=== PATIENT | male | born 1980 | race Two or more races ===

== ENCOUNTER 2023-07-19 11:10 | Emergency (ER) | payer OTHER ==
[~2023-07-19] VITALS: Ht 157.5 cm; Wt 55.0 kg
[2023-07-19] MEDS ORDERED: ONDANSETRON HCL 4 MG/2 ML VIAL IV ONE (11:45)
[2023-07-19] MEDS ORDERED: SODIUM CHLORIDE 0.9% 2,000 ML IV ONE ×2 (11:45→14:00)
[2023-07-19 11:57] LABS: Basophils # (auto) 0.1 10 ^3/uL (0-0.2); Basophils % (auto) 1.2 % (0.0-2.0); Eosinophils # (auto) 0.1 10 ^3/uL (0-0.8); Eosinophils % (auto) 1.1 % (0.0-7.0); Hematocrit 38.6 % (41.0-53.0); Hemoglobin 12.7 g/dL (13.5-17.5); Lymphocytes # (auto) 1.8 10 ^3/uL (0.4-5.4); Lymphocytes % (auto) 18.8 % (10.0-50.0); Mean Corpuscular Hemoglobin 28.8 pg (28.0-32.0); Mean Corpuscular Hgb Conc. 32.9 g/dL (32.0-36.0); Mean Corpuscular Volume 87.4 fL (80.0-100.0); Monocytes # (auto) 0.4 10 ^3/uL (0-1.3); Monocytes % (auto) 4.1 % (0.0-12.0); Neutrophils # (auto) 7.3 10 ^3/uL (1.6-8.6); Neutrophils % (auto) 74.8 % (37.0-80.0); Nucleated Red Blood Cells % 0.1 %; Red Blood Cells 4.42 10^6/uL (4.5-5.90); Red Cell Distribution Width 14.4 % (11.8-14.3); White Blood Cell 9.8 10^3/uL (4.4-10.8)
[2023-07-19 13:36] LABS: Alanine Aminotransferase 13 U/L (7-40); Albumin 2.9 g/dL (3.2-4.8); Alkaline Phosphatase 221 U/L (46-116); Anion Gap 5.7 (5-15); Aspartate Aminotransferase 14 U/L (13-40); BUN/Creatinine Ratio 39.2 (10.0-20.0); Blood Urea Nitrogen 38 mg/dL (9-23); Calcium 8.4 mg/dL (8.5-10.1); Carbon Dioxide 27.3 mmol/L (20-30); Chloride 101 mmol/L (98-107); Glucose 378 mg/dL (74-106); Magnesium 1.7 mg/dL (1.6-2.6); Potassium 4.8 mmol/L (3.5-5.1); Sodium 134 mmol/L (136-145)
[2023-07-19 13:37] LABS: Bilirubin, Total 0.2 mg/dL (0.2-1.0); Total Protein 5.2 g/dL (5.7-8.2)
[2023-07-19 20:45] VITALS: BP 136/82; PULSE 87; RESP 16; TEMP 98.4; O2SAT 99
== END 2023-07-20 03:44 | disposition home or self-care (01) ==
LOC: ER 11:10
DX: E11.65 Type 2 diabetes mellitus with hyperglycemia (principal); R79.89 Other specified abnormal findings of blood chemistry; Z86.73 Personal history of transient ischemic attack (TIA), and cerebral infarction without residual deficits
CPT/HCPCS: 36415; 80053; 82010; 82962; 83735; 85025; 96361; 96374; 99283; J2405; J7030

== ENCOUNTER 2024-06-08 08:34 | Inpatient (IN) | payer OTHER ==
[~2024-06-08] VITALS: Ht 157.5 cm; Wt 41.9 kg
[2024-06-08] MEDS: SODIUM CHLORIDE 0.9% 1,000 ML IV ONE ×4 (09:00→10:45)
[2024-06-08] MEDS: AZITHROMYCIN 500MG/ 250ML 250 ML IV ONE (09:00)
[2024-06-08 09:10] LABS: Base Excess -22.9 mmol/L (-2.0-2.0)
[2024-06-08] MEDS: cefTRIAXone 1GM/50ML D5W 50 ML IV ONE (09:13)
[2024-06-08] MEDS: SODIUM BICARB 8.4% 50Meq/50ml SYR Vial IV ONE ×2 (09:15→16:08)
[2024-06-08 10:13] LABS: Basophils # (auto) 0.1 10 ^3/uL (0-0.2); Basophils % (auto) 0.5 % (0.0-2.0); Eosinophils # (auto) 0 10 ^3/uL (0-0.8); Hematocrit 28.8 % (41.0-53.0); Hemoglobin 9.1 g/dL (13.5-17.5); Lymphocytes # (auto) 1.8 10 ^3/uL (0.4-5.4); Lymphocytes % (auto) 8.1 % (10.0-50.0); Mean Corpuscular Hgb Conc. 31.6 g/dL (32.0-36.0); Mean Corpuscular Volume 88.5 fL (80.0-100.0); Monocytes # (auto) 1.1 10 ^3/uL (0-1.3); Monocytes % (auto) 5.2 % (0.0-12.0); Neutrophils % (auto) 86.2 % (37.0-80.0); Nucleated Red Blood Cells % 0.1 %; Red Blood Cells 3.25 10^6/uL (4.5-5.90); Red Cell Distribution Width 17.6 % (11.8-14.3)
[2024-06-08 10:16] LABS: Alanine Aminotransferase 28 U/L (7-40); Albumin 3.4 g/dL (3.2-4.8); Alkaline Phosphatase 273 U/L (46-116); Anion Gap 14.00001 (5-15); Aspartate Aminotransferase 17 U/L (13-40); Bilirubin, Total < 0.2 mg/dL (0.2-1.0); Calcium 8.7 mg/dL (8.7-10.4); Chloride 114 mmol/L (98-107); Glucose 188 mg/dL (74-106); Sodium 138 mmol/L (136-145); Total Protein 7.5 g/dL (5.7-8.2)
[2024-06-08 10:23] LABS: BUN/Creatinine Ratio 46.8 (10.0-20.0)
[2024-06-08 10:24] VITALS: PULSE 114; RESP 22; O2SAT 97
[2024-06-08 10:26] LABS: Potassium 6.1 mmol/L (3.5-5.1)
[2024-06-08 10:29] LABS: Blood Urea Nitrogen 264 mg/dL (9-23); Carbon Dioxide < 10 mmol/L (20-30)
[2024-06-08] MEDS: SODIUM ZIRCONIUM CYCL 10 GM PAK PO ONE (10:45)
[2024-06-08] MEDS: FUROSEMIDE 20 MG/2 ML VIAL IV ONE (10:45)
[2024-06-08] MEDS: ALBUTEROL SULF 2.5 MG/0.5ML(0.5%) NEB SOLN NEB ONE (10:56)
[2024-06-08] MEDS: SODIUM BICARB 8.4% 50Meq/50ml SYR INJ IV ONE (11:05)
[2024-06-08] MEDS: DEXTROSE (50%) 50ML SYRG IV ONE (11:05)
[2024-06-08] MEDS: CALCIUM GLUC 1,000mg/50ml-NS 50 ML IV ONE (11:06)
[2024-06-08] MEDS: InsuLIN REG 1unit/0.01ml Soln (100units/ml) IV ONE (11:08)
[2024-06-08] MEDS ORDERED: ONDANSETRON HCL 4 MG/2 ML VIAL IV PRN (13:45)
[2024-06-08] MEDS ORDERED: DOCUSATE SOD 100 MG CAP PO PRN (13:45)
[2024-06-08] MEDS ORDERED: ACETAMINOPHEN 325 MG TAB PO PRN (13:45)
[2024-06-08] MEDS ORDERED: HYDROcodone-ACET 5/325MG TAB PO PRN (13:45)
[2024-06-08] MEDS ORDERED: MORPHINE SULFATE INJ 2 MG/ml SYRG IV PRN (13:45)
[2024-06-08] MEDS ORDERED: NITROGLYCERIN 0.4 MG SL TAB SL PRN (13:45)
[2024-06-08] MEDS: SODIUM BICARB 50mEq/50ml Vial 150 ML in D5W 5% 1,000 ML IV SCH (15:00)
[2024-06-08 15:04] LABS: Urine Bacteria None Seen /hpf (None Seen)
[2024-06-08 15:25] LABS: Urine Blood 2+ /uL (Negative); Urine Budding Yeast FEW /hpf (None Seen); Urine Clarity Ex.Turbid (Clear); Urine Color Brown (Yellow); Urine Protein, UAD 2+ (Negative); Urine Specific Gravity 1.011 (1.001-1.035); Urine Urobilinogen Normal (Negative); Urine WBC 5800 /hpf (0 - 3); Urine WBC Clumps PRESENT /hpf (None Seen)
[2024-06-08] MEDS: InsuLIN REG 1unit/0.01ml Soln (100units/ml) SC SCH (17:23)
[2024-06-08] MEDS: ACCU-CHEK COMFORT CURVE STRIP VI SCH (17:23)
[2024-06-08 19:30] VITALS: PULSE 133; RESP 22; O2SAT 97
[2024-06-08] MEDS: InsuLIN REG 1unit/0.01ml Soln (100units/ml) ONE (21:43)
[2024-06-08 22:13] LABS: Chloride 115 mmol/L (98-107); Glucose 231 mg/dL (74-106)
[2024-06-08 22:14] LABS: Sodium 149 mmol/L (136-145)
[2024-06-08 22:22] LABS: BUN/Creatinine Ratio 48.5 (10.0-20.0); Calcium 7.9 mg/dL (8.7-10.4); Potassium 3.8 mmol/L (3.5-5.1)
[2024-06-08 22:35] LABS: Blood Urea Nitrogen 238 mg/dL (9-23)
[2024-06-08 22:38] LABS: Anion Gap 17 (5-15); Carbon Dioxide 17 mmol/L (20-30)
[2024-06-08] MEDS: HEPARIN SODIUM (PORCINE) 5000 UNITS/ML 1ML VIAL SC SCH (22:38)
[2024-06-09] VITALS (35 sets, daily range): BP systolic 113–155; BP diastolic 64–107; PULSE 99–117; RESP 10–25; TEMP 97.5–98.2; O2SAT 95–100
[2024-06-09 05:13] LABS: Basophils # (auto) 0.1 10 ^3/uL (0-0.2); Basophils % (auto) 0.4 % (0.0-2.0); Eosinophils # (auto) 0 10 ^3/uL (0-0.8); Hematocrit 23.6 % (41.0-53.0); Hemoglobin 7.9 g/dL (13.5-17.5); Lymphocytes # (auto) 2.1 10 ^3/uL (0.4-5.4); Lymphocytes % (auto) 11.1 % (10.0-50.0); Mean Corpuscular Hemoglobin 27.6 pg (28.0-32.0); Mean Corpuscular Hgb Conc. 33.3 g/dL (32.0-36.0); Monocytes # (auto) 1.4 10 ^3/uL (0-1.3); Monocytes % (auto) 7.5 % (0.0-12.0); Neutrophils # (auto) 15.3 10 ^3/uL (1.6-8.6); Red Blood Cells 2.85 10^6/uL (4.5-5.90); Red Cell Distribution Width 17.1 % (11.8-14.3); White Blood Cell 18.8 10^3/uL (4.4-10.8)
[2024-06-09 05:27] LABS: Alanine Aminotransferase 23 U/L (7-40); Albumin 2.8 g/dL (3.2-4.8); Alkaline Phosphatase 206 U/L (46-116); Anion Gap 14 (5-15); Aspartate Aminotransferase 20 U/L (13-40); Bilirubin, Total 0.2 mg/dL (0.2-1.0); Calcium 7.9 mg/dL (8.7-10.4); Carbon Dioxide 24 mmol/L (20-30); Chloride 112 mmol/L (98-107); Glucose 169 mg/dL (74-106); Potassium 3.7 mmol/L (3.5-5.1); Sodium 150 mmol/L (136-145)
[2024-06-09 05:28] LABS: Total Protein 6.3 g/dL (5.7-8.2)
[2024-06-09 05:35] LABS: BUN/Creatinine Ratio 46.3 (10.0-20.0)
[2024-06-09 05:54] LABS: Blood Urea Nitrogen 209 mg/dL (9-23)
[2024-06-09] MEDS: SOD CHL 0.45% 1,000 ML IV SCH (06:41)
[2024-06-09] MEDS: BUMETANIDE 2.5mg/10ml (0.25 mg/ml) INJ IV ONE (06:46)
[2024-06-09] MEDS: PANTOPRAZOLE 40 MG/10 ML VIAL INJ IV SCH (09:20)
[2024-06-09] MEDS: AZITHROMYCIN 500MG/ 250ML 250 ML IV SCH (09:20)
[2024-06-09] MEDS: cefTRIAXone 1GM/50ML D5W 50 ML IV SCH (10:00)
[2024-06-09] MEDS: SODIUM CHLORIDE 0.9% 1,000 ML IV ONE (12:13)
[2024-06-09 13:34] LABS: Chloride 114 mmol/L (98-107); Potassium 3.6 mmol/L (3.5-5.1); Sodium 151 mmol/L (136-145)
[2024-06-09 13:35] LABS: Anion Gap 12 (5-15); Carbon Dioxide 25 mmol/L (20-30)
[2024-06-09 13:36] LABS: Calcium 7.4 mg/dL (8.7-10.4)
[2024-06-09 13:49] LABS: BUN/Creatinine Ratio 45.9 (10.0-20.0)
[2024-06-09 13:52] LABS: Blood Urea Nitrogen 179 mg/dL (9-23); Glucose 61 mg/dL (74-106)
[2024-06-10] VITALS (27 sets, daily range): BP systolic 99–186; BP diastolic 63–106; PULSE 85–124; RESP 11–22; TEMP 94.3–99.2; O2SAT 95–100
[2024-06-10] MEDS: hydrALAZINE HCL 20 MG/ML VL IV PRN (05:06)
[2024-06-10] MEDS ORDERED: hydrALAZINE HCL 20 MG/ML VL IV PRN (05:15)
[2024-06-10] MEDS ORDERED: hydrALAZINE HCL 20 MG/ML VL IV ONE (06:00)
[2024-06-10 08:40] LABS: Basophils # (auto) 0 10 ^3/uL (0-0.2); Basophils % (auto) 0.2 % (0.0-2.0); Eosinophils # (auto) 0 10 ^3/uL (0-0.8); Hematocrit 25.3 % (41.0-53.0); Hemoglobin 8.4 g/dL (13.5-17.5); Lymphocytes # (auto) 2.2 10 ^3/uL (0.4-5.4); Lymphocytes % (auto) 15.6 % (10.0-50.0); Mean Corpuscular Hemoglobin 28.2 pg (28.0-32.0); Mean Corpuscular Hgb Conc. 33.2 g/dL (32.0-36.0); Mean Corpuscular Volume 84.9 fL (80.0-100.0); Monocytes # (auto) 0.8 10 ^3/uL (0-1.3); Monocytes % (auto) 5.5 % (0.0-12.0); Neutrophils # (auto) 11.2 10 ^3/uL (1.6-8.6); Neutrophils % (auto) 78.7 % (37.0-80.0); Red Blood Cells 2.98 10^6/uL (4.5-5.90); Red Cell Distribution Width 16.8 % (11.8-14.3); White Blood Cell 14.2 10^3/uL (4.4-10.8)
[2024-06-10 09:01] LABS: Chloride 112 mmol/L (98-107); Potassium 3.5 mmol/L (3.5-5.1); Sodium 151 mmol/L (136-145)
[2024-06-10 09:02] LABS: Anion Gap 19 (5-15); Carbon Dioxide 20 mmol/L (20-30)
[2024-06-10 09:04] LABS: Calcium 7.2 mg/dL (8.7-10.4)
[2024-06-10 09:07] LABS: Glucose 149 mg/dL (74-106)
[2024-06-10 09:16] LABS: BUN/Creatinine Ratio 50.8 (10.0-20.0)
[2024-06-10 09:17] LABS: Blood Urea Nitrogen 162 mg/dL (9-23)
[2024-06-10] MEDS: POTASSIUM CHL 20 Meq TABLET PO ONE (14:42)
[2024-06-10] MEDS: DEXTROSE (50%) 50ML SYRG IV PRN (17:46)
[2024-06-11] VITALS (15 sets, daily range): BP systolic 130–153; BP diastolic 86–105; PULSE 72–109; RESP 12–32; TEMP 98.3–98.8; O2SAT 94–100
[2024-06-11 10:16] LABS: Chloride 115 mmol/L (98-107); Potassium 3.4 mmol/L (3.5-5.1); Sodium 149 mmol/L (136-145)
[2024-06-11 10:17] LABS: Anion Gap 12 (5-15); Carbon Dioxide 22 mmol/L (20-30)
[2024-06-11 10:18] LABS: Calcium 6.8 mg/dL (8.7-10.4)
[2024-06-11 10:22] LABS: Glucose 218 mg/dL (74-106)
[2024-06-11 10:23] LABS: BUN/Creatinine Ratio 49.6 (10.0-20.0)
[2024-06-11 10:25] LABS: Blood Urea Nitrogen 125 mg/dL (9-23)
[2024-06-11 10:58] LABS: Basophils # (auto) 0 10 ^3/uL (0-0.2); Eosinophils # (auto) 0 10 ^3/uL (0-0.8); Lymphocytes # (auto) 2.3 10 ^3/uL (0.4-5.4); Monocytes # (auto) 0.7 10 ^3/uL (0-1.3); Nucleated Red Blood Cells % 0.1 %; White Blood Cell 14.3 10^3/uL (4.4-10.8)
[2024-06-11 11:00] LABS: Basophils % (auto) 0.2 % (0.0-2.0); Hematocrit 23.2 % (41.0-53.0); Hemoglobin 7.5 g/dL (13.5-17.5); Lymphocytes % (auto) 16.3 % (10.0-50.0); Mean Corpuscular Hemoglobin 28.1 pg (28.0-32.0); Mean Corpuscular Hgb Conc. 32.5 g/dL (32.0-36.0); Mean Corpuscular Volume 86.6 fL (80.0-100.0); Monocytes % (auto) 4.9 % (0.0-12.0); Neutrophils # (auto) 11.2 10 ^3/uL (1.6-8.6); Neutrophils % (auto) 78.6 % (37.0-80.0); Red Blood Cells 2.68 10^6/uL (4.5-5.90)
[2024-06-11] MEDS ORDERED: POTASSIUM CHL 20 Meq TABLET PO ONE (14:45)
[2024-06-11] MEDS: SOD CHL 0.45% 1,000 ML IV SCH (15:12)
[2024-06-11] MEDS: POTASSIUM EFFERVESENT TAB 25 MEQ PO ONE ×2 (17:16→17:45)
[2024-06-12] VITALS (8 sets, daily range): BP systolic 98–157; BP diastolic 70–102; PULSE 10–103; RESP 12–19; TEMP 97.6–98.5; O2SAT 93–100
[2024-06-12 04:53] LABS: Basophils # (auto) 0 10 ^3/uL (0-0.2); Basophils % (auto) 0.2 % (0.0-2.0); Eosinophils # (auto) 0 10 ^3/uL (0-0.8); Eosinophils % (auto) 0.1 % (0.0-7.0); Hematocrit 25.7 % (41.0-53.0); Hemoglobin 8.3 g/dL (13.5-17.5); Lymphocytes # (auto) 3.4 10 ^3/uL (0.4-5.4); Lymphocytes % (auto) 27.8 % (10.0-50.0); Mean Corpuscular Hgb Conc. 32.2 g/dL (32.0-36.0); Mean Corpuscular Volume 86.9 fL (80.0-100.0); Monocytes # (auto) 0.9 10 ^3/uL (0-1.3); Monocytes % (auto) 7.1 % (0.0-12.0); Neutrophils % (auto) 64.8 % (37.0-80.0); Nucleated Red Blood Cells % 0.1 %; Red Blood Cells 2.96 10^6/uL (4.5-5.90); Red Cell Distribution Width 16.5 % (11.8-14.3); White Blood Cell 12.3 10^3/uL (4.4-10.8)
[2024-06-12 05:05] LABS: Anion Gap 10 (5-15); Carbon Dioxide 25 mmol/L (20-30); Chloride 110 mmol/L (98-107); Sodium 145 mmol/L (136-145)
[2024-06-12 05:11] LABS: BUN/Creatinine Ratio 42.3 (10.0-20.0); Glucose 131 mg/dL (74-106)
[2024-06-12 05:54] LABS: Blood Urea Nitrogen 85 mg/dL (9-23)
[2024-06-12] MEDS: SOD CHL 0.45% 1,000 ML IV SCH (17:27)
[2024-06-12] MEDS: NYSTATIN TOPICAL POWDER 15GM TOP SCH (22:00)
[2024-06-13] VITALS (9 sets, daily range): BP systolic 107–127; BP diastolic 73–86; PULSE 86–100; RESP 16–20; TEMP 98.1–98.8; O2SAT 90–100
[2024-06-13 05:52] LABS: Basophils # (auto) 0 10 ^3/uL (0-0.2); Basophils % (auto) 0.3 % (0.0-2.0); Eosinophils # (auto) 0.1 10 ^3/uL (0-0.8); Lymphocytes # (auto) 3.7 10 ^3/uL (0.4-5.4); Monocytes # (auto) 0.8 10 ^3/uL (0-1.3); Monocytes % (auto) 6.3 % (0.0-12.0)
[2024-06-13 05:54] LABS: Eosinophils % (auto) 1.1 % (0.0-7.0); Hematocrit 23.1 % (41.0-53.0); Hemoglobin 7.6 g/dL (13.5-17.5); Lymphocytes % (auto) 29.4 % (10.0-50.0); Mean Corpuscular Hemoglobin 28.4 pg (28.0-32.0); Mean Corpuscular Hgb Conc. 32.7 g/dL (32.0-36.0); Mean Corpuscular Volume 86.8 fL (80.0-100.0); Neutrophils # (auto) 7.9 10 ^3/uL (1.6-8.6); Neutrophils % (auto) 62.9 % (37.0-80.0); Nucleated Red Blood Cells % 0.1 %; Red Blood Cells 2.66 10^6/uL (4.5-5.90); Red Cell Distribution Width 16.2 % (11.8-14.3); White Blood Cell 12.5 10^3/uL (4.4-10.8)
[2024-06-13 06:16] LABS: Alanine Aminotransferase 22 U/L (7-40); Alkaline Phosphatase 231 U/L (46-116); Anion Gap 7 (5-15); BUN/Creatinine Ratio 39.1 (10.0-20.0); Calcium 6.7 mg/dL (8.7-10.4); Carbon Dioxide 24 mmol/L (20-30); Chloride 109 mmol/L (98-107); Glucose 107 mg/dL (74-106); Potassium 3.8 mmol/L (3.5-5.1); Sodium 140 mmol/L (136-145)
[2024-06-13 06:17] LABS: Albumin 2.5 g/dL (3.2-4.8); Aspartate Aminotransferase 18 U/L (13-40)
[2024-06-13 06:18] LABS: Bilirubin, Total 0.2 mg/dL (0.2-1.0); Blood Urea Nitrogen 66 mg/dL (9-23); Total Protein 5.6 g/dL (5.7-8.2)
[2024-06-13] MEDS: SOD CHL 0.45% 1,000 ML IV SCH (15:44)
[2024-06-14] VITALS (9 sets, daily range): BP systolic 124–186; BP diastolic 78–96; PULSE 87–109; RESP 17–20; TEMP 36.9; O2SAT 97–100
[2024-06-14 07:05] LABS: Basophils % (auto) 0.4 % (0.0-2.0); Eosinophils # (auto) 0.1 10 ^3/uL (0-0.8); Hemoglobin 7.7 g/dL (13.5-17.5)
[2024-06-14 07:09] LABS: Basophils # (auto) 0 10 ^3/uL (0-0.2); Eosinophils % (auto) 0.9 % (0.0-7.0); Hematocrit 23.9 % (41.0-53.0); Lymphocytes # (auto) 4.4 10 ^3/uL (0.4-5.4); Lymphocytes % (auto) 30.6 % (10.0-50.0); Mean Corpuscular Hemoglobin 28.3 pg (28.0-32.0); Mean Corpuscular Hgb Conc. 32.2 g/dL (32.0-36.0); Monocytes # (auto) 0.7 10 ^3/uL (0-1.3); Monocytes % (auto) 4.9 % (0.0-12.0); Neutrophils % (auto) 63.2 % (37.0-80.0); Nucleated Red Blood Cells % 0.1 %; Red Blood Cells 2.71 10^6/uL (4.5-5.90); Red Cell Distribution Width 15.9 % (11.8-14.3); White Blood Cell 14.2 10^3/uL (4.4-10.8)
[2024-06-14 07:38] LABS: Calcium 6.8 mg/dL (8.7-10.4); Chloride 108 mmol/L (98-107); Potassium 4.2 mmol/L (3.5-5.1); Sodium 136 mmol/L (136-145)
[2024-06-14 07:39] LABS: Anion Gap 11 (5-15); Carbon Dioxide 17 mmol/L (20-30)
[2024-06-14 07:44] LABS: BUN/Creatinine Ratio 26.8 (10.0-20.0); Glucose 115 mg/dL (74-106)
[2024-06-14 07:47] LABS: Blood Urea Nitrogen 41 mg/dL (9-23)
[2024-06-14] MEDS ORDERED: CIPR-173 PO (12:49)
[2024-06-15 01:00] VITALS: BP 125/74; PULSE 97; RESP 16; TEMP 99.1; O2SAT 98
[2024-06-15 05:00] VITALS: BP 140/86; PULSE 98; RESP 17; TEMP 98; O2SAT 98
[2024-06-15 08:46] VITALS: BP 132/79; PULSE 96; RESP 17; TEMP 98.2; O2SAT 97
[2024-06-15 22:00] VITALS: BP 129/54; PULSE 62; RESP 17; TEMP 97.5; O2SAT 95
== END 2024-06-15 08:37 | disposition hospice, home (50) | DRG 720 ==
LOC: ER 08:34 → EDBD 08:34 → DOU 13:43 → DOU IN ICU 06-09 02:00 → TELE-WESTW 06-11 18:30
PROVIDERS: ADMIT Nurse Practitioner; ATTEND Nurse Practitioner
DX: A41.9 Sepsis, unspecified organism (principal); R65.21 Severe sepsis with septic shock; G93.41 Metabolic encephalopathy; E87.20 Acidosis, unspecified; E46 Unspecified protein-calorie malnutrition; E11.22 Type 2 diabetes mellitus with diabetic chronic kidney disease; D64.9 Anemia, unspecified; N17.9 Acute kidney failure, unspecified; E86.0 Dehydration; N13.6 Pyonephrosis; E11.65 Type 2 diabetes mellitus with hyperglycemia; E87.5 Hyperkalemia; R62.7 Adult failure to thrive; N18.32 Chronic kidney disease, stage 3b; Z86.73 Personal history of transient ischemic attack (TIA), and cerebral infarction without residual deficits; Z74.01 Bed confinement status; Z51.5 Encounter for palliative care; Z99.2 Dependence on renal dialysis; Z83.3 Family history of diabetes mellitus; Z82.3 Family history of stroke; Z68.1 Body mass index [BMI] 19.9 or less, adult; Z79.4 Long term (current) use of insulin; N30.00 Acute cystitis without hematuria; R79.89 Other specified abnormal findings of blood chemistry
CPT/HCPCS: 36415; 36600; 71045; 76775; 80048; 80053; 81001; 82805; 82962; 83605; 84132; 85025; 87040; 87081; 87086; 87088; 87186; 93005; 93306; 94640; 96366; 96367; 96368; 96372; 96375; G0378; J1815; J2470; J7042

== ENCOUNTER 2024-06-22 05:34 | Inpatient (IN) | payer OTHER ==
[~2024-06-22] VITALS: Ht 149.9 cm; Wt 45.0 kg
[2024-06-22] VITALS (8 sets, daily range): BP systolic 117–161; BP diastolic 76–97; PULSE 65–89; RESP 13–17; TEMP 97.4–98.5; O2SAT 95–100
[~2024-06-22 05:34] MED LIST: CIPR-173 PO
[2024-06-22 07:05] LABS: Chloride 107 mmol/L (98-107); Potassium 4.1 mmol/L (3.5-5.1); Sodium 136 mmol/L (136-145)
[2024-06-22 07:06] LABS: Anion Gap 11 (5-15); Carbon Dioxide 18 mmol/L (20-30)
[2024-06-22 07:07] LABS: Basophils # (auto) 0 10 ^3/uL (0-0.2); Calcium 7.7 mg/dL (8.7-10.4); Eosinophils # (auto) 0 10 ^3/uL (0-0.8); Monocytes # (auto) 0.8 10 ^3/uL (0-1.3); Nucleated Red Blood Cells % 0.1 %
[2024-06-22 07:11] LABS: BUN/Creatinine Ratio 20.7 (10.0-20.0); Basophils % (auto) 0.5 % (0.0-2.0); Blood Urea Nitrogen 60 mg/dL (9-23); Eosinophils % (auto) 0.1 % (0.0-7.0); Glucose 167 mg/dL (74-106); Hematocrit 21.1 % (41.0-53.0); Lymphocytes % (auto) 15.7 % (10.0-50.0); Mean Corpuscular Hemoglobin 28.1 pg (28.0-32.0); Mean Corpuscular Hgb Conc. 32.8 g/dL (32.0-36.0); Mean Corpuscular Volume 85.8 fL (80.0-100.0); Monocytes % (auto) 13.4 % (0.0-12.0); Neutrophils # (auto) 4.3 10 ^3/uL (1.6-8.6); Neutrophils % (auto) 70.3 % (37.0-80.0); Red Blood Cells 2.46 10^6/uL (4.5-5.90); Red Cell Distribution Width 16.2 % (11.8-14.3); White Blood Cell 6.1 10^3/uL (4.4-10.8)
[2024-06-22 07:18] LABS: Hemoglobin 6.9 g/dL (13.5-17.5)
[2024-06-22] MEDS ORDERED: DOCUSATE SOD 100 MG CAP PO PRN (11:00)
[2024-06-22] MEDS ORDERED: ACETAMINOPHEN 325 MG TAB PO PRN (11:00)
[2024-06-22] MEDS ORDERED: NITROGLYCERIN 0.4 MG SL TAB SL PRN (11:00)
[2024-06-22] MEDS ORDERED: MORPHINE SULFATE INJ 2 MG/ml SYRG IV PRN ×2 (11:00)
[2024-06-22] MEDS ORDERED: ONDANSETRON HCL 4 MG/2 ML VIAL IV PRN (11:00)
[2024-06-22] MEDS ORDERED: HYDROcodone-ACET 5/325MG TAB PO PRN (11:00)
[2024-06-22 11:58] LABS: % Iron Saturation 13.1 % (20-55)
[2024-06-22 12:52] LABS: Folate (Folic Acid) 4.56 ng/mL (>5.38)
[2024-06-22 13:04] LABS: Urine Bacteria None Seen /hpf (None Seen)
[2024-06-22 13:24] LABS: Urine Blood 2+ /uL (Negative); Urine Clarity Ex.Turbid (Clear); Urine Color Brown (Yellow); Urine Protein, UAD 2+ (Negative); Urine Urobilinogen Normal (Negative); Urine WBC 5043 /hpf (0 - 3); Urine WBC Clumps PRESENT /hpf (None Seen); Urine pH 6.5 (5.0-9.0)
[2024-06-22] MEDS ORDERED: DEXTROSE (50%) 50ML SYRG IV PRN (17:15)
[2024-06-22] MEDS: SODIUM CHLORIDE 0.9% 1,000 ML IV SCH (20:03)
[2024-06-22 21:16] LABS: Hematocrit 29.2 % (41.0-53.0); Hemoglobin 9.6 g/dL (13.5-17.5)
[2024-06-22] MEDS: ASCORBIC ACID 500 MG TAB PO SCH (21:53)
[2024-06-22] MEDS: InsuLIN REG 1unit/0.01ml Soln (100units/ml) SC SCH (21:54)
[2024-06-22] MEDS: ACCU-CHEK COMFORT CURVE STRIP VI SCH (21:54)
[2024-06-23] VITALS (10 sets, daily range): BP systolic 113–165; BP diastolic 56–111; PULSE 70–117; RESP 14–18; TEMP 98–98.3; O2SAT 98–100
[2024-06-23 05:06] LABS: Basophils # (auto) 0 10 ^3/uL (0-0.2); Basophils % (auto) 0.5 % (0.0-2.0); Eosinophils # (auto) 0 10 ^3/uL (0-0.8); Eosinophils % (auto) 0.4 % (0.0-7.0); Hematocrit 30.7 % (41.0-53.0); Hemoglobin 10.2 g/dL (13.5-17.5); Lymphocytes # (auto) 1.8 10 ^3/uL (0.4-5.4); Lymphocytes % (auto) 24.8 % (10.0-50.0); Mean Corpuscular Hemoglobin 28.9 pg (28.0-32.0); Mean Corpuscular Hgb Conc. 33.2 g/dL (32.0-36.0); Monocytes # (auto) 0.8 10 ^3/uL (0-1.3); Monocytes % (auto) 11.3 % (0.0-12.0); Neutrophils # (auto) 4.5 10 ^3/uL (1.6-8.6); Red Blood Cells 3.54 10^6/uL (4.5-5.90); Red Cell Distribution Width 15.4 % (11.8-14.3); White Blood Cell 7.2 10^3/uL (4.4-10.8)
[2024-06-23 05:20] LABS: Alanine Aminotransferase 60 U/L (7-40); Albumin 2.9 g/dL (3.2-4.8); Alkaline Phosphatase 452 U/L (46-116); Anion Gap 10 (5-15); Aspartate Aminotransferase 57 U/L (13-40); BUN/Creatinine Ratio 21.3 (10.0-20.0); Calcium 7.7 mg/dL (8.7-10.4); Carbon Dioxide 17 mmol/L (20-30); Chloride 113 mmol/L (98-107); Glucose 101 mg/dL (74-106); Sodium 140 mmol/L (136-145)
[2024-06-23 05:21] LABS: Bilirubin, Total 0.2 mg/dL (0.2-1.0)
[2024-06-23 05:28] LABS: Blood Urea Nitrogen 47 mg/dL (9-23)
[2024-06-23 08:57] LABS: Magnesium 1.2 mg/dL (1.6-2.6)
[2024-06-23 08:58] LABS: Phosphorus 5.6 mg/dL (2.4-5.1)
[2024-06-23] MEDS: PANTOPRAZOLE 40 MG TAB PO ONE (09:25)
[2024-06-23] MEDS: ZINC SULFATE 220mg CAP or TAB PO SCH (09:56)
[2024-06-23] MEDS: MULTIPLE VITAMIN TAB PO SCH (09:56)
[2024-06-23 11:21] LABS: Amphetamine Screen, Urine Neg (NEGATIVE)
[2024-06-23 11:24] LABS: Barbiturate Scree,Urine Neg (NEGATIVE); Benzodiazephine Screen, Urine Neg (NEGATIVE); Cannabinoid Screen, Urine Neg (NEGATIVE); Cocaine Screen, Urine Neg (NEGATIVE); Creatinine, Urine 14.44 mg/dL (30.0-125.0); Opiate Scree,Urine Neg (NEGATIVE); Phencyclidine Screen, Urine Neg (NEGATIVE)
[2024-06-23 11:27] LABS: Protein, Urine 317.7 mg/dL (0.0-11.9)
[2024-06-23] MEDS: hydrALAZINE HCL 20 MG/ML VL IV PRN (12:37)
[2024-06-23] MEDS: ERGOCALCIFEROL 50,000 UNIT(1.25MG) CAP PO SCH (14:09)
[2024-06-23] MEDS: MAGNESIUM SULFATE 1GM/100ML 100 ML IV SCH (14:09)
[2024-06-23] MEDS: CHOLECALCIFEROL (VITD3) 1,000UNIT=25mCg TAB PO SCH (16:05)
[2024-06-24] VITALS (7 sets, daily range): BP systolic 121–156; BP diastolic 57–101; PULSE 79–89; RESP 17–21; TEMP 97.9–98.9; O2SAT 96–99
[2024-06-24] MEDS: PANTOPRAZOLE 40 MG TAB PO SCH (05:28)
[2024-06-24 07:07] LABS: Anion Gap 12 (5-15); Carbon Dioxide 16 mmol/L (20-30); Chloride 110 mmol/L (98-107); Potassium 3.7 mmol/L (3.5-5.1); Sodium 138 mmol/L (136-145)
[2024-06-24 07:09] LABS: Calcium 7.8 mg/dL (8.7-10.4)
[2024-06-24 07:13] LABS: Glucose 117 mg/dL (74-106)
[2024-06-24 07:14] LABS: BUN/Creatinine Ratio 19.3 (10.0-20.0); Blood Urea Nitrogen 39 mg/dL (9-23)
[2024-06-24] MEDS ORDERED: CIPR-173 PO (11:13)
[2024-06-24] MEDS ORDERED: FUROSEMIDE 40 MG/4 ML VIAL ONE (13:10)
[2024-06-24] MEDS: CIPROFLOXACIN 400MG/200ML 200 ML IV ONE (15:06)
[2024-06-24] MEDS: FUROSEMIDE 40 MG/4 ML VIAL IV ONE (15:07)
== END 2024-06-24 17:59 | disposition hospice, home (50) | DRG 52 ==
LOC: ER 05:34 → EDBD 05:34 → TELE 10:49 → TELE-WESTW 20:59
PROVIDERS: ADMIT Nurse Practitioner; ATTEND Nurse Practitioner
PROC: 30233N1 Transfusion of Nonautologous Red Blood Cells into Peripheral Vein, Percutaneous Approach (ICD-10-PCS; principal; 2024-06-22)
DX: G93.41 Metabolic encephalopathy (principal); N17.0 Acute kidney failure with tubular necrosis; R64 Cachexia; E43 Unspecified severe protein-calorie malnutrition; E11.649 Type 2 diabetes mellitus with hypoglycemia without coma; E88.09 Other disorders of plasma-protein metabolism, not elsewhere classified; N13.6 Pyonephrosis; R62.7 Adult failure to thrive; D64.9 Anemia, unspecified; E11.22 Type 2 diabetes mellitus with diabetic chronic kidney disease; E11.65 Type 2 diabetes mellitus with hyperglycemia; E83.42 Hypomagnesemia; N18.9 Chronic kidney disease, unspecified; Z68.20 Body mass index [BMI] 20.0-20.9, adult; Z51.5 Encounter for palliative care; Z86.73 Personal history of transient ischemic attack (TIA), and cerebral infarction without residual deficits; Z83.3 Family history of diabetes mellitus; Z82.3 Family history of stroke; Z74.01 Bed confinement status; Z79.4 Long term (current) use of insulin
CPT/HCPCS: 36415; 74176; 78707; 80048; 80053; 80307; 81001; 82043; 82270; 82306; 82570; 82607; 82728; 82746; 82962; 83036; 83540; 83550; 83735; 83930; 83935; 84100; 84133; 84156; 84300; 84443; 85014; 85018; 85025; 86850; 86900; 86901; 86920; 87086; 87088; 96360; G0378; J1815

== ENCOUNTER 2024-12-29 05:09 | Inpatient (IN) | payer OTHER ==
[~2024-12-29] VITALS: Ht 160 cm; Wt 55.6 kg
[~2024-12-29 05:09] MED LIST changes: +AMLO1TAB23 PO; +GLIP-110 PO; +LISI40TA16 PO; +METF-370 PO; +TAMS0.4C39 PO
[2024-12-29] MEDS: DEXTROSE 50% SYRINGE 50 ML IV ONE ×2 (05:35→09:43)
[2024-12-29] MEDS: DEXTROSE (50%) 50ML SYRG IV ONE ×3 (05:50→09:30)
[2024-12-29 06:02] LABS: Basophils # (auto) 0.1 10 ^3/uL (0-0.2); Eosinophils # (auto) 0 10 ^3/uL (0-0.8); Hemoglobin 9.1 g/dL (13.5-17.5)
[2024-12-29 06:05] LABS: Basophils % (auto) 0.3 % (0.0-2.0); Hematocrit 28.7 % (41.0-53.0); Lymphocytes # (auto) 1.1 10 ^3/uL (0.4-5.4); Lymphocytes % (auto) 6.8 % (10.0-50.0); Mean Corpuscular Hemoglobin 29.6 pg (28.0-32.0); Mean Corpuscular Hgb Conc. 31.6 g/dL (32.0-36.0); Mean Corpuscular Volume 93.7 fL (80.0-100.0); Neutrophils # (auto) 14.3 10 ^3/uL (1.6-8.6); Neutrophils % (auto) 86.9 % (37.0-80.0); Platelet Count (auto) 282 10^3/uL (140-450); Red Blood Cells 3.07 10^6/uL (4.5-5.90); Red Cell Distribution Width 18.6 % (11.8-14.3); White Blood Cell 16.5 10^3/uL (4.4-10.8)
[2024-12-29 06:10] LABS: INR 0.97 (0.9-1.15); Partial Thromboplastin Time 29.6 SEC (24.5-34.5); Prothrombin Time 10.3 sec (9.3-11.8)
--- NOTE | 2024-12-29 06:44 | ECG ---
[facility] Test Date: 2024-12-29 Test Time: 05:12:21 Pat Name: SARAH BETH VARGAS Department: ED Room: [address] [place] [address] Gender: M [employer] Representative [employer]: YISEL : 1980 Requested By: VANESSA LEE Order Number: [id number] Reading MD: Balwinder Gama Measurements Intervals [place] Rate: 109 P: 19 WA: 155 QRS: 13 QRSD: 87 T: 30 QT: 337 QTc: 454 Interpretive Statements Sinus tachycardia Baseline wander in lead(s) V1 Electronically Signed On 12-29-2024 17:52:10 PST by Balwinder Gama Please click the below link to view image of tracing.
[2024-12-29 06:55] LABS: Alanine Aminotransferase 32 U/L (7-40); Anion Gap 10 (5-15); Aspartate Aminotransferase 32 U/L (13-40); BUN/Creatinine Ratio 29.4 (10.0-20.0); Magnesium 1.7 mg/dL (1.6-2.6); Sodium 137 mmol/L (136-145); Total Protein 6.2 g/dL (5.7-8.2)
[2024-12-29 06:56] LABS: Albumin 3.1 g/dL (3.2-4.8); Alkaline Phosphatase 400 U/L (46-116); Bilirubin, Total < 0.2 mg/dL (0.2-1.0); Blood Urea Nitrogen 63 mg/dL (9-23); Calcium 8.6 mg/dL (8.7-10.4); Carbon Dioxide 16 mmol/L (20-31); Chloride 111 mmol/L (98-107); Glucose 179 mg/dL (74-106); Potassium 5.5 mmol/L (3.5-5.1)
--- NOTE | 2024-12-29 06:56 | ED.PDOC ---
History of Present Illness HPI Comments 44-year-old male brought by paramedics from home because of altered level of consciousness. He has been behaving different for the past few hours as per family. Blood sugar on arrival was 40 for which he was given dextrose prior to coming to the ER. He was placed on oxygen because shortness a breath. Patient unable to answering any questions. History of cerebral palsy. He is bed ridden. Blood sugar again dipped in the ER for which she was given D50. Family not at bedside. Chief Complaint: Hypoglycemia Time Seen by MD: 06:22 Primary Care Provider: EBONIE Reviewed Notes: Nurses Notes, Medications, Allergies Allergies: Coded Allergies: NO KNOWN ALLERGIES (Unverified , 07/19/23) Home Meds Active Scripts Ciprofloxacin Hcl (Cipro) 500 Mg Tab, 1 TAB PO BID for 7 Days, #14 TAB Prov:RAÚL STEEL Angie WELSH 06/24/24 Information Source: Emergency Med Personnel Mode of Arrival: EMS Severity: Moderate Timing: Hours Duration: Since onset Past Medical History PAST MEDICAL HISTORY: Cancer, CVA, DM Surgical History: Denies all surgeries Family History Family History: Reviewed,noncontributory to illness Social History Smoker: Non-Smoker Alcohol: Denies ETOH Use Drugs: Denies Drug Use Lives In: Home Respiratory: reports: shortness of breath Unable to Obtain due to: Altered Mental Status Physical Exam General Appearance: Moderate Distress HEENT: Normal ENT Inspection, Pharynx Normal, TMs Normal Neck: Full Range of Motion, Non-Tender, Normal, Normal Inspection Respiratory: Respiratory Distress, Other (Coarse breath sounds) Cardiovascular: No Edema, No JVD, No Murmur, No Gallop, Normal Peripheral Pulses, Regular Rate/Rhythm Breast Exam: Deferred Gastrointestinal: No Organomegaly, Non Tender, No Pulsatile Mass, Normal Bowel Sounds, Soft Genitalia: Deferred Pelvic: Deferred Rectal: Deferred Extremities: Other (Cerebral palsy) Musculoskeletal : Apperance: Normal Neurologic: Alert (Name) Cerebellar Function: NOT DONE Reflexes: NOT DONE Skin: Dry, Normal Color, Warm Peripheral Pulses: 3+ Radial (R), 3+ Radial (L) Lymphatic: No Adenopathy Was a procedure done? Was a procedure done?: No Differential Dx Considerations may include: Pneumonia Electrolyte imbalance X-Ray, Labs, Meds, VS Vital Signs Date Time Temp Pulse Resp B/P (MAP) Pulse Ox O2 Delivery O2 Flow Rate FiO2 12/29/24 08:04 97.7 118 28 155/98 (117) 92 97.7 12/29/24 08:02 118 28 92 Nasal Cannula* 3 32 12/29/24 08:00 130 12/29/24 06:30 97.9 107 31 155/98 (117) 94 97.9 12/29/24 06:30 Nasal Cannula* 3 32 12/29/24 05:18 97.6 114 24 159/90 (113) 95 12/29/24 05:12 109 Lab Test 12/29/24 08:39 12/29/24 07:23 12/29/24 07:02 12/29/24 06:57 Range/Units Lactic Acid Level 1.4 0.4-2.0 mmol/L POC Glucose 130 H 44 *L 70-106 mg/dl Urine Color Colorless Yellow Urine Clarity Turbid H Clear Urine pH 6.0 5.0-9.0 Urine Specific [place] 1.014 1.001-1.035 Urine Protein 3+ H Negative Urine Ketones Negative Negative Urine Blood 1+ H Negative /uL Urine Nitrite Negative Negative Urine Bilirubin Negative Negative Urine Urobilinogen Normal Negative mg/dL Urine Leukocyte Esterase 3+ Negative /uL Urine RBC 3 0 - 3 /hpf Urine WBC Clumps Present None Seen /hpf Urine Microscopic WBC 447 H 0-3 /HPF Urine Squamous Epithelial Cells Few <5 /hpf Urine Bacteria None seen None Seen /hpf Urine Hyaline Casts Few 0 - 2 /lpf Urine Yeast (Budding) Occasional None Seen /hpf Urine Glucose 2+ H Normal mg/dL Test 12/29/24 05:44 Range/Units White Blood Count 16.5 H 4.4-10.8 10^3/uL Red Blood Count 3.07 L 4.5-5.90 10^6/uL Hemoglobin 9.1 L 13.5-17.5 g/dL Hematocrit 28.7 L 41.0-53.0 % Mean Corpuscular Volume 93.7 80.0-100.0 fL Mean Corpuscular Hemoglobin 29.6 28.0-32.0 pg Mean Corpuscular Hemoglobin Concent 31.6 L 32.0-36.0 g/dL Red Cell Distribution Width 18.6 H 11.8-14.3 % Platelet Count 282 140-450 10^3/uL Mean Platelet Volume 11.3 H 6.9-10.8 fL Neutrophils (%) (Auto) 86.9 H 37.0-80.0 % Lymphocytes (%) (Auto) 6.8 L 10.0-50.0 % Monocytes (%) (Auto) 6.0 0.0-12.0 % Eosinophils (%) (Auto) 0.0 0.0-7.0 % Basophils (%) (Auto) 0.3 0.0-2.0 % Neutrophils # (Auto) 14.3 H 1.6-8.6 10 ^3/uL Lymphocytes # (Auto) 1.1 0.4-5.4 10 ^3/uL Monocytes # (Auto) 1.0 0-1.3 10 ^3/uL Eosinophils # (Auto) 0 0-0.8 10 ^3/uL Basophils # (Auto) 0.1 0-0.2 10 ^3/uL Nucleated Red Blood Cells 0.0 % Prothrombin Time 10.3 9.3-11.8 sec Prothrombin Time INR 0.97 0.9-1.15 Activated Partial Thromboplast Time 29.6 24.5-34.5 SEC Sodium Level 137 136-145 mmol/L Potassium Level 5.5 H 3.5-5.1 mmol/L Chloride Level 111 H 98-107 mmol/L Carbon Dioxide Level 16 L 20-31 mmol/L Anion Gap 10 5-15 Blood Urea Nitrogen 63 H 9-23 mg/dL Creatinine 2.14 H 0.700-1.30 mg/dL Glomerular Filtration Rate Calc 38 >90 mL/min BUN/Creatinine Ratio 29.4 H 10.0-20.0 Serum Glucose 179 H 74-106 mg/dL Lactic Acid Level 2.1 *H 0.4-2.0 mmol/L Calcium Level 8.6 L 8.7-10.4 mg/dL Magnesium Level 1.7 1.6-2.6 mg/dL Total Bilirubin < 0.2 L 0.2-1.0 mg/dL Aspartate Amino Transferase (AST) 32 13-40 U/L Alanine Aminotransferase (ALT) 32 7-40 U/L Alkaline Phosphatase 400 H 46-116 U/L Troponin I High Sensitivity 16 </=54 ng/L B-Type Natriuretic Peptide 319.46 0-100 pg/mL Total Protein 6.2 5.7-8.2 g/dL Albumin 3.1 L 3.2-4.8 g/dL Thyroid Stimulating Hormone (TSH) Pending Current Medications Medications (Trade) Dose Ordered Sig/Wai Route Start Time Stop Time Status Last Admin Dextrose 50 ml ONCE ONCE IV 12/29/24 05:45 12/29/24 05:46 DC 12/29/24 05:50 Dextrose 1,000 ml @ 75 mls/hr [id number] ONCE IV 12/29/24 07:30 12/29/24 20:49 12/29/24 07:47 Dextrose 50 ml ONCE ONCE IV 12/29/24 07:30 12/29/24 07:31 DC 12/29/24 07:10 Acetaminophen (Tylenol Tablet) 650 mg Q6HP PRN PO 12/29/24 09:15 12/29/24 14:50 Sodium Chloride 1,000 ml @ 250 mls/hr Q4H ONCE IV 12/29/24 09:15 12/29/24 13:14 DC 12/29/24 11:40 [place] [address] Ph: [phone] DIAGNOSTIC IMAGING Diagnostic Imaging Report : [id number] Signed PATIENT: SARAH BETH VARGAS ACCT: [id number] UNIT: [id number] : 1980 LOC: ER ROOM / BED: / AGE / SEX: 44 / M ADM STATUS: REG ER SERVICE [id number] ORDERING PHYSICIAN: VANESSA LEE MD PROCEDURE(s): CXRP - CHEST PORTABLE REASON: SOB ORDER NUMBER(s): [id number], ACCESSION NUMBER(s): [id number] CHEST RADIOGRAPH Indication: SOB Technique: Single frontal view of the chest was obtained Comparison: XY CHEST PORTABLE on DOS: 06/08/24 FINDINGS: Lines and Tubes: None Lungs: Hazy left lung opacities. Pleura: No effusion. No pneumothorax. Cardiomediastinal contours: Cardiomegaly. Bones: No acute osseous abnormality. IMPRESSION: 1. Hazy left lung opacities which may represent pneumonia in the appropriate clinical setting. ATED BY: AMERICA HALEY MD DICTATED DATE/TIME: 12/29/24726 SIGNED BY: AMERICA HALEY MD SIGNED DATE/TIME: 12/29/24726 CC: Time of 1ST Reevaluation: 06:55 Reevaluation 1ST: Unchanged Patient Education/Counseling: Diagnosis, Treatment, Prognosis Family Education/Counseling: No Family Present Departure 1 Departure Time of Disposition: 06:56 Impression: Primary Impression: Metabolic encephalopathy Additional Impressions: Pneumonitis Hypoglycemia Disposition: ADMITTED INPATIENT Admit to: Med Surg Condition: Guarded Critical Care Note Critical Care Time?: Yes (90 min-critical care time only) Stability Stability form required: No Heart Score Heart Score: Heart Score Response (Comments) Value History N/A 0 EKG N/A 0 Age N/A 0 Risk Factors N/A 0 Troponin N/A 0 Total 0 I personally scribed for AMBER SAGASTUME MD ([email or web address]) on 12/29/24 at 07:48. Electronically submitted by Lupe Hemphill ([email or web address]). AMBER SAGASTUME MD Dec 29, 2024 06:56
[2024-12-29 06:59] LABS: Urine Bacteria None Seen /hpf (None Seen)
[2024-12-29 07:14] LABS: Lactic Acid w/Reflex 2.1 mmol/L (0.4-2.0)
--- NOTE | 2024-12-29 07:29 | DVH ---
CHEST RADIOGRAPH Indication: SOB Technique: Single frontal view of the chest was obtained Comparison: XY CHEST PORTABLE on DOS: 06/08/24 FINDINGS: Lines and Tubes: None Lungs: Hazy left lung opacities. Pleura: No effusion. No pneumothorax. Cardiomediastinal contours: Cardiomegaly. Bones: No acute osseous abnormality. IMPRESSION: 1. Hazy left lung opacities which may represent pneumonia in the appropriate clinical setting.
[2024-12-29 07:37] LABS: Urine Blood 1+ /uL (Negative); Urine Budding Yeast OCCASIONAL /hpf (None Seen); Urine Clarity Turbid (Clear); Urine Color Colorless (Yellow); Urine Hyaline Cast FEW /lpf (0 - 2); Urine Protein, UAD 3+ (Negative); Urine Specific Gravity 1.014 (1.001-1.035); Urine Squamous Epithelial Cell FEW /hpf (<5); Urine Urobilinogen Normal (Negative); Urine WBC 447 /HPF (0-3); Urine WBC Clumps PRESENT /hpf (None Seen)
[2024-12-29] MEDS: DEXTROSE 10% 1,000 ML IV ONE (07:47)
[2024-12-29 08:02] VITALS: PULSE 118; RESP 28; O2SAT 92
[2024-12-29] MEDS ORDERED: ONDANSETRON HCL 4 MG/2 ML VIAL IV PRN (09:15)
[2024-12-29] MEDS ORDERED: MORPHINE SULFATE INJ 2 MG/ml SYRG IV PRN (09:15)
[2024-12-29] MEDS ORDERED: DOCUSATE SOD 100 MG CAP PO PRN (09:15)
[2024-12-29] MEDS ORDERED: HYDROcodone-ACET 5/325MG TAB PO PRN (09:15)
[2024-12-29] MEDS ORDERED: NITROGLYCERIN 0.4 MG SL TAB SL PRN (09:15)
--- NOTE | 2024-12-29 09:23 | DVHHP2 ---
Admitting Diagnosis: ALOC History of Present Illness 44 yo male patient with hx of cerebral palsy and bed ridden BIBA with c/o ALOC. Family reported that patient had been behaving differently for a few hours. Mahsa ent was found to have a BS of 40. While in the emergency department the patient was evaluated by the provider, As per provider: Labs, vital signs, and imagining monitored. Patient will be admitted for further evaluation and treatment. I discussed admission with the patient/family and is in agreement to treatment plan. Patient Family History: FH: diabetes mellitus FHx: stroke Allergies: Coded Allergies: NO KNOWN ALLERGIES (Unverified , 07/19/23) Home Meds Active Scripts Ciprofloxacin Hcl (Cipro) 500 Mg Tab, 1 TAB PO BID for 7 Days, #14 TAB Prov:RAÚL STEEL HAIR TINTER 06/24/24 Current Medications Current Medications Medications (Trade) Dose Ordered Sig/Wai Route PRN Reason Start Time Stop Time Status Last Admin Acetaminophen/ Hydrocodone Bitart ([place] 5/325MG Tab) 1 tab Q4HP PRN PO MODERATE PAIN (4-6 PAIN SCALE) 12/29/24 09:15 Ondansetron HCl (Zofran) 4 mg Q4HP PRN IV NAUSEA / VOMITING 12/29/24 09:15 Docusate Sodium (Colace Capsule) 100 mg BIDPRN PRN PO FOR CONSTIPATION 12/29/24 09:15 Zinc Sulfate 220 mg DAILY PO 12/29/24 10:00 12/29/24 12:00 Ascorbic Acid (Vitamin C Tablet) 500 mg BID PO 12/29/24 10:00 12/29/24 21:43 Multivitamins (Mvi Tab) 1 tab DAILY PO 12/29/24 10:00 12/29/24 12:00 Acetaminophen (Tylenol Tablet) 650 mg Q6HP PRN PO PAIN SCALE 1-3 OR TEMP>100.4 12/29/24 09:15 12/29/24 14:50 Nitroglycerin (Ntrostat Sublingual) 0.4 mg Q5MINP PRN SL FOR CHEST PAIN 12/29/24 09:15 Morphine Sulfate 2 mg Q30M PRN IV FOR CHEST PAIN 12/29/24 09:15 Piperacillin Sod/ Tazobactam Sod 100 ml @ 25 mls/hr Q8H IV 12/29/24 18:00 12/29/24 17:42 Doxycycline Monohydrate (Vibramycin Tablet) 100 mg BID PO 12/29/24 10:00 12/29/24 21:43 Dextrose 1,000 ml @ 100 mls/hr Q10H IV 12/29/24 09:15 12/29/24 20:43 Amlodipine Besylate (Norvasc Tablet) 10 mg DAILY PO 12/29/24 10:00 12/29/24 12:00 Tamsulosin HCl (Flomax) 0.4 mg QPM PO 12/29/24 18:00 12/29/24 17:42 Metoprolol Tartrate (Lopressor) 5 mg Q4HPRN PRN IV Sustained HR > 110bpm 12/29/24 15:30 Review of Systems Constitutional: denies chills, denies fever, denies malaise Eyes: denies eye pain, denies vision change ENT: denies ear pain, denies headache, denies nasal congestion, denies painful swallowing, denies voice change Cardiovascular: denies chest pain, denies edema, denies orthopnea, denies palpitations, denies paroxysmal nocturnal dyspnea Respiratory: denies cough, denies shortness of breath Gastrointestinal: denies constipation, denies diarrhea, denies nausea, denies vomiting Genitourinary: denies dysuria, denies frequent urination, denies urethral discharge Musculoskeletal: denies back pain, denies joint pain, denies muscle pain Skin: denies bruising, denies itching, denies rash Neurological: denies focal weakness, denies headache, denies sensory changes Psychiatric: denies anxiety, denies depression Endocrine: denies polydipsia, denies polyuria Hematologic/Lymphatic: denies easy bleeding, denies easy bruising, denies enlarged lymph nodes Allergic/Immunologic: denies allergy, denies hives Vital Signs Vital Signs Date Time Temp Pulse Resp B/P (MAP) Pulse Ox O2 Delivery O2 Flow Rate FiO2 12/29/24 19:30 98.2 99 23 129/84 (99) 93 98.2 12/29/24 19:30 Nasal Cannula* 4 36 Physical Exam General Appearance: alert, no distress HEENT: EOMI, PERRLA, normal external inspect of ears, no icterus, no nasal drainage Neck: no carotid bruit, no jugular venous distention (JVD), no lymphadenopathy Chest: normal thorax Respiratory: clear to auscultation, normal air movement Cardiovascular: regular rate and rhythm, no diastolic murmur, no jugular venous distention (JVD), no rub, no systolic murmur Abdominal: soft, no hepatomegaly, no mass, no splenomegaly, no tenderness Genitourinary: grossly normal external Musculoskeletal: no joint tenderness, no swelling Extremities: normal pulses, no calf tenderness, no clubbing, no cyanosis, no edema Skin: no bruising, no jaundice, no rash Neurological: alert, No focal deficit Results Labs Test 12/29/24 20:10 12/29/24 15:56 12/29/24 12:49 12/29/24 06:57 Range/Units POC Glucose 145 H 70-106 mg/dl D-Dimer, Quantitative 1.00 H 0.0-0.49 mg/L FEU Lactic Acid Level 2.7 *H 0.4-2.0 mmol/L Urine Color Colorless Yellow Urine Clarity Turbid H Clear Urine pH 6.0 5.0-9.0 Urine Specific [place] 1.014 1.001-1.035 Urine Protein 3+ H Negative Urine Ketones Negative Negative Urine Blood 1+ H Negative /uL Urine Nitrite Negative Negative Urine Bilirubin Negative Negative Urine Urobilinogen Normal Negative mg/dL Urine Leukocyte Esterase 3+ Negative /uL Urine RBC 3 0 - 3 /hpf Urine WBC Clumps Present None Seen /hpf Urine Microscopic WBC 447 H 0-3 /HPF Urine Squamous Epithelial Cells Few <5 /hpf Urine Bacteria None seen None Seen /hpf Urine Hyaline Casts Few 0 - 2 /lpf Urine Yeast (Budding) Occasional None Seen /hpf Urine Glucose 2+ H Normal mg/dL Test 12/29/24 05:44 Range/Units White Blood Count 16.5 H 4.4-10.8 10^3/uL Red Blood Count 3.07 L 4.5-5.90 10^6/uL Hemoglobin 9.1 L 13.5-17.5 g/dL Hematocrit 28.7 L 41.0-53.0 % Mean Corpuscular Volume 93.7 80.0-100.0 fL Mean Corpuscular Hemoglobin 29.6 28.0-32.0 pg Mean Corpuscular Hemoglobin Concent 31.6 L 32.0-36.0 g/dL Red Cell Distribution Width 18.6 H 11.8-14.3 % Platelet Count 282 140-450 10^3/uL Mean Platelet Volume 11.3 H 6.9-10.8 fL Neutrophils (%) (Auto) 86.9 H 37.0-80.0 % Lymphocytes (%) (Auto) 6.8 L 10.0-50.0 % Monocytes (%) (Auto) 6.0 0.0-12.0 % Eosinophils (%) (Auto) 0.0 0.0-7.0 % Basophils (%) (Auto) 0.3 0.0-2.0 % Neutrophils # (Auto) 14.3 H 1.6-8.6 10 ^3/uL Lymphocytes # (Auto) 1.1 0.4-5.4 10 ^3/uL Monocytes # (Auto) 1.0 0-1.3 10 ^3/uL Eosinophils # (Auto) 0 0-0.8 10 ^3/uL Basophils # (Auto) 0.1 0-0.2 10 ^3/uL Nucleated Red Blood Cells 0.0 % Prothrombin Time 10.3 9.3-11.8 sec Prothrombin Time INR 0.97 0.9-1.15 Activated Partial Thromboplast Time 29.6 24.5-34.5 SEC Sodium Level 137 136-145 mmol/L Potassium Level 5.5 H 3.5-5.1 mmol/L Chloride Level 111 H 98-107 mmol/L Carbon Dioxide Level 16 L 20-31 mmol/L Anion Gap 10 5-15 Blood Urea Nitrogen 63 H 9-23 mg/dL Creatinine 2.14 H 0.700-1.30 mg/dL Glomerular Filtration Rate Calc 38 >90 mL/min BUN/Creatinine Ratio 29.4 H 10.0-20.0 Serum Glucose 179 H 74-106 mg/dL Calcium Level 8.6 L 8.7-10.4 mg/dL Magnesium Level 1.7 1.6-2.6 mg/dL Total Bilirubin < 0.2 L 0.2-1.0 mg/dL Aspartate Amino Transferase (AST) 32 13-40 U/L Alanine Aminotransferase (ALT) 32 7-40 U/L Alkaline Phosphatase 400 H 46-116 U/L Troponin I High Sensitivity 16 </=54 ng/L B-Type Natriuretic Peptide 319.46 0-100 pg/mL Total Protein 6.2 5.7-8.2 g/dL Albumin 3.1 L 3.2-4.8 g/dL Thyroid Stimulating Hormone (TSH) 4.37 0.55-4.78 uIU/mL Plan 1. Sepsis Monitor, IV fluids, IV abx, cardiology consult 2. Hypoglycemia Monitor, hypoglycemia treatment 3. DM II Monitor, wound care consult 4. Pneumonia Monitor, IV abx 5. Bed bound Monitor 6. Acute cystitis w/o hematuria Monitor, IV abx 7. Hx of CVA with residual deficits Monitor 8. CKD3b Monitor, nephrology consult Plan discussed with: Patient, Other RAÚL STEEL NP Dec 29, 2024 09:23
[2024-12-29 11:26] LABS: Lactic Acid w/Reflex 2.1 mmol/L (0.4-2.0)
[2024-12-29] MEDS: SODIUM CHLORIDE 0.9% 1,000 ML IV ONE ×2 (11:40→14:04)
[2024-12-29] MEDS: PIPERACILLIN-TAZOB 3.375GM 100 ML IV ONE (11:40)
[2024-12-29] MEDS: ASCORBIC ACID 500 MG TAB PO SCH (12:00)
[2024-12-29] MEDS: ZINC SULFATE 220mg CAP or TAB PO SCH (12:00)
[2024-12-29] MEDS: DOXYCYCLINE 100 MG TAB/CAP PO SCH (12:00)
[2024-12-29] MEDS: MULTIPLE VITAMIN TAB PO SCH (12:00)
[2024-12-29] MEDS: amLODIPine BESYLATE 5 MG TAB PO SCH (12:00)
[2024-12-29] MEDS: ACETAMINOPHEN 325 MG TAB PO PRN (14:50)
--- NOTE | 2024-12-29 15:14 | DVHINCON2 ---
Date of service: Dec 29, 2024 Referring Physician Sil Vergara NP Reason for Consultation Tachycardia / Diastolic Heart Failure History of Present Illness This is a 44-year old male known outside to our practice who initially presented for altered mental status found to be hypoglycemic with initial serum glucose level of 44 which later improved status post Dextrose administration. It is of note, patient is on Glipizide outpatient which could have attributed to the underlying hypoglycemia. Patient was also found tachycardic and febrile with highest documented temperature of 101.4 in the setting of sepsis from underlying pneumonia with superimposing urinary tract infection as initial WBC count was found elevated at 16.5 with peak lactic acid level of 2.7. Initial creatinine level found elevated at 2.15 with an initial potassium level of 5.5. Initial magnesium level found to be 1.7. TSH level was found normal at 4.37. D-Dimer did reveal elevation at 1.00. Patient does have underlying history of diastolic heart failure which patient underwent Echocardiogram (12/20/2024 [facility]) revealing TDS, EF 65%, stage I diastolic dysfunction, RV size and function is normal. mild LA dilation. Both AV and MV are opening adequately, mild TR with RVSP 26 mmhg. At present, BNP level was found elevated at 319 however chest imaging reveals no evidence for vascular congestion. 12-lead electrocardiogram upon arrival revealed sinus tachycardia at 109 bpm with no acute ischemic changes. Initial HS troponin level was found unremarkable at 16. As the patient presented with tac hycardia and previously known history of diastolic heart failure, Cardiology services have now been involved for cardiac aspects of care. 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 Left Atrium: Left atrium is mildly dilated. No , No MS. Trace MR. Mild TR with RVSP 32 mmHg Echocardiogram: (06/09/2024 [facility]) revealed Left ventricle: Left ventricle is normal-sized with normal systolic function. LVEF was around 55%. There was no gross wall motion abnormality. Right ventricle was normal-sized with normal systolic function. Both atria were normal-sized. Aortic valve: Aortic valve is trileaflet. There was no aortic stenosis/insufficiency. There was no mitral regurgitation. There was trivial tricuspid regurgitation. Pulmonary valve was not well visualized. Right ventricular systolic pressure was around 30 mm Hg. There was no pericardial effusion Past Surgical History Reviewed Family History: FH: diabetes mellitus FHx: stroke Allergies: Coded Allergies: NO KNOWN ALLERGIES (Unverified , 07/19/23) Home Meds Reported Medications Tamsulosin Hcl (Tamsulosin Hcl) 0.4 Mg Cap, 1 CAP PO DAILY for 30 Days, #30 12/31/24 Lisinopril (Lisinopril) 40 Mg Tab, 1 TAB PO DAILY for 30 Days, #30 12/31/24 Amlodipine Besylate (Amlodipine Besylate) 10 Mg Tab, 1 TAB PO DAILY for 30 Days, #30 12/31/24 Metformin Hydrochloride (Metformin Hcl) 500 Mg Tab, 1 TAB PO DAILY for 30 Days, #30 TAKE 1 TABLET BY MOUTH ONCE DAILY WITH BREAKFAST. 12/31/24 Glipizide (Glipizide Er) 5 Mg Tab, 1 TAB PO DAILY for 30 Days, #30 TAKE 1 TABLET BY MOUTH ONCE DAILY WITH BREAKFAST. 12/31/24 Current Medications Current Medications Medications (Trade) Dose Ordered Sig/Wai Route PRN Reason Start Time Stop Time Status Last Admin Acetaminophen/ Hydrocodone Bitart ([place] 5/325MG Tab) 1 tab Q4HP PRN PO MODERATE PAIN (4-6 PAIN SCALE) 12/29/24 09:15 Ondansetron HCl (Zofran) 4 mg Q4HP PRN IV NAUSEA / VOMITING 12/29/24 09:15 Docusate Sodium (Colace Capsule) 100 mg BIDPRN PRN PO FOR CONSTIPATION 12/29/24 09:15 Zinc Sulfate 220 mg DAILY PO 12/29/24 10:00 12/29/24 12:00 Ascorbic Acid (Vitamin C Tablet) 500 mg BID PO 12/29/24 10:00 12/29/24 12:00 Multivitamins (Mvi Tab) 1 tab DAILY PO 12/29/24 10:00 12/29/24 12:00 Acetaminophen (Tylenol Tablet) 650 mg Q6HP PRN PO PAIN SCALE 1-3 OR TEMP>100.4 12/29/24 09:15 12/29/24 14:50 Nitroglycerin (Ntrostat Sublingual) 0.4 mg Q5MINP PRN SL FOR CHEST PAIN 12/29/24 09:15 Morphine Sulfate 2 mg Q30M PRN IV FOR CHEST PAIN 12/29/24 09:15 Piperacillin Sod/ Tazobactam Sod 100 ml @ 25 mls/hr Q8H IV 12/29/24 18:00 Doxycycline Monohydrate (Vibramycin Tablet) 100 mg BID PO 12/29/24 10:00 12/29/24 12:00 Dextrose 1,000 ml @ 100 mls/hr Q10H IV 12/29/24 09:15 Amlodipine Besylate (Norvasc Tablet) 10 mg DAILY PO 12/29/24 10:00 12/29/24 12:00 Tamsulosin HCl (Flomax) 0.4 mg QPM PO 12/29/24 18:00 Review of Systems A 14-point review of systems is negative unless otherwise noted above Vital Signs Vital Signs Date Time Temp Pulse Resp B/P (MAP) Pulse Ox O2 Delivery O2 Flow Rate FiO2 12/29/24 14:50 101.4 12/29/24 14:00 120 36 168/102 (124) 96 12/29/24 08:02 Nasal Cannula* 3 32 Physical Exam Heart: S1 and S2 present Lungs: Scattered rhonchi Abdomen: Benign. Extremities: Distal pulses palpable, 2+. No peripheral edema Labs/Diagnostic Data Labs Test 12/29/24 12:55 12/29/24 12:49 12/29/24 06:57 12/29/24 05:44 Range/Units POC Glucose 99 70-106 mg/dl Lactic Acid Level 2.7 *H 0.4-2.0 mmol/L Urine Color Colorless Yellow Urine Clarity Turbid H Clear Urine pH 6.0 5.0-9.0 Urine Specific [place] 1.014 1.001-1.035 Urine Protein 3+ H Negative Urine Ketones Negative Negative Urine Blood 1+ H Negative /uL Urine Nitrite Negative Negative Urine Bilirubin Negative Negative Urine Urobilinogen Normal Negative mg/dL Urine Leukocyte Esterase 3+ Negative /uL Urine RBC 3 0 - 3 /hpf Urine WBC Clumps Present None Seen /hpf Urine Microscopic WBC 447 H 0-3 /HPF Urine Squamous Epithelial Cells Few <5 /hpf Urine Bacteria None seen None Seen /hpf Urine Hyaline Casts Few 0 - 2 /lpf Urine Yeast (Budding) Occasional None Seen /hpf Urine Glucose 2+ H Normal mg/dL White Blood Count 16.5 H 4.4-10.8 10^3/uL Red Blood Count 3.07 L 4.5-5.90 10^6/uL Hemoglobin 9.1 L 13.5-17.5 g/dL Hematocrit 28.7 L 41.0-53.0 % Mean Corpuscular Volume 93.7 80.0-100.0 fL Mean Corpuscular Hemoglobin 29.6 28.0-32.0 pg Mean Corpuscular Hemoglobin Concent 31.6 L 32.0-36.0 g/dL Red Cell Distribution Width 18.6 H 11.8-14.3 % Platelet Count 282 140-450 10^3/uL Mean Platelet Volume 11.3 H 6.9-10.8 fL Neutrophils (%) (Auto) 86.9 H 37.0-80.0 % Lymphocytes (%) (Auto) 6.8 L 10.0-50.0 % Monocytes (%) (Auto) 6.0 0.0-12.0 % Eosinophils (%) (Auto) 0.0 0.0-7.0 % Basophils (%) (Auto) 0.3 0.0-2.0 % Neutrophils # (Auto) 14.3 H 1.6-8.6 10 ^3/uL Lymphocytes # (Auto) 1.1 0.4-5.4 10 ^3/uL Monocytes # (Auto) 1.0 0-1.3 10 ^3/uL Eosinophils # (Auto) 0 0-0.8 10 ^3/uL Basophils # (Auto) 0.1 0-0.2 10 ^3/uL Nucleated Red Blood Cells 0.0 % Prothrombin Time 10.3 9.3-11.8 sec Prothrombin Time INR 0.97 0.9-1.15 Activated Partial Thromboplast Time 29.6 24.5-34.5 SEC Sodium Level 137 136-145 mmol/L Potassium Level 5.5 H 3.5-5.1 mmol/L Chloride Level 111 H 98-107 mmol/L Carbon Dioxide Level 16 L 20-31 mmol/L Anion Gap 10 5-15 Blood Urea Nitrogen 63 H 9-23 mg/dL Creatinine 2.14 H 0.700-1.30 mg/dL Glomerular Filtration Rate Calc 38 >90 mL/min BUN/Creatinine Ratio 29.4 H 10.0-20.0 Serum Glucose 179 H 74-106 mg/dL Calcium Level 8.6 L 8.7-10.4 mg/dL Magnesium Level 1.7 1.6-2.6 mg/dL Total Bilirubin < 0.2 L 0.2-1.0 mg/dL Aspartate Amino Transferase (AST) 32 13-40 U/L Alanine Aminotransferase (ALT) 32 7-40 U/L Alkaline Phosphatase 400 H 46-116 U/L Troponin I High Sensitivity 16 </=54 ng/L B-Type Natriuretic Peptide 319.46 0-100 pg/mL Total Protein 6.2 5.7-8.2 g/dL Albumin 3.1 L 3.2-4.8 g/dL Plan/Recommendation ASSESSMENT: This is a 44-year old male known outside to our practice who initially presented for altered mental status found to be hypoglycemic with initial serum glucose level of 44 which later improved status post Dextrose administration. It is of note, patient is on Glipizide outpatient which could have attributed to the underlying hypoglycemia. Patient was also found tachycardic and febrile with highest documented temperature of 101.4 in the setting of sepsis from underlying pneumonia with superimposing urinary tract infection as initial WBC count was found elevated at 16.5 with peak lactic acid level of 2.7. Initial creatinine level found elevated at 2.15 with an initial potassium level of 5.5. Initial magnesium level found to be 1.7. TSH level was found normal at 4.37. D-Dimer did reveal elevation at 1.00. Patient does have underlying history of diastolic heart failure which patient underwent Echocardiogram (12/20/2024 [facility]) revealing TDS, EF 65%, stage I diastolic dysfunction, RV size and function is normal. mild LA dilation. Both AV and MV are opening adequately, mild TR with RVSP 26 mmhg. At present, BNP level was found elevated at 319 however chest imaging reveals no evidence for vascular congestion. 12-lead electrocardiogram upon arrival revealed sinus tachycardia at 109 bpm with no acute ischemic changes. Initial HS troponin level was found unremarkable at 16. As the patient presented with tachycardia and previously known history of diastolic heart failure, Cardiology services have now been involved for cardiac aspects of care. 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 Left Atrium: Left atrium is mildly dilated. No , No MS. Trace MR. Mild TR with RVSP 32 mmHg Echocardiogram: (06/09/2024 [facility]) revealed Left ventricle: Left ventricle is normal-sized with normal systolic function. LVEF was around 55%. There was no gross wall motion abnormality. Right ventricle was normal-sized with normal systolic function. Both atria were normal-sized. Aortic valve: Aortic valve is trileaflet. There was no aortic stenosis/insufficiency. There was no mitral r egurgitation. There was trivial tricuspid regurgitation. Pulmonary valve was not well visualized. Right ventricular systolic pressure was around 30 mm Hg. There was no pericardial effusion Echocardiogram: (12/20/2024 [facility]) revealed TDS, EF 65%, stage I diastolic dysfunction, RV size and function is normal. mild LA dilation. Both AV and MV are opening adequately, mild TR with RVSP 26 mmhg. Symptomatic hypoglycemia Sepsis, in the setting of pneumonia/complicated UTI Sinus tachycardia, likely secondary to the above Abnormal D-Dimer, rule out PE/DVT Chronic diastolic heart failure Baseline poor functional status Old history of previous CVA Residual left hemiparesis Chronic kidney disease Diabetes mellitus II Hyperlipidemia Hypertension Hyperkalemia CARDIAC SUGGESTIONS FOR MANAGEMENT: Request for VQ scan Request for BLE Venous Duplex Request for 2D Echocardiogram Fluid volume management per Nephrology secondary to renal status Proceed with close observation for overt signs of fluid overload Proceed with strict intakes, outputs, and daily weights Proceed with close rate and rhythm surveillance Sustain Magnesium level greater than 2.0 Sustain Potassium level greater than 4.0 Follow up renal function and electrolytes Supplemental oxygen as warranted PRN Lopressor (IV) for rate control On IV antibiotic therapy Management of diabetes mellitus/hypoglycemia as per primary team Management of sepsis (pneumonia/UTI) as per primary team Management of chronic kidney disease as per Nephrology Management of co-morbidities per primary team Proceed with close hemodynamic surveillance Proceed with optimized blood pressure control Transfuse to sustain HGB level above 7.0 Management in telemetry Follow up business information consultant recommendations Will proceed to follow from a cardiac perspective Further recommendations per clinical progression All available diagnostic labs, EKG's, and images were personally reviewed Patient's status, findings, and plan of care was reviewed and discussed with supervising physician Dr. Zee, who is in agreement with current plan of care. Plan of care discussed with and agreed upon by patient / primary RN Prognosis: Guarded Thank you for allowing me to participate in the care of this patient. Further recommendations based on patients clinical course and progression, primary attending, and other consultants. Will continue to follow with primary attending. If you have any questions or concerns, please do not hesitate to contact me. A total of 75 minutes was spent reviewing the patient record, examining the patient, making a diagnostic and therapeutic plan, discussing this plan with medical personnel, following up on diagnostic studies and following the patient for clinical stability excluding any and all procedures. At least 50% of this time was spent in direct, [id number] contact. Plan discussed with: Patient (Patient and Primary RN ) MAYCOL GRIFFITH Dec 29, 2024 15:14
--- NOTE | 2024-12-29 16:15 | DVHINCON2 ---
Date of service: Dec 29, [address] Fausitn Reason for Consultation LISANDRO History of Present Illness 44 Y/O M with history of CKD III, DM, HTN, HLD, CVA with residual left sided weakness, bed bound, diastolic CHF, obstructive uropathy presented with altered mental status. patient was found to be hypoglycemic with glucose in low 40s. Other labs significant for Cr: 2.14 mg/dl, baseline cr 1.6 mg/dl on May/2024. K: 5.5 mmol/l, bicarb: 16, lactate 2.7. WBC: 16.5, Hb: 9.1 g/dl. Patient febrile with T max 101.4 , tachycardic with HR in 100s. SBP in 150-160s mmHg. CXR shows hazy lung opacities. Patient was started on broad spectrum IV antibiotics and IVF. Nephrology consulted for LISANDRO. 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 06/24/24 Current Medications Current Medications Medications (Trade) Dose Ordered Sig/Wai Route PRN Reason Start Time Stop Time Status Last Admin Acetaminophen/ Hydrocodone Bitart ([place] 5/325MG Tab) 1 tab Q4HP PRN PO MODERATE PAIN (4-6 PAIN SCALE) 12/29/24 09:15 Ondansetron HCl (Zofran) 4 mg Q4HP PRN IV NAUSEA / VOMITING 12/29/24 09:15 Docusate Sodium (Colace Capsule) 100 mg BIDPRN PRN PO FOR CONSTIPATION 12/29/24 09:15 Zinc Sulfate 220 mg DAILY PO 12/29/24 10:00 12/29/24 12:00 Ascorbic Acid (Vitamin C Tablet) 500 mg BID PO 12/29/24 10:00 12/29/24 12:00 Multivitamins (Mvi Tab) 1 tab DAILY PO 12/29/24 10:00 12/29/24 12:00 Acetaminophen (Tylenol Tablet) 650 mg Q6HP PRN PO PAIN SCALE 1-3 OR TEMP>100.4 12/29/24 09:15 12/29/24 14:50 Nitroglycerin (Ntrostat Sublingual) 0.4 mg Q5MINP PRN SL FOR CHEST PAIN 12/29/24 09:15 Morphine Sulfate 2 mg Q30M PRN IV FOR CHEST PAIN 12/29/24 09:15 Piperacillin Sod/ Tazobactam Sod 100 ml @ 25 mls/hr Q8H IV 12/29/24 18:00 Doxycycline Monohydrate (Vibramycin Tablet) 100 mg BID PO 12/29/24 10:00 12/29/24 12:00 Dextrose 1,000 ml @ 100 mls/hr Q10H IV 12/29/24 09:15 Amlodipine Besylate (Norvasc Tablet) 10 mg DAILY PO 12/29/24 10:00 12/29/24 12:00 Tamsulosin HCl (Flomax) 0.4 mg QPM PO 12/29/24 18:00 Metoprolol Tartrate (Lopressor) 5 mg Q4HPRN PRN IV Sustained HR > 110bpm 12/29/24 15:30 Family History: FH: diabetes mellitus FHx: stroke H&P Exam Vital Signs/I&O Vital Sign Date Time Temp Pulse Resp B/P (MAP) Pulse Ox O2 Delivery O2 Flow Rate FiO2 12/29/24 16:36 99.1 99.1 12/29/24 16:00 99 28 136/76 (96) 93 12/29/24 08:02 Nasal Cannula* 3 32 Physical Exam Gen: NAD HEENT: NC,AT Lungs: rales Cardiac: Tachycardia, no murmur Abd: soft, no tenderness Ext: no edema Labs/Diagnostic Data Labs/Diagnostic Data Laboratory Tests Test 12/29/24 15:56 12/29/24 15:12 12/29/24 12:55 12/29/24 12:49 Range/Units D-Dimer, Quantitative 1.00 H 0.0-0.49 mg/L FEU POC Glucose 100 99 70-106 mg/dl Lactic Acid Level 2.7 *H 0.4-2.0 mmol/L Test 12/29/24 11:43 12/29/24 10:35 12/29/24 10:20 12/29/24 09:21 Range/Units POC Glucose 65 L 75 43 *L 70-106 mg/dl Lactic Acid Level 2.1 *H 0.4-2.0 mmol/L Test 12/29/24 09:20 12/29/24 08:39 2/4/25 07:23 12/29/24 07:02 Range/Units POC Glucose 40 *L 130 H 44 *L 70-106 mg/dl Lactic Acid Level 1.4 0.4-2.0 mmol/L Test 12/29/24 06:57 12/29/24 05:44 Range/Units Urine Color Colorless Yellow Urine Clarity Turbid H Clear Urine pH 6.0 5.0-9.0 Urine Specific [place] 1.014 1.001-1.035 Urine Protein 3+ H Negative Urine Ketones Negative Negative Urine Blood 1+ H Negative /uL Urine Nitrite Negative Negative Urine Bilirubin Negative Negative Urine Urobilinogen Normal Negative mg/dL Urine Leukocyte Esterase 3+ Negative /uL Urine RBC 3 0 - 3 /hpf Urine WBC Clumps Present None Seen /hpf Urine Microscopic WBC 447 H 0-3 /HPF Urine Squamous Epithelial Cells Few <5 /hpf Urine Bacteria None seen None Seen /hpf Urine Hyaline Casts Few 0 - 2 /lpf Urine Yeast (Budding) Occasional None Seen /hpf Urine Glucose 2+ H Normal mg/dL White Blood Count 16.5 H 4.4-10.8 10^3/uL Red Blood Count 3.07 L 4.5-5.90 10^6/uL Hemoglobin 9.1 L 13.5-17.5 g/dL Hematocrit 28.7 L 41.0-53.0 % Mean Corpuscular Volume 93.7 80.0-100.0 fL Mean Corpuscular Hemoglobin 29.6 28.0-32.0 pg Mean Corpuscular Hemoglobin Concent 31.6 L 32.0-36.0 g/dL Red Cell Distribution Width 18.6 H 11.8-14.3 % Platelet Count 282 140-450 10^3/uL Mean Platelet Volume 11.3 H 6.9-10.8 fL Neutrophils (%) (Auto) 86.9 H 37.0-80.0 % Lymphocytes (%) (Auto) 6.8 L 10.0-50.0 % Monocytes (%) (Auto) 6.0 0.0-12.0 % Eosinophils (%) (Auto) 0.0 0.0-7.0 % Basophils (%) (Auto) 0.3 0.0-2.0 % Neutrophils # (Auto) 14.3 H 1.6-8.6 10 ^3/uL Lymphocytes # (Auto) 1.1 0.4-5.4 10 ^3/uL Monocytes # (Auto) 1.0 0-1.3 10 ^3/uL Eosinophils # (Auto) 0 0-0.8 10 ^3/uL Basophils # (Auto) 0.1 0-0.2 10 ^3/uL Nucleated Red Blood Cells 0.0 % Prothrombin Time 10.3 9.3-11.8 sec Prothrombin Time INR 0.97 0.9-1.15 Activated Partial Thromboplast Time 29.6 24.5-34.5 SEC Sodium Level 137 136-145 mmol/L Potassium Level 5.5 H 3.5-5.1 mmol/L Chloride Level 111 H 98-107 mmol/L Carbon Dioxide Level 16 L 20-31 mmol/L Anion Gap 10 5-15 Blood Urea Nitrogen 63 H 9-23 mg/dL Creatinine 2.14 H 0.700-1.30 mg/dL Glomerular Filtration Rate Calc 38 >90 mL/min BUN/Creatinine Ratio 29.4 H 10.0-20.0 Serum Glucose 179 H 74-106 mg/dL Lactic Acid Level 2.1 *H 0.4-2.0 mmol/L Calcium Level 8.6 L 8.7-10.4 mg/dL Magnesium Level 1.7 1.6-2.6 mg/dL Total Bilirubin < 0.2 L 0.2-1.0 mg/dL Aspartate Amino Transferase (AST) 32 13-40 U/L Alanine Aminotransferase (ALT) 32 7-40 U/L Alkaline Phosphatase 400 H 46-116 U/L Troponin I High Sensitivity 16 </=54 ng/L B-Type Natriuretic Peptide 319.46 0-100 pg/mL Total Protein 6.2 5.7-8.2 g/dL Albumin 3.1 L 3.2-4.8 g/dL Assessment Assessment: LISANDRO, pre-renal + sepsis CKD III. (Baseline Cr 1.6 mg/dl on May/2024) Sepsis secondary to pneumonia Hypoglycemia lactic acidosis Hyperkalemia DM HTN HLD h/o CVA with residual left sided weakness bed bound Chronic diastolic CHF Plan: Continue IVF Good UO Continue IV antibiotics Lokelma 10 g PO x1 daily BMP, and Mg continue Amlodipine 10 mg PO daily strict I&Os Plan discussed with: Patient EBER ABBOTT MD Dec 29, 2024 16:14
[2024-12-29] MEDS: SODIUM ZIRCONIUM CYCL 10 GM PAK PO ONE (16:53)
[2024-12-29] MEDS: PIPERACILLIN-TAZOB 3.375GM 100 ML IV SCH (17:42)
[2024-12-29] MEDS: TAMSULOSIN HYDROCHLORIDE 0.4 MG CAP PO SCH (17:42)
[2024-12-29] MEDS: D5W 5% 1,000 ML IV SCH (18:14)
[2024-12-29 19:30] VITALS: PULSE 99; RESP 23; O2SAT 93
[2024-12-29 21:03] VITALS: BP 129/79; PULSE 99; RESP 23; TEMP 98.5; O2SAT 93
[2024-12-29 21:08] VITALS: PULSE 102
[2024-12-29 23:08] VITALS: BP 129/79; PULSE 99; RESP 23; TEMP 98.5; O2SAT 96
[2024-12-30] VITALS (15 sets, daily range): BP systolic 131–169; BP diastolic 73–96; PULSE 75–118; RESP 15–28; TEMP 97.8–100.3; O2SAT 91–100
[2024-12-30 05:34] LABS: Basophils # (auto) 0.1 10 ^3/uL (0-0.2); Basophils % (auto) 0.5 % (0.0-2.0); Eosinophils # (auto) 0 10 ^3/uL (0-0.8); Hemoglobin 8.5 g/dL (13.5-17.5); Lymphocytes # (auto) 1.5 10 ^3/uL (0.4-5.4); Lymphocytes % (auto) 7.3 % (10.0-50.0); Mean Corpuscular Hemoglobin 29.9 pg (28.0-32.0); Mean Corpuscular Hgb Conc. 32.6 g/dL (32.0-36.0); Mean Corpuscular Volume 91.6 fL (80.0-100.0); Neutrophils % (auto) 87.2 % (37.0-80.0); Platelet Count (auto) 210 10^3/uL (140-450); Red Blood Cells 2.84 10^6/uL (4.5-5.90); Red Cell Distribution Width 18.1 % (11.8-14.3); White Blood Cell 20.7 10^3/uL (4.4-10.8)
[2024-12-30 05:46] LABS: Alanine Aminotransferase 31 U/L (7-40); Anion Gap 9 (5-15); Aspartate Aminotransferase 40 U/L (13-40); BUN/Creatinine Ratio 28.2 (10.0-20.0); Chloride 107 mmol/L (98-107); Potassium 4.5 mmol/L (3.5-5.1)
[2024-12-30 05:50] LABS: Albumin 2.9 g/dL (3.2-4.8); Alkaline Phosphatase 322 U/L (46-116); Bilirubin, Total 0.2 mg/dL (0.2-1.0); Blood Urea Nitrogen 60 mg/dL (9-23); Carbon Dioxide 16 mmol/L (20-31); Glucose 122 mg/dL (74-106); Sodium 132 mmol/L (136-145); Total Protein 5.5 g/dL (5.7-8.2)
[2024-12-30] MEDS: METOPROLOL TARTRATE 1MG/1ML-5ML VIAL IV PRN (08:57)
[2024-12-30] MEDS ORDERED: DEXTROSE (50%) 50ML SYRG IV PRN (09:45)
[2024-12-30] MEDS: ACCU-CHEK COMFORT CURVE STRIP VI SCH ×3 (10:00→16:00)
--- NOTE | 2024-12-30 11:47 | DVH ---
BILATERAL LOWER EXTREMITY VENOUS DOPPLER CLINICAL HISTORY: rule out dvt Technique: Duplex Doppler evaluation of the deep venous systems of both lower extremities from the co mmon femoral veins to the popliteal veins including color Doppler and spectral/pulsed waveform analys is was performed. COMPARISON: None FINDINGS: The right and left common femoral, superficial femoral, popliteal, posterior tibial veins and trifur cations appear patent with normal augmentation, phasicity, compressibility and color-flow. There is s oft tissue edema in the bilateral lower extremities. IMPRESSION: 1. There is no sonographic evidence for DVT in the lower extremities. HS:Y
[2024-12-30] MEDS: InsuLIN REG 1unit/0.01ml Soln (100units/ml) SC SCH (12:24)
[2024-12-30] MEDS: LISINOPRIL 20 MG TAB PO SCH (13:24)
[2024-12-30] MEDS: ALBUTEROL SULF 2.5 MG/0.5ML(0.5%) NEB SOLN NEB SCH (13:25)
[2024-12-30] MEDS: IPRATROPIUM BROM 0.5 MG/2.5ML INH SOL NEB SCH (13:25)
[2024-12-30] MEDS: FUROSEMIDE 20 MG TAB PO SCH (13:25)
--- NOTE | 2024-12-30 16:19 | DVHPN2 ---
Progress Note - Dictate Date Seen: Dec 30, 2024 Medical Necessity Reason Pt with a Central, PICC or Fol: No Subjective tachypnea however he is denying any worsening SOB vital signs Vital Sign Date Time Temp Pulse Resp B/P (MAP) Pulse Ox O2 Delivery O2 Flow Rate FiO2 12/30/24 13:34 104 26 96 12/30/24 13:25 Nasal Cannula 4.0 12/30/24 13:25 151/88 12/30/24 13:25 36 12/30/24 13:00 98.0 98.0 Total Intake and Output 12/29/24 12/29/24 12/30/24 15:00 23:00 07:00 Intake Total 875 ml 1525 ml 1000 ml Output Total 600 ml 500 ml Balance 875 ml 925 ml 500 ml medications Current Medications Medications Dose Ordered Sig/Wai Route Start Time Stop Time Status Last Admin Dose Admin Acetaminophen/ Hydrocodone Bitart 1 tab Q4HP PRN PO 12/29/24 09:15 Ondansetron HCl 4 mg Q4HP PRN IV 12/29/24 09:15 Docusate Sodium 100 mg BIDPRN PRN PO 12/29/24 09:15 Zinc Sulfate 220 mg DAILY PO 12/29/24 10:00 12/30/24 10:33 220 MG Ascorbic Acid 500 mg BID PO 12/29/24 10:00 12/30/24 10:30 500 MG Multivitamins 1 tab DAILY PO 12/29/24 10:00 12/30/24 10:32 1 TAB Acetaminophen 650 mg Q6HP PRN PO 12/29/24 09:15 12/30/24 08:58 650 MG Nitroglycerin 0.4 mg Q5MINP PRN SL 12/29/24 09:15 Morphine Sulfate 2 mg Q30M PRN IV 12/29/24 09:15 Piperacillin Sod/ Tazobactam Sod 100 ml @ 25 mls/hr Q8H IV 12/29/24 18:00 12/30/24 10:33 25 MLS/HR Doxycycline Monohydrate 100 mg BID PO 12/29/24 10:00 12/30/24 10:30 100 MG Amlodipine Besylate 10 mg DAILY PO 12/29/24 10:00 12/30/24 10:32 10 MG Tamsulosin HCl 0.4 mg QPM PO 12/29/24 18:00 12/29/24 17:42 0.4 MG Metoprolol Tartrate 5 mg Q4HPRN PRN IV 12/29/24 15:30 12/30/24 08:57 5 MG Insulin Human Regular IQ4HR SC 12/30/24 12:00 12/30/24 12:24 2 UNITS Dextrose 50 ml UD PRN IV 12/30/24 09:45 Albuterol 2.5 mg Q4HR NEB 12/30/24 14:00 12/30/24 13:25 2.5 MG Ipratropium [place] 0.5 mg Q4HR NEB 12/30/24 14:00 12/30/24 13:25 0.5 MG Lisinopril 20 mg DAILY PO 12/30/24 12:45 12/30/24 13:24 20 MG Furosemide 40 mg DAILY PO 12/30/24 12:45 12/30/24 13:25 40 MG Diagnostic Test (Pha) 1 strip IQ4HR 12/30/24 16:00 objective Gen: NAD HEENT: NC,AT Lungs: rales Cardiac: Tachycardia, no murmur Abd: soft, no tenderness Ext: no edema + [facility] laboratory and microbiology Laboratory Tests 12/30/24 04:50 Test 12/30/24 04:50 Range/Units Serum Glucose 122 H 74-106 mg/dL Assessment/Plan Assessment: non-oliguric LISANDRO, pre-renal + sepsis CKD III. (Baseline Cr 1.6 mg/dl on May/2024) Acute hypoxic respiratory failure on supplemental oxygen Sepsis secondary to pneumonia Acute on Chronic diastolic CHF Hypoglycemia lactic acidosis Hyperkalemia DM HTN HLD h/o CVA with residual left sided weakness bed bound Plan: IVF was discontinued Lasix 60 mg IV x1 Obtain CXR Obtain ABG Continue IV antibiotics Pulmonary consult daily BMP, and Mg continue Amlodipine 10 mg PO daily strict I&Os Plan discussed with: Patient EBER ABBOTT MD Dec 30, 2024 16:19
[2024-12-30] MEDS: FUROSEMIDE 100 MG/10ML VIAL IV ONE (16:30)
--- NOTE | 2024-12-30 16:40 | DVH ---
EXAM: XR Chest, 1 View CLINICAL INDICATION: tachypnea. evaluate for pulmonary congestion TECHNIQUE: Frontal view of the chest. COMPARISON: XY CHEST PORTABLE on DOS: 12/29/24, XY CHEST PORTABLE on DOS: 06/08/24 FINDINGS: LUNGS AND PLEURAL SPACES: Pulmonary congestion and edema. Pneumonia cannot be excluded. No pneumot horax. HEART: Unremarkable. No cardiomegaly. MEDIASTINUM: Unremarkable. Normal mediastinal contour. BONES/JOINTS: Unremarkable. No acute fracture. OTHER FINDINGS: . . . .. IMPRESSION: Pulmonary congestion and edema. Pneumonia cannot be excluded.
--- NOTE | 2024-12-30 19:32 | DVHPN2 ---
Progress Note - Dictate Date Seen: Dec 30, 2024 Medical Necessity Reason Pt with a Central, PICC or Fol: No vital signs Vital Sign Date Time Temp Pulse Resp B/P (MAP) Pulse Ox O2 Delivery O2 Flow Rate FiO2 12/30/24 18:34 92 26 98 12/30/24 17:08 98.0 154/76 (102) 98.0 12/30/24 13:25 Nasal Cannula 4.0 12/30/24 13:25 36 Total Intake and Output 12/29/24 12/29/24 12/30/24 15:00 23:00 07:00 Intake Total 875 ml 1525 ml 1000 ml Output Total 600 ml 500 ml Balance 875 ml 925 ml 500 ml medications Current Medications Medications Dose Ordered Sig/Wai Route Start Time Stop Time Status Last Admin Dose Admin Acetaminophen/ Hydrocodone Bitart 1 tab Q4HP PRN PO 12/29/24 09:15 Ondansetron HCl 4 mg Q4HP PRN IV 12/29/24 09:15 Docusate Sodium 100 mg BIDPRN PRN PO 12/29/24 09:15 Zinc Sulfate 220 mg DAILY PO 12/29/24 10:00 12/30/24 10:33 220 MG Ascorbic Acid 500 mg BID PO 12/29/24 10:00 12/30/24 10:30 500 MG Multivitamins 1 tab DAILY PO 12/29/24 10:00 12/30/24 10:32 1 TAB Acetaminophen 650 mg Q6HP PRN PO 12/29/24 09:15 12/30/24 08:58 650 MG Nitroglycerin 0.4 mg Q5MINP PRN SL 12/29/24 09:15 Morphine Sulfate 2 mg Q30M PRN IV 12/29/24 09:15 Piperacillin Sod/ Tazobactam Sod 100 ml @ 25 mls/hr Q8H IV 12/29/24 18:00 12/30/24 10:33 25 MLS/HR Doxycycline Monohydrate 100 mg BID PO 12/29/24 10:00 12/30/24 10:30 100 MG Amlodipine Besylate 10 mg DAILY PO 12/29/24 10:00 12/30/24 10:32 10 MG Tamsulosin HCl 0.4 mg QPM PO 12/29/24 18:00 12/30/24 17:04 0.4 MG Metoprolol Tartrate 5 mg Q4HPRN PRN IV 12/29/24 15:30 12/30/24 08:57 5 MG Insulin Human Regular IQ4HR SC 12/30/24 12:00 12/30/24 17:04 2 UNITS Dextrose 50 ml UD PRN IV 12/30/24 09:45 Albuterol 2.5 mg Q4HR NEB 12/30/24 14:00 12/30/24 18:32 2.5 MG Ipratropium [place] 0.5 mg Q4HR NEB 12/30/24 14:00 12/30/24 18:32 0.5 MG Lisinopril 20 mg DAILY PO 12/30/24 12:45 12/30/24 13:24 20 MG Furosemide 40 mg DAILY PO 12/30/24 12:45 12/30/24 13:25 40 MG Diagnostic Test (Pha) 1 strip IQ4HR 12/30/24 16:00 12/30/24 16:00 1 STRIP objective General Appearance: alert, no distress HEENT: EOMI, PERRLA, normal external inspect of ears, no icterus, no nasal drainage Neck: no carotid bruit, no jugular venous distention (JVD), no lymphadenopathy Chest: normal thorax Respiratory: clear to auscultation, normal air movement Cardiovascular: regular rate and rhythm, no diastolic murmur, no jugular venous distention (JVD), no rub, no systolic murmur Abdominal: soft, no hepatomegaly, no mass, no splenomegaly, no tenderness Genitourinary: grossly normal external Musculoskeletal: no joint tenderness, no swelling Extremities: normal pulses, no calf tenderness, no clubbing, no cyanosis, no edema Skin: no bruising, no jaundice, no rash Neurological: alert, No focal deficit laboratory and microbiology Laboratory Tests 12/30/24 04:50 Test 12/30/24 04:50 Range/Units Serum Glucose 122 H 74-106 mg/dL Problem List 1. Sepsis Monitor, IV fluids, IV abx, cardiology consult 2. Hypoglycemia Monitor, hypoglycemia treatment 3. DM II Monitor, wound care consult 4. Pneumonia Monitor, IV abx 5. Bed bound Monitor 6. Acute cystitis w/o hematuria Monitor, IV abx 7. Hx of CVA with residual deficits Monitor 8. CKD3b Monitor, nephrology consult Assessment/Plan Subjective: Patient is awake and alert. Objective: Patient appears to be having some respiratory distress. Med-neb treatments have been ordered, as well as diuretics. I discussed the plan of care with nephrology. Pulmonary has been consulted. Hypoglycemia has resolved. Plan: Continue current treatment. Continue antibiotics for sepsis and pneumonia. Continue med-neb treatments and pulmonary consult. Plan discussed with: Patient, Other RAÚL STEEL NP Dec 30, 2024 19:32
--- NOTE | 2024-12-30 22:23 | DVHINCON2 ---
Date of service: Dec 30, 2024 Referring Physician Sil Vergara NP Reason for Consultation Acute hypoxic respiratory failure and pneumonia History of Present Illness A 44-year-old man with past medical history of CKD stage III, diabetes mellitus, hypertension, hyperlipidemia, CVA with residual left sided weakness, diastolic CHF, and obstructive uropathy, bedbound status, who was brought to ED on 12/29/24 with c/o ALOC. Family reported patient had been behaving differently for a few hours. Patient was found to be hypoglycemic with glucose in low 40s. Initial labs significant for Cr: 2.14 mg/dl, baseline cr 1.6 mg/dl on May/2024. K: 5.5 mmol/l, bicarb: 16, lactate 2.7. WBC: 16.5, Hb: 9.1 g/dl. Patient was febrile with T max 101.4 , tachycardic with HR in 100s. SBP in 150-160s mmHg. CXR demonstrated hazy lung opacities. Patient was started on broad spectrum IV antibiotics and IVF, admitted for further care. Pulmonary consultation is requested for evaluation and management of acute hypoxic respiratory failure and pneumonia. Review of Systems: 14-point review of systems negative unless otherwise noted above. Past Medical History: CKD stage III, diabetes mellitus, hypertension, hyperlipidemia, CVA with residual left sided weakness, diastolic CHF, and obstructive uropathy, bedbound status, Echocardiogram: (05/05/2024 [facility]) revealed LV EF is 60-65%, stage I diastolic dysfunction, RV size and function is normal. Left Atrium: Left atrium is mildly dilated. No , No MS. Trace MR. Mild TR with RVSP 32 mmHg Echocardiogram: (06/09/2024 [facility]) revealed Left ventricle: Left ventricle is normal-sized with normal systolic function. LVEF was around 55%. There was no gross wall motion abnormality. Right ventricle was normal-sized with normal systolic function. Both atria were normal-sized. Aortic valve: Aortic valve is trileaflet. There was no aortic stenosis/insufficiency. There was no mitral regurgitation. There was trivial tricuspid regurgitation. Pulmonary valve was not well visualized. Right ventricular systolic pressure was around 30 mm Hg. There was no pericardial effusion Past Surgical History: Denies Medications: Reviewed. Allergies: No known drug allergies. Family History: Diabetes mellitus and stroke. Social History: Nonsmoker. No alcohol or illicit drug use. Family History: FH: diabetes mellitus FHx: stroke Allergies: Coded Allergies: NO KNOWN ALLERGIES (Unverified , 07/19/23) Home Meds Reported Medications Tamsulosin Hcl (Tamsulosin Hcl) 0.4 Mg Cap, 1 CAP PO DAILY for 30 Days, #30 12/31/24 Lisinopril (Lisinopril) 40 Mg Tab, 1 TAB PO DAILY for 30 Days, #30 12/31/24 Amlodipine Besylate (Amlodipine Besylate) 10 Mg Tab, 1 TAB PO DAILY for 30 Days, #30 12/31/24 Metformin Hydrochloride (Metformin Hcl) 500 Mg Tab, 1 TAB PO DAILY for 30 Days, #30 TAKE 1 TABLET BY MOUTH ONCE DAILY WITH BREAKFAST. 12/31/24 Glipizide (Glipizide Er) 5 Mg Tab, 1 TAB PO DAILY for 30 Days, #30 TAKE 1 TABLET BY MOUTH ONCE DAILY WITH BREAKFAST. 12/31/24 Current Medications Current Medications Medications (Trade) Dose Ordered Sig/Wai Route PRN Reason Start Time Stop Time Status Last Admin Diagnostic Test (Pha) (Accu-Chek Comfort Curve T) 1 strip Q4HR 12/30/24 10:00 12/30/24 10:44 DC 12/30/24 10:00 Insulin Human Regular (InsuLIN R) IQ4HR SC 12/30/24 12:00 12/30/24 17:04 Dextrose 50 ml UD PRN IV Blood Sugar LESS THAN 60 12/30/24 09:45 Diagnostic Test (Pha) (Accu-Chek Comfort Curve T) 1 strip Q4HR 12/30/24 12:00 12/30/24 14:51 DC 12/30/24 12:10 Albuterol (Ventolin Medneb) 2.5 mg Q4HR NEB 12/30/24 14:00 12/30/24 18:32 Ipratropium [place] (Atrovent Medneb) 0.5 mg Q4HR NEB 12/30/24 14:00 12/30/24 18:32 Lisinopril (Zestril Tablet) 20 mg DAILY PO 12/30/24 12:45 12/30/24 13:24 Furosemide (Lasix Tablet) 40 mg DAILY PO 12/30/24 12:45 12/30/24 13:25 Diagnostic Test (Pha) (Accu-Chek Comfort Curve T) 1 strip IQ4HR 12/30/24 16:00 12/30/24 20:30 Vital Signs Vital Signs Date Time Temp Pulse Resp B/P (MAP) Pulse Ox O2 Delivery O2 Flow Rate FiO2 12/30/24 21:00 98.0 105 20 137/73 (94) 99 98.0 12/30/24 13:25 Nasal Cannula 4.0 12/30/24 13:25 36 Physical Exam Gen.: Patient lying in bed in no apparent distress. On supplemental oxygen. Head: Normocephalic, atraumatic. Eyes: EOMI/PERRLA. Ears: Normal hearing. Normal anatomy. Neck/trachea: Trachea midline, supple. Nose: Normal external anatomy. Mouth: Moist mucous membranes. Chest: Decreased air entry bilaterally. No wheezing or rhonchi. Cardiovascular: Positive S1, positive S2. Regular rate and rhythm. Abdomen: Positive bowel sounds in all 4 quadrants. Soft, non-tender, non- distended. : Deferred. Rectal: Deferred. Skin: Warm, dry. Intact. Extremities: 2+ radial pulses bilaterally. No lower extremity edema. Neuro: Awake, alert, oriented x3. No gross motor or sensory deficits. Cranial nerves II through XII intact. Gait not assessed. Labs/Diagnostic Data Labs Test 12/30/24 20:29 12/30/24 04:50 12/29/24 15:56 12/29/24 12:49 Range/Units POC Glucose 68 L 70-106 mg/dl White Blood Count 20.7 #H 4.4-10.8 10^3/uL Red Blood Count 2.84 L 4.5-5.90 10^6/uL Hemoglobin 8.5 L 13.5-17.5 g/dL Hematocrit 26.0 L 41.0-53.0 % Mean Corpuscular Volume 91.6 80.0-100.0 fL Mean Corpuscular Hemoglobin 29.9 28.0-32.0 pg Mean Corpuscular Hemoglobin Concent 32.6 32.0-36.0 g/dL Red Cell Distribution Width 18.1 H 11.8-14.3 % Platelet Count 210 140-450 10^3/uL Mean Platelet Volume 11.6 H 6.9-10.8 fL Neutrophils (%) (Auto) 87.2 H 37.0-80.0 % Lymphocytes (%) (Auto) 7.3 L 10.0-50.0 % Monocytes (%) (Auto) 5.0 0.0-12.0 % Eosinophils (%) (Auto) 0.0 0.0-7.0 % Basophils (%) (Auto) 0.5 0.0-2.0 % Neutrophils # (Auto) 18.0 H 1.6-8.6 10 ^3/uL Lymphocytes # (Auto) 1.5 0.4-5.4 10 ^3/uL Monocytes # (Auto) 1.0 0-1.3 10 ^3/uL Eosinophils # (Auto) 0 0-0.8 10 ^3/uL Basophils # (Auto) 0.1 0-0.2 10 ^3/uL Nucleated Red Blood Cells 0.0 % Sodium Level 132 #L 136-145 mmol/L Potassium Level 4.5 3.5-5.1 mmol/L Chloride Level 107 98-107 mmol/L Carbon Dioxide Level 16 L 20-31 mmol/L Anion Gap 9 5-15 Blood Urea Nitrogen 60 H 9-23 mg/dL Creatinine 2.13 H 0.700-1.30 mg/dL Glomerular Filtration Rate Calc 38 >90 mL/min BUN/Creatinine Ratio 28.2 H 10.0-20.0 Serum Glucose 122 H 74-106 mg/dL Calcium Level 8.0 L 8.7-10.4 mg/dL Total Bilirubin 0.2 0.2-1.0 mg/dL Aspartate Amino Transferase (AST) 40 13-40 U/L Alanine Aminotransferase (ALT) 31 7-40 U/L Alkaline Phosphatase 322 H 46-116 U/L Total Protein 5.5 L 5.7-8.2 g/dL Albumin 2.9 L 3.2-4.8 g/dL D-Dimer, Quantitative 1.00 H 0.0-0.49 mg/L FEU Lactic Acid Level 2.7 *H 0.4-2.0 mmol/L Test 12/29/24 06:57 12/29/24 05:44 Range/Units Urine Color Colorless Yellow Urine Clarity Turbid H Clear Urine pH 6.0 5.0-9.0 Urine Specific [place] 1.014 1.001-1.035 Urine Protein 3+ H Negative Urine Ketones Negative Negative Urine Blood 1+ H Negative /uL Urine Nitrite Negative Negative Urine Bilirubin Negative Negative Urine Urobilinogen Normal Negative mg/dL Urine Leukocyte Esterase 3+ Negative /uL Urine RBC 3 0 - 3 /hpf Urine WBC Clumps Present None Seen /hpf Urine Microscopic WBC 447 H 0-3 /HPF Urine Squamous Epithelial Cells Few <5 /hpf Urine Bacteria None seen None Seen /hpf Urine Hyaline Casts Few 0 - 2 /lpf Urine Yeast (Budding) Occasional None Seen /hpf Urine Glucose 2+ H Normal mg/dL Prothrombin Time 10.3 9.3-11.8 sec Prothrombin Time INR 0.97 0.9-1.15 Activated Partial Thromboplast Time 29.6 24.5-34.5 SEC Magnesium Level 1.7 1.6-2.6 mg/dL Troponin I High Sensitivity 16 </=54 ng/L B-Type Natriuretic Peptide 319.46 0-100 pg/mL Thyroid Stimulating Hormone (TSH) 4.37 0.55-4.78 uIU/mL Microbiology Date/Time Source Procedure Growth Status 12/29/24 21:31 Nose MRSA Screen - Final Complete 12/29/24 09:50 Blood Blood Culture - Preliminary NO GROWTH AFTER 24 HOURS OF INCUBATION. Resulted 12/29/24 06:57 Voided Urine Urine Culture - Preliminary Resulted Assessment Impression: Acute hypoxic respiratory failure Dependence on supplemental oxygen Sepsis DM type II w/ hypoglycemia Urinary tract infection CVA with left-sided deficits Pneumonia, likely gram negative Cachexia, BMI 13.9 Plan: Supplemental oxygen 4 LPM NC Titrate to keep O2 sats above 92%. Taper O2 as tolerated. CXR reviewed: Pulmonary congestion and edema, pneumonia. No pneumothorax. Head of bed elevation Aspiration precautions. NTS Robinul 0.2 mg IVP x1 given Continue bronchodilators. Continue antibiotics Follow up cultures Accu-Cheks for glycemic monitoring Diurese to euvolemia w/ Lasix Monitor renal function. Monitor electrolytes. Supplement as necessary. Monitor ins and outs. DVT prophylaxis. Prognosis: Poor given patient's multiple co-morbidities. Rest of plan per hospitalist and other consultants. Thank you, ANITHA Vergara, for allowing me to participate in this patient's care. Further recommendations will depend on the patient's clinical course. Please do not hesitate to contact me if you have any questions or concerns. This medical document was created using an electronic medical record system with Dragon computerized dictation system. Although these documentations are being carefully reviewed, there may still be some phonetic and typographical changes. The errors are purely typographical, due to imperfection on the software ERUCES, and do not reflect any compromise in the patient's medical care. Plan discussed with: Patient, Other (CARMEN Gamez/ANITHA Vergara/) EDGARDO CULLEN MD Dec 30, 2024 22:23
[2024-12-31] VITALS (21 sets, daily range): BP systolic 100–141; BP diastolic 58–85; PULSE 75–107; RESP 18–26; TEMP 97.1–98.3; O2SAT 96–100
--- NOTE | 2024-12-31 06:33 | DVHPN2 ---
Progress Note - Dictate Date Seen: Dec 31, 2024 Medical Necessity Reason Pt with a Central, PICC or Fol: No Subjective Seen and examined at the bedside within telemetry. Maintaining sinus rhythm upon telemetry review. Hemodynamics remain stable. Chart reviewed. vital signs Vital Sign Date Time Temp Pulse Resp B/P (MAP) Pulse Ox O2 Delivery O2 Flow Rate FiO2 12/31/24 01:56 92 26 97 12/31/24 01:23 97.8 141/72 (95) 97.8 12/30/24 20:00 Nasal Cannula* 4 36 Total Intake and Output 12/30/24 12/30/24 12/31/24 15:00 23:00 07:00 Intake Total 755 ml 200 ml Output Total 800 ml 1300 ml Balance -45 ml -1100 ml medications Current Medications Medications Dose Ordered Sig/Wai Route Start Time Stop Time Status Last Admin Dose Admin Acetaminophen/ Hydrocodone Bitart 1 tab Q4HP PRN PO 12/29/24 09:15 Ondansetron HCl 4 mg Q4HP PRN IV 12/29/24 09:15 Docusate Sodium 100 mg BIDPRN PRN PO 12/29/24 09:15 Zinc Sulfate 220 mg DAILY PO 12/29/24 10:00 12/30/24 10:33 220 MG Ascorbic Acid 500 mg BID PO 12/29/24 10:00 12/30/24 21:46 500 MG Multivitamins 1 tab DAILY PO 12/29/24 10:00 12/30/24 10:32 1 TAB Acetaminophen 650 mg Q6HP PRN PO 12/29/24 09:15 12/30/24 08:58 650 MG Nitroglycerin 0.4 mg Q5MINP PRN SL 12/29/24 09:15 Morphine Sulfate 2 mg Q30M PRN IV 12/29/24 09:15 Doxycycline Monohydrate 100 mg BID PO 12/29/24 10:00 12/30/24 21:46 100 MG Amlodipine Besylate 10 mg DAILY PO 12/29/24 10:00 12/30/24 10:32 10 MG Tamsulosin HCl 0.4 mg QPM PO 12/29/24 18:00 12/30/24 17:04 0.4 MG Metoprolol Tartrate 5 mg Q4HPRN PRN IV 12/29/24 15:30 12/30/24 08:57 5 MG Insulin Human Regular IQ4HR SC 12/30/24 12:00 12/30/24 17:04 2 UNITS Dextrose 50 ml UD PRN IV 12/30/24 09:45 Albuterol 2.5 mg Q4HR NEB 12/30/24 14:00 12/31/24 01:52 2.5 MG Ipratropium [place] 0.5 mg Q4HR NEB 12/30/24 14:00 12/31/24 01:52 0.5 MG Lisinopril 20 mg DAILY PO 12/30/24 12:45 12/30/24 13:24 20 MG Furosemide 40 mg DAILY PO 12/30/24 12:45 12/30/24 13:25 40 MG Diagnostic Test (Pha) 1 strip IQ4HR 12/30/24 16:00 12/31/24 04:20 1 STRIP Piperacillin Sod/ Tazobactam Sod 100 ml @ 25 mls/hr Q8H IV 12/31/24 12:00 laboratory and microbiology Laboratory Tests 12/30/24 04:50 Test 12/30/24 04:50 Range/Units Serum Glucose 122 H 74-106 mg/dL Assessment/Plan ASSESSMENT: This is a 44-year old male known outside to our practice who initially presented for altered mental status found to be hypoglycemic with initial serum glucose level of 44 which later improved status post Dextrose administration. It is of note, patient is on Glipizide outpatient which could have attributed to the underlying hypoglycemia. Patient was also found tachycardic and febrile with highest documented temperature of 101.4 in the setting of sepsis from underlying pneumonia with superimposing urinary tract infection as initial WBC count was found elevated at 16.5 with peak lactic acid level of 2.7. Initial creatinine level found elevated at 2.15 with an initial potassium level of 5.5. Initial magnesium level found to be 1.7. TSH level was found normal at 4.37. D-Dimer did reveal elevation at 1.00. Patient does have underlying history of diastolic heart failure which patient underwent Echocardiogram (12/20/2024 [facility]) revealing TDS, EF 65%, stage I diastolic dysfunction, RV size and function is normal. mild LA dilation. Both AV and MV are opening adequately, mild TR with RVSP 26 mmhg. At present, BNP level was found elevated at 319 however chest imaging reveals no evidence for vascular congestion. 12-lead electrocardiogram upon arrival revealed sinus tachycardia at 109 bpm with no acute ischemic changes. Initial HS troponin level was found unremarkable at 16. As the patient presented with tachycardia and previously known history of diastolic heart failure, Cardiology services have now been involved for cardiac aspects of care. Past medical history includes previous cerebral vascular accident with residual left sided hemiparesis, baseline poor functional status and bed bound, chronic kidney disease, obstructive uropathy status post cystoscopy with urethral dilation and dorsal slit (04/2024) in the setting of phimosis, chronic diastolic heart failure, urinary tract infections, diabetes mellitus II, hyperlipidemia, hypertension, hydronephrosis, and anemia Echocardiogram: (05/05/2024 [facility]) revealed LV EF is 60-65%, stage I diastolic dysfunction, RV size and function is normal. Left Atrium: Left atrium is mildly dilated. No , No MS. Trace MR. Mild TR with RVSP 32 mmHg Echocardiogram: (06/09/2024 [facility] BEDS AT [facility]) revealed Left ventricle: Left ventricle is normal-sized with normal systolic function. LVEF was around 55%. There was no gross wall motion abnormality. Right ventricle was normal-sized with normal systolic function. Both atria were normal-sized. Aortic valve: Aortic valve is trileaflet. There was no aortic stenosis/insufficiency. There was no mitral regurgitation. There was trivial tricuspid regurgitation. Pulmonary valve was not well visualized. Right ventricular systolic pressure was around 30 mm Hg. There was no pericardial effusion Echocardiogram: (12/20/2024 [facility]) revealed TDS, EF 65%, stage I diastolic dysfunction, RV size and function is normal. mild LA dilation. Both AV and MV are opening adequately, mild TR with RVSP 26 mmhg. BLE Venous Duplex revealed IMPRESSION: 1. There is no sonographic evidence for DVT in the lower extremities. VQ Scan revealed IMPRESSION: 1. Normal perfusion. No evidence of pulmonary embolism. 2. Abnormal ventilation is likely due to multifocal airspace disease seen on recent radiographs. Symptomatic hypoglycemia, resolved Sepsis, in the setting of pneumonia/complicated UTI Sinus tachycardia, likely secondary to the above Abnormal D-Dimer, PE/DVT ruled out Chronic diastolic heart failure Baseline poor functional status Old history of previous CVA Residual left hemiparesis Chronic kidney disease Diabetes mellitus II Hyperlipidemia Hypertension Hyperkalemia CARDIAC SUGGESTIONS FOR MANAGEMENT: Awaiting ordered 2D Echocardiogram Fluid volume management per Nephrology secondary to renal status Proceed with close observation for overt signs of fluid overload Proceed with strict intakes, outputs, and daily weights Proceed with close rate and rhythm surveillance Sustain Magnesium level greater than 2.0 Sustain Potassium level greater than 4.0 Follow up renal function and electrolytes Supplemental oxygen as warranted PRN Lopressor (IV) for rate control On IV antibiotic therapy Management of diabetes mellitus/hypoglycemia as per primary team Management of sepsis (pneumonia/UTI) as per primary team Management of chronic kidney disease as per Nephrology Management of co-morbidities per primary team Proceed with close hemodynamic surveillance Proceed with optimized blood pressure control Transfuse to sustain HGB level above 7.0 Management in telemetry Follow up cyber security consultant recommendations Will proceed to follow from a cardiac perspective Further recommendations per clinical progression All available diagnostic labs, EKG's, and images were personally reviewed Patient's status, findings, and plan of care was reviewed and discussed with supervising physician Dr. Zee, who is in agreement with current plan of care. Plan of care discussed with and agreed upon by patient / primary RN Prognosis: Guarded Thank you for allowing me to participate in the care of this patient. Further recommendations based on patients clinical course and progression, primary attending, and other consultants. Will continue to follow with primary attending. If you have any questions or concerns, please do not hesitate to contact me. A total of 75 minutes was spent reviewing the patient record, examining the patient, making a diagnostic and therapeutic plan, discussing this plan with medical personnel, following up on diagnostic studies and following the patient for clinical stability excluding any and all procedures. At least 50% of this time was spent in direct, [id number] Plan discussed with: Patient (Patient and Primary RN ) MAYCOL GRIFFITH AUDIO VISUAL ARTS DIRECTOR Dec 31, 2024 06:33
--- NOTE | 2024-12-31 06:33 | DVHPN2 ---
Progress Note - Dictate Date Seen: Dec 30, 2024 Medical Necessity Reason Pt with a Central, PICC or Fol: No Subjective Patient seen and examined at the bedside. Tachycardia now improved. Chart reviewed. vital signs Vital Sign Date Time Temp Pulse Resp B/P (MAP) Pulse Ox O2 Delivery O2 Flow Rate FiO2 12/31/24 01:56 92 26 97 12/31/24 01:23 97.8 141/72 (95) 97.8 12/30/24 20:00 Nasal Cannula* 4 36 Total Intake and Output 12/30/24 12/30/24 12/31/24 15:00 23:00 07:00 Intake Total 755 ml 200 ml Output Total 800 ml 1300 ml Balance -45 ml -1100 ml medications Current Medications Medications Dose Ordered Sig/Wai Route Start Time Stop Time Status Last Admin Dose Admin Acetaminophen/ Hydrocodone Bitart 1 tab Q4HP PRN PO 12/29/24 09:15 Ondansetron HCl 4 mg Q4HP PRN IV 12/29/24 09:15 Docusate Sodium 100 mg BIDPRN PRN PO 12/29/24 09:15 Zinc Sulfate 220 mg DAILY PO 12/29/24 10:00 12/30/24 10:33 220 MG Ascorbic Acid 500 mg BID PO 12/29/24 10:00 12/30/24 21:46 500 MG Multivitamins 1 tab DAILY PO 12/29/24 10:00 12/30/24 10:32 1 TAB Acetaminophen 650 mg Q6HP PRN PO 12/29/24 09:15 12/30/24 08:58 650 MG Nitroglycerin 0.4 mg Q5MINP PRN SL 12/29/24 09:15 Morphine Sulfate 2 mg Q30M PRN IV 12/29/24 09:15 Doxycycline Monohydrate 100 mg BID PO 12/29/24 10:00 12/30/24 21:46 100 MG Amlodipine Besylate 10 mg DAILY PO 12/29/24 10:00 12/30/24 10:32 10 MG Tamsulosin HCl 0.4 mg QPM PO 12/29/24 18:00 12/30/24 17:04 0.4 MG Metoprolol Tartrate 5 mg Q4HPRN PRN IV 12/29/24 15:30 12/30/24 08:57 5 MG Insulin Human Regular IQ4HR SC 12/30/24 12:00 12/30/24 17:04 2 UNITS Dextrose 50 ml UD PRN IV 12/30/24 09:45 Albuterol 2.5 mg Q4HR NEB 12/30/24 14:00 12/31/24 01:52 2.5 MG Ipratropium [place] 0.5 mg Q4HR NEB 12/30/24 14:00 12/31/24 01:52 0.5 MG Lisinopril 20 mg DAILY PO 12/30/24 12:45 12/30/24 13:24 20 MG Furosemide 40 mg DAILY PO 12/30/24 12:45 12/30/24 13:25 40 MG Diagnostic Test (Pha) 1 strip IQ4HR 12/30/24 16:00 12/31/24 04:20 1 STRIP Piperacillin Sod/ Tazobactam Sod 100 ml @ 25 mls/hr Q8H IV 12/31/24 12:00 laboratory and microbiology Laboratory Tests 12/30/24 04:50 Test 12/30/24 04:50 Range/Units Serum Glucose 122 H 74-106 mg/dL Assessment/Plan ASSESSMENT: This is a 44-year old male known outside to our practice who initially presented for altered mental status found to be hypoglycemic with initial serum glucose level of 44 which later improved status post Dextrose administration. It is of note, patient is on Glipizide outpatient which could have attributed to the underlying hypoglycemia. Patient was also found tachycardic and febrile with highest documented temperature of 101.4 in the setting of sepsis from underlying pneumonia with superimposing urinary tract infection as initial WBC count was found elevated at 16.5 with peak lactic acid level of 2.7. Initial creatinine level found elevated at 2.15 with an initial potassium level of 5.5. Initial magnesium level found to be 1.7. TSH level was found normal at 4.37. D-Dimer did reveal elevation at 1.00. Patient does have underlying history of diastolic heart failure which patient underwent Echocardiogram (12/20/2024 [facility]) revealing TDS, EF 65%, stage I diastolic dysfunction, RV size and function is normal. mild LA dilation. Both AV and MV are opening adequately, mild TR with RVSP 26 mmhg. At present, BNP level was found elevated at 319 however chest imaging reveals no evidence for vascular congestion. 12-lead electrocardiogram upon arrival revealed sinus tachycardia at 109 bpm with no acute ischemic changes. Initial HS troponin level was found unremarkable at 16. As the patient presented with tachycardia and previously known history of diastolic heart failure, Cardiology services have now been involved for cardiac aspects of care. 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 Left Atrium: Left atrium is mildly dilated. No , No MS. Trace MR. Mild TR with RVSP 32 mmHg Echocardiogram: (06/09/2024 [facility]) revealed Left ventricle: Left ventricle is normal-sized with normal systolic function. LVEF was around 55%. There was no gross wall motion abnormality. Right ventricle was normal-sized with normal systolic function. Both atria were normal-sized. Aortic valve: Aortic valve is trileaflet. There was no aortic stenosis/insufficiency. There was no mitral regurgitation. There was trivial tricuspid regurgitation. Pulmonary valve was not well visualized. Right ventricular systolic pressure was around 30 mm Hg. There was no pericardial effusion Echocardiogram: (12/20/2024 [facility]) revealed TDS, EF 65%, stage I diastolic dysfunction, RV size and function is normal. mild LA dilation. Both AV and MV are opening adequately, mild TR with RVSP 26 mmhg. Symptomatic hypoglycemia Sepsis, in the setting of pneumonia/complicated UTI Sinus tachycardia, likely secondary to the above Abnormal D-Dimer, rule out PE/DVT Chronic diastolic heart failure Baseline poor functional status Old history of previous CVA Residual left hemiparesis Chronic kidney disease Diabetes mellitus II Hyperlipidemia Hypertension Hyperkalemia CARDIAC SUGGESTIONS FOR MANAGEMENT: Request for VQ scan Request for BLE Venous Duplex Request for 2D Echocardiogram Fluid volume management per Nephrology secondary to renal status Proceed with close observation for overt signs of fluid overload Proceed with strict intakes, outputs, and daily weights Proceed with close rate and rhythm surveillance Sustain Magnesium level greater than 2.0 Sustain Potassium level greater than 4.0 Follow up renal function and electrolytes Supplemental oxygen as warranted PRN Lopressor (IV) for rate control On IV antibiotic therapy Management of diabetes mellitus/hypoglycemia as per primary team Management of sepsis (pneumonia/UTI) as per primary team Management of chronic kidney disease as per Nephrology Management of co-morbidities per primary team Proceed with close hemodynamic surveillance Proceed with optimized blood pressure control Transfuse to sustain HGB level above 7.0 Management in telemetry Follow up philatelic consultant recommendations Will proceed to follow from a cardiac perspective Further recommendations per clinical progression All available diagnostic labs, EKG's, and images were personally reviewed Patient's status, findings, and plan of care was reviewed and discussed with supervising physician Dr. Zee, who is in agreement with current plan of care. Plan of care discussed with and agreed upon by patient / primary RN Prognosis: Guarded Thank you for allowing me to participate in the care of this patient. Further recommendations based on patients clinical course and progression, primary attending, and other consultants. Will continue to follow with primary attending. If you have any questions or concerns, please do not hesitate to contact me. A total of 75 minutes was spent reviewing the patient record, examining the patient, making a diagnostic and therapeutic plan, discussing this plan with medical personnel, following up on diagnostic studies and following the patient for clinical stability excluding any and all procedures. At least 50% of this time was spent in direct, [id number] Plan discussed with: Patient (Patient and Primary RN ) MAYCOL GRIFFITH Dec 31, 2024 06:33
--- NOTE | 2024-12-31 10:40 | CONS ---
Pharmacy Clinical Information: CQM HF. At this moment, there is no record of a lipid panel done at this [facility]. It might be beneficial to have a lipid panel before making guideline based recommendations for lipid lowering therapy. ANTIONE HERNANDEZ PHARMACIST Dec 31, 2024 10:40
--- NOTE | 2024-12-31 11:04 | DVHPN2 ---
Progress Note - Dictate Date Seen: Dec 31, 2024 Medical Necessity Reason Pt with a Central, PICC or Fol: No vital signs Vital Sign Date Time Temp Pulse Resp B/P (MAP) Pulse Ox O2 Delivery O2 Flow Rate FiO2 12/31/24 10:46 84 18 100 12/31/24 10:40 Nasal Cannula 4.0 12/31/24 10:40 36 12/31/24 10:22 109/72 12/31/24 09:00 98.3 98.3 Total Intake and Output 12/30/24 12/30/24 12/31/24 15:00 23:00 07:00 Intake Total 755 ml 200 ml Output Total 800 ml 1300 ml Balance -45 ml -1100 ml medications Current Medications Medications Dose Ordered Sig/Wai Route Start Time Stop Time Status Last Admin Dose Admin Acetaminophen/ Hydrocodone Bitart 1 tab Q4HP PRN PO 12/29/24 09:15 Ondansetron HCl 4 mg Q4HP PRN IV 12/29/24 09:15 Docusate Sodium 100 mg BIDPRN PRN PO 12/29/24 09:15 Zinc Sulfate 220 mg DAILY PO 12/29/24 10:00 12/31/24 10:14 220 MG Ascorbic Acid 500 mg BID PO 12/29/24 10:00 12/31/24 10:15 500 MG Multivitamins 1 tab DAILY PO 12/29/24 10:00 12/31/24 10:15 1 TAB Acetaminophen 650 mg Q6HP PRN PO 12/29/24 09:15 12/30/24 08:58 650 MG Nitroglycerin 0.4 mg Q5MINP PRN SL 12/29/24 09:15 Morphine Sulfate 2 mg Q30M PRN IV 12/29/24 09:15 Doxycycline Monohydrate 100 mg BID PO 12/29/24 10:00 12/31/24 10:15 100 MG Amlodipine Besylate 10 mg DAILY PO 12/29/24 10:00 12/31/24 10:21 10 MG Tamsulosin HCl 0.4 mg QPM PO 12/29/24 18:00 12/30/24 17:04 0.4 MG Metoprolol Tartrate 5 mg Q4HPRN PRN IV 12/29/24 15:30 12/30/24 08:57 5 MG Insulin Human Regular IQ4HR SC 12/30/24 12:00 12/30/24 17:04 2 UNITS Dextrose 50 ml UD PRN IV 12/30/24 09:45 Albuterol 2.5 mg Q4HR NEB 12/30/24 14:00 12/31/24 10:40 2.5 MG Ipratropium [place] 0.5 mg Q4HR NEB 12/30/24 14:00 12/31/24 10:40 0.5 MG Lisinopril 20 mg DAILY PO 12/30/24 12:45 12/31/24 10:20 20 MG Furosemide 40 mg DAILY PO 12/30/24 12:45 12/31/24 10:22 40 MG Diagnostic Test (Pha) 1 strip IQ4HR 12/30/24 16:00 12/31/24 08:00 1 STRIP Piperacillin Sod/ Tazobactam Sod 100 ml @ 25 mls/hr Q8H IV 12/31/24 12:00 objective General Appearance: alert, no distress HEENT: EOMI, PERRLA, normal external inspect of ears, no icterus, no nasal drainage Neck: no carotid bruit, no jugular venous distention (JVD), no lymphadenopathy Chest: normal thorax Respiratory: clear to auscultation, normal air movement Cardiovascular: regular rate and rhythm, no diastolic murmur, no jugular venous distention (JVD), no rub, no systolic murmur Abdominal: soft, no hepatomegaly, no mass, no splenomegaly, no tenderness Genitourinary: grossly normal external Musculoskeletal: no joint tenderness, no swelling Extremities: normal pulses, no calf tenderness, no clubbing, no cyanosis, no edema Skin: no bruising, no jaundice, no rash Neurological: alert, No focal deficit laboratory and microbiology Laboratory Tests 12/30/24 04:50 Test 12/30/24 04:50 Range/Units Serum Glucose 122 H 74-106 mg/dL Problem List 1. Sepsis Monitor, IV fluids, IV abx, cardiology consult 2. Hypoglycemia Monitor, hypoglycemia treatment 3. DM II Monitor, wound care consult 4. Pneumonia Monitor, IV abx 5. Bed bound Monitor 6. Acute cystitis w/o hematuria Monitor, IV abx 7. Hx of CVA with residual deficits Monitor 8. CKD3b Monitor, nephrology consult 9. Acute hypoxic respiratory failure Monitor, med-neb treatments, pulmonary consult, IV antibiotics Assessment/Plan Subjective: Patient is not awake or alert. Objective: Patient is having some tachypnea. Patient has rhonchi throughout all lung perez. Plan: Pulmonary consult and IV antibiotics and med neb treatments. Plan discussed with: Patient, Other RAÚL STEEL NP Dec 31, 2024 11:03
[2024-12-31] MEDS: PIPERACILLIN-TAZOB 3.375GM 100 ML IV SCH ×2 (11:14→22:25)
--- NOTE | 2024-12-31 14:46 | DVH ---
CLINICAL INFORMATION: 44 years old, Male; PULMONARY EMBOLISM. TECHNIQUE: 5.5 mCi of aerosolized Tc99m DTPA was used for the ventilation portion of the exam. Poste rior ventilation imaging was obtained. 4.1 mCi of technetium 99m MAA was used for the perfusion porti on of the exam. Imaging was obtained in multiple planes of projection. COMPARISON: Radiograph dated 12/31/2024. FINDINGS: Perfusion imaging shows no mismatched segmental or subsegmental segmental defects. Ventilation images demonstrate decreased activity in the left lung compared to the right, may be due to the airspace disease seen on recent radiographs. IMPRESSION: 1. Normal perfusion. No evidence of pulmonary embolism. 2. Abnormal ventilation is likely due to multifocal airspace disease seen on recent radiographs.
[2024-12-31 15:04] LABS: Basophils # (auto) 0 10 ^3/uL (0-0.2); Eosinophils # (auto) 0 10 ^3/uL (0-0.8); Hemoglobin 7.7 g/dL (13.5-17.5); Lymphocytes # (auto) 2.1 10 ^3/uL (0.4-5.4); Mean Corpuscular Hgb Conc. 32.3 g/dL (32.0-36.0); Monocytes # (auto) 0.7 10 ^3/uL (0-1.3)
[2024-12-31 15:06] LABS: Chloride 107 mmol/L (98-107)
[2024-12-31 15:07] LABS: Anion Gap 10 (5-15); Basophils % (auto) 0.2 % (0.0-2.0); Lymphocytes % (auto) 15.7 % (10.0-50.0); Mean Corpuscular Hemoglobin 29.7 pg (28.0-32.0); Mean Corpuscular Volume 92.2 fL (80.0-100.0); Neutrophils # (auto) 10.8 10 ^3/uL (1.6-8.6); Neutrophils % (auto) 79.1 % (37.0-80.0); Platelet Count (auto) 161 10^3/uL (140-450); Red Cell Distribution Width 17.9 % (11.8-14.3); White Blood Cell 13.7 10^3/uL (4.4-10.8)
[2024-12-31 15:13] LABS: BUN/Creatinine Ratio 21.3 (10.0-20.0); Blood Urea Nitrogen 50 mg/dL (9-23); Calcium 8.2 mg/dL (8.7-10.4); Carbon Dioxide 14 mmol/L (20-31); Glucose 161 mg/dL (74-106); Sodium 131 mmol/L (136-145)
[2024-12-31 15:27] LABS: Triglycerides 107 mg/dL (< 150)
[2024-12-31 15:28] LABS: LDL Cholesterol 116 mg/dL (< 100)
[2024-12-31 15:46] LABS: Cholesterol 221 mg/dL (< 200); HDL Cholesterol 67 mg/dL (40-59)
[2024-12-31] MEDS ORDERED: VANCOMYCIN PER PHARMACY 0 MG IV SCH (16:45)
[2024-12-31] MEDS: VANCOMYCIN 750MG KIT 100 ML IV ONE (18:02)
--- NOTE | 2024-12-31 19:08 | DVHPN2 ---
Progress Note - Dictate Date Seen: Dec 31, 2024 Medical Necessity Reason Pt with a Central, PICC or Fol: No Subjective tachypnea has resolved spoke with patients family at bedside vital signs Vital Sign Date Time Temp Pulse Resp B/P (MAP) Pulse Ox O2 Delivery O2 Flow Rate FiO2 12/31/24 18:29 88 18 100 12/31/24 18:23 Nasal Cannula* 2 28 12/31/24 17:00 97.1 107/62 (77) 97.1 Total Intake and Output 12/30/24 12/30/24 12/31/24 15:00 23:00 07:00 Intake Total 755 ml 200 ml Output Total 800 ml 1300 ml Balance -45 ml -1100 ml medications Current Medications Medications Dose Ordered Sig/Wai Route Start Time Stop Time Status Last Admin Dose Admin Acetaminophen/ Hydrocodone Bitart 1 tab Q4HP PRN PO 12/29/24 09:15 Ondansetron HCl 4 mg Q4HP PRN IV 12/29/24 09:15 Docusate Sodium 100 mg BIDPRN PRN PO 12/29/24 09:15 Zinc Sulfate 220 mg DAILY PO 12/29/24 10:00 12/31/24 10:14 220 MG Ascorbic Acid 500 mg BID PO 12/29/24 10:00 12/31/24 10:15 500 MG Multivitamins 1 tab DAILY PO 12/29/24 10:00 12/31/24 10:15 1 TAB Acetaminophen 650 mg Q6HP PRN PO 12/29/24 09:15 12/30/24 08:58 650 MG Nitroglycerin 0.4 mg Q5MINP PRN SL 12/29/24 09:15 Morphine Sulfate 2 mg Q30M PRN IV 12/29/24 09:15 Amlodipine Besylate 10 mg DAILY PO 12/29/24 10:00 12/31/24 10:21 10 MG Tamsulosin HCl 0.4 mg QPM PO 12/29/24 18:00 12/31/24 17:24 0.4 MG Metoprolol Tartrate 5 mg Q4HPRN PRN IV 12/29/24 15:30 12/30/24 08:57 5 MG Insulin Human Regular IQ4HR SC 12/30/24 12:00 12/31/24 16:00 2 UNITS Dextrose 50 ml UD PRN IV 12/30/24 09:45 Albuterol 2.5 mg Q4HR NEB 12/30/24 14:00 12/31/24 18:23 2.5 MG Ipratropium [place] 0.5 mg Q4HR NEB 12/30/24 14:00 12/31/24 18:23 0.5 MG Lisinopril 20 mg DAILY PO 12/30/24 12:45 12/31/24 10:20 20 MG Furosemide 40 mg DAILY PO 12/30/24 12:45 12/31/24 10:22 40 MG Diagnostic Test (Pha) 1 strip IQ4HR 12/30/24 16:00 12/31/24 16:00 1 STRIP Piperacillin Sod/ Tazobactam Sod 100 ml @ 25 mls/hr Q8HR IV 12/31/24 22:00 UNV Azithromycin 250 ml @ 125 mls/hr DAILY IV 01/01/25 10:00 Piperacillin Sod/ Tazobactam Sod 100 ml @ 25 mls/hr Q8HR IV 12/31/24 22:00 UNV Vancomycin HCl 0 ml @ 0 mls/hr UD IV 01/01/25 10:00 UNV objective Gen: NAD HEENT: NC,AT Lungs: rales Cardiac: Tachycardia, no murmur Abd: soft, no tenderness Ext: no edema + Lindsay laboratory and microbiology Laboratory Tests 12/31/24 14:33 Test 12/31/24 14:33 Range/Units Serum Glucose 161 H 74-106 mg/dL Assessment/Plan Assessment: non-oliguric LISANDRO, pre-renal + sepsis CKD III. (Baseline Cr 1.6 mg/dl on May/2024) Acute hypoxic respiratory failure on supplemental oxygen Sepsis secondary to pneumonia Acute on Chronic diastolic CHF Hypoglycemia lactic acidosis Hyperkalemia, resolved DM HTN HLD h/o CVA with residual left sided weakness bed bound Plan: Increase Lasix to 40 mg IV BID Continue IV antibiotics Pulmonary consult daily BMP, and Mg continue Amlodipine 10 mg PO daily strict I&Os Plan discussed with: Patient EBER ABBOTT MD Dec 31, 2024 19:08
[2024-12-31] MEDS: FUROSEMIDE 20 MG TAB PO SCH (19:15)
--- NOTE | 2024-12-31 19:36 | DVHINCON2 ---
AL ROTH RESIDENT 12/31/24 1936: Date of service: Dec 31, 2024 Referring Physician Jai WELSH Reason for Consultation Jai WELSH History of Present Illness Patient is a 44-year-old male with past medical history of cerebral palsy/bedridden, diabetes mellitus, history of CVA with residual deficits, CKD stage 3, obstructive uropathy, diastolic CHF, hypertension, hyperlipidemia, hydronephrosis, anemia who brought to the hospital via EMS for altered mental status. As per family patient was being differently that is why EMS was called. During ED evaluation, patient found to have severe hypoglycemia with blood sugar level at 40 and shortness of breath where he was started on oxygen around 3-5 L via nasal cannula. Patient continue given IV fluid given WBC count high with chest x-ray showed left lung opacity. Patient never required vasopressors, his temperature also improved from 100.3-98.3. His tachycardia also improved, blood pressure ranging 100 20-130 systolic blood pressure. All the information obtained from medical record given patient is poor historian and not able to provide enough history given he only saying he does not know with all the question I asked. No any other new complaints. Medical history:cerebral palsy/bedridden, diabetes mellitus, history of CVA with residual deficits, CKD stage 3, obstructive uropathy, diastolic CHF, hypertension, hyperlipidemia, hydronephrosis, anemia Past surgical: Urethral dilation and dorsal sleep on 05/14/2024. Patient lives with family. No allergies Recent hospitalization at [facility] with urinary tract infection given antibiotics. Family History: FH: diabetes mellitus FHx: stroke Allergies: Coded Allergies: NO KNOWN ALLERGIES (Unverified , 07/19/23) Home Meds Reported Medications Tamsulosin Hcl (Tamsulosin Hcl) 0.4 Mg Cap, 1 CAP PO DAILY for 30 Days, #30 12/31/24 Lisinopril (Lisinopril) 40 Mg Tab, 1 TAB PO DAILY for 30 Days, #30 12/31/24 Amlodipine Besylate (Amlodipine Besylate) 10 Mg Tab, 1 TAB PO DAILY for 30 Days, #30 12/31/24 Metformin Hydrochloride (Metformin Hcl) 500 Mg Tab, 1 TAB PO DAILY for 30 Days, #30 TAKE 1 TABLET BY MOUTH ONCE DAILY WITH BREAKFAST. 12/31/24 Glipizide (Glipizide Er) 5 Mg Tab, 1 TAB PO DAILY for 30 Days, #30 TAKE 1 TABLET BY MOUTH ONCE DAILY WITH BREAKFAST. 12/31/24 Current Medications Current Medications Medications (Trade) Dose Ordered Sig/Wai Route PRN Reason Start Time Stop Time Status Last Admin Piperacillin Sod/ Tazobactam Sod 100 ml @ 25 mls/hr Q8H IV 12/31/24 12:00 12/31/24 17:56 DC 12/31/24 11:14 Meropenem 50 ml @ 17 mls/hr BID IV 12/31/24 22:00 12/31/24 15:44 DC Piperacillin Sod/ Tazobactam Sod 100 ml @ 25 mls/hr Q8HR IV 12/31/24 22:00 UNV Fluconazole 100 ml @ 100 mls/hr DAILY IV 01/01/25 10:00 12/31/24 17:56 DC Vancomycin HCl 0 ml @ 0 mls/hr UD IV 12/31/24 16:45 12/31/24 17:56 DC Azithromycin 250 ml @ 125 mls/hr DAILY IV 01/01/25 10:00 Piperacillin Sod/ Tazobactam Sod 100 ml @ 25 mls/hr Q8HR IV 12/31/24 22:00 UNV Vancomycin HCl 0 ml @ 0 mls/hr UD IV 01/01/25 10:00 UNV Furosemide (Lasix Tablet) 40 mg BID PO 12/31/24 19:15 UNV Review of Systems Patient is poor historian, patient denying any other complaints. Vital Signs Vital Signs Date Time Temp Pulse Resp B/P (MAP) Pulse Ox O2 Delivery O2 Flow Rate FiO2 12/31/24 18:29 88 18 100 12/31/24 18:23 Nasal Cannula* 2 28 12/31/24 17:00 97.1 107/62 (77) 97.1 Physical Exam General Appearance: Cooperative. Well developed. Well nourished. NAD Head Exam: Normal inspection Neck Exam: Normal inspection. Non-tender. Normal alignment Pulmonary/Respiratory: Chest non-tender. Bilateral lung base crackles. Cardiovascular/Chest: Regular rate and rhythm. No murmurs. No JVD. Peripheral Pulses: 2+ Radial (R). 2+ Radial (L). 2+ Pedal (R). 2+ Pedal (L) Abdominal Exam: Normal bowel sounds. Soft. Nontender. No hepatospenomegaly. No masses Ankle Exam: Negative ankle edema Lower extremities: Negative lower extremity edema Neuro/Mental Status: A&O x4. Coherent Thoughts/Psych: Normal thought pattern. Appropriate mood and affect. Good judgement and insight Appearance: In no acute distress Skin Exam: Normal inspection. Normal color. Warm. Dry Labs/Diagnostic Data Labs Test 12/31/24 14:33 12/31/24 04:16 12/30/24 04:50 12/29/24 15:56 Range/Units White Blood Count 13.7 #H 4.4-10.8 10^3/uL Red Blood Count 2.60 L 4.5-5.90 10^6/uL Hemoglobin 7.7 L 13.5-17.5 g/dL Hematocrit 24.0 L 41.0-53.0 % Mean Corpuscular Volume 92.2 80.0-100.0 fL Mean Corpuscular Hemoglobin 29.7 28.0-32.0 pg Mean Corpuscular Hemoglobin Concent 32.3 32.0-36.0 g/dL Red Cell Distribution Width 17.9 H 11.8-14.3 % Platelet Count 161 140-450 10^3/uL Mean Platelet Volume 11.6 H 6.9-10.8 fL Neutrophils (%) (Auto) 79.1 37.0-80.0 % Lymphocytes (%) (Auto) 15.7 10.0-50.0 % Monocytes (%) (Auto) 5.0 0.0-12.0 % Eosinophils (%) (Auto) 0.0 0.0-7.0 % Basophils (%) (Auto) 0.2 0.0-2.0 % Neutrophils # (Auto) 10.8 H 1.6-8.6 10 ^3/uL Lymphocytes # (Auto) 2.1 0.4-5.4 10 ^3/uL Monocytes # (Auto) 0.7 0-1.3 10 ^3/uL Eosinophils # (Auto) 0 0-0.8 10 ^3/uL Basophils # (Auto) 0 0-0.2 10 ^3/uL Nucleated Red Blood Cells 0.0 % Sodium Level 131 L 136-145 mmol/L Potassium Level 4.0 3.5-5.1 mmol/L Chloride Level 107 98-107 mmol/L Carbon Dioxide Level 14 L 20-31 mmol/L Anion Gap 10 5-15 Blood Urea Nitrogen 50 #H 9-23 mg/dL Creatinine 2.35 H 0.700-1.30 mg/dL Glomerular Filtration Rate Calc 34 >90 mL/min BUN/Creatinine Ratio 21.3 H 10.0-20.0 Serum Glucose 161 H 74-106 mg/dL Calcium Level 8.2 L 8.7-10.4 mg/dL B-Type Natriuretic Peptide 115.58 0-100 pg/mL Triglycerides Level 107 < 150 mg/dL Cholesterol Level 221 H < 200 mg/dL LDL Cholesterol 116 H < 100 mg/dL HDL Cholesterol 67 H 40-59 mg/dL POC Glucose 84 70-106 mg/dl Total Bilirubin 0.2 0.2-1.0 mg/dL Aspartate Amino Transferase (AST) 40 13-40 U/L Alanine Aminotransferase (ALT) 31 7-40 U/L Alkaline Phosphatase 322 H 46-116 U/L Total Protein 5.5 L 5.7-8.2 g/dL Albumin 2.9 L 3.2-4.8 g/dL D-Dimer, Quantitative 1.00 H 0.0-0.49 mg/L FEU Test 12/29/24 12:49 12/29/24 06:57 12/29/24 05:44 Range/Units Lactic Acid Level 2.7 *H 0.4-2.0 mmol/L Urine Color Colorless Yellow Urine Clarity Turbid H Clear Urine pH 6.0 5.0-9.0 Urine Specific Harmon 1.014 1.001-1.035 Urine Protein 3+ H Negative Urine Ketones Negative Negative Urine Blood 1+ H Negative /uL Urine Nitrite Negative Negative Urine Bilirubin Negative Negative Urine Urobilinogen Normal Negative mg/dL Urine Leukocyte Esterase 3+ Negative /uL Urine RBC 3 0 - 3 /hpf Urine WBC Clumps Present None Seen /hpf Urine Microscopic WBC 447 H 0-3 /HPF Urine Squamous Epithelial Cells Few <5 /hpf Urine Bacteria None seen None Seen /hpf Urine Hyaline Casts Few 0 - 2 /lpf Urine Yeast (Budding) Occasional None Seen /hpf Urine Glucose 2+ H Normal mg/dL Prothrombin Time 10.3 9.3-11.8 sec Prothrombin Time INR 0.97 0.9-1.15 Activated Partial Thromboplast Time 29.6 24.5-34.5 SEC Magnesium Level 1.7 1.6-2.6 mg/dL Troponin I High Sensitivity 16 </=54 ng/L Thyroid Stimulating Hormone (TSH) 4.37 0.55-4.78 uIU/mL Microbiology Date/Time Source Procedure Growth Status 12/29/24 21:31 Nose MRSA Screen - Final Complete 12/29/24 09:50 Blood Blood Culture - Preliminary NO GROWTH AFTER 48 HOURS OF INCUBATION. Resulted 12/29/24 06:57 Voided Urine Urine Culture - Preliminary Yeast, not Diana albicans Resulted Assessment Sepsis in setting of pneumonia likely g negative Acute complicated UTI Hypoglycemia Ruled out PE Chronic diastolic heart failure History of CVA with residual left-sided weakness CKD stage 3 Diabetes mellitus type 2 Hypertension Hyperlipidemia Bed-bound Plan/recommendation Dr frankel -continue IV antibiotic with Zosyn and azithromycin given likely pneumonia is related community-acquired, given MRSA negatives we will discontinue vancomycin. Discontinue fluconazole as well. -MRSA negative -blood culture(12/29/24): Negative, no growth after 48 hours of incubation -urine culture from 12/29/2024: Yeast, not Diana albicans, likely contamination. No need for antifungal. -pending respiratory culture, influenza and COVID swab. -reviewed chest x-ray which showed left-sided lung obesity. -procalcitonin -on oxygen via nasal cannula, currently at 3-5 L. -continue IV fluid, continue to monitor urine output. -rest of the management as per hospitalist. Plan discussed with: Patient, Other (RN) MOISE FRANKEL MD 01/03/25 1548: Family History: FH: diabetes mellitus FHx: stroke Allergies: Coded Allergies: NO KNOWN ALLERGIES (Unverified , 07/19/23) Home Meds Reported Medications Tamsulosin Hcl (Tamsulosin Hcl) 0.4 Mg Cap, 1 CAP PO DAILY for 30 Days, #30 12/31/24 Lisinopril (Lisinopril) 40 Mg Tab, 1 TAB PO DAILY for 30 Days, #30 12/31/24 Amlodipine Besylate (Amlodipine Besylate) 10 Mg Tab, 1 TAB PO DAILY for 30 Days, #30 12/31/24 Metformin Hydrochloride (Metformin Hcl) 500 Mg Tab, 1 TAB PO DAILY for 30 Days, #30 TAKE 1 TABLET BY MOUTH ONCE DAILY WITH BREAKFAST. 12/31/24 Glipizide (Glipizide Er) 5 Mg Tab, 1 TAB PO DAILY for 30 Days, #30 TAKE 1 TABLET BY MOUTH ONCE DAILY WITH BREAKFAST. 12/31/24 Assessment Attending Addendum: Case discussed with Dr. Roth. at the time of visit. Seen by Dr Roth and reviewed assessment and plan . patient is a 44 year old male with a past medical history of cerebral palsy and related mental delay with bedridden diabetes and has a history of stroke with residual deficit CKD and stage 3 obstructive uropathy , diastolic CHF , hypertension , hyperlipidemia, hydronephrosis, anemia and was brought into the hospital with altered mental status and was recently admitted to [facility] a week ago with hyperglycemia and concerned as well of LISANDRO . Patient was treated for a UTI at that hospitalization and now presents with SOB and hypoglycemia with blood sugar in the 40s and patient is requiring 3-5 liters of nasal canula . Chest xray shows left lung opacities with concern for pneumonia and temp has ranged from 100.3- 98.3 and is tachycardic . overall tachycardia , fever and BP has been improving during this hospital course. Surgical history include ureteral dilation , review of systems . patient indorses SOB and cough , no sputum production , no diarrhea and no chest pains . Temperature of 97.1 currently with pulse 88 and BP 107/62 and setting 100% on 2 liters nasal canula. patient is altert and oriented and able to answer short questions , crackles in bases bilaterally . whitecount 13.7 that has come down from 20.7 on admission and platelet has come down to 148 from 210. Urine cultures shows deyanira , patient came in with a smith catheter , blood cultures is no growth to date , MRSA nares is negative . chest xray shows left lung hezy opacities which may represent pneumonia and doppler ultrasound showed no signs of DVT in lower extremities . plan would be to cover empirically for hospital aquired pneumonia due to recent [facility] visit , would forgo vancomycin due to negative MRSA nares , would continue Zosyn and start azithromycin for hospital aquired pneumonia coverage given the multifocal nature of the opacities , no need for fluconazole instead would recommend exchange of smith catheter if patient still requires smith . check procal serotinum level , check sputum culture that may need inducing . follow up on influenza, covid and RSV swab testing . Assessment and Plan reviewed with Dr. Roth and agree with finding written above. 12 point review of systems was conducted AL ROTH Dec 31, 2024 19:36 MOISE FRANKEL MD Jan 03, 2025 15:48
[2024-12-31] MEDS ORDERED: PIPERACILLIN-TAZOB 3.375GM 100 ML IV SCH (22:00)
[2024-12-31] MEDS ORDERED: MEROPENEM 1GM IVPB 50 ML IV SCH (22:00)
--- NOTE | 2024-12-31 22:55 | DVHPN2 ---
Progress Note - Dictate Date Seen: Dec 31, 2024 Medical Necessity Reason Pt with a Central, PICC or Fol: Yes The following are medically ne: Smith Catheter Reason for smith catheter: Strict I&O Subjective Patient seen and examined at bedside. Remains on supplemental oxygen Overnight events reviewed. vital signs Vital Sign Date Time Temp Pulse Resp B/P (MAP) Pulse Ox O2 Delivery O2 Flow Rate FiO2 12/31/24 22:24 115/66 12/31/24 22:09 75 18 100 12/31/24 22:03 Nasal Cannula 2.0 12/31/24 22:03 28 12/31/24 21:00 98.3 98.3 Total Intake and Output 12/30/24 12/30/24 12/31/24 15:00 23:00 07:00 Intake Total 755 ml 200 ml Output Total 800 ml 1300 ml Balance -45 ml -1100 ml medications Current Medications Medications Dose Ordered Sig/Wai Route Start Time Stop Time Status Last Admin Dose Admin Acetaminophen/ Hydrocodone Bitart 1 tab Q4HP PRN PO 12/29/24 09:15 Ondansetron HCl 4 mg Q4HP PRN IV 12/29/24 09:15 Docusate Sodium 100 mg BIDPRN PRN PO 12/29/24 09:15 Zinc Sulfate 220 mg DAILY PO 12/29/24 10:00 12/31/24 10:14 220 MG Ascorbic Acid 500 mg BID PO 12/29/24 10:00 12/31/24 22:23 500 MG Multivitamins 1 tab DAILY PO 12/29/24 10:00 12/31/24 10:15 1 TAB Acetaminophen 650 mg Q6HP PRN PO 12/29/24 09:15 12/30/24 08:58 650 MG Nitroglycerin 0.4 mg Q5MINP PRN SL 12/29/24 09:15 Morphine Sulfate 2 mg Q30M PRN IV 12/29/24 09:15 Amlodipine Besylate 10 mg DAILY PO 12/29/24 10:00 12/31/24 10:21 10 MG Tamsulosin HCl 0.4 mg QPM PO 12/29/24 18:00 12/31/24 17:24 0.4 MG Metoprolol Tartrate 5 mg Q4HPRN PRN IV 12/29/24 15:30 12/30/24 08:57 5 MG Insulin Human Regular IQ4HR SC 12/30/24 12:00 12/31/24 19:49 3 UNITS Dextrose 50 ml UD PRN IV 12/30/24 09:45 Albuterol 2.5 mg Q4HR NEB 12/30/24 14:00 12/31/24 22:02 2.5 MG Ipratropium [place] 0.5 mg Q4HR NEB 12/30/24 14:00 12/31/24 22:03 0.5 MG Lisinopril 20 mg DAILY PO 12/30/24 12:45 12/31/24 10:20 20 MG Diagnostic Test (Pha) 1 strip IQ4HR 12/30/24 16:00 12/31/24 19:47 1 STRIP Piperacillin Sod/ Tazobactam Sod 100 ml @ 25 mls/hr Q8HR IV 12/31/24 22:00 UNV Azithromycin 250 ml @ 125 mls/hr DAILY IV 01/01/25 10:00 Piperacillin Sod/ Tazobactam Sod 100 ml @ 25 mls/hr Q8HR IV 12/31/24 22:00 12/31/24 22:25 25 MLS/HR Furosemide 40 mg BID PO 12/31/24 19:15 12/31/24 22:24 40 MG objective Gen.: Patient lying in bed in no apparent distress. On supplemental oxygen. Head: Normocephalic, atraumatic. Eyes: EOMI/PERRLA. Ears: Normal hearing. Normal anatomy. Neck/trachea: Trachea midline, supple. Nose: Normal external anatomy. Mouth: Moist mucous membranes. Chest: Decreased air entry bilaterally. No wheezing or rhonchi. Cardiovascular: Positive S1, positive S2. Regular rate and rhythm. Abdomen: Positive bowel sounds in all 4 quadrants. Soft, non-tender, non- distended. : Deferred. Rectal: Deferred. Skin: Warm, dry. Intact. Extremities: 2+ radial pulses bilaterally. No lower extremity edema. Neuro: Awake, alert, oriented x3. No gross motor or sensory deficits. Cranial nerves II through XII intact. Gait not assessed. laboratory and microbiology Laboratory Tests 12/31/24 14:33 Test 12/31/24 14:33 Range/Units Serum Glucose 161 H 74-106 mg/dL Assessment/Plan Impression: Acute hypoxic respiratory failure Dependence on supplemental oxygen Sepsis DM type II w/ hypoglycemia Urinary tract infection CVA with left-sided deficits Pneumonia, likely gram negative Cachexia, BMI 13.9 Events: Remains on supplemental oxygen, 2 LPM NC Taper O2 as tolerated Improved O2 requirements V/Q scan reveals low probability for pulmonary embolism. Continue antibiotics ID recommendations appreciated Blood cultures show no growth x48 hours Urine cultures grew yeast. WBC trending down. Accu-Cheks, ISS. Diurese to euvolemia w/ Lasix Monitor renal function. Monitor electrolytes. Supplement as necessary. Monitor ins and outs. Nephrology recommendations appreciated Labs and imaging reviewed. Rest of plan as noted below. Plan: Supplemental oxygen Titrate to keep O2 sats above 92%. CXR reviewed: Pulmonary congestion and edema, pneumonia. No pneumothorax. Head of bed elevation Aspiration precautions. NTS Continue bronchodilators. Continue antibiotics Follow up cultures Accu-Cheks for glycemic monitoring Diurese to euvolemia w/ Lasix Monitor renal function. Monitor electrolytes. Supplement as necessary. Monitor ins and outs. DVT prophylaxis. Prognosis: Guarded given patient's multiple co-morbidities. Rest of plan per hospitalist and other consultants. Thank you, ANITHA Vergara, for allowing me to participate in this patient's care. Further recommendations will depend on the patient's clinical course. Please do not hesitate to contact me if you have any questions or concerns. This medical document was created using an electronic medical record system with [employer] dictation system. Although these documentations are being carefully reviewed, there may still be some phonetic and typographical changes. The errors are purely typographical, due to imperfection on the software program, and do not reflect any compromise in the patient's medical care. Plan discussed with: Patient, Other (CARMEN Guevara) EDGARDO CULLEN MD Dec 31, 2024 22:55
[2024-12-31 23:45] LABS: COVID19 ANTIGEN SOFIA FIA NEGATIVE (NEGATIVE); Rapid Influenza A Negative (Negative); Rapid Influenza B Negative (Negative)
[2025-01-01] VITALS (21 sets, daily range): BP systolic 100–140; BP diastolic 66–87; PULSE 81–106; RESP 18–22; TEMP 97.7–98.8; O2SAT 93–100
--- NOTE | 2025-01-01 06:07 | DVHPN2 ---
Progress Note - Dictate Date Seen: Jan 01, 2025 Medical Necessity Reason Pt with a Central, PICC or Fol: Yes The following are medically ne: Smith Catheter Reason for smith catheter: Strict I&O Subjective Seen and examined at the bedside within telemetry. Maintaining sinus rhythm upon telemetry review. Hemodynamics remain stable. Chart reviewed. vital signs Vital Sign Date Time Temp Pulse Resp B/P (MAP) Pulse Ox O2 Delivery O2 Flow Rate FiO2 01/01/25 05:00 97.7 83 19 100/78 (85) 94 97.7 01/01/25 02:36 Nasal Cannula 2.0 01/01/25 02:36 28 Total Intake and Output 12/31/24 12/31/24 01/01/25 15:00 23:00 07:00 Intake Total 630 ml 386 ml Output Total 850 ml 350 ml Balance -220 ml 36 ml medications Current Medications Medications Dose Ordered Sig/Wai Route Start Time Stop Time Status Last Admin Dose Admin Acetaminophen/ Hydrocodone Bitart 1 tab Q4HP PRN PO 12/29/24 09:15 Ondansetron HCl 4 mg Q4HP PRN IV 12/29/24 09:15 Docusate Sodium 100 mg BIDPRN PRN PO 12/29/24 09:15 Zinc Sulfate 220 mg DAILY PO 12/29/24 10:00 12/31/24 10:14 220 MG Ascorbic Acid 500 mg BID PO 12/29/24 10:00 12/31/24 22:23 500 MG Multivitamins 1 tab DAILY PO 12/29/24 10:00 12/31/24 10:15 1 TAB Acetaminophen 650 mg Q6HP PRN PO 12/29/24 09:15 12/30/24 08:58 650 MG Nitroglycerin 0.4 mg Q5MINP PRN SL 12/29/24 09:15 Morphine Sulfate 2 mg Q30M PRN IV 12/29/24 09:15 Amlodipine Besylate 10 mg DAILY PO 12/29/24 10:00 12/31/24 10:21 10 MG Tamsulosin HCl 0.4 mg QPM PO 12/29/24 18:00 12/31/24 17:24 0.4 MG Metoprolol Tartrate 5 mg Q4HPRN PRN IV 12/29/24 15:30 12/30/24 08:57 5 MG Insulin Human Regular IQ4HR SC 12/30/24 12:00 01/01/25 00:11 2 UNITS Dextrose 50 ml UD PRN IV 12/30/24 09:45 Albuterol 2.5 mg Q4HR NEB 12/30/24 14:00 01/01/25 02:36 2.5 MG Ipratropium [place] 0.5 mg Q4HR NEB 12/30/24 14:00 01/01/25 02:36 0.5 MG Lisinopril 20 mg DAILY PO 12/30/24 12:45 12/31/24 10:20 20 MG Diagnostic Test (Pha) 1 strip IQ4HR 12/30/24 16:00 01/01/25 03:50 1 STRIP Piperacillin Sod/ Tazobactam Sod 100 ml @ 25 mls/hr Q8HR IV 12/31/24 22:00 UNV Azithromycin 250 ml @ 125 mls/hr DAILY IV 01/01/25 10:00 Piperacillin Sod/ Tazobactam Sod 100 ml @ 25 mls/hr Q8HR IV 12/31/24 22:00 12/31/24 22:25 25 MLS/HR Furosemide 40 mg BID PO 12/31/24 19:15 12/31/24 22:24 40 MG objective Patient seen and examined at the bedside within telemetry. Chart reviewed laboratory and microbiology Laboratory Tests 12/31/24 14:33 Test 12/31/24 14:33 Range/Units Serum Glucose 161 H 74-106 mg/dL Assessment/Plan ASSESSMENT: This is a 44-year old male known outside to our practice who initially presented for altered mental status found to be hypoglycemic with initial serum glucose level of 44 which later improved status post Dextrose administration. It is of note, patient is on Glipizide outpatient which could have attributed to the underlying hypoglycemia. Patient was also found tachycardic and febrile with highest documented temperature of 101.4 in the setting of sepsis from underlying pneumonia with superimposing urinary tract infection as initial WBC count was found elevated at 16.5 with peak lactic acid level of 2.7. Initial creatinine level found elevated at 2.15 with an initial potassium level of 5.5. Initial magnesium level found to be 1.7. TSH level was found normal at 4.37. D-Dimer did reveal elevation at 1.00. Patient does have underlying history of diastolic heart failure which patient underwent Echocardiogram (12/20/2024 [facility]) revealing TDS, EF 65%, stage I diastolic dysfunction, RV size and function is normal. mild LA dilation. Both AV and MV are opening adequately, mild TR with RVSP 26 mmhg. At present, BNP level was found elevated at 319 however chest imaging reveals no evidence for vascular congestion. 12-lead electrocardiogram upon arrival revealed sinus tachycardia at 109 bpm with no acute ischemic changes. Initial HS troponin level was found unremarkable at 16. As the patient presented with tachycardia and previously known history of diastolic heart failure, Cardiology services have now been involved for cardiac aspects of care. 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 Left Atrium: Left atrium is mildly dilated. No , No MS. Trace MR. Mild TR with RVSP 32 mmHg Echocardiogram: (06/09/2024 [facility]) revealed Left ventricle: Left ventricle is normal-sized with normal systolic function. LVEF was around 55%. There was no gross wall motion abnormality. Right ventricle was normal-sized with normal systolic function. Both atria were normal-sized. Aortic valve: Aortic valve is trileaflet. There was no aortic stenosis/insufficiency. There was no mitral regurgitation. There was trivial tricuspid regurgitation. Pulmonary valve was not well visualized. Right ventricular systolic pressure was around 30 mm Hg. There was no pericardial effusion Echocardiogram: (12/20/2024 [facility]) revealed TDS, EF 65%, stage I diastolic dysfunction, RV size and function is normal. mild LA dilation. Both AV and MV are opening adequately, mild TR with RVSP 26 mmhg. BLE Venous Duplex revealed IMPRESSION: 1. There is no sonographic evidence for DVT in the lower extremities. VQ Scan revealed IMPRESSION: 1. Normal perfusion. No evidence of pulmonary embolism. 2. Abnormal ventilation is likely due to multifocal airspace disease seen on recent radiographs. Symptomatic hypoglycemia, resolved Sepsis, in the setting of pneumonia/complicated UTI Sinus tachycardia, likely secondary to the above Abnormal D-Dimer, PE/DVT ruled out Chronic diastolic heart failure Baseline poor functional status Old history of previous CVA Residual left hemiparesis Chronic kidney disease Diabetes mellitus II Hyperlipidemia Hypertension Hyperkalemia CARDIAC SUGGESTIONS FOR MANAGEMENT: Awaiting ordered 2D Echocardiogram Fluid volume management per Nephrology secondary to renal status Proceed with close observation for overt signs of fluid overload Proceed with strict intakes, outputs, and daily weights Proceed with close rate and rhythm surveillance Sustain Magnesium level greater than 2.0 Sustain Potassium level greater than 4.0 Follow up renal function and electrolytes Supplemental oxygen as warranted PRN Lopressor (IV) for rate control On IV antibiotic therapy Management of diabetes mellitus/hypoglycemia as per primary team Management of sepsis (pneumonia/UTI) as per primary team Management of chronic kidney disease as per Nephrology Management of co-morbidities per primary team Proceed with close hemodynamic surveillance Proceed with optimized blood pressure control Transfuse to sustain HGB level above 7.0 Management in telemetry Follow up moving consultant recommendations Will proceed to follow from a cardiac perspective Further recommendations per clinical progression All available diagnostic labs, EKG's, and images were personally reviewed Patient's status, findings, and plan of care was reviewed and discussed with supervising physician Dr. Zee, who is in agreement with current plan of care. Plan of care discussed with and agreed upon by patient / primary RN Prognosis: Guarded Thank you for allowing me to participate in the care of this patient. Further recommendations based on patients clinical course and progression, primary attending, and other consultants. Will continue to follow with primary attending. If you have any questions or concerns, please do not hesitate to contact me. A total of 75 minutes was spent reviewing the patient record, examining the patient, making a diagnostic and therapeutic plan, discussing this plan with medical personnel, following up on diagnostic studies and following the patient for clinical stability excluding any and all procedures. At least 50% of this time was spent in direct, [id number] Plan discussed with: Patient (Patient and Primary RN ) NACHOMAYCOLABILIO SANCHEZ Jan 01, 2025 06:07
--- NOTE | 2025-01-01 06:48 | DVHPN2 ---
Progress Note - Dictate Date Seen: Jan 01, 2025 Medical Necessity Reason Pt with a Central, PICC or Fol: Yes The following are medically ne: Smith Catheter Reason for smith catheter: Strict I&O Subjective tachypnea has resolved spoke with patients family at bedside vital signs Vital Sign Date Time Temp Pulse Resp B/P (MAP) Pulse Ox O2 Delivery O2 Flow Rate FiO2 01/01/25 06:14 91 20 99 01/01/25 06:08 Nasal Cannula 2.0 01/01/25 06:08 28 01/01/25 05:00 97.7 100/78 (85) 97.7 Total Intake and Output 12/31/24 12/31/24 01/01/25 15:00 23:00 07:00 Intake Total 630 ml 386 ml Output Total 850 ml 350 ml Balance -220 ml 36 ml medications Current Medications Medications Dose Ordered Sig/Wai Route Start Time Stop Time Status Last Admin Dose Admin Acetaminophen/ Hydrocodone Bitart 1 tab Q4HP PRN PO 12/29/24 09:15 Ondansetron HCl 4 mg Q4HP PRN IV 12/29/24 09:15 Docusate Sodium 100 mg BIDPRN PRN PO 12/29/24 09:15 Zinc Sulfate 220 mg DAILY PO 12/29/24 10:00 12/31/24 10:14 220 MG Ascorbic Acid 500 mg BID PO 12/29/24 10:00 12/31/24 22:23 500 MG Multivitamins 1 tab DAILY PO 12/29/24 10:00 12/31/24 10:15 1 TAB Acetaminophen 650 mg Q6HP PRN PO 12/29/24 09:15 12/30/24 08:58 650 MG Nitroglycerin 0.4 mg Q5MINP PRN SL 12/29/24 09:15 Morphine Sulfate 2 mg Q30M PRN IV 12/29/24 09:15 Amlodipine Besylate 10 mg DAILY PO 12/29/24 10:00 12/31/24 10:21 10 MG Tamsulosin HCl 0.4 mg QPM PO 12/29/24 18:00 12/31/24 17:24 0.4 MG Metoprolol Tartrate 5 mg Q4HPRN PRN IV 12/29/24 15:30 12/30/24 08:57 5 MG Insulin Human Regular IQ4HR SC 12/30/24 12:00 2/7/25 00:11 2 UNITS Dextrose 50 ml UD PRN IV 12/30/24 09:45 Albuterol 2.5 mg Q4HR NEB 12/30/24 14:00 01/01/25 06:08 2.5 MG Ipratropium [place] 0.5 mg Q4HR NEB 12/30/24 14:00 01/01/25 06:08 0.5 MG Lisinopril 20 mg DAILY PO 12/30/24 12:45 12/31/24 10:20 20 MG Diagnostic Test (Pha) 1 strip IQ4HR 12/30/24 16:00 01/01/25 03:50 1 STRIP Piperacillin Sod/ Tazobactam Sod 100 ml @ 25 mls/hr Q8HR IV 12/31/24 22:00 UNV Azithromycin 250 ml @ 125 mls/hr DAILY IV 01/01/25 10:00 Piperacillin Sod/ Tazobactam Sod 100 ml @ 25 mls/hr Q8HR IV 12/31/24 22:00 12/31/24 22:25 25 MLS/HR Furosemide 40 mg BID PO 12/31/24 19:15 12/31/24 22:24 40 MG Atorvastatin Calcium 20 mg HS PO 01/01/25 22:00 objective Gen: NAD HEENT: NC,AT Lungs: rales Cardiac: Tachycardia, no murmur Abd: soft, no tenderness Ext: no edema + Smith laboratory and microbiology Laboratory Tests 12/31/24 14:33 Test 12/31/24 14:33 Range/Units Serum Glucose 161 H 74-106 mg/dL Assessment/Plan Assessment: LISANDRO: cardiorenal syndrome + Sepsis CKD III. (Baseline Cr 1.6 mg/dl on May/2024) Acute hypoxic respiratory failure on supplemental oxygen Sepsis secondary to pneumonia Acute on Chronic diastolic CHF Hypoglycemia lactic acidosis Hyperkalemia, resolved DM HTN HLD h/o CVA with residual left sided weakness bed bound Plan: Continue Lasix 40 mg IV BID Labs from today are pending Continue IV antibiotics Pulmonary consult daily BMP, and Mg continue Amlodipine 10 mg PO daily strict I&Os Plan discussed with: Patient EBER ABBOTT MD Jan 01, 2025 06:47
[2025-01-01 08:39] LABS: Anion Gap 11 (5-15); Chloride 107 mmol/L (98-107); Potassium 4.4 mmol/L (3.5-5.1)
[2025-01-01 08:42] LABS: Basophils # (auto) 0.1 10 ^3/uL (0-0.2); Eosinophils # (auto) 0 10 ^3/uL (0-0.8); Hematocrit 25.2 % (41.0-53.0); Monocytes # (auto) 0.9 10 ^3/uL (0-1.3); Platelet Count (auto) 170 10^3/uL (140-450)
[2025-01-01 08:43] LABS: Calcium 8.2 mg/dL (8.7-10.4); Carbon Dioxide 15 mmol/L (20-31); Sodium 133 mmol/L (136-145)
[2025-01-01 08:44] LABS: Glucose 163 mg/dL (74-106)
[2025-01-01 08:45] LABS: BUN/Creatinine Ratio 23.6 (10.0-20.0)
[2025-01-01 08:48] LABS: Basophils % (auto) 0.6 % (0.0-2.0); Eosinophils % (auto) 0.3 % (0.0-7.0); Hemoglobin 8.1 g/dL (13.5-17.5); Lymphocytes # (auto) 1.8 10 ^3/uL (0.4-5.4); Lymphocytes % (auto) 12.3 % (10.0-50.0); Mean Corpuscular Hemoglobin 29.6 pg (28.0-32.0); Mean Corpuscular Hgb Conc. 32.2 g/dL (32.0-36.0); Mean Corpuscular Volume 92.1 fL (80.0-100.0); Monocytes % (auto) 5.9 % (0.0-12.0); Neutrophils # (auto) 11.9 10 ^3/uL (1.6-8.6); Neutrophils % (auto) 80.9 % (37.0-80.0); Nucleated Red Blood Cells % 0.1 %; Red Blood Cells 2.73 10^6/uL (4.5-5.90); Red Cell Distribution Width 17.4 % (11.8-14.3); White Blood Cell 14.7 10^3/uL (4.4-10.8)
[2025-01-01 08:56] LABS: Blood Urea Nitrogen 59 mg/dL (9-23)
--- NOTE | 2025-01-01 09:17 | DVHPN2 ---
Progress Note - Dictate Date Seen: Jan 01, 2025 Medical Necessity Reason Pt with a Central, PICC or Fol: Yes The following are medically ne: Smith Catheter Reason for smith catheter: Strict I&O vital signs Vital Sign Date Time Temp Pulse Resp B/P (MAP) Pulse Ox O2 Delivery O2 Flow Rate FiO2 01/01/25 09:00 98.1 93 20 130/82 (98) 95 98.1 01/01/25 06:08 Nasal Cannula 2.0 01/01/25 06:08 28 Total Intake and Output 12/31/24 12/31/24 01/01/25 15:00 23:00 07:00 Intake Total 630 ml 486 ml Output Total 850 ml 350 ml Balance -220 ml 136 ml medications Current Medications Medications Dose Ordered Sig/Wai Route Start Time Stop Time Status Last Admin Dose Admin Acetaminophen/ Hydrocodone Bitart 1 tab Q4HP PRN PO 12/29/24 09:15 Ondansetron HCl 4 mg Q4HP PRN IV 12/29/24 09:15 Docusate Sodium 100 mg BIDPRN PRN PO 12/29/24 09:15 Zinc Sulfate 220 mg DAILY PO 12/29/24 10:00 12/31/24 10:14 220 MG Ascorbic Acid 500 mg BID PO 12/29/24 10:00 12/31/24 22:23 500 MG Multivitamins 1 tab DAILY PO 12/29/24 10:00 12/31/24 10:15 1 TAB Acetaminophen 650 mg Q6HP PRN PO 12/29/24 09:15 12/30/24 08:58 650 MG Nitroglycerin 0.4 mg Q5MINP PRN SL 12/29/24 09:15 Morphine Sulfate 2 mg Q30M PRN IV 12/29/24 09:15 Amlodipine Besylate 10 mg DAILY PO 12/29/24 10:00 12/31/24 10:21 10 MG Tamsulosin HCl 0.4 mg QPM PO 12/29/24 18:00 12/31/24 17:24 0.4 MG Metoprolol Tartrate 5 mg Q4HPRN PRN IV 12/29/24 15:30 12/30/24 08:57 5 MG Insulin Human Regular IQ4HR SC 12/30/24 12:00 01/01/25 08:10 3 UNITS Dextrose 50 ml UD PRN IV 12/30/24 09:45 Albuterol 2.5 mg Q4HR NEB 12/30/24 14:00 01/01/25 09:14 2.5 MG Ipratropium [place] 0.5 mg Q4HR NEB 12/30/24 14:00 01/01/25 09:14 0.5 MG Lisinopril 20 mg DAILY PO 12/30/24 12:45 12/31/24 10:20 20 MG Diagnostic Test (Pha) 1 strip IQ4HR 12/30/24 16:00 01/01/25 08:10 1 STRIP Piperacillin Sod/ Tazobactam Sod 100 ml @ 25 mls/hr Q8HR IV 12/31/24 22:00 UNV Azithromycin 250 ml @ 125 mls/hr DAILY IV 01/01/25 10:00 Piperacillin Sod/ Tazobactam Sod 100 ml @ 25 mls/hr Q8HR IV 12/31/24 22:00 01/01/25 06:51 25 MLS/HR Furosemide 40 mg BID PO 12/31/24 19:15 12/31/24 22:24 40 MG Atorvastatin Calcium 20 mg HS PO 01/01/25 22:00 objective General Appearance: alert, no distress HEENT: EOMI, PERRLA, normal external inspect of ears, no icterus, no nasal drainage Neck: no carotid bruit, no jugular venous distention (JVD), no lymphadenopathy Chest: normal thorax Respiratory: clear to auscultation, normal air movement Cardiovascular: regular rate and rhythm, no diastolic murmur, no jugular venous distention (JVD), no rub, no systolic murmur Abdominal: soft, no hepatomegaly, no mass, no splenomegaly, no tenderness Genitourinary: grossly normal external Musculoskeletal: no joint tenderness, no swelling Extremities: normal pulses, no calf tenderness, no clubbing, no cyanosis, no edema Skin: no bruising, no jaundice, no rash Neurological: alert, No focal deficit laboratory and microbiology Laboratory Tests 01/01/25 07:31 Test 01/01/25 07:31 Range/Units Serum Glucose 163 H 74-106 mg/dL Problem List 1. Sepsis Monitor, IV fluids, IV abx, cardiology consult 2. Hypoglycemia Monitor, hypoglycemia treatment 3. DM II Monitor, wound care consult 4. Pneumonia Monitor, IV abx 5. Bed bound Monitor 6. Acute cystitis w/o hematuria Monitor, IV abx 7. Hx of CVA with residual deficits Monitor 8. CKD3b Monitor, nephrology consult 9. Acute hypoxic respiratory failure Monitor, med-neb treatments, pulmonary consult, IV antibiotics Assessment/Plan Subjective Patient is much more awake and alert today. Objective Patient was admitted for ALOC and sepsis. Patient is very cachectic. Patient has severe protein calorie malnutrition. Urine culture is growing some yeast. Patient was seen by infectious disease. Patient is currently on Rocephin, Zosyn, and azithromycin for possible aspiration pneumonia. Patient did have an additional incidence of hypoglycemia. Patient is now tolerating a p.o. diet. Plan Continue current treatment. Bacteremia to be ruled out. Continue IV antibiotics. Monitor daily labs. Plan discussed with: Patient, Other RAÚL STEEL NP Jan 01, 2025 09:17
[2025-01-01] MEDS ORDERED: FLUCONAZOLE 200MG/100ML 100 ML IV SCH (10:00)
[2025-01-01] MEDS ORDERED: VANCOMYCIN PER PHARMACY 0 MG IV SCH (10:00)
[2025-01-01] MEDS: AZITHROMYCIN 500MG/ 250ML 250 ML IV SCH (11:56)
--- NOTE | 2025-01-01 19:47 | DVHSR ---
APPROVED REPORT EXAM: Two-dimensional and M-mode echocardiogram with Doppler and color Doppler. Blood Pressure: 168/102 mmHg INDICATION Heart Failure RISK FACTORS Height: 5'8, Weight: 100 DIMENSIONS LVDd3.9 (3.8-5.7cm)LA (2D)4.1 (1.9-4.0cm)Aortic Root3.0 (2.0-3.7cm) LVDs2.6 (2.5-4.0cm)LA (MM) (1.9-4.0cm)Aortic Cusp Exc1.3 (1.5-2.0cm) EF (%) 60.0 (55-70%)Rt. Atrium2.2 (1.9-4.0cm)Asc. Aorta cm IVSd0.7 (0.7-1.1cm)RV (D)2.3 (1.8-2.4cm) PWd0.9 (0.7-1.1cm) Mitral Valve MitralMitral Stenosis E wave1.31m/sMV Mean GR.mmHg A wave1.17m/sMV Peak GR.71mmHg E/A ratio1.12D MVAcm2 DECEL [id number] 1/2 [place] Aortic Valve Aortic ValveAortic Stenosis V11.10m/Riky Mean GR.6mmHg V21.52m/Riky Peak GR.9mmHg LVOT Diameter1.9 (1.8-2.4cm)Doppler AVA2.05cm2 Pulmonic Valve V21.03m/s Tricuspid Valve TR Velocity2.53m/s [id number] Other Information Quality : Technically LimitedRhythm : Technically limited study due to body habitus.patient position. pt breathing heavy Conclusion Left ventricle: Left ventricle was normal-sized with normal systolic function. LVEF was 64%. There was no gross wall motion abnormality. Right ventricle was normal-sized with normal systolic function. Both atria were normal-sized. Aortic valve was trileaflet. There was no aortic insufficiency/stenosis. There was trivial mitral/t ricuspid regurgitation. There was no pulmonary valve insufficiency. Right ventricular systolic pressure was assessed at 34 mm Hg. There was no pericardial effusion.
[2025-01-01] MEDS: ATORVASTATIN 20 MG TAB PO SCH (21:11)
--- NOTE | 2025-01-01 21:50 | DVHPN2 ---
AL ROTH RESIDENT 01/01/252149: Consult Progress Note Date Seen: Jan 01, 2025 Subjective Patient reports: No new complaints Other Systems: No new complaints, patient denied any fever, shortness of breath, cough or sputum production. Continue vent 2-3 L oxygen via nasal cannula. Physical Exam General Appearance: Cooperative. Well developed. Well nourished. NAD Head Exam: Normal inspection Neck Exam: Normal inspection. Non-tender. Normal alignment Pulmonary/Respiratory: Chest non-tender. Bilateral lung base crackles. Cardiovascular/Chest: Regular rate and rhythm. No murmurs. No JVD. Peripheral Pulses: 2+ Radial (R). 2+ Radial (L). 2+ Pedal (R). 2+ Pedal (L) Abdominal Exam: Normal bowel sounds. Soft. Nontender. No hepatospenomegaly. No masses Ankle Exam: Negative ankle edema Lower extremities: Negative lower extremity edema Neuro/Mental Status: A&O x4. Coherent Thoughts/Psych: Normal thought pattern. Appropriate mood and affect. Good judgement and insight Appearance: In no acute distress Skin Exam: Normal inspection. Normal color. Warm. Dry Objective vital signs Vital Sign Date Time Temp Pulse Resp B/P (MAP) Pulse Ox O2 Delivery O2 Flow Rate FiO2 01/01/25 21:12 140/87 01/01/25 21:00 98.2 106 18 100 98.2 01/01/25 19:42 Nasal Cannula* 3 32 Total Intake and Output 12/31/24 12/31/24 01/01/25 15:00 23:00 07:00 Intake Total 630 ml 486 ml Output Total 850 ml 350 ml Balance -220 ml 136 ml medications Current Medications Medications Dose Ordered Sig/Wai Route Start Time Stop Time Status Last Admin Dose Admin Acetaminophen/ Hydrocodone Bitart 1 tab Q4HP PRN PO 12/29/24 09:15 Ondansetron HCl 4 mg Q4HP PRN IV 12/29/24 09:15 Docusate Sodium 100 mg BIDPRN PRN PO 12/29/24 09:15 Zinc Sulfate 220 mg DAILY PO 12/29/24 10:00 01/01/25 09:52 220 MG Ascorbic Acid 500 mg BID PO 12/29/24 10:00 01/01/25 21:11 500 MG Multivitamins 1 tab DAILY PO 12/29/24 10:00 01/01/25 09:53 1 TAB Acetaminophen 650 mg Q6HP PRN PO 12/29/24 09:15 12/30/24 08:58 650 MG Nitroglycerin 0.4 mg Q5MINP PRN SL 12/29/24 09:15 Morphine Sulfate 2 mg Q30M PRN IV 12/29/24 09:15 Amlodipine Besylate 10 mg DAILY PO 12/29/24 10:00 01/01/25 09:53 10 MG Tamsulosin HCl 0.4 mg QPM PO 12/29/24 18:00 01/01/25 17:09 0.4 MG Metoprolol Tartrate 5 mg Q4HPRN PRN IV 12/29/24 15:30 12/30/24 08:57 5 MG Insulin Human Regular IQ4HR SC 12/30/24 12:00 01/01/25 20:55 3 UNITS Dextrose 50 ml UD PRN IV 12/30/24 09:45 Albuterol 2.5 mg Q4HR NEB 12/30/24 14:00 01/01/25 19:42 2.5 MG Ipratropium [place] 0.5 mg Q4HR NEB 12/30/24 14:00 01/01/25 19:42 0.5 MG Lisinopril 20 mg DAILY PO 12/30/24 12:45 01/01/25 09:53 20 MG Diagnostic Test (Pha) 1 strip IQ4HR 12/30/24 16:00 01/01/25 20:55 1 STRIP Piperacillin Sod/ Tazobactam Sod 100 ml @ 25 mls/hr Q8HR IV 12/31/24 22:00 UNV Azithromycin 250 ml @ 125 mls/hr DAILY IV 01/01/25 10:00 01/01/25 11:56 125 MLS/HR Piperacillin Sod/ Tazobactam Sod 100 ml @ 25 mls/hr Q8HR IV 12/31/24 22:00 01/01/25 21:13 25 MLS/HR Furosemide 40 mg BID PO 12/31/24 19:15 01/01/25 21:12 40 MG Atorvastatin Calcium 20 mg HS PO 01/01/25 22:00 01/01/25 21:11 20 MG laboratory and microbiology Laboratory Tests 01/01/25 07:31 Test 01/01/25 07:31 Range/Units Serum Glucose 163 H 74-106 mg/dL Problem List/Assessment/Plan Problem List/Assessment/Plan Sepsis in setting of pneumonia likely g negative Acute complicated UTI Hypoglycemia Ruled out PE Chronic diastolic heart failure History of CVA with residual left-sided weakness CKD stage 3 Diabetes mellitus type 2 Hypertension Hyperlipidemia Bed-bound Plan/recommendation Dr Michael -continue IV antibiotic with Zosyn and azithromycin given likely pneumonia is related community-acquired, given MRSA negatives we will discontinue vancomycin. Discontinue fluconazole as well. -MRSA negative -blood culture(12/29/24): Negative, no growth after 48 hours of incubation -urine culture from 12/29/2024: Yeast, not Diana albicans, likely contamination. No need for antifungal. -pending respiratory culture, influenza and COVID swab. -reviewed chest x-ray which showed left-sided lung obesity. -procalcitonin -on oxygen via nasal cannula, currently at 3-5 L. -continue IV fluid, continue to monitor urine output. -rest of the management as per hospitalist. Plan discussed with: Patient, Other (RN) MOISE MICHAEL MD 01/03/25 1550: Consult Progress Note Problem List/Assessment/Plan Problem List/Assessment/Plan _ Attending Addendum: Case discussed with Dr. Roth. at the time of visit. Seen by Dr Roth and reviewed assessment and plan . patient is a 44 year old male with a past medical history of cerebral palsy and related mental delay with bedridden diabetes and has a history of stroke with residual deficit CKD and stage 3 obstructive uropathy , diastolic CHF , hypertension , hyperlipidemia, hydronephrosis, anemia and was brought into the hospital with altered mental status and was recently admitted to [facility] a week ago with hyperglycemia and concerned as well of LISANDRO . Patient was treated for a UTI at that hospitalization and now presents with SOB and hypoglycemia with blood sugar in the 40s and patient is requiring 3-5 liters of nasal canula . Chest xray shows left lung opacities with concern for pneumonia and temp has ranged from 100.3- 98.3 and is tachycardic . overall tachycardia , fever and BP has been improving during this hospital course. Surgical history include ureteral dilation , review of systems . patient indorses SOB and cough , no sputum production , no diarrhea and no chest pains . Temperature of 97.1 currently with pulse 88 and BP 107/62 and setting 100% on 2 liters nasal canula. patient is altert and oriented and able to answer short questions , crackles in bases bilaterally . whitecount 13.7 that has come down from 20.7 on admission and platelet has come down to 148 from 210. Urine cultures shows deyanira , patient came in with a smith catheter , blood cultures is no growth to date , MRSA nares is negative . chest xray shows left lung hezy opacities which may represent pneumonia and doppler ultrasound showed no signs of DVT in lower extremities . plan would be to cover empirically for hospital aquired pneumonia due to recent [facility] [place] visit , would forgo vancomycin due to negative MRSA nares , would continue Zosyn and start azithromycin for hospital aquired pneumonia coverage given the multifocal nature of the opacities , no need for fluconazole instead would recommend exchange of smith catheter if patient still requires smith . check procal serotinum level , check sputum culture that may need inducing . follow up on influenza, covid and RSV swab testing . 01/01: patient was unable to produce any sputum sample , unclear if patient is just unable to understand the request . still SOB however is setting 100% on 3 liters nasal canula . crackles in lungs bilaterally , mild edema in the legs. whitecount continues to come down . plan will be to continue Zosyn and azithromycin , acquire and induced sputum culture Assessment and Plan reviewed with Dr. Roth and agree with finding written above. 12 point review of systems was conducted AL ROTH RESIDENT Jan 01, 2025 21:50 MOISE MICHAEL MD Jan 03, 2025 15:50
--- NOTE | 2025-01-01 23:31 | DVHPN2 ---
Progress Note - Dictate Date Seen: Jan 01, 2025 Medical Necessity Reason Pt with a Central, PICC or Fol: Yes The following are medically ne: Smith Catheter Reason for smith catheter: Strict I&O Subjective Patient seen and examined at bedside. Remains on supplemental oxygen Overnight events reviewed. vital signs Vital Sign Date Time Temp Pulse Resp B/P (MAP) Pulse Ox O2 Delivery O2 Flow Rate FiO2 01/01/25 22:49 98 22 100 01/01/25 22:43 Nasal Cannula* 3 32 01/01/25 21:12 140/87 01/01/25 21:00 98.2 98.2 Total Intake and Output 12/31/24 12/31/24 01/01/25 15:00 23:00 07:00 Intake Total 630 ml 486 ml Output Total 850 ml 350 ml Balance -220 ml 136 ml medications Current Medications Medications Dose Ordered Sig/Wai Route Start Time Stop Time Status Last Admin Dose Admin Acetaminophen/ Hydrocodone Bitart 1 tab Q4HP PRN PO 12/29/24 09:15 Ondansetron HCl 4 mg Q4HP PRN IV 12/29/24 09:15 Docusate Sodium 100 mg BIDPRN PRN PO 12/29/24 09:15 Zinc Sulfate 220 mg DAILY PO 12/29/24 10:00 01/01/25 09:52 220 MG Ascorbic Acid 500 mg BID PO 12/29/24 10:00 01/01/25 21:11 500 MG Multivitamins 1 tab DAILY PO 12/29/24 10:00 01/01/25 09:53 1 TAB Acetaminophen 650 mg Q6HP PRN PO 12/29/24 09:15 12/30/24 08:58 650 MG Nitroglycerin 0.4 mg Q5MINP PRN SL 12/29/24 09:15 Morphine Sulfate 2 mg Q30M PRN IV 12/29/24 09:15 Amlodipine Besylate 10 mg DAILY PO 12/29/24 10:00 01/01/25 09:53 10 MG Tamsulosin HCl 0.4 mg QPM PO 12/29/24 18:00 01/01/25 17:09 0.4 MG Metoprolol Tartrate 5 mg Q4HPRN PRN IV 12/29/24 15:30 12/30/24 08:57 5 MG Insulin Human Regular IQ4HR SC 12/30/24 12:00 2/7/25 20:55 3 UNITS Dextrose 50 ml UD PRN IV 12/30/24 09:45 Albuterol 2.5 mg Q4HR NEB 12/30/24 14:00 01/01/25 22:43 2.5 MG Ipratropium Only 0.5 mg Q4HR NEB 12/30/24 14:00 01/01/25 22:43 0.5 MG Lisinopril 20 mg DAILY PO 12/30/24 12:45 01/01/25 09:53 20 MG Diagnostic Test (Pha) 1 strip IQ4HR 12/30/24 16:00 01/01/25 20:55 1 STRIP Piperacillin Sod/ Tazobactam Sod 100 ml @ 25 mls/hr Q8HR IV 12/31/24 22:00 UNV Azithromycin 250 ml @ 125 mls/hr DAILY IV 01/01/25 10:00 01/01/25 11:56 125 MLS/HR Piperacillin Sod/ Tazobactam Sod 100 ml @ 25 mls/hr Q8HR IV 12/31/24 22:00 01/01/25 21:13 25 MLS/HR Furosemide 40 mg BID PO 12/31/24 19:15 01/01/25 21:12 40 MG Atorvastatin Calcium 20 mg HS PO 01/01/25 22:00 01/01/25 21:11 20 MG objective Gen.: Patient lying in bed in no apparent distress. On supplemental oxygen. Head: Normocephalic, atraumatic. Eyes: EOMI/PERRLA. Ears: Normal hearing. Normal anatomy. Neck/trachea: Trachea midline, supple. Nose: Normal external anatomy. Mouth: Moist mucous membranes. Chest: Decreased air entry bilaterally. No wheezing or rhonchi. Cardiovascular: Positive S1, positive S2. Regular rate and rhythm. Abdomen: Positive bowel sounds in all 4 quadrants. Soft, non-tender, non- distended. : Deferred. Rectal: Deferred. Skin: Warm, dry. Intact. Extremities: 2+ radial pulses bilaterally. No lower extremity edema. Neuro: Awake, alert, oriented x3. No gross motor or sensory deficits. Cranial nerves II through XII intact. Gait not assessed. laboratory and microbiology Laboratory Tests 01/01/25 07:31 Test 01/01/25 07:31 Range/Units Serum Glucose 163 H 74-106 mg/dL Assessment/Plan Impression: Acute hypoxic respiratory failure Dependence on supplemental oxygen Sepsis DM type II w/ hypoglycemia Urinary tract infection CVA with left-sided deficits Pneumonia, likely gram negative Cachexia, BMI 13.9 Events: Remains on supplemental oxygen, 3 LPM NC Taper O2 as tolerated Head of bed elevation Aspiration precautions Continue bronchodilators Continue antibiotics Blood cultures show no growth for 72 hours ID recommendations appreciated Urine cultures grew yeast. Monitor WBC, 13.7 -->14.7 K Accu-Cheks, ISS. Diurese to euvolemia w/ Lasix BID Monitor renal function. Monitor electrolytes. Supplement as necessary. Monitor ins and outs. Nephrology recommendations appreciated Labs and imaging reviewed. Rest of plan as noted below. Plan: Supplemental oxygen Titrate to keep O2 sats above 92%. Head of bed elevation Aspiration precautions. NTS Continue bronchodilators. Continue antibiotics Follow up cultures Accu-Cheks for glycemic monitoring Diurese to euvolemia w/ Lasix Monitor renal function. Monitor electrolytes. Supplement as necessary. Monitor ins and outs. DVT prophylaxis. Prognosis: Guarded given patient's multiple co-morbidities. Rest of plan per hospitalist and other consultants. Thank you, ANITHA Vergara, for allowing me to participate in this patient's care. Further recommendations will depend on the patient's clinical course. Please do not hesitate to contact me if you have any questions or concerns. This medical document was created using an electronic medical record system with [employer] dictation system. Although these documentations are being carefully reviewed, there may still be some phonetic and typographical changes. The errors are purely typographical, due to imperfection on the software program, and do not reflect any compromise in the patient's medical care. Plan discussed with: Patient, Other (CARMEN Webb) EDGARDO CULLEN MD Jan 01, 2025 23:31
[2025-01-02] VITALS (26 sets, daily range): BP systolic 114–135; BP diastolic 66–80; PULSE 76–105; RESP 16–24; TEMP 97.6–99; O2SAT 95–100
[2025-01-02 03:53] LABS: Basophils # (auto) 0.1 10 ^3/uL (0-0.2); Eosinophils # (auto) 0 10 ^3/uL (0-0.8); Nucleated Red Blood Cells % 0.1 %; Red Blood Cells 2.25 10^6/uL (4.5-5.90)
[2025-01-02 03:55] LABS: Basophils % (auto) 0.7 % (0.0-2.0); Eosinophils % (auto) 0.1 % (0.0-7.0); Hematocrit 20.7 % (41.0-53.0); Lymphocytes % (auto) 21.8 % (10.0-50.0); Mean Corpuscular Hemoglobin 30.3 pg (28.0-32.0); Mean Corpuscular Hgb Conc. 32.9 g/dL (32.0-36.0); Mean Corpuscular Volume 92.1 fL (80.0-100.0); Monocytes # (auto) 1.1 10 ^3/uL (0-1.3); Monocytes % (auto) 8.2 % (0.0-12.0); Neutrophils # (auto) 9.4 10 ^3/uL (1.6-8.6); Neutrophils % (auto) 69.2 % (37.0-80.0); Platelet Count (auto) 148 10^3/uL (140-450); Red Cell Distribution Width 17.5 % (11.8-14.3); White Blood Cell 13.5 10^3/uL (4.4-10.8)
[2025-01-02 04:01] LABS: Hemoglobin 6.8 g/dL (13.5-17.5)
[2025-01-02 04:06] LABS: Anion Gap 12 (5-15); Potassium 4.1 mmol/L (3.5-5.1)
[2025-01-02 04:12] LABS: BUN/Creatinine Ratio 24.2 (10.0-20.0); Glucose 103 mg/dL (74-106)
[2025-01-02 04:27] LABS: Blood Urea Nitrogen 59 mg/dL (9-23); Calcium 7.9 mg/dL (8.7-10.4); Carbon Dioxide 15 mmol/L (20-31); Chloride 109 mmol/L (98-107); Sodium 136 mmol/L (136-145)
--- NOTE | 2025-01-02 12:33 | DVHPN2 ---
Progress Note - Dictate Date Seen: Jan 02, 2025 Medical Necessity Reason Pt with a Central, PICC or Fol: Yes The following are medically ne: Smith Catheter Reason for smith catheter: Strict I&O vital signs Vital Sign Date Time Temp Pulse Resp B/P (MAP) Pulse Ox O2 Delivery O2 Flow Rate FiO2 01/02/25 12:20 94 20 132/66 96 2.0 28 01/02/25 10:23 Nasal Cannula* 01/02/25 05:00 97.8 97.8 Total Intake and Output 01/01/25 01/01/25 01/02/25 15:00 23:00 07:00 Intake Total 250 ml 1185 ml 230 ml Output Total 1000 ml 100 ml Balance 250 ml 185 ml 130 ml medications Current Medications Medications Dose Ordered Sig/Wai Route Start Time Stop Time Status Last Admin Dose Admin Acetaminophen/ Hydrocodone Bitart 1 tab Q4HP PRN PO 12/29/24 09:15 Ondansetron HCl 4 mg Q4HP PRN IV 12/29/24 09:15 Docusate Sodium 100 mg BIDPRN PRN PO 12/29/24 09:15 Zinc Sulfate 220 mg DAILY PO 12/29/24 10:00 01/02/25 10:26 220 MG Ascorbic Acid 500 mg BID PO 12/29/24 10:00 01/02/25 10:26 500 MG Multivitamins 1 tab DAILY PO 12/29/24 10:00 01/02/25 10:26 1 TAB Acetaminophen 650 mg Q6HP PRN PO 12/29/24 09:15 12/30/24 08:58 650 MG Nitroglycerin 0.4 mg Q5MINP PRN SL 12/29/24 09:15 Morphine Sulfate 2 mg Q30M PRN IV 12/29/24 09:15 Amlodipine Besylate 10 mg DAILY PO 12/29/24 10:00 01/02/25 10:26 10 MG Tamsulosin HCl 0.4 mg QPM PO 12/29/24 18:00 01/01/25 17:09 0.4 MG Metoprolol Tartrate 5 mg Q4HPRN PRN IV 12/29/24 15:30 12/30/24 08:57 5 MG Insulin Human Regular IQ4HR SC 12/30/24 12:00 01/02/25 12:09 6 UNITS Dextrose 50 ml UD PRN IV 12/30/24 09:45 Albuterol 2.5 mg Q4HR NEB 12/30/24 14:00 01/02/25 10:18 2.5 MG Ipratropium [place] 0.5 mg Q4HR NEB 12/30/24 14:00 01/02/25 10:18 0.5 MG Lisinopril 20 mg DAILY PO 12/30/24 12:45 01/02/25 10:27 20 MG Diagnostic Test (Pha) 1 strip IQ4HR 12/30/24 16:00 01/02/25 12:08 1 STRIP Piperacillin Sod/ Tazobactam Sod 100 ml @ 25 mls/hr Q8HR IV 12/31/24 22:00 UNV Azithromycin 250 ml @ 125 mls/hr DAILY IV 01/01/25 10:00 01/02/25 10:24 125 MLS/HR Piperacillin Sod/ Tazobactam Sod 100 ml @ 25 mls/hr Q8HR IV 12/31/24 22:00 01/02/25 06:25 25 MLS/HR Furosemide 40 mg BID PO 12/31/24 19:15 01/02/25 10:26 40 MG Atorvastatin Calcium 20 mg HS PO 01/01/25 22:00 01/01/25 21:11 20 MG laboratory and microbiology Laboratory Tests 01/02/25 03:11 Test 01/02/25 03:11 Range/Units Serum Glucose 103 74-106 mg/dL Assessment/Plan Subjective Seen and examined at the bedside within telemetry. Maintaining sinus rhythm upon telemetry review. Hemodynamics remain stable. Chart reviewed. ASSESSMENT: This is a 44-year old male known outside to our practice who initially presented for altered mental status found to be hypoglycemic with initial serum glucose level of 44 which later improved status post Dextrose administration. It is of note, patient is on Glipizide outpatient which could have attributed to the underlying hypoglycemia. Patient was also found tachycardic and febrile with highest documented temperature of 101.4 in the setting of sepsis from underlying pneumonia with superimposing urinary tract infection as initial WBC count was found elevated at 16.5 with peak lactic acid level of 2.7. Initial creatinine level found elevated at 2.15 with an initial potassium level of 5.5. Initial magnesium level found to be 1.7. TSH level was found normal at 4.37. D-Dimer did reveal elevation at 1.00. Patient does have underlying history of diastolic heart failure which patient underwent Echocardiogram (12/20/2024 [facility]) revealing TDS, EF 65%, stage I diastolic dysfunction, RV size and function is normal. mild LA dilation. Both AV and MV are opening adequately, mild TR with RVSP 26 mmhg. At present, BNP level was found elevated at 319 however chest imaging reveals no evidence for vascular congestion. 12-lead electrocardiogram upon arrival revealed sinus tachycardia at 109 bpm with no acute ischemic changes. Initial HS troponin level was found unremarkable at 16. As the patient presented with tachycardia and previously known history of diastolic heart failure, Cardiology services were involved for cardiac aspects of care. Past medical history includes previous cerebral vascular accident with residual left sided hemiparesis, baseline poor functional status and bed bound, chronic kidney disease, obstructive uropathy status post cystoscopy with urethral dilation and dorsal slit (04/2024) in the setting of phimosis, chronic diastolic heart failure, urinary tract infections, diabetes mellitus II, hyperlipidemia, hypertension, hydronephrosis, and anemia Echocardiogram: (05/05/2024 [facility]) revealed LV EF is 60-65%, stage I diastolic dysfunction, RV size and function is normal. Left Atrium: Left atrium is mildly dilated. No , No MS. Trace MR. Mild TR with RVSP 32 mmHg Echocardiogram: (06/09/2024 [facility]) revealed Left ventricle: Left ventricle is normal-sized with normal systolic function. LVEF was around 55%. There was no gross wall motion abnormality. Right ventricle was normal-sized with normal systolic function. Both atria were normal-sized. Aortic valve: Aortic valve is trileaflet. There was no aortic stenosis/insufficiency. There was no mitral regurgitation. There was trivial tricuspid regurgitation. Pulmonary valve was not well visualized. Right ventricular systolic pressure was around 30 mm Hg. There was no pericardial effusion Echocardiogram: (12/20/2024 [facility]) revealed TDS, EF 65%, stage I diastolic dysfunction, RV size and function is normal. mild LA dilation. Both AV and MV are opening adequately, mild TR with RVSP 26 mmhg. BLE Venous Duplex revealed IMPRESSION: 1. There is no sonographic evidence for DVT in the lower extremities. VQ Scan revealed IMPRESSION: 1. Normal perfusion. No evidence of pulmonary embolism. 2. Abnormal ventilation is likely due to multifocal airspace disease seen on recent radiographs. Echocardiogram reported: Left ventricle: Left ventricle was normal-sized with normal systolic function. LVEF was 64%. There was no gross wall motion abnormality. Right ventricle was normal-sized with normal systolic function. Both atria were normal-sized. Aortic valve was trileaflet. There was no aortic insufficiency/stenosis. There was trivial mitral/tricuspid regurgitation. There was no pulmonary valve insufficiency. Right ventricular systolic pressure was assessed at 34 mm Hg. There was no pericardial effusion. Symptomatic hypoglycemia, resolved Sepsis, in the setting of pneumonia/complicated UTI Sinus tachycardia, likely secondary to the above Abnormal D-Dimer, PE/DVT ruled out Chronic diastolic heart failure Baseline poor functional status Old history of previous CVA Residual left hemiparesis Chronic kidney disease Diabetes mellitus II Hyperlipidemia Hypertension Hyperkalemia Anemia, significant CARDIAC SUGGESTIONS FOR MANAGEMENT: Fluid volume management per Nephrology secondary to renal status Proceed with close observation for overt signs of fluid overload Proceed with strict intakes, outputs, and daily weights Proceed with close rate and rhythm surveillance Sustain Magnesium level greater than 2.0 Sustain Potassium level greater than 4.0 Follow up renal function and electrolytes Supplemental oxygen as warranted PRN Lopressor (IV) for rate control On IV antibiotic therapy Management of diabetes mellitus/hypoglycemia as per primary team Management of sepsis (pneumonia/UTI) as per primary team Management of chronic kidney disease as per Nephrology Management of co-morbidities per primary team Proceed with close hemodynamic surveillance Proceed with optimized blood pressure control Transfuse to sustain HGB level above 7.0 Management in telemetry Follow up surgical consultant recommendations Will proceed to follow from a cardiac perspective Further recommendations per clinical progression All available diagnostic labs, EKG's, and images were personally reviewed Plan of care discussed with and agreed upon by patient / primary RN Prognosis: Guarded Thank you for allowing me to participate in the care of this patient. Further recommendations based on patients clinical course and progression, primary attending, and other consultants. Will continue to follow with primary attending. If you have any questions or concerns, please do not hesitate to contact me. A total of 55 minutes was spent reviewing the patient record, examining the patient, making a diagnostic and therapeutic plan, discussing this plan with medical personnel, following up on diagnostic studies and following the patient for clinical stability excluding any and all procedures. At least 50% of this time was spent in direct, [id number] Plan discussed with: Other (nurse) FAN HAMEED MD Jan 02, 2025 12:33
--- NOTE | 2025-01-02 14:12 | DVHPN2 ---
Progress Note - Dictate Date Seen: Jan 02, 2025 Medical Necessity Reason Pt with a Central, PICC or Fol: Yes The following are medically ne: Smith Catheter Reason for smith catheter: Strict I&O Subjective tachypnea has resolved spoke with patients family at bedside vital signs Vital Sign Date Time Temp Pulse Resp B/P (MAP) Pulse Ox O2 Delivery O2 Flow Rate FiO2 01/02/25 12:20 94 20 132/66 96 2.0 28 01/02/25 10:23 Nasal Cannula* 01/02/25 05:00 97.8 97.8 Total Intake and Output 01/01/25 01/01/25 01/02/25 15:00 23:00 07:00 Intake Total 250 ml 1185 ml 230 ml Output Total 1000 ml 100 ml Balance 250 ml 185 ml 130 ml medications Current Medications Medications Dose Ordered Sig/Wai Route Start Time Stop Time Status Last Admin Dose Admin Acetaminophen/ Hydrocodone Bitart 1 tab Q4HP PRN PO 12/29/24 09:15 Ondansetron HCl 4 mg Q4HP PRN IV 12/29/24 09:15 Docusate Sodium 100 mg BIDPRN PRN PO 12/29/24 09:15 Zinc Sulfate 220 mg DAILY PO 12/29/24 10:00 01/02/25 10:26 220 MG Ascorbic Acid 500 mg BID PO 12/29/24 10:00 01/02/25 10:26 500 MG Multivitamins 1 tab DAILY PO 12/29/24 10:00 01/02/25 10:26 1 TAB Acetaminophen 650 mg Q6HP PRN PO 12/29/24 09:15 12/30/24 08:58 650 MG Nitroglycerin 0.4 mg Q5MINP PRN SL 12/29/24 09:15 Morphine Sulfate 2 mg Q30M PRN IV 12/29/24 09:15 Amlodipine Besylate 10 mg DAILY PO 12/29/24 10:00 01/02/25 10:26 10 MG Tamsulosin HCl 0.4 mg QPM PO 12/29/24 18:00 01/01/25 17:09 0.4 MG Metoprolol Tartrate 5 mg Q4HPRN PRN IV 12/29/24 15:30 12/30/24 08:57 5 MG Insulin Human Regular IQ4HR SC 12/30/24 12:00 01/02/25 12:09 6 UNITS Dextrose 50 ml UD PRN IV 12/30/24 09:45 Albuterol 2.5 mg Q4HR NEB 12/30/24 14:00 01/02/25 10:18 2.5 MG Ipratropium [place] 0.5 mg Q4HR NEB 12/30/24 14:00 01/02/25 10:18 0.5 MG Diagnostic Test (Pha) 1 strip IQ4HR 12/30/24 16:00 01/02/25 12:08 1 STRIP Piperacillin Sod/ Tazobactam Sod 100 ml @ 25 mls/hr Q8HR IV 12/31/24 22:00 UNV Azithromycin 250 ml @ 125 mls/hr DAILY IV 01/01/25 10:00 01/02/25 10:24 125 MLS/HR Piperacillin Sod/ Tazobactam Sod 100 ml @ 25 mls/hr Q8HR IV 12/31/24 22:00 01/02/25 06:25 25 MLS/HR Furosemide 40 mg BID PO 12/31/24 19:15 01/02/25 10:26 40 MG Atorvastatin Calcium 20 mg HS PO 01/01/25 22:00 01/01/25 21:11 20 MG objective Gen: NAD HEENT: NC,AT Lungs: rales Cardiac: Tachycardia, no murmur Abd: soft, no tenderness Ext: no edema + Smith laboratory and microbiology Laboratory Tests 01/02/25 03:11 Test 01/02/25 03:11 Range/Units Serum Glucose 103 74-106 mg/dL Assessment/Plan Assessment: LISANDRO: cardiorenal syndrome + Sepsis CKD III. (Baseline Cr: 1.6 mg/dl on May/2024) Acute hypoxic respiratory failure on supplemental oxygen Sepsis secondary to pneumonia Acute on Chronic diastolic CHF Acute anemia Hypoglycemia , resolved lactic acidosis Hyperkalemia, resolved DM HTN HLD h/o CVA with residual left sided weakness bed bound Plan: Continue Lasix 40 mg IV BID creatinine is stable DC Lisinopril Start Sodium bicarb 650 mg PO TID transfuse 1 U PRBC monitor H&H and transfuse if Hb < 7 g/dl Continue IV antibiotics Pulmonary consult daily BMP, and Mg continue Amlodipine 10 mg PO daily strict I&Os Plan discussed with: Patient, Other EBER ABBOTT MD Jan 02, 2025 14:12
--- NOTE | 2025-01-02 15:59 | DVHPN2 ---
Progress Note - Dictate Date Seen: Jan 02, 2025 Medical Necessity Reason Pt with a Central, PICC or Fol: Yes The following are medically ne: Smith Catheter Reason for smith catheter: Strict I&O vital signs Vital Sign Date Time Temp Pulse Resp B/P (MAP) Pulse Ox O2 Delivery O2 Flow Rate FiO2 01/02/25 14:38 95 20 100 01/02/25 14:26 98.0 124/80 98.0 01/02/25 12:20 2.0 28 01/02/25 10:23 Nasal Cannula* Total Intake and Output 01/01/25 01/01/25 01/02/25 15:00 23:00 07:00 Intake Total 250 ml 1185 ml 230 ml Output Total 1000 ml 100 ml Balance 250 ml 185 ml 130 ml medications Current Medications Medications Dose Ordered Sig/Wai Route Start Time Stop Time Status Last Admin Dose Admin Acetaminophen/ Hydrocodone Bitart 1 tab Q4HP PRN PO 12/29/24 09:15 Ondansetron HCl 4 mg Q4HP PRN IV 12/29/24 09:15 Docusate Sodium 100 mg BIDPRN PRN PO 12/29/24 09:15 Zinc Sulfate 220 mg DAILY PO 12/29/24 10:00 01/02/25 10:26 220 MG Ascorbic Acid 500 mg BID PO 12/29/24 10:00 01/02/25 10:26 500 MG Multivitamins 1 tab DAILY PO 12/29/24 10:00 01/02/25 10:26 1 TAB Acetaminophen 650 mg Q6HP PRN PO 12/29/24 09:15 12/30/24 08:58 650 MG Nitroglycerin 0.4 mg Q5MINP PRN SL 12/29/24 09:15 Morphine Sulfate 2 mg Q30M PRN IV 12/29/24 09:15 Amlodipine Besylate 10 mg DAILY PO 12/29/24 10:00 01/02/25 10:26 10 MG Tamsulosin HCl 0.4 mg QPM PO 12/29/24 18:00 01/01/25 17:09 0.4 MG Metoprolol Tartrate 5 mg Q4HPRN PRN IV 12/29/24 15:30 12/30/24 08:57 5 MG Insulin Human Regular IQ4HR SC 12/30/24 12:00 01/02/25 12:09 6 UNITS Dextrose 50 ml UD PRN IV 12/30/24 09:45 Albuterol 2.5 mg Q4HR NEB 12/30/24 14:00 01/02/25 14:28 2.5 MG Ipratropium [place] 0.5 mg Q4HR NEB 12/30/24 14:00 01/02/25 14:28 0.5 MG Diagnostic Test (Pha) 1 strip IQ4HR 12/30/24 16:00 01/02/25 12:08 1 STRIP Piperacillin Sod/ Tazobactam Sod 100 ml @ 25 mls/hr Q8HR IV 12/31/24 22:00 UNV Azithromycin 250 ml @ 125 mls/hr DAILY IV 01/01/25 10:00 01/02/25 10:24 125 MLS/HR Piperacillin Sod/ Tazobactam Sod 100 ml @ 25 mls/hr Q8HR IV 12/31/24 22:00 01/02/25 14:33 25 MLS/HR Furosemide 40 mg BID PO 12/31/24 19:15 01/02/25 10:26 40 MG Atorvastatin Calcium 20 mg HS PO 01/01/25 22:00 01/01/25 21:11 20 MG Sodium Bicarbonate 650 mg TID PO 01/02/25 22:00 objective General Appearance: alert, no distress HEENT: EOMI, PERRLA, normal external inspect of ears, no icterus, no nasal drainage Neck: no carotid bruit, no jugular venous distention (JVD), no lymphadenopathy Chest: normal thorax Respiratory: clear to auscultation, normal air movement Cardiovascular: regular rate and rhythm, no diastolic murmur, no jugular venous distention (JVD), no rub, no systolic murmur Abdominal: soft, no hepatomegaly, no mass, no splenomegaly, no tenderness Genitourinary: grossly normal external Musculoskeletal: no joint tenderness, no swelling Extremities: normal pulses, no calf tenderness, no clubbing, no cyanosis, no edema Skin: no bruising, no jaundice, no rash Neurological: alert, No focal deficit laboratory and microbiology Laboratory Tests 01/02/25 03:11 Test 01/02/25 03:11 Range/Units Serum Glucose 103 74-106 mg/dL Problem List 1. Sepsis Monitor, IV fluids, IV abx, cardiology consult 2. Hypoglycemia Monitor, hypoglycemia treatment 3. DM II Monitor, wound care consult 4. Pneumonia Monitor, IV abx 5. Bed bound Monitor 6. Acute cystitis w/o hematuria Monitor, IV abx 7. Hx of CVA with residual deficits Monitor 8. CKD3b Monitor, nephrology consult 9. Acute hypoxic respiratory failure Monitor, med-neb treatments, pulmonary consult, IV antibiotics Assessment/Plan Subjective Patient is much more awake and alert. Objective Patient's hemoglobin is 6.8. Patient received one unit of packed red blood cells. Patient's creatinine is stable. White blood cell count is down-trending. Patient is on sodium bicarbonate. Hypoglycemia has resolved. Patient is increasing his oral intake. VQ scan was negative for PE. Ultrasound venous Doppler is negative for DVT. Patient has CKD stage 3B. Plan Continue antibiotics for sepsis. Repeat labs ordered. Transfuse if hemoglobin is less than 7. No active signs or symptoms of bleeding. Plan discussed with: Patient, Other CC Plasma Assessment Blood Product Administration S: [id number] RAÚL STEEL NP Jan 02, 2025 15:59
[2025-01-02 19:07] LABS: Hematocrit 28.7 % (41.0-53.0); Hemoglobin 9.4 g/dL (13.5-17.5)
--- NOTE | 2025-01-02 22:19 | DVHPN2 ---
Progress Note - Dictate Date Seen: Jan 02, 2025 Medical Necessity Reason Pt with a Central, PICC or Fol: Yes The following are medically ne: Smith Catheter Reason for smith catheter: Strict I&O Subjective Patient seen and examined at bedside. Remains on supplemental oxygen Overnight events reviewed. vital signs Vital Sign Date Time Temp Pulse Resp B/P (MAP) Pulse Ox O2 Delivery O2 Flow Rate FiO2 01/02/25 19:21 100 22 100 01/02/25 19:15 Nasal Cannula 3.0 01/02/25 19:15 32 01/02/25 16:44 98.7 124/77 (93) 98.7 Total Intake and Output 01/01/25 01/01/25 01/02/25 15:00 23:00 07:00 Intake Total 250 ml 1185 ml 230 ml Output Total 1000 ml 100 ml Balance 250 ml 185 ml 130 ml medications Current Medications Medications Dose Ordered Sig/Wai Route Start Time Stop Time Status Last Admin Dose Admin Acetaminophen/ Hydrocodone Bitart 1 tab Q4HP PRN PO 12/29/24 09:15 Ondansetron HCl 4 mg Q4HP PRN IV 12/29/24 09:15 Docusate Sodium 100 mg BIDPRN PRN PO 12/29/24 09:15 Zinc Sulfate 220 mg DAILY PO 12/29/24 10:00 01/02/25 10:26 220 MG Ascorbic Acid 500 mg BID PO 12/29/24 10:00 01/02/25 10:26 500 MG Multivitamins 1 tab DAILY PO 12/29/24 10:00 01/02/25 10:26 1 TAB Acetaminophen 650 mg Q6HP PRN PO 12/29/24 09:15 12/30/24 08:58 650 MG Nitroglycerin 0.4 mg Q5MINP PRN SL 12/29/24 09:15 Morphine Sulfate 2 mg Q30M PRN IV 12/29/24 09:15 Amlodipine Besylate 10 mg DAILY PO 12/29/24 10:00 01/02/25 10:26 10 MG Tamsulosin HCl 0.4 mg QPM PO 12/29/24 18:00 01/02/25 18:09 0.4 MG Metoprolol Tartrate 5 mg Q4HPRN PRN IV 12/29/24 15:30 12/30/24 08:57 5 MG Insulin Human Regular IQ4HR SC 12/30/24 12:00 01/02/25 20:24 2 UNITS Dextrose 50 ml UD PRN IV 12/30/24 09:45 Albuterol 2.5 mg Q4HR NEB 12/30/24 14:00 01/02/25 19:15 2.5 MG Ipratropium [place] 0.5 mg Q4HR NEB 12/30/24 14:00 01/02/25 19:15 0.5 MG Diagnostic Test (Pha) 1 strip IQ4HR 12/30/24 16:00 01/02/25 20:24 1 STRIP Piperacillin Sod/ Tazobactam Sod 100 ml @ 25 mls/hr Q8HR IV 12/31/24 22:00 UNV Azithromycin 250 ml @ 125 mls/hr DAILY IV 01/01/25 10:00 01/02/25 10:24 125 MLS/HR Piperacillin Sod/ Tazobactam Sod 100 ml @ 25 mls/hr Q8HR IV 12/31/24 22:00 01/02/25 14:33 25 MLS/HR Furosemide 40 mg BID PO 12/31/24 19:15 01/02/25 10:26 40 MG Atorvastatin Calcium 20 mg HS PO 01/01/25 22:00 01/01/25 21:11 20 MG Sodium Bicarbonate 650 mg TID PO 01/02/25 22:00 objective Gen.: Patient lying in bed in no apparent distress. On supplemental oxygen. Head: Normocephalic, atraumatic. Eyes: EOMI/PERRLA. Ears: Normal hearing. Normal anatomy. Neck/trachea: Trachea midline, supple. Nose: Normal external anatomy. Mouth: Moist mucous membranes. Chest: Decreased air entry bilaterally. No wheezing or rhonchi. Cardiovascular: Positive S1, positive S2. Regular rate and rhythm. Abdomen: Positive bowel sounds in all 4 quadrants. Soft, non-tender, non- distended. : Deferred. Rectal: Deferred. Skin: Warm, dry. Intact. Extremities: 2+ radial pulses bilaterally. No lower extremity edema. Neuro: Awake, alert, oriented x3. No gross motor or sensory deficits. Cranial nerves II through XII intact. Gait not assessed. laboratory and microbiology Laboratory Tests 01/02/25 18:47 01/02/25 03:11 Test 01/02/25 03:11 Range/Units Serum Glucose 103 74-106 mg/dL Assessment/Plan Impression: Acute hypoxic respiratory failure Dependence on supplemental oxygen Sepsis DM type II w/ hypoglycemia Urinary tract infection CVA with left-sided deficits Pneumonia, likely gram negative Cachexia, BMI 13.9 Events: Remains on supplemental oxygen, 2 LPM NC Taper O2 as tolerated Improved O2 requirements Head of bed elevation Aspiration precautions Continue bronchodilators Mucomyst/CPT Pain control Avoid oversedation S/p 1 unit PRBC transfusion Monitor hemoglobin Continue antibiotics Monitor WBC Accu-Cheks, ISS PRN. Diurese to euvolemia w/ Lasix BID Monitor renal function. Monitor electrolytes. Supplement as necessary. Monitor ins and outs. Nephrology recommendations appreciated Labs and imaging reviewed. Rest of plan as noted below. Plan: Supplemental oxygen Titrate to keep O2 sats above 92%. Head of bed elevation Aspiration precautions. NTS Continue bronchodilators. Continue antibiotics Follow up cultures Accu-Cheks for glycemic monitoring Diurese to euvolemia w/ Lasix Monitor renal function. Monitor electrolytes. Supplement as necessary. Monitor ins and outs. DVT prophylaxis. Prognosis: Guarded given patient's multiple co-morbidities. Rest of plan per hospitalist and other consultants. Thank you, ANITHA Vergara, for allowing me to participate in this patient's care. Further recommendations will depend on the patient's clinical course. Please do not hesitate to contact me if you have any questions or concerns. This medical document was created using an electronic medical record system with RPO dictation system. Although these documentations are being carefully reviewed, there may still be some phonetic and typographical changes. The errors are purely typographical, due to imperfection on the software program, and do not reflect any compromise in the patient's medical care. Plan discussed with: Patient, Other (CARMEN Carmona) CC Plasma Assessment Blood Product Administration S: [id number] EDGARDO CULLEN MD Jan 02, 2025 22:19
[2025-01-02] MEDS: SODIUM BICARBONATE 650 MG TAB PO SCH (22:28)
[2025-01-03] VITALS (15 sets, daily range): BP systolic 134–138; BP diastolic 78–79; PULSE 88–102; RESP 18–22; TEMP 97.6–98.7; O2SAT 94–100
[2025-01-03 05:45] LABS: Basophils # (auto) 0.1 10 ^3/uL (0-0.2); Eosinophils # (auto) 0.1 10 ^3/uL (0-0.8); Eosinophils % (auto) 1.1 % (0.0-7.0); Hematocrit 24.2 % (41.0-53.0); Hemoglobin 8.2 g/dL (13.5-17.5); Lymphocytes # (auto) 2.3 10 ^3/uL (0.4-5.4); Lymphocytes % (auto) 20.6 % (10.0-50.0); Mean Corpuscular Hemoglobin 30.1 pg (28.0-32.0); Mean Corpuscular Hgb Conc. 33.7 g/dL (32.0-36.0); Mean Corpuscular Volume 89.4 fL (80.0-100.0); Monocytes # (auto) 1.3 10 ^3/uL (0-1.3); Monocytes % (auto) 11.7 % (0.0-12.0); Neutrophils # (auto) 7.3 10 ^3/uL (1.6-8.6); Neutrophils % (auto) 65.6 % (37.0-80.0); Nucleated Red Blood Cells % 0.1 %; Platelet Count (auto) 154 10^3/uL (140-450); Red Blood Cells 2.71 10^6/uL (4.5-5.90); Red Cell Distribution Width 17.8 % (11.8-14.3); White Blood Cell 11.2 10^3/uL (4.4-10.8)
[2025-01-03 05:49] LABS: Potassium 3.9 mmol/L (3.5-5.1)
[2025-01-03 05:50] LABS: Anion Gap 13 (5-15)
[2025-01-03 05:55] LABS: BUN/Creatinine Ratio 25.3 (10.0-20.0)
[2025-01-03 05:59] LABS: Blood Urea Nitrogen 60 mg/dL (9-23); Glucose 113 mg/dL (74-106)
[2025-01-03 06:04] LABS: Calcium 7.7 mg/dL (8.7-10.4); Carbon Dioxide 15 mmol/L (20-31); Chloride 108 mmol/L (98-107); Sodium 136 mmol/L (136-145)
--- NOTE | 2025-01-03 07:32 | DVHPN2 ---
Progress Note - Dictate Date Seen: Jan 03, 2025 Medical Necessity Reason Pt with a Central, PICC or Fol: Yes The following are medically ne: Smith Catheter Reason for smith catheter: Strict I&O vital signs Vital Sign Date Time Temp Pulse Resp B/P (MAP) Pulse Ox O2 Delivery O2 Flow Rate FiO2 01/03/25 05:00 97.6 94 18 134/78 (96) 94 97.6 01/03/25 02:49 Nasal Cannula* 3 32 Total Intake and Output 01/02/25 01/02/25 01/03/25 15:00 23:00 07:00 Intake Total 250 ml 1170 ml 220 ml Output Total 900 ml 550 ml Balance 250 ml 270 ml -330 ml medications Current Medications Medications Dose Ordered Sig/Wai Route Start Time Stop Time Status Last Admin Dose Admin Acetaminophen/ Hydrocodone Bitart 1 tab Q4HP PRN PO 12/29/24 09:15 Ondansetron HCl 4 mg Q4HP PRN IV 12/29/24 09:15 Docusate Sodium 100 mg BIDPRN PRN PO 12/29/24 09:15 Zinc Sulfate 220 mg DAILY PO 12/29/24 10:00 01/02/25 10:26 220 MG Ascorbic Acid 500 mg BID PO 12/29/24 10:00 01/02/25 22:28 500 MG Multivitamins 1 tab DAILY PO 12/29/24 10:00 01/02/25 10:26 1 TAB Acetaminophen 650 mg Q6HP PRN PO 12/29/24 09:15 12/30/24 08:58 650 MG Nitroglycerin 0.4 mg Q5MINP PRN SL 12/29/24 09:15 Morphine Sulfate 2 mg Q30M PRN IV 12/29/24 09:15 Amlodipine Besylate 10 mg DAILY PO 12/29/24 10:00 01/02/25 10:26 10 MG Tamsulosin HCl 0.4 mg QPM PO 12/29/24 18:00 01/02/25 18:09 0.4 MG Metoprolol Tartrate 5 mg Q4HPRN PRN IV 12/29/24 15:30 12/30/24 08:57 5 MG Insulin Human Regular IQ4HR SC 12/30/24 12:00 01/02/25 20:24 2 UNITS Dextrose 50 ml UD PRN IV 12/30/24 09:45 Albuterol 2.5 mg Q4HR NEB 12/30/24 14:00 01/03/25 02:49 2.5 MG Ipratropium [place] 0.5 mg Q4HR NEB 12/30/24 14:00 01/03/25 02:49 0.5 MG Diagnostic Test (Pha) 1 strip IQ4HR 12/30/24 16:00 01/03/25 04:08 1 STRIP Piperacillin Sod/ Tazobactam Sod 100 ml @ 25 mls/hr Q8HR IV 12/31/24 22:00 UNV Azithromycin 250 ml @ 125 mls/hr DAILY IV 01/01/25 10:00 01/02/25 10:24 125 MLS/HR Piperacillin Sod/ Tazobactam Sod 100 ml @ 25 mls/hr Q8HR IV 12/31/24 22:00 01/03/25 05:15 25 MLS/HR Furosemide 40 mg BID PO 12/31/24 19:15 01/02/25 22:28 40 MG Atorvastatin Calcium 20 mg HS PO 01/01/25 22:00 01/02/25 22:28 20 MG Sodium Bicarbonate 650 mg TID PO 01/02/25 22:00 01/03/25 05:14 650 MG laboratory and microbiology Laboratory Tests 01/03/25 05:02 Test 01/03/25 05:02 Range/Units Serum Glucose 113 H 74-106 mg/dL Assessment/Plan Subjective Seen and examined at the bedside within telemetry. Maintaining sinus rhythm upon telemetry review. Hemodynamics remain stable. Chart reviewed.. s/p PRBC transfusion. Being followed by Nephrology ASSESSMENT: This is a 44-year old male known outside to our practice who initially presented for altered mental status found to be hypoglycemic with initial serum glucose level of 44 which later improved status post Dextrose administration. It is of note, patient is on Glipizide outpatient which could have attributed to the underlying hypoglycemia. Patient was also found tachycardic and febrile with highest documented temperature of 101.4 in the setting of sepsis from underlying pneumonia with superimposing urinary tract infection as initial WBC count was found elevated at 16.5 with peak lactic acid level of 2.7. Initial creatinine level found elevated at 2.15 with an initial potassium level of 5.5. Initial magnesium level found to be 1.7. TSH level was found normal at 4.37. D-Dimer did reveal elevation at 1.00. Patient does have underlying history of diastolic heart failure which patient underwent Echocardiogram (12/20/2024 [facility]) revealing TDS, EF 65%, stage I diastolic dysfunction, RV size and function is normal. mild LA dilation. Both AV and MV are opening adequately, mild TR with RVSP 26 mmhg. At present, BNP level was found elevated at 319 however chest imaging reveals no evidence for vascular congestion. 12-lead electrocardiogram upon arrival revealed sinus tachycardia at 109 bpm with no acute ischemic changes. Initial HS troponin level was found unremarkable at 16. As the patient presented with tachycardia and previously known history of diastolic heart failure, Cardiology services were involved for cardiac aspects of care. Past medical history includes previous cerebral vascular accident with residual left sided hemiparesis, baseline poor functional status and bed bound, chronic kidney disease, obstructive uropathy status post cystoscopy with urethral dilation and dorsal slit (04/2024) in the setting of phimosis, chronic diastolic heart failure, urinary tract infections, diabetes mellitus II, hyperlipidemia, hypertension, hydronephrosis, and anemia Echocardiogram: (05/05/2024 [facility]) revealed LV EF is 60-65%, stage I diastolic dysfunction, RV size and function is normal. Left Atrium: Left atrium is mildly dilated. No , No MS. Trace MR. Mild TR with RVSP 32 mmHg Echocardiogram: (06/09/2024 [facility]) revealed Left ventricle: Left ventricle is normal-sized with normal systolic function. LVEF was around 55%. There was no gross wall motion abnormality. Right ventricle was normal-sized with normal systolic function. Both atria were normal-sized. Aortic valve: Aortic valve is trileaflet. There was no aortic stenosis/insufficiency. There was no mitral regurgitation. There was trivial tricuspid regurgitation. Pulmonary valve was not well visualized. Right ventricular systolic pressure was around 30 mm Hg. There was no pericardial effusion Echocardiogram: (12/20/2024 [facility]) revealed TDS, EF 65%, stage I diastolic dysfunction, RV size and function is normal. mild LA dilation. Both AV and MV are opening adequately, mild TR with RVSP 26 mmhg. BLE Venous Duplex revealed IMPRESSION: 1. There is no sonographic evidence for DVT in the lower extremities. VQ Scan revealed IMPRESSION: 1. Normal perfusion. No evidence of pulmonary embolism. 2. Abnormal ventilation is likely due to multifocal airspace disease seen on recent radiographs. Echocardiogram reported: Left ventricle: Left ventricle was normal-sized with normal systolic function. LVEF was 64%. There was no gross wall motion abnormality. Right ventricle was normal-sized with normal systolic function. Both atria were normal-sized. Aortic valve was trileaflet. There was no aortic insufficiency/stenosis. There was trivial mitral/tricuspid regurgitation. There was no pulmonary valve insufficiency. Right ventricular systolic pressure was assessed at 34 mm Hg. There was no pericardial effusion. Symptomatic hypoglycemia, resolved Sepsis, in the setting of pneumonia/complicated UTI Sinus tachycardia, likely secondary to the above Abnormal D-Dimer, PE/DVT ruled out Chronic diastolic heart failure Baseline poor functional status Old history of previous CVA Residual left hemiparesis Chronic kidney disease Diabetes mellitus II Hyperlipidemia Hypertension Hyperkalemia Anemia, significant CARDIAC SUGGESTIONS FOR MANAGEMENT: Fluid volume management per Nephrology secondary to renal status Proceed with close observation for overt signs of fluid overload Proceed with strict intakes, outputs, and daily weights Proceed with close rate and rhythm surveillance Sustain Magnesium level greater than 2.0 Sustain Potassium level greater than 4.0 Follow up renal function and electrolytes Supplemental oxygen as warranted PRN Lopressor (IV) for rate control On IV antibiotic therapy Management of diabetes mellitus/hypoglycemia as per primary team Management of sepsis (pneumonia/UTI) as per primary team Management of chronic kidney disease as per Nephrology Management of co-morbidities per primary team Proceed with close hemodynamic surveillance Proceed with optimized blood pressure control Transfuse to sustain HGB level above 7.0 Management in telemetry Follow up solutions sales consultant recommendations Will proceed to follow from a cardiac perspective Further recommendations per clinical progression All available diagnostic labs, EKG's, and images were personally reviewed Plan of care discussed with and agreed upon by patient / primary RN Prognosis: Guarded Thank you for allowing me to participate in the care of this patient. Further recommendations based on patients clinical course and progression, primary attending, and other consultants. Will continue to follow with primary attending. If you have any questions or concerns, please do not hesitate to contact me. A total of 55 minutes was spent reviewing the patient record, examining the patient, making a diagnostic and therapeutic plan, discussing this plan with medical personnel, following up on diagnostic studies and following the patient for clinical stability excluding any and all procedures. At least 50% of this time was spent in direct, [id number] Plan discussed with: Other (nurse) CC Plasma Assessment Blood Product Administration S: [id number] FAN HAMEED MD Jan 03, 2025 07:32
--- NOTE | 2025-01-03 15:24 | DVHPN2 ---
Progress Note - Dictate Date Seen: Jan 03, 2025 Medical Necessity Reason Pt with a Central, PICC or Fol: Yes The following are medically ne: Smith Catheter Reason for smith catheter: Strict I&O Subjective no new symptoms vital signs Vital Sign Date Time Temp Pulse Resp B/P (MAP) Pulse Ox O2 Delivery O2 Flow Rate FiO2 01/03/25 13:26 92 18 100 01/03/25 13:17 Room Air 0.0 01/03/25 13:17 21 01/03/25 09:50 136/73 01/03/25 09:00 97.9 97.9 Total Intake and Output 01/02/25 01/02/25 01/03/25 15:00 23:00 07:00 Intake Total 250 ml 1170 ml 220 ml Output Total 900 ml 550 ml Balance 250 ml 270 ml -330 ml medications Current Medications Medications Dose Ordered Sig/Wai Route Start Time Stop Time Status Last Admin Dose Admin Acetaminophen/ Hydrocodone Bitart 1 tab Q4HP PRN PO 12/29/24 09:15 Ondansetron HCl 4 mg Q4HP PRN IV 12/29/24 09:15 Docusate Sodium 100 mg BIDPRN PRN PO 12/29/24 09:15 Zinc Sulfate 220 mg DAILY PO 12/29/24 10:00 01/03/25 09:38 220 MG Ascorbic Acid 500 mg BID PO 12/29/24 10:00 01/03/25 09:39 500 MG Multivitamins 1 tab DAILY PO 12/29/24 10:00 01/03/25 09:38 1 TAB Acetaminophen 650 mg Q6HP PRN PO 12/29/24 09:15 12/30/24 08:58 650 MG Nitroglycerin 0.4 mg Q5MINP PRN SL 12/29/24 09:15 Morphine Sulfate 2 mg Q30M PRN IV 12/29/24 09:15 Amlodipine Besylate 10 mg DAILY PO 12/29/24 10:00 01/03/25 09:50 10 MG Tamsulosin HCl 0.4 mg QPM PO 12/29/24 18:00 01/02/25 18:09 0.4 MG Metoprolol Tartrate 5 mg Q4HPRN PRN IV 12/29/24 15:30 12/30/24 08:57 5 MG Insulin Human Regular IQ4HR SC 12/30/24 12:00 01/03/25 12:03 4 UNITS Dextrose 50 ml UD PRN IV 12/30/24 09:45 Albuterol 2.5 mg Q4HR NEB 12/30/24 14:00 01/03/25 13:17 2.5 MG Ipratropium [place] 0.5 mg Q4HR NEB 12/30/24 14:00 01/03/25 13:17 0.5 MG Diagnostic Test (Pha) 1 strip IQ4HR 12/30/24 16:00 01/03/25 11:55 1 STRIP Piperacillin Sod/ Tazobactam Sod 100 ml @ 25 mls/hr Q8HR IV 12/31/24 22:00 UNV Azithromycin 250 ml @ 125 mls/hr DAILY IV 01/01/25 10:00 01/03/25 09:37 125 MLS/HR Piperacillin Sod/ Tazobactam Sod 100 ml @ 25 mls/hr Q8HR IV 12/31/24 22:00 01/03/25 13:47 25 MLS/HR Furosemide 40 mg BID PO 12/31/24 19:15 01/03/25 09:50 40 MG Atorvastatin Calcium 20 mg HS PO 01/01/25 22:00 01/02/25 22:28 20 MG Sodium Bicarbonate 650 mg TID PO 01/02/25 22:00 01/03/25 13:47 650 MG objective Gen: NAD HEENT: NC,AT Lungs: rales Cardiac: Tachycardia, no murmur Abd: soft, no tenderness Ext: no edema + Smith laboratory and microbiology Laboratory Tests 01/03/25 05:02 Test 01/03/25 05:02 Range/Units Serum Glucose 113 H 74-106 mg/dL Assessment/Plan Assessment: LISANDRO: cardiorenal syndrome + Sepsis CKD III. (Baseline Cr: 1.6 mg/dl on May/2024) Acute hypoxic respiratory failure: Improved Sepsis secondary to pneumonia Acute on Chronic diastolic CHF Acute anemia Hypoglycemia , resolved lactic acidosis Hyperkalemia, resolved DM HTN HLD h/o CVA with residual left sided weakness bed bound Plan: Continue Lasix 40 mg IV BID creatinine improved DC Lisinopril Continue Sodium bicarb 650 mg PO TID monitor H&H and transfuse if Hb < 7 g/dl Continue IV antibiotics Pulmonary consult daily BMP, and Mg continue Amlodipine 10 mg PO daily strict I&Os Plan discussed with: Patient CC Plasma Assessment Blood Product Administration S: [id number] EBER ABBOTT MD Jan 03, 2025 15:24
[2025-01-03] MEDS: FUROSEMIDE 40 MG TAB PO SCH (18:46)
--- NOTE | 2025-01-03 19:52 | DVHPN2 ---
Progress Note - Dictate Date Seen: Jan 03, 2025 Medical Necessity Reason Pt with a Central, PICC or Fol: Yes The following are medically ne: Smith Catheter Reason for smith catheter: Strict I&O vital signs Vital Sign Date Time Temp Pulse Resp B/P (MAP) Pulse Ox O2 Delivery O2 Flow Rate FiO2 01/03/25 18:46 120/80 01/03/25 13:26 92 18 100 01/03/25 13:17 Room Air 0.0 01/03/25 13:17 21 01/03/25 09:00 97.9 97.9 Total Intake and Output 01/02/25 01/02/25 01/03/25 15:00 23:00 07:00 Intake Total 250 ml 1170 ml 220 ml Output Total 900 ml 550 ml Balance 250 ml 270 ml -330 ml medications Current Medications Medications Dose Ordered Sig/Wai Route Start Time Stop Time Status Last Admin Dose Admin Acetaminophen/ Hydrocodone Bitart 1 tab Q4HP PRN PO 12/29/24 09:15 Ondansetron HCl 4 mg Q4HP PRN IV 12/29/24 09:15 Docusate Sodium 100 mg BIDPRN PRN PO 12/29/24 09:15 Zinc Sulfate 220 mg DAILY PO 12/29/24 10:00 01/03/25 09:38 220 MG Ascorbic Acid 500 mg BID PO 12/29/24 10:00 01/03/25 09:39 500 MG Multivitamins 1 tab DAILY PO 12/29/24 10:00 01/03/25 09:38 1 TAB Acetaminophen 650 mg Q6HP PRN PO 12/29/24 09:15 12/30/24 08:58 650 MG Nitroglycerin 0.4 mg Q5MINP PRN SL 12/29/24 09:15 Morphine Sulfate 2 mg Q30M PRN IV 12/29/24 09:15 Amlodipine Besylate 10 mg DAILY PO 12/29/24 10:00 01/03/25 09:50 10 MG Tamsulosin HCl 0.4 mg QPM PO 12/29/24 18:00 01/03/25 17:26 0.4 MG Metoprolol Tartrate 5 mg Q4HPRN PRN IV 12/29/24 15:30 12/30/24 08:57 5 MG Insulin Human Regular IQ4HR SC 12/30/24 12:00 01/03/25 12:03 4 UNITS Dextrose 50 ml UD PRN IV 12/30/24 09:45 Albuterol 2.5 mg Q4HR NEB 12/30/24 14:00 01/03/25 19:26 2.5 MG Ipratropium [place] 0.5 mg Q4HR NEB 12/30/24 14:00 01/03/25 19:26 0.5 MG Diagnostic Test (Pha) 1 strip IQ4HR 12/30/24 16:00 01/03/25 16:23 1 STRIP Piperacillin Sod/ Tazobactam Sod 100 ml @ 25 mls/hr Q8HR IV 12/31/24 22:00 UNV Azithromycin 250 ml @ 125 mls/hr DAILY IV 01/01/25 10:00 01/03/25 09:37 125 MLS/HR Piperacillin Sod/ Tazobactam Sod 100 ml @ 25 mls/hr Q8HR IV 12/31/24 22:00 01/03/25 13:47 25 MLS/HR Atorvastatin Calcium 20 mg HS PO 01/01/25 22:00 01/02/25 22:28 20 MG Sodium Bicarbonate 650 mg TID PO 01/02/25 22:00 01/03/25 13:47 650 MG Furosemide 40 mg BIDD PO 01/03/25 18:00 01/03/25 18:46 40 MG objective General Appearance: alert, no distress HEENT: EOMI, PERRLA, normal external inspect of ears, no icterus, no nasal drainage Neck: no carotid bruit, no jugular venous distention (JVD), no lymphadenopathy Chest: normal thorax Respiratory: clear to auscultation, normal air movement Cardiovascular: regular rate and rhythm, no diastolic murmur, no jugular venous distention (JVD), no rub, no systolic murmur Abdominal: soft, no hepatomegaly, no mass, no splenomegaly, no tenderness Genitourinary: grossly normal external Musculoskeletal: no joint tenderness, no swelling Extremities: normal pulses, no calf tenderness, no clubbing, no cyanosis, no edema Skin: no bruising, no jaundice, no rash Neurological: alert, No focal deficit laboratory and microbiology Laboratory Tests 01/03/25 05:02 Test 01/03/25 05:02 Range/Units Serum Glucose 113 H 74-106 mg/dL Problem List 1. Sepsis Monitor, IV fluids, IV abx, cardiology consult 2. Hypoglycemia Monitor, hypoglycemia treatment 3. DM II Monitor, wound care consult 4. Pneumonia Monitor, IV abx 5. Bed bound Monitor 6. Acute cystitis w/o hematuria Monitor, IV abx 7. Hx of CVA with residual deficits Monitor 8. CKD3b Monitor, nephrology consult 9. Acute hypoxic respiratory failure Monitor, med-neb treatments, pulmonary consult, IV antibiotics Assessment/Plan Subjective Patient is awake and alert. Objective No change to patient status. WBC downtrending. Hemoglobin is stable. No active signs or symptoms of bleeding. Plan Continue antibiotics with Zosyn and azithromycin. Monitor daily labs. Monitor renal function. Plan discussed with: Patient, Other CC Plasma Assessment Blood Product Administration S: [id number] RAÚL STEEL NP Jan 03, 2025 19:52
--- NOTE | 2025-01-03 23:28 | DVHPN2 ---
Progress Note - Dictate Date Seen: Jan 03, 2025 Medical Necessity Reason Pt with a Central, PICC or Fol: Yes The following are medically ne: Smith Catheter Reason for smith catheter: Strict I&O Subjective Patient seen and examined at bedside. Remains on supplemental oxygen Overnight events reviewed. vital signs Vital Sign Date Time Temp Pulse Resp B/P (MAP) Pulse Ox O2 Delivery O2 Flow Rate FiO2 01/03/25 22:10 92 20 94 01/03/25 22:00 98.7 138/79 (98) 98.7 01/03/25 20:00 Nasal Cannula* 2 28 Total Intake and Output 01/02/25 01/02/25 01/03/25 15:00 23:00 07:00 Intake Total 250 ml 1170 ml 220 ml Output Total 900 ml 550 ml Balance 250 ml 270 ml -330 ml medications Current Medications Medications Dose Ordered Sig/Wai Route Start Time Stop Time Status Last Admin Dose Admin Acetaminophen/ Hydrocodone Bitart 1 tab Q4HP PRN PO 12/29/24 09:15 Ondansetron HCl 4 mg Q4HP PRN IV 12/29/24 09:15 Docusate Sodium 100 mg BIDPRN PRN PO 12/29/24 09:15 Zinc Sulfate 220 mg DAILY PO 12/29/24 10:00 01/03/25 09:38 220 MG Ascorbic Acid 500 mg BID PO 12/29/24 10:00 01/03/25 21:15 500 MG Multivitamins 1 tab DAILY PO 12/29/24 10:00 01/03/25 09:38 1 TAB Acetaminophen 650 mg Q6HP PRN PO 12/29/24 09:15 12/30/24 08:58 650 MG Nitroglycerin 0.4 mg Q5MINP PRN SL 12/29/24 09:15 Morphine Sulfate 2 mg Q30M PRN IV 12/29/24 09:15 Amlodipine Besylate 10 mg DAILY PO 12/29/24 10:00 01/03/25 09:50 10 MG Tamsulosin HCl 0.4 mg QPM PO 12/29/24 18:00 01/03/25 17:26 0.4 MG Metoprolol Tartrate 5 mg Q4HPRN PRN IV 12/29/24 15:30 12/30/24 08:57 5 MG Insulin Human Regular IQ4HR SC 12/30/24 12:00 2/9/25 20:53 3 UNITS Dextrose 50 ml UD PRN IV 12/30/24 09:45 Albuterol 2.5 mg Q4HR NEB 12/30/24 14:00 01/03/25 22:12 2.5 MG Ipratropium [place] 0.5 mg Q4HR NEB 12/30/24 14:00 01/03/25 22:12 0.5 MG Diagnostic Test (Pha) 1 strip IQ4HR 12/30/24 16:00 01/03/25 20:51 1 STRIP Piperacillin Sod/ Tazobactam Sod 100 ml @ 25 mls/hr Q8HR IV 12/31/24 22:00 UNV Azithromycin 250 ml @ 125 mls/hr DAILY IV 01/01/25 10:00 01/03/25 09:37 125 MLS/HR Piperacillin Sod/ Tazobactam Sod 100 ml @ 25 mls/hr Q8HR IV 12/31/24 22:00 01/03/25 21:14 25 MLS/HR Atorvastatin Calcium 20 mg HS PO 01/01/25 22:00 01/03/25 21:15 20 MG Sodium Bicarbonate 650 mg TID PO 01/02/25 22:00 01/03/25 21:15 650 MG Furosemide 40 mg BIDD PO 01/03/25 18:00 01/03/25 18:46 40 MG objective Gen.: Patient lying in bed in no apparent distress. On supplemental oxygen. Head: Normocephalic, atraumatic. Eyes: EOMI/PERRLA. Ears: Normal hearing. Normal anatomy. Neck/trachea: Trachea midline, supple. Nose: Normal external anatomy. Mouth: Moist mucous membranes. Chest: Decreased air entry bilaterally. No wheezing or rhonchi. Cardiovascular: Positive S1, positive S2. Regular rate and rhythm. Abdomen: Positive bowel sounds in all 4 quadrants. Soft, non-tender, non- distended. : Deferred. Rectal: Deferred. Skin: Warm, dry. Intact. Extremities: 2+ radial pulses bilaterally. No lower extremity edema. Neuro: Awake, alert, oriented x3. No gross motor or sensory deficits. Cranial nerves II through XII intact. Gait not assessed. laboratory and microbiology Laboratory Tests 01/03/25 05:02 Test 01/03/25 05:02 Range/Units Serum Glucose 113 H 74-106 mg/dL Assessment/Plan Impression: Acute hypoxic respiratory failure Dependence on supplemental oxygen Sepsis DM type II w/ hypoglycemia Urinary tract infection CVA with left-sided deficits Pneumonia, likely gram negative Cachexia, BMI 13.9 Events: Remains on supplemental oxygen, 2 LPM NC Taper O2 as tolerated Improved O2 requirements Head of bed elevation Aspiration precautions Continue bronchodilators Continue antibiotics Vitamin supplementation S/p 1 unit PRBC transfusion yesterday Monitor hemoglobin Monitor WBC Accu-Cheks, ISS PRN. Diurese to euvolemia w/ Lasix BID Monitor renal function. Monitor electrolytes. Supplement as necessary. Monitor ins and outs. Nephrology recommendations appreciated Labs and imaging reviewed. Rest of plan as noted below. Plan: Supplemental oxygen Titrate to keep O2 sats above 92%. Head of bed elevation Aspiration precautions. NTS Continue bronchodilators. Continue antibiotics Follow up cultures Accu-Cheks for glycemic monitoring Diurese to euvolemia w/ Lasix Monitor renal function. Monitor electrolytes. Supplement as necessary. Monitor ins and outs. DVT prophylaxis. Prognosis: Guarded given patient's multiple co-morbidities. Rest of plan per hospitalist and other consultants. Thank you, ANITHA Vergara, for allowing me to participate in this patient's care. Further recommendations will depend on the patient's clinical course. Please do not hesitate to contact me if you have any questions or concerns. This medical document was created using an electronic medical record system with [employer] dictation system. Although these documentations are being carefully reviewed, there may still be some phonetic and typographical changes. The errors are purely typographical, due to imperfection on the software program, and do not reflect any compromise in the patient's medical care. Plan discussed with: Patient, Other (CARMEN Stiles) CC Plasma Assessment Blood Product Administration S: [id number] EDGARDO CULLEN MD Jan 03, 2025 23:28
--- NOTE | 2025-01-03 23:47 | DVHPN2 ---
Consult Progress Note Date Seen: Jan 03, 2025 Subjective Patient reports: Other (a little tachycardic , is on 94% of 2 liters nasal canula , sometimes not requiring it . ) Objective vital signs Vital Sign Date Time Temp Pulse Resp B/P (MAP) Pulse Ox O2 Delivery O2 Flow Rate FiO2 01/03/25 22:10 92 20 94 01/03/25 22:00 98.7 138/79 (98) 98.7 01/03/25 20:00 Nasal Cannula* 2 28 Total Intake and Output 01/02/25 01/02/25 01/03/25 15:00 23:00 07:00 Intake Total 250 ml 1170 ml 220 ml Output Total 900 ml 550 ml Balance 250 ml 270 ml -330 ml medications Current Medications Medications Dose Ordered Sig/Wai Route Start Time Stop Time Status Last Admin Dose Admin Acetaminophen/ Hydrocodone Bitart 1 tab Q4HP PRN PO 12/29/24 09:15 Ondansetron HCl 4 mg Q4HP PRN IV 12/29/24 09:15 Docusate Sodium 100 mg BIDPRN PRN PO 12/29/24 09:15 Zinc Sulfate 220 mg DAILY PO 12/29/24 10:00 01/03/25 09:38 220 MG Ascorbic Acid 500 mg BID PO 12/29/24 10:00 01/03/25 21:15 500 MG Multivitamins 1 tab DAILY PO 12/29/24 10:00 01/03/25 09:38 1 TAB Acetaminophen 650 mg Q6HP PRN PO 12/29/24 09:15 12/30/24 08:58 650 MG Nitroglycerin 0.4 mg Q5MINP PRN SL 12/29/24 09:15 Morphine Sulfate 2 mg Q30M PRN IV 12/29/24 09:15 Amlodipine Besylate 10 mg DAILY PO 12/29/24 10:00 01/03/25 09:50 10 MG Tamsulosin HCl 0.4 mg QPM PO 12/29/24 18:00 01/03/25 17:26 0.4 MG Metoprolol Tartrate 5 mg Q4HPRN PRN IV 12/29/24 15:30 12/30/24 08:57 5 MG Insulin Human Regular IQ4HR SC 12/30/24 12:00 01/03/25 20:53 3 UNITS Dextrose 50 ml UD PRN IV 12/30/24 09:45 Albuterol 2.5 mg Q4HR NEB 12/30/24 14:00 01/03/25 22:12 2.5 MG Ipratropium [place] 0.5 mg Q4HR NEB 12/30/24 14:00 01/03/25 22:12 0.5 MG Diagnostic Test (Pha) 1 strip IQ4HR 12/30/24 16:00 01/03/25 20:51 1 STRIP Piperacillin Sod/ Tazobactam Sod 100 ml @ 25 mls/hr Q8HR IV 12/31/24 22:00 UNV Azithromycin 250 ml @ 125 mls/hr DAILY IV 01/01/25 10:00 01/03/25 09:37 125 MLS/HR Piperacillin Sod/ Tazobactam Sod 100 ml @ 25 mls/hr Q8HR IV 12/31/24 22:00 01/03/25 21:14 25 MLS/HR Atorvastatin Calcium 20 mg HS PO 01/01/25 22:00 01/03/25 21:15 20 MG Sodium Bicarbonate 650 mg TID PO 01/02/25 22:00 01/03/25 21:15 650 MG Furosemide 40 mg BIDD PO 01/03/25 18:00 01/03/25 18:46 40 MG Physical Exam General Appearance: Cooperative. Well developed. Well nourished. NAD Head Exam: Normal inspection Neck Exam: Normal inspection. Non-tender. Normal alignment Pulmonary/Respiratory: Chest non-tender. Bilateral lung base crackles. Cardiovascular/Chest: Regular rate and rhythm. No murmurs. No JVD. Peripheral Pulses: 2+ Radial (R). 2+ Radial (L). 2+ Pedal (R). 2+ Pedal (L) Abdominal Exam: Normal bowel sounds. Soft. Nontender. No hepatospenomegaly. No masses Ankle Exam: Negative ankle edema Lower extremities: Negative lower extremity edema Neuro/Mental Status: A&O x4. Coherent Thoughts/Psych: Normal thought pattern. Appropriate mood and affect. Good judgement and insight Appearance: In no acute distress Skin Exam: Normal inspection. Normal color. Warm. Dry laboratory and microbiology Laboratory Tests 01/03/25 05:02 Test 01/03/25 05:02 Range/Units Serum Glucose 113 H 74-106 mg/dL Problem List/Assessment/Plan Problems(with codes): (1) Acute prerenal azotemia (2) Urethral stricture (3) Hypoglycemia (4) Pneumonitis (5) Metabolic encephalopathy (6) Hyperglycemia Problem List/Assessment/Plan Problem List/Assessment/Plan Sepsis in setting of pneumonia likely g negative Acute complicated UTI Hypoglycemia Ruled out PE Chronic diastolic heart failure History of CVA with residual left-sided weakness CKD stage 3 Diabetes mellitus type 2 Hypertension Hyperlipidemia Bed-bound Assessment: patient is a 44 year old male with a past medical history of cerebral palsy and related mental delay with bedridden diabetes and has a history of stroke with residual deficit CKD and stage 3 obstructive uropathy , diastolic CHF , hypertension , hyperlipidemia, hydronephrosis, anemia and was brought into the hospital with altered mental status and was recently admitted to [facility] a week ago with hyperglycemia and concerned as well of LISANDRO . Patient was treated for a UTI at that hospitalization and now presents with SOB and hypoglycemia with blood sugar in the 40s and patient is requiring 3-5 liters of nasal canula . Chest xray shows left lung opacities with concern for pneumonia and temp has ranged from 100.3- 98.3 and is tachycardic . overall tachycardia , fever and BP has been improving during this hospital course. Surgical history include ureteral dilation , review of systems . patient indorses SOB and cough , no sputum production , no diarrhea and no chest pains . Temperature of 97.1 currently with pulse 88 and BP 107/62 and setting 100% on 2 liters nasal canula. patient is altert and oriented and able to answer short questions , crackles in bases bilaterally . whitecount 13.7 that has come down from 20.7 on admission and platelet has come down to 148 from 210. Urine cultures shows deyanira , patient came in with a smith catheter , blood cultures is no growth to date , MRSA nares is negative . chest xray shows left lung hezy opacities which may represent pneumonia and doppler ultrasound showed no signs of DVT in lower extremities . plan would be to cover empirically for hospital aquired pneumonia due to recent [facility] visit , would forgo vancomycin due to negative MRSA nares , would continue Zosyn and start azithromycin for hospital aquired pneumonia coverage given the multifocal nature of the opacities , no need for fluconazole instead would recommend exchange of smith catheter if patient still requires smith . check procal serotinum level , check sputum culture that may need inducing . follow up on influenza, covid and RSV swab testing . 01/01: patient was unable to produce any sputum sample , unclear if patient is just unable to understand the request . still SOB however is setting 100% on 3 liters nasal canula . crackles in lungs bilaterally , mild edema in the legs. whitecount continues to come down . plan will be to continue Zosyn and azithromycin , acquire and induced sputum culture 01/02: sputum culture, growing normal respiratory syeda 01/03: hemaglobin 8.2 , whitecount 11.2 , having good urine output through catheter , responding to antibiotic therapy Plan: - continue ceftriaxone -MRSA negative -blood culture(12/29/24): Negative, no growth after 48 hours of incubation -urine culture from 12/29/2024: Yeast, not Diana albicans, likely contamination. No need for antifungal. -pending respiratory culture, influenza and COVID swab. -reviewed chest x-ray which showed left-sided lung obesity. -procalcitonin -on oxygen via nasal cannula, currently at 3-5 L. -continue IV fluid, continue to monitor urine output. -rest of the management as per hospitalist. Plan discussed with: Other CC Plasma Assessment Blood Product Administration S: [id number] MOISE FRANKEL MD Jan 03, 2025 23:47
--- NOTE | 2025-01-03 23:47 | DVHPN2 ---
Consult Progress Note Date Seen: Jan 02, 2025 Subjective Patient reports: Other (mentating better , less SOB and breathing on 2 liters nasal canula , with a cough ) Objective vital signs Vital Sign Date Time Temp Pulse Resp B/P (MAP) Pulse Ox O2 Delivery O2 Flow Rate FiO2 01/03/25 22:10 92 20 94 01/03/25 22:00 98.7 138/79 (98) 98.7 01/03/25 20:00 Nasal Cannula* 2 28 Total Intake and Output 01/02/25 01/02/25 01/03/25 15:00 23:00 07:00 Intake Total 250 ml 1170 ml 220 ml Output Total 900 ml 550 ml Balance 250 ml 270 ml -330 ml medications Current Medications Medications Dose Ordered Sig/Wai Route Start Time Stop Time Status Last Admin Dose Admin Acetaminophen/ Hydrocodone Bitart 1 tab Q4HP PRN PO 12/29/24 09:15 Ondansetron HCl 4 mg Q4HP PRN IV 12/29/24 09:15 Docusate Sodium 100 mg BIDPRN PRN PO 12/29/24 09:15 Zinc Sulfate 220 mg DAILY PO 12/29/24 10:00 01/03/25 09:38 220 MG Ascorbic Acid 500 mg BID PO 12/29/24 10:00 01/03/25 21:15 500 MG Multivitamins 1 tab DAILY PO 12/29/24 10:00 01/03/25 09:38 1 TAB Acetaminophen 650 mg Q6HP PRN PO 12/29/24 09:15 12/30/24 08:58 650 MG Nitroglycerin 0.4 mg Q5MINP PRN SL 12/29/24 09:15 Morphine Sulfate 2 mg Q30M PRN IV 12/29/24 09:15 Amlodipine Besylate 10 mg DAILY PO 12/29/24 10:00 01/03/25 09:50 10 MG Tamsulosin HCl 0.4 mg QPM PO 12/29/24 18:00 01/03/25 17:26 0.4 MG Metoprolol Tartrate 5 mg Q4HPRN PRN IV 12/29/24 15:30 12/30/24 08:57 5 MG Insulin Human Regular IQ4HR SC 12/30/24 12:00 01/03/25 20:53 3 UNITS Dextrose 50 ml UD PRN IV 12/30/24 09:45 Albuterol 2.5 mg Q4HR NEB 12/30/24 14:00 01/03/25 22:12 2.5 MG Ipratropium [place] 0.5 mg Q4HR NEB 12/30/24 14:00 01/03/25 22:12 0.5 MG Diagnostic Test (Pha) 1 strip IQ4HR 12/30/24 16:00 01/03/25 20:51 1 STRIP Piperacillin Sod/ Tazobactam Sod 100 ml @ 25 mls/hr Q8HR IV 12/31/24 22:00 UNV Azithromycin 250 ml @ 125 mls/hr DAILY IV 01/01/25 10:00 01/03/25 09:37 125 MLS/HR Piperacillin Sod/ Tazobactam Sod 100 ml @ 25 mls/hr Q8HR IV 12/31/24 22:00 01/03/25 21:14 25 MLS/HR Atorvastatin Calcium 20 mg HS PO 01/01/25 22:00 01/03/25 21:15 20 MG Sodium Bicarbonate 650 mg TID PO 01/02/25 22:00 01/03/25 21:15 650 MG Furosemide 40 mg BIDD PO 01/03/25 18:00 01/03/25 18:46 40 MG Physical Exam General Appearance: Cooperative. Well developed. Well nourished. NAD Head Exam: Normal inspection Neck Exam: Normal inspection. Non-tender. Normal alignment Pulmonary/Respiratory: Chest non-tender. Bilateral lung base crackles. Cardiovascular/Chest: Regular rate and rhythm. No murmurs. No JVD. Peripheral Pulses: 2+ Radial (R). 2+ Radial (L). 2+ Pedal (R). 2+ Pedal (L) Abdominal Exam: Normal bowel sounds. Soft. Nontender. No hepatospenomegaly. No masses Ankle Exam: Negative ankle edema Lower extremities: Negative lower extremity edema Neuro/Mental Status: A&O x4. Coherent Thoughts/Psych: Normal thought pattern. Appropriate mood and affect. Good judgement and insight Appearance: In no acute distress Skin Exam: Normal inspection. Normal color. Warm. Dry laboratory and microbiology Laboratory Tests 01/03/25 05:02 Test 01/03/25 05:02 Range/Units Serum Glucose 113 H 74-106 mg/dL Problem List/Assessment/Plan Problems(with codes): (1) Hypoglycemia (2) Hyperglycemia (3) Symptomatic anemia (4) Weakness (5) UTI (urinary tract infection) Problem List/Assessment/Plan Problem List/Assessment/Plan Sepsis in setting of pneumonia likely g negative Acute complicated UTI Hypoglycemia Ruled out PE Chronic diastolic heart failure History of CVA with residual left-sided weakness CKD stage 3 Diabetes mellitus type 2 Hypertension Hyperlipidemia Bed-bound Assessment: patient is a 44 year old male with a past medical history of cerebral palsy and related mental delay with bedridden diabetes and has a history of stroke with residual deficit CKD and stage 3 obstructive uropathy , diastolic CHF , hypertension , hyperlipidemia, hydronephrosis, anemia and was brought into the hospital with altered mental status and was recently admitted to [facility] a week ago with hyperglycemia and concerned as well of LISANDRO . Patient was treated for a UTI at that hospitalization and now presents with SOB and hypoglycemia with blood sugar in the 40s and patient is requiring 3-5 liters of nasal canula . Chest xray shows left lung opacities with concern for pneumonia and temp has ranged from 100.3- 98.3 and is tachycardic . overall tachycardia , fever and BP has been improving during this hospital course. Surgical history include ureteral dilation , review of systems . patient indorses SOB and cough , no sputum production , no diarrhea and no chest pains . Temperature of 97.1 currently with pulse 88 and BP 107/62 and setting 100% on 2 liters nasal canula. patient is altert and oriented and able to answer short questions , crackles in bases bilaterally . whitecount 13.7 that has come down from 20.7 on admission and platelet has come down to 148 from 210. Urine cultures shows deyanira , patient came in with a smith catheter , blood cultures is no growth to date , MRSA nares is negative . chest xray shows left lung hezy opacities which may represent pneumonia and doppler ultrasound showed no signs of DVT in lower extremities . plan would be to cover empirically for hospital aquired pneumonia due to recent [facility] visit , would forgo vancomycin due to negative MRSA nares , would continue Zosyn and start azithromycin for hospital aquired pneumonia coverage given the multifocal nature of the opacities , no need for fluconazole instead would recommend exchange of smith catheter if patient still requires smith . check procal serotinum level , check sputum culture that may need inducing . follow up on influenza, covid and RSV swab testing . 01/01: patient was unable to produce any sputum sample , unclear if patient is just unable to understand the request . still SOB however is setting 100% on 3 liters nasal canula . crackles in lungs bilaterally , mild edema in the legs. whitecount continues to come down . plan will be to continue Zosyn and azithromycin , acquire and induced sputum culture 01/02: sputum culture, growing normal respiratory syeda Plan: - continue ceftriaxone -MRSA negative -blood culture(12/29/24): Negative, no growth after 48 hours of incubation -urine culture from 12/29/2024: Yeast, not Diana albicans, likely contamination. No need for antifungal. -pending respiratory culture, influenza and COVID swab. -reviewed chest x-ray which showed left-sided lung obesity. -procalcitonin -on oxygen via nasal cannula, currently at 3-5 L. -continue IV fluid, continue to monitor urine output. -rest of the management as per hospitalist. Plan discussed with: Other CC Plasma Assessment Blood Product Administration S: [id number] MOISE FRANKEL MD Jan 03, 2025 23:47
[2025-01-04] VITALS (20 sets, daily range): BP systolic 110–140; BP diastolic 70–83; PULSE 82–96; RESP 16–20; TEMP 97.2–98.2; O2SAT 92–100
--- NOTE | 2025-01-04 08:11 | DVHPN2 ---
Progress Note - Dictate Date Seen: Jan 04, 2025 Medical Necessity Reason Pt with a Central, PICC or Fol: Yes The following are medically ne: Smith Catheter Reason for smith catheter: Strict I&O vital signs Vital Sign Date Time Temp Pulse Resp B/P (MAP) Pulse Ox O2 Delivery O2 Flow Rate FiO2 01/04/25 06:49 89 18 100 01/04/25 06:41 Room Air 0.0 01/04/25 06:41 21 01/04/25 05:45 126/79 01/04/25 05:00 97.2 97.2 Total Intake and Output 01/03/25 01/03/25 01/04/25 15:00 23:00 07:00 Intake Total 350 ml 500 ml 580 ml Output Total 600 ml 1400 ml Balance 350 ml -100 ml -820 ml medications Current Medications Medications Dose Ordered Sig/Wai Route Start Time Stop Time Status Last Admin Dose Admin Acetaminophen/ Hydrocodone Bitart 1 tab Q4HP PRN PO 12/29/24 09:15 Ondansetron HCl 4 mg Q4HP PRN IV 12/29/24 09:15 Docusate Sodium 100 mg BIDPRN PRN PO 12/29/24 09:15 Zinc Sulfate 220 mg DAILY PO 12/29/24 10:00 01/03/25 09:38 220 MG Ascorbic Acid 500 mg BID PO 12/29/24 10:00 01/03/25 21:15 500 MG Multivitamins 1 tab DAILY PO 12/29/24 10:00 01/03/25 09:38 1 TAB Acetaminophen 650 mg Q6HP PRN PO 12/29/24 09:15 12/30/24 08:58 650 MG Nitroglycerin 0.4 mg Q5MINP PRN SL 12/29/24 09:15 Morphine Sulfate 2 mg Q30M PRN IV 12/29/24 09:15 Amlodipine Besylate 10 mg DAILY PO 12/29/24 10:00 01/03/25 09:50 10 MG Tamsulosin HCl 0.4 mg QPM PO 12/29/24 18:00 01/03/25 17:26 0.4 MG Metoprolol Tartrate 5 mg Q4HPRN PRN IV 12/29/24 15:30 12/30/24 08:57 5 MG Insulin Human Regular IQ4HR SC 12/30/24 12:00 01/03/25 23:58 4 UNITS Dextrose 50 ml UD PRN IV 12/30/24 09:45 Albuterol 2.5 mg Q4HR NEB 12/30/24 14:00 01/04/25 06:41 2.5 MG Ipratropium [place] 0.5 mg Q4HR NEB 12/30/24 14:00 01/04/25 06:41 0.5 MG Diagnostic Test (Pha) 1 strip IQ4HR 12/30/24 16:00 01/04/25 04:10 1 STRIP Piperacillin Sod/ Tazobactam Sod 100 ml @ 25 mls/hr Q8HR IV 12/31/24 22:00 UNV Azithromycin 250 ml @ 125 mls/hr DAILY IV 01/01/25 10:00 01/03/25 09:37 125 MLS/HR Piperacillin Sod/ Tazobactam Sod 100 ml @ 25 mls/hr Q8HR IV 12/31/24 22:00 01/04/25 05:44 25 MLS/HR Atorvastatin Calcium 20 mg HS PO 01/01/25 22:00 01/03/25 21:15 20 MG Sodium Bicarbonate 650 mg TID PO 01/02/25 22:00 01/04/25 05:43 650 MG Furosemide 40 mg BIDD PO 01/03/25 18:00 01/04/25 05:45 40 MG laboratory and microbiology Test 01/04/25 06:27 Range/Units Serum Glucose Pending Assessment/Plan Subjective Seen and examined at the bedside within telemetry. Maintaining sinus rhythm upon telemetry review. Hemodynamics remain stable. Chart reviewed.. s/p PRBC transfusion. Being followed by Nephrology ASSESSMENT: This is a 44-year old male known outside to our practice who initially presented for altered mental status found to be hypoglycemic with initial serum glucose level of 44 which later improved status post Dextrose administration. It is of note, patient is on Glipizide outpatient which could have attributed to the underlying hypoglycemia. Patient was also found tachycardic and febrile with highest documented temperature of 101.4 in the setting of sepsis from underlying pneumonia with superimposing urinary tract infection as initial WBC count was found elevated at 16.5 with peak lactic acid level of 2.7. Initial creatinine level found elevated at 2.15 with an initial potassium level of 5.5. Initial magnesium level found to be 1.7. TSH level was found normal at 4.37. D-Dimer did reveal elevation at 1.00. Patient does have underlying history of diastolic heart failure which patient underwent Echocardiogram (12/20/2024 [facility]) revealing TDS, EF 65%, stage I diastolic dysfunction, RV size and function is normal. mild LA dilation. Both AV and MV are opening adequately, mild TR with RVSP 26 mmhg. At present, BNP level was found elevated at 319 however chest imaging reveals no evidence for vascular congestion. 12-lead electrocardiogram upon arrival revealed sinus tachycardia at 109 bpm with no acute ischemic changes. Initial HS troponin level was found unremarkable at 16. As the patient presented with tachycardia and previously known history of diastolic heart failure, Cardiology services were involved for cardiac aspects of care. Past medical history includes previous cerebral vascular accident with residual left sided hemiparesis, baseline poor functional status and bed bound, chronic kidney disease, obstructive uropathy status post cystoscopy with urethral dilation and dorsal slit (04/2024) in the setting of phimosis, chronic diastolic heart failure, urinary tract infections, diabetes mellitus II, hyperlipidemia, hypertension, hydronephrosis, and anemia Echocardiogram: (05/05/2024 [facility]) revealed LV EF is 60-65%, stage I diastolic d ysfunction, RV size and function is normal. Left Atrium: Left atrium is mildly dilated. No , No MS. Trace MR. Mild TR with RVSP 32 mmHg Echocardiogram: (06/09/2024 [facility]) revealed Left ventricle: Left ventricle is normal-sized with normal systolic function. LVEF was around 55%. There was no gross wall motion abnormality. Right ventricle was normal-sized with normal sy stolic function. Both atria were normal-sized. Aortic valve: Aortic valve is trileaflet. There was no aortic stenosis/insufficiency. There was no mitral regurgitation. There was trivial tricuspid regurgitation. Pulmonary valve was not well visualized. Right ventricular systolic pressure was around 30 mm Hg. There was no pericardial effusion Echocardiogram: (12/20/2024 [facility]) revealed TDS, EF 65%, stage I diastolic dysfunction, RV size and function is normal. mild LA dilation. Both AV and MV are opening adequately, mild TR with RVSP 26 mmhg. BLE Venous Duplex revealed IMPRESSION: 1. There is no sonographic evidence for DVT in the lower extremities. VQ Scan revealed IMPRESSION: 1. Normal perfusion. No evidence of pulmonary embolism. 2. Abnormal ventilation is likely due to multifocal airspace disease seen on recent radiographs. Echocardiogram reported: Left ventricle: Left ventricle was normal-sized with normal systolic function. LVEF was 64%. There was no gross wall motion abnormality. Right ventricle was normal-sized with normal systolic function. Both atria were normal-sized. Aortic valve was trileaflet. There was no aortic insufficiency/stenosis. There was trivial mitral/tricuspid regurgitation. There was no pulmonary valve insufficiency. Right ventricular systolic pressure was assessed at 34 mm Hg. There was no pericardial effusion. Symptomatic hypoglycemia, resolved Sepsis, in the setting of pneumonia/complicated UTI Sinus tachycardia, likely secondary to the above Abnormal D-Dimer, PE/DVT ruled out Chronic diastolic heart failure Baseline poor functional status Old history of previous CVA Residual left hemiparesis Chronic kidney disease Diabetes mellitus II Hyperlipidemia Hypertension Hyperkalemia Anemia, significant CARDIAC SUGGESTIONS FOR MANAGEMENT: Fluid volume management per Nephrology secondary to renal status Proceed with close observation for overt signs of fluid overload Proceed with strict intakes, outputs, and daily weights Proceed with close rate and rhythm surveillance Sustain Magnesium level greater than 2.0 Sustain Potassium level greater than 4.0 Follow up renal function and electrolytes Supplemental oxygen as warranted PRN Lopressor (IV) for rate control On IV antibiotic therapy Management of diabetes mellitus/hypoglycemia as per primary team Management of sepsis (pneumonia/UTI) as per primary team Management of chronic kidney disease as per Nephrology Management of co-morbidities per primary team Proceed with close hemodynamic surveillance Proceed with optimized blood pressure control Transfuse to sustain HGB level above 7.0 Management in telemetry Follow up storage consultant recommendations Will proceed to follow from a cardiac perspective Further recommendations per clinical progression All available diagnostic labs, EKG's, and images were personally reviewed Plan of care discussed with and agreed upon by patient / primary RN Prognosis: Guarded Thank you for allowing me to participate in the care of this patient. Further recommendations based on patients clinical course and progression, primary attending, and other consultants. Will continue to follow with primary attending. If you have any questions or concerns, please do not hesitate to contact me. A total of 55 minutes was spent reviewing the patient record, examining the patient, making a diagnostic and therapeutic plan, discussing this plan with me dical personnel, following up on diagnostic studies and following the patient for clinical stability excluding any and all procedures. At least 50% of this time was spent in direct, [id number] Plan discussed with: Other (nurse) CC Plasma Assessment Blood Product Administration S: [id number] FAN HAMEED MD Jan 04, 2025 08:11
[2025-01-04 08:14] LABS: Basophils # (auto) 0.1 10 ^3/uL (0-0.2); Basophils % (auto) 0.7 % (0.0-2.0); Eosinophils # (auto) 0.2 10 ^3/uL (0-0.8); Eosinophils % (auto) 1.9 % (0.0-7.0); Hematocrit 25.6 % (41.0-53.0); Hemoglobin 8.6 g/dL (13.5-17.5); Lymphocytes # (auto) 1.9 10 ^3/uL (0.4-5.4); Mean Corpuscular Hemoglobin 30.2 pg (28.0-32.0); Mean Corpuscular Hgb Conc. 33.8 g/dL (32.0-36.0); Mean Corpuscular Volume 89.3 fL (80.0-100.0); Monocytes # (auto) 1.3 10 ^3/uL (0-1.3); Monocytes % (auto) 13.5 % (0.0-12.0); Neutrophils # (auto) 6.1 10 ^3/uL (1.6-8.6); Neutrophils % (auto) 63.9 % (37.0-80.0); Nucleated Red Blood Cells % 0.1 %; Platelet Count (auto) 171 10^3/uL (140-450); Red Blood Cells 2.86 10^6/uL (4.5-5.90); Red Cell Distribution Width 17.5 % (11.8-14.3); White Blood Cell 9.6 10^3/uL (4.4-10.8)
[2025-01-04 08:15] LABS: Potassium 4.3 mmol/L (3.5-5.1)
[2025-01-04 08:16] LABS: Anion Gap 11 (5-15)
[2025-01-04 08:21] LABS: BUN/Creatinine Ratio 21.5 (10.0-20.0); Blood Urea Nitrogen 54 mg/dL (9-23); Calcium 8.1 mg/dL (8.7-10.4); Carbon Dioxide 17 mmol/L (20-31); Chloride 108 mmol/L (98-107); Glucose 82 mg/dL (74-106); Sodium 136 mmol/L (136-145)
--- NOTE | 2025-01-04 12:18 | DVHPN2 ---
Progress Note - Dictate Date Seen: Jan 04, 2025 Medical Necessity Reason Pt with a Central, PICC or Fol: Yes The following are medically ne: Smith Catheter Reason for smith catheter: Strict I&O vital signs Vital Sign Date Time Temp Pulse Resp B/P (MAP) Pulse Ox O2 Delivery O2 Flow Rate FiO2 01/04/25 10:01 140/83 01/04/25 10:00 95 Room Air 0.0 01/04/25 10:00 21 01/04/25 09:36 92 18 01/04/25 08:54 97.4 97.4 Total Intake and Output 01/03/25 01/03/25 01/04/25 15:00 23:00 07:00 Intake Total 350 ml 500 ml 580 ml Output Total 600 ml 1400 ml Balance 350 ml -100 ml -820 ml medications Current Medications Medications Dose Ordered Sig/Wai Route Start Time Stop Time Status Last Admin Dose Admin Acetaminophen/ Hydrocodone Bitart 1 tab Q4HP PRN PO 12/29/24 09:15 Ondansetron HCl 4 mg Q4HP PRN IV 12/29/24 09:15 Docusate Sodium 100 mg BIDPRN PRN PO 12/29/24 09:15 Zinc Sulfate 220 mg DAILY PO 12/29/24 10:00 01/04/25 10:01 220 MG Ascorbic Acid 500 mg BID PO 12/29/24 10:00 01/04/25 10:01 500 MG Multivitamins 1 tab DAILY PO 12/29/24 10:00 01/04/25 10:01 1 TAB Acetaminophen 650 mg Q6HP PRN PO 12/29/24 09:15 12/30/24 08:58 650 MG Nitroglycerin 0.4 mg Q5MINP PRN SL 12/29/24 09:15 Morphine Sulfate 2 mg Q30M PRN IV 12/29/24 09:15 Amlodipine Besylate 10 mg DAILY PO 12/29/24 10:00 01/04/25 10:01 10 MG Tamsulosin HCl 0.4 mg QPM PO 12/29/24 18:00 01/03/25 17:26 0.4 MG Metoprolol Tartrate 5 mg Q4HPRN PRN IV 12/29/24 15:30 12/30/24 08:57 5 MG Insulin Human Regular IQ4HR SC 12/30/24 12:00 01/03/25 23:58 4 UNITS Dextrose 50 ml UD PRN IV 12/30/24 09:45 Albuterol 2.5 mg Q4HR NEB 12/30/24 14:00 01/04/25 09:28 2.5 MG Ipratropium [place] 0.5 mg Q4HR NEB 12/30/24 14:00 01/04/25 09:29 0.5 MG Diagnostic Test (Pha) 1 strip IQ4HR 12/30/24 16:00 01/04/25 11:26 1 STRIP Piperacillin Sod/ Tazobactam Sod 100 ml @ 25 mls/hr Q8HR IV 12/31/24 22:00 UNV Azithromycin 250 ml @ 125 mls/hr DAILY IV 01/01/25 10:00 01/04/25 10:09 125 MLS/HR Piperacillin Sod/ Tazobactam Sod 100 ml @ 25 mls/hr Q8HR IV 12/31/24 22:00 01/04/25 05:44 25 MLS/HR Atorvastatin Calcium 20 mg HS PO 01/01/25 22:00 01/03/25 21:15 20 MG Sodium Bicarbonate 650 mg TID PO 01/02/25 22:00 01/04/25 05:43 650 MG Furosemide 40 mg BIDD PO 01/03/25 18:00 01/04/25 05:45 40 MG objective General Appearance: alert, no distress HEENT: EOMI, PERRLA, normal external inspect of ears, no icterus, no nasal drainage Neck: no carotid bruit, no jugular venous distention (JVD), no lymphadenopathy Chest: normal thorax Respiratory: clear to auscultation, normal air movement Cardiovascular: regular rate and rhythm, no diastolic murmur, no jugular venous distention (JVD), no rub, no systolic murmur Abdominal: soft, no hepatomegaly, no mass, no splenomegaly, no tenderness Genitourinary: grossly normal external Musculoskeletal: no joint tenderness, no swelling Extremities: normal pulses, no calf tenderness, no clubbing, no cyanosis, no edema Skin: no bruising, no jaundice, no rash Neurological: alert, No focal deficit laboratory and microbiology Laboratory Tests 01/04/25 06:27 Test 01/04/25 06:27 Range/Units Serum Glucose 82 74-106 mg/dL Problem List 1. Sepsis Monitor, IV fluids, IV abx, cardiology consult 2. Hypoglycemia Monitor, hypoglycemia treatment 3. DM II Monitor, wound care consult 4. Pneumonia Monitor, IV abx 5. Bed bound Monitor 6. Acute cystitis w/o hematuria Monitor, IV abx 7. Hx of CVA with residual deficits Monitor 8. CKD3b Monitor, nephrology consult 9. Acute hypoxic respiratory failure Monitor, med-neb treatments, pulmonary consult, IV antibiotics Assessment/Plan Subjective: Patient is awake and alert. Objective: Patient was admitted for sepsis related to pneumonia and UTI. Patient has acute on chronic diastolic heart failure and Cardiorenal syndrome. Creatinine is 2.51. Patient was seen by nephrology. Leukocytosis has resolved hemoglobin is 8.6 and stable. Plan: Continue diuretics. Continue antibiotics with zosyn and azithromycin. Patient is currently in 95% room air. He continues to have rhonchi throughout all lung perez. Lisinopril has been discontinued. Monitor renal function. Plan discussed with: Patient, Other CC Plasma Assessment Blood Product Administration S: [id number] RAÚL STEEL NP Jan 04, 2025 12:18
--- NOTE | 2025-01-04 13:25 | DVHPN2 ---
Progress Note - Dictate Date Seen: Jan 04, 2025 Medical Necessity Reason Pt with a Central, PICC or Fol: Yes The following are medically ne: Smith Catheter Reason for smith catheter: Strict I&O Subjective Chest congestion. vital signs Vital Sign Date Time Temp Pulse Resp B/P (MAP) Pulse Ox O2 Delivery O2 Flow Rate FiO2 01/04/25 10:01 140/83 01/04/25 10:00 95 Room Air 0.0 01/04/25 10:00 21 01/04/25 09:36 92 18 01/04/25 08:54 97.4 97.4 Total Intake and Output 01/03/25 01/03/25 01/04/25 15:00 23:00 07:00 Intake Total 350 ml 500 ml 580 ml Output Total 600 ml 1400 ml Balance 350 ml -100 ml -820 ml medications Current Medications Medications Dose Ordered Sig/Wai Route Start Time Stop Time Status Last Admin Dose Admin Acetaminophen/ Hydrocodone Bitart 1 tab Q4HP PRN PO 12/29/24 09:15 Ondansetron HCl 4 mg Q4HP PRN IV 12/29/24 09:15 Docusate Sodium 100 mg BIDPRN PRN PO 12/29/24 09:15 Zinc Sulfate 220 mg DAILY PO 12/29/24 10:00 01/04/25 10:01 220 MG Ascorbic Acid 500 mg BID PO 12/29/24 10:00 01/04/25 10:01 500 MG Multivitamins 1 tab DAILY PO 12/29/24 10:00 01/04/25 10:01 1 TAB Acetaminophen 650 mg Q6HP PRN PO 12/29/24 09:15 12/30/24 08:58 650 MG Nitroglycerin 0.4 mg Q5MINP PRN SL 12/29/24 09:15 Morphine Sulfate 2 mg Q30M PRN IV 12/29/24 09:15 Amlodipine Besylate 10 mg DAILY PO 12/29/24 10:00 01/04/25 10:01 10 MG Tamsulosin HCl 0.4 mg QPM PO 12/29/24 18:00 01/03/25 17:26 0.4 MG Metoprolol Tartrate 5 mg Q4HPRN PRN IV 12/29/24 15:30 12/30/24 08:57 5 MG Insulin Human Regular IQ4HR SC 12/30/24 12:00 01/03/25 23:58 4 UNITS Dextrose 50 ml UD PRN IV 12/30/24 09:45 Albuterol 2.5 mg Q4HR NEB 12/30/24 14:00 01/04/25 09:28 2.5 MG Ipratropium [place] 0.5 mg Q4HR NEB 12/30/24 14:00 01/04/25 09:29 0.5 MG Diagnostic Test (Pha) 1 strip IQ4HR 12/30/24 16:00 01/04/25 11:26 1 STRIP Piperacillin Sod/ Tazobactam Sod 100 ml @ 25 mls/hr Q8HR IV 12/31/24 22:00 UNV Azithromycin 250 ml @ 125 mls/hr DAILY IV 01/01/25 10:00 01/04/25 10:09 125 MLS/HR Piperacillin Sod/ Tazobactam Sod 100 ml @ 25 mls/hr Q8HR IV 12/31/24 22:00 01/04/25 05:44 25 MLS/HR Atorvastatin Calcium 20 mg HS PO 01/01/25 22:00 01/03/25 21:15 20 MG Sodium Bicarbonate 650 mg TID PO 01/02/25 22:00 01/04/25 05:43 650 MG Furosemide 40 mg BIDD PO 01/03/25 18:00 01/04/25 05:45 40 MG objective Gen: NAD HEENT: NC,AT Lungs: rales Cardiac: Tachycardia, no murmur Abd: soft, no tenderness Ext: no edema + Smith laboratory and microbiology Laboratory Tests 01/04/25 06:27 Test 01/04/25 06:27 Range/Units Serum Glucose 82 74-106 mg/dL Assessment/Plan LISANDRO: cardiorenal syndrome + Sepsis CKD III. (Baseline Cr: 1.6 mg/dl on May/2024) Acute hypoxic respiratory failure: Improved Sepsis secondary to pneumonia Acute on Chronic diastolic CHF Acute anemia Hypoglycemia , resolved lactic acidosis Hyperkalemia, resolved DM HTN HLD h/o CVA with residual left sided weakness bed bound Plan: Continue Lasix 40 mg IV BID DC Lisinopril Continue Sodium bicarb 650 mg PO TID monitor H&H and transfuse if Hb < 7 g/dl Continue IV antibiotics Pulmonary consult daily BMP, and Mg continue Amlodipine 10 mg PO daily strict I&Os Plan discussed with: Patient CC Plasma Assessment Blood Product Administration S: [id number] GISELE ABREU MD Jan 04, 2025 13:25
--- NOTE | 2025-01-04 13:57 | DVH ---
CHEST RADIOGRAPH Indication: re-eval pna Technique: Single frontal view of the chest was obtained COMPARISON: None FINDINGS: Lines and Tubes: None Lungs: Multifocal airspace disease. Pleura: No effusion. No pneumothorax. Cardiomediastinal contours: Unremarkable Bones: Unremarkable IMPRESSION: Slightly increased multifocal airspace disease.
--- NOTE | 2025-01-04 17:48 | DVH ---
RENAL ULTRASOUND CLINICAL HISTORY: LISANDRO do Renal US with PVR TECHNIQUE: Multiple ultrasound images of the kidneys and bladder were obtained. COMPARISON: 06/08/2024 FINDINGS: The right kidney measures 11.0 cm in length. The left kidney measures 11.4 cm. The kidneys demonstrat e appropriate echotexture without evidence of a discrete renal lesion, nephrolithiasis or hydronephro sis. There is a Lindsay catheter in the bladder which is decompressed limiting evaluation. IMPRESSION: 1. Unremarkable sonographic appearance of the kidneys. HS:Y
[2025-01-05] VITALS (22 sets, daily range): BP systolic 111–136; BP diastolic 74–79; PULSE 71–101; RESP 16–22; TEMP 97.4–98.3; O2SAT 95–100
--- NOTE | 2025-01-05 00:15 | DVHPN2 ---
Consult Progress Note Date Seen: Jan 04, 2025 Subjective Patient reports: Other (doing well on room air , not in any distress and cough appears resolved ) Objective vital signs Vital Sign Date Time Temp Pulse Resp B/P (MAP) Pulse Ox O2 Delivery O2 Flow Rate FiO2 01/04/25 21:48 89 16 96 01/04/25 21:42 Room Air* 0 21 01/04/25 17:23 110/70 01/04/25 17:00 98.2 98.2 Total Intake and Output 01/04/25 01/04/25 01/05/25 15:00 23:00 07:00 Intake Total 350 ml 500 ml Output Total 600 ml Balance 350 ml -100 ml medications Current Medications Medications Dose Ordered Sig/Wai Route Start Time Stop Time Status Last Admin Dose Admin Acetaminophen/ Hydrocodone Bitart 1 tab Q4HP PRN PO 12/29/24 09:15 Ondansetron HCl 4 mg Q4HP PRN IV 12/29/24 09:15 Docusate Sodium 100 mg BIDPRN PRN PO 12/29/24 09:15 Zinc Sulfate 220 mg DAILY PO 12/29/24 10:00 01/04/25 10:01 220 MG Ascorbic Acid 500 mg BID PO 12/29/24 10:00 01/04/25 21:31 500 MG Multivitamins 1 tab DAILY PO 12/29/24 10:00 01/04/25 10:01 1 TAB Acetaminophen 650 mg Q6HP PRN PO 12/29/24 09:15 12/30/24 08:58 650 MG Nitroglycerin 0.4 mg Q5MINP PRN SL 12/29/24 09:15 Morphine Sulfate 2 mg Q30M PRN IV 12/29/24 09:15 Amlodipine Besylate 10 mg DAILY PO 12/29/24 10:00 01/04/25 10:01 10 MG Tamsulosin HCl 0.4 mg QPM PO 12/29/24 18:00 01/04/25 17:23 0.4 MG Metoprolol Tartrate 5 mg Q4HPRN PRN IV 12/29/24 15:30 12/30/24 08:57 5 MG Insulin Human Regular IQ4HR SC 12/30/24 12:00 01/04/25 20:22 3 UNITS Dextrose 50 ml UD PRN IV 12/30/24 09:45 Albuterol 2.5 mg Q4HR NEB 12/30/24 14:00 01/04/25 21:42 2.5 MG Ipratropium [place] 0.5 mg Q4HR NEB 12/30/24 14:00 01/04/25 21:42 0.5 MG Diagnostic Test (Pha) 1 strip IQ4HR 12/30/24 16:00 01/04/25 20:15 1 STRIP Piperacillin Sod/ Tazobactam Sod 100 ml @ 25 mls/hr Q8HR IV 12/31/24 22:00 UNV Piperacillin Sod/ Tazobactam Sod 100 ml @ 25 mls/hr Q8HR IV 12/31/24 22:00 01/04/25 21:44 25 MLS/HR Atorvastatin Calcium 20 mg HS PO 01/01/25 22:00 01/04/25 21:31 20 MG Sodium Bicarbonate 650 mg TID PO 01/02/25 22:00 01/04/25 21:46 650 MG Furosemide 40 mg BIDD PO 01/03/25 18:00 01/04/25 17:23 40 MG Physical Exam General Appearance: Cooperative. Well developed. Well nourished. NAD Head Exam: Normal inspection Neck Exam: Normal inspection. Non-tender. Normal alignment Pulmonary/Respiratory: Chest non-tender. Bilateral lung base crackles. Cardiovascular/Chest: Regular rate and rhythm. No murmurs. No JVD. Peripheral Pulses: 2+ Radial (R). 2+ Radial (L). 2+ Pedal (R). 2+ Pedal (L) Abdominal Exam: Normal bowel sounds. Soft. Nontender. No hepatospenomegaly. No masses Ankle Exam: Negative ankle edema Lower extremities: Negative lower extremity edema Neuro/Mental Status: A&O x4. Coherent Thoughts/Psych: Normal thought pattern. Appropriate mood and affect. Good judgement and insight Appearance: In no acute distress Skin Exam: Normal inspection. Normal color. Warm. Dry laboratory and microbiology Laboratory Tests 01/04/25 06:27 Test 01/04/25 06:27 Range/Units Serum Glucose 82 74-106 mg/dL Problem List/Assessment/Plan Problems(with codes): (1) UTI (urinary tract infection) (2) Weakness (3) Hyperglycemia (4) Metabolic encephalopathy (5) Pneumonitis Problem List/Assessment/Plan Problem List/Assessment/Plan Sepsis in setting of pneumonia likely g negative Acute complicated UTI Hypoglycemia Ruled out PE Chronic diastolic heart failure History of CVA with residual left-sided weakness CKD stage 3 Diabetes mellitus type 2 Hypertension Hyperlipidemia Bed-bound Assessment: patient is a 44 year old male with a past medical history of cerebral palsy and related mental delay with bedridden diabetes and has a history of stroke with residual deficit CKD and stage 3 obstructive uropathy , diastolic CHF , hypertension , hyperlipidemia, hydronephrosis, anemia and was brought into the hospital with altered mental status and was recently admitted to [facility] a week ago with hyperglycemia and concerned as well of LISANDRO . Patient was treated for a UTI at that hospitalization and now presents with SOB and hypoglycemia with blood sugar in the 40s and patient is requiring 3-5 liters of nasal canula . Chest xray shows left lung opacities with concern for pneumonia and temp has ranged from 100.3- 98.3 and is tachycardic . overall tachycardia , fever and BP has been improving during this hospital course. Surgical history include ureteral dilation , review of systems . patient indorses SOB and cough , no sputum production , no diarrhea and no chest pains . Temperature of 97.1 currently with pulse 88 and BP 107/62 and setting 100% on 2 liters nasal canula. patient is altert and oriented and able to answer short questions , crackles in bases bilaterally . whitecount 13.7 that has come down from 20.7 on admission and platelet has come down to 148 from 210. Urine cultures shows deyanira , patient came in with a smith catheter , blood cultures is no growth to date , MRSA nares is negative . chest xray shows left lung hezy opacities which may represent pneumonia and doppler ultrasound showed no signs of DVT in lower extremities . plan would be to cover empirically for hospital aquired pneumonia due to recent [facility] visit , would forgo vancomycin due to negative MRSA nares , would continue Zosyn and start azithromycin for hospital aquired pneumonia coverage given the multifocal nature of the opacities , no need for fluconazole instead would recommend exchange of smith catheter if patient still requires smith . check procal serotinum level , check sputum culture that may need inducing . follow up on influenza, covid and RSV swab testing . 01/01: patient was unable to produce any sputum sample , unclear if patient is just unable to understand the request . still SOB however is setting 100% on 3 liters nasal canula . crackles in lungs bilaterally , mild edema in the legs. whitecount continues to come down . plan will be to continue Zosyn and azithromycin , acquire and induced sputum culture 01/02: sputum culture, growing normal respiratory syeda 01/03: hemaglobin 8.2 , whitecount 11.2 , having good urine output through catheter , responding to antibiotic therapy 01/04: patient appears to responding to antibiotics Plan: - Stop azithromycin after 4 day course - plan to transition to oral augmentine - continue ceftriaxone MRSA negative -blood culture(12/29/24): Negative, no growth after 48 hours of incubation -urine culture from 12/29/2024: Yeast, not Diana albicans, likely contamination. No need for antifungal. -pending respiratory culture, influenza and COVID swab. -reviewed chest x-ray which showed left-sided lung obesity. -procalcitonin -on oxygen via nasal cannula, currently at 3-5 L. -continue IV fluid, continue to monitor urine output. -rest of the management as per hospitalist. Plan discussed with: Other CC Plasma Assessment Blood Product Administration S: [id number] MOISE FRANKEL MD Jan 05, 2025 00:15
--- NOTE | 2025-01-05 06:45 | DVHPN2 ---
Progress Note - Dictate Date Seen: Jan 05, 2025 Medical Necessity Reason Pt with a Central, PICC or Fol: Yes The following are medically ne: Smith Catheter Reason for smith catheter: Strict I&O vital signs Vital Sign Date Time Temp Pulse Resp B/P (MAP) Pulse Ox O2 Delivery O2 Flow Rate FiO2 01/05/25 05:37 124/76 01/05/25 04:35 97.8 79 16 98 97.8 01/05/25 02:26 Room Air* 0 21 Total Intake and Output 01/04/25 01/04/25 01/05/25 15:00 23:00 07:00 Intake Total 350 ml 500 ml 300 ml Output Total 600 ml 850 ml Balance 350 ml -100 ml -550 ml medications Current Medications Medications Dose Ordered Sig/Wai Route Start Time Stop Time Status Last Admin Dose Admin Acetaminophen/ Hydrocodone Bitart 1 tab Q4HP PRN PO 12/29/24 09:15 Ondansetron HCl 4 mg Q4HP PRN IV 12/29/24 09:15 Docusate Sodium 100 mg BIDPRN PRN PO 12/29/24 09:15 Zinc Sulfate 220 mg DAILY PO 12/29/24 10:00 01/04/25 10:01 220 MG Ascorbic Acid 500 mg BID PO 12/29/24 10:00 01/04/25 21:31 500 MG Multivitamins 1 tab DAILY PO 12/29/24 10:00 01/04/25 10:01 1 TAB Acetaminophen 650 mg Q6HP PRN PO 12/29/24 09:15 12/30/24 08:58 650 MG Nitroglycerin 0.4 mg Q5MINP PRN SL 12/29/24 09:15 Morphine Sulfate 2 mg Q30M PRN IV 12/29/24 09:15 Amlodipine Besylate 10 mg DAILY PO 12/29/24 10:00 01/04/25 10:01 10 MG Tamsulosin HCl 0.4 mg QPM PO 12/29/24 18:00 01/04/25 17:23 0.4 MG Metoprolol Tartrate 5 mg Q4HPRN PRN IV 12/29/24 15:30 12/30/24 08:57 5 MG Insulin Human Regular IQ4HR SC 12/30/24 12:00 01/04/25 20:22 3 UNITS Dextrose 50 ml UD PRN IV 12/30/24 09:45 Albuterol 2.5 mg Q4HR NEB 12/30/24 14:00 01/05/25 02:26 2.5 MG Ipratropium [place] 0.5 mg Q4HR NEB 12/30/24 14:00 01/05/25 02:26 0.5 MG Diagnostic Test (Pha) 1 strip IQ4HR 12/30/24 16:00 01/05/25 04:26 1 STRIP Piperacillin Sod/ Tazobactam Sod 100 ml @ 25 mls/hr Q8HR IV 12/31/24 22:00 UNV Piperacillin Sod/ Tazobactam Sod 100 ml @ 25 mls/hr Q8HR IV 12/31/24 22:00 01/05/25 06:07 25 MLS/HR Atorvastatin Calcium 20 mg HS PO 01/01/25 22:00 01/04/25 21:31 20 MG Sodium Bicarbonate 650 mg TID PO 01/02/25 22:00 01/05/25 05:37 650 MG Furosemide 40 mg BIDD PO 01/03/25 18:00 01/05/25 05:37 40 MG laboratory and microbiology Test 01/05/25 05:49 Range/Units Serum Glucose Pending Assessment/Plan Subjective Seen and examined at the bedside within telemetry. Maintaining sinus rhythm upon telemetry review. Hemodynamics remain stable. Chart reviewed. Being followed by Nephrology/ID/Pulmonary ASSESSMENT: This is a 44-year old male known outside to our practice who initially presented for altered mental status found to be hypoglycemic with initial serum glucose level of 44 which later improved status post Dextrose administration. It is of note, patient is on Glipizide outpatient which could have attributed to the underlying hypoglycemia. Patient was also found tachycardic and febrile with highest documented temperature of 101.4 in the setting of sepsis from underlying pneumonia with superimposing urinary tract infection as initial WBC count was found elevated at 16.5 with peak lactic acid level of 2.7. Initial creatinine level found elevated at 2.15 with an initial potassium level of 5.5. Initial magnesium level found to be 1.7. TSH level was found normal at 4.37. D-Dimer did reveal elevation at 1.00. Patient does have underlying history of diastolic heart failure which patient underwent Echocardiogram (12/20/2024 [facility]) revealing TDS, EF 65%, stage I diastolic dysfunction, RV size and function is normal. mild LA dilation. Both AV and MV are opening adequately, mild TR with RVSP 26 mmhg. At present, BNP level was found elevated at 319 however chest imaging reveals no evidence for vascular congestion. 12-lead electrocardiogram upon arrival revealed sinus tachycardia at 109 bpm with no acute ischemic changes. Initial HS troponin level was found unremarkable at 16. As the patient presented with tachycardia and previously known history of diastolic heart failure, Cardiology services were involved for cardiac aspects of care. Past medical history includes previous cerebral vascular accident with residual left sided hemiparesis, baseline poor functional status and bed bound, chronic kidney disease, obstructive uropathy status post cystoscopy with urethral dilation and dorsal slit (04/2024) in the setting of phimosis, chronic diastolic heart failure, urinary tract infections, diabetes mellitus II, hyperlipidemia, hypertension, hydronephrosis, and anemia Echocardiogram: (05/05/2024 [facility]) revealed LV EF is 60-65%, stage I diastolic dysfunction, RV size and function is normal. Left Atrium: Left atrium is mildly dilated. No , No MS. Trace MR. Mild TR with RVSP 32 mmHg Echocardiogram: (06/09/2024 [facility]) revealed Left ventricle: Left ventricle is normal-sized with normal systolic function. LVEF was around 55%. There was no gross wall motion abnormality. Right ventricle was normal-sized with normal systolic function. Both atria were normal-sized. Aortic valve: Aortic valve is trileaflet. There was no aortic stenosis/insufficiency. There was no mitral regurgitation. There was trivial tricuspid regurgitation. Pulmonary valve was not well visualized. Right ventricular systolic pressure was around 30 mm Hg. There was no pericardial effusion Echocardiogram: (12/20/2024 [facility]) revealed TDS, EF 65%, stage I diastolic dysfunction, RV size and function is normal. mild LA dilation. Both AV and MV are opening adequately, mild TR with RVSP 26 mmhg. BLE Venous Duplex revealed IMPRESSION: 1. There is no sonographic evidence for DVT in the lower extremities. VQ Scan revealed IMPRESSION: 1. Normal perfusion. No evidence of pulmonary embolism. 2. Abnormal ventilation is likely due to multifocal airspace disease seen on recent radiographs. Echocardiogram reported: Left ventricle: Left ventricle was normal-sized with normal systolic function. LVEF was 64%. There was no gross wall motion abnormality. Right ventricle was normal-sized with normal systolic function. Both atria were normal-sized. Aortic valve was trileaflet. There was no aortic insufficiency/stenosis. There was trivial mitral/tricuspid regurgitation. There was no pulmonary valve insufficiency. Right ventricular systolic pressure was assessed at 34 mm Hg. There was no pericardial effusion. Symptomatic hypoglycemia, resolved Sepsis, in the setting of pneumonia/complicated UTI Sinus tachycardia, likely secondary to the above Abnormal D-Dimer, PE/DVT ruled out Chronic diastolic heart failure Baseline poor functional status Old history of previous CVA Residual left hemiparesis Chronic kidney disease Diabetes mellitus II Hyperlipidemia Hypertension Hyperkalemia Anemia, significant CARDIAC SUGGESTIONS FOR MANAGEMENT: Fluid volume management per Nephrology secondary to renal status Proceed with close observation for overt signs of fluid overload Proceed with strict intakes, outputs, and daily weights Proceed with close rate and rhythm surveillance Sustain Magnesium level greater than 2.0 Sustain Potassium level greater than 4.0 Follow up renal function and electrolytes Supplemental oxygen as warranted PRN Lopressor (IV) for rate control On IV antibiotic therapy Management of diabetes mellitus/hypoglycemia as per primary team Management of sepsis (pneumonia/UTI) as per primary team Management of chronic kidney disease as per Nephrology Management of co-morbidities per primary team Proceed with close hemodynamic surveillance Proceed with optimized blood pressure control Transfuse to sustain HGB level above 7.0 Management in telemetry Follow up senior sustainability consultant recommendations Will proceed to follow from a cardiac perspective Further recommendations per clinical progression All available diagnostic labs, EKG's, and images were personally reviewed Plan of care discussed with and agreed upon by patient / primary RN Prognosis: Guarded Thank you for allowing me to participate in the care of this patient. Further recommendations based on patients clinical course and progression, primary attending, and other consultants. Will continue to follow with primary atten ding. If you have any questions or concerns, please do not hesitate to contact me. A total of 55 minutes was spent reviewing the patient record, examining the patient, making a diagnostic and therapeutic plan, discussing this plan with medical personnel, following up on diagnostic studies and following the patient for clinical stability excluding any and all procedures. At least 50% of this time was spent in direct, [id number] Plan discussed with: Other (nurse) CC Plasma Assessment Blood Product Administration S: [id number] FAN HAMEED MD Jan 05, 2025 06:45
[2025-01-05 07:11] LABS: Basophils # (auto) 0.1 10 ^3/uL (0-0.2); Eosinophils # (auto) 0.4 10 ^3/uL (0-0.8); Eosinophils % (auto) 3.9 % (0.0-7.0); Hematocrit 26.5 % (41.0-53.0); Hemoglobin 8.6 g/dL (13.5-17.5); Lymphocytes # (auto) 1.8 10 ^3/uL (0.4-5.4); Lymphocytes % (auto) 19.1 % (10.0-50.0); Mean Corpuscular Hgb Conc. 32.4 g/dL (32.0-36.0); Mean Corpuscular Volume 89.4 fL (80.0-100.0); Monocytes # (auto) 1.2 10 ^3/uL (0-1.3); Monocytes % (auto) 13.2 % (0.0-12.0); Neutrophils # (auto) 5.8 10 ^3/uL (1.6-8.6); Neutrophils % (auto) 62.8 % (37.0-80.0); Platelet Count (auto) 202 10^3/uL (140-450); Red Blood Cells 2.97 10^6/uL (4.5-5.90); Red Cell Distribution Width 17.5 % (11.8-14.3); White Blood Cell 9.3 10^3/uL (4.4-10.8)
[2025-01-05 07:12] LABS: Anion Gap 12 (5-15); Potassium 3.9 mmol/L (3.5-5.1); Sodium 138 mmol/L (136-145)
[2025-01-05 07:18] LABS: Glucose 96 mg/dL (74-106)
[2025-01-05 07:33] LABS: Calcium 8.4 mg/dL (8.7-10.4); Carbon Dioxide 18 mmol/L (20-31); Chloride 108 mmol/L (98-107)
[2025-01-05 07:34] LABS: BUN/Creatinine Ratio 24.1 (10.0-20.0); Blood Urea Nitrogen 56 mg/dL (9-23)
[2025-01-05] MEDS ORDERED: DEXTROSE (50%) 50ML SYRG IV PRN (09:45)
--- NOTE | 2025-01-05 09:48 | DVHPN2 ---
Progress Note - Dictate Date Seen: Jan 05, 2025 Medical Necessity Reason Pt with a Central, PICC or Fol: Yes The following are medically ne: Simth Catheter Reason for smith catheter: Strict I&O vital signs Vital Sign Date Time Temp Pulse Resp B/P (MAP) Pulse Ox O2 Delivery O2 Flow Rate FiO2 01/05/25 09:40 130/79 01/05/25 09:00 97.6 90 20 96 97.6 01/05/25 08:00 Room Air* 0 21 Total Intake and Output 01/04/25 01/04/25 01/05/25 14:59 22:59 06:59 Intake Total 350 ml 500 ml 300 ml Output Total 600 ml 850 ml Balance 350 ml -100 ml -550 ml medications Current Medications Medications Dose Ordered Sig/Wai Route Start Time Stop Time Status Last Admin Dose Admin Acetaminophen/ Hydrocodone Bitart 1 tab Q4HP PRN PO 12/29/24 09:15 Ondansetron HCl 4 mg Q4HP PRN IV 12/29/24 09:15 Docusate Sodium 100 mg BIDPRN PRN PO 12/29/24 09:15 Zinc Sulfate 220 mg DAILY PO 12/29/24 10:00 01/05/25 09:38 220 MG Ascorbic Acid 500 mg BID PO 12/29/24 10:00 01/05/25 09:38 500 MG Multivitamins 1 tab DAILY PO 12/29/24 10:00 01/05/25 09:38 1 TAB Acetaminophen 650 mg Q6HP PRN PO 12/29/24 09:15 12/30/24 08:58 650 MG Nitroglycerin 0.4 mg Q5MINP PRN SL 12/29/24 09:15 Morphine Sulfate 2 mg Q30M PRN IV 12/29/24 09:15 Amlodipine Besylate 10 mg DAILY PO 12/29/24 10:00 01/05/25 09:40 10 MG Tamsulosin HCl 0.4 mg QPM PO 12/29/24 18:00 01/04/25 17:23 0.4 MG Metoprolol Tartrate 5 mg Q4HPRN PRN IV 12/29/24 15:30 12/30/24 08:57 5 MG Dextrose 50 ml UD PRN IV 12/30/24 09:45 Albuterol 2.5 mg Q4HR NEB 12/30/24 14:00 01/05/25 06:56 2.5 MG Ipratropium [place] 0.5 mg Q4HR NEB 12/30/24 14:00 01/05/25 06:56 0.5 MG Diagnostic Test (Pha) 1 strip IQ4HR 12/30/24 16:00 01/05/25 08:00 1 STRIP Piperacillin Sod/ Tazobactam Sod 100 ml @ 25 mls/hr Q8HR IV 12/31/24 22:00 UNV Piperacillin Sod/ Tazobactam Sod 100 ml @ 25 mls/hr Q8HR IV 12/31/24 22:00 01/05/25 06:07 25 MLS/HR Atorvastatin Calcium 20 mg HS PO 01/01/25 22:00 01/04/25 21:31 20 MG Sodium Bicarbonate 650 mg TID PO 01/02/25 22:00 01/05/25 05:37 650 MG Furosemide 40 mg BIDD PO 01/03/25 18:00 01/05/25 05:37 40 MG Diagnostic Test (Pha) 1 strip ACHS 01/05/25 11:30 UNV Insulin Human Regular ACHS SC 01/05/25 11:30 UNV Dextrose 50 ml UD PRN IV 01/05/25 09:45 UNV objective General Appearance: alert, no distress HEENT: EOMI, PERRLA, normal external inspect of ears, no icterus, no nasal drainage Neck: no carotid bruit, no jugular venous distention (JVD), no lymphadenopathy Chest: normal thorax Respiratory: clear to auscultation, normal air movement Cardiovascular: regular rate and rhythm, no diastolic murmur, no jugular venous distention (JVD), no rub, no systolic murmur Abdominal: soft, no hepatomegaly, no mass, no splenomegaly, no tenderness Genitourinary: grossly normal external Musculoskeletal: no joint tenderness, no swelling Extremities: normal pulses, no calf tenderness, no clubbing, no cyanosis, no edema Skin: no bruising, no jaundice, no rash Neurological: alert, No focal deficit laboratory and microbiology Laboratory Tests 01/05/25 05:49 Test 01/05/25 05:49 Range/Units Serum Glucose 96 74-106 mg/dL Problem List 1. Sepsis Monitor, IV fluids, IV abx, cardiology consult 2. Hypoglycemia Monitor, hypoglycemia treatment 3. DM II Monitor, wound care consult 4. Pneumonia Monitor, IV abx 5. Bed bound Monitor 6. Acute cystitis w/o hematuria Monitor, IV abx 7. Hx of CVA with residual deficits Monitor 8. CKD3b Monitor, nephrology consult 9. Acute hypoxic respiratory failure Monitor, med-neb treatments, pulmonary consult, IV antibiotics Assessment/Plan Subjective Patient is awake and alert. Objective Patient had incidence of hypoglycemia. Insulin sliding scale was adjusted to AC and HS. Creatinine is 2.3 and stable. Patient is on antibiotics with zosyn for UTI. Plan Continue current treatment. Chest XR looks slightly worsened. Monitor daily labs. Continue to wean off O2 if tolerated. Plan discussed with: Patient, Other CC Plasma Assessment Blood Product Administration S: [id number] RAÚL STEEL NP Jan 05, 2025 09:48
--- NOTE | 2025-01-05 11:15 | DVHPN2 ---
Progress Note - Dictate Date Seen: Jan 04, 2025 Medical Necessity Reason Pt with a Central, PICC or Fol: Yes The following are medically ne: Smith Catheter Reason for smith catheter: Strict I&O Subjective Patient seen and examined at bedside. Remains on supplemental oxygen Overnight events reviewed. vital signs Vital Sign Date Time Temp Pulse Resp B/P (MAP) Pulse Ox O2 Delivery O2 Flow Rate FiO2 01/05/25 11:05 88 16 130/79 100 01/05/25 10:00 Room Air 0.0 01/05/25 10:00 21 01/05/25 09:00 97.6 97.6 Total Intake and Output 01/04/25 01/04/25 01/05/25 15:00 23:00 07:00 Intake Total 350 ml 500 ml 300 ml Output Total 600 ml 850 ml Balance 350 ml -100 ml -550 ml medications Current Medications Medications Dose Ordered Sig/Wai Route Start Time Stop Time Status Last Admin Dose Admin Acetaminophen/ Hydrocodone Bitart 1 tab Q4HP PRN PO 12/29/24 09:15 Ondansetron HCl 4 mg Q4HP PRN IV 12/29/24 09:15 Docusate Sodium 100 mg BIDPRN PRN PO 12/29/24 09:15 Zinc Sulfate 220 mg DAILY PO 12/29/24 10:00 01/05/25 09:38 220 MG Ascorbic Acid 500 mg BID PO 12/29/24 10:00 01/05/25 09:38 500 MG Multivitamins 1 tab DAILY PO 12/29/24 10:00 01/05/25 09:38 1 TAB Acetaminophen 650 mg Q6HP PRN PO 12/29/24 09:15 12/30/24 08:58 650 MG Nitroglycerin 0.4 mg Q5MINP PRN SL 12/29/24 09:15 Morphine Sulfate 2 mg Q30M PRN IV 12/29/24 09:15 Amlodipine Besylate 10 mg DAILY PO 12/29/24 10:00 01/05/25 09:40 10 MG Tamsulosin HCl 0.4 mg QPM PO 12/29/24 18:00 01/04/25 17:23 0.4 MG Metoprolol Tartrate 5 mg Q4HPRN PRN IV 12/29/24 15:30 12/30/24 08:57 5 MG Dextrose 50 ml UD PRN IV 12/30/24 09:45 Albuterol 2.5 mg Q4HR NEB 12/30/24 14:00 01/05/25 10:20 2.5 MG Ipratropium [place] 0.5 mg Q4HR NEB 12/30/24 14:00 01/05/25 10:20 0.5 MG Diagnostic Test (Pha) 1 strip IQ4HR 12/30/24 16:00 01/05/25 08:00 1 STRIP Piperacillin Sod/ Tazobactam Sod 100 ml @ 25 mls/hr Q8HR IV 12/31/24 22:00 UNV Piperacillin Sod/ Tazobactam Sod 100 ml @ 25 mls/hr Q8HR IV 12/31/24 22:00 01/05/25 06:07 25 MLS/HR Atorvastatin Calcium 20 mg HS PO 01/01/25 22:00 01/04/25 21:31 20 MG Sodium Bicarbonate 650 mg TID PO 01/02/25 22:00 01/05/25 05:37 650 MG Furosemide 40 mg BIDD PO 01/03/25 18:00 01/05/25 05:37 40 MG Diagnostic Test (Pha) 1 strip ACHS 01/05/25 11:30 UNV Insulin Human Regular ACHS SC 01/05/25 11:30 UNV Dextrose 50 ml UD PRN IV 01/05/25 09:45 UNV objective Gen.: Patient lying in bed in no apparent distress. On supplemental oxygen. Head: Normocephalic, atraumatic. Eyes: EOMI/PERRLA. Ears: Normal hearing. Normal anatomy. Neck/trachea: Trachea midline, supple. Nose: Normal external anatomy. Mouth: Moist mucous membranes. Chest: Decreased air entry bilaterally. No wheezing or rhonchi. Cardiovascular: Positive S1, positive S2. Regular rate and rhythm. Abdomen: Positive bowel sounds in all 4 quadrants. Soft, non-tender, non- distended. : Deferred. Rectal: Deferred. Skin: Warm, dry. Intact. Extremities: 2+ radial pulses bilaterally. No lower extremity edema. Neuro: Awake, alert, oriented x3. No gross motor or sensory deficits. Cranial nerves II through XII intact. Gait not assessed. laboratory and microbiology Laboratory Tests 01/05/25 05:49 Test 2/11/25 05:49 Range/Units Serum Glucose 96 74-106 mg/dL Assessment/Plan Impression: Acute hypoxic respiratory failure Dependence on supplemental oxygen Sepsis DM type II w/ hypoglycemia Urinary tract infection CVA with left-sided deficits Pneumonia, likely gram negative Cachexia, BMI 13.9 Events: On room air Continue with Head of bed elevation and Aspiration precautions Continue bronchodilators Complete antibiotic course. ID recommendations appreciated. Vitamin supplementation Monitor hemoglobin, stable 8.6 g/dL Monitor WBC WBC wnl. Cardiology recommendations appreciated. Maintain euvolemia Monitor renal function. Monitor electrolytes. Supplement as necessary. Monitor ins and outs. Nephrology recommendations appreciated Dispo per hospitalist Labs and imaging reviewed. Rest of plan as noted below. Plan: Supplemental oxygen PRN Keep O2 sats above 92%. Head of bed elevation Aspiration precautions. NTS Continue bronchodilators. Continue antibiotics Accu-Cheks for glycemic monitoring DVT prophylaxis. Prognosis: Guarded given patient's multiple co-morbidities. Rest of plan per hospitalist and other consultants. Thank you, ANITHA Vergara, for allowing me to participate in this patient's care. Further recommendations will depend on the patient's clinical course. Please do not hesitate to contact me if you have any questions or concerns. This medical document was created using an electronic medical record system with [employer] dictation system. Although these documentations are being carefully reviewed, there may still be some phonetic and typographical changes. The errors are purely typographical, due to imperfection on the software program, and do not reflect any compromise in the patient's medical care. Plan discussed with: Other (RN, REHABILITATION MANAGER) CC Plasma Assessment Blood Product Administration S: [id number] EDGARDO CULLEN MD Jan 05, 2025 11:15
[2025-01-05] MEDS: ACCU-CHEK COMFORT CURVE STRIP VI SCH (11:30)
[2025-01-05] MEDS: InsuLIN REG 1unit/0.01ml Soln (100units/ml) SC SCH (13:35)
--- NOTE | 2025-01-05 15:48 | DVHPN2 ---
Progress Note - Dictate Date Seen: Jan 05, 2025 Medical Necessity Reason Pt with a Central, PICC or Fol: Yes The following are medically ne: Smith Catheter Reason for smith catheter: Strict I&O Subjective Chest congestion. vital signs Vital Sign Date Time Temp Pulse Resp B/P (MAP) Pulse Ox O2 Delivery O2 Flow Rate FiO2 01/05/25 14:53 71 16 100 01/05/25 13:00 98.0 126/78 (94) 98.0 01/05/25 10:00 Room Air 0.0 01/05/25 10:00 21 Total Intake and Output 01/04/25 01/04/25 01/05/25 15:00 23:00 07:00 Intake Total 350 ml 500 ml 300 ml Output Total 600 ml 850 ml Balance 350 ml -100 ml -550 ml medications Current Medications Medications Dose Ordered Sig/Wai Route Start Time Stop Time Status Last Admin Dose Admin Acetaminophen/ Hydrocodone Bitart 1 tab Q4HP PRN PO 12/29/24 09:15 Ondansetron HCl 4 mg Q4HP PRN IV 12/29/24 09:15 Docusate Sodium 100 mg BIDPRN PRN PO 12/29/24 09:15 Zinc Sulfate 220 mg DAILY PO 12/29/24 10:00 01/05/25 09:38 220 MG Ascorbic Acid 500 mg BID PO 12/29/24 10:00 01/05/25 09:38 500 MG Multivitamins 1 tab DAILY PO 12/29/24 10:00 01/05/25 09:38 1 TAB Acetaminophen 650 mg Q6HP PRN PO 12/29/24 09:15 12/30/24 08:58 650 MG Nitroglycerin 0.4 mg Q5MINP PRN SL 12/29/24 09:15 Morphine Sulfate 2 mg Q30M PRN IV 12/29/24 09:15 Amlodipine Besylate 10 mg DAILY PO 12/29/24 10:00 01/05/25 09:40 10 MG Tamsulosin HCl 0.4 mg QPM PO 12/29/24 18:00 01/04/25 17:23 0.4 MG Metoprolol Tartrate 5 mg Q4HPRN PRN IV 12/29/24 15:30 12/30/24 08:57 5 MG Albuterol 2.5 mg Q4HR NEB 12/30/24 14:00 01/05/25 14:43 2.5 MG Ipratropium [place] 0.5 mg Q4HR NEB 12/30/24 14:00 01/05/25 14:43 0.5 MG Piperacillin Sod/ Tazobactam Sod 100 ml @ 25 mls/hr Q8HR IV 12/31/24 22:00 UNV Piperacillin Sod/ Tazobactam Sod 100 ml @ 25 mls/hr Q8HR IV 12/31/24 22:00 01/05/25 13:15 25 MLS/HR Atorvastatin Calcium 20 mg HS PO 01/01/25 22:00 01/04/25 21:31 20 MG Sodium Bicarbonate 650 mg TID PO 01/02/25 22:00 01/05/25 13:15 650 MG Furosemide 40 mg BIDD PO 01/03/25 18:00 01/05/25 05:37 40 MG Diagnostic Test (Pha) 1 strip ACHS 01/05/25 11:30 01/05/25 11:30 1 STRIP Insulin Human Regular ACHS SC 01/05/25 11:30 01/05/25 13:35 3 UNITS Dextrose 50 ml UD PRN IV 01/05/25 09:45 objective Gen: NAD HEENT: NC,AT Lungs: Bilateral rales Cardiac: Tachycardia, no murmur Abd: soft, no tenderness Ext: no edema + Smith laboratory and microbiology Laboratory Tests 01/05/25 05:49 Test 01/05/25 05:49 Range/Units Serum Glucose 96 74-106 mg/dL Assessment/Plan Assessment: LISANDRO: cardiorenal syndrome + Sepsis CKD III. (Baseline Cr: 1.6 mg/dl on May/2024) Acute hypoxic respiratory failure: Improved Sepsis secondary to pneumonia Acute on Chronic diastolic CHF Acute anemia Hypoglycemia , resolved lactic acidosis Hyperkalemia, resolved DM HTN HLD h/o CVA with residual left sided weakness bed bound Plan: Continue Lasix 40 mg IV BID DC Lisinopril Continue Sodium bicarb 650 mg PO TID monitor H&H and transfuse if Hb < 7 g/dl Continue IV antibiotics Pulmonary consult daily BMP, and Mg continue Amlodipine 10 mg PO daily strict I&Os Plan discussed with: Patient CC Plasma Assessment Blood Product Administration S: [id number] GISELE ABREU MD Jan 05, 2025 15:48
--- NOTE | 2025-01-05 21:09 | DVHPN2 ---
Progress Note - Dictate Date Seen: Jan 05, 2025 Medical Necessity Reason Pt with a Central, PICC or Fol: Yes The following are medically ne: Smith Catheter Reason for smith catheter: Strict I&O Subjective Patient seen and examined at bedside. Currently on room air. Overnight events reviewed. vital signs Vital Sign Date Time Temp Pulse Resp B/P (MAP) Pulse Ox O2 Delivery O2 Flow Rate FiO2 01/05/25 21:00 98.3 99 20 136/75 (95) 99 98.3 01/05/25 19:10 Room Air* 0 21 Total Intake and Output 01/04/25 01/04/25 01/05/25 15:00 23:00 07:00 Intake Total 350 ml 500 ml 300 ml Output Total 600 ml 850 ml Balance 350 ml -100 ml -550 ml medications Current Medications Medications Dose Ordered Sig/Wai Route Start Time Stop Time Status Last Admin Dose Admin Acetaminophen/ Hydrocodone Bitart 1 tab Q4HP PRN PO 12/29/24 09:15 Ondansetron HCl 4 mg Q4HP PRN IV 12/29/24 09:15 Docusate Sodium 100 mg BIDPRN PRN PO 12/29/24 09:15 Zinc Sulfate 220 mg DAILY PO 12/29/24 10:00 01/05/25 09:38 220 MG Ascorbic Acid 500 mg BID PO 12/29/24 10:00 01/05/25 09:38 500 MG Multivitamins 1 tab DAILY PO 12/29/24 10:00 01/05/25 09:38 1 TAB Acetaminophen 650 mg Q6HP PRN PO 12/29/24 09:15 12/30/24 08:58 650 MG Nitroglycerin 0.4 mg Q5MINP PRN SL 12/29/24 09:15 Morphine Sulfate 2 mg Q30M PRN IV 12/29/24 09:15 Amlodipine Besylate 10 mg DAILY PO 12/29/24 10:00 01/05/25 09:40 10 MG Tamsulosin HCl 0.4 mg QPM PO 12/29/24 18:00 01/05/25 17:58 0.4 MG Metoprolol Tartrate 5 mg Q4HPRN PRN IV 12/29/24 15:30 12/30/24 08:57 5 MG Albuterol 2.5 mg Q4HR NEB 12/30/24 14:00 01/05/25 19:13 2.5 MG Ipratropium [place] 0.5 mg Q4HR NEB 12/30/24 14:00 01/05/25 19:13 0.5 MG Piperacillin Sod/ Tazobactam Sod 100 ml @ 25 mls/hr Q8HR IV 12/31/24 22:00 UNV Piperacillin Sod/ Tazobactam Sod 100 ml @ 25 mls/hr Q8HR IV 12/31/24 22:00 01/05/25 13:15 25 MLS/HR Atorvastatin Calcium 20 mg HS PO 01/01/25 22:00 01/04/25 21:31 20 MG Sodium Bicarbonate 650 mg TID PO 01/02/25 22:00 01/05/25 13:15 650 MG Furosemide 40 mg BIDD PO 01/03/25 18:00 01/05/25 17:58 40 MG Diagnostic Test (Pha) 1 strip ACHS 01/05/25 11:30 01/05/25 16:26 1 STRIP Insulin Human Regular ACHS SC 01/05/25 11:30 01/05/25 16:26 2 UNITS Dextrose 50 ml UD PRN IV 01/05/25 09:45 objective Gen.: Patient lying in bed in no apparent distress. On room air. Head: Normocephalic, atraumatic. Eyes: EOMI/PERRLA. Ears: Normal hearing. Normal anatomy. Neck/trachea: Trachea midline, supple. Nose: Normal external anatomy. Mouth: Moist mucous membranes. Chest: Decreased air entry bilaterally. No wheezing or rhonchi. Cardiovascular: Positive S1, positive S2. Regular rate and rhythm. Abdomen: Positive bowel sounds in all 4 quadrants. Soft, non-tender, non- distended. : Deferred. Rectal: Deferred. Skin: Warm, dry. Intact. Extremities: 2+ radial pulses bilaterally. No lower extremity edema. Neuro: Awake, alert, oriented x3. No gross motor or sensory deficits. Cranial nerves II through XII intact. Gait not assessed. laboratory and microbiology Laboratory Tests 01/05/25 05:49 Test 01/05/25 05:49 Range/Units Serum Glucose 96 74-106 mg/dL Assessment/Plan Impression: Acute hypoxic respiratory failure Sepsis DM type II w/ hypoglycemia Urinary tract infection CVA with left-sided deficits Pneumonia, likely gram negative Cachexia, BMI 13.9 Events: On room air Supplemental oxygen PRN Continue with head of bed elevation and aspiration precautions Continue bronchodilators Complete antibiotic course. ID recommendations appreciated. Vitamin supplementation Cardiology recommendations appreciated Monitor hemoglobin, stable 8.6 g/dL Monitor WBC WBC wnl. Cardiology recommendations appreciated. Maintain euvolemia Monitor renal function. Monitor electrolytes. Supplement as necessary. Monitor ins and outs. Nephrology recommendations appreciated NTS PRN. Dispo per hospitalist Labs and imaging reviewed. Rest of plan as noted below. Plan: Supplemental oxygen PRN Keep O2 sats above 92%. Head of bed elevation Aspiration precautions. NTS Continue bronchodilators. Continue antibiotics Accu-Cheks for glycemic monitoring DVT prophylaxis. Prognosis: Guarded given patient's multiple co-morbidities. Rest of plan per hospitalist and other consultants. Thank you, ANITHA Vergara, for allowing me to participate in this patient's care. Further recommendations will depend on the patient's clinical course. Please do not hesitate to contact me if you have any questions or concerns. This medical document was created using an electronic medical record system with [employer] dictation system. Although these documentations are being carefully reviewed, there may still be some phonetic and typographical changes. The errors are purely typographical, due to imperfection on the software program, and do not reflect any compromise in the patient's medical care. Plan discussed with: Patient, Other (CARMEN Stiles) CC Plasma Assessment Blood Product Administration S: [id number] EDGARDO CULLEN MD Jan 05, 2025 21:09
[2025-01-06] VITALS (21 sets, daily range): BP systolic 129–156; BP diastolic 71–94; PULSE 71–102; RESP 12–21; TEMP 98–98.9; O2SAT 90–100
--- NOTE | 2025-01-06 05:42 | DVH ---
EXAM: XR Chest, 1 View CLINICAL INDICATION: CHF/PNA TECHNIQUE: Frontal view of the chest. COMPARISON: None FINDINGS: LUNGS AND PLEURAL SPACES: Pulmonary congestion and edema. Superimposed pneumonia can not be exclud ed. No pneumothorax. HEART: Unremarkable. No cardiomegaly. MEDIASTINUM: Unremarkable. Normal mediastinal contour. BONES/JOINTS: Unremarkable. No acute fracture. OTHER FINDINGS: . None. . .. IMPRESSION: Pulmonary congestion and edema. Superimposed pneumonia can not be excluded.
--- NOTE | 2025-01-06 06:38 | DVHPN2 ---
Progress Note - Dictate Date Seen: Jan 06, 2025 Medical Necessity Reason Pt with a Central, PICC or Fol: Yes The following are medically ne: Smith Catheter Reason for smith catheter: Strict I&O vital signs Vital Sign Date Time Temp Pulse Resp B/P (MAP) Pulse Ox O2 Delivery O2 Flow Rate FiO2 01/06/25 06:25 99 Room Air* 0 21 01/06/25 06:25 83 16 01/06/25 06:10 129/71 01/06/25 05:00 98.3 98.3 Total Intake and Output 01/05/25 01/05/25 01/06/25 15:00 23:00 07:00 Intake Total 270 ml 270 ml 200 ml Output Total 1050 ml 650 ml Balance 270 ml -780 ml -450 ml medications Current Medications Medications Dose Ordered Sig/Wai Route Start Time Stop Time Status Last Admin Dose Admin Acetaminophen/ Hydrocodone Bitart 1 tab Q4HP PRN PO 12/29/24 09:15 Ondansetron HCl 4 mg Q4HP PRN IV 12/29/24 09:15 Docusate Sodium 100 mg BIDPRN PRN PO 12/29/24 09:15 Zinc Sulfate 220 mg DAILY PO 12/29/24 10:00 01/05/25 09:38 220 MG Ascorbic Acid 500 mg BID PO 12/29/24 10:00 01/05/25 22:07 500 MG Multivitamins 1 tab DAILY PO 12/29/24 10:00 01/05/25 09:38 1 TAB Acetaminophen 650 mg Q6HP PRN PO 12/29/24 09:15 12/30/24 08:58 650 MG Amlodipine Besylate 10 mg DAILY PO 12/29/24 10:00 01/05/25 09:40 10 MG Tamsulosin HCl 0.4 mg QPM PO 12/29/24 18:00 01/05/25 17:58 0.4 MG Metoprolol Tartrate 5 mg Q4HPRN PRN IV 12/29/24 15:30 12/30/24 08:57 5 MG Albuterol 2.5 mg Q4HR NEB 12/30/24 14:00 01/06/25 06:25 2.5 MG Ipratropium [place] 0.5 mg Q4HR NEB 12/30/24 14:00 01/06/25 06:25 0.5 MG Piperacillin Sod/ Tazobactam Sod 100 ml @ 25 mls/hr Q8HR IV 12/31/24 22:00 UNV Piperacillin Sod/ Tazobactam Sod 100 ml @ 25 mls/hr Q8HR IV 12/31/24 22:00 01/06/25 06:08 25 MLS/HR Atorvastatin Calcium 20 mg HS PO 01/01/25 22:00 01/05/25 22:07 20 MG Sodium Bicarbonate 650 mg TID PO 01/02/25 22:00 01/06/25 06:09 650 MG Furosemide 40 mg BIDD PO 01/03/25 18:00 01/06/25 06:10 40 MG Diagnostic Test (Pha) 1 strip ACHS 01/05/25 11:30 01/06/25 06:11 1 STRIP Insulin Human Regular ACHS SC 01/05/25 11:30 01/06/25 06:22 3 UNITS Dextrose 50 ml UD PRN IV 01/05/25 09:45 laboratory and microbiology Laboratory Tests 01/05/25 05:49 Test 01/05/25 05:49 Range/Units Serum Glucose 96 74-106 mg/dL Assessment/Plan Subjective Seen and examined at the bedside within telemetry. Maintaining sinus rhythm upon telemetry review. Hemodynamics remain stable. Chart reviewed. Being followed by Nephrology/ID/Pulmonary ASSESSMENT: This is a 44-year old male known outside to our practice who initially presented for altered mental status found to be hypoglycemic with initial serum glucose level of 44 which later improved status post Dextrose administration. It is of note, patient is on Glipizide outpatient which could have attributed to the underlying hypoglycemia. Patient was also found tachycardic and febrile with highest documented temperature of 101.4 in the setting of sepsis from underlying pneumonia with superimposing urinary tract infection as initial WBC count was found elevated at 16.5 with peak lactic acid level of 2.7. Initial creatinine level found elevated at 2.15 with an initial potassium level of 5.5. Initial magnesium level found to be 1.7. TSH level was found normal at 4.37. D-Dimer did reveal elevation at 1.00. Patient does have underlying history of diastolic heart failure which patient underwent Echocardiogram (12/20/2024 [facility]) revealing TDS, EF 65%, stage I diastolic dysfunction, RV size and function is normal. mild LA dilation. Both AV and MV are opening adequately, mild TR with RVSP 26 mmhg. At present, BNP level was found elevated at 319 however chest imaging reveals no evidence for vascular congestion. 12-lead electrocardiogram upon arrival revealed sinus tachycardia at 109 bpm with no acute ischemic changes. Initial HS troponin level was found unremarkable at 16. As the patient presented with tachycardia and previously known history of diastolic heart failure, Cardiology services were involved for cardiac aspects of care. Past medical history includes previous cerebral vascular accident with residual left sided hemiparesis, baseline poor functional status and bed bound, chronic kidney disease, obstructive uropathy status post cystoscopy with urethral dilation and dorsal slit (04/2024) in the setting of phimosis, chronic diastolic heart failure, urinary tract infections, diabetes mellitus II, hyperlipidemia, hypertension, hydronephrosis, and anemia Echocardiogram: (05/05/2024 [facility]) revealed LV EF is 60-65%, stage I diastolic dysfunction, RV size and function is normal. Left Atrium: Left atrium is mildly dilated. No , No MS. Trace MR. Mild TR with RVSP 32 mmHg Echocardiogram: (06/09/2024 [facility] revealed Left ventricle: Left ventricle is normal-sized with normal systolic function. LVEF was around 55%. There was no gross wall motion abnormality. Right ventricle was normal-sized with normal systolic function. Both atria were normal-sized. Aortic valve: Aortic valve is trileaflet. There was no aortic stenosis/insufficiency. There was no mitral regurgitation. There was trivial tricuspid regurgitation. Pulmonary valve was not well visualized. Right ventricular systolic pressure was around 30 mm Hg. There was no pericardial effusion Echocardiogram: (12/20/2024 [facility]) revealed TDS, EF 65%, stage I diastolic dysfunction, RV size and function is normal. mild LA dilation. Both AV and MV are opening adequately, mild TR with RVSP 26 mmhg. BLE Venous Duplex revealed IMPRESSION: 1. There is no sonographic evidence for DVT in the lower extremities. VQ Scan revealed IMPRESSION: 1. Normal perfusion. No evidence of pulmonary embolism. 2. Abnormal ventilation is likely due to multifocal airspace disease seen on recent radiographs. Echocardiogram reported: Left ventricle: Left ventricle was normal-sized with normal systolic function. LVEF was 64%. There was no gross wall motion abnormality. Right ventricle was normal-sized with normal systolic function. Both atria were normal-sized. Aortic valve was trileaflet. There was no aortic insufficiency/stenosis. There was trivial mitral/tricuspid regurgitation. There was no pulmonary valve insufficiency. Right ventricular systolic pressure was assessed at 34 mm Hg. There was no pericardial effusion. Symptomatic hypoglycemia, resolved Sepsis, in the setting of pneumonia/complicated UTI Sinus tachycardia, likely secondary to the above Abnormal D-Dimer, PE/DVT ruled out Chronic diastolic heart failure Baseline poor functional status Old history of previous CVA Residual left hemiparesis Chronic kidney disease Diabetes mellitus II Hyperlipidemia Hypertension Hyperkalemia Anemia, significant CARDIAC SUGGESTIONS FOR MANAGEMENT: Fluid volume management per Nephrology secondary to renal status Proceed with close observation for overt signs of fluid overload Proceed with strict intakes, outputs, and daily weights Proceed with close rate and rhythm surveillance Sustain Magnesium level greater than 2.0 Sustain Potassium level greater than 4.0 Follow up renal function and electrolytes Supplemental oxygen as warranted PRN Lopressor (IV) for rate control On IV antibiotic therapy Management of diabetes mellitus/hypoglycemia as per primary team Management of sepsis (pneumonia/UTI) as per primary team Management of chronic kidney disease as per Nephrology Management of co-morbidities per primary team Proceed with close hemodynamic surveillance Proceed with optimized blood pressure control Transfuse to sustain HGB level above 7.0 Management in telemetry Follow up business transformation consultant recommendations Will proceed to follow from a cardiac perspective Further recommendations per clinical progression All available diagnostic labs, EKG's, and images were personally reviewed Plan of care discussed with and agreed upon by patient / primary RN Prognosis: Guarded Thank you for allowing me to participate in the care of this patient. Further recommendations based on patients clinical course and progression, primary attending, and other consultants. Will continue to follow with primary attending. If you have any questions or concerns, please do not hesitate to contact me. A total of 55 minutes was spent reviewing the patient record, examining the patient, making a diagnostic and therapeutic plan, discussing this plan with medical personnel, following up on diagnostic studies and following the patient for clinical stability excluding any and all procedures. At least 50% of this time was spent in direct, [id number] Plan discussed with: Other (nurse) CC Plasma Assessment Blood Product Administration S: [id number] FAN HAMEED MD Jan 06, 2025 06:37
--- NOTE | 2025-01-06 12:50 | DVHPN2 ---
Progress Note - Dictate Date Seen: Jan 06, 2025 Medical Necessity Reason Pt with a Central, PICC or Fol: Yes The following are medically ne: Smith Catheter Reason for smith catheter: Strict I&O vital signs Vital Sign Date Time Temp Pulse Resp B/P (MAP) Pulse Ox O2 Delivery O2 Flow Rate FiO2 01/06/25 10:37 71 16 100 01/06/25 09:56 133/80 01/06/25 08:47 98.9 98.9 01/06/25 06:25 Room Air* 0 21 Total Intake and Output 01/05/25 01/05/25 01/06/25 15:00 23:00 07:00 Intake Total 270 ml 270 ml 200 ml Output Total 1050 ml 650 ml Balance 270 ml -780 ml -450 ml medications Current Medications Medications Dose Ordered Sig/Wai Route Start Time Stop Time Status Last Admin Dose Admin Acetaminophen/ Hydrocodone Bitart 1 tab Q4HP PRN PO 12/29/24 09:15 Ondansetron HCl 4 mg Q4HP PRN IV 12/29/24 09:15 Docusate Sodium 100 mg BIDPRN PRN PO 12/29/24 09:15 Zinc Sulfate 220 mg DAILY PO 12/29/24 10:00 01/06/25 09:55 220 MG Ascorbic Acid 500 mg BID PO 12/29/24 10:00 01/06/25 09:57 500 MG Multivitamins 1 tab DAILY PO 12/29/24 10:00 01/06/25 09:57 1 TAB Acetaminophen 650 mg Q6HP PRN PO 12/29/24 09:15 12/30/24 08:58 650 MG Amlodipine Besylate 10 mg DAILY PO 12/29/24 10:00 01/06/25 09:56 10 MG Tamsulosin HCl 0.4 mg QPM PO 12/29/24 18:00 01/05/25 17:58 0.4 MG Metoprolol Tartrate 5 mg Q4HPRN PRN IV 12/29/24 15:30 12/30/24 08:57 5 MG Albuterol 2.5 mg Q4HR NEB 12/30/24 14:00 01/06/25 10:27 2.5 MG Ipratropium [place] 0.5 mg Q4HR NEB 12/30/24 14:00 01/06/25 10:27 0.5 MG Piperacillin Sod/ Tazobactam Sod 100 ml @ 25 mls/hr Q8HR IV 12/31/24 22:00 UNV Piperacillin Sod/ Tazobactam Sod 100 ml @ 25 mls/hr Q8HR IV 12/31/24 22:00 01/06/25 06:08 25 MLS/HR Atorvastatin Calcium 20 mg HS PO 01/01/25 22:00 01/05/25 22:07 20 MG Sodium Bicarbonate 650 mg TID PO 01/02/25 22:00 01/06/25 06:09 650 MG Furosemide 40 mg BIDD PO 01/03/25 18:00 01/06/25 06:10 40 MG Diagnostic Test (Pha) 1 strip ACHS 01/05/25 11:30 01/06/25 11:45 1 STRIP Insulin Human Regular ACHS SC 01/05/25 11:30 01/06/25 11:53 3 UNITS Dextrose 50 ml UD PRN IV 01/05/25 09:45 objective General Appearance: alert, no distress HEENT: EOMI, PERRLA, normal external inspect of ears, no icterus, no nasal drainage Neck: no carotid bruit, no jugular venous distention (JVD), no lymphadenopathy Chest: normal thorax Respiratory: clear to auscultation, normal air movement Cardiovascular: regular rate and rhythm, no diastolic murmur, no jugular venous distention (JVD), no rub, no systolic murmur Abdominal: soft, no hepatomegaly, no mass, no splenomegaly, no tenderness Genitourinary: grossly normal external Musculoskeletal: no joint tenderness, no swelling Extremities: normal pulses, no calf tenderness, no clubbing, no cyanosis, no edema Skin: no bruising, no jaundice, no rash Neurological: alert, No focal deficit laboratory and microbiology Laboratory Tests 01/05/25 05:49 Test 01/05/25 05:49 Range/Units Serum Glucose 96 74-106 mg/dL Problem List 1. Sepsis Monitor, IV fluids, IV abx, cardiology consult 2. Hypoglycemia Monitor, hypoglycemia treatment 3. DM II Monitor, wound care consult 4. Pneumonia Monitor, IV abx 5. Bed bound Monitor 6. Acute cystitis w/o hematuria Monitor, IV abx 7. Hx of CVA with residual deficits Monitor 8. CKD3b Monitor, nephrology consult 9. Acute hypoxic respiratory failure Monitor, med-neb treatments, pulmonary consult, IV antibiotics Assessment/Plan Subjective Patient is awake and alert. Objective Patient is almost near his baseline. Patient is doing well. However, he continues to have rhonchi throughout his lungs. Patient is still requiring breathing treatments with Mucinex and chest physiotherapy. I did update patient's mother at bedside. Plan Continue in current treatment. ID recommendations appreciated. Continue breathing treatments and continue Mucinex and chest physiotherapy for pneumonia. Plan discussed with: Patient, Other CC Plasma Assessment Blood Product Administration S: [id number] RAÚL STEEL NP Jan 06, 2025 12:50
--- NOTE | 2025-01-06 16:22 | DVHPN2 ---
Progress Note - Dictate Date Seen: Jan 06, 2025 Medical Necessity Reason Pt with a Central, PICC or Fol: Yes The following are medically ne: Smith Catheter Reason for smith catheter: Strict I&O Subjective Feeling better less chest congestion. vital signs Vital Sign Date Time Temp Pulse Resp B/P (MAP) Pulse Ox O2 Delivery O2 Flow Rate FiO2 01/06/25 14:22 86 16 99 01/06/25 12:54 98.1 140/81 (100) 98.1 01/06/25 10:03 Room Air* 0 21 Total Intake and Output 01/05/25 01/05/25 01/06/25 15:00 23:00 07:00 Intake Total 270 ml 270 ml 200 ml Output Total 1050 ml 650 ml Balance 270 ml -780 ml -450 ml medications Current Medications Medications Dose Ordered Sig/Wai Route Start Time Stop Time Status Last Admin Dose Admin Acetaminophen/ Hydrocodone Bitart 1 tab Q4HP PRN PO 12/29/24 09:15 Ondansetron HCl 4 mg Q4HP PRN IV 12/29/24 09:15 Docusate Sodium 100 mg BIDPRN PRN PO 12/29/24 09:15 Zinc Sulfate 220 mg DAILY PO 12/29/24 10:00 01/06/25 09:55 220 MG Ascorbic Acid 500 mg BID PO 12/29/24 10:00 01/06/25 09:57 500 MG Multivitamins 1 tab DAILY PO 12/29/24 10:00 01/06/25 09:57 1 TAB Acetaminophen 650 mg Q6HP PRN PO 12/29/24 09:15 12/30/24 08:58 650 MG Amlodipine Besylate 10 mg DAILY PO 12/29/24 10:00 01/06/25 09:56 10 MG Tamsulosin HCl 0.4 mg QPM PO 12/29/24 18:00 01/05/25 17:58 0.4 MG Metoprolol Tartrate 5 mg Q4HPRN PRN IV 12/29/24 15:30 12/30/24 08:57 5 MG Albuterol 2.5 mg Q4HR NEB 12/30/24 14:00 01/06/25 14:13 2.5 MG Ipratropium [place] 0.5 mg Q4HR NEB 12/30/24 14:00 01/06/25 14:13 0.5 MG Piperacillin Sod/ Tazobactam Sod 100 ml @ 25 mls/hr Q8HR IV 12/31/24 22:00 UNV Piperacillin Sod/ Tazobactam Sod 100 ml @ 25 mls/hr Q8HR IV 12/31/24 22:00 01/06/25 13:29 25 MLS/HR Atorvastatin Calcium 20 mg HS PO 01/01/25 22:00 01/05/25 22:07 20 MG Sodium Bicarbonate 650 mg TID PO 01/02/25 22:00 01/06/25 13:28 650 MG Furosemide 40 mg BIDD PO 01/03/25 18:00 01/06/25 06:10 40 MG Diagnostic Test (Pha) 1 strip ACHS 01/05/25 11:30 01/06/25 11:45 1 STRIP Insulin Human Regular ACHS SC 01/05/25 11:30 01/06/25 11:53 3 UNITS Dextrose 50 ml UD PRN IV 01/05/25 09:45 objective Gen: NAD HEENT: NC,AT Lungs: Bilateral rales Cardiac: Tachycardia, no murmur Abd: soft, no tenderness Ext: no edema + Smith laboratory and microbiology Laboratory Tests 01/05/25 05:49 Test 01/05/25 05:49 Range/Units Serum Glucose 96 74-106 mg/dL Assessment/Plan Assessment: LISANDRO: cardiorenal syndrome + Sepsis CKD III. (Baseline Cr: 1.6 mg/dl on May/2024) Acute hypoxic respiratory failure: Improved Sepsis secondary to pneumonia Acute on Chronic diastolic CHF Acute anemia Hypoglycemia , resolved lactic acidosis Hyperkalemia, resolved DM HTN HLD h/o CVA with residual left sided weakness bed bound Plan: Continue maintenance Lasix p.o. Smith is present Continue Sodium bicarb 650 mg PO TID Bronchodilator therapy p.r.n. monitor H&H and transfuse if Hb < 7 g/dl Continue IV antibiotics Pulmonary consult daily BMP, and Mg continue Amlodipine 10 mg PO daily strict I&Os No indication for renal replacement therapy Plan discussed with: Patient CC Plasma Assessment Blood Product Administration S: [id number] GISELE ABREU MD Jan 06, 2025 16:22
--- NOTE | 2025-01-06 18:36 | DVHPN2 ---
Progress Note - Dictate Date Seen: Jan 06, 2025 Medical Necessity Reason Pt with a Central, PICC or Fol: Yes The following are medically ne: Smith Catheter Reason for smith catheter: Strict I&O Subjective Patient seen and examined at bedside. Breathing on room air. Overnight events reviewed. vital signs Vital Sign Date Time Temp Pulse Resp B/P (MAP) Pulse Ox O2 Delivery O2 Flow Rate FiO2 01/06/25 17:08 98.1 92 21 156/94 (114) 94 98.1 01/06/25 10:03 Room Air* 0 21 Total Intake and Output 01/05/25 01/05/25 01/06/25 15:00 23:00 07:00 Intake Total 270 ml 270 ml 200 ml Output Total 1050 ml 650 ml Balance 270 ml -780 ml -450 ml medications Current Medications Medications Dose Ordered Sig/Wai Route Start Time Stop Time Status Last Admin Dose Admin Acetaminophen/ Hydrocodone Bitart 1 tab Q4HP PRN PO 12/29/24 09:15 Ondansetron HCl 4 mg Q4HP PRN IV 12/29/24 09:15 Docusate Sodium 100 mg BIDPRN PRN PO 12/29/24 09:15 Zinc Sulfate 220 mg DAILY PO 12/29/24 10:00 01/06/25 09:55 220 MG Ascorbic Acid 500 mg BID PO 12/29/24 10:00 01/06/25 09:57 500 MG Multivitamins 1 tab DAILY PO 12/29/24 10:00 01/06/25 09:57 1 TAB Acetaminophen 650 mg Q6HP PRN PO 12/29/24 09:15 12/30/24 08:58 650 MG Amlodipine Besylate 10 mg DAILY PO 12/29/24 10:00 01/06/25 09:56 10 MG Tamsulosin HCl 0.4 mg QPM PO 12/29/24 18:00 01/05/25 17:58 0.4 MG Metoprolol Tartrate 5 mg Q4HPRN PRN IV 12/29/24 15:30 12/30/24 08:57 5 MG Albuterol 2.5 mg Q4HR NEB 12/30/24 14:00 01/06/25 14:13 2.5 MG Ipratropium [place] 0.5 mg Q4HR NEB 12/30/24 14:00 01/06/25 14:13 0.5 MG Piperacillin Sod/ Tazobactam Sod 100 ml @ 25 mls/hr Q8HR IV 12/31/24 22:00 UNV Piperacillin Sod/ Tazobactam Sod 100 ml @ 25 mls/hr Q8HR IV 12/31/24 22:00 01/06/25 13:29 25 MLS/HR Atorvastatin Calcium 20 mg HS PO 01/01/25 22:00 01/05/25 22:07 20 MG Sodium Bicarbonate 650 mg TID PO 01/02/25 22:00 01/06/25 13:28 650 MG Furosemide 40 mg BIDD PO 01/03/25 18:00 01/06/25 06:10 40 MG Diagnostic Test (Pha) 1 strip ACHS 01/05/25 11:30 01/06/25 11:45 1 STRIP Insulin Human Regular ACHS SC 01/05/25 11:30 01/06/25 11:53 3 UNITS Dextrose 50 ml UD PRN IV 01/05/25 09:45 Methylprednisolone Sodium Succinate 40 mg Q8HR IV 01/06/25 22:00 Budesonide 0.5 mg BID NEB 01/06/25 22:00 objective Gen.: Patient lying in bed in no apparent distress. On room air. Head: Normocephalic, atraumatic. Eyes: EOMI/PERRLA. Ears: Normal hearing. Normal anatomy. Neck/trachea: Trachea midline, supple. Nose: Normal external anatomy. Mouth: Moist mucous membranes. Chest: Decreased air entry bilaterally. Wheezing noted. No rhonchi. Cardiovascular: Positive S1, positive S2. Regular rate and rhythm. Abdomen: Positive bowel sounds in all 4 quadrants. Soft, non-tender, non- distended. : Deferred. Rectal: Deferred. Skin: Warm, dry. Intact. Extremities: 2+ radial pulses bilaterally. No lower extremity edema. Neuro: Awake, alert, oriented x3. No gross motor or sensory deficits. Cranial nerves II through XII intact. Gait not assessed. laboratory and microbiology Laboratory Tests 01/05/25 05:49 Test 01/05/25 05:49 Range/Units Serum Glucose 96 74-106 mg/dL Assessment/Plan Impression: Acute hypoxic respiratory failure Sepsis DM type II w/ hypoglycemia Urinary tract infection CVA with left-sided deficits Pneumonia, likely gram negative Cachexia, BMI 13.9 Events: On room air Supplemental oxygen PRN Wheezing noted - start steroids Pulmicort Continue with head of bed elevation and aspiration precautions Continue bronchodilators Chest physiotherapy. Complete antibiotic course. ID recommendations appreciated. Vitamin supplementation Cardiology recommendations appreciated Monitor hemoglobin Monitor WBC WBC wnl. Cardiology recommendations appreciated. Maintain euvolemia Monitor renal function. Monitor electrolytes. Supplement as necessary. Monitor ins and outs. Nephrology recommendations appreciated NTS PRN. Dispo per hospitalist Labs and imaging reviewed. Rest of plan as noted below. Plan: Supplemental oxygen PRN Keep O2 sats above 92%. Head of bed elevation Aspiration precautions. NTS Continue bronchodilators. Steroids Complete antibiotic course Accu-Cheks for glycemic monitoring DVT prophylaxis. Prognosis: Guarded given patient's multiple co-morbidities. Rest of plan per hospitalist and other consultants. Thank you, ANITHA Vergara, for allowing me to participate in this patient's care. Further recommendations will depend on the patient's clinical course. Please do not hesitate to contact me if you have any questions or concerns. This medical document was created using an electronic medical record system with [employer] dictation system. Although these documentations are being carefully reviewed, there may still be some phonetic and typographical changes. The errors are purely typographical, due to imperfection on the software program, and do not reflect any compromise in the patient's medical care. Plan discussed with: Patient, Other (CARMEN Chang) CC Plasma Assessment Blood Product Administration S: [id number] EDGARDO CULLEN MD Jan 06, 2025 18:36
[2025-01-06] MEDS: methylPREDNISolone SOD SUCC 40 MG/ML VL IV SCH (21:59)
[2025-01-06] MEDS: BUDESONIDE (INHALATION) 0.5 MG/2 ML NEB NEB SCH (22:04)
--- NOTE | 2025-01-06 22:51 | DVHPN2 ---
Consult Progress Note Date Seen: Jan 05, 2025 Subjective Patient reports: Other (no cough , lungs sound clear ) Objective vital signs Vital Sign Date Time Temp Pulse Resp B/P (MAP) Pulse Ox O2 Delivery O2 Flow Rate FiO2 01/06/25 22:12 93 12 100 01/06/25 22:04 Room Air 0.0 01/06/25 22:04 21 01/06/25 21:00 98.0 129/77 (94) 98.0 Total Intake and Output 01/05/25 01/05/25 01/06/25 15:00 23:00 07:00 Intake Total 270 ml 270 ml 200 ml Output Total 1050 ml 650 ml Balance 270 ml -780 ml -450 ml medications Current Medications Medications Dose Ordered Sig/Wai Route Start Time Stop Time Status Last Admin Dose Admin Acetaminophen/ Hydrocodone Bitart 1 tab Q4HP PRN PO 12/29/24 09:15 Ondansetron HCl 4 mg Q4HP PRN IV 12/29/24 09:15 Docusate Sodium 100 mg BIDPRN PRN PO 12/29/24 09:15 Zinc Sulfate 220 mg DAILY PO 12/29/24 10:00 01/06/25 09:55 220 MG Ascorbic Acid 500 mg BID PO 12/29/24 10:00 01/06/25 22:00 500 MG Multivitamins 1 tab DAILY PO 12/29/24 10:00 01/06/25 09:57 1 TAB Acetaminophen 650 mg Q6HP PRN PO 12/29/24 09:15 12/30/24 08:58 650 MG Amlodipine Besylate 10 mg DAILY PO 12/29/24 10:00 01/06/25 09:56 10 MG Tamsulosin HCl 0.4 mg QPM PO 12/29/24 18:00 01/06/25 18:42 0.4 MG Metoprolol Tartrate 5 mg Q4HPRN PRN IV 12/29/24 15:30 12/30/24 08:57 5 MG Albuterol 2.5 mg Q4HR NEB 12/30/24 14:00 01/06/25 22:03 2.5 MG Ipratropium [place] 0.5 mg Q4HR NEB 12/30/24 14:00 01/06/25 22:03 0.5 MG Piperacillin Sod/ Tazobactam Sod 100 ml @ 25 mls/hr Q8HR IV 12/31/24 22:00 UNV Piperacillin Sod/ Tazobactam Sod 100 ml @ 25 mls/hr Q8HR IV 12/31/24 22:00 01/06/25 21:59 25 MLS/HR Atorvastatin Calcium 20 mg HS PO 01/01/25 22:00 01/06/25 22:00 20 MG Sodium Bicarbonate 650 mg TID PO 01/02/25 22:00 01/06/25 22:00 650 MG Furosemide 40 mg BIDD PO 01/03/25 18:00 01/06/25 18:44 40 MG Diagnostic Test (Pha) 1 strip ACHS 01/05/25 11:30 01/06/25 22:01 1 STRIP Insulin Human Regular ACHS SC 01/05/25 11:30 01/06/25 22:13 6 UNITS Dextrose 50 ml UD PRN IV 01/05/25 09:45 Methylprednisolone Sodium Succinate 40 mg Q8HR IV 01/06/25 22:00 01/06/25 21:59 40 MG Budesonide 0.5 mg BID NEB 01/06/25 22:00 01/06/25 22:04 0.5 MG Physical Exam General Appearance: Cooperative. Well developed. Well nourished. NAD Head Exam: Normal inspection Neck Exam: Normal inspection. Non-tender. Normal alignment Pulmonary/Respiratory: Chest non-tender. Bilateral lung base crackles. Cardiovascular/Chest: Regular rate and rhythm. No murmurs. No JVD. Peripheral Pulses: 2+ Radial (R). 2+ Radial (L). 2+ Pedal (R). 2+ Pedal (L) Abdominal Exam: Normal bowel sounds. Soft. Nontender. No hepatospenomegaly. No masses Ankle Exam: Negative ankle edema Lower extremities: Negative lower extremity edema Neuro/Mental Status: A&O x4. Coherent Thoughts/Psych: Normal thought pattern. Appropriate mood and affect. Good judgement and insight Appearance: In no acute distress Skin Exam: Normal inspection. Normal color. Warm. Dry laboratory and microbiology Laboratory Tests 01/05/25 05:49 Test 01/05/25 05:49 Range/Units Serum Glucose 96 74-106 mg/dL Problem List/Assessment/Plan Problems(with codes): (1) Acute prerenal azotemia (2) Urethral stricture (3) Symptomatic anemia (4) UTI (urinary tract infection) (5) Weakness (6) Hyperglycemia (7) Metabolic encephalopathy (8) Pneumonitis (9) Hypoglycemia (10) Hyperkalemia (11) Sepsis Problem List/Assessment/Plan Problem List/Assessment/Plan Sepsis in setting of pneumonia likely g negative Acute complicated UTI Hypoglycemia Ruled out PE Chronic diastolic heart failure History of CVA with residual left-sided weakness CKD stage 3 Diabetes mellitus type 2 Hypertension Hyperlipidemia Bed-bound Assessment: patient is a 44 year old male with a past medical history of cerebral palsy and related mental delay with bedridden diabetes and has a history of stroke with residual deficit CKD and stage 3 obstructive uropathy , diastolic CHF , hypertension , hyperlipidemia, hydronephrosis, anemia and was brought into the hospital with altered mental status and was recently admitted to [facility] a week ago with hyperglycemia and concerned as well of LISANDRO . Patient was treated for a UTI at that hospitalization and now presents with SOB and hypoglycemia with blood sugar in the 40s and patient is requiring 3-5 liters of nasal canula . Chest xray shows left lung opacities with concern for pneumonia and temp has ranged from 100.3- 98.3 and is tachycardic . overall tachycardia , fever and BP has been improving during this hospital course. Surgical history include ureteral dilation , review of systems . patient indorses SOB and cough , no sputum production , no diarrhea and no chest pains . Temperature of 97.1 currently with pulse 88 and BP 107/62 and setting 100% on 2 liters nasal canula. patient is altert and oriented and able to answer short questions , crackles in bases bilaterally . whitecount 13.7 that has come down from 20.7 on admission and platelet has come down to 148 from 210. Urine cultures shows deyanira , patient came in with a smith catheter , blood cultures is no growth to date , MRSA nares is negative . chest xray shows left lung hezy opacities which may represent pneumonia and doppler ultrasound showed no signs of DVT in lower extremities . plan would be to cover empirically for hospital aquired pneumonia due to recent [facility] visit , would forgo vancomycin due to negative MRSA nares , would continue Zosyn and start azithromycin for hospital aquired pneumonia coverage given the multifocal nature of the opacities , no need for fluconazole instead would recommend exchange of smith catheter if patient still requires smith . check procal serotinum level , check sputum culture that may need inducing . follow up on influenza, covid and RSV swab testing . 01/01: patient was unable to produce any sputum sample , unclear if patient is just unable to understand the request . still SOB however is setting 100% on 3 liters nasal canula . crackles in lungs bilaterally , mild edema in the legs. whitecount continues to come down . plan will be to continue Zosyn and azithromycin , acquire and induced sputum culture 01/02: sputum culture, growing normal respiratory syeda 01/03: hemoglobin 8.2 , whitecount 11.2 , having good urine output through catheter , responding to antibiotic therapy 01/05: respiratory cultures show normal respiratory syeda Plan: - continue ceftriaxone while inpatient and no need for antibiotics upon discharge -MRSA negative -blood culture(12/29/24): Negative, no growth after 48 hours of incubation -urine culture from 12/29/2024: Yeast, not Diana albicans, likely contamination. No need for antifungal. -pending respiratory culture, influenza and COVID swab. -reviewed chest x-ray which showed left-sided lung obesity. -procalcitonin -on oxygen via nasal cannula, currently at 3-5 L. -continue IV fluid, continue to monitor urine output. -rest of the management as per hospitalist. Plan discussed with: Other CC Plasma Assessment Blood Product Administration S: [id number] MOISE FRANKEL MD Jan 06, 2025 22:51
--- NOTE | 2025-01-06 22:53 | DVHPN2 ---
Consult Progress Note Date Seen: Jan 06, 2025 Subjective Patient reports: Other (eating and tolerating meal without getting short of breath ) Objective vital signs Vital Sign Date Time Temp Pulse Resp B/P (MAP) Pulse Ox O2 Delivery O2 Flow Rate FiO2 01/06/25 22:12 93 12 100 01/06/25 22:04 Room Air 0.0 01/06/25 22:04 21 01/06/25 21:00 98.0 129/77 (94) 98.0 Total Intake and Output 01/05/25 01/05/25 01/06/25 15:00 23:00 07:00 Intake Total 270 ml 270 ml 200 ml Output Total 1050 ml 650 ml Balance 270 ml -780 ml -450 ml medications Current Medications Medications Dose Ordered Sig/Wai Route Start Time Stop Time Status Last Admin Dose Admin Acetaminophen/ Hydrocodone Bitart 1 tab Q4HP PRN PO 12/29/24 09:15 Ondansetron HCl 4 mg Q4HP PRN IV 12/29/24 09:15 Docusate Sodium 100 mg BIDPRN PRN PO 12/29/24 09:15 Zinc Sulfate 220 mg DAILY PO 12/29/24 10:00 01/06/25 09:55 220 MG Ascorbic Acid 500 mg BID PO 12/29/24 10:00 01/06/25 22:00 500 MG Multivitamins 1 tab DAILY PO 12/29/24 10:00 01/06/25 09:57 1 TAB Acetaminophen 650 mg Q6HP PRN PO 12/29/24 09:15 12/30/24 08:58 650 MG Amlodipine Besylate 10 mg DAILY PO 12/29/24 10:00 01/06/25 09:56 10 MG Tamsulosin HCl 0.4 mg QPM PO 12/29/24 18:00 01/06/25 18:42 0.4 MG Metoprolol Tartrate 5 mg Q4HPRN PRN IV 12/29/24 15:30 12/30/24 08:57 5 MG Albuterol 2.5 mg Q4HR NEB 12/30/24 14:00 01/06/25 22:03 2.5 MG Ipratropium [place] 0.5 mg Q4HR NEB 12/30/24 14:00 01/06/25 22:03 0.5 MG Piperacillin Sod/ Tazobactam Sod 100 ml @ 25 mls/hr Q8HR IV 12/31/24 22:00 UNV Piperacillin Sod/ Tazobactam Sod 100 ml @ 25 mls/hr Q8HR IV 12/31/24 22:00 01/06/25 21:59 25 MLS/HR Atorvastatin Calcium 20 mg HS PO 01/01/25 22:00 01/06/25 22:00 20 MG Sodium Bicarbonate 650 mg TID PO 01/02/25 22:00 01/06/25 22:00 650 MG Furosemide 40 mg BIDD PO 01/03/25 18:00 01/06/25 18:44 40 MG Diagnostic Test (Pha) 1 strip ACHS 01/05/25 11:30 01/06/25 22:01 1 STRIP Insulin Human Regular ACHS SC 01/05/25 11:30 01/06/25 22:13 6 UNITS Dextrose 50 ml UD PRN IV 01/05/25 09:45 Methylprednisolone Sodium Succinate 40 mg Q8HR IV 01/06/25 22:00 01/06/25 21:59 40 MG Budesonide 0.5 mg BID NEB 01/06/25 22:00 01/06/25 22:04 0.5 MG Physical Exam General Appearance: Cooperative. Well developed. Well nourished. NAD Head Exam: Normal inspection Neck Exam: Normal inspection. Non-tender. Normal alignment Pulmonary/Respiratory: Chest non-tender. Bilateral lung base crackles. Cardiovascular/Chest: Regular rate and rhythm. No murmurs. No JVD. Peripheral Pulses: 2+ Radial (R). 2+ Radial (L). 2+ Pedal (R). 2+ Pedal (L) Abdominal Exam: Normal bowel sounds. Soft. Nontender. No hepatospenomegaly. No masses Ankle Exam: Negative ankle edema Lower extremities: Negative lower extremity edema Neuro/Mental Status: A&O x4. Coherent Thoughts/Psych: Normal thought pattern. Appropriate mood and affect. Good judgement and insight Appearance: In no acute distress Skin Exam: Normal inspection. Normal color. Warm. Dry laboratory and microbiology Laboratory Tests 01/05/25 05:49 Test 01/05/25 05:49 Range/Units Serum Glucose 96 74-106 mg/dL Problem List/Assessment/Plan Problems(with codes): (1) Pneumonitis (2) Metabolic encephalopathy (3) Hyperglycemia (4) Weakness (5) UTI (urinary tract infection) (6) Symptomatic anemia (7) Urethral stricture (8) Acute prerenal azotemia Problem List/Assessment/Plan Problem List/Assessment/Plan Sepsis in setting of pneumonia likely g negative Acute complicated UTI Hypoglycemia Ruled out PE Chronic diastolic heart failure History of CVA with residual left-sided weakness CKD stage 3 Diabetes mellitus type 2 Hypertension Hyperlipidemia Bed-bound Assessment: patient is a 44 year old male with a past medical history of cerebral palsy and related mental delay with bedridden diabetes and has a history of stroke with residual deficit CKD and stage 3 obstructive uropathy , diastolic CHF , hypertension , hyperlipidemia, hydronephrosis, anemia and was brought into the hospital with altered mental status and was recently admitted to [facility] a week ago with hyperglycemia and concerned as well of LISANDRO . Patient was treated for a UTI at that hospitalization and now presents with SOB and hypoglycemia with blood sugar in the 40s and patient is requiring 3-5 liters of nasal canula . Chest xray shows left lung opacities with concern for pneumonia and temp has ranged from 100.3- 98.3 and is tachycardic . overall tachycardia , fever and BP has been improving during this hospital course. Surgical history include ureteral dilation , review of systems . patient indorses SOB and cough , no sputum production , no diarrhea and no chest pains . Temperature of 97.1 currently with pulse 88 and BP 107/62 and setting 100% on 2 liters nasal canula. patient is altert and oriented and able to answer short questions , crackles in bases bilaterally . whitecount 13.7 that has come down from 20.7 on admission and platelet has come down to 148 from 210. Urine cultures shows deyanira , patient came in with a smith catheter , blood cultures is no growth to date , MRSA nares is negative . chest xray shows left lung hezy opacities which may represent pneumonia and doppler ultrasound showed no signs of DVT in lower extremities . plan would be to cover empirically for hospital aquired pneumonia due to recent [facility] visit , would forgo vancomycin due to negative MRSA nares , would continue Zosyn and start azithromycin for hospital aquired pneumonia coverage given the multifocal nature of the opacities , no need for fluconazole instead would recommend exchange of smith catheter if patient still requires smith . check procal serotinum level , check sputum culture that may need inducing . follow up on influenza, covid and RSV swab testing . 01/01: patient was unable to produce any sputum sample , unclear if patient is just unable to understand the request . still SOB however is setting 100% on 3 liters nasal canula . crackles in lungs bilaterally , mild edema in the legs. whitecount continues to come down . plan will be to continue Zosyn and azithromycin , acquire and induced sputum culture 01/02: sputum culture, growing normal respiratory syeda 01/03: hemoglobin 8.2 , whitecount 11.2 , having good urine output through catheter , responding to antibiotic therapy 01/05: respiratory cultures show normal respiratory syeda 01/06: appears to be recovering well from his pneumonia Plan: - continue ceftriaxone while inpatient and no need for antibiotics upon discharge -MRSA negative -blood culture(12/29/24): Negative, no growth after 48 hours of incubation -urine culture from 12/29/2024: Yeast, not Diana albicans, likely contamination. No need for antifungal. -pending respiratory culture, influenza and COVID swab. -reviewed chest x-ray which showed left-sided lung obesity. -procalcitonin -on oxygen via nasal cannula, currently at 3-5 L. -continue IV fluid, continue to monitor urine output. -rest of the management as per hospitalist. Plan discussed with: Other CC Plasma Assessment Blood Product Administration S: [id number] MOISE FRANKEL MD Jan 06, 2025 22:53
[2025-01-07] VITALS (21 sets, daily range): BP systolic 125–141; BP diastolic 80–96; PULSE 77–101; RESP 12–20; TEMP 96.5–98.2; O2SAT 94–100
[2025-01-07 07:02] LABS: Basophils # (auto) 0 10 ^3/uL (0-0.2); Basophils % (auto) 0.2 % (0.0-2.0); Eosinophils # (auto) 0 10 ^3/uL (0-0.8); Hematocrit 26.7 % (41.0-53.0); Hemoglobin 8.8 g/dL (13.5-17.5); Lymphocytes # (auto) 0.4 10 ^3/uL (0.4-5.4); Lymphocytes % (auto) 5.4 % (10.0-50.0); Mean Corpuscular Hemoglobin 29.2 pg (28.0-32.0); Mean Corpuscular Hgb Conc. 33.1 g/dL (32.0-36.0); Mean Corpuscular Volume 88.4 fL (80.0-100.0); Monocytes # (auto) 0.1 10 ^3/uL (0-1.3); Monocytes % (auto) 0.7 % (0.0-12.0); Neutrophils # (auto) 6.8 10 ^3/uL (1.6-8.6); Neutrophils % (auto) 93.7 % (37.0-80.0); Nucleated Red Blood Cells % 0.1 %; Platelet Count (auto) 283 10^3/uL (140-450); Red Blood Cells 3.03 10^6/uL (4.5-5.90); Red Cell Distribution Width 17.8 % (11.8-14.3); White Blood Cell 7.2 10^3/uL (4.4-10.8)
[2025-01-07 07:22] LABS: Alanine Aminotransferase 31 U/L (7-40); Albumin 3.2 g/dL (3.2-4.8); Anion Gap 11 (5-15); Aspartate Aminotransferase 21 U/L (13-40); BUN/Creatinine Ratio 23.6 (10.0-20.0); Magnesium 1.7 mg/dL (1.6-2.6); Potassium 4.1 mmol/L (3.5-5.1); Sodium 139 mmol/L (136-145)
[2025-01-07 07:23] LABS: Phosphorus 4.5 mg/dL (2.4-5.1)
[2025-01-07 07:24] LABS: Total Protein 6.2 g/dL (5.7-8.2)
[2025-01-07 07:25] LABS: Alkaline Phosphatase 454 U/L (46-116); Blood Urea Nitrogen 57 mg/dL (9-23); Carbon Dioxide 19 mmol/L (20-31); Chloride 109 mmol/L (98-107); Glucose 307 mg/dL (74-106)
[2025-01-07 07:26] LABS: Bilirubin, Total 0.2 mg/dL (0.2-1.0); Calcium 8.5 mg/dL (8.7-10.4)
--- NOTE | 2025-01-07 08:04 | DVHPN2 ---
Progress Note - Dictate Date Seen: Jan 07, 2025 Medical Necessity Reason Pt with a Central, PICC or Fol: Yes The following are medically ne: Smith Catheter Reason for smith catheter: Strict I&O vital signs Vital Sign Date Time Temp Pulse Resp B/P (MAP) Pulse Ox O2 Delivery O2 Flow Rate FiO2 01/07/25 07:19 95 18 100 01/07/25 07:09 Room Air* 0 21 01/07/25 05:50 133/91 01/07/25 05:00 98.2 98.2 Total Intake and Output 01/06/25 01/06/25 01/07/25 15:00 23:00 07:00 Intake Total 100 ml 560 ml 800 ml Output Total 650 ml 1000 ml Balance 100 ml -90 ml -200 ml medications Current Medications Medications Dose Ordered Sig/Wai Route Start Time Stop Time Status Last Admin Dose Admin Acetaminophen/ Hydrocodone Bitart 1 tab Q4HP PRN PO 12/29/24 09:15 Ondansetron HCl 4 mg Q4HP PRN IV 12/29/24 09:15 Docusate Sodium 100 mg BIDPRN PRN PO 12/29/24 09:15 Zinc Sulfate 220 mg DAILY PO 12/29/24 10:00 01/06/25 09:55 220 MG Ascorbic Acid 500 mg BID PO 12/29/24 10:00 01/06/25 22:00 500 MG Multivitamins 1 tab DAILY PO 12/29/24 10:00 01/06/25 09:57 1 TAB Acetaminophen 650 mg Q6HP PRN PO 12/29/24 09:15 12/30/24 08:58 650 MG Amlodipine Besylate 10 mg DAILY PO 12/29/24 10:00 01/06/25 09:56 10 MG Tamsulosin HCl 0.4 mg QPM PO 12/29/24 18:00 01/06/25 18:42 0.4 MG Metoprolol Tartrate 5 mg Q4HPRN PRN IV 12/29/24 15:30 12/30/24 08:57 5 MG Albuterol 2.5 mg Q4HR NEB 12/30/24 14:00 01/07/25 07:09 2.5 MG Ipratropium [place] 0.5 mg Q4HR NEB 12/30/24 14:00 01/07/25 07:09 0.5 MG Piperacillin Sod/ Tazobactam Sod 100 ml @ 25 mls/hr Q8HR IV 12/31/24 22:00 UNV Piperacillin Sod/ Tazobactam Sod 100 ml @ 25 mls/hr Q8HR IV 12/31/24 22:00 01/07/25 05:46 25 MLS/HR Atorvastatin Calcium 20 mg HS PO 01/01/25 22:00 01/06/25 22:00 20 MG Sodium Bicarbonate 650 mg TID PO 01/02/25 22:00 01/06/25 22:00 650 MG Furosemide 40 mg BIDD PO 01/03/25 18:00 01/07/25 05:50 40 MG Diagnostic Test (Pha) 1 strip ACHS 01/05/25 11:30 01/07/25 05:51 1 STRIP Insulin Human Regular ACHS SC 01/05/25 11:30 01/07/25 05:59 6 UNITS Dextrose 50 ml UD PRN IV 01/05/25 09:45 Methylprednisolone Sodium Succinate 40 mg Q8HR IV 01/06/25 22:00 01/07/25 05:46 40 MG Budesonide 0.5 mg BID NEB 01/06/25 22:00 01/07/25 07:08 0.5 MG laboratory and microbiology Laboratory Tests 01/07/25 05:53 Test 01/07/25 05:53 Range/Units Serum Glucose 307 #H 74-106 mg/dL Assessment/Plan Subjective Seen and examined at the bedside within telemetry. Maintaining sinus rhythm upon telemetry review. Hemodynamics remain stable. Chart reviewed. Being followed by Nephrology/ID/Pulmonary ASSESSMENT: This is a 44-year old male known outside to our practice who initially presented for altered mental status found to be hypoglycemic with initial serum glucose level of 44 which later improved status post Dextrose administration. It is of note, patient is on Glipizide outpatient which could have attributed to the underlying hypoglycemia. Patient was also found tachycardic and febrile with highest documented temperature of 101.4 in the setting of sepsis from underlying pneumonia with superimposing urinary tract infection as initial WBC count was found elevated at 16.5 with peak lactic acid level of 2.7. Initial creatinine level found elevated at 2.15 with an initial potassium level of 5.5. Initial magnesium level found to be 1.7. TSH level was found normal at 4.37. D-Dimer did reveal elevation at 1.00. Patient does have underlying history of diastolic heart failure which patient underwent Echocardiogram (12/20/2024 [facility]) revealing TDS, EF 65%, stage I diastolic dysfunction, RV size and function is normal. mild LA dilation. Both AV and MV are opening adequately, mild TR with RVSP 26 mmhg. At present, BNP level was found elevated at 319 however chest imaging reveals no evidence for vascular congestion. 12-lead electrocardiogram upon arrival revealed sinus tachycardia at 109 bpm with no acute ischemic changes. Initial HS troponin level was found unremarkable at 16. As the patient presented with tachycardia and previously known history of diastolic heart failure, Cardiology services were involved for cardiac aspects of care. Past medical history includes previous cerebral vascular accident with residual left sided hemiparesis, baseline poor functional status and bed bound, chronic kidney disease, obstructive uropathy status post cystoscopy with urethral dilation and dorsal slit (04/2024) in the setting of phimosis, chronic diastolic heart failure, urinary tract infections, diabetes mellitus II, hyperlipidemia, hypertension, hydronephrosis, and anemia Echocardiogram: (05/05/2024 [facility]) revealed LV EF is 60-65%, stage I diastolic dysfunction, RV size and function is normal. Left Atrium: Left atrium is mildly dilated. No , No MS. Trace MR. Mild TR with RVSP 32 mmHg Echocardiogram: (06/09/2024 [facility]) revealed Left ventricle: Left ventricle is normal-sized with normal systolic function. LVEF was around 55%. There was no gross wall motion abnormality. Right ventricle was normal-sized with normal systolic function. Both atria were normal-sized. Aortic valve: Aortic valve is trileaflet. There was no aortic stenosis/insufficiency. There was no mitral regurgitation. There was trivial tricuspid regurgitation. Pulmonary valve was not well visualized. Right ventricular systolic pressure was around 30 mm Hg. There was no pericardial effusion Echocardiogram: (12/20/2024 [facility]) revealed TDS, EF 65%, stage I diastolic dysfunction, RV size and function is normal. mild LA dilation. Both AV and MV are opening adequately, mild TR with RVSP 26 mmhg. BLE Venous Duplex revealed IMPRESSION: 1. There is no sonographic evidence for DVT in the lower extremities. VQ Scan revealed IMPRESSION: 1. Normal perfusion. No evidence of pulmonary embolism. 2. Abnormal ventilation is likely due to multifocal airspace disease seen on recent radiographs. Echocardiogram reported: Left ventricle: Left ventricle was normal-sized with normal systolic function. LVEF was 64%. There was no gross wall motion abnormality. Right ventricle was normal-sized with normal systolic function. Both atria were normal-sized. Aortic valve was trileaflet. There was no aortic insufficiency/stenosis. There was trivial mitral/tricuspid regurgitation. There was no pulmonary valve insufficiency. Right ventricular systolic pressure was assessed at 34 mm Hg. There was no pericardial effusion. Symptomatic hypoglycemia, resolved Sepsis, in the setting of pneumonia/complicated UTI Sinus tachycardia, likely secondary to the above Abnormal D-Dimer, PE/DVT ruled out Chronic diastolic heart failure Baseline poor functional status Old history of previous CVA Residual left hemiparesis Chronic kidney disease Diabetes mellitus II Hyperlipidemia Hypertension Hyperkalemia Anemia, significant CARDIAC SUGGESTIONS FOR MANAGEMENT: Fluid volume management per Nephrology secondary to renal status Proceed with close observation for overt signs of fluid overload Proceed with strict intakes, outputs, and daily weights Proceed with close rate and rhythm surveillance Sustain Magnesium level greater than 2.0 Sustain Potassium level greater than 4.0 Follow up renal function and electrolytes Supplemental oxygen as warranted PRN Lopressor (IV) for rate control On IV antibiotic therapy Management of diabetes mellitus/hypoglycemia as per primary team Management of sepsis (pneumonia/UTI) as per primary team Management of chronic kidney disease as per Nephrology Management of co-morbidities per primary team Proceed with close hemodynamic surveillance Proceed with optimized blood pressure control Transfuse to sustain HGB level above 7.0 Management in telemetry Follow up disaster recovery consultant recommendations Will proceed to follow from a cardiac perspective Further recommendations per clinical progression All available diagnostic labs, EKG's, and images were personally reviewed Plan of care discussed with and agreed upon by patient / primary RN Prognosis: Guarded Thank you for allowing me to participate in the care of this patient. Further recommendations based on patients clinical course and progression, primary attending, and other consultants. Will continue to follow with primary attending. If you have any questions or concerns, please do not hesitate to contact me. A total of 55 minutes was spent reviewing the patient record, examining the patient, making a diagnostic and therapeutic plan, discussing this plan with medical personnel, following up on diagnostic studies and following the patient for clinical stability excluding any and all procedures. At least 50% of this time was spent in direct, [id number] Plan discussed with: Other (nurse) CC Plasma Assessment Blood Product Administration S: [id number] FAN HAMEED MD Jan 07, 2025 08:04
--- NOTE | 2025-01-07 12:24 | DVHPN2 ---
Progress Note - Dictate Date Seen: Jan 07, 2025 Medical Necessity Reason Pt with a Central, PICC or Fol: Yes The following are medically ne: Smith Catheter Reason for smith catheter: Strict I&O vital signs Vital Sign Date Time Temp Pulse Resp B/P (MAP) Pulse Ox O2 Delivery O2 Flow Rate FiO2 01/07/25 10:05 97 18 100 01/07/25 10:00 Room Air* 0 21 01/07/25 09:42 134/74 01/07/25 08:33 96.5 96.5 Total Intake and Output 01/06/25 01/06/25 01/07/25 15:00 23:00 07:00 Intake Total 100 ml 560 ml 800 ml Output Total 650 ml 1000 ml Balance 100 ml -90 ml -200 ml medications Current Medications Medications Dose Ordered Sig/Wai Route Start Time Stop Time Status Last Admin Dose Admin Ondansetron HCl 4 mg Q4HP PRN IV 12/29/24 09:15 Docusate Sodium 100 mg BIDPRN PRN PO 12/29/24 09:15 Zinc Sulfate 220 mg DAILY PO 12/29/24 10:00 01/07/25 09:42 220 MG Ascorbic Acid 500 mg BID PO 12/29/24 10:00 01/07/25 09:42 500 MG Multivitamins 1 tab DAILY PO 12/29/24 10:00 01/07/25 09:42 1 TAB Acetaminophen 650 mg Q6HP PRN PO 12/29/24 09:15 12/30/24 08:58 650 MG Amlodipine Besylate 10 mg DAILY PO 12/29/24 10:00 01/07/25 09:42 10 MG Tamsulosin HCl 0.4 mg QPM PO 12/29/24 18:00 01/06/25 18:42 0.4 MG Metoprolol Tartrate 5 mg Q4HPRN PRN IV 12/29/24 15:30 12/30/24 08:57 5 MG Albuterol 2.5 mg Q4HR NEB 12/30/24 14:00 01/07/25 09:59 2.5 MG Ipratropium [place] 0.5 mg Q4HR NEB 12/30/24 14:00 01/07/25 09:59 0.5 MG Piperacillin Sod/ Tazobactam Sod 100 ml @ 25 mls/hr Q8HR IV 12/31/24 22:00 UNV Piperacillin Sod/ Tazobactam Sod 100 ml @ 25 mls/hr Q8HR IV 12/31/24 22:00 01/07/25 05:46 25 MLS/HR Atorvastatin Calcium 20 mg HS PO 01/01/25 22:00 01/06/25 22:00 20 MG Sodium Bicarbonate 650 mg TID PO 01/02/25 22:00 01/06/25 22:00 650 MG Furosemide 40 mg BIDD PO 01/03/25 18:00 01/07/25 05:50 40 MG Diagnostic Test (Pha) 1 strip ACHS 01/05/25 11:30 01/07/25 12:13 1 STRIP Insulin Human Regular ACHS SC 01/05/25 11:30 01/07/25 12:13 10 UNITS Dextrose 50 ml UD PRN IV 01/05/25 09:45 Methylprednisolone Sodium Succinate 40 mg Q8HR IV 01/06/25 22:00 01/07/25 05:46 40 MG Budesonide 0.5 mg BID NEB 01/06/25 22:00 01/07/25 07:08 0.5 MG objective General Appearance: alert, no distress HEENT: EOMI, PERRLA, normal external inspect of ears, no icterus, no nasal drainage Neck: no carotid bruit, no jugular venous distention (JVD), no lymphadenopathy Chest: normal thorax Respiratory: clear to auscultation, normal air movement Cardiovascular: regular rate and rhythm, no diastolic murmur, no jugular venous distention (JVD), no rub, no systolic murmur Abdominal: soft, no hepatomegaly, no mass, no splenomegaly, no tenderness Genitourinary: grossly normal external Musculoskeletal: no joint tenderness, no swelling Extremities: normal pulses, no calf tenderness, no clubbing, no cyanosis, no edema Skin: no bruising, no jaundice, no rash Neurological: alert, No focal deficit laboratory and microbiology Laboratory Tests 01/07/25 05:53 Test 01/07/25 05:53 Range/Units Serum Glucose 307 #H 74-106 mg/dL Problem List 1. Sepsis Monitor, IV fluids, IV abx, cardiology consult 2. Hypoglycemia Monitor, hypoglycemia treatment 3. DM II Monitor, wound care consult 4. Pneumonia Monitor, IV abx 5. Bed bound Monitor 6. Acute cystitis w/o hematuria Monitor, IV abx 7. Hx of CVA with residual deficits Monitor 8. CKD3b Monitor, nephrology consult 9. Acute hypoxic respiratory failure Monitor, med-neb treatments, pulmonary consult, IV antibiotics Assessment/Plan Subjective Patient is awake and alert. Objective Patient is having some productive cough today. I did update patient's mother yesterday. Patient was admitted for sepsis related to complicated UTI with resolved metabolic encephalopathy and pneumonia. Patient has underlying CKD stage III. Patient's creatinine level has been stable. Plan Continue antibiotics with Zosyn. ID recommendations appreciated. Repeat chest x- ray ordered for today. Plan discussed with: Patient, Other CC Plasma Assessment Blood Product Administration S: [id number] RAÚL STEEL NP Jan 07, 2025 12:24
--- NOTE | 2025-01-07 12:34 | DVHPN2 ---
Progress Note - Dictate Date Seen: Jan 07, 2025 Medical Necessity Reason Pt with a Central, PICC or Fol: Yes The following are medically ne: Smith Catheter Reason for smith catheter: Strict I&O Subjective Improving chest congestion and shortness of breath and cough vital signs Vital Sign Date Time Temp Pulse Resp B/P (MAP) Pulse Ox O2 Delivery O2 Flow Rate FiO2 01/07/25 10:05 97 18 100 01/07/25 10:00 Room Air* 0 21 01/07/25 09:42 134/74 01/07/25 08:33 96.5 96.5 Total Intake and Output 01/06/25 01/06/25 01/07/25 15:00 23:00 07:00 Intake Total 100 ml 560 ml 800 ml Output Total 650 ml 1000 ml Balance 100 ml -90 ml -200 ml medications Current Medications Medications Dose Ordered Sig/Wai Route Start Time Stop Time Status Last Admin Dose Admin Ondansetron HCl 4 mg Q4HP PRN IV 12/29/24 09:15 Docusate Sodium 100 mg BIDPRN PRN PO 12/29/24 09:15 Zinc Sulfate 220 mg DAILY PO 12/29/24 10:00 01/07/25 09:42 220 MG Ascorbic Acid 500 mg BID PO 12/29/24 10:00 01/07/25 09:42 500 MG Multivitamins 1 tab DAILY PO 12/29/24 10:00 01/07/25 09:42 1 TAB Acetaminophen 650 mg Q6HP PRN PO 12/29/24 09:15 12/30/24 08:58 650 MG Amlodipine Besylate 10 mg DAILY PO 12/29/24 10:00 01/07/25 09:42 10 MG Tamsulosin HCl 0.4 mg QPM PO 12/29/24 18:00 01/06/25 18:42 0.4 MG Metoprolol Tartrate 5 mg Q4HPRN PRN IV 12/29/24 15:30 12/30/24 08:57 5 MG Albuterol 2.5 mg Q4HR NEB 12/30/24 14:00 01/07/25 09:59 2.5 MG Ipratropium [place] 0.5 mg Q4HR NEB 12/30/24 14:00 01/07/25 09:59 0.5 MG Piperacillin Sod/ Tazobactam Sod 100 ml @ 25 mls/hr Q8HR IV 12/31/24 22:00 UNV Piperacillin Sod/ Tazobactam Sod 100 ml @ 25 mls/hr Q8HR IV 12/31/24 22:00 01/07/25 05:46 25 MLS/HR Atorvastatin Calcium 20 mg HS PO 01/01/25 22:00 01/06/25 22:00 20 MG Sodium Bicarbonate 650 mg TID PO 01/02/25 22:00 01/06/25 22:00 650 MG Furosemide 40 mg BIDD PO 01/03/25 18:00 01/07/25 05:50 40 MG Diagnostic Test (Pha) 1 strip ACHS 01/05/25 11:30 01/07/25 12:13 1 STRIP Insulin Human Regular ACHS SC 01/05/25 11:30 01/07/25 12:13 10 UNITS Dextrose 50 ml UD PRN IV 01/05/25 09:45 Methylprednisolone Sodium Succinate 40 mg Q8HR IV 01/06/25 22:00 01/07/25 05:46 40 MG Budesonide 0.5 mg BID NEB 01/06/25 22:00 01/07/25 07:08 0.5 MG objective Gen: NAD HEENT: NC,AT Lungs: Bilateral rales Cardiac: Tachycardia, no murmur Abd: soft, no tenderness Ext: no edema + Smith laboratory and microbiology Laboratory Tests 01/07/25 05:53 Test 01/07/25 05:53 Range/Units Serum Glucose 307 #H 74-106 mg/dL Assessment/Plan Assessment: Acute kidney injury CKD III. (Baseline Cr: 1.6 mg/dl on May/2024) Acute hypoxic respiratory failure: Improving Sepsis secondary to pneumonia Acute on Chronic diastolic CHF Acute anemia DM HTN HLD h/o CVA with residual left sided weakness bed bound Plan: Continue maintenance Lasix p.o. Smith is present Continue Sodium bicarb 650 mg PO TID Bronchodilator therapy p.r.n. monitor H&H and transfuse if Hb < 7 g/dl Continue IV antibiotics Pulmonary consult daily BMP, and Mg Continue Flomax strict I&Os No indication for renal replacement therapy Stable from Nephrology perspective Plan discussed with: Patient CC Plasma Assessment Blood Product Administration S: [id number] GISELE ABREU MD Jan 07, 2025 12:34
--- NOTE | 2025-01-07 17:02 | DVH ---
EXAM: XY CHEST PORTABLE HISTORY: Increased SOB COMPARISON: XY CHEST XRAY 1 VIEW on DOS: 01/06/25, XY CHEST XRAY 1 VIEW on DOS: 01/04/25, XY CHEST PORT ABLE on DOS: 12/30/24, XY CHEST PORTABLE on DOS: 12/29/24, XY CHEST PORTABLE on DOS: 06/08/24 TECHNIQUE: Portable upright AP view of the chest was performed. FINDINGS: There are diffuse bilateral alveolar and interstitial infiltrates, slightly greater centrally, with m ild worsening compared with the chest x-ray performed 1 day earlier. No pneumothorax. The heart is e nlarged. The loop of colon is interposed between the right hemidiaphragm and liver. IMPRESSION: Cardiomegaly and diffuse bilateral interstitial and alveolar infiltrates, with mild worsening compare d with chest x-ray performed 1 day earlier. This appearance may be due to CHF and/or pneumonia.
--- NOTE | 2025-01-07 23:50 | DVHPN2 ---
Progress Note - Dictate Date Seen: Jan 07, 2025 Medical Necessity Reason Pt with a Central, PICC or Fol: Yes The following are medically ne: Smith Catheter Reason for smith catheter: Strict I&O Subjective Patient seen and examined at bedside. Breathing on room air. Overnight events reviewed. vital signs Vital Sign Date Time Temp Pulse Resp B/P (MAP) Pulse Ox O2 Delivery O2 Flow Rate FiO2 01/07/25 22:42 95 18 100 01/07/25 22:34 Room Air* 0 21 01/07/25 21:00 97.9 141/80 (100) 97.9 Total Intake and Output 01/06/25 01/06/25 01/07/25 15:00 23:00 07:00 Intake Total 100 ml 560 ml 800 ml Output Total 650 ml 1000 ml Balance 100 ml -90 ml -200 ml medications Current Medications Medications Dose Ordered Sig/Wai Route Start Time Stop Time Status Last Admin Dose Admin Ondansetron HCl 4 mg Q4HP PRN IV 12/29/24 09:15 Docusate Sodium 100 mg BIDPRN PRN PO 12/29/24 09:15 Zinc Sulfate 220 mg DAILY PO 12/29/24 10:00 01/07/25 09:42 220 MG Ascorbic Acid 500 mg BID PO 12/29/24 10:00 01/07/25 22:56 500 MG Multivitamins 1 tab DAILY PO 12/29/24 10:00 01/07/25 09:42 1 TAB Acetaminophen 650 mg Q6HP PRN PO 12/29/24 09:15 12/30/24 08:58 650 MG Amlodipine Besylate 10 mg DAILY PO 12/29/24 10:00 01/07/25 09:42 10 MG Tamsulosin HCl 0.4 mg QPM PO 12/29/24 18:00 01/07/25 17:23 0.4 MG Metoprolol Tartrate 5 mg Q4HPRN PRN IV 12/29/24 15:30 12/30/24 08:57 5 MG Albuterol 2.5 mg Q4HR NEB 12/30/24 14:00 01/07/25 22:34 2.5 MG Ipratropium [place] 0.5 mg Q4HR NEB 12/30/24 14:00 01/07/25 22:34 0.5 MG Piperacillin Sod/ Tazobactam Sod 100 ml @ 25 mls/hr Q8HR IV 12/31/24 22:00 UNV Atorvastatin Calcium 20 mg HS PO 01/01/25 22:00 01/07/25 22:56 20 MG Sodium Bicarbonate 650 mg TID PO 01/02/25 22:00 01/07/25 22:59 650 MG Furosemide 40 mg BIDD PO 01/03/25 18:00 01/07/25 17:23 40 MG Diagnostic Test (Pha) 1 strip ACHS 01/05/25 11:30 01/07/25 22:27 1 STRIP Insulin Human Regular ACHS SC 01/05/25 11:30 01/07/25 22:06 8 UNITS Dextrose 50 ml UD PRN IV 01/05/25 09:45 Methylprednisolone Sodium Succinate 40 mg Q8HR IV 01/06/25 22:00 01/07/25 22:56 40 MG Budesonide 0.5 mg BID NEB 01/06/25 22:00 01/07/25 18:25 0.5 MG Ceftriaxone Sodium 50 ml @ 100 mls/hr DAILY@09 IV 01/08/25 09:00 objective Gen.: Patient lying in bed in no apparent distress. On room air. Head: Normocephalic, atraumatic. Eyes: EOMI/PERRLA. Ears: Normal hearing. Normal anatomy. Neck/trachea: Trachea midline, supple. Nose: Normal external anatomy. Mouth: Moist mucous membranes. Chest: Decreased air entry bilaterally. Wheezing noted. No rhonchi. Cardiovascular: Positive S1, positive S2. Regular rate and rhythm. Abdomen: Positive bowel sounds in all 4 quadrants. Soft, non-tender, non- distended. : Deferred. Rectal: Deferred. Skin: Warm, dry. Intact. Extremities: 2+ radial pulses bilaterally. No lower extremity edema. Neuro: Awake, alert, oriented x3. No gross motor or sensory deficits. Cranial nerves II through XII intact. Gait not assessed. laboratory and microbiology Laboratory Tests 01/07/25 05:53 Test 01/07/25 05:53 Range/Units Serum Glucose 307 #H 74-106 mg/dL Assessment/Plan Impression: Acute hypoxic respiratory failure Sepsis DM type II w/ hypoglycemia Urinary tract infection CVA with left-sided deficits Pneumonia, likely gram negative Cachexia, BMI 13.9 Events: On room air Supplemental oxygen PRN Continue with head of bed elevation and aspiration precautions Continue bronchodilators/Pulmicort Continue steroids Chest physiotherapy. Incentive spirometry Complete antibiotic course. Continue antifungal ID recommendations appreciated. Vitamin supplementation Cardiology recommendations appreciated Monitor hemoglobin Monitor WBC WBC wnl. Diurese to euvolemia - Lasix 40 mg PO BID. Monitor renal function. Monitor electrolytes. Supplement as necessary. Monitor ins and outs. Nephrology recommendations appreciated NTS PRN. Dispo per hospitalist Labs and imaging reviewed. Rest of plan as noted below. Plan: Supplemental oxygen PRN Keep O2 sats above 92%. Head of bed elevation Aspiration precautions. NTS Continue bronchodilators. Steroids Complete antibiotic course Accu-Cheks for glycemic monitoring DVT prophylaxis. Prognosis: Guarded given patient's multiple co-morbidities. Rest of plan per hospitalist and other consultants. Thank you, ANITHA Vergara, for allowing me to participate in this patient's care. Further recommendations will depend on the patient's clinical course. Please do not hesitate to contact me if you have any questions or concerns. This medical document was created using an electronic medical record system with [employer] dictation system. Although these documentations are being carefully reviewed, there may still be some phonetic and typographical changes. The errors are purely typographical, due to imperfection on the software program, and do not reflect any compromise in the patient's medical care. Plan discussed with: Patient, Other (CARMEN Santana) CC Plasma Assessment Blood Product Administration S: [id number] EDGARDO CULLEN MD Jan 07, 2025 23:50
[2025-01-08] VITALS (22 sets, daily range): BP systolic 128–164; BP diastolic 77–88; PULSE 88–106; RESP 12–20; TEMP 97.7–99.1; O2SAT 93–100
--- NOTE | 2025-01-08 07:18 | DVHPN2 ---
Progress Note - Dictate Date Seen: Jan 08, 2025 Medical Necessity Reason Pt with a Central, PICC or Fol: Yes The following are medically ne: Smith Catheter Reason for smith catheter: Strict I&O vital signs Vital Sign Date Time Temp Pulse Resp B/P (MAP) Pulse Ox O2 Delivery O2 Flow Rate FiO2 01/08/25 07:01 100 16 100 01/08/25 06:53 Room Air* 0 21 01/08/25 05:44 128/83 01/08/25 05:00 97.8 97.8 Total Intake and Output 01/07/25 01/07/25 01/08/25 15:00 23:00 07:00 Intake Total 100 ml 100 ml 100 ml Output Total 625 ml 450 ml Balance 100 ml -525 ml -350 ml medications Current Medications Medications Dose Ordered Sig/Wai Route Start Time Stop Time Status Last Admin Dose Admin Ondansetron HCl 4 mg Q4HP PRN IV 12/29/24 09:15 Docusate Sodium 100 mg BIDPRN PRN PO 12/29/24 09:15 Zinc Sulfate 220 mg DAILY PO 12/29/24 10:00 01/07/25 09:42 220 MG Ascorbic Acid 500 mg BID PO 12/29/24 10:00 01/07/25 22:56 500 MG Multivitamins 1 tab DAILY PO 12/29/24 10:00 01/07/25 09:42 1 TAB Acetaminophen 650 mg Q6HP PRN PO 12/29/24 09:15 12/30/24 08:58 650 MG Amlodipine Besylate 10 mg DAILY PO 12/29/24 10:00 01/07/25 09:42 10 MG Tamsulosin HCl 0.4 mg QPM PO 12/29/24 18:00 01/07/25 17:23 0.4 MG Metoprolol Tartrate 5 mg Q4HPRN PRN IV 12/29/24 15:30 12/30/24 08:57 5 MG Albuterol 2.5 mg Q4HR NEB 12/30/24 14:00 01/08/25 06:53 2.5 MG Ipratropium [place] 0.5 mg Q4HR NEB 12/30/24 14:00 01/08/25 06:53 0.5 MG Piperacillin Sod/ Tazobactam Sod 100 ml @ 25 mls/hr Q8HR IV 12/31/24 22:00 UNV Atorvastatin Calcium 20 mg HS PO 01/01/25 22:00 01/07/25 22:56 20 MG Sodium Bicarbonate 650 mg TID PO 01/02/25 22:00 01/08/25 05:44 650 MG Furosemide 40 mg BIDD PO 01/03/25 18:00 01/08/25 05:44 40 MG Diagnostic Test (Pha) 1 strip ACHS 01/05/25 11:30 01/08/25 06:01 1 STRIP Insulin Human Regular ACHS SC 01/05/25 11:30 01/08/25 06:01 8 UNITS Dextrose 50 ml UD PRN IV 01/05/25 09:45 Methylprednisolone Sodium Succinate 40 mg Q8HR IV 01/06/25 22:00 01/08/25 05:43 40 MG Budesonide 0.5 mg BID NEB 01/06/25 22:00 01/08/25 06:53 0.5 MG Ceftriaxone Sodium 50 ml @ 100 mls/hr DAILY@09 IV 01/08/25 09:00 laboratory and microbiology Laboratory Tests 01/07/25 05:53 Test 01/07/25 05:53 Range/Units Serum Glucose 307 #H 74-106 mg/dL Assessment/Plan Subjective Seen and examined at the bedside within telemetry. Maintaining sinus rhythm upon telemetry review. Hemodynamics remain stable. Chart reviewed. Being followed by Nephrology/ID/Pulmonary ASSESSMENT: This is a 44-year old male known outside to our practice who initially presented for altered mental status found to be hypoglycemic with initial serum glucose level of 44 which later improved status post Dextrose administration. It is of note, patient is on Glipizide outpatient which could have attributed to the underlying hypoglycemia. Patient was also found tachycardic and febrile with highest documented temperature of 101.4 in the setting of sepsis from underlying pneumonia with superimposing urinary tract infection as initial WBC count was found elevated at 16.5 with peak lactic acid level of 2.7. Initial creatinine level found elevated at 2.15 with an initial potassium level of 5.5. Initial magnesium level found to be 1.7. TSH level was found normal at 4.37. D-Dimer did reveal elevation at 1.00. Patient does have underlying history of diastolic heart failure which patient underwent Echocardiogram (12/20/2024 [facility]) revealing TDS, EF 65%, stage I diastolic dysfunction, RV size and function is normal. mild LA dilation. Both AV and MV are opening adequately, mild TR with RVSP 26 mmhg. At present, BNP level was found elevated at 319 however chest imaging reveals no evidence for vascular congestion. 12-lead electrocardiogram upon arrival revealed sinus tachycardia at 109 bpm with no acute ischemic changes. Initial HS troponin level was found unremarkable at 16. As the patient presented with tachycardia and previously known history of diastolic heart failure, Cardiology services were involved for cardiac aspects of care. 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 Left Atrium: Left atrium is mildly dilated. No , No MS. Trace MR. Mild TR with RVSP 32 mmHg Echocardiogram: (06/09/2024 [facility]) revealed Left ventricle: Left ventricle is normal-sized with normal systolic function. LVEF was around 55%. There was no gross wall motion abnormality. Right ventricle was normal-sized with normal systolic function. Both atria were normal-sized. Aortic valve: Aortic valve is trileaflet. There was no aortic stenosis/insufficiency. There was no mitral regurgitation. There was trivial tricuspid regurgitation. Pulmonary valve was not well visualized. Right ventricular systolic pressure was around 30 mm Hg. There was no pericardial effusion Echocardiogram: (12/20/2024 [facility]) revealed TDS, EF 65%, stage I diastolic dysfunction, RV size and function is normal. mild LA dilation. Both AV and MV are opening adequately, mild TR with RVSP 26 mmhg. BLE Venous Duplex revealed IMPRESSION: 1. There is no sonographic evidence for DVT in the lower extremities. VQ Scan revealed IMPRESSION: 1. Normal perfusion. No evidence of pulmonary embolism. 2. Abnormal ventilation is likely due to multifocal airspace disease seen on recent radiographs. Echocardiogram reported: Left ventricle: Left ventricle was normal-sized with normal systolic function. LVEF was 64%. There was no gross wall motion abnormality. Right ventricle was normal-sized with normal systolic function. Both atria were normal-sized. Aortic valve was trileaflet. There was no aortic insufficiency/stenosis. There was trivial mitral/tricuspid regurgitation. There was no pulmonary valve insufficiency. Right ventricular systolic pressure was assessed at 34 mm Hg. There was no pericardial effusion. Symptomatic hypoglycemia, resolved Sepsis, in the setting of pneumonia/complicated UTI Sinus tachycardia, likely secondary to the above Abnormal D-Dimer, PE/DVT ruled out Chronic diastolic heart failure Baseline poor functional status Old history of previous CVA Residual left hemiparesis Chronic kidney disease Diabetes mellitus II Hyperlipidemia Hypertension Hyperkalemia Anemia, significant CARDIAC SUGGESTIONS FOR MANAGEMENT: Fluid volume management per Nephrology secondary to renal status Proceed with close observation for overt signs of fluid overload Proceed with strict intakes, outputs, and daily weights Proceed with close rate and rhythm surveillance Sustain Magnesium level greater than 2.0 Sustain Potassium level greater than 4.0 Follow up renal function and electrolytes Supplemental oxygen as warranted PRN Lopressor (IV) for rate control On IV antibiotic therapy Management of diabetes mellitus/hypoglycemia as per primary team Management of sepsis (pneumonia/UTI) as per primary team Management of chronic kidney disease as per Nephrology Management of co-morbidities per primary team Proceed with close hemodynamic surveillance Proceed with optimized blood pressure control Transfuse to sustain HGB level above 7.0 Management in telemetry Follow up aerodynamic consultant recommendations Will proceed to follow from a cardiac perspective Further recommendations per clinical progression All available diagnostic labs, EKG's, and images were personally reviewed Plan of care discussed with and agreed upon by patient / primary RN Prognosis: Guarded Thank you for allowing me to participate in the care of this patient. Further recommendations based on patients clinical course and progression, primary attending, and other consultants. Will continue to follow with primary attending. If you have any questions or concerns, please do not hesitate to contact me. A total of 55 minutes was spent reviewing the patient record, examining the patient, making a diagnostic and therapeutic plan, discussing this plan with medical personnel, following up on diagnostic studies and following the patient for clinical stability excluding any and all procedures. At least 50% of this time was spent in direct, [id number] Plan discussed with: Other (nurse) CC Plasma Assessment Blood Product Administration S: [id number] FAN HAMEED MD Jan 08, 2025 07:18
[2025-01-08] MEDS: cefTRIAXone 1GM/50ML D5W 50 ML IV SCH (09:23)
--- NOTE | 2025-01-08 13:43 | DVHPN2 ---
Progress Note - Dictate Date Seen: Jan 08, 2025 Medical Necessity Reason Pt with a Central, PICC or Fol: Yes The following are medically ne: Smith Catheter Reason for smith catheter: Strict I&O Subjective Improving chest congestion and shortness of breath and cough vital signs Vital Sign Date Time Temp Pulse Resp B/P (MAP) Pulse Ox O2 Delivery O2 Flow Rate FiO2 01/08/25 13:29 103 16 100 01/08/25 13:23 Room Air* 0 21 01/08/25 12:35 97.7 135/87 (103) 97.7 Total Intake and Output 01/07/25 01/07/25 01/08/25 15:00 23:00 07:00 Intake Total 100 ml 100 ml 100 ml Output Total 625 ml 450 ml Balance 100 ml -525 ml -350 ml medications Current Medications Medications Dose Ordered Sig/Wai Route Start Time Stop Time Status Last Admin Dose Admin Ondansetron HCl 4 mg Q4HP PRN IV 12/29/24 09:15 Docusate Sodium 100 mg BIDPRN PRN PO 12/29/24 09:15 Zinc Sulfate 220 mg DAILY PO 12/29/24 10:00 01/08/25 09:21 220 MG Ascorbic Acid 500 mg BID PO 12/29/24 10:00 01/08/25 09:21 500 MG Multivitamins 1 tab DAILY PO 12/29/24 10:00 01/08/25 09:21 1 TAB Acetaminophen 650 mg Q6HP PRN PO 12/29/24 09:15 12/30/24 08:58 650 MG Amlodipine Besylate 10 mg DAILY PO 12/29/24 10:00 01/08/25 09:23 10 MG Tamsulosin HCl 0.4 mg QPM PO 12/29/24 18:00 01/07/25 17:23 0.4 MG Metoprolol Tartrate 5 mg Q4HPRN PRN IV 12/29/24 15:30 12/30/24 08:57 5 MG Albuterol 2.5 mg Q4HR NEB 12/30/24 14:00 01/08/25 13:23 2.5 MG Ipratropium [place] 0.5 mg Q4HR NEB 12/30/24 14:00 01/08/25 13:23 0.5 MG Piperacillin Sod/ Tazobactam Sod 100 ml @ 25 mls/hr Q8HR IV 12/31/24 22:00 UNV Atorvastatin Calcium 20 mg HS PO 01/01/25 22:00 01/07/25 22:56 20 MG Sodium Bicarbonate 650 mg TID PO 01/02/25 22:00 01/08/25 05:44 650 MG Furosemide 40 mg BIDD PO 01/03/25 18:00 01/08/25 05:44 40 MG Diagnostic Test (Pha) 1 strip ACHS 01/05/25 11:30 01/08/25 11:30 1 STRIP Insulin Human Regular ACHS SC 01/05/25 11:30 01/08/25 12:10 10 UNITS Dextrose 50 ml UD PRN IV 01/05/25 09:45 Budesonide 0.5 mg BID NEB 01/06/25 22:00 01/08/25 06:53 0.5 MG Ceftriaxone Sodium 50 ml @ 100 mls/hr DAILY@09 IV 01/08/25 09:00 01/08/25 09:23 100 MLS/HR Insulin Glargine 5 units QAM SC 01/09/25 07:00 UNV objective Gen: NAD HEENT: NC,AT Lungs: Bilateral rales Cardiac: Tachycardia, no murmur Abd: soft, no tenderness Ext: no edema + Smith laboratory and microbiology Laboratory Tests 01/07/25 05:53 Test 01/07/25 05:53 Range/Units Serum Glucose 307 #H 74-106 mg/dL Assessment/Plan Assessment: Acute kidney injury CKD III. (Baseline Cr: 1.6 mg/dl on May/2024) Acute hypoxic respiratory failure: Improving Sepsis secondary to pneumonia Acute on Chronic diastolic CHF Acute anemia DM HTN HLD h/o CVA with residual left sided weakness bed bound Plan: Lasix IV 40 mg daily, then continue with Lasix 40 mg twice a day Continue Sodium bicarb 650 mg PO TID Bronchodilator therapy p.r.n. monitor H&H and transfuse if Hb < 7 g/dl Continue IV antibiotics Pulmonary consult daily BMP, and Mg Continue Flomax strict I&Os No indication for renal replacement therapy Stable from Nephrology perspective Plan discussed with: Patient CC Plasma Assessment Blood Product Administration S: [id number] GISELE ABREU MD Jan 08, 2025 13:43
--- NOTE | 2025-01-08 15:16 | DVH ---
CLINICAL INFORMATION: 44 years old, Male; pneumonia. TECHNIQUE: Single AP portable chest radiograph was obtained. COMPARISON: XY CHEST PORTABLE on DOS: 01/07/25, XY CHEST XRAY 1 VIEW on DOS: 01/06/25, XY CHEST XRAY 1 VIEW on DOS: 01/04/25 FINDINGS: Improved bilateral interstitial and patchy airspace opacities bilaterally, may be infectious or infla mmatory in nature or due to pulmonary edema in the appropriate clinical setting. No pneumothorax. No other significant interval change. IMPRESSION: Improved bilateral interstitial and airspace opacities as described above.
[2025-01-08] MEDS: FUROSEMIDE 40 MG/4 ML VIAL IV ONE (15:18)
[2025-01-08] MEDS: InsuLIN REG 1unit/0.01ml Soln (100units/ml) IV ONE (18:22)
--- NOTE | 2025-01-08 20:12 | DVHPN2 ---
Progress Note Date Seen: Jan 08, 2025 Medical Necessity Reason Pt with a Central, PICC or Fol: Yes The following are medically ne: Smith Catheter Reason for smith catheter: Strict I&O Subjective Patient reports: No new complaints Review of Systems: CVS:Normal, RESPIRATORY:Normal, NEURO:Normal Objective vital signs Vital Sign Date Time Temp Pulse Resp B/P (MAP) Pulse Ox O2 Delivery O2 Flow Rate FiO2 01/08/25 18:04 92 18 99 01/08/25 17:54 Room Air 0.0 01/08/25 17:54 21 01/08/25 17:00 97.7 164/88 (113) 97.7 Total Intake and Output 01/07/25 01/07/25 01/08/25 15:00 23:00 07:00 Intake Total 100 ml 100 ml 100 ml Output Total 625 ml 450 ml Balance 100 ml -525 ml -350 ml medications Current Medications Medications Dose Ordered Sig/Wai Route Start Time Stop Time Status Last Admin Dose Admin Ondansetron HCl 4 mg Q4HP PRN IV 12/29/24 09:15 Docusate Sodium 100 mg BIDPRN PRN PO 12/29/24 09:15 Zinc Sulfate 220 mg DAILY PO 12/29/24 10:00 01/08/25 09:21 220 MG Ascorbic Acid 500 mg BID PO 12/29/24 10:00 01/08/25 09:21 500 MG Multivitamins 1 tab DAILY PO 12/29/24 10:00 01/08/25 09:21 1 TAB Acetaminophen 650 mg Q6HP PRN PO 12/29/24 09:15 12/30/24 08:58 650 MG Amlodipine Besylate 10 mg DAILY PO 12/29/24 10:00 01/08/25 09:23 10 MG Tamsulosin HCl 0.4 mg QPM PO 12/29/24 18:00 01/08/25 17:30 0.4 MG Metoprolol Tartrate 5 mg Q4HPRN PRN IV 12/29/24 15:30 12/30/24 08:57 5 MG Albuterol 2.5 mg Q4HR NEB 12/30/24 14:00 01/08/25 17:54 2.5 MG Ipratropium [place] 0.5 mg Q4HR NEB 12/30/24 14:00 01/08/25 17:54 0.5 MG Piperacillin Sod/ Tazobactam Sod 100 ml @ 25 mls/hr Q8HR IV 12/31/24 22:00 UNV Atorvastatin Calcium 20 mg HS PO 01/01/25 22:00 01/07/25 22:56 20 MG Sodium Bicarbonate 650 mg TID PO 01/02/25 22:00 01/08/25 15:17 650 MG Diagnostic Test (Pha) 1 strip ACHS 01/05/25 11:30 01/08/25 17:03 1 STRIP Insulin Human Regular ACHS SC 01/05/25 11:30 01/08/25 17:03 10 UNITS Dextrose 50 ml UD PRN IV 01/05/25 09:45 Budesonide 0.5 mg BID NEB 01/06/25 22:00 01/08/25 17:54 0.5 MG Ceftriaxone Sodium 50 ml @ 100 mls/hr DAILY@09 IV 01/08/25 09:00 01/08/25 09:23 100 MLS/HR Furosemide 40 mg BIDD PO 01/09/25 08:00 Meropenem 50 ml @ 17 mls/hr Q12HR IV 01/08/25 22:00 UNV Insulin Glargine 10 units QAM SC 01/08/25 20:15 UNV Examination: GENERAL:Normal, LUNGS:Normal, CVS:Normal, ABDOMEN:Normal, SKIN:Normal, NEURO:Normal laboratory and microbiology Laboratory Tests 01/07/25 05:53 Test 01/07/25 05:53 Range/Units Serum Glucose 307 #H 74-106 mg/dL Microbiology Date/Time Source Procedure Growth Status 01/01/25 10:49 Sputum Gram Stain - Final Complete 01/01/25 10:49 Sputum Respiratory Culture - Final Complete 12/29/24 21:31 Nose MRSA Screen - Final Complete 12/29/24 09:50 Blood Blood Culture - Final NO GROWTH AFTER 5 DAYS OF INCUBATION. Complete 12/29/24 06:57 Voided Urine Urine Culture - Final Yeast, not Diana albicans Complete Labs and/or images reviewed: Labs reviewed by me, Image(s) reviewed by me Problem List/Assessment/Plan Problem List/Assessment/Plan 1. Sepsis Monitor, IV fluids, IV abx, cardiology consult 2. Hypoglycemia Monitor, hypoglycemia treatment 3. DM II Monitor, wound care consult 4. Pneumonia likely Gram-negative or Gram-positive Monitor, IV abx 5. Bed bound Monitor 6. Acute cystitis w/o hematuria Monitor, IV abx 7. Hx of CVA with residual deficits Monitor 8. CKD3b Monitor, nephrology consult 9. Acute hypoxic respiratory failure related to pneumonia Monitor, med-neb treatments, pulmonary consult, IV antibiotics Assessment/Plan Subjective Patient is awake and alert. Objective . Patient was admitted for sepsis related to complicated UTI with resolved metabolic encephalopathy and pneumonia. Patient has underlying CKD stage III. Patient's creatinine level has been stable. Patient's blood sugar has been in the 400s. Patient was given 5 units of Lantus and 7 units IV of regular insulin. We will continue to monitor blood sugars. Plan Continue antibiotics with Zosyn. ID recommendations appreciated. Chest x-ray shows improved aeration, discharge planning. Plan discussed with: Patient My Orders My Orders Orders - ASIYA JACQUES Procedure Category Date Status Time Chest Xray 1 View XY 01/08/25 Resulted 11:26 Insulin Lantus PHA 01/08/25 Logged (Glargine) (Lantus) 20:15 Date of Service: Jan 08, 2025 Billing Provider: MARIBEL WHALEN MD Common Visit Codes: [id number] INP/OBS CARE (MOD) CC Plasma Assessment Blood Product Administration S: [id number] ASIYA JACQUES Jan 08, 2025 20:12
[2025-01-08] MEDS ORDERED: MEROPENEM 500MG IVPB 50 ML IV SCH (22:00)
--- NOTE | 2025-01-08 23:53 | DVHPN2 ---
Progress Note - Dictate Date Seen: Jan 08, 2025 Medical Necessity Reason Pt with a Central, PICC or Fol: Yes The following are medically ne: Smith Catheter Reason for smith catheter: Strict I&O Subjective Patient seen and examined at bedside. Breathing on room air. Overnight events reviewed. vital signs Vital Sign Date Time Temp Pulse Resp B/P (MAP) Pulse Ox O2 Delivery O2 Flow Rate FiO2 01/08/25 22:01 95 Room Air 0.0 01/08/25 22:01 21 01/08/25 22:01 102 20 01/08/25 21:00 99.1 151/77 (101) 99.1 Total Intake and Output 01/07/25 01/07/25 01/08/25 15:00 23:00 07:00 Intake Total 100 ml 100 ml 100 ml Output Total 625 ml 450 ml Balance 100 ml -525 ml -350 ml medications Current Medications Medications Dose Ordered Sig/Wai Route Start Time Stop Time Status Last Admin Dose Admin Ondansetron HCl 4 mg Q4HP PRN IV 12/29/24 09:15 Docusate Sodium 100 mg BIDPRN PRN PO 12/29/24 09:15 Zinc Sulfate 220 mg DAILY PO 12/29/24 10:00 01/08/25 09:21 220 MG Ascorbic Acid 500 mg BID PO 12/29/24 10:00 01/08/25 21:29 500 MG Multivitamins 1 tab DAILY PO 12/29/24 10:00 01/08/25 09:21 1 TAB Acetaminophen 650 mg Q6HP PRN PO 12/29/24 09:15 12/30/24 08:58 650 MG Amlodipine Besylate 10 mg DAILY PO 12/29/24 10:00 01/08/25 09:23 10 MG Tamsulosin HCl 0.4 mg QPM PO 12/29/24 18:00 01/08/25 17:30 0.4 MG Metoprolol Tartrate 5 mg Q4HPRN PRN IV 12/29/24 15:30 12/30/24 08:57 5 MG Albuterol 2.5 mg Q4HR NEB 12/30/24 14:00 01/08/25 22:01 2.5 MG Ipratropium [place] 0.5 mg Q4HR NEB 12/30/24 14:00 01/08/25 22:01 0.5 MG Piperacillin Sod/ Tazobactam Sod 100 ml @ 25 mls/hr Q8HR IV 12/31/24 22:00 UNV Atorvastatin Calcium 20 mg HS PO 01/01/25 22:00 01/08/25 21:29 20 MG Sodium Bicarbonate 650 mg TID PO 01/02/25 22:00 01/08/25 21:29 650 MG Diagnostic Test (Pha) 1 strip ACHS 01/05/25 11:30 01/08/25 21:33 1 STRIP Insulin Human Regular ACHS SC 01/05/25 11:30 01/08/25 21:37 8 UNITS Dextrose 50 ml UD PRN IV 01/05/25 09:45 Budesonide 0.5 mg BID NEB 01/06/25 22:00 01/08/25 17:54 0.5 MG Ceftriaxone Sodium 50 ml @ 100 mls/hr DAILY@09 IV 01/08/25 09:00 01/08/25 09:23 100 MLS/HR Furosemide 40 mg BIDD PO 01/09/25 08:00 Meropenem 50 ml @ 17 mls/hr Q12HR IV 01/08/25 22:00 UNV Insulin Glargine 10 units QAM SC 01/09/25 07:00 objective Gen.: Patient lying in bed in no apparent distress. On room air. Head: Normocephalic, atraumatic. Eyes: EOMI/PERRLA. Ears: Normal hearing. Normal anatomy. Neck/trachea: Trachea midline, supple. Nose: Normal external anatomy. Mouth: Moist mucous membranes. Chest: Decreased air entry bilaterally. Wheezing noted. No rhonchi. Cardiovascular: Positive S1, positive S2. Regular rate and rhythm. Abdomen: Positive bowel sounds in all 4 quadrants. Soft, non-tender, non- distended. : Deferred. Rectal: Deferred. Skin: Warm, dry. Intact. Extremities: 2+ radial pulses bilaterally. No lower extremity edema. Neuro: Awake, alert, oriented x3. No gross motor or sensory deficits. Cranial nerves II through XII intact. Gait not assessed. laboratory and microbiology Laboratory Tests 01/07/25 05:53 Test 01/07/25 05:53 Range/Units Serum Glucose 307 #H 74-106 mg/dL Assessment/Plan Impression: Acute hypoxic respiratory failure Sepsis DM type II w/ hypoglycemia Urinary tract infection CVA with left-sided deficits Pneumonia, likely gram negative Cachexia, BMI 13.9 Events: Remains on room air Supplemental oxygen PRN Continue with head of bed elevation and aspiration precautions Continue bronchodilators/Pulmicort Mucomyst/chest physiotherapy. Incentive spirometry Stop Solu-Medrol due to hyperglycemia Accu-Cheks, ISS. Complete antibiotic course. ID recommendations appreciated. Vitamin supplementation Cardiology recommendations appreciated Monitor hemoglobin Diurese to euvolemia w/ Lasix. Monitor renal function. Monitor electrolytes. Supplement as necessary. Monitor ins and outs. Nephrology recommendations appreciated NTS PRN. Dispo per hospitalist Labs and imaging reviewed. Rest of plan as noted below. Plan: Supplemental oxygen PRN Keep O2 sats above 92%. Head of bed elevation Aspiration precautions. NTS Continue bronchodilators. Steroids Complete antibiotic course Accu-Cheks for glycemic monitoring DVT prophylaxis. Prognosis: Guarded given patient's multiple co-morbidities. Rest of plan per hospitalist and other consultants. Thank you, ANITHA Vergara, for allowing me to participate in this patient's care. Further recommendations will depend on the patient's clinical course. Please do not hesitate to contact me if you have any questions or concerns. This medical document was created using an electronic medical record system with [employer] dictation system. Although these documentations are being carefully reviewed, there may still be some phonetic and typographical changes. The errors are purely typographical, due to imperfection on the software program, and do not reflect any compromise in the patient's medical care. Plan discussed with: Patient, Other (CARMEN Farah) CC Plasma Assessment Blood Product Administration S: [id number] EDGARDO CULLEN MD Jan 08, 2025 23:53
[2025-01-09] VITALS (21 sets, daily range): BP systolic 135–168; BP diastolic 85–98; PULSE 90–105; RESP 16–21; TEMP 97–98.9; O2SAT 94–100
[2025-01-09] MEDS: INSULIN LANTUS (GLARGINE) 1 /0.01ml (100units/ml) SC SCH (06:14)
[2025-01-09] MEDS ORDERED: INSULIN LANTUS (GLARGINE) 1 /0.01ml (100units/ml) SC SCH (07:00)
[2025-01-09] MEDS: FUROSEMIDE 40 MG TAB PO SCH (09:27)
--- NOTE | 2025-01-09 11:38 | DVH ---
CHEST RADIOGRAPH Indication: pna Technique: Portable upright AP view of the chest was performed. Comparison: XY CHEST XRAY 1 VIEW on DOS: 01/08/25, XY CHEST PORTABLE on DOS: 01/07/25, XY CHEST XRAY 1 VIEW on DOS: 01/06/25, XY CHEST XRAY 1 VIEW on DOS: 01/04/25, XY CHEST PORTABLE on DOS: 12/30/24, XY CHES T PORTABLE on DOS: 01/07/25 FINDINGS: There are diffuse bilateral alveolar and interstitial infiltrates, slightly greater centrally, with m ild worsening compared with the chest x-ray performed 1 day earlier. No pneumothorax. The heart is e nlarged. The loop of colon is interposed between the right hemidiaphragm and liver. IMPRESSION: Cardiomegaly and diffuse bilateral interstitial and alveolar infiltrates, with mild worsening compare d with chest x-ray performed 1 day earlier. This appearance may be due to CHF and/or pneumonia.
--- NOTE | 2025-01-09 11:49 | DVHPN2 ---
Progress Note - Dictate Date Seen: Jan 09, 2025 Medical Necessity Reason Pt with a Central, PICC or Fol: Yes The following are medically ne: Smith Catheter Reason for smith catheter: Strict I&O vital signs Vital Sign Date Time Temp Pulse Resp B/P (MAP) Pulse Ox O2 Delivery O2 Flow Rate FiO2 01/09/25 10:09 98 Room Air 01/09/25 10:09 0 21 01/09/25 10:02 96 18 01/09/25 09:27 168/90 01/09/25 09:00 97.9 97.9 Total Intake and Output 01/08/25 01/08/25 01/09/25 15:00 23:00 07:00 Intake Total 1030 ml 230 ml Output Total 550 ml 1050 ml Balance 480 ml -820 ml medications Current Medications Medications Dose Ordered Sig/Wai Route Start Time Stop Time Status Last Admin Dose Admin Ondansetron HCl 4 mg Q4HP PRN IV 12/29/24 09:15 Docusate Sodium 100 mg BIDPRN PRN PO 12/29/24 09:15 Zinc Sulfate 220 mg DAILY PO 12/29/24 10:00 01/09/25 09:27 220 MG Ascorbic Acid 500 mg BID PO 12/29/24 10:00 01/09/25 09:26 500 MG Multivitamins 1 tab DAILY PO 12/29/24 10:00 01/09/25 09:25 1 TAB Acetaminophen 650 mg Q6HP PRN PO 12/29/24 09:15 12/30/24 08:58 650 MG Amlodipine Besylate 10 mg DAILY PO 12/29/24 10:00 01/09/25 09:27 10 MG Tamsulosin HCl 0.4 mg QPM PO 12/29/24 18:00 01/08/25 17:30 0.4 MG Metoprolol Tartrate 5 mg Q4HPRN PRN IV 12/29/24 15:30 12/30/24 08:57 5 MG Albuterol 2.5 mg Q4HR NEB 12/30/24 14:00 01/09/25 09:54 2.5 MG Ipratropium [place] 0.5 mg Q4HR NEB 12/30/24 14:00 01/09/25 09:54 0.5 MG Piperacillin Sod/ Tazobactam Sod 100 ml @ 25 mls/hr Q8HR IV 12/31/24 22:00 UNV Atorvastatin Calcium 20 mg HS PO 01/01/25 22:00 01/08/25 21:29 20 MG Sodium Bicarbonate 650 mg TID PO 01/02/25 22:00 01/09/25 06:04 650 MG Diagnostic Test (Pha) 1 strip ACHS 01/05/25 11:30 01/09/25 11:34 1 STRIP Insulin Human Regular ACHS SC 01/05/25 11:30 01/09/25 11:39 3 UNITS Dextrose 50 ml UD PRN IV 01/05/25 09:45 Budesonide 0.5 mg BID NEB 01/06/25 22:00 01/09/25 07:29 0.5 MG Ceftriaxone Sodium 50 ml @ 100 mls/hr DAILY@09 IV 01/08/25 09:00 01/09/25 09:24 100 MLS/HR Furosemide 40 mg BIDD PO 01/09/25 08:00 01/09/25 09:27 40 MG Meropenem 50 ml @ 17 mls/hr Q12HR IV 01/08/25 22:00 UNV Insulin Glargine 10 units QAM SC 01/09/25 07:00 01/09/25 06:14 10 UNITS laboratory and microbiology Laboratory Tests 01/07/25 05:53 Test 01/07/25 05:53 Range/Units Serum Glucose 307 #H 74-106 mg/dL Assessment/Plan Subjective Seen and examined at the bedside within telemetry. Maintaining sinus rhythm upon telemetry review. Hemodynamics remain stable. Chart reviewed. Being followed by Nephrology/ID/Pulmonary ASSESSMENT: This is a 44-year old male known outside to our practice who initially presented for altered mental status found to be hypoglycemic with initial serum glucose level of 44 which later improved status post Dextrose administration. It is of note, patient is on Glipizide outpatient which could have attributed to the underlying hypoglycemia. Patient was also found tachycardic and febrile with highest documented temperature of 101.4 in the setting of sepsis from underlying pneumonia with superimposing urinary tract infection as initial WBC count was found elevated at 16.5 with peak lactic acid level of 2.7. Initial creatinine level found elevated at 2.15 with an initial potassium level of 5.5. Initial magnesium level found to be 1.7. TSH level was found normal at 4.37. D-Dimer did reveal elevation at 1.00. Patient does have underlying history of diastolic heart failure which patient underwent Echocardiogram (12/20/2024 [facility]) revealing TDS, EF 65%, stage I diastolic dysfunction, RV size and function is normal. mild LA dilation. Both AV and MV are opening adequately, mild TR with RVSP 26 mmhg. At present, BNP level was found elevated at 319 however chest imaging reveals no evidence for vascular congestion. 12-lead electrocardiogram upon arrival revealed sinus tachycardia at 109 bpm with no acute ischemic changes. Initial HS troponin level was found unremarkable at 16. As the patient presented with tachycardia and previously known history of diastolic heart failure, Cardiology services were involved for cardiac aspects of care. 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 Left Atrium: Left atrium is mildly dilated. No , No MS. Trace MR. Mild TR with RVSP 32 mmHg Echocardiogram: (06/09/2024 [facility]) revealed Left ventricle: Left ventricle is normal-sized with normal systolic function. LVEF was around 55%. There was no gross wall motion abnormality. Right ventricle was normal-sized with normal systolic function. Both atria were normal-sized. Aortic valve: Aortic valve is trileaflet. There was no aortic stenosis/insufficiency. There was no mitral regurgitation. There was trivial tricuspid regurgitation. Pulmonary valve was not well visualized. Right ventricular systolic pressure was around 30 mm Hg. There was no pericardial effusion Echocardiogram: (12/20/2024 [facility]) revealed TDS, EF 65%, stage I diastolic dysfunction, RV size and function is normal. mild LA dilation. Both AV and MV are opening adequately, mild TR with RVSP 26 mmhg. BLE Venous Duplex revealed IMPRESSION: 1. There is no sonographic evidence for DVT in the lower extremities. VQ Scan revealed IMPRESSION: 1. Normal perfusion. No evidence of pulmonary embolism. 2. Abnormal ventilation is likely due to multifocal airspace disease seen on recent radiographs. Echocardiogram reported: Left ventricle: Left ventricle was normal-sized with normal systolic function. LVEF was 64%. There was no gross wall motion abnormality. Right ventricle was normal-sized with normal systolic function. Both atria were normal-sized. Aortic valve was trileaflet. There was no aortic insufficiency/stenosis. There was trivial mitral/tricuspid regurgitation. There was no pulmonary valve insufficiency. Right ventricular systolic pressure was assessed at 34 mm Hg. There was no pericardial effusion. Symptomatic hypoglycemia, resolved Sepsis, in the setting of pneumonia/complicated UTI Sinus tachycardia, likely secondary to the above Abnormal D-Dimer, PE/DVT ruled out Chronic diastolic heart failure Baseline poor functional status Old history of previous CVA Residual left hemiparesis Chronic kidney disease Diabetes mellitus II Hyperlipidemia Hypertension Hyperkalemia Anemia, significant CARDIAC SUGGESTIONS FOR MANAGEMENT: Fluid volume management per Nephrology secondary to renal status Proceed with close observation for overt signs of fluid overload Proceed with strict intakes, outputs, and daily weights Proceed with close rate and rhythm surveillance Sustain Magnesium level greater than 2.0 Sustain Potassium level greater than 4.0 Follow up renal function and electrolytes Supplemental oxygen as warranted PRN Lopressor (IV) for rate control On IV antibiotic therapy Management of diabetes mellitus/hypoglycemia as per primary team Management of sepsis (pneumonia/UTI) as per primary team Management of chronic kidney disease as per Nephrology Management of co-morbidities per primary team Proceed with close hemodynamic surveillance Proceed with optimized blood pressure control Transfuse to sustain HGB level above 7.0 Management in telemetry Follow up [employer] consultant recommendations Will proceed to follow from a cardiac perspective Further recommendations per clinical progression All available diagnostic labs, EKG's, and images were personally reviewed Plan of care discussed with and agreed upon by patient / primary RN Prognosis: Guarded Thank you for allowing me to participate in the care of this patient. Further recommendations based on patients clinical course and progression, primary attending, and other consultants. Will continue to follow with primary attending. If you have any questions or concerns, please do not hesitate to contact me. A total of 55 minutes was spent reviewing the patient record, examining the patient, making a diagnostic and therapeutic plan, discussing this plan with medical personnel, following up on diagnostic studies and following the patient for clinical stability excluding any and all procedures. At least 50% of this time was spent in direct, [id number] Plan discussed with: Other (nurse) CC Plasma Assessment Blood Product Administration S: [id number] FAN HAMEED MD Jan 09, 2025 11:49
--- NOTE | 2025-01-09 12:35 | DVHPN2 ---
Consult Progress Note Date Seen: Jan 07, 2025 Subjective Patient reports: Other (has a productive cough with crackles in the lungs bilaterally ) Objective vital signs Vital Sign Date Time Temp Pulse Resp B/P (MAP) Pulse Ox O2 Delivery O2 Flow Rate FiO2 01/09/25 10:09 98 Room Air 01/09/25 10:09 0 21 01/09/25 10:02 96 18 01/09/25 09:27 168/90 01/09/25 09:00 97.9 97.9 Total Intake and Output 01/08/25 01/08/25 01/09/25 15:00 23:00 07:00 Intake Total 1030 ml 230 ml Output Total 550 ml 1050 ml Balance 480 ml -820 ml medications Current Medications Medications Dose Ordered Sig/Wai Route Start Time Stop Time Status Last Admin Dose Admin Ondansetron HCl 4 mg Q4HP PRN IV 12/29/24 09:15 Docusate Sodium 100 mg BIDPRN PRN PO 12/29/24 09:15 Zinc Sulfate 220 mg DAILY PO 12/29/24 10:00 01/09/25 09:27 220 MG Ascorbic Acid 500 mg BID PO 12/29/24 10:00 01/09/25 09:26 500 MG Multivitamins 1 tab DAILY PO 12/29/24 10:00 01/09/25 09:25 1 TAB Acetaminophen 650 mg Q6HP PRN PO 12/29/24 09:15 12/30/24 08:58 650 MG Amlodipine Besylate 10 mg DAILY PO 12/29/24 10:00 01/09/25 09:27 10 MG Tamsulosin HCl 0.4 mg QPM PO 12/29/24 18:00 01/08/25 17:30 0.4 MG Metoprolol Tartrate 5 mg Q4HPRN PRN IV 12/29/24 15:30 12/30/24 08:57 5 MG Albuterol 2.5 mg Q4HR NEB 12/30/24 14:00 01/09/25 09:54 2.5 MG Ipratropium [place] 0.5 mg Q4HR NEB 12/30/24 14:00 01/09/25 09:54 0.5 MG Piperacillin Sod/ Tazobactam Sod 100 ml @ 25 mls/hr Q8HR IV 12/31/24 22:00 UNV Atorvastatin Calcium 20 mg HS PO 01/01/25 22:00 01/08/25 21:29 20 MG Sodium Bicarbonate 650 mg TID PO 01/02/25 22:00 01/09/25 06:04 650 MG Diagnostic Test (Pha) 1 strip ACHS 01/05/25 11:30 01/09/25 11:34 1 STRIP Insulin Human Regular ACHS SC 01/05/25 11:30 01/09/25 11:39 3 UNITS Dextrose 50 ml UD PRN IV 01/05/25 09:45 Budesonide 0.5 mg BID NEB 01/06/25 22:00 01/09/25 07:29 0.5 MG Ceftriaxone Sodium 50 ml @ 100 mls/hr DAILY@09 IV 01/08/25 09:00 01/09/25 09:24 100 MLS/HR Meropenem 50 ml @ 17 mls/hr Q12HR IV 01/08/25 22:00 UNV Insulin Glargine 10 units QAM SC 01/09/25 07:00 01/09/25 06:14 10 UNITS Furosemide 40 mg BIDD IV 01/09/25 18:00 01/10/25 08:00 Physical Exam General Appearance: Cooperative. Well developed. Well nourished. NAD Head Exam: Normal inspection Neck Exam: Normal inspection. Non-tender. Normal alignment Pulmonary/Respiratory: Chest non-tender. Bilateral lung base crackles. Cardiovascular/Chest: Regular rate and rhythm. No murmurs. No JVD. Peripheral Pulses: 2+ Radial (R). 2+ Radial (L). 2+ Pedal (R). 2+ Pedal (L) Abdominal Exam: Normal bowel sounds. Soft. Nontender. No hepatospenomegaly. No masses Ankle Exam: Negative ankle edema Lower extremities: Negative lower extremity edema Neuro/Mental Status: A&O x4. Coherent Thoughts/Psych: Normal thought pattern. Appropriate mood and affect. Good judgement and insight Appearance: In no acute distress Skin Exam: Normal inspection. Normal color. Warm. Dry laboratory and microbiology Laboratory Tests 01/07/25 05:53 Test 01/07/25 05:53 Range/Units Serum Glucose 307 #H 74-106 mg/dL Problem List/Assessment/Plan Problems(with codes): (1) Sepsis (2) Hyperkalemia (3) Acute prerenal azotemia (4) Urethral stricture (5) Symptomatic anemia (6) UTI (urinary tract infection) (7) Weakness Problem List/Assessment/Plan Problem List/Assessment/Plan Sepsis in setting of pneumonia likely g negative Acute complicated UTI Hypoglycemia Ruled out PE Chronic diastolic heart failure History of CVA with residual left-sided weakness CKD stage 3 Diabetes mellitus type 2 Hypertension Hyperlipidemia Bed-bound Assessment: patient is a 44 year old male with a past medical history of cerebral palsy and related mental delay with bedridden diabetes and has a history of stroke with residual deficit CKD and stage 3 obstructive uropathy , diastolic CHF , hypertension , hyperlipidemia, hydronephrosis, anemia and was brought into the hospital with altered mental status and was recently admitted to [facility] a week ago with hyperglycemia and concerned as well of LISADNRO . Patient was treated for a UTI at that hospitalization and now presents with SOB and hypoglycemia with blood sugar in the 40s and patient is requiring 3-5 liters of nasal canula . Chest xray shows left lung opacities with concern for pneumonia and temp has ranged from 100.3- 98.3 and is tachycardic . overall tachycardia , fever and BP has been improving during this hospital course. Surgical history include ureteral dilation , review of systems . patient indorses SOB and cough , no sputum production , no diarrhea and no chest pains . Temperature of 97.1 currently with pulse 88 and BP 107/62 and setting 100% on 2 liters nasal canula. patient is altert and oriented and able to answer short questions , crackles in bases bilaterally . whitecount 13.7 that has come down from 20.7 on admission and platelet has come down to 148 from 210. Urine cultures shows deyanira , patient came in with a smith catheter , blood cultures is no growth to date , MRSA nares is negative . chest xray shows left lung hezy opacities which may represent pneumonia and doppler ultrasound showed no signs of DVT in lower extremities . plan would be to cover empirically for hospital aquired pneumonia due to recent [facility] visit , would forgo vancomycin due to negative MRSA nares , would continue Zosyn and start azithromycin for hospital aquired pneumonia coverage given the multifocal nature of the opacities , no need for fluconazole instead would recommend exchange of smith catheter if patient still requires smith . check procal serotinum level , check sputum culture that may need inducing . follow up on influenza, covid and RSV swab testing . 01/01: patient was unable to produce any sputum sample , unclear if patient is just unable to understand the request . still SOB however is setting 100% on 3 liters nasal canula . crackles in lungs bilaterally , mild edema in the legs. whitecount continues to come down . plan will be to continue Zosyn and azithromycin , acquire and induced sputum culture 01/02: sputum culture, growing normal respiratory syeda 01/03: hemoglobin 8.2 , whitecount 11.2 , having good urine output through catheter , responding to antibiotic therapy 01/05: respiratory cultures show normal respiratory syeda 01/06: appears to be recovering well from his pneumonia 01/07: suspect crackles in lungs and cough is more consistent with pulmonary antony a, chest xray shows cardiomegaly and diffuse bilateral interstitial infiltrated with mild listening compared to chest xray a day earlier . suspect CHF related Plan: - defer to primary team in regards to plan for diaeresis - stop Zosyn - continue ceftriaxone while inpatient and no need for antibiotics upon discharge -MRSA negative -blood culture(12/29/24): Negative, no growth after 48 hours of incubation -urine culture from 12/29/2024: Yeast, not Diana albicans, likely contamination. No need for antifungal. -pending respiratory culture, influenza and COVID swab. -reviewed chest x-ray which showed left-sided lung obesity. -procalcitonin -on oxygen via nasal cannula, currently at 3-5 L. -continue IV fluid, continue to monitor urine output. -rest of the management as per hospitalist. Plan discussed with: Other CC Plasma Assessment Blood Product Administration S: [id number] MOISE FRANKEL MD Jan 09, 2025 12:35
--- NOTE | 2025-01-09 12:40 | DVHPN2 ---
Consult Progress Note Date Seen: Jan 08, 2025 Subjective Patient reports: Other (breathing well on room air , tachycardia is improving and heart rate is under 100 ) Objective vital signs Vital Sign Date Time Temp Pulse Resp B/P (MAP) Pulse Ox O2 Delivery O2 Flow Rate FiO2 01/09/25 10:09 98 Room Air 01/09/25 10:09 0 21 01/09/25 10:02 96 18 01/09/25 09:27 168/90 01/09/25 09:00 97.9 97.9 Total Intake and Output 01/08/25 01/08/25 01/09/25 15:00 23:00 07:00 Intake Total 1030 ml 230 ml Output Total 550 ml 1050 ml Balance 480 ml -820 ml medications Current Medications Medications Dose Ordered Sig/Wai Route Start Time Stop Time Status Last Admin Dose Admin Ondansetron HCl 4 mg Q4HP PRN IV 12/29/24 09:15 Docusate Sodium 100 mg BIDPRN PRN PO 12/29/24 09:15 Zinc Sulfate 220 mg DAILY PO 12/29/24 10:00 01/09/25 09:27 220 MG Ascorbic Acid 500 mg BID PO 12/29/24 10:00 01/09/25 09:26 500 MG Multivitamins 1 tab DAILY PO 12/29/24 10:00 01/09/25 09:25 1 TAB Acetaminophen 650 mg Q6HP PRN PO 12/29/24 09:15 12/30/24 08:58 650 MG Amlodipine Besylate 10 mg DAILY PO 12/29/24 10:00 01/09/25 09:27 10 MG Tamsulosin HCl 0.4 mg QPM PO 12/29/24 18:00 01/08/25 17:30 0.4 MG Metoprolol Tartrate 5 mg Q4HPRN PRN IV 12/29/24 15:30 12/30/24 08:57 5 MG Albuterol 2.5 mg Q4HR NEB 12/30/24 14:00 01/09/25 09:54 2.5 MG Ipratropium [place] 0.5 mg Q4HR NEB 12/30/24 14:00 01/09/25 09:54 0.5 MG Piperacillin Sod/ Tazobactam Sod 100 ml @ 25 mls/hr Q8HR IV 12/31/24 22:00 UNV Atorvastatin Calcium 20 mg HS PO 01/01/25 22:00 01/08/25 21:29 20 MG Sodium Bicarbonate 650 mg TID PO 01/02/25 22:00 01/09/25 06:04 650 MG Diagnostic Test (Pha) 1 strip ACHS 01/05/25 11:30 01/09/25 11:34 1 STRIP Insulin Human Regular ACHS SC 01/05/25 11:30 01/09/25 11:39 3 UNITS Dextrose 50 ml UD PRN IV 01/05/25 09:45 Budesonide 0.5 mg BID NEB 01/06/25 22:00 01/09/25 07:29 0.5 MG Ceftriaxone Sodium 50 ml @ 100 mls/hr DAILY@09 IV 01/08/25 09:00 01/09/25 09:24 100 MLS/HR Meropenem 50 ml @ 17 mls/hr Q12HR IV 01/08/25 22:00 UNV Insulin Glargine 10 units QAM SC 01/09/25 07:00 01/09/25 06:14 10 UNITS Furosemide 40 mg BIDD IV 01/09/25 18:00 01/10/25 08:00 Physical Exam General Appearance: Cooperative. Well developed. Well nourished. NAD Head Exam: Normal inspection Neck Exam: Normal inspection. Non-tender. Normal alignment Pulmonary/Respiratory: Chest non-tender. Bilateral lung base crackles. Cardiovascular/Chest: Regular rate and rhythm. No murmurs. No JVD. Peripheral Pulses: 2+ Radial (R). 2+ Radial (L). 2+ Pedal (R). 2+ Pedal (L) Abdominal Exam: Normal bowel sounds. Soft. Nontender. No hepatospenomegaly. No masses Ankle Exam: Negative ankle edema Lower extremities: Negative lower extremity edema Neuro/Mental Status: A&O x4. Coherent Thoughts/Psych: Normal thought pattern. Appropriate mood and affect. Good judgement and insight Appearance: In no acute distress Skin Exam: Normal inspection. Normal color. Warm. Dry laboratory and microbiology Laboratory Tests 01/07/25 05:53 Test 01/07/25 05:53 Range/Units Serum Glucose 307 #H 74-106 mg/dL Problem List/Assessment/Plan Problems(with codes): (1) Sepsis (2) Hyperkalemia (3) Acute prerenal azotemia (4) Urethral stricture (5) Symptomatic anemia (6) UTI (urinary tract infection) (7) Weakness Problem List/Assessment/Plan Problem List/Assessment/Plan Sepsis in setting of pneumonia likely g negative Acute complicated UTI Hypoglycemia Ruled out PE Chronic diastolic heart failure History of CVA with residual left-sided weakness CKD stage 3 Diabetes mellitus type 2 Hypertension Hyperlipidemia Bed-bound Assessment: patient is a 44 year old male with a past medical history of cerebral palsy and related mental delay with bedridden diabetes and has a history of stroke with residual deficit CKD and stage 3 obstructive uropathy , diastolic CHF , hypertension , hyperlipidemia, hydronephrosis, anemia and was brought into the hospital with altered mental status and was recently admitted to [facility] a week ago with hyperglycemia and concerned as well of LISANDRO . Patient was treated for a UTI at that hospitalization and now presents with SOB and hypoglycemia with blood sugar in the 40s and patient is requiring 3-5 liters of nasal canula . Chest xray shows left lung opacities with concern for pneumonia and temp has ranged from 100.3- 98.3 and is tachycardic . overall tachycardia , fever and BP has been improving during this hospital course. Surgical history include ureteral dilation , review of systems . patient indorses SOB and cough , no sputum production , no diarrhea and no chest pains . Temperature of 97.1 currently with pulse 88 and BP 107/62 and setting 100% on 2 liters nasal canula. patient is altert and oriented and able to answer short questions , crackles in bases bilaterally . whitecount 13.7 that has come down from 20.7 on admission and platelet has come down to 148 from 210. Urine cultures shows deyanira , patient came in with a smith catheter , blood cultures is no growth to date , MRSA nares is negative . chest xray shows left lung hezy opacities which may represent pneumonia and doppler ultrasound showed no signs of DVT in lower extremities . plan would be to cover empirically for hospital aquired pneumonia due to recent [facility] visit , would forgo vancomycin due to negative MRSA nares , would continue Zosyn and start azithromycin for hospital aquired pneumonia coverage given the multifocal nature of the opacities , no need for fluconazole instead would recommend exchange of smith catheter if patient still requires smith . check procal serotinum level , check sputum culture that may need inducing . follow up on influenza, covid and RSV swab testing . 01/01: patient was unable to produce any sputum sample , unclear if patient is just unable to understand the request . still SOB however is setting 100% on 3 liters nasal canula . crackles in lungs bilaterally , mild edema in the legs. whitecount continues to come down . plan will be to continue Zosyn and azithromycin , acquire and induced sputum culture 01/02: sputum culture, growing normal respiratory syeda 01/03: hemoglobin 8.2 , whitecount 11.2 , having good urine output through catheter , responding to antibiotic therapy 01/05: respiratory cultures show normal respiratory syeda 01/06: appears to be recovering well from his pneumonia 01/07: suspect crackles in lungs and cough is more consistent with pulmonary edema, chest xray shows cardiomegaly and diffuse bilateral interstitial infiltrated with mild listening compared to chest xray a day earlier . suspect CHF related Plan: - defer to primary team in regards to plan for diaeresis - stop Zosyn - continue ceftriaxone while inpatient and no need for antibiotics upon discharge -MRSA negative -blood culture(12/29/24): Negative, no growth after 48 hours of incubation -urine culture from 12/29/2024: Yeast, not Diana albicans, likely contamination. No need for antifungal. -pending respiratory culture, influenza and COVID swab. -reviewed chest x-ray which showed left-sided lung obesity. -procalcitonin -on oxygen via nasal cannula, currently at 3-5 L. -continue IV fluid, continue to monitor urine output. -rest of the management as per hospitalist. Plan discussed with: Other CC Plasma Assessment Blood Product Administration S: [id number] MOISE FRANKEL MD Jan 09, 2025 12:40
--- NOTE | 2025-01-09 13:09 | DVHPN2 ---
Progress Note - Dictate Date Seen: Jan 09, 2025 Medical Necessity Reason Pt with a Central, PICC or Fol: Yes The following are medically ne: Smith Catheter Reason for smith catheter: Strict I&O Subjective Patient continues to have intermittent cough shortness of breath vital signs Vital Sign Date Time Temp Pulse Resp B/P (MAP) Pulse Ox O2 Delivery O2 Flow Rate FiO2 01/09/25 10:09 98 Room Air 01/09/25 10:09 0 21 01/09/25 10:02 96 18 01/09/25 09:27 168/90 01/09/25 09:00 97.9 97.9 Total Intake and Output 01/08/25 01/08/25 01/09/25 15:00 23:00 07:00 Intake Total 1030 ml 230 ml Output Total 550 ml 1050 ml Balance 480 ml -820 ml medications Current Medications Medications Dose Ordered Sig/Wai Route Start Time Stop Time Status Last Admin Dose Admin Ondansetron HCl 4 mg Q4HP PRN IV 12/29/24 09:15 Docusate Sodium 100 mg BIDPRN PRN PO 12/29/24 09:15 Zinc Sulfate 220 mg DAILY PO 12/29/24 10:00 01/09/25 09:27 220 MG Ascorbic Acid 500 mg BID PO 12/29/24 10:00 01/09/25 09:26 500 MG Multivitamins 1 tab DAILY PO 12/29/24 10:00 01/09/25 09:25 1 TAB Acetaminophen 650 mg Q6HP PRN PO 12/29/24 09:15 12/30/24 08:58 650 MG Amlodipine Besylate 10 mg DAILY PO 12/29/24 10:00 01/09/25 09:27 10 MG Tamsulosin HCl 0.4 mg QPM PO 12/29/24 18:00 01/08/25 17:30 0.4 MG Metoprolol Tartrate 5 mg Q4HPRN PRN IV 12/29/24 15:30 12/30/24 08:57 5 MG Albuterol 2.5 mg Q4HR NEB 12/30/24 14:00 01/09/25 09:54 2.5 MG Ipratropium [place] 0.5 mg Q4HR NEB 12/30/24 14:00 01/09/25 09:54 0.5 MG Piperacillin Sod/ Tazobactam Sod 100 ml @ 25 mls/hr Q8HR IV 12/31/24 22:00 UNV Atorvastatin Calcium 20 mg HS PO 01/01/25 22:00 01/08/25 21:29 20 MG Sodium Bicarbonate 650 mg TID PO 01/02/25 22:00 01/09/25 06:04 650 MG Diagnostic Test (Pha) 1 strip ACHS 01/05/25 11:30 01/09/25 11:34 1 STRIP Insulin Human Regular ACHS SC 01/05/25 11:30 01/09/25 11:39 3 UNITS Dextrose 50 ml UD PRN IV 01/05/25 09:45 Budesonide 0.5 mg BID NEB 01/06/25 22:00 01/09/25 07:29 0.5 MG Ceftriaxone Sodium 50 ml @ 100 mls/hr DAILY@09 IV 01/08/25 09:00 01/09/25 09:24 100 MLS/HR Meropenem 50 ml @ 17 mls/hr Q12HR IV 01/08/25 22:00 UNV Insulin Glargine 10 units QAM SC 01/09/25 07:00 01/09/25 06:14 10 UNITS Furosemide 40 mg BIDD IV 01/09/25 18:00 01/10/25 08:00 objective Gen: NAD HEENT: NC,AT Lungs: Bilateral rales Cardiac: Tachycardia, no murmur Abd: soft, no tenderness Ext: no edema + Smith laboratory and microbiology Laboratory Tests 01/07/25 05:53 Test 01/07/25 05:53 Range/Units Serum Glucose 307 #H 74-106 mg/dL Assessment/Plan Assessment: Acute kidney injury CKD III. (Baseline Cr: 1.6 mg/dl on May/2024) Pulmonary edema Acute hypoxic respiratory failure: Improving Sepsis secondary to pneumonia Acute on Chronic diastolic CHF Acute anemia DM HTN HLD h/o CVA with residual left sided weakness bed bound Plan: Lasix IV twice a day, labs are pending today Chest x-ray findings reviewed Continue Sodium bicarb 650 mg PO TID Bronchodilator therapy p.r.n. monitor H&H and transfuse if Hb < 7 g/dl Continue IV antibiotics Pulmonary consult daily BMP, and Mg Continue Flomax strict I&Os No indication for renal replacement therapy Stable from Nephrology perspective Plan discussed with: Patient CC Plasma Assessment Blood Product Administration S: [id number] GISELE ABREU MD Jan 09, 2025 13:09
[2025-01-09 13:57] LABS: Basophils # (auto) 0.2 10 ^3/uL (0-0.2); Basophils % (auto) 0.9 % (0.0-2.0); Eosinophils # (auto) 0 10 ^3/uL (0-0.8); Hematocrit 27.8 % (41.0-53.0); Hemoglobin 8.9 g/dL (13.5-17.5); Lymphocytes # (auto) 1.9 10 ^3/uL (0.4-5.4); Lymphocytes % (auto) 10.5 % (10.0-50.0); Mean Corpuscular Hemoglobin 28.7 pg (28.0-32.0); Mean Corpuscular Hgb Conc. 31.9 g/dL (32.0-36.0); Mean Corpuscular Volume 89.9 fL (80.0-100.0); Monocytes # (auto) 0.9 10 ^3/uL (0-1.3); Monocytes % (auto) 5.1 % (0.0-12.0); Neutrophils # (auto) 15.2 10 ^3/uL (1.6-8.6); Neutrophils % (auto) 83.5 % (37.0-80.0); Platelet Count (auto) 332 10^3/uL (140-450); Red Blood Cells 3.09 10^6/uL (4.5-5.90); Red Cell Distribution Width 17.9 % (11.8-14.3); White Blood Cell 18.2 10^3/uL (4.4-10.8)
[2025-01-09 14:18] LABS: Alanine Aminotransferase 33 U/L (7-40); Albumin 3.3 g/dL (3.2-4.8); Anion Gap 13 (5-15); Aspartate Aminotransferase 28 U/L (13-40); BUN/Creatinine Ratio 29.5 (10.0-20.0); Chloride 105 mmol/L (98-107); Potassium 3.5 mmol/L (3.5-5.1)
[2025-01-09 14:19] LABS: Alkaline Phosphatase 405 U/L (46-116); Bilirubin, Total < 0.2 mg/dL (0.2-1.0); Blood Urea Nitrogen 72 mg/dL (9-23); Calcium 8.7 mg/dL (8.7-10.4); Carbon Dioxide 18 mmol/L (20-31); Glucose 151 mg/dL (74-106); Sodium 136 mmol/L (136-145); Total Protein 6.1 g/dL (5.7-8.2)
--- NOTE | 2025-01-09 14:30 | DVHPN2 ---
Progress Note - Dictate Date Seen: Jan 09, 2025 Medical Necessity Reason Pt with a Central, PICC or Fol: Yes The following are medically ne: Smith Catheter Reason for smith catheter: Strict I&O vital signs Vital Sign Date Time Temp Pulse Resp B/P (MAP) Pulse Ox O2 Delivery O2 Flow Rate FiO2 01/09/25 10:09 98 Room Air 01/09/25 10:09 0 21 01/09/25 10:02 96 18 01/09/25 09:27 168/90 01/09/25 09:00 97.9 97.9 Total Intake and Output 01/08/25 01/08/25 01/09/25 15:00 23:00 07:00 Intake Total 1030 ml 230 ml Output Total 550 ml 1050 ml Balance 480 ml -820 ml medications Current Medications Medications Dose Ordered Sig/Wai Route Start Time Stop Time Status Last Admin Dose Admin Ondansetron HCl 4 mg Q4HP PRN IV 12/29/24 09:15 Docusate Sodium 100 mg BIDPRN PRN PO 12/29/24 09:15 Zinc Sulfate 220 mg DAILY PO 12/29/24 10:00 01/09/25 09:27 220 MG Ascorbic Acid 500 mg BID PO 12/29/24 10:00 01/09/25 09:26 500 MG Multivitamins 1 tab DAILY PO 12/29/24 10:00 01/09/25 09:25 1 TAB Acetaminophen 650 mg Q6HP PRN PO 12/29/24 09:15 12/30/24 08:58 650 MG Amlodipine Besylate 10 mg DAILY PO 12/29/24 10:00 01/09/25 09:27 10 MG Tamsulosin HCl 0.4 mg QPM PO 12/29/24 18:00 01/08/25 17:30 0.4 MG Metoprolol Tartrate 5 mg Q4HPRN PRN IV 12/29/24 15:30 12/30/24 08:57 5 MG Albuterol 2.5 mg Q4HR NEB 12/30/24 14:00 01/09/25 09:54 2.5 MG Ipratropium [place] 0.5 mg Q4HR NEB 12/30/24 14:00 01/09/25 09:54 0.5 MG Piperacillin Sod/ Tazobactam Sod 100 ml @ 25 mls/hr Q8HR IV 12/31/24 22:00 UNV Atorvastatin Calcium 20 mg HS PO 01/01/25 22:00 01/08/25 21:29 20 MG Sodium Bicarbonate 650 mg TID PO 01/02/25 22:00 01/09/25 06:04 650 MG Diagnostic Test (Pha) 1 strip ACHS 01/05/25 11:30 01/09/25 11:34 1 STRIP Insulin Human Regular ACHS SC 01/05/25 11:30 01/09/25 11:39 3 UNITS Dextrose 50 ml UD PRN IV 01/05/25 09:45 Budesonide 0.5 mg BID NEB 01/06/25 22:00 01/09/25 07:29 0.5 MG Ceftriaxone Sodium 50 ml @ 100 mls/hr DAILY@09 IV 01/08/25 09:00 01/09/25 09:24 100 MLS/HR Meropenem 50 ml @ 17 mls/hr Q12HR IV 01/08/25 22:00 UNV Insulin Glargine 10 units QAM SC 01/09/25 07:00 01/09/25 06:14 10 UNITS Furosemide 40 mg BIDD IV 01/09/25 18:00 01/10/25 08:00 laboratory and microbiology Laboratory Tests 01/09/25 13:28 Test 01/09/25 13:28 Range/Units Serum Glucose 151 #H 74-106 mg/dL Assessment/Plan Acute hypoxic respiratory failure Sepsis DM type II w/ hypoglycemia Urinary tract infection CVA with left-sided deficits Pneumonia, likely gram negative Cachexia, BMI 13.9 Events: none Rest of plan as noted below. Plan: Supplemental oxygen PRN Keep O2 sats above 92%. Head of bed elevation Aspiration precautions. NTS Continue bronchodilators. Steroids Complete antibiotic course Accu-Cheks for glycemic monitoring DVT prophylaxis. Plan discussed with: Patient CC Plasma Assessment Blood Product Administration S: [id number] SYD JACOBS MD Jan 09, 2025 14:30
--- NOTE | 2025-01-09 17:12 | DVHPN2 ---
Progress Note Date Seen: Jan 09, 2025 Medical Necessity Reason Pt with a Central, PICC or Fol: Yes The following are medically ne: Smith Catheter Reason for smith catheter: Strict I&O Subjective Review of Systems: CVS:Normal, RESPIRATORY:Normal, GI:Normal Objective vital signs Vital Sign Date Time Temp Pulse Resp B/P (MAP) Pulse Ox O2 Delivery O2 Flow Rate FiO2 01/09/25 15:21 96 18 100 01/09/25 13:00 97.0 146/88 (107) 97.0 01/09/25 10:09 Room Air 01/09/25 10:09 0 21 Total Intake and Output 01/08/25 01/08/25 01/09/25 15:00 23:00 07:00 Intake Total 1030 ml 230 ml Output Total 550 ml 1050 ml Balance 480 ml -820 ml medications Current Medications Medications Dose Ordered Sig/Wai Route Start Time Stop Time Status Last Admin Dose Admin Ondansetron HCl 4 mg Q4HP PRN IV 12/29/24 09:15 Docusate Sodium 100 mg BIDPRN PRN PO 12/29/24 09:15 Zinc Sulfate 220 mg DAILY PO 12/29/24 10:00 01/09/25 09:27 220 MG Ascorbic Acid 500 mg BID PO 12/29/24 10:00 01/09/25 09:26 500 MG Multivitamins 1 tab DAILY PO 12/29/24 10:00 01/09/25 09:25 1 TAB Acetaminophen 650 mg Q6HP PRN PO 12/29/24 09:15 12/30/24 08:58 650 MG Amlodipine Besylate 10 mg DAILY PO 12/29/24 10:00 01/09/25 09:27 10 MG Tamsulosin HCl 0.4 mg QPM PO 12/29/24 18:00 01/08/25 17:30 0.4 MG Metoprolol Tartrate 5 mg Q4HPRN PRN IV 12/29/24 15:30 12/30/24 08:57 5 MG Albuterol 2.5 mg Q4HR NEB 12/30/24 14:00 01/09/25 15:15 2.5 MG Ipratropium [place] 0.5 mg Q4HR NEB 12/30/24 14:00 01/09/25 15:15 0.5 MG Piperacillin Sod/ Tazobactam Sod 100 ml @ 25 mls/hr Q8HR IV 12/31/24 22:00 UNV Atorvastatin Calcium 20 mg HS PO 01/01/25 22:00 01/08/25 21:29 20 MG Sodium Bicarbonate 650 mg TID PO 01/02/25 22:00 01/09/25 14:39 650 MG Diagnostic Test (Pha) 1 strip ACHS 01/05/25 11:30 01/09/25 11:34 1 STRIP Insulin Human Regular ACHS SC 01/05/25 11:30 01/09/25 11:39 3 UNITS Dextrose 50 ml UD PRN IV 01/05/25 09:45 Budesonide 0.5 mg BID NEB 01/06/25 22:00 01/09/25 07:29 0.5 MG Meropenem 50 ml @ 17 mls/hr Q12HR IV 01/08/25 22:00 UNV Insulin Glargine 10 units QAM SC 01/09/25 07:00 01/09/25 06:14 10 UNITS Furosemide 40 mg BIDD IV 01/09/25 18:00 01/10/25 08:00 Cefepime HCl 50 ml @ 12.5 mls/hr Q12HR IV 01/09/25 22:00 UNV Examination: GENERAL:Normal, LUNGS:Abnormal (Diminished), CVS:Normal, ABDOMEN:Normal, SKIN:Normal, NEURO:Normal laboratory and microbiology Laboratory Tests 01/09/25 13:28 Test 01/09/25 13:28 Range/Units Serum Glucose 151 #H 74-106 mg/dL Microbiology Date/Time Source Procedure Growth Status 01/01/25 10:49 Sputum Gram Stain - Final Complete 01/01/25 10:49 Sputum Respiratory Culture - Final Complete 12/29/24 21:31 Nose MRSA Screen - Final Complete 12/29/24 09:50 Blood Blood Culture - Final NO GROWTH AFTER 5 DAYS OF INCUBATION. Complete 12/29/24 06:57 Voided Urine Urine Culture - Final Yeast, not Diana albicans Complete Labs and/or images reviewed: Labs reviewed by me, Image(s) reviewed by me Problem List/Assessment/Plan Problem List/Assessment/Plan 1. Sepsis Monitor, IV fluids, IV abx, cardiology consult 2. Hypoglycemia Monitor, hypoglycemia treatment 3. DM II Monitor, wound care consult 4. Pneumonia likely Gram-negative or Gram-positive Monitor, IV abx 5. Bed bound Monitor 6. Acute cystitis w/o hematuria Monitor, IV abx 7. Hx of CVA with residual deficits Monitor 8. CKD3b Monitor, nephrology consult 9. Acute hypoxic respiratory failure related to pneumonia Monitor, med-neb treatments, pulmonary consult, IV antibiotics Assessment/Plan Subjective Patient is awake and alert. Objective . Patient was admitted for sepsis related to complicated UTI with resolved metabolic encephalopathy and pneumonia. Patient has underlying CKD stage III. Patient's creatinine level has been stable. Blood sugar today has improved is down to 300s. We will continue to hold IV steroids. Patient has leukocytosis with WBCs of 18.2 likely secondary to IV steroids. Chest x-ray shows cardiomegaly and diffuse bilateral interstitial and alveolar infiltrates with mild worsening. IV antibiotics were escalated to cefepime q.12. We will repeat labs and x-ray tomorrow Plan ID recommendations appreciated. Repeat chest x-ray in a.m., repeat labs escalate antibiotics to cefepime q.12 discharge planning. Plan discussed with: Patient My Orders My Orders Orders - ASIYA JACQUES Procedure Category Date Status Time Insulin Lantus PHA 01/09/25 In Process (Glargine) (Lantus) 07:00 Chest Xray 1 View XY 01/09/25 Resulted 10:44 Cefepime 1gm/ 50ml PHA 01/09/25 Logged (Maxipime 1gm/50ml) 22:00 Complete Blood Count LAB 01/10/25 Verified 05:00 Basic Metabolic Panel LAB 01/10/25 Verified 05:00 Magnesium LAB 01/10/25 Verified 05:00 Date of Service: Jan 09, 2025 Billing Provider: MARIBEL WHALEN MD Common Visit Codes: [id number] INP/OBS CARE (MOD) CC Plasma Assessment Blood Product Administration S: [id number] ASIYA JACQUES Jan 09, 2025 17:12
[2025-01-09] MEDS: FUROSEMIDE 40 MG/4 ML VIAL IV SCH (17:22)
[2025-01-09] MEDS: CEFEPIME 1GM/ 50ML 50 ML IV SCH (22:18)
[2025-01-10] VITALS (20 sets, daily range): BP systolic 116–140; BP diastolic 77–84; PULSE 87–95; RESP 16–22; TEMP 97.1–98.4; O2SAT 96–100
--- NOTE | 2025-01-10 07:55 | DVHPN2 ---
Progress Note - Dictate Date Seen: Jan 10, 2025 Medical Necessity Reason Pt with a Central, PICC or Fol: Yes The following are medically ne: Smith Catheter Reason for smith catheter: Strict I&O vital signs Vital Sign Date Time Temp Pulse Resp B/P (MAP) Pulse Ox O2 Delivery O2 Flow Rate FiO2 01/10/25 06:28 93 16 100 01/10/25 06:22 Room Air* 0 21 01/10/25 05:57 133/81 01/10/25 05:00 98.4 98.4 Total Intake and Output 01/09/25 01/09/25 01/10/25 15:00 23:00 07:00 Intake Total 50 ml 480 ml 500 ml Output Total 425 ml 600 ml Balance 50 ml 55 ml -100 ml medications Current Medications Medications Dose Ordered Sig/Wai Route Start Time Stop Time Status Last Admin Dose Admin Ondansetron HCl 4 mg Q4HP PRN IV 12/29/24 09:15 Docusate Sodium 100 mg BIDPRN PRN PO 12/29/24 09:15 Zinc Sulfate 220 mg DAILY PO 12/29/24 10:00 01/09/25 09:27 220 MG Ascorbic Acid 500 mg BID PO 12/29/24 10:00 01/09/25 22:20 500 MG Multivitamins 1 tab DAILY PO 12/29/24 10:00 01/09/25 09:25 1 TAB Acetaminophen 650 mg Q6HP PRN PO 12/29/24 09:15 12/30/24 08:58 650 MG Amlodipine Besylate 10 mg DAILY PO 12/29/24 10:00 01/09/25 09:27 10 MG Tamsulosin HCl 0.4 mg QPM PO 12/29/24 18:00 01/09/25 17:22 0.4 MG Metoprolol Tartrate 5 mg Q4HPRN PRN IV 12/29/24 15:30 12/30/24 08:57 5 MG Albuterol 2.5 mg Q4HR NEB 12/30/24 14:00 01/10/25 06:22 2.5 MG Ipratropium [place] 0.5 mg Q4HR NEB 12/30/24 14:00 01/10/25 06:22 0.5 MG Piperacillin Sod/ Tazobactam Sod 100 ml @ 25 mls/hr Q8HR IV 12/31/24 22:00 UNV Atorvastatin Calcium 20 mg HS PO 01/01/25 22:00 01/09/25 22:20 20 MG Sodium Bicarbonate 650 mg TID PO 01/02/25 22:00 01/10/25 05:32 650 MG Diagnostic Test (Pha) 1 strip ACHS 01/05/25 11:30 01/10/25 06:05 1 STRIP Insulin Human Regular ACHS SC 01/05/25 11:30 01/10/25 06:06 4 UNITS Dextrose 50 ml UD PRN IV 01/05/25 09:45 Budesonide 0.5 mg BID NEB 01/06/25 22:00 01/09/25 17:44 0.5 MG Meropenem 50 ml @ 17 mls/hr Q12HR IV 01/08/25 22:00 UNV Insulin Glargine 10 units QAM SC 01/09/25 07:00 01/10/25 06:13 10 UNITS Furosemide 40 mg BIDD IV 01/09/25 18:00 01/10/25 08:00 01/10/25 05:57 40 MG Cefepime HCl 50 ml @ 12.5 mls/hr Q12HR IV 01/09/25 22:00 01/09/25 22:18 12.5 MLS/HR laboratory and microbiology Laboratory Tests 01/09/25 13:28 Test 01/09/25 13:28 Range/Units Serum Glucose 151 #H 74-106 mg/dL Assessment/Plan Subjective Seen and examined at the bedside within telemetry. Maintaining sinus rhythm upon telemetry review. Hemodynamics remain stable. Chart reviewed. Being followed by Nephrology/ID/Pulmonary ASSESSMENT: This is a 44-year old male known outside to our practice who initially presented for altered mental status found to be hypoglycemic with initial serum glucose level of 44 which later improved status post Dextrose administration. It is of note, patient is on Glipizide outpatient which could have attributed to the underlying hypoglycemia. Patient was also found tachycardic and febrile with highest documented temperature of 101.4 in the setting of sepsis from underlying pneumonia with superimposing urinary tract infection as initial WBC count was found elevated at 16.5 with peak lactic acid level of 2.7. Initial creatinine level found elevated at 2.15 with an initial potassium level of 5.5. Initial magnesium level found to be 1.7. TSH level was found normal at 4.37. D-Dimer did reveal elevation at 1.00. Patient does have underlying history of diastolic heart failure which patient underwent Echocardiogram (12/20/2024 [facility]) revealing TDS, EF 65%, stage I diastolic dysfunction, RV size and function is normal. mild LA dilation. Both AV and MV are opening adequately, mild TR with RVSP 26 mmhg. At present, BNP level was found elevated at 319 however chest imaging reveals no evidence for vascular congestion. 12-lead electrocardiogram upon arrival revealed sinus tachycardia at 109 bpm with no acute ischemic changes. Initial HS troponin level was found unremarkable at 16. As the patient presented with tachycardia and previously known history of diastolic heart failure, Cardiology services were involved for cardiac aspects of care. 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 Left Atrium: Left atrium is mildly dilated. No , No MS. Trace MR. Mild TR with RVSP 32 mmHg Echocardiogram: (06/09/2024 [facility]) revealed Left ventricle: Left ventricle is normal-sized with normal systolic function. LVEF was around 55%. There was no gross wall motion abnormality. Right ventricle was normal-sized with normal systolic function. Both atria were normal-sized. Aortic valve: Aortic valve is trileaflet. There was no aortic stenosis/insufficiency. There was no mitral regurgitation. There was trivial tricuspid regurgitation. Pulmonary valve was not well visualized. Right ventricular systolic pressure was around 30 mm Hg. There was no pericardial effusion Echocardiogram: (12/20/2024 [facility]) revealed TDS, EF 65%, stage I diastolic dysfunction, RV size and function is normal. mild LA dilation. Both AV and MV are opening adequately, mild TR with RVSP 26 mmhg. BLE Venous Duplex revealed IMPRESSION: 1. There is no sonographic evidence for DVT in the lower extremities. VQ Scan revealed IMPRESSION: 1. Normal perfusion. No evidence of pulmonary embolism. 2. Abnormal ventilation is likely due to multifocal airspace disease seen on recent radiographs. Echocardiogram reported: Left ventricle: Left ventricle was normal-sized with normal systolic function. LVEF was 64%. There was no gross wall motion abnormality. Right ventricle was normal-sized with normal systolic function. Both atria were normal-sized. Aortic valve was trileaflet. There was no aortic insufficiency/stenosis. There was trivial mitral/tricuspid regurgitation. There was no pulmonary valve insufficiency. Right ventricular systolic pressure was assessed at 34 mm Hg. There was no pericardial effusion. Symptomatic hypoglycemia, resolved Sepsis, in the setting of pneumonia/complicated UTI Sinus tachycardia, likely secondary to the above Abnormal D-Dimer, PE/DVT ruled out Chronic diastolic heart failure Baseline poor functional status Old history of previous CVA Residual left hemiparesis Chronic kidney disease Diabetes mellitus II Hyperlipidemia Hypertension Hyperkalemia Anemia, significant CARDIAC SUGGESTIONS FOR MANAGEMENT: Fluid volume management per Nephrology secondary to renal status Proceed with close observation for overt signs of fluid overload Proceed with strict intakes, outputs, and daily weights Proceed with close rate and rhythm surveillance Sustain Magnesium level greater than 2.0 Sustain Potassium level greater than 4.0 Follow up renal function and electrolytes Supplemental oxygen as warranted PRN Lopressor (IV) for rate control On IV antibiotic therapy Management of diabetes mellitus/hypoglycemia as per primary team Management of sepsis (pneumonia/UTI) as per primary team Management of chronic kidney disease as per Nephrology Management of co-morbidities per primary team Proceed with close hemodynamic surveillance Proceed with optimized blood pressure control Transfuse to sustain HGB level above 7.0 Management in telemetry Follow up retail client solutions consultant recommendations Will proceed to follow from a cardiac perspective Further recommendations per clinical progression All available diagnostic labs, EKG's, and images were personally reviewed Plan of care discussed with and agreed upon by patient / primary RN Prognosis: Guarded Thank you for allowing me to participate in the care of this patient. Further recommendations based on patients clinical course and progression, primary attending, and other consultants. Will continue to follow with primary attending. If you have any questions or concerns, please do not hesitate to contact me. A total of 55 minutes was spent reviewing the patient record, examining the patient, making a diagnostic and therapeutic plan, discussing this plan with medical personnel, following up on diagnostic studies and following the patient for clinical stability excluding any and all procedures. At least 50% of this time was spent in direct, [id number] Dietary Evaluation Review Comments: 1. Continue current diet regime Expected Outcomes/Goals: 1. Pt will continue >75% PO intake within 3-5 days Plan discussed with: Other (nurse) CC Plasma Assessment Blood Product Administration S: [id number] FAN HAMEED MD Jan 10, 2025 07:54
[2025-01-10 08:43] LABS: Basophils # (auto) 0.1 10 ^3/uL (0-0.2); Basophils % (auto) 0.3 % (0.0-2.0); Eosinophils # (auto) 0 10 ^3/uL (0-0.8); Hematocrit 28.2 % (41.0-53.0); Hemoglobin 9.1 g/dL (13.5-17.5); Lymphocytes # (auto) 2.6 10 ^3/uL (0.4-5.4); Lymphocytes % (auto) 15.1 % (10.0-50.0); Mean Corpuscular Hemoglobin 28.9 pg (28.0-32.0); Mean Corpuscular Hgb Conc. 32.2 g/dL (32.0-36.0); Mean Corpuscular Volume 89.6 fL (80.0-100.0); Monocytes # (auto) 1.4 10 ^3/uL (0-1.3); Monocytes % (auto) 8.5 % (0.0-12.0); Neutrophils % (auto) 76.1 % (37.0-80.0); Platelet Count (auto) 313 10^3/uL (140-450); Red Blood Cells 3.15 10^6/uL (4.5-5.90); Red Cell Distribution Width 17.6 % (11.8-14.3); White Blood Cell 17.1 10^3/uL (4.4-10.8)
[2025-01-10 08:54] LABS: Chloride 105 mmol/L (98-107); Potassium 3.8 mmol/L (3.5-5.1); Sodium 137 mmol/L (136-145)
[2025-01-10 08:55] LABS: Anion Gap 12 (5-15)
[2025-01-10 09:01] LABS: BUN/Creatinine Ratio 34.8 (10.0-20.0)
[2025-01-10 09:34] LABS: Calcium 8.4 mg/dL (8.7-10.4); Carbon Dioxide 20 mmol/L (20-31); Glucose 157 mg/dL (74-106); Magnesium 1.5 mg/dL (1.6-2.6)
[2025-01-10 09:36] LABS: Blood Urea Nitrogen 92 mg/dL (9-23)
--- NOTE | 2025-01-10 12:07 | DVH ---
CHEST RADIOGRAPH Indication: pma Technique: Single frontal view of the chest was obtained COMPARISON: XY CHEST XRAY 1 VIEW on DOS: 01/09/25, FINDINGS: Lines and Tubes: None Lungs: Slightly improving multifocal interstitial and alveolar opacities, most notably on the left. Pleura: No effusion. No pneumothorax. Cardiomediastinal contours: Enlarged Bones: Unremarkable IMPRESSION: 1. Slightly improving multifocal interstitial and alveolar opacities when compared to 01/09/2025.
--- NOTE | 2025-01-10 12:38 | DVHPN2 ---
Progress Note - Dictate Date Seen: Jan 10, 2025 Medical Necessity Reason Pt with a Central, PICC or Fol: Yes The following are medically ne: Smith Catheter Reason for smith catheter: Strict I&O vital signs Vital Sign Date Time Temp Pulse Resp B/P (MAP) Pulse Ox O2 Delivery O2 Flow Rate FiO2 01/10/25 10:01 90 16 100 01/10/25 09:53 Room Air 0.0 01/10/25 09:53 21 01/10/25 09:03 120/84 01/10/25 09:00 97.8 97.8 Total Intake and Output 01/09/25 01/09/25 01/10/25 15:00 23:00 07:00 Intake Total 50 ml 480 ml 500 ml Output Total 425 ml 600 ml Balance 50 ml 55 ml -100 ml medications Current Medications Medications Dose Ordered Sig/Wai Route Start Time Stop Time Status Last Admin Dose Admin Ondansetron HCl 4 mg Q4HP PRN IV 12/29/24 09:15 Docusate Sodium 100 mg BIDPRN PRN PO 12/29/24 09:15 Zinc Sulfate 220 mg DAILY PO 12/29/24 10:00 01/10/25 09:02 220 MG Ascorbic Acid 500 mg BID PO 12/29/24 10:00 01/10/25 09:02 500 MG Multivitamins 1 tab DAILY PO 12/29/24 10:00 01/10/25 09:02 1 TAB Acetaminophen 650 mg Q6HP PRN PO 12/29/24 09:15 12/30/24 08:58 650 MG Amlodipine Besylate 10 mg DAILY PO 12/29/24 10:00 01/10/25 09:03 10 MG Tamsulosin HCl 0.4 mg QPM PO 12/29/24 18:00 01/09/25 17:22 0.4 MG Metoprolol Tartrate 5 mg Q4HPRN PRN IV 12/29/24 15:30 12/30/24 08:57 5 MG Albuterol 2.5 mg Q4HR NEB 12/30/24 14:00 01/10/25 09:53 2.5 MG Ipratropium [place] 0.5 mg Q4HR NEB 12/30/24 14:00 01/10/25 09:53 0.5 MG Piperacillin Sod/ Tazobactam Sod 100 ml @ 25 mls/hr Q8HR IV 12/31/24 22:00 UNV Atorvastatin Calcium 20 mg HS PO 01/01/25 22:00 01/09/25 22:20 20 MG Sodium Bicarbonate 650 mg TID PO 01/02/25 22:00 01/10/25 05:32 650 MG Diagnostic Test (Pha) 1 strip ACHS 01/05/25 11:30 01/10/25 06:05 1 STRIP Insulin Human Regular ACHS SC 01/05/25 11:30 01/10/25 06:06 4 UNITS Dextrose 50 ml UD PRN IV 01/05/25 09:45 Budesonide 0.5 mg BID NEB 01/06/25 22:00 01/10/25 09:53 0.5 MG Meropenem 50 ml @ 17 mls/hr Q12HR IV 01/08/25 22:00 UNV Insulin Glargine 10 units QAM SC 01/09/25 07:00 01/10/25 06:13 10 UNITS Cefepime HCl 50 ml @ 12.5 mls/hr Q12HR IV 01/09/25 22:00 01/10/25 09:03 12.5 MLS/HR Magnesium Sulfate/ Dextrose 100 ml @ 100 mls/hr Q1HR IV 01/10/25 12:00 01/10/25 13:59 laboratory and microbiology Laboratory Tests 01/10/25 08:06 Test 01/10/25 08:06 Range/Units Serum Glucose 157 H 74-106 mg/dL Assessment/Plan Acute hypoxic respiratory failure Sepsis DM type II w/ hypoglycemia Urinary tract infection CVA with left-sided deficits Pneumonia, likely gram negative Cachexia, BMI 13.9 Events: none Rest of plan as noted below. Plan: Supplemental oxygen PRN Keep O2 sats above 92%. Head of bed elevation Aspiration precautions. NTS Continue bronchodilators. Steroids Complete antibiotic course Accu-Cheks for glycemic monitoring DVT prophylaxis. Dietary Evaluation Review Comments: 1. Continue current diet regime Expected Outcomes/Goals: 1. Pt will continue >75% PO intake within 3-5 days Plan discussed with: Patient CC Plasma Assessment Blood Product Administration S: [id number] SYD JACOBS MD Jan 10, 2025 12:38
[2025-01-10] MEDS: MAGNESIUM SULFATE 1GM/100ML 100 ML IV SCH (14:26)
--- NOTE | 2025-01-10 15:30 | DVHPN2 ---
Progress Note Date Seen: Jan 10, 2025 Medical Necessity Reason Pt with a Central, PICC or Fol: Yes The following are medically ne: Smith Catheter Reason for smith catheter: Strict I&O Subjective Patient reports: No new complaints Review of Systems: CVS:Normal, RESPIRATORY:Normal, GI:Normal Objective vital signs Vital Sign Date Time Temp Pulse Resp B/P (MAP) Pulse Ox O2 Delivery O2 Flow Rate FiO2 01/10/25 14:24 91 16 100 01/10/25 14:18 Room Air 0.0 01/10/25 14:18 21 01/10/25 13:00 98.1 140/84 (102) 98.1 Total Intake and Output 01/09/25 01/09/25 01/10/25 15:00 23:00 07:00 Intake Total 50 ml 480 ml 500 ml Output Total 425 ml 600 ml Balance 50 ml 55 ml -100 ml medications Current Medications Medications Dose Ordered Sig/Wai Route Start Time Stop Time Status Last Admin Dose Admin Ondansetron HCl 4 mg Q4HP PRN IV 12/29/24 09:15 Docusate Sodium 100 mg BIDPRN PRN PO 12/29/24 09:15 Zinc Sulfate 220 mg DAILY PO 12/29/24 10:00 01/10/25 09:02 220 MG Ascorbic Acid 500 mg BID PO 12/29/24 10:00 01/10/25 09:02 500 MG Multivitamins 1 tab DAILY PO 12/29/24 10:00 01/10/25 09:02 1 TAB Acetaminophen 650 mg Q6HP PRN PO 12/29/24 09:15 12/30/24 08:58 650 MG Amlodipine Besylate 10 mg DAILY PO 12/29/24 10:00 01/10/25 09:03 10 MG Tamsulosin HCl 0.4 mg QPM PO 12/29/24 18:00 01/09/25 17:22 0.4 MG Metoprolol Tartrate 5 mg Q4HPRN PRN IV 12/29/24 15:30 12/30/24 08:57 5 MG Albuterol 2.5 mg Q4HR NEB 12/30/24 14:00 01/10/25 14:18 2.5 MG Ipratropium [place] 0.5 mg Q4HR NEB 12/30/24 14:00 01/10/25 14:18 0.5 MG Piperacillin Sod/ Tazobactam Sod 100 ml @ 25 mls/hr Q8HR IV 12/31/24 22:00 UNV Atorvastatin Calcium 20 mg HS PO 01/01/25 22:00 01/09/25 22:20 20 MG Sodium Bicarbonate 650 mg TID PO 01/02/25 22:00 01/10/25 14:25 650 MG Diagnostic Test (Pha) 1 strip ACHS 01/05/25 11:30 01/10/25 12:37 1 STRIP Insulin Human Regular ACHS SC 01/05/25 11:30 01/10/25 12:39 2 UNITS Dextrose 50 ml UD PRN IV 01/05/25 09:45 Budesonide 0.5 mg BID NEB 01/06/25 22:00 01/10/25 09:53 0.5 MG Meropenem 50 ml @ 17 mls/hr Q12HR IV 01/08/25 22:00 UNV Insulin Glargine 10 units QAM SC 01/09/25 07:00 01/10/25 06:13 10 UNITS Cefepime HCl 50 ml @ 12.5 mls/hr Q12HR IV 01/09/25 22:00 01/10/25 09:03 12.5 MLS/HR Examination: GENERAL:Normal, LUNGS:Normal, CVS:Normal, ABDOMEN:Normal, SKIN:Normal, NEURO:Normal laboratory and microbiology Laboratory Tests 01/10/25 08:06 Test 01/10/25 08:06 Range/Units Serum Glucose 157 H 74-106 mg/dL Microbiology Date/Time Source Procedure Growth Status 01/01/25 10:49 Sputum Gram Stain - Final Complete 01/01/25 10:49 Sputum Respiratory Culture - Final Complete 12/29/24 21:31 Nose MRSA Screen - Final Complete 12/29/24 09:50 Blood Blood Culture - Final NO GROWTH AFTER 5 DAYS OF INCUBATION. Complete 12/29/24 06:57 Voided Urine Urine Culture - Final Yeast, not Diana albicans Complete Labs and/or images reviewed: Image(s) reviewed by me Problem List/Assessment/Plan Problem List/Assessment/Plan 1. Sepsis Monitor, IV fluids, IV abx, cardiology consult 2. Hypoglycemia Monitor, hypoglycemia treatment 3. DM II Monitor, wound care consult 4. Pneumonia likely Gram-negative or Gram-positive Monitor, IV abx 5. Bed bound Monitor 6. Acute cystitis w/o hematuria Monitor, IV abx 7. Hx of CVA with residual deficits Monitor 8. CKD3b Monitor, nephrology consult 9. Acute hypoxic respiratory failure related to pneumonia Monitor, med-neb treatments, pulmonary consult, IV antibiotics Assessment/Plan Subjective Patient is awake and alert. Objective . Patient was admitted for sepsis related to complicated UTI with resolved metabolic encephalopathy and pneumonia. Patient has underlying CKD stage III. Patient's creatinine level has been stable. Blood sugar today has improved is down to 300s. We will continue to hold IV steroids. Patient has leukocytosis with WBCs of 17.1 likely secondary to IV steroids. Chest x-ray shows cardiomegaly and diffuse bilateral interstitial and alveolar infiltrates with mild worsening. IV antibiotics were escalated to cefepime q.12. Chest x-ray did show improvement in pneumonia today. Case was discussed with next of kin, we will plan for possible discharge tomorrow Plan ID recommendations appreciated. Repeat chest x-ray in a.m., repeat labs escalate antibiotics to cefepime q.12 discharge planning Plan discussed with: Patient My Orders My Orders Orders - ASIYA JACQUES Procedure Category Date Status Time Cefepime 1gm/ 50ml PHA 01/09/25 In Process (Maxipime 1gm/50ml) 22:00 Chest Portable XY 01/10/25 Resulted 10:33 * Materials Intern CONS 01/10/25 Transmitted Consult Insulin Lantus PHA 01/10/25 Transmitted (Glargine) (Lantus) 22:00 Dietary Evaluation Review Comments: 1. Continue current diet regime Expected Outcomes/Goals: 1. Pt will continue >75% PO intake within 3-5 days Date of Service: Jan 10, 2025 Billing Provider: MARIBEL WHALEN MD Common Visit Codes: [id number] INP/OBS CARE (MOD) CC Plasma Assessment Blood Product Administration S: [id number] ASIYA JACQUES Jan 10, 2025 15:30
--- NOTE | 2025-01-10 15:56 | DVHPN2 ---
Progress Note - Dictate Date Seen: Jan 10, 2025 Medical Necessity Reason Pt with a Central, PICC or Fol: Yes The following are medically ne: Smith Catheter Reason for smith catheter: Strict I&O Subjective Patient endorses feeling better from the breathing perspective. vital signs Vital Sign Date Time Temp Pulse Resp B/P (MAP) Pulse Ox O2 Delivery O2 Flow Rate FiO2 01/10/25 14:24 91 16 100 01/10/25 14:18 Room Air 0.0 01/10/25 14:18 21 01/10/25 13:00 98.1 140/84 (102) 98.1 Total Intake and Output 01/09/25 01/09/25 01/10/25 15:00 23:00 07:00 Intake Total 50 ml 480 ml 500 ml Output Total 425 ml 600 ml Balance 50 ml 55 ml -100 ml medications Current Medications Medications Dose Ordered Sig/Wai Route Start Time Stop Time Status Last Admin Dose Admin Ondansetron HCl 4 mg Q4HP PRN IV 12/29/24 09:15 Docusate Sodium 100 mg BIDPRN PRN PO 12/29/24 09:15 Zinc Sulfate 220 mg DAILY PO 12/29/24 10:00 01/10/25 09:02 220 MG Ascorbic Acid 500 mg BID PO 12/29/24 10:00 01/10/25 09:02 500 MG Multivitamins 1 tab DAILY PO 12/29/24 10:00 01/10/25 09:02 1 TAB Acetaminophen 650 mg Q6HP PRN PO 12/29/24 09:15 12/30/24 08:58 650 MG Amlodipine Besylate 10 mg DAILY PO 12/29/24 10:00 01/10/25 09:03 10 MG Tamsulosin HCl 0.4 mg QPM PO 12/29/24 18:00 01/09/25 17:22 0.4 MG Metoprolol Tartrate 5 mg Q4HPRN PRN IV 12/29/24 15:30 12/30/24 08:57 5 MG Albuterol 2.5 mg Q4HR NEB 12/30/24 14:00 01/10/25 14:18 2.5 MG Ipratropium [place] 0.5 mg Q4HR NEB 12/30/24 14:00 01/10/25 14:18 0.5 MG Piperacillin Sod/ Tazobactam Sod 100 ml @ 25 mls/hr Q8HR IV 12/31/24 22:00 UNV Atorvastatin Calcium 20 mg HS PO 01/01/25 22:00 01/09/25 22:20 20 MG Sodium Bicarbonate 650 mg TID PO 01/02/25 22:00 01/10/25 14:25 650 MG Diagnostic Test (Pha) 1 strip ACHS 01/05/25 11:30 01/10/25 12:37 1 STRIP Insulin Human Regular ACHS SC 01/05/25 11:30 01/10/25 12:39 2 UNITS Dextrose 50 ml UD PRN IV 01/05/25 09:45 Budesonide 0.5 mg BID NEB 01/06/25 22:00 01/10/25 09:53 0.5 MG Meropenem 50 ml @ 17 mls/hr Q12HR IV 01/08/25 22:00 UNV Cefepime HCl 50 ml @ 12.5 mls/hr Q12HR IV 01/09/25 22:00 01/10/25 09:03 12.5 MLS/HR Insulin Glargine 10 units BID SC 01/10/25 22:00 UNV Furosemide 40 mg DAILY PO 01/11/25 10:00 UNV objective Gen: NAD HEENT: NC,AT Lungs: Bilateral rales Cardiac: Tachycardia, no murmur Abd: soft, no tenderness Ext: no edema + Smith laboratory and microbiology Laboratory Tests 01/10/25 08:06 Test 01/10/25 08:06 Range/Units Serum Glucose 157 H 74-106 mg/dL Assessment/Plan Assessment: Acute kidney injury CKD III. (Baseline Cr: 1.6 mg/dl on May/2024) Pulmonary edema Acute hypoxic respiratory failure: Improving Sepsis secondary to pneumonia Acute on Chronic diastolic CHF Acute anemia DM HTN HLD h/o CVA with residual left sided weakness bed bound Plan: Lasix IV, switched to p.o. for maintenance Chest x-ray findings reviewed Continue Sodium bicarb 650 mg PO TID Bronchodilator therapy p.r.n. monitor H&H and transfuse if Hb < 7 g/dl Continue IV antibiotics Pulmonary consult daily BMP, and Mg Continue Flomax strict I&Os No indication for renal replacement therapy Stable from Nephrology perspective Dietary Evaluation Review Comments: 1. Continue current diet regime Expected Outcomes/Goals: 1. Pt will continue >75% PO intake within 3-5 days Plan discussed with: Patient CC Plasma Assessment Blood Product Administration S: [id number] GISELE ABREU MD Jan 10, 2025 15:56
--- NOTE | 2025-01-10 20:07 | DVHPN2 ---
Consult Progress Note Date Seen: Jan 10, 2025 Subjective Patient reports: Other (gets confused , a bit lethargic , wheezing diffusely but improving ) Objective vital signs Vital Sign Date Time Temp Pulse Resp B/P (MAP) Pulse Ox O2 Delivery O2 Flow Rate FiO2 01/10/25 17:00 97.1 90 18 124/81 (95) 98 97.1 01/10/25 14:18 Room Air 0.0 01/10/25 14:18 21 Total Intake and Output 01/09/25 01/09/25 01/10/25 15:00 23:00 07:00 Intake Total 50 ml 480 ml 500 ml Output Total 425 ml 600 ml Balance 50 ml 55 ml -100 ml medications Current Medications Medications Dose Ordered Sig/Wai Route Start Time Stop Time Status Last Admin Dose Admin Ondansetron HCl 4 mg Q4HP PRN IV 12/29/24 09:15 Docusate Sodium 100 mg BIDPRN PRN PO 12/29/24 09:15 Zinc Sulfate 220 mg DAILY PO 12/29/24 10:00 01/10/25 09:02 220 MG Ascorbic Acid 500 mg BID PO 12/29/24 10:00 01/10/25 09:02 500 MG Multivitamins 1 tab DAILY PO 12/29/24 10:00 01/10/25 09:02 1 TAB Acetaminophen 650 mg Q6HP PRN PO 12/29/24 09:15 12/30/24 08:58 650 MG Amlodipine Besylate 10 mg DAILY PO 12/29/24 10:00 01/10/25 09:03 10 MG Tamsulosin HCl 0.4 mg QPM PO 12/29/24 18:00 01/10/25 17:14 0.4 MG Metoprolol Tartrate 5 mg Q4HPRN PRN IV 12/29/24 15:30 12/30/24 08:57 5 MG Albuterol 2.5 mg Q4HR NEB 12/30/24 14:00 01/10/25 18:57 2.5 MG Ipratropium [place] 0.5 mg Q4HR NEB 12/30/24 14:00 01/10/25 18:57 0.5 MG Piperacillin Sod/ Tazobactam Sod 100 ml @ 25 mls/hr Q8HR IV 12/31/24 22:00 UNV Atorvastatin Calcium 20 mg HS PO 01/01/25 22:00 01/09/25 22:20 20 MG Sodium Bicarbonate 650 mg TID PO 01/02/25 22:00 01/10/25 14:25 650 MG Diagnostic Test (Pha) 1 strip ACHS 01/05/25 11:30 01/10/25 17:08 1 STRIP Insulin Human Regular ACHS SC 01/05/25 11:30 01/10/25 17:14 3 UNITS Dextrose 50 ml UD PRN IV 01/05/25 09:45 Budesonide 0.5 mg BID NEB 01/06/25 22:00 01/10/25 18:57 0.5 MG Meropenem 50 ml @ 17 mls/hr Q12HR IV 01/08/25 22:00 UNV Insulin Glargine 10 units BID SC 01/10/25 22:00 Furosemide 40 mg DAILY PO 01/11/25 10:00 Cefepime HCl 50 ml @ 12.5 mls/hr Q24H IV 01/10/25 22:00 Physical Exam General Appearance: Cooperative. Well developed. Well nourished. NAD Head Exam: Normal inspection Neck Exam: Normal inspection. Non-tender. Normal alignment Pulmonary/Respiratory: Chest non-tender. Bilateral lung base crackles. Cardiovascular/Chest: Regular rate and rhythm. No murmurs. No JVD. Peripheral Pulses: 2+ Radial (R). 2+ Radial (L). 2+ Pedal (R). 2+ Pedal (L) Abdominal Exam: Normal bowel sounds. Soft. Nontender. No hepatospenomegaly. No masses Ankle Exam: Negative ankle edema Lower extremities: Negative lower extremity edema Neuro/Mental Status: A&O x4. Coherent Thoughts/Psych: Normal thought pattern. Appropriate mood and affect. Good judgement and insight Appearance: In no acute distress Skin Exam: Normal inspection. Normal color. Warm. Dry laboratory and microbiology Laboratory Tests 01/10/25 08:06 Test 01/10/25 08:06 Range/Units Serum Glucose 157 H 74-106 mg/dL Problem List/Assessment/Plan Problems(with codes): (1) Sepsis (2) Hyperkalemia (3) Acute prerenal azotemia (4) Urethral stricture (5) Symptomatic anemia (6) UTI (urinary tract infection) (7) Weakness (8) Hyperglycemia (9) Metabolic encephalopathy Problem List/Assessment/Plan Problem List/Assessment/Plan Sepsis in setting of pneumonia likely g negative Acute complicated UTI Hypoglycemia Ruled out PE Chronic diastolic heart failure History of CVA with residual left-sided weakness CKD stage 3 Diabetes mellitus type 2 Hypertension Hyperlipidemia Bed-bound Assessment: patient is a 44 year old male with a past medical history of cerebral palsy and related mental delay with bedridden diabetes and has a history of stroke with residual deficit CKD and stage 3 obstructive uropathy , diastolic CHF , hypertension , hyperlipidemia, hydronephrosis, anemia and was brought into the hospital with altered mental status and was recently admitted to [facility] a week ago with hyperglycemia and concerned as well of LISANDRO . Patient was treated for a UTI at that hospitalization and now presents with SOB and hypoglycemia with blood sugar in the 40s and patient is requiring 3-5 liters of nasal canula . Chest xray shows left lung opacities with concern for pneumonia and temp has ranged from 100.3- 98.3 and is tachycardic . overall tachycardia , fever and BP has been improving during this hospital course. Surgical history include ureteral dilation , review of systems . patient indorses SOB and cough , no sputum production , no diarrhea and no chest pains . Temperature of 97.1 currently with pulse 88 and BP 107/62 and setting 100% on 2 liters nasal canula. patient is altert and oriented and able to answer short questions , crackles in bases bilaterally . whitecount 13.7 that has come down from 20.7 on admission and platelet has come down to 148 from 210. Urine cultures shows deyanira , patient came in with a smith catheter , blood cultures is no growth to date , MRSA nares is negative . chest xray shows left lung hezy opacities which may represent pneumonia and doppler ultrasound showed no signs of DVT in lower extremities . plan would be to cover empirically for hospital aquired pneumonia due to recent [facility] visit , would forgo vancomycin due to negative MRSA nares , would continue Zosyn and start azithromycin for hospital aquired pneumonia coverage given the multifocal nature of the opacities , no need for fluconazole instead would recommend exchange of smith catheter if patient still requires smith . check procal serotinum level , check sputum culture that may need inducing . follow up on influenza, covid and RSV swab testing . 01/01: patient was unable to produce any sputum sample , unclear if patient is just unable to understand the request . still SOB however is setting 100% on 3 liters nasal canula . crackles in lungs bilaterally , mild edema in the legs. whitecount continues to come down . plan will be to continue Zosyn and azithromycin , acquire and induced sputum culture 01/02: sputum culture, growing normal respiratory syeda 01/03: hemoglobin 8.2 , whitecount 11.2 , having good urine output through catheter , responding to antibiotic therapy 01/05: respiratory cultures show normal respiratory syeda 01/06: appears to be recovering well from his pneumonia 01/07: suspect crackles in lungs and cough is more consistent with pulmonary edema, chest xray shows cardiomegaly and diffuse bilateral interstitial infiltrated with mild listening compared to chest xray a day earlier . suspect CHF related 01/09: chest xray suggestive of cardiomegaly and diffuse bilateral intersistial and aviolar infiltrates with mild worsening compared to xray preformed one day earlier , may be due to CHF or pneumonia , suspect these finding are more related to CHF and leukocytosis is more likely related to steroid use given in the last 2 days 01/10: whitecount is 17 , chest xray shows improved infiltrates, kidney function is worsen to 2.64 , BUN is 92 likely contributing to confusion , putting 340ccs of urine output Plan: - recommend checking sputum culture , if no growth would stop all antibiotics - sputum cultures should be induced given patients mental disabilities - defer to primary team in regards to plan for diaeresis - Continue Cefepime -MRSA negative -blood culture(12/29/24): Negative, no growth after 48 hours of incubation -urine culture from 12/29/2024: Yeast, not Diana albicans, likely contamination. No need for antifungal. -pending respiratory culture, influenza and COVID swab. -reviewed chest x-ray which showed left-sided lung obesity. -procalcitonin -on oxygen via nasal cannula, currently at 3-5 L. -continue IV fluid, continue to monitor urine output. -rest of the management as per hospitalist. Plan discussed with: Other Dietary Evaluation Review Comments: 1. Continue current diet regime Expected Outcomes/Goals: 1. Pt will continue >75% PO intake within 3-5 days CC Plasma Assessment Blood Product Administration S: [id number] MOISE FRANKEL MD Jan 10, 2025 20:07
--- NOTE | 2025-01-10 20:07 | DVHPN2 ---
Consult Progress Note Date Seen: Jan 09, 2025 Subjective Patient reports: Other (no tachycardia , setting well on room air , wheezing diffusely bilaterally in the lungs and was swithced to ceftriaxone in setting of tachycardia ) Objective vital signs Vital Sign Date Time Temp Pulse Resp B/P (MAP) Pulse Ox O2 Delivery O2 Flow Rate FiO2 01/10/25 17:00 97.1 90 18 124/81 (95) 98 97.1 01/10/25 14:18 Room Air 0.0 01/10/25 14:18 21 Total Intake and Output 01/09/25 01/09/25 01/10/25 15:00 23:00 07:00 Intake Total 50 ml 480 ml 500 ml Output Total 425 ml 600 ml Balance 50 ml 55 ml -100 ml medications Current Medications Medications Dose Ordered Sig/Wai Route Start Time Stop Time Status Last Admin Dose Admin Ondansetron HCl 4 mg Q4HP PRN IV 12/29/24 09:15 Docusate Sodium 100 mg BIDPRN PRN PO 12/29/24 09:15 Zinc Sulfate 220 mg DAILY PO 12/29/24 10:00 01/10/25 09:02 220 MG Ascorbic Acid 500 mg BID PO 12/29/24 10:00 01/10/25 09:02 500 MG Multivitamins 1 tab DAILY PO 12/29/24 10:00 01/10/25 09:02 1 TAB Acetaminophen 650 mg Q6HP PRN PO 12/29/24 09:15 12/30/24 08:58 650 MG Amlodipine Besylate 10 mg DAILY PO 12/29/24 10:00 01/10/25 09:03 10 MG Tamsulosin HCl 0.4 mg QPM PO 12/29/24 18:00 01/10/25 17:14 0.4 MG Metoprolol Tartrate 5 mg Q4HPRN PRN IV 12/29/24 15:30 12/30/24 08:57 5 MG Albuterol 2.5 mg Q4HR NEB 12/30/24 14:00 01/10/25 18:57 2.5 MG Ipratropium [place] 0.5 mg Q4HR NEB 12/30/24 14:00 01/10/25 18:57 0.5 MG Piperacillin Sod/ Tazobactam Sod 100 ml @ 25 mls/hr Q8HR IV 12/31/24 22:00 UNV Atorvastatin Calcium 20 mg HS PO 01/01/25 22:00 01/09/25 22:20 20 MG Sodium Bicarbonate 650 mg TID PO 01/02/25 22:00 01/10/25 14:25 650 MG Diagnostic Test (Pha) 1 strip ACHS 01/05/25 11:30 01/10/25 17:08 1 STRIP Insulin Human Regular ACHS SC 01/05/25 11:30 01/10/25 17:14 3 UNITS Dextrose 50 ml UD PRN IV 01/05/25 09:45 Budesonide 0.5 mg BID NEB 01/06/25 22:00 01/10/25 18:57 0.5 MG Meropenem 50 ml @ 17 mls/hr Q12HR IV 01/08/25 22:00 UNV Insulin Glargine 10 units BID SC 01/10/25 22:00 Furosemide 40 mg DAILY PO 01/11/25 10:00 Cefepime HCl 50 ml @ 12.5 mls/hr Q24H IV 01/10/25 22:00 Physical Exam General Appearance: Cooperative. Well developed. Well nourished. NAD Head Exam: Normal inspection Neck Exam: Normal inspection. Non-tender. Normal alignment Pulmonary/Respiratory: Chest non-tender. Bilateral lung base crackles. Cardiovascular/Chest: Regular rate and rhythm. No murmurs. No JVD. Peripheral Pulses: 2+ Radial (R). 2+ Radial (L). 2+ Pedal (R). 2+ Pedal (L) Abdominal Exam: Normal bowel sounds. Soft. Nontender. No hepatospenomegaly. No masses Ankle Exam: Negative ankle edema Lower extremities: Negative lower extremity edema Neuro/Mental Status: A&O x4. Coherent Thoughts/Psych: Normal thought pattern. Appropriate mood and affect. Good judgement and insight Appearance: In no acute distress Skin Exam: Normal inspection. Normal color. Warm. Dry laboratory and microbiology Laboratory Tests 01/10/25 08:06 Test 01/10/25 08:06 Range/Units Serum Glucose 157 H 74-106 mg/dL Problem List/Assessment/Plan Problems(with codes): (1) Sepsis (2) Hyperkalemia (3) Acute prerenal azotemia (4) Urethral stricture (5) Symptomatic anemia (6) UTI (urinary tract infection) (7) Weakness (8) Hyperglycemia Problem List/Assessment/Plan Problem List/Assessment/Plan Sepsis in setting of pneumonia likely g negative Acute complicated UTI Hypoglycemia Ruled out PE Chronic diastolic heart failure History of CVA with residual left-sided weakness CKD stage 3 Diabetes mellitus type 2 Hypertension Hyperlipidemia Bed-bound Assessment: patient is a 44 year old male with a past medical history of cerebral palsy and related mental delay with bedridden diabetes and has a history of stroke with residual deficit CKD and stage 3 obstructive uropathy , diastolic CHF , hypertension , hyperlipidemia, hydronephrosis, anemia and was brought into the hospital with altered mental status and was recently admitted to [facility] a week ago with hyperglycemia and concerned as well of LISANDRO . Patient was treated for a UTI at that hospitalization and now presents with SOB and hypoglycemia with blood sugar in the 40s and patient is requiring 3-5 liters of nasal canula . Chest xray shows left lung opacities with concern for pneumonia and temp has ranged from 100.3- 98.3 and is tachycardic . overall tachycardia , fever and BP has been improving during this hospital course. Surgical history include ureteral dilation , review of systems . patient indorses SOB and cough , no sputum production , no diarrhea and no chest pains . Temperature of 97.1 currently with pulse 88 and BP 107/62 and setting 100% on 2 liters nasal canula. patient is altert and oriented and able to answer short questions , crackles in bases bilaterally . whitecount 13.7 that has come down from 20.7 on admission and platelet has come down to 148 from 210. Urine cultures shows deyanira , patient came in with a smith catheter , blood cultures is no growth to date , MRSA nares is negative . chest xray shows left lung hezy opacities which may represent pneumonia and doppler ultrasound showed no signs of DVT in lower extremities . plan would be to cover empirically for hospital aquired pneumonia due to recent [facility] visit , would forgo vancomycin due to negative MRSA nares , would continue Zosyn and start azithromycin for hospital aquired pneumonia coverage given the multifocal nature of the opacities , no need for fluconazole instead would recommend exchange of smith catheter if patient still requires smith . check procal serotinum level , check sputum culture that may need inducing . follow up on influenza, covid and RSV swab testing . 01/01: patient was unable to produce any sputum sample , unclear if patient is just unable to understand the request . still SOB however is setting 100% on 3 liters nasal canula . crackles in lungs bilaterally , mild edema in the legs. whitecount continues to come down . plan will be to continue Zosyn and azithromycin , acquire and induced sputum culture 01/02: sputum culture, growing normal respiratory syeda 01/03: hemoglobin 8.2 , whitecount 11.2 , having good urine output through catheter , responding to antibiotic therapy 01/05: respiratory cultures show normal respiratory syeda 01/06: appears to be recovering well from his pneumonia 01/07: suspect crackles in lungs and cough is more consistent with pulmonary edema, chest xray shows cardiomegaly and diffuse bilateral interstitial infiltrated with mild listening compared to chest xray a day earlier . suspect CHF related 01/09: chest xray suggestive of cardiomegaly and diffuse bilateral intersistial and aviolar infiltrates with mild worsening compared to xray preformed one day earlier , may be due to CHF or pneumonia , suspect these finding are more related to CHF and leukocytosis is more likely related to steroid use given in the last 2 days Plan: - recommend checking sputum culture , if no growth would stop all antibiotics - sputum cultures should be induced given patients mental disabilities - defer to primary team in regards to plan for diaeresis - Continue Cefepime -MRSA negative -blood culture(12/29/24): Negative, no growth after 48 hours of incubation -urine culture from 12/29/2024: Yeast, not Diana albicans, likely contamination. No need for antifungal. -pending respiratory culture, influenza and COVID swab. -reviewed chest x-ray which showed left-sided lung obesity. -procalcitonin -on oxygen via nasal cannula, currently at 3-5 L. -continue IV fluid, continue to monitor urine output. -rest of the management as per hospitalist. Plan discussed with: Other Dietary Evaluation Review Comments: 1. Continue current diet regime Expected Outcomes/Goals: 1. Pt will continue >75% PO intake within 3-5 days CC Plasma Assessment Blood Product Administration S: [id number] MOISE FRANKEL MD Jan 10, 2025 20:07
[2025-01-10] MEDS: INSULIN LANTUS (GLARGINE) 1 /0.01ml (100units/ml) SC SCH (21:40)
[2025-01-10] MEDS: CEFEPIME 1GM/ 50ML 50 ML IV SCH (21:50)
[2025-01-11] VITALS (12 sets, daily range): BP systolic 126–131; BP diastolic 77–84; PULSE 88–99; RESP 16–20; TEMP 97.3–97.9; O2SAT 96–100
[2025-01-11 06:40] LABS: Basophils # (auto) 0.1 10 ^3/uL (0-0.2); Basophils % (auto) 0.4 % (0.0-2.0); Eosinophils # (auto) 0 10 ^3/uL (0-0.8); Eosinophils % (auto) 0.1 % (0.0-7.0); Hemoglobin 8.8 g/dL (13.5-17.5); Lymphocytes # (auto) 2.5 10 ^3/uL (0.4-5.4); Mean Corpuscular Hemoglobin 29.5 pg (28.0-32.0); Mean Corpuscular Hgb Conc. 32.5 g/dL (32.0-36.0); Mean Corpuscular Volume 90.7 fL (80.0-100.0); Monocytes # (auto) 1.4 10 ^3/uL (0-1.3); Monocytes % (auto) 8.7 % (0.0-12.0); Neutrophils # (auto) 11.6 10 ^3/uL (1.6-8.6); Neutrophils % (auto) 74.8 % (37.0-80.0); Platelet Count (auto) 293 10^3/uL (140-450); Red Blood Cells 2.98 10^6/uL (4.5-5.90); Red Cell Distribution Width 17.9 % (11.8-14.3); White Blood Cell 15.5 10^3/uL (4.4-10.8)
--- NOTE | 2025-01-11 06:46 | DVH ---
EXAM: XR Chest, 1 View CLINICAL INDICATION: pna TECHNIQUE: Frontal view of the chest. COMPARISON: XY CHEST PORTABLE on DOS: 01/10/25, XY CHEST XRAY 1 VIEW on DOS: 01/09/25, XY CHEST XRAY 1 VIEW on DOS: 01/08/25, XY CHEST PORTABLE on DOS: 01/07/25, XY CHEST XRAY 1 VIEW on DOS: 01/06/25 FINDINGS: LUNGS AND PLEURAL SPACES: See below. HEART: Cardiomegaly with pulmonary congestion and edema. Superimposed pneumonia cannot be excluded. MEDIASTINUM: Unremarkable. Normal mediastinal contour. BONES/JOINTS: Unremarkable. No acute fracture. OTHER FINDINGS: . None. . .. IMPRESSION: Cardiomegaly with pulmonary congestion and edema. Superimposed pneumonia cannot be excluded.
[2025-01-11 07:11] LABS: Anion Gap 12 (5-15); Magnesium 2.1 mg/dL (1.6-2.6); Potassium 3.9 mmol/L (3.5-5.1); Sodium 141 mmol/L (136-145)
[2025-01-11 07:12] LABS: Aspartate Aminotransferase 39 U/L (13-40)
[2025-01-11 07:17] LABS: Chloride 111 mmol/L (98-107)
[2025-01-11 07:18] LABS: Alanine Aminotransferase 60 U/L (7-40); Alkaline Phosphatase 432 U/L (46-116); Bilirubin, Total 0.2 mg/dL (0.2-1.0); Calcium 8.5 mg/dL (8.7-10.4); Carbon Dioxide 18 mmol/L (20-31); Glucose 128 mg/dL (74-106); Total Protein 5.4 g/dL (5.7-8.2)
[2025-01-11 07:20] LABS: Blood Urea Nitrogen 94 mg/dL (9-23)
--- NOTE | 2025-01-11 08:14 | DVHPN2 ---
Progress Note - Dictate Date Seen: Jan 11, 2025 Medical Necessity Reason Pt with a Central, PICC or Fol: Yes The following are medically ne: Smith Catheter Reason for smith catheter: Strict I&O vital signs Vital Sign Date Time Temp Pulse Resp B/P (MAP) Pulse Ox O2 Delivery O2 Flow Rate FiO2 01/11/25 06:05 90 16 100 01/11/25 05:55 Room Air* 0 21 01/11/25 05:00 97.5 126/77 (93) 97.5 Total Intake and Output 01/10/25 01/10/25 01/11/25 15:00 23:00 07:00 Intake Total 50 ml 650 ml 300 ml Output Total 600 ml 525 ml 500 ml Balance -550 ml 125 ml -200 ml medications Current Medications Medications Dose Ordered Sig/Wai Route Start Time Stop Time Status Last Admin Dose Admin Ondansetron HCl 4 mg Q4HP PRN IV 12/29/24 09:15 Docusate Sodium 100 mg BIDPRN PRN PO 12/29/24 09:15 Zinc Sulfate 220 mg DAILY PO 12/29/24 10:00 01/10/25 09:02 220 MG Ascorbic Acid 500 mg BID PO 12/29/24 10:00 01/10/25 21:22 500 MG Multivitamins 1 tab DAILY PO 12/29/24 10:00 01/10/25 09:02 1 TAB Acetaminophen 650 mg Q6HP PRN PO 12/29/24 09:15 12/30/24 08:58 650 MG Amlodipine Besylate 10 mg DAILY PO 12/29/24 10:00 01/10/25 09:03 10 MG Tamsulosin HCl 0.4 mg QPM PO 12/29/24 18:00 01/10/25 17:14 0.4 MG Metoprolol Tartrate 5 mg Q4HPRN PRN IV 12/29/24 15:30 12/30/24 08:57 5 MG Albuterol 2.5 mg Q4HR NEB 12/30/24 14:00 01/11/25 05:55 2.5 MG Ipratropium [place] 0.5 mg Q4HR NEB 12/30/24 14:00 01/11/25 05:54 0.5 MG Piperacillin Sod/ Tazobactam Sod 100 ml @ 25 mls/hr Q8HR IV 12/31/24 22:00 UNV Atorvastatin Calcium 20 mg HS PO 01/01/25 22:00 01/10/25 21:22 20 MG Sodium Bicarbonate 650 mg TID PO 01/02/25 22:00 01/11/25 06:31 650 MG Diagnostic Test (Pha) 1 strip ACHS 01/05/25 11:30 01/11/25 06:31 1 STRIP Insulin Human Regular ACHS SC 01/05/25 11:30 01/10/25 21:39 3 UNITS Dextrose 50 ml UD PRN IV 01/05/25 09:45 Budesonide 0.5 mg BID NEB 01/06/25 22:00 01/11/25 05:54 0.5 MG Meropenem 50 ml @ 17 mls/hr Q12HR IV 01/08/25 22:00 UNV Insulin Glargine 10 units BID SC 01/10/25 22:00 01/10/25 21:40 10 UNITS Furosemide 40 mg DAILY PO 01/11/25 10:00 Cefepime HCl 50 ml @ 12.5 mls/hr Q24H IV 01/10/25 22:00 01/10/25 21:50 12.5 MLS/HR laboratory and microbiology Laboratory Tests 01/11/25 05:52 Test 01/11/25 05:52 Range/Units Serum Glucose 128 H 74-106 mg/dL Assessment/Plan Subjective Seen and examined at the bedside within telemetry. Maintaining sinus rhythm upon telemetry review. Hemodynamics remain stable. Chart reviewed. Being followed by Nephrology/ID/Pulmonary ASSESSMENT: This is a 44-year old male known outside to our practice who initially presented for altered mental status found to be hypoglycemic with initial serum glucose level of 44 which later improved status post Dextrose administration. It is of note, patient is on Glipizide outpatient which could have attributed to the underlying hypoglycemia. Patient was also found tachycardic and febrile with highest documented temperature of 101.4 in the setting of sepsis from underlying pneumonia with superimposing urinary tract infection as initial WBC count was found elevated at 16.5 with peak lactic acid level of 2.7. Initial creatinine level found elevated at 2.15 with an initial potassium level of 5.5. Initial magnesium level found to be 1.7. TSH level was found normal at 4.37. D-Dimer did reveal elevation at 1.00. Patient does have underlying history of diastolic heart failure which patient underwent Echocardiogram (12/20/2024 [facility]) revealing TDS, EF 65%, stage I diastolic dysfunction, RV size and function is normal. mild LA dilation. Both AV and MV are opening adequately, mild TR with RVSP 26 mmhg. At present, BNP level was found elevated at 319 however chest imaging reveals no evidence for vascular congestion. 12-lead electrocardiogram upon arrival revealed sinus tachycardia at 109 bpm with no acute ischemic changes. Initial HS troponin level was found unremarkable at 16. As the patient presented with tachycardia and previously known history of diastolic heart failure, Cardiology services were involved for cardiac aspects of care. 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 Left Atrium: Left atrium is mildly dilated. No , No MS. Trace MR. Mild TR with RVSP 32 mmHg Echocardiogram: (06/09/2024 [facility]) revealed Left ventricle: Left ventricle is normal-sized with normal systolic function. LVEF was around 55%. There was no gross wall motion abnormality. Right ventricle was normal-sized with normal systolic function. Both atria were normal-sized. Aortic valve: Aortic valve is trileaflet. There was no aortic stenosis/insufficiency. There was no mitral regurgitation. There was trivial tricuspid regurgitation. Pulmonary valve was not well visualized. Right ventricular systolic pressure was around 30 mm Hg. There was no pericardial effusion Echocardiogram: (12/20/2024 [facility]) revealed TDS, EF 65%, stage I diastolic dysfunction, RV size and function is normal. mild LA dilation. Both AV and MV are opening adequately, mild TR with RVSP 26 mmhg. BLE Venous Duplex revealed IMPRESSION: 1. There is no sonographic evidence for DVT in the lower extremities. VQ Scan revealed IMPRESSION: 1. Normal perfusion. No evidence of pulmonary embolism. 2. Abnormal ventilation is likely due to multifocal airspace disease seen on recent radiographs. Echocardiogram reported: Left ventricle: Left ventricle was normal-sized with normal systolic function. LVEF was 64%. There was no gross wall motion abnormality. Right ventricle was normal-sized with normal systolic function. Both atria were normal-sized. Aortic valve was trileaflet. There was no aortic insufficiency/stenosis. There was trivial mitral/tricuspid regurgitation. There was no pulmonary valve insufficiency. Right ventricular systolic pressure was assessed at 34 mm Hg. There was no pericardial effusion. Symptomatic hypoglycemia, resolved Sepsis, in the setting of pneumonia/complicated UTI Sinus tachycardia, likely secondary to the above Abnormal D-Dimer, PE/DVT ruled out Chronic diastolic heart failure Baseline poor functional status Old history of previous CVA Residual left hemiparesis Chronic kidney disease Diabetes mellitus II Hyperlipidemia Hypertension Hyperkalemia Anemia, significant CARDIAC SUGGESTIONS FOR MANAGEMENT: Fluid volume management per Nephrology secondary to renal status Proceed with close observation for overt signs of fluid overload Proceed with strict intakes, outputs, and daily weights Proceed with close rate and rhythm surveillance Sustain Magnesium level greater than 2.0 Sustain Potassium level greater than 4.0 Follow up renal function and electrolytes Supplemental oxygen as warranted PRN Lopressor (IV) for rate control On IV antibiotic therapy Management of diabetes mellitus/hypoglycemia as per primary team Management of sepsis (pneumonia/UTI) as per primary team Management of chronic kidney disease as per Nephrology Management of co-morbidities per primary team Proceed with close hemodynamic surveillance Proceed with optimized blood pressure control Transfuse to sustain HGB level above 7.0 Management in telemetry Follow up hr consultant recommendations Will proceed to follow from a cardiac perspective Further recommendations per clinical progression All available diagnostic labs, EKG's, and images were personally reviewed Plan of care discussed with and agreed upon by patient / primary RN Prognosis: Guarded Thank you for allowing me to participate in the care of this patient. Further recommendations based on patients clinical course and progression, primary attending, and other consultants. Will continue to follow with primary attending. If you have any questions or concerns, please do not hesitate to contact me. A total of 55 minutes was spent reviewing the patient record, examining the patient, making a diagnostic and therapeutic plan, discussing this plan with medical personnel, following up on diagnostic studies and following the patient for clinical stability excluding any and all procedures. At least 50% of this time was spent in direct, [id number] Dietary Evaluation Review Comments: 1. Continue current diet regime Expected Outcomes/Goals: 1. Pt will continue >75% PO intake within 3-5 days Plan discussed with: Other (nurse) CC Plasma Assessment Blood Product Administration S: [id number] FAN HAMEED MD Jan 11, 2025 08:14
--- NOTE | 2025-01-11 08:44 | DVHDS2 ---
Discharge Summary Date of Admission Dec 29, 2024 at 09:15 Date of Discharge: Jan 11, 2025 Labs/Diagnostic Data: Laboratory Results Test 01/11/25 06:18 01/11/25 05:52 01/07/25 05:53 01/04/25 13:20 POC Glucose 126 mg/dl (70-106) White Blood Count 15.5 10^3/uL (4.4-10.8) Red Blood Count 2.98 10^6/uL (4.5-5.90) Hemoglobin 8.8 g/dL (13.5-17.5) Hematocrit 27.0 % (41.0-53.0) Mean Corpuscular Volume 90.7 fL (80.0-100.0) Mean Corpuscular Hemoglobin 29.5 pg (28.0-32.0) Mean Corpuscular Hemoglobin Concent 32.5 g/dL (32.0-36.0) Red Cell Distribution Width 17.9 % (11.8-14.3) Platelet Count 293 10^3/uL (140-450) Mean Platelet Volume 10.6 fL (6.9-10.8) Neutrophils (%) (Auto) 74.8 % (37.0-80.0) Lymphocytes (%) (Auto) 16.0 % (10.0-50.0) Monocytes (%) (Auto) 8.7 % (0.0-12.0) Eosinophils (%) (Auto) 0.1 % (0.0-7.0) Basophils (%) (Auto) 0.4 % (0.0-2.0) Neutrophils # (Auto) 11.6 10 ^3/uL (1.6-8.6) Lymphocytes # (Auto) 2.5 10 ^3/uL (0.4-5.4) Monocytes # (Auto) 1.4 10 ^3/uL (0-1.3) Eosinophils # (Auto) 0 10 ^3/uL (0-0.8) Basophils # (Auto) 0.1 10 ^3/uL (0-0.2) Nucleated Red Blood Cells 0.0 % Sodium Level 141 mmol/L (136-145) Potassium Level 3.9 mmol/L (3.5-5.1) Chloride Level 111 mmol/L (98-107) Carbon Dioxide Level 18 mmol/L (20-31) Anion Gap 12 (5-15) Blood Urea Nitrogen 94 mg/dL (9-23) Creatinine 2.41 mg/dL (0.700-1.30) Glomerular Filtration Rate Calc 33 mL/min (>90) BUN/Creatinine Ratio 39.0 (10.0-20.0) Serum Glucose 128 mg/dL (74-106) Calcium Level 8.5 mg/dL (8.7-10.4) Magnesium Level 2.1 mg/dL (1.6-2.6) Total Bilirubin 0.2 mg/dL (0.2-1.0) Aspartate Amino Transferase (AST) 39 U/L (13-40) Alanine Aminotransferase (ALT) 60 U/L (7-40) Alkaline Phosphatase 432 U/L (46-116) Total Protein 5.4 g/dL (5.7-8.2) Albumin 3.0 g/dL (3.2-4.8) Phosphorus Level 4.5 mg/dL (2.4-5.1) Lactic Acid Level 0.5 mmol/L (0.4-2.0) Test 12/31/24 23:00 12/31/24 14:33 12/29/24 15:56 12/29/24 06:57 Influenza Type A Antigen Negative (Negative) Influenza Type B Antigen Negative (Negative) SARS-CoV-2 Antigen (Rapid) Negative (NEGATIVE) B-Type Natriuretic Peptide 115.58 pg/mL (0-100) Triglycerides Level 107 mg/dL (< 150) Cholesterol Level 221 mg/dL (< 200) LDL Cholesterol 116 mg/dL (< 100) HDL Cholesterol 67 mg/dL (40-59) D-Dimer, Quantitative 1.00 mg/L FEU (0.0-0.49) Urine Color Colorless (Yellow) Urine Clarity Turbid (Clear) Urine pH 6.0 (5.0-9.0) Urine Specific [place] 1.014 (1.001-1.035) Urine Protein 3+ (Negative) Urine Ketones Negative (Negative) Urine Blood 1+ /uL (Negative) Urine Nitrite Negative (Negative) Urine Bilirubin Negative (Negative) Urine Urobilinogen Normal mg/dL (Negative) Urine Leukocyte Esterase 3+ /uL (Negative) Urine RBC 3 /hpf (0 - 3) Urine WBC Clumps Present /hpf (None Seen) Urine Microscopic WBC 447 /HPF (0-3) Urine Squamous Epithelial Cells Few /hpf (<5) Urine Bacteria None seen /hpf (None Seen) Urine Hyaline Casts Few /lpf (0 - 2) Urine Yeast (Budding) Occasional /hpf (None Urine Glucose 2+ mg/dL (Normal) Test 12/29/24 05:44 Prothrombin Time 10.3 sec (9.3-11.8) Prothrombin Time INR 0.97 (0.9-1.15) Activated Partial Thromboplast Time 29.6 SEC (24.5-34.5) Troponin I High Sensitivity 16 ng/L (</=54) Thyroid Stimulating Hormone (TSH) 4.37 uIU/mL (0.55-4.78) Other Laboratory Tests 01/11/25 05:52 Brief Hx & Hospital Course: 44 yo male patient with hx of cerebral palsy and bed ridden BIBA with c/o ALOC. Family reported that patient had been behaving differently for a few hours. Patient was found to have a BS of 40. While in the emergency department the patient was evaluated by the provider, As per provider: Labs, vital signs, and imagining monitored. Patient was admitted on 12/29/2024 for sepsis related to pneumonia and catheter related UTI. Patient has a history of CKD. Patient had a slight LISANDRO superimposed on CKD. Nephrology was consulted. Patient also has a history of heart failure. Cardiology was consulted and patient was given diuretics. Patient was seen by infectious disease. Patient did complete her antibiotic course while in the hospital. Patient became awake and alert and at his baseline. Patient was able to feed himself and he was weaned off oxygen. Patient returned back to hospice services and into the care of his mother. He was instructed to follow up with his PCP Dr. Chavira in 1 week. The patient received proper medical treatment and medications. Vital signs, Imaging and Laboratory Work was monitored daily. All consults recommendations were followed as provided. There were no complaints or new complaints upon discharge, all questions and concerns were answered. Patient was advised to return to the ER or call 911 if any headaches, dizziness, shortness of breath, chest pain, bleeding, fevers, or worsening of medical condition. Patient/Family was counseled about treatment plan, medications, possible side effects, patient verbalized understanding. All questions were answered to the best of my ability. The patient symptoms improved and they are okay to be DC. Condition at Discharge: Stable Final Diagnosis/Problems List Sepsis PNA UTI LISANDRO Hypoglycemia DM II Bed bound Acute cystitis w/o hematuria Hx CVA with residual deficits CKD 3b Acute hypoxic respiratory failure Discharge Disposition: Hospice - Home Discharge Instruct/Medications Diet: Consistent carbohydrate Activity: No Restrictions, As Tolerated Follow Up/Referral: pcp 1 week Discharge Statement: "Patient was advised to return to the ER or call 911 if any headaches, dizziness, shortness of breath, chest pain, abdominal pain, bleeding, fevers, or worsening of medical condition. Patient was counseled about treatment plan, medications, possible side effects, patientverbalized understanding. All questions were answered to the best of my ability. This discharge took greater then 30 minutes in planning, reviewing documentation, counseling the patient, and discussing with other team members." ASSESSMENT ASSESSMENT Assessment Sepsis, PNA, UTI LISANDRO RAÚL STEEL NP Jan 11, 2025 08:44
[2025-01-11] MEDS ORDERED: ATOR20TA50 PO (08:45)
[2025-01-11] MEDS ORDERED: FURO40TA4 PO (08:45)
[2025-01-11] MEDS ORDERED: SODI650T PO (08:45)
[2025-01-11] MEDS: FUROSEMIDE 40 MG TAB PO SCH (09:16)
--- NOTE | 2025-01-11 11:21 | DVHPN2 ---
Progress Note - Dictate Date Seen: Jan 11, 2025 Medical Necessity Reason Pt with a Central, PICC or Fol: Yes The following are medically ne: Smith Catheter Reason for smith catheter: Strict I&O Subjective no acute issues denies shortness of breath vital signs Vital Sign Date Time Temp Pulse Resp B/P (MAP) Pulse Ox O2 Delivery O2 Flow Rate FiO2 01/11/25 10:46 89 16 100 01/11/25 10:40 Room Air 0.0 01/11/25 10:40 21 01/11/25 10:02 97.9 01/11/25 09:16 137/80 Total Intake and Output 01/10/25 01/10/25 01/11/25 15:00 23:00 07:00 Intake Total 50 ml 650 ml 300 ml Output Total 600 ml 525 ml 500 ml Balance -550 ml 125 ml -200 ml medications Current Medications Medications Dose Ordered Sig/Wai Route Start Time Stop Time Status Last Admin Dose Admin Ondansetron HCl 4 mg Q4HP PRN IV 12/29/24 09:15 Docusate Sodium 100 mg BIDPRN PRN PO 12/29/24 09:15 Zinc Sulfate 220 mg DAILY PO 12/29/24 10:00 01/11/25 09:15 220 MG Ascorbic Acid 500 mg BID PO 12/29/24 10:00 01/11/25 09:16 500 MG Multivitamins 1 tab DAILY PO 12/29/24 10:00 01/11/25 09:16 1 TAB Acetaminophen 650 mg Q6HP PRN PO 12/29/24 09:15 12/30/24 08:58 650 MG Amlodipine Besylate 10 mg DAILY PO 12/29/24 10:00 01/11/25 09:16 10 MG Tamsulosin HCl 0.4 mg QPM PO 12/29/24 18:00 01/10/25 17:14 0.4 MG Metoprolol Tartrate 5 mg Q4HPRN PRN IV 12/29/24 15:30 12/30/24 08:57 5 MG Albuterol 2.5 mg Q4HR NEB 12/30/24 14:00 01/11/25 10:40 2.5 MG Ipratropium [place] 0.5 mg Q4HR NEB 12/30/24 14:00 01/11/25 10:40 0.5 MG Piperacillin Sod/ Tazobactam Sod 100 ml @ 25 mls/hr Q8HR IV 12/31/24 22:00 UNV Atorvastatin Calcium 20 mg HS PO 01/01/25 22:00 01/10/25 21:22 20 MG Sodium Bicarbonate 650 mg TID PO 01/02/25 22:00 01/11/25 06:31 650 MG Diagnostic Test (Pha) 1 strip ACHS 01/05/25 11:30 01/11/25 06:31 1 STRIP Insulin Human Regular ACHS SC 01/05/25 11:30 01/10/25 21:39 3 UNITS Dextrose 50 ml UD PRN IV 01/05/25 09:45 Budesonide 0.5 mg BID NEB 01/06/25 22:00 01/11/25 05:54 0.5 MG Meropenem 50 ml @ 17 mls/hr Q12HR IV 01/08/25 22:00 UNV Insulin Glargine 10 units BID SC 01/10/25 22:00 01/11/25 09:36 10 UNITS Furosemide 40 mg DAILY PO 01/11/25 10:00 01/11/25 09:16 40 MG Cefepime HCl 50 ml @ 12.5 mls/hr Q24H IV 01/10/25 22:00 01/10/25 21:50 12.5 MLS/HR objective Gen: NAD HEENT: NC,AT Lungs: Bilateral rales Cardiac: Tachycardia, no murmur Abd: soft, no tenderness Ext: no edema laboratory and microbiology Laboratory Tests 01/11/25 05:52 Test 01/11/25 05:52 Range/Units Serum Glucose 128 H 74-106 mg/dL Problem List Acute kidney injury CKD III. (Baseline Cr: 1.6 mg/dl on May/2024) Pulmonary edema Acute hypoxic respiratory failure: Improving Sepsis secondary to pneumonia Acute on Chronic diastolic CHF Acute anemia DM HTN HLD h/o CVA with residual left sided weakness bed bound Assessment/Plan Plan: continue po lasix Continue Sodium bicarb 650 mg PO TID Bronchodilator therapy p.r.n. 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 Continue current diet regime Expected Outcomes/Goals: 1. Pt will continue >75% PO intake within 3-5 days Plan discussed with: Patient CC Plasma Assessment Blood Product Administration S: [id number] RAÚL YSOT MD Jan 11, 2025 11:21
--- NOTE | 2025-01-11 23:22 | DVHPN2 ---
Progress Note - Dictate Date Seen: Jan 11, 2025 Medical Necessity Reason Pt with a Central, PICC or Fol: Yes The following are medically ne: Smith Catheter Reason for smith catheter: Strict I&O Subjective Patient seen and examined at bedside. Breathing on room air. Overnight events reviewed. vital signs Vital Sign Date Time Temp Pulse Resp B/P (MAP) Pulse Ox O2 Delivery O2 Flow Rate FiO2 01/11/25 12:27 97.3 94 20 126/84 (98) 97 97.3 01/11/25 10:40 Room Air 0.0 01/11/25 10:40 21 Total Intake and Output 01/10/25 01/10/25 01/11/25 15:00 23:00 07:00 Intake Total 50 ml 650 ml 300 ml Output Total 600 ml 525 ml 500 ml Balance -550 ml 125 ml -200 ml medications Current Medications Medications Dose Ordered Sig/Wai Route Start Time Stop Time Status Last Admin Dose Admin Piperacillin Sod/ Tazobactam Sod 100 ml @ 25 mls/hr Q8HR IV 12/31/24 22:00 UNV Meropenem 50 ml @ 17 mls/hr Q12HR IV 01/08/25 22:00 UNV objective Gen.: Patient lying in bed in no apparent distress. On room air. Head: Normocephalic, atraumatic. Eyes: EOMI/PERRLA. Ears: Normal hearing. Normal anatomy. Neck/trachea: Trachea midline, supple. Nose: Normal external anatomy. Mouth: Moist mucous membranes. Chest: Decreased air entry bilaterally. Wheezing noted. No rhonchi. Cardiovascular: Positive S1, positive S2. Regular rate and rhythm. Abdomen: Positive bowel sounds in all 4 quadrants. Soft, non-tender, non- distended. : Deferred. Rectal: Deferred. Skin: Warm, dry. Intact. Extremities: 2+ radial pulses bilaterally. No lower extremity edema. Neuro: Awake, alert, oriented x3. No gross motor or sensory deficits. Cranial nerves II through XII intact. Gait not assessed. laboratory and microbiology Laboratory Tests 01/11/25 05:52 Test 01/11/25 05:52 Range/Units Serum Glucose 128 H 74-106 mg/dL Assessment/Plan Impression: Acute hypoxic respiratory failure Sepsis DM type II w/ hypoglycemia Urinary tract infection CVA with left-sided deficits Pneumonia, likely gram negative Cachexia, BMI 13.9 Events: Remains on room air Supplemental oxygen PRN Continue with head of bed elevation and aspiration precautions Continue bronchodilators/Pulmicort Incentive spirometry Accu-Cheks, ISS. Completed antibiotic course. ID recommendations appreciated. Vitamin supplementation Cardiology recommendations appreciated Monitor hemoglobin Diurese to euvolemia w/ Lasix. Monitor renal function. Monitor electrolytes. Supplement as necessary. Monitor ins and outs. Nephrology recommendations appreciated NTS PRN. Dispo per hospitalist Labs and imaging reviewed. Rest of plan as noted below. Plan: Supplemental oxygen PRN Keep O2 sats above 92%. Head of bed elevation Aspiration precautions. NTS Continue bronchodilators. Completed antibiotic course Accu-Cheks for glycemic monitoring DVT prophylaxis. Prognosis: Guarded given patient's multiple co-morbidities. Rest of plan per hospitalist and other consultants. Thank you, ANITHA Vergara, for allowing me to participate in this patient's care. Further recommendations will depend on the patient's clinical course. Please do not hesitate to contact me if you have any questions or concerns. This medical document was created using an electronic medical record system with [employer] dictation system. Although these documentations are being carefully reviewed, there may still be some phonetic and typographical changes. The errors are purely typographical, due to imperfection on the software program, and do not reflect any compromise in the patient's medical care. Dietary Evaluation Review Comments: 1. Continue current diet regime Expected Outcomes/Goals: 1. Pt will continue >75% PO intake within 3-5 days Plan discussed with: Patient, Other (CARMEN Stiles) CC Plasma Assessment Blood Product Administration S: [id number] EDGARDO CULLEN MD Jan 11, 2025 23:22
== END 2025-01-11 13:06 | disposition hospice, home (50) | DRG 720 ==
LOC: ER 05:09 → EDBD 05:09 → TELE 09:15 → TELE-WESTW 21:15 → TELE 01-05 15:51 → WEST WING 01-05 16:04 → OVERFLOW 01-06 13:22 → TELE-WESTW 01-06 13:40
PROVIDERS: ADMIT Nurse Practitioner; ATTEND Nurse Practitioner
PROC: 05HD33Z Insertion of Infusion Device into Right Cephalic Vein, Percutaneous Approach (ICD-10-PCS; 2024-12-30)
PROC: B54MZZA Ultrasonography of Right Upper Extremity Veins, Guidance (ICD-10-PCS; 2024-12-30)
PROC: 30233N1 Transfusion of Nonautologous Red Blood Cells into Peripheral Vein, Percutaneous Approach (ICD-10-PCS; principal; 2025-01-02)
DX: A41.50 Gram-negative sepsis, unspecified (principal); J96.01 Acute respiratory failure with hypoxia; G93.41 Metabolic encephalopathy; I50.33 Acute on chronic diastolic (congestive) heart failure; J15.69 Pneumonia due to other Gram-negative bacteria; E87.20 Acidosis, unspecified; I13.0 Hypertensive heart and chronic kidney disease with heart failure and stage 1 through stage 4 chronic kidney disease, or unspecified chronic kidney disease; E11.649 Type 2 diabetes mellitus with hypoglycemia without coma; N17.9 Acute kidney failure, unspecified; I69.354 Hemiplegia and hemiparesis following cerebral infarction affecting left non-dominant side; R64 Cachexia; E78.5 Hyperlipidemia, unspecified; E87.5 Hyperkalemia; N18.32 Chronic kidney disease, stage 3b; N30.00 Acute cystitis without hematuria; Z74.01 Bed confinement status; D64.9 Anemia, unspecified; E11.65 Type 2 diabetes mellitus with hyperglycemia; E66.9 Obesity, unspecified; E11.22 Type 2 diabetes mellitus with diabetic chronic kidney disease; G80.9 Cerebral palsy, unspecified; Z68.1 Body mass index [BMI] 19.9 or less, adult; Z83.3 Family history of diabetes mellitus; Z82.3 Family history of stroke; Z99.81 Dependence on supplemental oxygen; Z79.84 Long term (current) use of oral hypoglycemic drugs; Z79.899 Other long term (current) drug therapy
CPT/HCPCS: 36415; 36600; 71045; 76775; 78582; 80048; 80053; 80061; 81001; 82805; 82962; 83605; 83735; 83880; 84100; 84443; 84484; 85014; 85018; 85025; 85379; 85610; 85730; 86850; 86900; 86901; 86920; 87040; 87070; 87081; 87086; 87088; 87205; 87426; 87804; 93005; 93306; 93970; 94640; 94667; 94668; 96365; 96375; 99291; 99292; G0378; J1815; J2543; J7042

== ENCOUNTER 2025-05-09 19:08 | Inpatient (IN) | payer OTHER ==
[~2025-05-09] VITALS: Ht 152.4 cm; Wt 58.3 kg
[~2025-05-09 19:08] MED LIST changes: +ATOR20TA50 PO; -CIPR-173 PO; +FURO40TA4 PO; +SODI650T PO
--- NOTE | 2025-05-09 19:23 | ED.PDOC ---
History of Present Illness HPI Comments 44 y/o M is BIBA with mother for shortness of breath. Per mother, who is a poor historian, patient symptoms, initially, started off as an 'ear-infection' that has progressed into the patient having difficulty breathing and suspicions on jocelyn PNA. He has a history of CVA and is bedbound. No chest pain, cough, congestion, fever, chills, or further associated symptoms endorsed. Time Seen by MD: 19:10 Primary Care Provider: UNKOWN Reviewed Notes: Nurses Notes, Tobacco Stripper Notes, Medications, Allergies Allergies: Coded Allergies: NO KNOWN ALLERGIES (Unverified , 07/19/23) Home Meds Active Scripts Sodium Bicarbonate (Sodium Bicarbonate) 650 Mg Tab, 650 MG PO TID for 30 Days, #90 TAB Prov:VINITAMICHELLERAÚL Angie PATIENT SERVICES CLERK 01/11/25 Furosemide (Furosemide) 40 Mg Tab, 40 MG PO DAILY for 30 Days, #30 TAB Prov:RAÚL STEEL Angie PATIENT SERVICES CLERK 01/11/25 Atorvastatin Calcium (ATORVASTATIN CALCIUM) 20 Mg Tab, 20 MG PO HS for 30 Days, #30 TAB Prov:RAÚL STEEL Angie PATIENT SERVICES CLERK 01/11/25 Reported Medications Tamsulosin Hcl (Tamsulosin Hcl) 0.4 Mg Cap, 1 CAP PO DAILY for 30 Days, #30 12/31/24 Lisinopril (Lisinopril) 40 Mg Tab, 1 TAB PO DAILY for 30 Days, #30 12/31/24 Amlodipine Besylate (Amlodipine Besylate) 10 Mg Tab, 1 TAB PO DAILY for 30 Days, #30 12/31/24 Metformin Hydrochloride (Metformin Hcl) 500 Mg Tab, 1 TAB PO DAILY for 30 Days, #30 TAKE 1 TABLET BY MOUTH ONCE DAILY WITH BREAKFAST. 12/31/24 Glipizide (Glipizide Er) 5 Mg Tab, 1 TAB PO DAILY for 30 Days, #30 TAKE 1 TABLET BY MOUTH ONCE DAILY WITH BREAKFAST. 12/31/24 Information Source: Relative (Mother), Emergency Med Personnel Mode of Arrival: EMS Severity: Moderate Timing: Hours Duration: Since onset Prehospital treatment: 12 Lead EKG, Pharm Spec Past Medical History PAST MEDICAL HISTORY: CKF (stage 3b), CVA (with residual deficits), DM, UTI'S Past Medical History (Other): cerebral palsy sepsis PNA LISANDRO Surgical History: Denies all surgeries Family History Family History: Reviewed,noncontributory to illness Social History Smoker: Non-Smoker Alcohol: Denies ETOH Use Drugs: Denies Drug Use Lives In: Home, Assisted Care All Other Systems: Reviewed and Negative (As per HPI) Physical Exam General Appearance: No Apparent Distress, Normal, Other (bed bound ) HEENT: Normal ENT Inspection, Pharynx Normal, TMs Normal Neck: Full Range of Motion, Non-Tender, Normal, Normal Inspection Respiratory: Chest Non-Tender, No Accessory Muscle Use, No Respiratory Distress, Wheezing Cardiovascular: No Edema, No JVD, No Murmur, No Gallop, Normal Peripheral Pulses, Regular Rate/Rhythm Breast Exam: Deferred Gastrointestinal: No Organomegaly, Non Tender, No Pulsatile Mass, Normal Bowel Sounds, Soft Genitalia: Deferred Pelvic: Deferred Rectal: Deferred Extremities: No calf tenderness, Normal capillary refill, Normal inspection, Normal range of motion, Non-tender, No pedal edema Musculoskeletal : Apperance: Normal Neurologic: Alert, enrollment processor II-XII nml as Tested, No Motor Deficits, Normal Affect, Normal Mood, No Sensory Deficits Cerebellar Function: Normal Reflexes: Normal Skin: Dry, Normal Color, Warm Lymphatic: No Adenopathy Was a procedure done? Was a procedure done?: No EKG EKG : Pulse Rate (adult): 102 [place]: Normal Cardiac Rhythm: ST Block: None Hypertrophy: None ST: Normal Differential Dx Considerations may include: PNA, URI, viral syndrome, PE, ACS, TX, among others X-Ray, Labs, Meds, VS Vital Signs Date Time Temp Pulse Resp B/P (MAP) Pulse Ox O2 Delivery O2 Flow Rate FiO2 05/09/25 19:46 17 100 Room Air* 0 21 21 05/09/25 19:23 102 05/09/25 19:15 102 05/09/25 19:08 97.7 104 24 150/87 (108) 100 97.7 Lab Test 05/09/25 20:44 05/09/25 19:30 Range/Units Sodium Level Pending 147 H 136-145 mmol/L Potassium Level Pending 8.0 *H 3.5-5.1 mmol/L Chloride Level Pending 121 H 98-107 mmol/L Carbon Dioxide Level Pending < 10 *L 20-31 mmol/L Anion Gap Pending 16.29478 H 5-15 Blood Urea Nitrogen Pending 157 *H 9-23 mg/dL Creatinine Pending 5.69 H 0.700-1.30 mg/dL Glomerular Filtration Rate Calc Pending 12 >90 mL/min BUN/Creatinine Ratio Pending 27.6 H 10.0-20.0 Serum Glucose Pending 277 H 74-106 mg/dL Calcium Level Pending 7.3 L 8.7-10.4 mg/dL Troponin I High Sensitivity Pending 81 *H </=54 ng/L White Blood Count 26.7 H 4.4-10.8 10^3/uL Red Blood Count 1.99 L 4.5-5.90 10^6/uL Hemoglobin 5.9 *L 13.5-17.5 g/dL Hematocrit 19.9 L 41.0-53.0 % Mean Corpuscular Volume 100.2 H 80.0-100.0 fL Mean Corpuscular Hemoglobin 29.6 28.0-32.0 pg Mean Corpuscular Hemoglobin Concent 29.5 L 32.0-36.0 g/dL Red Cell Distribution Width 18.6 H 11.8-14.3 % Platelet Count 287 140-450 10^3/uL Mean Platelet Volume 11.6 H 6.9-10.8 fL Neutrophils (%) (Auto) 97.9 H 37.0-80.0 % Lymphocytes (%) (Auto) 0.9 L 10.0-50.0 % Monocytes (%) (Auto) 0.7 0.0-12.0 % Eosinophils (%) (Auto) 0.0 0.0-7.0 % Basophils (%) (Auto) 0.5 0.0-2.0 % Neutrophils # (Auto) 26.2 H 1.6-8.6 10 ^3/uL Lymphocytes # (Auto) 0.2 L 0.4-5.4 10 ^3/uL Monocytes # (Auto) 0.2 0-1.3 10 ^3/uL Eosinophils # (Auto) 0 0-0.8 10 ^3/uL Basophils # (Auto) 0.1 0-0.2 10 ^3/uL Nucleated Red Blood Cells 1.3 % Lactic Acid Level 0.7 0.4-2.0 mmol/L Total Bilirubin < 0.2 L 0.2-1.0 mg/dL Aspartate Amino Transferase (AST) 94 H <34 U/L Alanine Aminotransferase (ALT) 66 H 7-40 U/L Alkaline Phosphatase 382 H 46-116 U/L B-Type Natriuretic Peptide 528.66 0-100 pg/mL Total Protein 6.9 5.7-8.2 g/dL Albumin 3.2 3.2-4.8 g/dL Beta-Hydroxybutyric Acid Pending Current Medications Medications (Trade) Dose Ordered Sig/Wai Route Start Time Stop Time Status Last Admin Albuterol (Ventolin Medneb) 5 mg ONCE ONCE N 05/09/25 19:15 05/09/25 19:19 DC 05/09/25 19:42 Ipratropium [place] (Atrovent Medneb) 0.5 mg ONCE ONCE N 05/09/25 19:15 05/09/25 19:19 DC 05/09/25 19:42 Sodium Chloride 1,500 ml @ 1,500 mls/hr ONCE ONCE IV 05/09/25 20:15 05/09/25 21:14 05/09/25 20:49 Piperacillin Sod/ Tazobactam Sod 100 ml @ 100 mls/hr ONCE ONCE IV 05/09/25 20:15 05/09/25 21:14 05/09/25 20:49 Time of 1ST Reevaluation: 19:40 Reevaluation 1ST: Unchanged Patient Education/Counseling: Diagnosis, Treatment Family Education/Counseling: Diagnosis, Treatment Sepsis Sepsis Reasesment Focused Exam Orders: Laboratory Tests 05/09/25 19:30: Lactic Acid Level 0.7 Departure 1 Departure Time of Disposition: 21:06 Impression: Primary Impression: Metabolic encephalopathy Additional Impressions: DKA, type 1 Acute renal failure Hyperkalemia Symptomatic anemia Disposition: ADMITTED INPATIENT Admit to: ICU Condition: Critical Comments DKA with Acute Renal Failure in 44-year-old Male with History of Diabetes Chief Complaint: Respiratory distress, possible pneumonia History of Present Illness: 44-year-old male with a history of poorly controlled diabetes, prior strokes, and cognitive decline was brought in by ambulance from home. The patient's mother reported that he was 'breathing hard' and expressed concern about a possible pneumonia, noting that he had a recent ear infection. The patient is reportedly on hospice care, though no pulse form or code status documentation was available at the time of presentation. The patient has a known history of left-sided hemiparesis and expressive aphasia as sequelae from his previous strokes. Initial assessment revealed signs of metabolic distress with Kussmaul respirations and bilateral scattered wheezing, raising concern for diabetic ketoacidosis. Review of Systems: Constitutional: Appears in acute distress with labored breathing. Respiratory: Kussmaul respirations, scattered bilateral wheezing. Cardiovascular: No reported chest pain or palpitations. Neurological: Baseline left-sided hemiparesis and expressive aphasia. HEENT: Recent ear infection per mother. All other systems: Unable to fully assess due to patient's communication limitations and acute condition. Medications: Complete medication list unavailable at time of presentation. Likely on insulin therapy given history of diabetes, specific regimen unknown. Past Medical History: Poorly controlled diabetes mellitus Multiple previous strokes with residual left-sided hemiparesis and expressive aphasia Cognitive decline Recent ear infection History of pneumonia Patient is on hospice care Past Surgical History: No surgical history available at time of presentation. Social History: Lives at home with mother who is caregiver Functional status: Limited by neurological deficits Hospice status: Enrolled in hospice services, but no documented code status Physical Exam: General: 44-year-old male in moderate respiratory distress. Respiratory: Kussmaul respirations present. Scattered wheezing bilaterally on auscultation. Neurological: Left-sided hemiparesis. Expressive aphasia limiting verbal communication. Cardiovascular: Specific findings not documented. Abdominal: Specific findings not documented. Extremities: Specific findings not documented. Lab Results: Basic Metabolic Panel: - Sodium: 147 mEq/L (elevated) - Potassium: 8.0 mEq/L (critically elevated) - Chloride: 121 mEq/L (elevated) - CO2: <10 mEq/L (critically low) - Anion gap: 16 (elevated) - BUN: 157 mg/dL (critically elevated) - Creatinine: 5.7 mg/dL (critically elevated) - Glucose: 172 mg/dL (elevated) Complete Blood Count: - WBC: 27,000/?L (elevated) - Hemoglobin: 6 g/dL (critically low) - Hematocrit: 20% (critically low) - Platelets: 287,000/?L (normal) Arterial Blood Gas: - pH: 7.11 (acidotic) - pCO2: 15 mmHg (low) Cardiac Enzymes: - Troponin: Elevated (specific value not provided) Imaging and Other Relevant Results: No imaging studies documented in the doctor's assistant. Medical Decision Making: Summary Statement: 44-year-old male with poorly controlled diabetes, history of strokes with residual deficits, and on hospice care presents with respiratory distress and laboratory findings consistent with severe diabetic ketoacidosis, acute renal failure, critical hyperkalemia, and severe anemia requiring emergent intervention. Problem List: 1) Diabetic ketoacidosis 2) Acute renal failure 3) Severe hyperkalemia (K+ 8.0) 4) Severe anemia (Hgb 6) 5) Elevated troponin 6) Baseline neurological deficits (left hemiparesis, expressive aphasia) 7) Hospice status without documented code status Differential Diagnosis: For the acute presentation: 1) Diabetic ketoacidosis 2) Sepsis (possibly from pneumonia or ear infection) 3) Uremic encephalopathy 4) Acute coronary syndrome 5) Acute stroke 6) Metabolic encephalopathy from multiple causes ED Course: Patient received 30 cc/kg IV fluid resuscitation for severe dehydration. Blood transfusion was administered for symptomatic anemia. Low-dose insulin infusion was initiated for DKA management. Aspirin was given for elevated troponin. Decision was made to admit to ICU for management of DKA, acute renal failure with hyperkalemia, and severe anemia requiring ongoing transfusion and monitoring. Assessment and Plan: 1. Diabetic Ketoacidosis: - Severe metabolic acidosis with pH 7.11, anion gap 16, and CO2 <10 - Continue insulin infusion at low dose with hourly glucose checks - Aggressive IV fluid resuscitation with close monitoring of electrolytes - Serial ABGs to monitor acidosis resolution 2. Acute Renal Failure with Hyperkalemia: - Critically elevated potassium at 8.0 mEq/L requiring emergent management - BUN 157 and Creatinine 5.7 indicating severe renal impairment - Administer calcium gluconate for cardiac membrane stabilization - Consider insulin/glucose, sodium bicarbonate, and albuterol for intracellular potassium shifting - Nephrology consultation for possible dialysis if hyperkalemia persists 3. Severe Anemia (Hgb 6): - Continue blood transfusion as initiated in ED - Monitor for transfusion reactions - Investigate etiology of anemia once patient is stabilized 4. Elevated Troponin: - Continue aspirin therapy as initiated - Serial cardiac enzymes - ECG monitoring - Cardiology consultation once patient is stabilized 5. Disposition: - Admit to ICU for close monitoring and management of multiple critical issues - Clarify goals of care given hospice status but lack of documented code status - Palliative care consultation to assist with goals of care discussion - Contact hospice provider for coordination of care Additional Notes: Patient is on hospice care but does not have documented code status or POLST form. Billing Information: ICD-10: E10.10 - Type 1 diabetes mellitus with ketoacidosis without coma ICD-10: N17.9 - Acute kidney failure, unspecified ICD-10: E87.5 - Hyperkalemia ICD-10: D64.9 - Anemia, unspecified ICD-10: I69.351 - Hemiplegia and hemiparesis following cerebral infarction affecting right dominant side ICD-10: R47.01 - Expressive aphasia Critical Care Note Critical Care Time?: Yes (45 min-critical care time only) Critical care comment: Total critical care time: Approximately 36 minutes Due to a high probability of clinically significant, life threatening deterioration, the patient required my highest level of preparedness to intervene emergently and I personally spent this critical care time directly and personally managing the patient. This critical care time included obtaining a history; examining the patient; pulse oximetry; ordering and review of studies; arranging urgent treatment with development of a management plan; evaluation of patient's response to treatment; frequent reassessment; and, discussions with other providers. This critical care time was performed to assess and manage the high probability of imminent, life-threatening deterioration that could result in multi-organ failure. It was exclusive of separately billable procedures and treating other patients. Stability Stability form required: No Heart Score Heart Score: Heart Score Response (Comments) Value History Moderate Suspicious 1 EKG Repolarization Disturb 1 Age <45 0 Risk Factors >3 or Hx ASHD 2 Troponin >3 x's Normal limit 2 Total 6 I personally scribed for SAVANAH PATTON MD ([email or web address]) on 05/09/25 at 19:23. Electronically submitted by Malik Ordaz ([email or web address]). SAVANAH PATTON MD May 09, 2025 19:23
[2025-05-09] MEDS: IPRATROPIUM BROM 0.5 MG/2.5ML INH SOL HHN ONE (19:42)
[2025-05-09] MEDS: ALBUTEROL SULF 2.5 MG/0.5ML(0.5%) NEB SOLN HHN ONE (19:42)
[2025-05-09 19:43] LABS: Hematocrit 19.9 % (41.0-53.0); Nucleated Red Blood Cells % 1.3 %
[2025-05-09 19:45] LABS: Mean Corpuscular Hemoglobin 29.6 pg (28.0-32.0); Mean Corpuscular Volume 100.2 fL (80.0-100.0)
[2025-05-09 19:52] LABS: Hemoglobin 5.9 g/dL (13.5-17.5)
[2025-05-09 19:58] LABS: Albumin 3.2 g/dL (3.2-4.8); Anion Gap 16.00001 (5-15); Total Protein 6.9 g/dL (5.7-8.2)
[2025-05-09 20:03] LABS: Alanine Aminotransferase 66 U/L (7-40); Alkaline Phosphatase 382 U/L (46-116); Bilirubin, Total < 0.2 mg/dL (0.2-1.0); Calcium 7.3 mg/dL (8.7-10.4); Chloride 121 mmol/L (98-107); Glucose 277 mg/dL (74-106); Sodium 147 mmol/L (136-145)
[2025-05-09 20:06] VITALS: O2SAT 100
[2025-05-09 20:08] LABS: BUN/Creatinine Ratio 27.6 (10.0-20.0)
[2025-05-09 20:10] LABS: Carbon Dioxide < 10 mmol/L (20-31); Potassium 8.0 mmol/L (3.5-5.1)
[2025-05-09 20:11] LABS: Blood Urea Nitrogen 157 mg/dL (9-23)
[2025-05-09] MEDS ORDERED: DEXTROSE (50%) 50ML SYRG IV PRN (20:30)
--- NOTE | 2025-05-09 20:30 | DVH ---
CHEST RADIOGRAPH Indication: sob Technique: Single frontal view of the chest was obtained COMPARISON: XY CHEST PORTABLE on DOS: 01/11/25 FINDINGS: Lines and Tubes: None Lungs: Mild interstitial prominence with patchy [id number]-left perihilar airspace opacity. Findings are less prominent compared to previous x-ray on 01/11/2025. Pleura: No effusion. No pneumothorax. Cardiomediastinal contours: Mild enlargement of the cardiac silhouette. Bones: Unremarkable IMPRESSION: Findings suggest a mild degree of pulmonary edema which is decreased compared to the prior study on 0 01/11/2025. Pneumonia is considered less likely.
[2025-05-09] MEDS: SODIUM CHLORIDE 0.9% 1,500 ML IV ONE (20:49)
[2025-05-09] MEDS: PIPERACILLIN-TAZOB 3.375GM 100 ML IV ONE (20:49)
[2025-05-09 21:08] LABS: Anion Gap 16.00001 (5-15)
[2025-05-09] MEDS: AZITHROMYCIN 500MG/ 250ML 250 ML IV ONE (21:08)
[2025-05-09 21:09] LABS: Chloride 120 mmol/L (98-107); Sodium 146 mmol/L (136-145)
[2025-05-09 21:10] LABS: Calcium 7.9 mg/dL (8.7-10.4)
[2025-05-09 21:13] LABS: Carbon Dioxide < 10 mmol/L (20-31); Glucose 287 mg/dL (74-106); Potassium 7.6 mmol/L (3.5-5.1)
[2025-05-09] MEDS: ACCU-CHEK COMFORT CURVE STRIP VI SCH (21:19)
[2025-05-09 21:23] LABS: BUN/Creatinine Ratio 26.8 (10.0-20.0)
[2025-05-09] MEDS: INSULIN LANTUS (GLARGINE) 1 /0.01ml (100units/ml) SC ONE (21:24)
[2025-05-09 21:32] LABS: Blood Urea Nitrogen 153 mg/dL (9-23)
[2025-05-09] MEDS: ASPirin-EC 81 mg tab PO ONE (21:40)
[2025-05-09] MEDS: INSULIN DRIP 100 UNIT/100ML 100 ML IV SCH (22:29)
[2025-05-09] MEDS ORDERED: MORPHINE SULFATE INJ 2 MG/ml SYRG IV PRN (23:15)
[2025-05-09] MEDS ORDERED: VANCOMYCIN PER PHARMACY 0 MG IV SCH (23:15)
[2025-05-09] MEDS ORDERED: NITROGLYCERIN 0.4 MG SL TAB SL PRN (23:15)
[2025-05-10] VITALS (37 sets, daily range): BP systolic 117–166; BP diastolic 55–110; PULSE 82–116; RESP 12–26; TEMP 91–98.8; O2SAT 96–100
[2025-05-10] MEDS: ALBUTEROL SULF 2.5 MG/0.5ML(0.5%) NEB SOLN NEB ONE ×2 (00:10→07:16)
[2025-05-10] MEDS: FUROSEMIDE 40 MG/4 ML VIAL IV ONE ×2 (00:21→08:18)
[2025-05-10] MEDS: VANCOMYCIN 1GM/200ML PM 200 ML IV ONE (00:22)
[2025-05-10] MEDS: SODIUM CHLORIDE 0.9% 500 ML IV ONE (00:22)
[2025-05-10] MEDS: CALCIUM GLUC 1,000mg/50ml-NS 50 ML IV ONE (00:32)
[2025-05-10] MEDS: SODIUM BICARB 8.4% 50Meq/50ml SYR Vial IV STA (00:33)
[2025-05-10] MEDS: ALBUTEROL SULF 2.5 MG/0.5ML(0.5%) NEB SOLN NEB SCH (01:05)
[2025-05-10] MEDS: ACETYLCYSTEINE 20%(200MG/ML) SOL 4ML NEB SCH (01:05)
[2025-05-10] MEDS: ACCU-CHEK COMFORT CURVE STRIP VI SCH (02:09)
--- NOTE | 2025-05-10 02:15 | DVHHPRES ---
History of Present Illness Resident Creating Document: PAT COWART RESIDENT History of Present Illness Patient is a 44-year-old male who is minimally verbal and is alert and oriented x1 and proper history could not be obtained. On reviewing the old charts it looks patient has a history of stroke with residual deficits, CKD, diabetes mellitus, urethral stricture, recurrent UTIs, previous admissions for sepsis and acute kidney injury was brought in by EMS today after mother noted in having shortness of breath. As per the mother patient started having difficulty breathing, no fever or chills were noted following which she called the EMS. Past medical history: stroke with residual deficits, CKD, diabetes mellitus, urethral stricture, recurrent UTIs, previous admissions for sepsis and acute kidney injury Surgical history: Unknown Social history: Patient lives with the her mother and is bed-bound Home medications: Lisinopril 40 mg, Lasix 40 mg, amlodipine, atorvastatin, metformin 500 daily, sodium bicarbonate 650 t.i.d., tamsulosin 0.4 mg Review of Systems Review of Systems Patient seen and examined at the bedside A&O x1 and speech is difficult to comprehend Has eye opening to voice commands, moves extremity to pain and voice is not clear Patient could not tell about any symptoms Allergies: Coded Allergies: NO KNOWN ALLERGIES (Unverified , 07/19/23) Medications Current Medications Medications Dose Ordered Sig/Wai Route Start Time Stop Time Status Last Admin Dose Admin Sodium Chloride 1,000 ml @ 150 mls/hr Q6H40M IV 05/10/25 02:30 Dextrose 50 ml UD PRN IV 05/09/25 20:30 Diagnostic Test (Pha) 1 strip Q90MIN 05/09/25 21:00 05/09/25 23:59 1 STRIP Insulin Glargine 15 units DAILY SC 05/10/25 10:00 Nitroglycerin 0.4 mg Q5MINP PRN SL 05/09/25 23:15 Morphine Sulfate 2 mg Q30M PRN IV 05/09/25 23:15 Albuterol 2.5 mg Q6HR NEB 05/10/25 00:00 Acetylcysteine 200 mg Q6HR NEB 05/10/25 00:00 Vancomycin HCl 0 ml @ 0 mls/hr UD IV 05/09/25 23:15 UNV Piperacillin Sod/ Tazobactam Sod 100 ml @ 25 mls/hr Q12HR IV 05/10/25 10:00 Exam Vital Signs Vital Signs Date Time Temp Pulse Resp B/P (MAP) Pulse Ox O2 Delivery O2 Flow Rate FiO2 05/10/25 01:25 97.5 101 18 141/55 97.5 05/10/25 00:25 100 05/10/25 00:10 Room Air* 0 21 Exam Gen - conjunctival pallor seen, no icterus, no cyanosis, no clubbing, no LAD, no edema . Skin - Patients skin is warm and dry. HEENT - normocephalic, atraumatic, moist mucous membranes. Neck - full ROM, no LAD, no JVD Pulmonary - B/L coarse rales heard, no wheezing, no stridor. cardiovascular - regular S1,S2 heard, no added sounds, no murmurs heard. peripheral pulses normal radial 2+, pedal 2+. capillary refill normal <2 secs. GI - soft abdomen. no hepatospleenomegaly. Bowel sounds normoactive Neurological - Patient is A/O X 1 . As per the records patient is bed-bound Labs/Xrays Labs Test 05/09/25 23:57 05/09/25 23:49 05/09/25 22:33 05/09/25 20:44 Range/Units POC Glucose 262 H 70-106 mg/dl Blood Gas Specimen Type Venous Blood Gas Sample Site Left radial Blood Gas Patient Temperature 37.0 Arterial Blood Date Drawn [id number] Alberto Test Yes Venous Blood pH 7.003 *L 7.320-7.430 Venous Blood pCO2 at Patient Temp 16.6 L 38.0-54.0 mmHg Venous Blood pO2 at Patient Temp 49.3 H 23.0-48.0 mmHg Venous Blood HCO3 4.0 L 22.0-29.0 mmol/L Venous Bld O2 Saturation (Measured) 66.0 60.0-85.0 % Venous Blood Base Excess -24.9 L -2.0-3.0 mmol/L Venous Blood Total Hemoglobin 5.5 L 13.5-17.5 g/dL Venous Blood Oxyhemoglobin 65.0 0.0-79.0 % Venous Blood Carboxyhemoglobin 0.4 L 0.5-1.5 % Venous Blood Methemoglobin 1.1 0.0-1.5 % Blood Gas Modality Room air Blood Gas Spontaneous Rate 26 FiO2 % 21.0 Blood Gas Critical Value Read Back Yes Blood Gas Notified Whom tony Cowart md resident Blood Gas Notified Time [id number] Blood Gas Notified By Troponin I High Sensitivity 92 *H </=54 ng/L Sodium Level 146 H 136-145 mmol/L Potassium Level 7.6 *H 3.5-5.1 mmol/L Chloride Level 120 H 98-107 mmol/L Carbon Dioxide Level < 10 *L 20-31 mmol/L Anion Gap 16.14944 H 5-15 Blood Urea Nitrogen 153 *H 9-23 mg/dL Creatinine 5.70 H 0.700-1.30 mg/dL Glomerular Filtration Rate Calc 12 >90 mL/min BUN/Creatinine Ratio 26.8 H 10.0-20.0 Serum Glucose 287 H 74-106 mg/dL Calcium Level 7.9 L 8.7-10.4 mg/dL Test 05/09/25 19:30 Range/Units White Blood Count 26.7 H 4.4-10.8 10^3/uL Red Blood Count 1.99 L 4.5-5.90 10^6/uL Hemoglobin 5.9 *L 13.5-17.5 g/dL Hematocrit 19.9 L 41.0-53.0 % Mean Corpuscular Volume 100.2 H 80.0-100.0 fL Mean Corpuscular Hemoglobin 29.6 28.0-32.0 pg Mean Corpuscular Hemoglobin Concent 29.5 L 32.0-36.0 g/dL Red Cell Distribution Width 18.6 H 11.8-14.3 % Platelet Count 287 140-450 10^3/uL Mean Platelet Volume 11.6 H 6.9-10.8 fL Neutrophils (%) (Auto) 97.9 H 37.0-80.0 % Lymphocytes (%) (Auto) 0.9 L 10.0-50.0 % Monocytes (%) (Auto) 0.7 0.0-12.0 % Eosinophils (%) (Auto) 0.0 0.0-7.0 % Basophils (%) (Auto) 0.5 0.0-2.0 % Neutrophils # (Auto) 26.2 H 1.6-8.6 10 ^3/uL Lymphocytes # (Auto) 0.2 L 0.4-5.4 10 ^3/uL Monocytes # (Auto) 0.2 0-1.3 10 ^3/uL Eosinophils # (Auto) 0 0-0.8 10 ^3/uL Basophils # (Auto) 0.1 0-0.2 10 ^3/uL Nucleated Red Blood Cells 1.3 % Lactic Acid Level 0.7 0.4-2.0 mmol/L Total Bilirubin < 0.2 L 0.2-1.0 mg/dL Aspartate Amino Transferase (AST) 94 H <34 U/L Alanine Aminotransferase (ALT) 66 H 7-40 U/L Alkaline Phosphatase 382 H 46-116 U/L B-Type Natriuretic Peptide 528.66 0-100 pg/mL Total Protein 6.9 5.7-8.2 g/dL Albumin 3.2 3.2-4.8 g/dL Beta-Hydroxybutyric Acid 0.515 H < 0.4 mmol/L Assessment/Plan Assessment/Plan Acute metabolic encephalopathy likely due to sepsis, uremia H/o CVA - IV antibiotics - IV fluids Sepsis likely due to pneumonia, UTI Pneumonia likely due to Gram +/- bacteria, possible aspiration Indwelling Lindsay's catheter long-term, UTI - broad-spectrum IV antibiotics vancomycin and Zosyn - aggressive fluid replacement - change Lindsay catheter - sputum cultures pending - urine cultures pending - blood cultures pending - COVID, influenza, MRSA screen pending - duo nebs q.6 hours, acetylcysteine q.6 hours LISANDRO on CKD stage 3 likely due VMN CKD stage 3 Hyperkalemia Hypernatremia Anion gap metabolic acidosis likely due to uremia - IV fluids - Lasix IV ( not used aggressively because patient was septic low blood pressure) - hyperkalemia treatment protocols given - ABG to be obtained, VBG shows metabolic acidosis with a base excess of -24.9 - 100 mEq of sodium bicarb NSTEMI likely type 2 due to demand ischemia - echo from December 2024 shows LVEF 64% Hyperglycemia with a history of diabetes mellitus Probable starvation ketosis - currently patient NPO - mild ISS - D5 half NS IV fluid Microcytic normochromic anemia Severe anemia - 1 unit of PRBC transfused - repeat CBC, if less than 7 transfuse another PRBC PUD prophylaxis: Protonix DVT prophylaxis: Currently held because of low hemoglobin Goals of care discussed with the patient's primary RN. Full code Plan discussed with Dr. Valencia Plan discussed with: Other (RN margaret) My Orders Orders - PAT COWART RESIDENT Procedure Category Date Status Time Admit ADMIT 05/09/25 Transmitted 23:01 Nitroglycerin PHA 05/09/25 In Process Sublingual (Ntrostat 23:15 Morphine Sulfate PHA 05/09/25 In Process Injection 23:15 Oxygen By Nasal RT 05/09/25 Transmitted Cannula 23:01 Stat Ekg For Chest TERESA 05/09/25 In Process Pain 23:01 Notify Md Of Changes TERESA 05/09/25 In Process From Base 23:01 Hi Ranger Operator For TERESA 05/09/25 In Process 24 Hours 23:01 Emergency Dysrhythmia TERESA 05/09/25 In Process Protocol 23:01 Rhythm Strips Once TERESA 05/09/25 In Process Every Shift 23:01 Urinalysis LAB 05/09/25 Logged 23:01 Urine Bacterial JENNIFER 05/09/25 Logged Culture 23:01 Ok To Change Lindsay ORDERS 05/09/25 Transmitted 23:01 Respiratory Culture JENNIFER 05/09/25 Logged W/ Gs 23:01 Albuterol Medneb PHA 05/10/25 In Process (Ventolin Medneb) 00:00 Acetylcysteine PHA 05/10/25 In Process Inhalation 20% 00:00 Rapid Influenza A&B LAB 05/09/25 Logged 23:01 Covid19 Antigen Mikaela LAB 05/09/25 Logged Mrsa Screen JENNIFER 05/09/25 Logged 23:01 Vancomycin Per PHA 05/09/25 Pending Pharmacy 23:15 Piperacillin-Tazob PHA 05/10/25 In Process 3.375gm (Zosyn 3.375g 10:00 Urine Sodium LAB 05/09/25 Logged 23:01 Stool Occult Blood LAB 05/09/25 Logged 23:01 *Dr. Garfield Saunders CONS 05/09/25 Transmitted -[place] 23:01 Strict Aspiration TERESA 05/09/25 In Process Precautions 23:23 Urine LAB 05/09/25 Logged Protein/Creatinine 23:01 Strict I&O ED NURSING 05/09/25 Transmitted Abg W/ Co-Ox RT 05/10/25 Logged 00:12 Date of Service: May 09, 2025 Billing Provider: VALENCIA,IMRAN M MD Common Visit Codes: [id number] INP/OBS CARE (HIGH) Secondary Visit Codes: [id number] CARE PLAN 30 MINUTES PAT COWART RESIDENT May 10, 2025 02:15
[2025-05-10] MEDS ORDERED: SODIUM CHLORIDE 0.9% 1,000 ML IV SCH (02:30)
[2025-05-10] MEDS: InsuLIN REG 1unit/0.01ml Soln (100units/ml) SC SCH (02:37)
[2025-05-10] MEDS: SODIUM CHLORIDE 0.9% 1,000 ML IV SCH (02:40)
[2025-05-10 04:13] LABS: COVID19 ANTIGEN SOFIA FIA NEGATIVE (NEGATIVE)
[2025-05-10 05:17] LABS: Urine Protein, UAD 2+ (Negative); Urine WBC Clumps PRESENT /hpf (None Seen)
[2025-05-10 05:18] LABS: Protein, Urine 449.0 mg/dL (1-14)
[2025-05-10] MEDS: MORPHINE SULFATE INJ 2 MG/ml SYRG IV PRN (05:18)
--- NOTE | 2025-05-10 05:32 | ECG ---
[facility] Test Date: 2025-05-09 Test Time: 19:15:13 Pat Name: SARAH BETH VARGAS Department: ED Room: [address] [place] [address] Gender: M Pattern Clerk: YISEL : 1980 Requested By: SAVANAH PATTON Order Number: [id number] Reading MD: Balwinder Gama Measurements Intervals [place] Rate: 102 P: -41 SC: 165 QRS: -32 QRSD: 131 T: 62 QT: 389 QTc: 507 Interpretive Statements Sinus tachycardia Nonspecific intraventricular conduction delay Electronically Signed On 05-11-2025 17:32:04 PDT by Balwinder Gama Please click the below link to view image of tracing.
[2025-05-10 06:15] LABS: Anion Gap 16.00001 (5-15)
[2025-05-10 06:21] LABS: BUN/Creatinine Ratio 25.4 (10.0-20.0)
[2025-05-10 06:32] LABS: Calcium 7.1 mg/dL (8.7-10.4); Chloride 127 mmol/L (98-107); Glucose 72 mg/dL (74-106); Sodium 153 mmol/L (136-145)
[2025-05-10 06:34] LABS: Blood Urea Nitrogen 120 mg/dL (9-23); Carbon Dioxide < 10 mmol/L (20-31); Potassium 5.8 mmol/L (3.5-5.1)
[2025-05-10] MEDS: SODIUM BICARB 8.4% 50Meq/50ml SYR INJ IV ONE (08:35)
[2025-05-10] MEDS: D5W/SOD CHL 0.45% 1,000 ML IV ONE (08:36)
[2025-05-10 09:12] LABS: Base Excess -17.7 mmol/L (-2.0-3.0)
[2025-05-10] MEDS ORDERED: INSULIN LANTUS (GLARGINE) 1 /0.01ml (100units/ml) SC SCH (10:00)
[2025-05-10 10:43] LABS: Hematocrit 22.1 % (41.0-53.0); Mean Corpuscular Hemoglobin 28.7 pg (28.0-32.0); Mean Corpuscular Volume 93.8 fL (80.0-100.0); Nucleated Red Blood Cells % 2.0 %
[2025-05-10 11:17] LABS: Hemoglobin 6.8 g/dL (13.5-17.5)
[2025-05-10] MEDS: PANTOPRAZOLE 40 MG/10 ML VIAL INJ IV SCH (11:54)
[2025-05-10] MEDS: PIPERACILLIN-TAZOB 3.375GM 100 ML IV SCH (11:55)
[2025-05-10] MEDS: SODIUM BICARB 50mEq/50ml Vial 150 ML in D5W 5% 1,000 ML IV STA (12:26)
--- NOTE | 2025-05-10 13:23 | DVHINCON2 ---
Date of service: May 10, 2025 Reason for Consultation LISANDRO History of Present Illness 44 years old male with past medical history on residual deficit, Chronic kidney disease, diabetes, urethral stricture, recurrent UTIs, presented with chief complaints of altered mental status patient seen and examined in emergency room with RN bedside he does have a Lindsay catheter Unable to obtain HPI Patient found to have low hemoglobin 5.9 received a PRBC transfusion Acidotic on ABG, white count remains elevated Baseline creatinine 2.4 in December 2024 Past Medical History per hpi Allergies: Coded Allergies: NO KNOWN ALLERGIES (Unverified , 07/19/23) Home Meds Active Scripts Sodium Bicarbonate (Sodium Bicarbonate) 650 Mg Tab, 650 MG PO TID for 30 Days, #90 TAB Prov:DAMIÁNRAÚL M NATIONAL SALES DIRECTOR 01/11/25 Furosemide (Furosemide) 40 Mg Tab, 40 MG PO DAILY for 30 Days, #30 TAB Prov:RAÚL STEEL Sherri NATIONAL SALES DIRECTOR 01/11/25 Atorvastatin Calcium (ATORVASTATIN CALCIUM) 20 Mg Tab, 20 MG PO HS for 30 Days, #30 TAB Prov:VINITARAÚL MARTINEZ Sherri NATIONAL SALES DIRECTOR 01/11/25 Reported Medications Tamsulosin Hcl (Tamsulosin Hcl) 0.4 Mg Cap, 1 CAP PO DAILY for 30 Days, #30 12/31/24 Lisinopril (Lisinopril) 40 Mg Tab, 1 TAB PO DAILY for 30 Days, #30 12/31/24 Amlodipine Besylate (Amlodipine Besylate) 10 Mg Tab, 1 TAB PO DAILY for 30 Days, #30 12/31/24 Metformin Hydrochloride (Metformin Hcl) 500 Mg Tab, 1 TAB PO DAILY for 30 Days, #30 TAKE 1 TABLET BY MOUTH ONCE DAILY WITH BREAKFAST. 12/31/24 Glipizide (Glipizide Er) 5 Mg Tab, 1 TAB PO DAILY for 30 Days, #30 TAKE 1 TABLET BY MOUTH ONCE DAILY WITH BREAKFAST. 12/31/24 Current Medications Current Medications Medications (Trade) Dose Ordered Sig/Wai Route PRN Reason Start Time Stop Time Status Last Admin Sodium Chloride 1,000 ml @ 150 mls/hr Q6H40M IV 05/10/25 02:30 05/10/25 01:58 DC Insulin Human (Reg)/Sodium Chloride 100 ml @ 0.5 mls/hr Q24H IV 05/09/25 20:30 05/09/25 23:55 DC 05/09/25 22:29 Dextrose 50 ml UD PRN IV SEE CURRENT ALGORITHM or SCALE 05/09/25 20:30 05/10/25 02:05 DC Diagnostic Test (Pha) (Accu-Chek Comfort Curve T) 1 strip Q90MIN 05/09/25 21:00 05/10/25 02:05 DC 05/10/25 02:02 Insulin Glargine (Lantus) 15 units DAILY SC 05/10/25 10:00 05/10/25 07:01 DC Nitroglycerin (Ntrostat Sublingual) 0.4 mg Q5MINP PRN SL FOR CHEST PAIN 05/09/25 23:15 Morphine Sulfate 2 mg Q30M PRN IV FOR CHEST PAIN 05/09/25 23:15 Albuterol (Ventolin Medneb) 2.5 mg Q6HR NEB 05/10/25 00:00 05/10/25 12:18 Acetylcysteine (Mucomyst Inhalation 20%) 200 mg Q6HR NEB 05/10/25 00:00 05/10/25 12:18 Vancomycin HCl 0 ml @ 0 mls/hr UD IV 05/09/25 23:15 Piperacillin Sod/ Tazobactam Sod 100 ml @ 25 mls/hr Q12HR IV 05/10/25 10:00 05/10/25 11:55 Sodium Bicarbonate 100 ml ONCE STAT IV 05/09/25 23:01 05/09/25 23:32 DC 05/10/25 00:33 Sodium Chloride 1,000 ml @ 100 mls/hr Q10H IV 05/10/25 01:45 05/10/25 06:57 DC 05/10/25 02:40 Diagnostic Test (Pha) (Accu-Chek Comfort Curve T) 1 strip Q6HR 05/10/25 02:00 05/10/25 12:25 Insulin Human Regular (InsuLIN R) Q6HR SC 05/10/25 02:00 05/10/25 02:37 Dextrose 50 ml UD PRN IV Blood Sugar LESS THAN 60 05/10/25 01:45 Pantoprazole Sodium (Protonix) 40 mg DAILY IV 05/10/25 10:00 05/10/25 11:54 Morphine Sulfate 1 mg Q6HP PRN IV SEVERE PAIN (7-10 PAIN SCALE) 05/10/25 05:15 05/10/25 05:18 Sodium Bicarbonate 150 ml/Dextrose 1,150 ml @ 100 mls/hr [id number] STAT IV 05/10/25 09:30 05/10/25 20:59 05/10/25 12:26 Family History: FH: diabetes mellitus FHx: stroke Review of Systems Unable to obtain H&P Exam Vital Signs/I&O Vital Sign Date Time Temp Pulse Resp B/P (MAP) Pulse Ox O2 Delivery O2 Flow Rate FiO2 05/10/25 13:11 95 05/10/25 12:27 18 100 05/10/25 12:26 Room Air* 0 21 05/10/25 08:18 124/74 05/10/25 03:21 97.9 97.9 Intake and Output 05/09/25 05/10/25 19:00 07:00 Intake Total 1200 ml Output Total 0 ml Balance 1200 ml Intake Oral 0 ml IV Total 300 ml Blood Product 600 ml Other 300 ml Output Urine Total 0 ml Physical Exam General-not in any distress HEENT-normocephalic, Respiratory-fair air entry bilateral, no rhonchi, no wheeze [id number] heard, no murmurs appreciated Abdominal-soft, nontender, nondistended Musculoskeletal-no pedal edema, no calf tenderness Genitourinary-deferred Neuro-not awake not alert Psychiatric-not agitated, cooperative, Labs/Diagnostic Data Labs/Diagnostic Data Laboratory Tests Test 05/10/25 12:52 05/10/25 12:15 05/10/25 12:14 05/10/25 10:23 Range/Units POC Glucose 121 H 23 *L 24 *L 70-106 mg/dl White Blood Count 20.8 H 4.4-10.8 10^3/uL Red Blood Count 2.36 L 4.5-5.90 10^6/uL Hemoglobin 6.8 #*L 13.5-17.5 g/dL Hematocrit 22.1 #L 41.0-53.0 % Mean Corpuscular Volume 93.8 # 80.0-100.0 fL Mean Corpuscular Hemoglobin 28.7 28.0-32.0 pg Mean Corpuscular Hemoglobin Concent 30.6 L 32.0-36.0 g/dL Red Cell Distribution Width 19.2 H 11.8-14.3 % Platelet Count 228 140-450 10^3/uL Mean Platelet Volume 11.3 H 6.9-10.8 fL Neutrophils (%) (Auto) 91.9 H 37.0-80.0 % Lymphocytes (%) (Auto) 2.8 L 10.0-50.0 % Monocytes (%) (Auto) 5.3 0.0-12.0 % Eosinophils (%) (Auto) 0.0 0.0-7.0 % Basophils (%) (Auto) 0.0 0.0-2.0 % Neutrophils # (Auto) 19.1 H 1.6-8.6 10 ^3/uL Lymphocytes # (Auto) 0.6 0.4-5.4 10 ^3/uL Monocytes # (Auto) 1.1 0-1.3 10 ^3/uL Eosinophils # (Auto) 0 0-0.8 10 ^3/uL Basophils # (Auto) 0 0-0.2 10 ^3/uL Nucleated Red Blood Cells 2.0 % Test 05/10/25 08:58 05/10/25 05:46 05/10/25 04:45 05/10/25 02:49 Range/Units Blood Gas Specimen Type Arterial Blood Gas Sample Site Right radial Blood Gas Patient Temperature 37.0 Arterial Blood Date Drawn [id number] Arterial Blood pH 7.181 *L 7.350-7.450 Arterial Blood Partial Pressure CO2 24.8 L 35.0-48.0 mmHg Arterial Blood Partial Pressure O2 65.1 L 83.0-108.0 mmHg Arterial Blood HCO3 9.1 L 21.0-28.0 mmol/L Arterial Blood Oxygen Saturation 87.0 L 94.0-98.0 % Arterial Blood Base Excess -17.7 L -2.0-3.0 mmol/L Arterial Blood Oxyhemoglobin 85.7 L 94.0-98.0 % Arterial Blood Carboxyhemoglobin 1.0 0.5-1.5 % Arterial Blood Methemoglobin 0.5 0.0-1.5 % Alberto Test Yes Blood Gas Total Hemoglobin 6.90 *L 13.5-17.5 g/dL Blood Gas Modality Room air FiO2 % 21.0 Blood Gas Critical Value Read Back Yes Blood Gas Notified Whom aren Claros Blood Gas Notified Time [id number] Blood Gas Notified By Nyla baptiste Sodium Level 153 #H 136-145 mmol/L Potassium Level 5.8 *H 3.5-5.1 mmol/L Chloride Level 127 H 98-107 mmol/L Carbon Dioxide Level < 10 *L 20-31 mmol/L Anion Gap 16.12031 H 5-15 Blood Urea Nitrogen 120 #*H 9-23 mg/dL Creatinine 4.72 H 0.700-1.30 mg/dL Glomerular Filtration Rate Calc 15 >90 mL/min BUN/Creatinine Ratio 25.4 H 10.0-20.0 Serum Glucose 72 #L 74-106 mg/dL Calcium Level 7.1 L 8.7-10.4 mg/dL Urine Color Colorless Yellow Urine Clarity Ex.turbid Clear Urine pH 6.0 5.0-9.0 Urine Specific [place] 1.012 1.001-1.035 Urine Protein 2+ H Negative Urine Ketones Negative Negative Urine Blood 3+ H Negative /uL Urine Nitrite Negative Negative Urine Bilirubin Negative Negative Urine Urobilinogen Normal Negative mg/dL Urine Leukocyte Esterase 3+ Negative /uL Urine RBC 854 0 - 3 /hpf Urine WBC Clumps Present None Seen /hpf Urine Microscopic WBC 665 H 0-3 /HPF Urine Squamous Epithelial Cells None seen <5 /hpf Urine Bacteria None seen None Seen /hpf Urine Creatinine 15.58 L 30.0-125.0 mg/dL Urine Protein/Creatinine Ratio 28.82 Urine Sodium 108 40-220 mmol/L Urine Glucose 1+ H Normal mg/dL Urine Total Protein 449.0 H 1-14 mg/dL Influenza Type A Antigen Negative Negative Influenza Type B Antigen Negative Negative SARS-CoV-2 Antigen (Rapid) Negative NEGATIVE Test 05/09/25 23:57 05/09/25 23:49 05/09/25 22:33 05/09/25 22:27 Range/Units POC Glucose 262 H 276 H 70-106 mg/dl Blood Gas Specimen Type Venous Blood Gas Sample Site Left radial Blood Gas Patient Temperature 37.0 Arterial Blood Date Drawn [id number] Alberto Test Yes Venous Blood pH 7.003 *L 7.320-7.430 Venous Blood pCO2 at Patient Temp 16.6 L 38.0-54.0 mmHg Venous Blood pO2 at Patient Temp 49.3 H 23.0-48.0 mmHg Venous Blood HCO3 4.0 L 22.0-29.0 mmol/L Venous Bld O2 Saturation (Measured) 66.0 60.0-85.0 % Venous Blood Base Excess -24.9 L -2.0-3.0 mmol/L Venous Blood Total Hemoglobin 5.5 L 13.5-17.5 g/dL Venous Blood Oxyhemoglobin 65.0 0.0-79.0 % Venous Blood Carboxyhemoglobin 0.4 L 0.5-1.5 % Venous Blood Methemoglobin 1.1 0.0-1.5 % Blood Gas Modality Room air Blood Gas Spontaneous Rate 26 FiO2 % 21.0 Blood Gas Critical Value Read Back Yes Blood Gas Notified Whom tony Cowart md resident Blood Gas Notified Time [id number] Blood Gas Notified By Troponin I High Sensitivity 92 *H </=54 ng/L Test 05/09/25 22:01 05/09/25 21:18 05/09/25 20:44 05/09/25 20:06 Range/Units POC Glucose 280 H 274 H 70-106 mg/dl Sodium Level 146 H 136-145 mmol/L Potassium Level 7.6 *H 3.5-5.1 mmol/L Chloride Level 120 H 98-107 mmol/L Carbon Dioxide Level < 10 *L 20-31 mmol/L Anion Gap 16.36516 H 5-15 Blood Urea Nitrogen 153 *H 9-23 mg/dL Creatinine 5.70 H 0.700-1.30 mg/dL Glomerular Filtration Rate Calc 12 >90 mL/min BUN/Creatinine Ratio 26.8 H 10.0-20.0 Serum Glucose 287 H 74-106 mg/dL Calcium Level 7.9 L 8.7-10.4 mg/dL Troponin I High Sensitivity 89 *H </=54 ng/L Blood Gas Specimen Type Venous Blood Gas Sample Site Vbg - n/a Blood Gas Patient Temperature 37.0 Arterial Blood Date Drawn [id number] Alberto Test Yes Venous Blood pH 7.093 *L 7.320-7.430 Venous Blood pCO2 at Patient Temp 17.0 L 38.0-54.0 mmHg Venous Blood pO2 at Patient Temp 49.1 H 23.0-48.0 mmHg Venous Blood HCO3 5.1 L 22.0-29.0 mmol/L Venous Bld O2 Saturation (Measured) 67.7 60.0-85.0 % Venous Blood Base Excess -22.7 L -2.0-3.0 mmol/L Venous Blood Total Hemoglobin 6.4 L 13.5-17.5 g/dL Venous Blood Oxyhemoglobin 66.9 0.0-79.0 % Venous Blood Carboxyhemoglobin 0.6 0.5-1.5 % Venous Blood Methemoglobin 0.6 0.0-1.5 % Blood Gas Modality Room air FiO2 % 21.0 Blood Gas Critical Value Read Back Yes Blood Gas Notified Whom sherri Plasencia md Blood Gas Notified Time [id number] Blood Gas Notified By Test 05/09/25 19:30 Range/Units White Blood Count 26.7 H 4.4-10.8 10^3/uL Red Blood Count 1.99 L 4.5-5.90 10^6/uL Hemoglobin 5.9 *L 13.5-17.5 g/dL Hematocrit 19.9 L 41.0-53.0 % Mean Corpuscular Volume 100.2 H 80.0-100.0 fL Mean Corpuscular Hemoglobin 29.6 28.0-32.0 pg Mean Corpuscular Hemoglobin Concent 29.5 L 32.0-36.0 g/dL Red Cell Distribution Width 18.6 H 11.8-14.3 % Platelet Count 287 140-450 10^3/uL Mean Platelet Volume 11.6 H 6.9-10.8 fL Neutrophils (%) (Auto) 97.9 H 37.0-80.0 % Lymphocytes (%) (Auto) 0.9 L 10.0-50.0 % Monocytes (%) (Auto) 0.7 0.0-12.0 % Eosinophils (%) (Auto) 0.0 0.0-7.0 % Basophils (%) (Auto) 0.5 0.0-2.0 % Neutrophils # (Auto) 26.2 H 1.6-8.6 10 ^3/uL Lymphocytes # (Auto) 0.2 L 0.4-5.4 10 ^3/uL Monocytes # (Auto) 0.2 0-1.3 10 ^3/uL Eosinophils # (Auto) 0 0-0.8 10 ^3/uL Basophils # (Auto) 0.1 0-0.2 10 ^3/uL Nucleated Red Blood Cells 1.3 % Sodium Level 147 H 136-145 mmol/L Potassium Level 8.0 *H 3.5-5.1 mmol/L Chloride Level 121 H 98-107 mmol/L Carbon Dioxide Level < 10 *L 20-31 mmol/L Anion Gap 16.69340 H 5-15 Blood Urea Nitrogen 157 *H 9-23 mg/dL Creatinine 5.69 H 0.700-1.30 mg/dL Glomerular Filtration Rate Calc 12 >90 mL/min BUN/Creatinine Ratio 27.6 H 10.0-20.0 Serum Glucose 277 H 74-106 mg/dL Lactic Acid Level 0.7 0.4-2.0 mmol/L Calcium Level 7.3 L 8.7-10.4 mg/dL Total Bilirubin < 0.2 L 0.2-1.0 mg/dL Aspartate Amino Transferase (AST) 94 H <34 U/L Alanine Aminotransferase (ALT) 66 H 7-40 U/L Alkaline Phosphatase 382 H 46-116 U/L Troponin I High Sensitivity 81 *H </=54 ng/L B-Type Natriuretic Peptide 528.66 0-100 pg/mL Total Protein 6.9 5.7-8.2 g/dL Albumin 3.2 3.2-4.8 g/dL Beta-Hydroxybutyric Acid 0.515 H < 0.4 mmol/L Microbiology Date/Time Source Procedure Growth Status 05/10/25 02:49 Nose MRSA Screen - Final Methicillin Resistant S.aureus Complete Assessment Acute kidney injury likely acute tubular necrosis in the setting of severe sepsis Severe sepsis Metabolic acidosis Encephalopathy Recommendations Bicarb based IV fluid as ordered Renally dose antibiotics Renal function slightly better since admission Baseline creatinine 2.4 in December 2024 Strict Is&Os if There is no significant improvement in renal function in next 24 to 48 hours we will consider renal replacement therapy Plan discussed with: ROSE Bunn MD May 10, 2025 13:23
[2025-05-10 14:34] LABS: Glucose 74 mg/dL (74-106)
[2025-05-10 14:35] LABS: BUN/Creatinine Ratio 30.5 (10.0-20.0)
[2025-05-10] MEDS: SODIUM BICARB 8.4% 50Meq/50ml SYR Vial IV ONE (14:39)
[2025-05-10 14:42] LABS: Chloride 124 mmol/L (98-107); Sodium 154 mmol/L (136-145)
[2025-05-10 14:43] LABS: Anion Gap 20 (5-15); Calcium 7.3 mg/dL (8.7-10.4); Carbon Dioxide 10 mmol/L (20-31); Potassium 5.8 mmol/L (3.5-5.1)
[2025-05-10 14:44] LABS: Blood Urea Nitrogen 148 mg/dL (9-23)
--- NOTE | 2025-05-10 15:13 | DVH ---
INDICATION: LOW URINE OUTPUT TECHNIQUE: Multiple real-time sonographic images of the kidneys and bladder were obtained. COMPARISON: US KIDNEY on DOS: 01/04/25, US KIDNEY on DOS: 06/08/24 FINDINGS: The right kidney measures 10 cm in length, which is normal in size. No hydronephrosis. The left kidney measures 11 cm in length, which is normal in size. No hydronephrosis. Increased bilateral renal echogenicity Multiple subcentimeter cysts are noted. IMPRESSION: Bilateral medical renal disease.
[2025-05-10] MEDS: BUMETANIDE 2.5mg/10ml (0.25 mg/ml) INJ IV ONE (15:44)
[2025-05-10] MEDS: DEXTROSE (50%) 50ML SYRG IV PRN (16:22)
[2025-05-10 16:29] LABS: Anion Gap 20 (5-15); BUN/Creatinine Ratio 28.5 (10.0-20.0); Potassium 5.0 mmol/L (3.5-5.1)
[2025-05-10 16:34] LABS: Alanine Aminotransferase 398 U/L (7-40); Albumin 2.7 g/dL (3.2-4.8); Alkaline Phosphatase 478 U/L (46-116); Bilirubin, Total < 0.2 mg/dL (0.2-1.0); Calcium 6.5 mg/dL (8.7-10.4); Carbon Dioxide 14 mmol/L (20-31); Chloride 123 mmol/L (98-107); Sodium 157 mmol/L (136-145); Total Protein 5.7 g/dL (5.7-8.2)
[2025-05-10 16:37] LABS: Blood Urea Nitrogen 133 mg/dL (9-23); Glucose 49 mg/dL (74-106)
--- NOTE | 2025-05-10 18:12 | DVHINCON2 ---
Date of service: May 10, [address] Faustin Reason for Consultation Acute respiratory failure History of Present Illness History Source: Patient, RN Notes, MD Notes Exam Limitations: Clinical condition HPI Patient is a 44-year old gentleman with a history of CVA with deficits who presented from a board and care who presented with altered mental status and lethargy. Was seen in the emergency room where he was found to be hypotensive raising the concern for sepsis and the patient was admitted for further workup. Serial ABG's were reviewed and revealed metabolic acidosis, patient was given 2 amps sodium bicarb and started on bicarb drip. Chest x-ray demonstrates bilateral opacities consistent with pneumonia and pulmonology was consulted to assist in management. Home Meds Active Scripts Sodium Bicarbonate (Sodium Bicarbonate) 650 Mg Tab, 650 MG PO TID for 30 Days, #90 TAB Prov:RAÚL STEEL J2EE APPLICATION DEVELOPER 01/11/25 Furosemide (Furosemide) 40 Mg Tab, 40 MG PO DAILY for 30 Days, #30 TAB Prov:RAÚL STEEL J2EE APPLICATION DEVELOPER 01/11/25 Atorvastatin Calcium (ATORVASTATIN CALCIUM) 20 Mg Tab, 20 MG PO HS for 30 Days, #30 TAB Prov:DAMIÁNRAÚL M J2EE APPLICATION DEVELOPER 01/11/25 Reported Medications Tamsulosin Hcl (Tamsulosin Hcl) 0.4 Mg Cap, 1 CAP PO DAILY for 30 Days, #30 12/31/24 Lisinopril (Lisinopril) 40 Mg Tab, 1 TAB PO DAILY for 30 Days, #30 12/31/24 Amlodipine Besylate (Amlodipine Besylate) 10 Mg Tab, 1 TAB PO DAILY for 30 Days, #30 12/31/24 Metformin Hydrochloride (Metformin Hcl) 500 Mg Tab, 1 TAB PO DAILY for 30 Days, #30 TAKE 1 TABLET BY MOUTH ONCE DAILY WITH BREAKFAST. 12/31/24 Glipizide (Glipizide Er) 5 Mg Tab, 1 TAB PO DAILY for 30 Days, #30 TAKE 1 TABLET BY MOUTH ONCE DAILY WITH BREAKFAST. 12/31/24 Past Medical History Cardiac: No pertinent Hx Pulmonary: No pertinent Hx Central Nervous System: CVA GI: No pertinent Hx Hemotology/Oncology: No pertinent Hx Hepatobiliary: No pertinent Hx Psychiatric: No pertinent Hx Musculoskeletal: No pertinent Hx Rheumotologic: No pertinent Hx Infectious Disease: No peritnent Hx ENT: No pertinent Hx Renal/: No pertinent Hx Endocrine: No pertinent Hx Dermatology: No pertinent Hx Past Surgical History: No pertinent Hx Family History: CVA, DM Patient Family History: FH: diabetes mellitus FHx: stroke Smoker: No Hx (Negative) Alocohol: None Drugs: None Lives with: Other (board and care ) Domestic Violence: Neg Review of Systems Constitutional: No symptom reported Ears, Nose, & Throat: No symptom reported Eyes: No symptom reported Pulmonary/Respiratory: Dyspnea Cardiovascular: No symptom reported Gastrointestinal: No symptom reported Genitourinary: No symptom reported Musculoskeletal: No symptom reported Skin: No symptom reported Psychiatric: No symptom reported Endocrine: No symptom reported Hemotologic/Lymphatic: No symptom reported H&P Exam Vital Signs Vital Signs Date Time Temp Pulse Resp B/P (MAP) Pulse Ox O2 Delivery O2 Flow Rate FiO2 05/10/25 16:00 110 05/10/25 15:44 143/84 05/10/25 15:00 94.6 23 94.6 05/10/25 12:27 100 05/10/25 12:26 Room Air* 0 21 General Appeara: Well developed, Well nourished, Normal Appearance Head Exam: Normal inspection Neck Exam: Normal inspection, Non-tender, Normal alignment Eye Exam: bilateral eye Normal inspection, bilateral eye PERRL, bilateral eye EOMI Ear Exam: bilateral ear Auricle normal, bilateral ear Canal normal, bilateral ear TM normal Nasal Exam: Normal inspection Mouth: Normal Inspection Pulmonary/Respiratory: Normal inspection Cardiovascular/Chest: Normal inspection Peripheral Pulses: 4+ Radial (R), 4+ Radial (L), 4+ Brachial (R), 4+ Brachial (L) Abdominal Exam: Normal bowel sounds Labs/Xrays Labs Test 05/10/25 16:19 05/10/25 15:39 05/10/25 10:23 05/10/25 08:58 Range/Units POC Glucose 41 *L 70-106 mg/dl Sodium Level 157 H 136-145 mmol/L Potassium Level 5.0 3.5-5.1 mmol/L Chloride Level 123 H 98-107 mmol/L Carbon Dioxide Level 14 L 20-31 mmol/L Anion Gap 20 H 5-15 Blood Urea Nitrogen 133 #*H 9-23 mg/dL Creatinine 4.67 H 0.700-1.30 mg/dL Glomerular Filtration Rate Calc 15 >90 mL/min BUN/Creatinine Ratio 28.5 H 10.0-20.0 Serum Glucose 49 *L 74-106 mg/dL Lactic Acid Level 0.7 0.4-2.0 mmol/L Calcium Level 6.5 L 8.7-10.4 mg/dL Total Bilirubin < 0.2 L 0.2-1.0 mg/dL Aspartate Amino Transferase (AST) 468 H <34 U/L Alanine Aminotransferase (ALT) 398 H 7-40 U/L Alkaline Phosphatase 478 H 46-116 U/L Total Protein 5.7 5.7-8.2 g/dL Albumin 2.7 L 3.2-4.8 g/dL White Blood Count 20.8 H 4.4-10.8 10^3/uL Red Blood Count 2.36 L 4.5-5.90 10^6/uL Hemoglobin 6.8 #*L 13.5-17.5 g/dL Hematocrit 22.1 #L 41.0-53.0 % Mean Corpuscular Volume 93.8 # 80.0-100.0 fL Mean Corpuscular Hemoglobin 28.7 28.0-32.0 pg Mean Corpuscular Hemoglobin Concent 30.6 L 32.0-36.0 g/dL Red Cell Distribution Width 19.2 H 11.8-14.3 % Platelet Count 228 140-450 10^3/uL Mean Platelet Volume 11.3 H 6.9-10.8 fL Neutrophils (%) (Auto) 91.9 H 37.0-80.0 % Lymphocytes (%) (Auto) 2.8 L 10.0-50.0 % Monocytes (%) (Auto) 5.3 0.0-12.0 % Eosinophils (%) (Auto) 0.0 0.0-7.0 % Basophils (%) (Auto) 0.0 0.0-2.0 % Neutrophils # (Auto) 19.1 H 1.6-8.6 10 ^3/uL Lymphocytes # (Auto) 0.6 0.4-5.4 10 ^3/uL Monocytes # (Auto) 1.1 0-1.3 10 ^3/uL Eosinophils # (Auto) 0 0-0.8 10 ^3/uL Basophils # (Auto) 0 0-0.2 10 ^3/uL Nucleated Red Blood Cells 2.0 % Blood Gas Specimen Type Arterial Blood Gas Sample Site Right radial Blood Gas Patient Temperature 37.0 Arterial Blood Date Drawn [id number] Arterial Blood pH 7.181 *L 7.350-7.450 Arterial Blood Partial Pressure CO2 24.8 L 35.0-48.0 mmHg Arterial Blood Partial Pressure O2 65.1 L 83.0-108.0 mmHg Arterial Blood HCO3 9.1 L 21.0-28.0 mmol/L Arterial Blood Oxygen Saturation 87.0 L 94.0-98.0 % Arterial Blood Base Excess -17.7 L -2.0-3.0 mmol/L Arterial Blood Oxyhemoglobin 85.7 L 94.0-98.0 % Arterial Blood Carboxyhemoglobin 1.0 0.5-1.5 % Arterial Blood Methemoglobin 0.5 0.0-1.5 % Alberto Test Yes Blood Gas Total Hemoglobin 6.90 *L 13.5-17.5 g/dL Blood Gas Modality Room air FiO2 % 21.0 Blood Gas Critical Value Read Back Yes Blood Gas Notified Whom aren Claros Blood Gas Notified Time [id number] Blood Gas Notified By Wet Room Worker bishop Ratliff 05/10/25 04:45 05/10/25 02:49 05/09/25 23:49 05/09/25 22:33 Range/Units Urine Color Colorless Yellow Urine Clarity Ex.turbid Clear Urine pH 6.0 5.0-9.0 Urine Specific [place] 1.012 1.001-1.035 Urine Protein 2+ H Negative Urine Ketones Negative Negative Urine Blood 3+ H Negative /uL Urine Nitrite Negative Negative Urine Bilirubin Negative Negative Urine Urobilinogen Normal Negative mg/dL Urine Leukocyte Esterase 3+ Negative /uL Urine RBC 854 0 - 3 /hpf Urine WBC Clumps Present None Seen /hpf Urine Microscopic WBC 665 H 0-3 /HPF Urine Squamous Epithelial Cells None seen <5 /hpf Urine Bacteria None seen None Seen /hpf Urine Creatinine 15.58 L 30.0-125.0 mg/dL Urine Protein/Creatinine Ratio 28.82 Urine Sodium 108 40-220 mmol/L Urine Glucose 1+ H Normal mg/dL Urine Total Protein 449.0 H 1-14 mg/dL Influenza Type A Antigen Negative Negative Influenza Type B Antigen Negative Negative SARS-CoV-2 Antigen (Rapid) Negative NEGATIVE Venous Blood pH 7.003 *L 7.320-7.430 Venous Blood pCO2 at Patient Temp 16.6 L 38.0-54.0 mmHg Venous Blood pO2 at Patient Temp 49.3 H 23.0-48.0 mmHg Venous Blood HCO3 4.0 L 22.0-29.0 mmol/L Venous Bld O2 Saturation (Measured) 66.0 60.0-85.0 % Venous Blood Base Excess -24.9 L -2.0-3.0 mmol/L Venous Blood Total Hemoglobin 5.5 L 13.5-17.5 g/dL Venous Blood Oxyhemoglobin 65.0 0.0-79.0 % Venous Blood Carboxyhemoglobin 0.4 L 0.5-1.5 % Venous Blood Methemoglobin 1.1 0.0-1.5 % Blood Gas Spontaneous Rate 26 Troponin I High Sensitivity 92 *H </=54 ng/L Test 05/09/25 19:30 Range/Units B-Type Natriuretic Peptide 528.66 0-100 pg/mL Beta-Hydroxybutyric Acid 0.515 H < 0.4 mmol/L Microbiology Date/Time Source Procedure Growth Status 05/10/25 02:49 Nose MRSA Screen - Final Methicillin Resistant S.aureus Complete Assessment/Plan Plan Impression Acute hypoxemic respiratory failure Altered mental status Pneumonia Sepsis Anemia Patient seen and examined in the ER Events Low oxygen requirements On 2 liters nasal cannula Hypotensive requiring IV fluids Chest x-ray reviewed Chest x-ray shows bilateral opacities consistent with pneumonia Labs reviewed BUN/Creatinine acutely elevated Sodium elevated at 157 Hypoglycemic, BGL 41 Anemia, hemoglobin 5.9 Serial ABG's reviewed Consistent with metabolic acidosis Sodium bicarb given IV push Started on bicarb drip D5W with 2 amps Management Supplemental oxygen Titrate to maintain sats 90% or above Incentive spirometry Broaden antibiotics Obtain cultures Bronchodilators Monitor renal function F/u nephrology, management deferred Monitor electrolytes Supplement as needed Monitor blood count Transfuse blood products as needed Pressors as needed for hemodynamic support DVT prophylaxis Critical care time 35 minutes Plan discussed with: Other (Rn) SYD JACOBS MD May 10, 2025 18:12
[2025-05-10 18:29] LABS: Base Excess -9.9 mmol/L (-2.0-3.0)
[2025-05-10] MEDS: SODIUM BICARB 50mEq/50ml Vial 100 ML in D5W 5% 1,000 ML IV SCH (23:49)
[2025-05-10] MEDS: MEROPENEM 500MG IVPB 50 ML IV SCH (23:52)
[2025-05-11] VITALS (33 sets, daily range): BP systolic 122–156; BP diastolic 76–112; PULSE 88–109; RESP 12–22; TEMP 95.7–98.6; O2SAT 94–99
[2025-05-11 05:21] LABS: Hematocrit 23.7 % (41.0-53.0); Hemoglobin 7.8 g/dL (13.5-17.5); Mean Corpuscular Hemoglobin 28.7 pg (28.0-32.0); Mean Corpuscular Volume 87.2 fL (80.0-100.0)
[2025-05-11 05:40] LABS: Anion Gap 20 (5-15); BUN/Creatinine Ratio 29.6 (10.0-20.0); Glucose 95 mg/dL (74-106); Potassium 5.0 mmol/L (3.5-5.1); Total Protein 5.9 g/dL (5.7-8.2)
[2025-05-11 05:41] LABS: Alanine Aminotransferase 349 U/L (7-40); Albumin 2.8 g/dL (3.2-4.8); Alkaline Phosphatase 433 U/L (46-116); Bilirubin, Total 0.2 mg/dL (0.2-1.0); Calcium 6.7 mg/dL (8.7-10.4); Carbon Dioxide 16 mmol/L (20-31); Chloride 119 mmol/L (98-107); Sodium 155 mmol/L (136-145)
[2025-05-11 05:42] LABS: Blood Urea Nitrogen 139 mg/dL (9-23)
[2025-05-11 06:43] LABS: Nucleated Red Blood Cells % 6.0 %; Total Cells Counted 100.0 (100)
--- NOTE | 2025-05-11 07:56 | DVHINCON2 ---
Date of service: May 11, 2025 History of Present Illness HPI Patient is a 44-year-old gentleman who presented with altered mental status/shortness of breath. He is at baseline poor historian. Information was obtained by reviewing the chart and communicating with staff. It seems that since arrival the patient was found to have severe sepsis and multiorgan dysfunction. He has been on supplemental oxygen. 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 Reportedly on arrival to Emergency room blood pressure was low on later improved. Cardiology is involved for cardiac aspects of care. There is no report of chest pain. Home Meds Active Scripts Sodium Bicarbonate (Sodium Bicarbonate) 650 Mg Tab, 650 MG PO TID for 30 Days, #90 TAB Prov:RAÚL STEEL TOBACCO PRIZER 01/11/25 Furosemide (Furosemide) 40 Mg Tab, 40 MG PO DAILY for 30 Days, #30 TAB Prov:VINITAARÚL MARTINEZ Angie TOBACCO PRIZER 01/11/25 Atorvastatin Calcium (ATORVASTATIN CALCIUM) 20 Mg Tab, 20 MG PO HS for 30 Days, #30 TAB Prov:VINITARAÚL MARTINEZ Angie TOBACCO PRIZER 01/11/25 Reported Medications Tamsulosin Hcl (Tamsulosin Hcl) 0.4 Mg Cap, 1 CAP PO DAILY for 30 Days, #30 12/31/24 Lisinopril (Lisinopril) 40 Mg Tab, 1 TAB PO DAILY for 30 Days, #30 12/31/24 Amlodipine Besylate (Amlodipine Besylate) 10 Mg Tab, 1 TAB PO DAILY for 30 Days, #30 12/31/24 Metformin Hydrochloride (Metformin Hcl) 500 Mg Tab, 1 TAB PO DAILY for 30 Days, #30 TAKE 1 TABLET BY MOUTH ONCE DAILY WITH BREAKFAST. 12/31/24 Glipizide (Glipizide Er) 5 Mg Tab, 1 TAB PO DAILY for 30 Days, #30 TAKE 1 TABLET BY MOUTH ONCE DAILY WITH BREAKFAST. 12/31/24 Past Medical History Others Past medical history reportedly includes old history of CVA with poor functional capacity, CKD, hypertension, hyperlipidemia, diabetes mellitus, repeated history of sepsis, history of urethral stricture and recurrent UTI, history of phimosis anemia and bed-bound at baseline. There was question if the patient has baseli ne history of diastolic heart failure Family History Patient is poor historian can not provide review of system/social history/family history. Patient Family History: FH: diabetes mellitus FHx: stroke Review of Systems All Other Systems Patient is poor historian can not provide review of system/social history/family history. H&P Exam Vital Signs Vital Signs Date Time Temp Pulse Resp B/P (MAP) Pulse Ox O2 Delivery O2 Flow Rate FiO2 05/11/25 06:10 102 18 97 05/11/25 06:00 Room Air* 0 21 05/11/25 06:00 98.4 143/95 (111) 209.1 Head Exam: Normal inspection Mouth: Normal Inspection Pulmonary/Respiratory: Rhonci Cardiovascular/Chest: Regular rate, Tachycardia, Systolic murmur Peripheral Pulses: 2+ carotid (R), 2+ carotid (L), 2+ femoral (R), 2+ femoral (L), 2+ dorsalis pedis (R), 2+ dorsalis pedis (L), 2+ Radial (R), 2+ Radial (L) Abdominal Exam: Soft, No hepatospenomegaly Labs/Xrays Labs Test 05/11/25 05:32 05/11/25 03:45 05/10/25 18:12 05/10/25 15:39 Range/Units POC Glucose 97 70-106 mg/dl White Blood Count 29.9 H 4.4-10.8 10^3/uL Red Blood Count 2.72 L 4.5-5.90 10^6/uL Hemoglobin 7.8 L 13.5-17.5 g/dL Hematocrit 23.7 L 41.0-53.0 % Mean Corpuscular Volume 87.2 # 80.0-100.0 fL Mean Corpuscular Hemoglobin 28.7 28.0-32.0 pg Mean Corpuscular Hemoglobin Concent 32.9 32.0-36.0 g/dL Red Cell Distribution Width 17.1 H 11.8-14.3 % Platelet Count 182 140-450 10^3/uL Mean Platelet Volume 12.0 H 6.9-10.8 fL Neutrophils (%) (Auto) 37.0-80.0 % Lymphocytes (%) (Auto) 10.0-50.0 % Monocytes (%) (Auto) 0.0-12.0 % Basophils (%) (Auto) 0.0-2.0 % Neutrophils # (Auto) 1.6-8.6 10 ^3/uL Lymphocytes # (Auto) 0.4-5.4 10 ^3/uL Monocytes # (Auto) 0-1.3 10 ^3/uL Differential Total Cells Counted 100.0 100 Neutrophils % (Manual) 88 H 37.0-80.0 Band Neutrophils % (Manual) 1 Lymphocytes % (Manual) 4 L 10.0-50.0 Monocytes % (Manual) 7 0-12 Eosinophils % (Manual) 0 0-7 Basophils % (Manual) 0 0.0-2.0 Metamyelocytes % (manual) 0 Myelocytes % (Manual) 0 Promyelocytes % (Manual) 0 Blast Cells % (Manual) 0 Nucleated Red Blood Cells 6.0 % Reactive Lymphocytes 0 Platelet Estimate [place] Large Platelets Few Poikilocytosis (manual) Slight Jennifer Cells Few Schistocytes Few Sodium Level 155 H 136-145 mmol/L Potassium Level 5.0 3.5-5.1 mmol/L Chloride Level 119 H 98-107 mmol/L Carbon Dioxide Level 16 L 20-31 mmol/L Anion Gap 20 H 5-15 Blood Urea Nitrogen 139 *H 9-23 mg/dL Creatinine 4.70 H 0.700-1.30 mg/dL Glomerular Filtration Rate Calc 15 >90 mL/min BUN/Creatinine Ratio 29.6 H 10.0-20.0 Serum Glucose 95 74-106 mg/dL Calcium Level 6.7 L 8.7-10.4 mg/dL Total Bilirubin 0.2 0.2-1.0 mg/dL Aspartate Amino Transferase (AST) 257 H <34 U/L Alanine Aminotransferase (ALT) 349 H 7-40 U/L Alkaline Phosphatase 433 H 46-116 U/L Total Protein 5.9 5.7-8.2 g/dL Albumin 2.8 L 3.2-4.8 g/dL Random Vancomycin Level 20.1 H 5-10 ug/mL Blood Gas Specimen Type Arterial Blood Gas Sample Site Left brachial Blood Gas Patient Temperature 37.0 Arterial Blood Date Drawn [id number] Arterial Blood pH 7.390 7.350-7.450 Arterial Blood Partial Pressure CO2 22.6 L 35.0-48.0 mmHg Arterial Blood Partial Pressure O2 74.0 L 83.0-108.0 mmHg Arterial Blood HCO3 13.4 L 21.0-28.0 mmol/L Arterial Blood Oxygen Saturation 93.6 L 94.0-98.0 % Arterial Blood Base Excess -9.9 L -2.0-3.0 mmol/L Arterial Blood Oxyhemoglobin 92.5 L 94.0-98.0 % Arterial Blood Carboxyhemoglobin 0.5 0.5-1.5 % Arterial Blood Methemoglobin 0.7 0.0-1.5 % Alberto Test N/a Blood Gas Total Hemoglobin 11.00 L 13.5-17.5 g/dL Blood Gas Modality Room air FiO2 % 21.0 Lactic Acid Level 0.7 0.4-2.0 mmol/L Test 05/10/25 10:23 05/10/25 08:58 05/10/25 04:45 05/10/25 02:49 Range/Units Eosinophils (%) (Auto) 0.0 0.0-7.0 % Eosinophils # (Auto) 0 0-0.8 10 ^3/uL Basophils # (Auto) 0 0-0.2 10 ^3/uL Blood Gas Critical Value Read Back Yes Blood Gas Notified Whom aren Clar[place] Blood Gas Notified Time [id number] Blood Gas Notified By [employer] Urine Color Colorless Yellow Urine Clarity Ex.turbid Clear Urine pH 6.0 5.0-9.0 Urine Specific [place] 1.012 1.001-1.035 Urine Protein 2+ H Negative Urine Ketones Negative Negative Urine Blood 3+ H Negative /uL Urine Nitrite Negative Negative Urine Bilirubin Negative Negative Urine Urobilinogen Normal Negative mg/dL Urine Leukocyte Esterase 3+ Negative /uL Urine RBC 854 0 - 3 /hpf Urine WBC Clumps Present None Seen /hpf Urine Microscopic WBC 665 H 0-3 /HPF Urine Squamous Epithelial Cells None seen <5 /hpf Urine Bacteria None seen None Seen /hpf Urine Creatinine 15.58 L 30.0-125.0 mg/dL Urine Protein/Creatinine Ratio 28.82 Urine Sodium 108 40-220 mmol/L Urine Glucose 1+ H Normal mg/dL Urine Total Protein 449.0 H 1-14 mg/dL Influenza Type A Antigen Negative Negative Influenza Type B Antigen Negative Negative SARS-CoV-2 Antigen (Rapid) Negative NEGATIVE Test 05/09/25 23:49 05/09/25 22:33 05/09/25 19:30 Range/Units Venous Blood pH 7.003 *L 7.320-7.430 Venous Blood pCO2 at Patient Temp 16.6 L 38.0-54.0 mmHg Venous Blood pO2 at Patient Temp 49.3 H 23.0-48.0 mmHg Venous Blood HCO3 4.0 L 22.0-29.0 mmol/L Venous Bld O2 Saturation (Measured) 66.0 60.0-85.0 % Venous Blood Base Excess -24.9 L -2.0-3.0 mmol/L Venous Blood Total Hemoglobin 5.5 L 13.5-17.5 g/dL Venous Blood Oxyhemoglobin 65.0 0.0-79.0 % Venous Blood Carboxyhemoglobin 0.4 L 0.5-1.5 % Venous Blood Methemoglobin 1.1 0.0-1.5 % Blood Gas Spontaneous Rate 26 Troponin I High Sensitivity 92 *H </=54 ng/L B-Type Natriuretic Peptide 528.66 0-100 pg/mL Beta-Hydroxybutyric Acid 0.515 H < 0.4 mmol/L Microbiology Date/Time Source Procedure Growth Status 05/10/25 02:49 Nose MRSA Screen - Final Methicillin Resistant S.aureus Complete 05/09/25 19:30 Blood Blood Culture - Preliminary NO GROWTH AFTER 24 HOURS OF INCUBATION. Resulted Assessment/Plan Plan Patient is a 44-year-old gentleman who presented with altered mental status/shortness of breath. He is at baseline poor historian. Information was obtained by reviewing the chart and communicating with staff. It seems that since arrival the patient was found to have severe sepsis and multiorgan dysfunction. He has been on supplemental oxygen. 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 Reportedly on arrival to Emergency room blood pressure was low on later improved. Cardiology is involved for cardiac aspects of care. There is no report of chest pain. Lying flat in bed. No JVD. Mucosa is pink and wet. Scattered rhonchi in the lungs is heard. Cardiac: Regular, tachycardic, no thrill. Systolic murmur 2/6 in apex is heard. Abdomen is soft. There is no gross mass. There is no hepatomegaly. Extremities do not reveal edema. Dorsalis pedis is 2+ bilateral Past medical history reportedly includes old history of CVA with poor functional capacity, CKD, hypertension, hyperlipidemia, diabetes mellitus, repeated history of sepsis, history of urethral stricture and recurrent UTI, history of phimosis anemia and bed-bound at baseline. There was question if the patient has baseline history of diastolic heart failure Echocardiogram of December 2024 revealed ejection fraction of 64%, trace MR/TR and right ventricular systolic pressure of 34 mm Hg. WBC: 26.7 - 20.8 - 29.9 Hemoglobin: 5.9 - 6.8 - 7.8 BNP: 528.66 Creatinine: 5.69 - 5.7 - 4.72 - 4.86 - 4.67 - 4.73 - 4.70 Potassium: 8.0 - 7.6 - 5.8 - 5.8 - 5.0 - 5.0 Sodium: 147 - 146 - 153 - 154 - 157 - 155 AST/ALT: 96/66 - 468/478 - 257/349 Troponin (high sensitive): 81 - 89 - 92 Chest x-ray reported: IMPRESSION: Findings suggest a mild degree of pulmonary edema which is decreased compared to the prior study on 01/11/2025. Pneumonia is considered less likely Renal ultrasound reported: IMPRESSION: Bilateral medical renal disease. EKG revealed sinus tachycardia Tele shows sinus tachycardia Patient is a 44-year-old gentleman who was at baseline bed-bound with old history of CVA who presented with altered mental status and shortness of breath. Presentation is in favor acute respiratory failure secondary to sepsis. Multiorgan failure secondary to sepsis is considered. Minimal increase in troponin is considered to reflect demand ischemia in a patient with questionable history of diastolic heart failure. In December 2024 ejection fraction in echocardiogram was 64% with no specific increase in right ventricular systolic pressure. Acute respiratory failure Sepsis Encephalopathy, metabolic versus toxic LISANDRO on CKD ATN Demand ischemia Hypernatremia Hypokalemia Anemia Cardiac suggestion for management: Manage on telemetry Fluid resuscitation as per Nephrology Follow-up electrolytes and kidney function tests and correct abnormalities Aspirin: 81 mg daily with old history of CVA is suggested DVT prophylaxis Request for Echocardiogram Management of sepsis/infection as per primary team Pulmonary follow-up for respiratory failure Nephrology evaluation for ATN/LISANDRO suggested Further evaluation and management depends on the above and clinical course Thank you for consultation A total of 75 minutes was spent reviewing the patient record, examining the patient, making a diagnostic and therapeutic plan, discussing this plan with medical personnel, following up on diagnostic studies and following the patient for clinical stability excluding any and all procedures. At least 50% of this time was spent in direct, [id number] contact. Thank you for allowing me to participate in this patient's care. Further recommendations will depend on patient's clinical course. Please do not hesitate to contact me if you have any questions or concerns. This medical document was created using electronic medical record system with [email or web address] computerized dictation system. Although this document has been carefully reviewed, there may still be some phonetic and typographical errors. These areas are purely typographical due to the imperfection of the software programs, and do not reflect any compromise in the patient's medical care. Plan discussed with: Other (nurse) FAN HAMEED MD May 11, 2025 07:56
--- NOTE | 2025-05-11 09:55 | DVH ---
CHEST RADIOGRAPH Indication: pneumonia Technique: Single frontal view of the chest was obtained Comparison: XY CHEST PORTABLE on DOS: 05/09/25, XY CHEST PORTABLE on DOS: 01/11/25, XY CHEST PORTABLE o n DOS: 01/10/25, XY CHEST XRAY 1 VIEW on DOS: 01/09/25, XY CHEST XRAY 1 VIEW on DOS: 01/08/25, XY CHEST PORTABLE on DOS: 05/09/25 FINDINGS: Lines and Tubes: None Lungs: Mild interstitial prominence with patchy [id number]-left perihilar airspace opacity. Pleura: No effusion. No pneumothorax. Cardiomediastinal contours: Mild enlargement of the cardiac silhouette. Bones: Unremarkable IMPRESSION: 1. No interval change.
[2025-05-11] MEDS ORDERED: HEPARIN SODIUM (PORCINE) 5000 UNITS/ML 1ML VIAL SC SCH (10:00)
--- NOTE | 2025-05-11 10:30 | DVHPN2 ---
Progress Note - Dictate Date Seen: May 11, 2025 Medical Necessity Reason Pt with a Central, PICC or Fol: No vital signs Vital Sign Date Time Temp Pulse Resp B/P (MAP) Pulse Ox O2 Delivery O2 Flow Rate FiO2 05/11/25 08:00 98 05/11/25 06:10 18 97 05/11/25 06:00 Room Air* 0 21 05/11/25 06:00 98.4 143/95 (111) 209.1 Total Intake and Output 05/10/25 05/10/25 05/11/25 15:00 23:00 07:00 Intake Total 1200 ml 400 ml 650 ml Output Total 580 ml 450 ml Balance 1200 ml -180 ml 200 ml medications Current Medications Medications Dose Ordered Sig/Wai Route Start Time Stop Time Status Last Admin Dose Admin Nitroglycerin 0.4 mg Q5MINP PRN SL 05/09/25 23:15 Morphine Sulfate 2 mg Q30M PRN IV 05/09/25 23:15 Albuterol 2.5 mg Q6HR NEB 05/10/25 00:00 05/11/25 05:59 2.5 MG Acetylcysteine 200 mg Q6HR NEB 05/10/25 00:00 05/11/25 06:00 200 MG Vancomycin HCl 0 ml @ 0 mls/hr UD IV 05/09/25 23:15 Diagnostic Test (Pha) 1 strip Q6HR 05/10/25 02:00 05/11/25 06:02 1 STRIP Insulin Human Regular Q6HR SC 05/10/25 02:00 05/10/25 02:37 2 UNITS Dextrose 50 ml UD PRN IV 05/10/25 01:45 05/10/25 23:49 50 ML Pantoprazole Sodium 40 mg DAILY IV 05/10/25 10:00 05/10/25 11:54 40 MG Morphine Sulfate 1 mg Q6HP PRN IV 05/10/25 05:15 05/10/25 05:18 1 MG Sodium Bicarbonate 100 ml/Dextrose 1,100 ml @ 100 mls/hr Q11H IV 05/10/25 14:15 05/10/25 23:49 100 MLS/HR Meropenem 50 ml @ 17 mls/hr Q12HR IV 05/10/25 22:00 05/10/25 23:52 17 MLS/HR Aspirin 81 mg DAILY PO 05/11/25 10:00 Heparin Sodium (Porcine) 4,000 units Q12HR SC 05/11/25 10:00 objective General Appearance: alert, no distress HEENT: EOMI, PERRLA, normal external inspect of ears, no icterus, no nasal drainage Neck: no carotid bruit, no jugular venous distention (JVD), no lymphadenopathy Chest: normal thorax Respiratory: clear to auscultation, normal air movement Cardiovascular: regular rate and rhythm, no diastolic murmur, no jugular venous distention (JVD), no rub, no systolic murmur Abdominal: soft, no hepatomegaly, no mass, no splenomegaly, no tenderness Genitourinary: grossly normal external Musculoskeletal: no joint tenderness, no swelling Extremities: normal pulses, no calf tenderness, no clubbing, no cyanosis, no edema Skin: no bruising, no jaundice, no rash Neurological: alert, No focal deficit laboratory and microbiology Laboratory Tests 05/11/25 03:45 Test 05/11/25 03:45 Range/Units Serum Glucose 95 74-106 mg/dL Problem List 1. Sepsis IV Abx 2. Acute on chronic anemia Medications, Monitoring 3. LISANDRO with CKD III 10 Nephrology consult 4. Bed bound Monitoring 5. CVA with residual deficits Monitoring 6. NSTEMI II, demand ischemia Cardiology consult, monitor EKG 7. MRSA w/ Nares Medications, Monitoring 8. Hyperkalemia r/t LISANDRO Hyperkalemia Tx 9. Hypoglycemia Medications, Monitoring Assessment/Plan Subjective: Patient is not awake or alert. Objective: Patient is currently aphasic. Patient has sepsis and acute renal failure. Patient was seen by nephrology. Patient was given IV fluids and IV antibiotics. Patient has hypoglycemia. Currently monitoring glucose levels every four to six hours. Plan: Continue IV fluids per nephrology. Continue IV fluids. Monitor I&Os. Monitor daily labs. Possible CHF. Cardiology consult. Plan discussed with: Patient, Other CC Plasma Assessment Blood Product Administration S: [id number] RAÚL STEEL NP May 11, 2025 10:30
[2025-05-11] MEDS: HEPARIN SODIUM (PORCINE) 5000 UNITS/ML 1ML VIAL SC SCH (11:30)
[2025-05-11] MEDS: D5W/SOD CHL 0.45% 1,000 ML IV SCH (11:30)
[2025-05-11 14:34] LABS: Potassium 5.0 mmol/L (3.5-5.1)
[2025-05-11 14:35] LABS: Anion Gap 19 (5-15)
[2025-05-11 14:41] LABS: BUN/Creatinine Ratio 31.0 (10.0-20.0)
[2025-05-11 14:55] LABS: Carbon Dioxide 19 mmol/L (20-31); Chloride 116 mmol/L (98-107); Glucose 156 mg/dL (74-106); Sodium 154 mmol/L (136-145)
[2025-05-11 14:57] LABS: Blood Urea Nitrogen 148 mg/dL (9-23); Calcium 5.9 mg/dL (8.7-10.4)
--- NOTE | 2025-05-11 17:15 | DVHPNRES ---
Progress Note Date Seen: May 11, 2025 Resident Creating Document: EYAL HI RESIDENT Medical Necessity Reason Pt with a Central, PICC or Fol: No Medical Necessity Reason Patient is a 44-year-old male who is minimally verbal, awake, but confused. Family member ( Mother) by the bedside. Said patient is from hospice. Nonverbal. As per the mother patient started having difficulty breathing, no fever or chills were noted following which she called the EMS. Subjective Review of Systems unable to access given the current stable. At baseline patient is nonverbal. Objective vital signs Vital Sign Date Time Temp Pulse Resp B/P (MAP) Pulse Ox O2 Delivery O2 Flow Rate FiO2 05/11/25 16:30 14 96 Room Air* 0 21 05/11/25 16:00 89 05/11/25 12:00 98.2 122/79 (93) 208.8 Total Intake and Output 05/10/25 05/10/25 05/11/25 15:00 23:00 07:00 Intake Total 1200 ml 400 ml 650 ml Output Total 580 ml 450 ml Balance 1200 ml -180 ml 200 ml medications Current Medications Medications Dose Ordered Sig/Wai Route Start Time Stop Time Status Last Admin Dose Admin Nitroglycerin 0.4 mg Q5MINP PRN SL 05/09/25 23:15 Morphine Sulfate 2 mg Q30M PRN IV 05/09/25 23:15 Albuterol 2.5 mg Q6HR NEB 05/10/25 00:00 05/11/25 11:15 2.5 MG Acetylcysteine 200 mg Q6HR NEB 05/10/25 00:00 05/11/25 11:15 200 MG Vancomycin HCl 0 ml @ 0 mls/hr UD IV 05/09/25 23:15 Diagnostic Test (Pha) 1 strip Q6HR 05/10/25 02:00 05/11/25 12:24 1 STRIP Insulin Human Regular Q6HR SC 05/10/25 02:00 05/10/25 02:37 2 UNITS Dextrose 50 ml UD PRN IV 05/10/25 01:45 05/10/25 23:49 50 ML Pantoprazole Sodium 40 mg DAILY IV 05/10/25 10:00 05/11/25 11:31 40 MG Morphine Sulfate 1 mg Q6HP PRN IV 05/10/25 05:15 05/10/25 05:18 1 MG Meropenem 50 ml @ 17 mls/hr Q12HR IV 05/10/25 22:00 05/11/25 11:30 17 MLS/HR Aspirin 81 mg DAILY PO 05/11/25 10:00 Heparin Sodium (Porcine) 4,000 units Q12HR SC 05/11/25 10:00 05/11/25 11:30 4,000 UNITS Dextrose/Sodium Chloride 1,000 ml @ 75 mls/hr [id number] IV 05/11/25 17:00 05/11/25 11:30 75 MLS/HR Examination General Appearance: awake, confused. Cachectic HEENT: conjunctival pallor seen, no icterus, no cyanosis, Respiratory: Clear to auscultation, Normal air movement Cardiovascular: Regular rate, Normal S1, Normal S2, No murmurs, no chest wall tenderness Abdominal: NO distention, no tenderness, bowel sounds present, no scars noted Extremities: muscle wasting Skin: Dry; No rashes, No breakdown, No significant lesion Neuro: bed-bound Psych/Mental Status: nonverbal laboratory and microbiology Laboratory Tests 05/11/25 14:08 05/11/25 03:45 Test 05/11/25 14:08 Range/Units Serum Glucose 156 H 74-106 mg/dL Microbiology Date/Time Source Procedure Growth Status 05/10/25 04:45 Urine - [place] Urine Culture - Preliminary Resulted 05/10/25 02:49 Nose MRSA Screen - Final Methicillin Resistant S.aureus Complete 05/09/25 19:30 Blood Blood Culture - Preliminary NO GROWTH AFTER 24 HOURS OF INCUBATION. Resulted Problem List/Assessment/Plan Problem List/Assessment/Plan Assessment/Plan Neuro: Acute metabolic encephalopathy likely due to sepsis, uremia H/o CVA - IV antibiotics,See below - IV fluids Cardiovascular NSTEMI likely type 2 due to demand ischemia - echo from December 2024 shows LVEF 64% Respiratory Acute hypoxemic respiratory failure, POA - CXR: Findings suggest a mild degree of pulmonary edema which is decreased compared to the prior study on 01/11/2025. Pneumonia is considered less likely. - 2L of oxygen - AB- ABG to be obtained, VBG shows metabolic acidosis with a base excess of - 24.9 - 100 mEq of sodium bicarb Genitourinary LISANDRO on CKD stage 3 likely due VMN vs ATN CKD stage 3 Infectious Disease: Sepsis likely due to pneumonia, UTI Pneumonia likely due to Gram +/- bacteria, possible aspiration Indwelling Lindsay's catheter long-term, UTI - broad-spectrum IV antibiotics vancomycin and Zosyn - aggressive fluid replacement - change Lindsay catheter - blood cultures pending -- duo nebs q.6 hours, acetylcysteine q.6 hours Metabolic Hyperkalemia Hypernatremia Anion gap metabolic acidosis likely due to uremia - IV fluids - Lasix IV ( not used aggressively because patient was septic low blood pressure) - hyperkalemia treatment protocols given - ABG to be obtained, VBG shows metabolic acidosis with a base excess of -24.9 - 100 mEq of sodium bicarb Endocrine Hyperglycemia with a history of diabetes mellitus Probable starvation ketosis Severe protein calorie malnutrition Cachexia - currently patient NPO - mild ISS - D5 half NS IV fluid Hematology: Microcytic normochromic anemia Severe anemia - 1 unit of PRBC transfused - Daily CBC, if less than 7 transfuse another PRBC PUD prophylaxis: Protonix DVT prophylaxis: Currently held because of low hemoglobin, SCD Goals of care discussed for more than 25 minutes, Code status: Full Case discussed with with the patient's primary RN and Dr. Jacobs Plan discussed with: Other (Mother, nurse) My Orders My Orders Orders - EYAL HI Procedure Category Date Status Time Chest Xray 1 View XY 05/11/25 Resulted 08:09 Urine Bacterial JENNIFER 05/11/25 Logged Culture 09:37 CC Plasma Assessment Blood Product Administration S: [id number] Date of Service: May 11, 2025 Billing Provider: SYD JACOBS MD Common Visit Codes: NOT BILLABLE EYAL HI May 11, 2025 17:15 SYD JACOBS MD May 18, 2025 13:46
--- NOTE | 2025-05-11 17:17 | DVHSR ---
APPROVED REPORT EXAM: Two-dimensional and M-mode echocardiogram with Doppler and color Doppler. Blood Pressure: 143/95 mmHg INDICATION CVA/TIA: RISK FACTORS Height: 5', Weight: 88 DIMENSIONS LVDd4.1 (3.8-5.7cm)LA (2D)4.0 (1.9-4.0cm)Aortic Root2.8 (2.0-3.7cm) LVDs3.0 (2.5-4.0cm)LA (MM) (1.9-4.0cm)Aortic Cusp Exc1.6 (1.5-2.0cm) EF (%) 53.0 (55-70%)Rt. Atrium3.2 (1.9-4.0cm)Asc. Aorta2.8 cm IVSd1.2 (0.7-1.1cm)RV (D)3.3 (1.8-2.4cm) PWd0.8 (0.7-1.1cm) Mitral Valve MitralMitral Stenosis E wave0.96m/sMV Mean GR.mmHg A wave0.84m/sMV Peak GR.mmHg E/A ratio1.12D MVAcm2 DECEL [id number] 1/2 Tim[place] Aortic Valve Aortic ValveAortic Stenosis V10.77m/Riky Mean GR.3mmHg V21.14m/Riky Peak GR.5mmHg LVOT Diameter1.9 (1.8-2.4cm)Doppler AVA1.91cm2 Pulmonic Valve V20.60m/s Tricuspid Valve TR Velocity2.26m/s [id number] Conclusion Left ventricle: Mild diffuse hypokinesis of left ventricle was seen. LVEF was around 50%. Right ventricle was normal size with mildly reduced systolic function. Both atria were normal size. Aortic valve was trileaflet. There was no aortic insufficiency/stenosis. There was mild mitral/tric uspid regurgitation. There was no pulmonary valve insufficiency. Right ventricular systolic pressure was assessed at 35 mm Hg. There was trace pericardial effusion.
--- NOTE | 2025-05-11 17:47 | DVHPN2 ---
Progress Note Date Seen: May 11, 2025 Medical Necessity Reason Pt with a Central, PICC or Fol: No Subjective Patient reports: Other (Poor historian) Review of Systems: Deferred Objective vital signs Vital Sign Date Time Temp Pulse Resp B/P (MAP) Pulse Ox O2 Delivery O2 Flow Rate FiO2 05/11/25 16:30 14 96 Room Air* 0 21 05/11/25 16:00 89 05/11/25 12:00 98.2 122/79 (93) 208.8 Total Intake and Output 05/10/25 05/10/25 05/11/25 15:00 23:00 07:00 Intake Total 1200 ml 400 ml 650 ml Output Total 580 ml 450 ml Balance 1200 ml -180 ml 200 ml medications Current Medications Medications Dose Ordered Sig/Wai Route Start Time Stop Time Status Last Admin Dose Admin Nitroglycerin 0.4 mg Q5MINP PRN SL 05/09/25 23:15 Morphine Sulfate 2 mg Q30M PRN IV 05/09/25 23:15 Albuterol 2.5 mg Q6HR NEB 05/10/25 00:00 05/11/25 11:15 2.5 MG Acetylcysteine 200 mg Q6HR NEB 05/10/25 00:00 05/11/25 11:15 200 MG Vancomycin HCl 0 ml @ 0 mls/hr UD IV 05/09/25 23:15 Diagnostic Test (Pha) 1 strip Q6HR 05/10/25 02:00 05/11/25 12:24 1 STRIP Insulin Human Regular Q6HR SC 05/10/25 02:00 05/10/25 02:37 2 UNITS Dextrose 50 ml UD PRN IV 05/10/25 01:45 05/10/25 23:49 50 ML Pantoprazole Sodium 40 mg DAILY IV 05/10/25 10:00 05/11/25 11:31 40 MG Morphine Sulfate 1 mg Q6HP PRN IV 05/10/25 05:15 05/10/25 05:18 1 MG Meropenem 50 ml @ 17 mls/hr Q12HR IV 05/10/25 22:00 05/11/25 11:30 17 MLS/HR Aspirin 81 mg DAILY PO 05/11/25 10:00 Heparin Sodium (Porcine) 4,000 units Q12HR SC 05/11/25 10:00 05/11/25 11:30 4,000 UNITS Dextrose/Sodium Chloride 1,000 ml @ 75 mls/hr [id number] IV 05/11/25 17:00 05/11/25 11:30 75 MLS/HR Calcium Gluconate/ Sodium Chloride 50 ml @ 100 mls/hr Q30M IV 05/11/25 17:45 05/11/25 18:44 UNV Examination: GENERAL:Abnormal, MSK:Abnormal, SKIN:Abnormal, NEURO:Abnormal laboratory and microbiology Laboratory Tests 05/11/25 14:08 05/11/25 03:45 Test 05/11/25 14:08 Range/Units Serum Glucose 156 H 74-106 mg/dL Microbiology Date/Time Source Procedure Growth Status 05/10/25 04:45 Urine - [place] Urine Culture - Preliminary Resulted 05/10/25 02:49 Nose MRSA Screen - Final Methicillin Resistant S.aureus Complete 05/09/25 19:30 Blood Blood Culture - Preliminary NO GROWTH AFTER 24 HOURS OF INCUBATION. Resulted Problem List/Assessment/Plan Problem List/Assessment/Plan Acute kidney injury likely acute tubular necrosis in the setting of severe sepsis Severe sepsis Metabolic acidosis Encephalopathy Hypernatremia Hyperkalemia Hypocalcemia Chronic Lindsay for greater than one year Multiple admissions in the past one year Previously on hospice before coming here Recommendations DC bicarb drip switch to d5 half NS Discussed in detail with mother who is bedside recommended patient might need dialysis in the next 24 hours if renal function do not improve however patient's mother mentioned she does not want dialysis for the patient as he has been sick for the last one year and very weak and patient used to be on hospice before coming here We will recommend conservative management for now IV calcium as ordered Potassium is better Plan discussed with: Other (Mother at bedside) My Orders My Orders Orders - ROSE BROWNLEE MD Procedure Category Date Status Time Strict I & O TERESA 05/11/25 In Process 08:05 Communication Order ORDERS 05/11/25 Transmitted 08:08 D5w/Sod Chl 0.45% PHA 05/11/25 In Process (D5w 1/2ns) 17:00 Calcium Gluc PHA 05/11/25 Logged 1,000mg/50ml-Ns 17:45 Critical Care Time (mins): 45 CC Plasma Assessment Blood Product Administration S: [id number] ROSE BROWNLEE MD May 11, 2025 17:47
[2025-05-11] MEDS: CALCIUM GLUC 1,000mg/50ml-NS 50 ML IV SCH (18:28)
[2025-05-11] MEDS: MUPIROCIN 2% OINT 15gm or 22gm FOR MRSA NARES EACHNOSTRI SCH (21:49)
[2025-05-12] VITALS (28 sets, daily range): BP systolic 137–171; BP diastolic 91–118; PULSE 91–112; RESP 11–20; TEMP 50.5–98.1; O2SAT 93–99
[2025-05-12 04:28] LABS: Hematocrit 27.6 % (41.0-53.0); Hemoglobin 9.0 g/dL (13.5-17.5); Mean Corpuscular Hemoglobin 29.2 pg (28.0-32.0); Mean Corpuscular Volume 89.6 fL (80.0-100.0)
[2025-05-12 04:39] LABS: Anion Gap 20 (5-15); Potassium 4.9 mmol/L (3.5-5.1)
[2025-05-12 04:45] LABS: BUN/Creatinine Ratio 27.3 (10.0-20.0); Calcium 7.3 mg/dL (8.7-10.4); Carbon Dioxide 17 mmol/L (20-31); Chloride 115 mmol/L (98-107); Glucose 198 mg/dL (74-106); Sodium 152 mmol/L (136-145)
[2025-05-12 04:47] LABS: Blood Urea Nitrogen 132 mg/dL (9-23)
[2025-05-12 05:16] LABS: Nucleated Red Blood Cells % 1.0 %; Total Cells Counted 100.0 (100)
--- NOTE | 2025-05-12 06:18 | DVHPN2 ---
Progress Note - Dictate Date Seen: May 12, 2025 Medical Necessity Reason Pt with a Central, PICC or Fol: No vital signs Vital Sign Date Time Temp Pulse Resp B/P (MAP) Pulse Ox O2 Delivery O2 Flow Rate FiO2 05/12/25 06:00 97.7 95 14 152/102 (119) 97 207.9 05/12/25 04:00 Room Air* 0 21 Total Intake and Output 05/11/25 05/11/25 05/12/25 15:00 23:00 07:00 Intake Total 351 ml 610 ml 592 ml Output Total 300 ml 400 ml Balance 351 ml 310 ml 192 ml medications Current Medications Medications Dose Ordered Sig/Wai Route Start Time Stop Time Status Last Admin Dose Admin Nitroglycerin 0.4 mg Q5MINP PRN SL 05/09/25 23:15 Morphine Sulfate 2 mg Q30M PRN IV 05/09/25 23:15 Albuterol 2.5 mg Q6HR NEB 05/10/25 00:00 05/12/25 00:11 2.5 MG Acetylcysteine 200 mg Q6HR NEB 05/10/25 00:00 05/12/25 00:12 200 MG Vancomycin HCl 0 ml @ 0 mls/hr UD IV 05/09/25 23:15 Diagnostic Test (Pha) 1 strip Q6HR 05/10/25 02:00 05/12/25 05:37 1 STRIP Insulin Human Regular Q6HR SC 05/10/25 02:00 05/10/25 02:37 2 UNITS Dextrose 50 ml UD PRN IV 05/10/25 01:45 05/10/25 23:49 50 ML Pantoprazole Sodium 40 mg DAILY IV 05/10/25 10:00 05/11/25 11:31 40 MG Morphine Sulfate 1 mg Q6HP PRN IV 05/10/25 05:15 05/10/25 05:18 1 MG Meropenem 50 ml @ 17 mls/hr Q12HR IV 05/10/25 22:00 05/11/25 21:45 17 MLS/HR Aspirin 81 mg DAILY PO 05/11/25 10:00 Heparin Sodium (Porcine) 4,000 units Q12HR SC 05/11/25 10:00 05/11/25 21:48 4,000 UNITS Dextrose/Sodium Chloride 1,000 ml @ 75 mls/hr [id number] IV 05/11/25 17:00 05/12/25 01:28 75 MLS/HR Mupirocin 1 applic BID EACHNOSTRI 05/11/25 22:00 05/16/25 21:59 05/11/25 21:49 1 APPLIC laboratory and microbiology Laboratory Tests 05/12/25 04:08 Test 05/12/25 04:08 Range/Units Serum Glucose 198 H 74-106 mg/dL Assessment/Plan Patient is a 44-year-old gentleman who presented with altered mental status/shortness of breath. He is at baseline poor historian. Information was obtained by reviewing the chart and communicating with staff. It seems that since arrival the patient was found to have severe sepsis and multiorgan dysfunction. He has been on supplemental oxygen. 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 Reportedly on arrival to Emergency room blood pressure was low on later improved. Cardiology is involved for cardiac aspects of care. There is no report of chest pain. Lying flat in bed. No JVD. Mucosa is pink and wet. Scattered rhonchi in the lungs is heard. Cardiac: Regular, tachycardic, no thrill. Systolic murmur 2/6 in apex is heard. Abdomen is soft. There is no gross mass. There is no hepatomegaly. Extremities do not reveal edema. Dorsalis pedis is 2+ bilateral Past medical history reportedly includes old history of CVA with poor functional capacity, CKD, hypertension, hyperlipidemia, diabetes mellitus, repeated history of sepsis, history of urethral stricture and recurrent UTI, history of phimosis anemia and bed-bound at baseline. There was question if the patient has baseline history of diastolic heart failure Echocardiogram of December 2024 revealed ejection fraction of 64%, trace MR/TR and right ventricular systolic pressure of 34 mm Hg. WBC: 26.7 - 20.8 - 29.9 - 29.4 Hemoglobin: 5.9 - 6.8 - 7.8 - 9.0 BNP: 528.66 Creatinine: 5.69 - 5.7 - 4.72 - 4.86 - 4.67 - 4.73 - 4.70 - 4.77 - 4.84 Potassium: 8.0 - 7.6 - 5.8 - 5.8 - 5.0 - 5.0 - 5.0 - 4.9 Sodium: 147 - 146 - 153 - 154 - 157 - 155 - 154 - 152 AST/ALT: 96/66 - 468/478 - 257/349 Troponin (high sensitive): 81 - 89 - 92 Chest x-ray reported: IMPRESSION: Findings suggest a mild degree of pulmonary edema which is decreased compared to the prior study on 01/11/2025. Pneumonia is considered less likely Repeat chest xry revealed: IMPRESSION: 1. No interval change. Renal ultrasound reported: IMPRESSION: Bilateral medical renal disease. EKG revealed sinus tachycardia Tele shows sinus tachycardia Echocardiogram revealed: Left ventricle: Mild diffuse hypokinesis of left ventricle was seen. LVEF was around 50%. Right ventricle was normal size with mildly reduced systolic function. Both atria were normal size. Aortic valve was trileaflet. There was no aortic insufficiency/stenosis. There was mild mitral/tricuspid regurgitation. There was no pulmonary valve insufficiency. Right ventricular systolic pressure was assessed at 35 mm Hg. There was trace pericardial effusion. Patient is a 44-year-old gentleman who was at baseline bed-bound with old history of CVA who presented with altered mental status and shortness of breath. Presentation is in favor acute respiratory failure secondary to sepsis. Multiorgan failure secondary to sepsis is considered. Minimal increase in troponin is considered to reflect demand ischemia in a patient with questionable history of diastolic heart failure. In December 2024 ejection fraction in echocardiogram was 64% with no specific increase in right ventricular systolic pressure. Acute respiratory failure Sepsis Encephalopathy, metabolic versus toxic LISANDRO on CKD ATN Demand ischemia Hypernatremia Hypokalemia Anemia Cardiac suggestion for management: Manage in RACHELLE Fluid resuscitation as per Nephrology Follow-up electrolytes and kidney function tests and correct abnormalities Aspirin: 81 mg daily with old history of CVA is suggested DVT prophylaxis Control hypertension Management of sepsis/infection as per primary team Pulmonary follow-up for respiratory failure Nephrology follow up for ATN/LISANDRO suggested Further evaluation and management depends on the above and clinical course A total of 75 minutes was spent reviewing the patient record, examining the patient, making a diagnostic and therapeutic plan, discussing this plan with medical personnel, following up on diagnostic studies and following the patient for clinical stability excluding any and all procedures. At least 50% of this time was spent in direct, [id number] contact. Thank you for allowing me to participate in this patient's care. Further recommendations will depend on patient's clinical course. Please do not hesitate to contact me if you have any questions or concerns. This medical document was created using electronic medical record system with [employer] computerized dictation system. Although this document has been carefully reviewed, there may still be some phonetic and typographical errors. These areas are purely typographical due to the imperfection of the software programs, and do not reflect any compromise in the patient's medical care. Plan discussed with: Other (nurse) CC Plasma Assessment Blood Product Administration S: [id number] FAN HAMEED MD May 12, 2025 06:17
--- NOTE | 2025-05-12 09:30 | DVHPN2 ---
Progress Note - Dictate Date Seen: May 12, 2025 Medical Necessity Reason Pt with a Central, PICC or Fol: No vital signs Vital Sign Date Time Temp Pulse Resp B/P (MAP) Pulse Ox O2 Delivery O2 Flow Rate FiO2 05/12/25 08:00 15 97 Room Air* 0 21 05/12/25 08:00 94 05/12/25 06:00 97.7 152/102 (119) 207.9 Total Intake and Output 05/11/25 05/11/25 05/12/25 15:00 23:00 07:00 Intake Total 351 ml 610 ml 592 ml Output Total 300 ml 400 ml Balance 351 ml 310 ml 192 ml medications Current Medications Medications Dose Ordered Sig/Wai Route Start Time Stop Time Status Last Admin Dose Admin Nitroglycerin 0.4 mg Q5MINP PRN SL 05/09/25 23:15 Morphine Sulfate 2 mg Q30M PRN IV 05/09/25 23:15 Albuterol 2.5 mg Q6HR NEB 05/10/25 00:00 05/12/25 06:45 2.5 MG Acetylcysteine 200 mg Q6HR NEB 05/10/25 00:00 05/12/25 06:45 200 MG Vancomycin HCl 0 ml @ 0 mls/hr UD IV 05/09/25 23:15 Diagnostic Test (Pha) 1 strip Q6HR 05/10/25 02:00 05/12/25 05:37 1 STRIP Insulin Human Regular Q6HR SC 05/10/25 02:00 05/10/25 02:37 2 UNITS Dextrose 50 ml UD PRN IV 05/10/25 01:45 05/10/25 23:49 50 ML Pantoprazole Sodium 40 mg DAILY IV 05/10/25 10:00 05/11/25 11:31 40 MG Morphine Sulfate 1 mg Q6HP PRN IV 05/10/25 05:15 05/10/25 05:18 1 MG Meropenem 50 ml @ 17 mls/hr Q12HR IV 05/10/25 22:00 05/11/25 21:45 17 MLS/HR Aspirin 81 mg DAILY PO 05/11/25 10:00 Heparin Sodium (Porcine) 4,000 units Q12HR SC 05/11/25 10:00 05/11/25 21:48 4,000 UNITS Dextrose/Sodium Chloride 1,000 ml @ 75 mls/hr [id number] IV 05/11/25 17:00 05/12/25 01:28 75 MLS/HR Mupirocin 1 applic BID EACHNOSTRI 05/11/25 22:00 05/16/25 21:59 05/11/25 21:49 1 APPLIC Hydralazine HCl 10 mg Q6HP PRN IV 05/12/25 06:30 objective General Appearance: alert, no distress HEENT: EOMI, PERRLA, normal external inspect of ears, no icterus, no nasal drainage Neck: no carotid bruit, no jugular venous distention (JVD), no lymphadenopathy Chest: normal thorax Respiratory: clear to auscultation, normal air movement Cardiovascular: regular rate and rhythm, no diastolic murmur, no jugular venous distention (JVD), no rub, no systolic murmur Abdominal: soft, no hepatomegaly, no mass, no splenomegaly, no tenderness Genitourinary: grossly normal external Musculoskeletal: no joint tenderness, no swelling Extremities: normal pulses, no calf tenderness, no clubbing, no cyanosis, no edema Skin: no bruising, no jaundice, no rash Neurological: alert, No focal deficit laboratory and microbiology Laboratory Tests 05/12/25 04:08 Test 05/12/25 04:08 Range/Units Serum Glucose 198 H 74-106 mg/dL Problem List 1. Sepsis IV Abx 2. Acute on chronic anemia Medications, Monitoring 3. LISANDRO with CKD 3b Nephrology consult 4. Bed bound Monitoring 5. CVA with residual deficits Monitoring 6. NSTEMI II, demand ischemia Cardiology consult, monitor EKG 7. MRSA w/ Nares Medications, Monitoring 8. Hyperkalemia r/t LISANDRO Hyperkalemia Tx 9. Hypoglycemia Medications, Monitoring Assessment/Plan Subjective: Patient is more awake and alert. Objective: I updated patient's mother Cait at bedside. Patient was admitted for sepsis and LISANDRO superimposed on CKD. Patient was previously on hospice. Patient had severe hypoglycemia. Patient now on dextrose fluids. Hypoglycemia has since resolved. Patient normally can talk and feed himself. Plan: Continue current treatment. Monitor neurostatus. Monitor urine output. Nephrology recommendations appreciated. Plan discussed with: Patient, Other CC Plasma Assessment Blood Product Administration S: [id number] RAÚL STEEL NP May 12, 2025 09:30
[2025-05-12] MEDS: hydrALAZINE HCL 20 MG/ML VL IV PRN (10:44)
--- NOTE | 2025-05-12 16:16 | DVHPN2 ---
Progress Note Date Seen: May 12, 2025 Medical Necessity Reason Pt with a Central, PICC or Fol: No Subjective Patient reports: Other (remains altered) Review of Systems: Deferred Objective vital signs Vital Sign Date Time Temp Pulse Resp B/P (MAP) Pulse Ox O2 Delivery O2 Flow Rate FiO2 05/12/25 12:00 15 99 Room Air* 0 21 05/12/25 12:00 109 05/12/25 10:44 166/111 05/12/25 06:00 97.7 207.9 Total Intake and Output 05/11/25 05/11/25 05/12/25 15:00 23:00 07:00 Intake Total 351 ml 610 ml 592 ml Output Total 300 ml 400 ml Balance 351 ml 310 ml 192 ml medications Current Medications Medications Dose Ordered Sig/Wai Route Start Time Stop Time Status Last Admin Dose Admin Nitroglycerin 0.4 mg Q5MINP PRN SL 05/09/25 23:15 Morphine Sulfate 2 mg Q30M PRN IV 05/09/25 23:15 Albuterol 2.5 mg Q6HR NEB 05/10/25 00:00 05/12/25 11:38 2.5 MG Acetylcysteine 200 mg Q6HR NEB 05/10/25 00:00 05/12/25 11:38 200 MG Vancomycin HCl 0 ml @ 0 mls/hr UD IV 05/09/25 23:15 Diagnostic Test (Pha) 1 strip Q6HR 05/10/25 02:00 05/12/25 12:04 1 STRIP Insulin Human Regular Q6HR SC 05/10/25 02:00 05/12/25 12:03 3 UNITS Dextrose 50 ml UD PRN IV 05/10/25 01:45 05/10/25 23:49 50 ML Pantoprazole Sodium 40 mg DAILY IV 05/10/25 10:00 05/12/25 10:22 40 MG Morphine Sulfate 1 mg Q6HP PRN IV 05/10/25 05:15 05/10/25 05:18 1 MG Meropenem 50 ml @ 17 mls/hr Q12HR IV 05/10/25 22:00 05/12/25 10:22 17 MLS/HR Aspirin 81 mg DAILY PO 05/11/25 10:00 Dextrose/Sodium Chloride 1,000 ml @ 75 mls/hr [id number] IV 05/11/25 17:00 05/12/25 01:28 75 MLS/HR Mupirocin 1 applic BID EACHNOSTRI 05/11/25 22:00 05/16/25 21:59 05/12/25 10:23 1 APPLIC Hydralazine HCl 10 mg Q6HP PRN IV 05/12/25 06:30 05/12/25 10:44 10 MG Ceftriaxone Sodium 50 ml @ 100 mls/hr DAILY@09 IV 05/13/25 09:00 UNV Examination: GENERAL:Abnormal, MSK:Abnormal, SKIN:Abnormal, NEURO:Abnormal laboratory and microbiology Laboratory Tests 05/12/25 04:08 Test 05/12/25 04:08 Range/Units Serum Glucose 198 H 74-106 mg/dL Microbiology Date/Time Source Procedure Growth Status 05/11/25 23:45 Voided Urine Urine Culture - Preliminary Resulted 05/10/25 02:49 Nose MRSA Screen - Final Methicillin Resistant S.aureus Complete 05/09/25 19:30 Blood Blood Culture - Preliminary NO GROWTH AFTER 48 HOURS OF INCUBATION. Resulted Problem List/Assessment/Plan Problem List/Assessment/Plan Acute kidney injury likely acute tubular necrosis in the setting of severe sepsis Severe sepsis Metabolic acidosis Encephalopathy Hypernatremia Hyperkalemia Hypocalcemia Chronic Lindsay for greater than one year Multiple admissions in the past one year Previously on hospice before coming here Recommendations d5 half NS for sodium correction Discussed in detail with mother who is bedside recommended patient might need dialysis in the next 24 hours if renal function do not improve however patient's mother mentioned she does not want dialysis for the patient as he has been sick for the last one year and very weak and patient used to be on hospice before coming here We will recommend conservative management for now Potassium is better Plan discussed with: Other My Orders My Orders Orders - ROSE BROWNLEE MD Procedure Category Date Status Time D5w/Sod Chl 0.45% PHA 05/11/25 In Process (D5w 1/2ns) 17:00 CC Plasma Assessment Blood Product Administration S: [id number] ROSE BROWNLEE MD May 12, 2025 16:16
--- NOTE | 2025-05-12 16:27 | DVHPNRES ---
Progress Note Date Seen: May 12, 2025 Resident Creating Document: EYAL HI RESIDENT Medical Necessity Reason Pt with a Central, PICC or Fol: No Medical Necessity Reason Patient seen and examined. Looking much better than before. Vitals are overall stable. Labs however, shows increasing wbc,shows, Hgb 9. electrolytes improving as well. From pulmonology standpoint, he is stale on room air. Nephrology is following as well. Subjective Review of Systems Nonverbal Objective vital signs Vital Sign Date Time Temp Pulse Resp B/P (MAP) Pulse Ox O2 Delivery O2 Flow Rate FiO2 05/12/25 12:00 15 99 Room Air* 0 21 05/12/25 12:00 109 05/12/25 10:44 166/111 05/12/25 06:00 97.7 207.9 Total Intake and Output 05/11/25 05/11/25 05/12/25 15:00 23:00 07:00 Intake Total 351 ml 610 ml 592 ml Output Total 300 ml 400 ml Balance 351 ml 310 ml 192 ml medications Current Medications Medications Dose Ordered Sig/Wai Route Start Time Stop Time Status Last Admin Dose Admin Nitroglycerin 0.4 mg Q5MINP PRN SL 05/09/25 23:15 Morphine Sulfate 2 mg Q30M PRN IV 05/09/25 23:15 Albuterol 2.5 mg Q6HR NEB 05/10/25 00:00 05/12/25 11:38 2.5 MG Acetylcysteine 200 mg Q6HR NEB 05/10/25 00:00 05/12/25 11:38 200 MG Vancomycin HCl 0 ml @ 0 mls/hr UD IV 05/09/25 23:15 Diagnostic Test (Pha) 1 strip Q6HR 05/10/25 02:00 05/12/25 12:04 1 STRIP Insulin Human Regular Q6HR SC 05/10/25 02:00 05/12/25 12:03 3 UNITS Dextrose 50 ml UD PRN IV 05/10/25 01:45 05/10/25 23:49 50 ML Pantoprazole Sodium 40 mg DAILY IV 05/10/25 10:00 05/12/25 10:22 40 MG Morphine Sulfate 1 mg Q6HP PRN IV 05/10/25 05:15 05/10/25 05:18 1 MG Meropenem 50 ml @ 17 mls/hr Q12HR IV 05/10/25 22:00 05/12/25 10:22 17 MLS/HR Aspirin 81 mg DAILY PO 05/11/25 10:00 Dextrose/Sodium Chloride 1,000 ml @ 75 mls/hr [id number] IV 05/11/25 17:00 05/12/25 01:28 75 MLS/HR Mupirocin 1 applic BID EACHNOSTRI 05/11/25 22:00 05/16/25 21:59 05/12/25 10:23 1 APPLIC Hydralazine HCl 10 mg Q6HP PRN IV 05/12/25 06:30 05/12/25 10:44 10 MG Ceftriaxone Sodium 50 ml @ 100 mls/hr DAILY@09 IV 05/13/25 09:00 UNV Examination General Appearance: awake, confused. Cachectic HEENT: conjunctival pallor seen, no icterus, no cyanosis, Respiratory: Clear to auscultation, Normal air movement on ROOM AIR Cardiovascular: Regular rate, Normal S1, Normal S2, No murmurs, no chest wall tenderness Abdominal: NO distention, no tenderness, bowel sounds present, no scars noted Extremities: muscle wasting Skin: Dry; No rashes, No breakdown, No significant lesion Neuro: bed-bound Psych/Mental Status: nonverbal laboratory and microbiology Laboratory Tests 05/12/25 04:08 Test 05/12/25 04:08 Range/Units Serum Glucose 198 H 74-106 mg/dL Microbiology Date/Time Source Procedure Growth Status 05/11/25 23:45 Voided Urine Urine Culture - Preliminary Resulted 05/10/25 02:49 Nose MRSA Screen - Final Methicillin Resistant S.aureus Complete 05/09/25 19:30 Blood Blood Culture - Preliminary NO GROWTH AFTER 48 HOURS OF INCUBATION. Resulted Problem List/Assessment/Plan Problem List/Assessment/Plan Assessment/Plan Neuro: Acute metabolic encephalopathy likely due to sepsis, uremia H/o CVA - IV antibiotics,See below - IV fluids Cardiovascular NSTEMI likely type 2 due to demand ischemia - echo from December 2024 shows LVEF 64% Respiratory Acute hypoxemic respiratory failure, POA - CXR: Findings suggest a mild degree of pulmonary edema which is decreased compared to the prior study on 01/11/2025. Pneumonia is considered less likely. - 2L of oxygen - AB- ABG to be obtained, VBG shows metabolic acidosis with a base excess of - 24.9 - 100 mEq of sodium bicarb - No more ABG Genitourinary LISANDRO on CKD stage 3 likely due VMN vs ATN CKD stage 3 Chronic Lindsay for greater than one year Nephrology on board: recommended dialysis in the next 24 hours if renal function do not improve. however patient's mother mentioned she does not want dialysis for the patient as he has been sick for the last one year and very weak We will recommend conservative management for now Infectious Disease: Severe sepsis likely due to pneumonia, UTI Pneumonia likely due to Gram +/- bacteria, possible aspiration Indwelling Lindsay's catheter long-term, UTI - broad-spectrum IV antibiotics vancomycin and meropenem, fluconazole - aggressive fluid replacement - change Lindsay catheter - Urine culture: yeast, Gram negative rods - blood cultures pending -- duo nebs q.6 hours, acetylcysteine q.6 hours --> Meropenem and vancomycin, add fluconazole Metabolic Hyperkalemia Hypernatremia Hypocalcemia Anion gap metabolic acidosis likely due to uremia - IV fluids - Lasix IV ( not used aggressively because patient was septic low blood pressure) - hyperkalemia treatment protocols given - ABG to be obtained, VBG shows metabolic acidosis with a base excess of -24.9 - 100 mEq of sodium bicarb- Stopped Endocrine Hyperglycemia with a history of diabetes mellitus Probable starvation ketosis Severe protein calorie malnutrition Cachexia - currently patient NPO - mild ISS - D5 half NS IV fluid Hematology: Microcytic normochromic anemia Severe anemia - 1 unit of PRBC transfused - Daily CBC, if less than 7 transfuse another PRBC PUD prophylaxis: Protonix DVT prophylaxis: Currently held because of low hemoglobin, SCD Disposition: Telemetry Plan: Previously on hospice before coming here. To send him back to Hospice. Goals of care discussed for more than 25 minutes, Code status: Full Case discussed with with the patient's primary RN and Dr. Jacobs Plan discussed with: Other (mother) My Orders My Orders Orders - EYAL HI RESIDENT Procedure Category Date Status Time Mupirocin 2% Oint PHA 05/11/25 In Process Mrsa Nares (Bactroban 22:00 Sequential TERESA 05/11/25 In Process Compression Device 18:34 CC Plasma Assessment Blood Product Administration S: [id number] Date of Service: May 12, 2025 Billing Provider: SYD JACOBS MD Common Visit Codes: NOT BILLABLE EYAL HI RESIDENT May 12, 2025 16:27 SYD JACOBS MD May 18, 2025 13:49
[2025-05-12] MEDS: InsuLIN REG 1unit/0.01ml Soln (100units/ml) SC SCH (18:00)
[2025-05-12] MEDS: FLUCONAZOLE 200MG/100ML 100 ML IV ONE (18:51)
[2025-05-13] VITALS (17 sets, daily range): BP systolic 142–158; BP diastolic 79–99; PULSE 89–100; RESP 16–20; TEMP 97.1–97.8; O2SAT 95–100
[2025-05-13] MEDS: InsuLIN REG 1unit/0.01ml Soln (100units/ml) SC SCH
[2025-05-13] MEDS ORDERED: DEXTROSE (50%) 50ML SYRG IV SCH
--- NOTE | 2025-05-13 06:51 | DVHPN2 ---
Progress Note - Dictate Date Seen: May 13, 2025 Medical Necessity Reason Pt with a Central, PICC or Fol: No vital signs Vital Sign Date Time Temp Pulse Resp B/P (MAP) Pulse Ox O2 Delivery O2 Flow Rate FiO2 05/13/25 05:55 100 18 98 05/13/25 05:48 Room Air 0.0 05/13/25 05:48 21 05/13/25 05:00 97.1 155/96 (115) 97.1 Total Intake and Output 05/12/25 05/12/25 05/13/25 15:00 23:00 07:00 Intake Total 167 ml 533 ml Output Total 520 ml Balance -353 ml 533 ml medications Current Medications Medications Dose Ordered Sig/Wai Route Start Time Stop Time Status Last Admin Dose Admin Nitroglycerin 0.4 mg Q5MINP PRN SL 05/09/25 23:15 Morphine Sulfate 2 mg Q30M PRN IV 05/09/25 23:15 Albuterol 2.5 mg Q6HR NEB 05/10/25 00:00 05/13/25 05:48 2.5 MG Acetylcysteine 200 mg Q6HR NEB 05/10/25 00:00 05/13/25 05:48 200 MG Vancomycin HCl 0 ml @ 0 mls/hr UD IV 05/09/25 23:15 Diagnostic Test (Pha) 1 strip Q6HR 05/10/25 02:00 05/13/25 06:29 1 STRIP Dextrose 50 ml UD PRN IV 05/10/25 01:45 05/10/25 23:49 50 ML Pantoprazole Sodium 40 mg DAILY IV 05/10/25 10:00 05/12/25 10:22 40 MG Morphine Sulfate 1 mg Q6HP PRN IV 05/10/25 05:15 05/13/25 03:05 1 MG Meropenem 50 ml @ 17 mls/hr Q12HR IV 05/10/25 22:00 05/12/25 21:56 17 MLS/HR Aspirin 81 mg DAILY PO 05/11/25 10:00 Dextrose/Sodium Chloride 1,000 ml @ 75 mls/hr [id number] IV 05/11/25 17:00 05/12/25 20:01 75 MLS/HR Mupirocin 1 applic BID EACHNOSTRI 05/11/25 22:00 05/16/25 21:59 05/12/25 21:51 1 APPLIC Hydralazine HCl 10 mg Q6HP PRN IV 05/12/25 06:30 05/12/25 20:38 10 MG Ceftriaxone Sodium 50 ml @ 100 mls/hr DAILY@09 IV 05/13/25 09:00 UNV Insulin Human Regular Q6HR SC 05/12/25 18:00 Fluconazole 100 ml @ 100 mls/hr DAILY@1800 IV 05/13/25 18:00 laboratory and microbiology Laboratory Tests 05/12/25 04:08 Test 05/12/25 04:08 Range/Units Serum Glucose 198 H 74-106 mg/dL Assessment/Plan Patient is a 44-year-old gentleman who presented with altered mental status/shortness of breath. He is at baseline poor historian. Information was obtained by reviewing the chart and communicating with staff. It seems that since arrival the patient was found to have severe sepsis and multiorgan dysfunction. He has been on supplemental oxygen. 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 Reportedly on arrival to Emergency room blood pressure was low on later improved. Cardiology is involved for cardiac aspects of care. There is no report of chest pain. Lying flat in bed. No JVD. Mucosa is pink and wet. Scattered rhonchi in the lungs is heard. Cardiac: Regular, tachycardic, no thrill. Systolic murmur 2/6 in apex is heard. Abdomen is soft. There is no gross mass. There is no hepatomegaly. Extremities do not reveal edema. Dorsalis pedis is 2+ bilateral Past medical history reportedly includes old history of CVA with poor functional capacity, CKD, hypertension, hyperlipidemia, diabetes mellitus, repeated history of sepsis, history of urethral stricture and recurrent UTI, history of phimosis anemia and bed-bound at baseline. There was question if the patient has baseline history of diastolic heart failure Echocardiogram of December 2024 revealed ejection fraction of 64%, trace MR/TR and right ventricular systolic pressure of 34 mm Hg. WBC: 26.7 - 20.8 - 29.9 - 29.4 Hemoglobin: 5.9 - 6.8 - 7.8 - 9.0 BNP: 528.66 Creatinine: 5.69 - 5.7 - 4.72 - 4.86 - 4.67 - 4.73 - 4.70 - 4.77 - 4.84 Potassium: 8.0 - 7.6 - 5.8 - 5.8 - 5.0 - 5.0 - 5.0 - 4.9 Sodium: 147 - 146 - 153 - 154 - 157 - 155 - 154 - 152 AST/ALT: 96/66 - 468/478 - 257/349 Troponin (high sensitive): 81 - 89 - 92 Chest x-ray reported: IMPRESSION: Findings suggest a mild degree of pulmonary edema which is decreased compared to the prior study on 01/11/2025. Pneumonia is considered less likely Repeat chest xry revealed: IMPRESSION: 1. No interval change. Renal ultrasound reported: IMPRESSION: Bilateral medical renal disease. EKG revealed sinus tachycardia Tele shows sinus tachycardia Echocardiogram revealed: Left ventricle: Mild diffuse hypokinesis of left ventricle was seen. LVEF was around 50%. Right ventricle was normal size with mildly reduced systolic function. Both atria were normal size. Aortic valve was trileaflet. There was no aortic insufficiency/stenosis. There was mild mitral/tricuspid regurgitation. There was no pulmonary valve insufficiency. Right ventricular systolic pressure was assessed at 35 mm Hg. There was trace pericardial effusion. Patient is a 44-year-old gentleman who was at baseline bed-bound with old history of CVA who presented with altered mental status and shortness of breath. Presentation is in favor acute respiratory failure secondary to sepsis. Multiorgan failure secondary to sepsis is considered. Minimal increase in troponin is considered to reflect demand ischemia in a patient with questionable history of diastolic heart failure. In December 2024 ejection fraction in echocardiogram was 64% with no specific increase in right ventricular systolic pressure. Acute respiratory failure Sepsis Encephalopathy, metabolic versus toxic LISANDRO on CKD ATN Demand ischemia Hypernatremia Hypokalemia Anemia Cardiac suggestion for management: Manage in tele Fluid resuscitation as per Nephrology Follow-up electrolytes and kidney function tests and correct abnormalities Aspirin: 81 mg daily with old history of CVA is suggested DVT prophylaxis as per primary team Control hypertension Management of sepsis/infection as per primary team Pulmonary follow-up Nephrology follow up Further evaluation and management depends on the above and clinical course A total of 55 minutes was spent reviewing the patient record, examining the patient, making a diagnostic and therapeutic plan, discussing this plan with medical personnel, following up on diagnostic studies and following the patient for clinical stability excluding any and all procedures. At least 50% of this time was spent in direct, [id number] contact. Thank you for allowing me to participate in this patient's care. Further recommendations will depend on patient's clinical course. Please do not hesitate to contact me if you have any questions or concerns. This medical document was created using electronic medical record system with [employer] computerized dictation system. Although this document has been carefully reviewed, there may still be some phonetic and typographical errors. These areas are purely typographical due to the imperfection of the software programs, and do not reflect any compromise in the patient's medical care. Plan discussed with: Other (nurse) CC Plasma Assessment Blood Product Administration S: [id number] FAN HAMEED MD May 13, 2025 06:51
[2025-05-13] MEDS ORDERED: cefTRIAXone 1GM/50ML D5W 50 ML IV SCH (09:00)
--- NOTE | 2025-05-13 09:45 | DVHPN2 ---
Progress Note - Dictate Date Seen: May 13, 2025 Medical Necessity Reason Pt with a Central, PICC or Fol: No vital signs Vital Sign Date Time Temp Pulse Resp B/P (MAP) Pulse Ox O2 Delivery O2 Flow Rate FiO2 05/13/25 09:32 97.4 96 20 158/99 (118) 95 97.4 05/13/25 05:48 Room Air 0.0 05/13/25 05:48 21 Total Intake and Output 05/12/25 05/12/25 05/13/25 15:00 23:00 07:00 Intake Total 167 ml 533 ml Output Total 520 ml Balance -353 ml 533 ml medications Current Medications Medications Dose Ordered Sig/Wai Route Start Time Stop Time Status Last Admin Dose Admin Nitroglycerin 0.4 mg Q5MINP PRN SL 05/09/25 23:15 Morphine Sulfate 2 mg Q30M PRN IV 05/09/25 23:15 Albuterol 2.5 mg Q6HR NEB 05/10/25 00:00 05/13/25 05:48 2.5 MG Acetylcysteine 200 mg Q6HR NEB 05/10/25 00:00 05/13/25 05:48 200 MG Vancomycin HCl 0 ml @ 0 mls/hr UD IV 05/09/25 23:15 Diagnostic Test (Pha) 1 strip Q6HR 05/10/25 02:00 05/13/25 06:29 1 STRIP Dextrose 50 ml UD PRN IV 05/10/25 01:45 05/10/25 23:49 50 ML Pantoprazole Sodium 40 mg DAILY IV 05/10/25 10:00 05/12/25 10:22 40 MG Morphine Sulfate 1 mg Q6HP PRN IV 05/10/25 05:15 05/13/25 03:05 1 MG Meropenem 50 ml @ 17 mls/hr Q12HR IV 05/10/25 22:00 05/12/25 21:56 17 MLS/HR Aspirin 81 mg DAILY PO 05/11/25 10:00 Dextrose/Sodium Chloride 1,000 ml @ 75 mls/hr [id number] IV 05/11/25 17:00 05/12/25 20:01 75 MLS/HR Mupirocin 1 applic BID EACHNOSTRI 05/11/25 22:00 05/16/25 21:59 05/12/25 21:51 1 APPLIC Hydralazine HCl 10 mg Q6HP PRN IV 05/12/25 06:30 05/12/25 20:38 10 MG Ceftriaxone Sodium 50 ml @ 100 mls/hr DAILY@09 IV 05/13/25 09:00 UNV Insulin Human Regular Q6HR SC 05/12/25 18:00 Fluconazole 100 ml @ 100 mls/hr DAILY@1800 IV 05/13/25 18:00 objective General Appearance: alert, no distress HEENT: EOMI, PERRLA, normal external inspect of ears, no icterus, no nasal drainage Neck: no carotid bruit, no jugular venous distention (JVD), no lymphadenopathy Chest: normal thorax Respiratory: clear to auscultation, normal air movement Cardiovascular: regular rate and rhythm, no diastolic murmur, no jugular venous distention (JVD), no rub, no systolic murmur Abdominal: soft, no hepatomegaly, no mass, no splenomegaly, no tenderness Genitourinary: grossly normal external Musculoskeletal: no joint tenderness, no swelling Extremities: normal pulses, no calf tenderness, no clubbing, no cyanosis, no edema Skin: no bruising, no jaundice, no rash Neurological: alert, No focal deficit laboratory and microbiology Laboratory Tests 05/12/25 04:08 Test 05/12/25 04:08 Range/Units Serum Glucose 198 H 74-106 mg/dL Problem List 1. Sepsis IV Abx 2. Acute on chronic anemia Medications, Monitoring 3. LISANDRO with CKD 3b Nephrology consult 4. Bed bound Monitoring 5. CVA with residual deficits Monitoring 6. NSTEMI II, demand ischemia Cardiology consult, monitor EKG 7. MRSA w/ Nares Medications, Monitoring 8. Hyperkalemia r/t LISNADRO Hyperkalemia Tx 9. Hypoglycemia Medications, Monitoring Assessment/Plan Subjective Patient remains nonverbal at this time. Objective I spoke with patient's mom. Patient is waking up more. Patient was admitted for sepsis and LISANDRO with CKD superimposed on stage IIIb. Patient was previously on hospice. Chest x-ray shows pneumonia. Patient was found to have sepsis related to pneumonia. Patient has NSTEMI type II most likely related to pneumonia and hypoxemia. Patient is bedbound from history of CVA. Urine culture is negative. Blood culture is negative. COVID and influenza is negative. WBC count is 29. Plan Continue antibiotics for sepsis and pneumonia with meropenem and vancomycin. Monitor respiratory status and neurostatus. Planning to DC to hospice services when patient is more stable. Plan discussed with: Patient, Other CC Plasma Assessment Blood Product Administration S: [id number] RAÚL STEEL NP May 13, 2025 09:45
[2025-05-13 10:26] LABS: Hematocrit 29.0 % (41.0-53.0); Hemoglobin 9.5 g/dL (13.5-17.5); Mean Corpuscular Hemoglobin 29.0 pg (28.0-32.0); Mean Corpuscular Volume 88.5 fL (80.0-100.0)
--- NOTE | 2025-05-13 10:45 | DVHPN2 ---
Progress Note Date Seen: May 13, 2025 Medical Necessity Reason Pt with a Central, PICC or Fol: No Subjective Patient reports: Other (poor historian) Review of Systems: Deferred Objective vital signs Vital Sign Date Time Temp Pulse Resp B/P (MAP) Pulse Ox O2 Delivery O2 Flow Rate FiO2 05/13/25 10:14 158/99 05/13/25 09:32 97.4 96 20 95 97.4 05/13/25 05:48 Room Air 0.0 05/13/25 05:48 21 Total Intake and Output 05/12/25 05/12/25 05/13/25 14:59 22:59 06:59 Intake Total 167 ml 533 ml Output Total 520 ml Balance -353 ml 533 ml medications Current Medications Medications Dose Ordered Sig/Wai Route Start Time Stop Time Status Last Admin Dose Admin Nitroglycerin 0.4 mg Q5MINP PRN SL 05/09/25 23:15 Morphine Sulfate 2 mg Q30M PRN IV 05/09/25 23:15 Albuterol 2.5 mg Q6HR NEB 05/10/25 00:00 05/13/25 05:48 2.5 MG Acetylcysteine 200 mg Q6HR NEB 05/10/25 00:00 05/13/25 05:48 200 MG Vancomycin HCl 0 ml @ 0 mls/hr UD IV 05/09/25 23:15 Diagnostic Test (Pha) 1 strip Q6HR 05/10/25 02:00 05/13/25 06:29 1 STRIP Dextrose 50 ml UD PRN IV 05/10/25 01:45 05/10/25 23:49 50 ML Pantoprazole Sodium 40 mg DAILY IV 05/10/25 10:00 05/13/25 10:15 40 MG Morphine Sulfate 1 mg Q6HP PRN IV 05/10/25 05:15 05/13/25 03:05 1 MG Meropenem 50 ml @ 17 mls/hr Q12HR IV 05/10/25 22:00 05/13/25 10:22 17 MLS/HR Aspirin 81 mg DAILY PO 05/11/25 10:00 Dextrose/Sodium Chloride 1,000 ml @ 75 mls/hr [id number] IV 05/11/25 17:00 05/12/25 20:01 75 MLS/HR Mupirocin 1 applic BID EACHNOSTRI 05/11/25 22:00 05/16/25 21:59 05/13/25 10:21 1 APPLIC Hydralazine HCl 10 mg Q6HP PRN IV 05/12/25 06:30 05/13/25 10:14 10 MG Ceftriaxone Sodium 50 ml @ 100 mls/hr DAILY@09 IV 05/13/25 09:00 UNV Insulin Human Regular Q6HR SC 05/12/25 18:00 Fluconazole 100 ml @ 100 mls/hr DAILY@1800 IV 05/13/25 18:00 Examination: GENERAL:Abnormal, MSK:Abnormal, NEURO:Abnormal laboratory and microbiology Laboratory Tests 05/13/25 10:00 Test 05/13/25 10:00 Range/Units Serum Glucose Pending Microbiology Date/Time Source Procedure Growth Status 05/11/25 23:45 Voided Urine Urine Culture - Preliminary Resulted 05/10/25 02:49 Nose MRSA Screen - Final Methicillin Resistant S.aureus Complete 05/09/25 19:30 Blood Blood Culture - Preliminary NO GROWTH AFTER 72 HOURS OF INCUBATION. Resulted Problem List/Assessment/Plan Problem List/Assessment/Plan Acute kidney injury likely acute tubular necrosis in the setting of severe sepsis Severe sepsis Metabolic acidosis Encephalopathy Hypernatremia Hyperkalemia Hypocalcemia Chronic Lindsay for greater than one year Multiple admissions in the past one year Previously on hospice before coming here Recommendations labs pending d5 half NS for sodium correction Discussed in detail with mother who is bedside recommended patient might need dialysis for solute clearance however patient's mother mentioned she does not want dialysis for the patient as he has been sick for the last one year and very weak and patient used to be on hospice before coming here We will recommend conservative management for now respect family wishes Potassium is better Plan discussed with: Other My Orders My Orders Orders - ROSE BROWNLEE MD Procedure Category Date Status Time Basic Metabolic Panel LAB 05/13/25 In Process 08:50 Basic Metabolic Panel LAB 05/14/25 Verified 05:00 Basic Metabolic Panel LAB 05/15/25 Verified 05:00 Basic Metabolic Panel LAB 05/16/25 Verified 05:00 Basic Metabolic Panel LAB 05/17/25 Verified 05:00 Basic Metabolic Panel LAB 05/18/25 Verified 05:00 Basic Metabolic Panel LAB 05/19/25 Verified 05:00 Basic Metabolic Panel LAB 05/20/25 Verified 05:00 CC Plasma Assessment Blood Product Administration S: [id number] ROSE BROWNLEE MD May 13, 2025 10:45
[2025-05-13 10:49] LABS: Total Cells Counted 100.0 (100)
[2025-05-13 11:18] LABS: Potassium 4.4 mmol/L (3.5-5.1)
[2025-05-13 11:19] LABS: Anion Gap 18 (5-15)
[2025-05-13 11:24] LABS: BUN/Creatinine Ratio 28.2 (10.0-20.0)
[2025-05-13 11:27] LABS: Calcium 6.2 mg/dL (8.7-10.4); Carbon Dioxide 17 mmol/L (20-31); Chloride 115 mmol/L (98-107); Glucose 142 mg/dL (74-106); Sodium 150 mmol/L (136-145)
[2025-05-13 11:29] LABS: Blood Urea Nitrogen 127 mg/dL (9-23)
[2025-05-13] MEDS ORDERED: CLINIMIX PER PHARMACY 0 ML IV SCH (16:45)
--- NOTE | 2025-05-13 17:41 | DVHPNRES ---
Progress Note Date Seen: May 13, 2025 Resident Creating Document: EYAL HI RESIDENT Medical Necessity Reason Pt with a Central, PICC or Fol: No Medical Necessity Reason Patient is seen and examined today at bedside at his baseline nonverbal. Mother by the bedside. Per medical chart review patient is also being followed by the instructor psychiatric aide who had recommended dialysis but his mother is not in agreement with the plan. She prefers conservative management. Of note patient's WBC was elevated today. BUN is slightly coming down currently at 1:27 a.m., sodium is at 1:50 a.m. patient is currently on D5 W with half-normal saline. Currently on meropenem, vancomycin, and fluconazole. Subjective Review of Systems unable to obtained. patient nonverbal Objective vital signs Vital Sign Date Time Temp Pulse Resp B/P (MAP) Pulse Ox O2 Delivery O2 Flow Rate FiO2 05/13/25 16:32 97.6 94 20 153/85 (107) 95 97.6 05/13/25 12:02 Room Air 0.0 05/13/25 12:02 21 Total Intake and Output 05/12/25 05/12/25 05/13/25 15:00 23:00 07:00 Intake Total 167 ml 533 ml Output Total 520 ml Balance -353 ml 533 ml medications Current Medications Medications Dose Ordered Sig/Wai Route Start Time Stop Time Status Last Admin Dose Admin Nitroglycerin 0.4 mg Q5MINP PRN SL 05/09/25 23:15 Morphine Sulfate 2 mg Q30M PRN IV 05/09/25 23:15 Albuterol 2.5 mg Q6HR NEB 05/10/25 00:00 05/13/25 12:01 2.5 MG Acetylcysteine 200 mg Q6HR NEB 05/10/25 00:00 05/13/25 12:02 200 MG Vancomycin HCl 0 ml @ 0 mls/hr UD IV 05/09/25 23:15 Diagnostic Test (Pha) 1 strip Q6HR 05/10/25 02:00 05/13/25 18:00 05/13/25 12:10 1 STRIP Dextrose 50 ml UD PRN IV 05/10/25 01:45 05/13/25 18:00 05/10/25 23:49 50 ML Pantoprazole Sodium 40 mg DAILY IV 05/10/25 10:00 05/13/25 10:15 40 MG Morphine Sulfate 1 mg Q6HP PRN IV 05/10/25 05:15 05/13/25 03:05 1 MG Meropenem 50 ml @ 17 mls/hr Q12HR IV 05/10/25 22:00 05/13/25 10:22 17 MLS/HR Aspirin 81 mg DAILY PO 05/11/25 10:00 Dextrose/Sodium Chloride 1,000 ml @ 75 mls/hr [id number] IV 05/11/25 17:00 05/12/25 20:01 75 MLS/HR Mupirocin 1 applic BID EACHNOSTRI 05/11/25 22:00 05/16/25 21:59 05/13/25 10:21 1 APPLIC Hydralazine HCl 10 mg Q6HP PRN IV 05/12/25 06:30 05/13/25 10:14 10 MG Ceftriaxone Sodium 50 ml @ 100 mls/hr DAILY@09 IV 05/13/25 09:00 UNV Insulin Human Regular Q6HR SC 05/12/25 18:00 05/13/25 18:00 Fluconazole 100 ml @ 100 mls/hr DAILY@1800 IV 05/13/25 18:00 Amino Acids 0 ml @ 0 mls/hr PER PHARMACY IV 05/13/25 16:45 Amino Acids/ Electrolytes/ Dextrose 1,000 ml @ 41 mls/hr DAILY@2200 IV 05/13/25 22:00 Diagnostic Test (Pha) 1 strip Q6HR 05/13/25 00:00 Insulin Human Regular FOLLOW SLIDING SCALE Q6HR SC 05/13/25 00:00 Dextrose 50 ml UD IV 05/13/25 00:00 Examination General Appearance: awake, confused. Cachectic HEENT: conjunctival pallor seen, no icterus, no cyanosis, Respiratory: Clear to auscultation, Normal air movement on ROOM AIR Cardiovascular: Regular rate, Normal S1, Normal S2, No murmurs, no chest wall tenderness Abdominal: NO distention, no tenderness, bowel sounds present, no scars noted Extremities: muscle wasting Skin: Dry; No rashes, No breakdown, No significant lesion Neuro: bed-bound Psych/Mental Status: nonverbal laboratory and microbiology Laboratory Tests 05/13/25 10:00 Test 05/13/25 10:00 Range/Units Serum Glucose 142 H 74-106 mg/dL Microbiology Date/Time Source Procedure Growth Status 05/11/25 23:45 Voided Urine Urine Culture - Preliminary Resulted 05/10/25 02:49 Nose MRSA Screen - Final Methicillin Resistant S.aureus Complete 05/09/25 19:30 Blood Blood Culture - Preliminary NO GROWTH AFTER 72 HOURS OF INCUBATION. Resulted Problem List/Assessment/Plan Problem List/Assessment/Plan Assessment/Plan Neuro: Acute metabolic encephalopathy likely due to sepsis, uremia H/o CVA - IV antibiotics,See below - IV fluids Cardiovascular NSTEMI likely type 2 due to demand ischemia - echo from December 2024 shows LVEF 64% Respiratory Acute hypoxemic respiratory failure, POA - CXR: Findings suggest a mild degree of pulmonary edema which is decreased compared to the prior study on 01/11/2025. Pneumonia is considered less likely. - 2L of oxygen - AB- ABG to be obtained, VBG shows metabolic acidosis with a base excess of - 24.9 - 100 mEq of sodium bicarb - No more ABG Genitourinary LISANDRO on CKD stage 3 likely due VMN vs ATN CKD stage 3 Chronic Lindsay for greater than one year Nephrology on board: recommended dialysis in the next 24 hours if renal function do not improve. however patient's mother mentioned she does not want dialysis for the patient as he has been sick for the last one year and very weak We will recommend conservative management for now Infectious Disease: Severe sepsis likely due to pneumonia, UTI Pneumonia likely due to Gram +/- bacteria, possible aspiration Indwelling Lindsay's catheter long-term, UTI - broad-spectrum IV antibiotics vancomycin and meropenem, fluconazole - aggressive fluid replacement - change Lindsay catheter - Urine culture: yeast, Gram negative rods - blood cultures pending -- duo nebs q.6 hours, acetylcysteine q.6 hours --> Meropenem and vancomycin, add fluconazole Metabolic Hyperkalemia Hypernatremia Hypocalcemia Anion gap metabolic acidosis likely due to uremia - IV fluids - Lasix IV ( not used aggressively because patient was septic low blood pressure) - hyperkalemia treatment protocols given - ABG to be obtained, VBG shows metabolic acidosis with a base excess of -24.9 - 100 mEq of sodium bicarb- Stopped Endocrine Hyperglycemia with a history of diabetes mellitus Probable starvation ketosis Severe protein calorie malnutrition Cachexia - currently patient NPO - mild ISS - D5 half NS IV fluid Hematology: Microcytic normochromic anemia Severe anemia - 1 unit of PRBC transfused - Daily CBC, if less than 7 transfuse another PRBC PUD prophylaxis: Protonix DVT prophylaxis: Currently held because of low hemoglobin, SCD Disposition: Telemetry Plan: Previously on hospice before coming here. To send him back to Hospice. Goals of care discussed for more than 25 minutes, Code status: Full Case discussed with with the patient's primary RN and Dr. Jacobs Plan discussed with: Other (nurse, mother) My Orders My Orders Orders - EYAL HI Procedure Category Date Status Time Fluconazole PHA 05/13/25 In Process 200mg/100ml (Diflucan 18:00 CC Plasma Assessment Blood Product Administration S: [id number] Date of Service: May 13, 2025 Billing Provider: SYD JACOBS MD Common Visit Codes: NOT BILLABLE EYAL HI May 13, 2025 17:41 SYD JACOBS MD May 18, 2025 13:51
[2025-05-13] MEDS: FLUCONAZOLE 200MG/100ML 100 ML IV SCH (18:46)
[2025-05-13] MEDS: AMINO ACID INFUSION IN D10W 1,000 ML IV SCH (23:34)
[2025-05-13] MEDS: ACCU-CHEK COMFORT CURVE STRIP VI SCH (23:36)
[2025-05-14] VITALS (15 sets, daily range): BP systolic 146–164; BP diastolic 78–95; PULSE 85–95; RESP 16–21; TEMP 97.5–97.8; O2SAT 95–100
--- NOTE | 2025-05-14 06:43 | DVHPN2 ---
Progress Note - Dictate Date Seen: May 14, 2025 Medical Necessity Reason Pt with a Central, PICC or Fol: No vital signs Vital Sign Date Time Temp Pulse Resp B/P (MAP) Pulse Ox O2 Delivery O2 Flow Rate FiO2 05/14/25 05:54 91 18 100 05/14/25 05:48 Room Air* 0 21 05/14/25 05:00 97.7 157/95 (115) 97.7 Total Intake and Output 05/13/25 05/13/25 05/14/25 14:59 22:59 06:59 Intake Total 50 ml 100 ml 0 ml Output Total 700 ml 400 ml Balance 50 ml -600 ml -400 ml medications Current Medications Medications Dose Ordered Sig/Wai Route Start Time Stop Time Status Last Admin Dose Admin Nitroglycerin 0.4 mg Q5MINP PRN SL 05/09/25 23:15 Morphine Sulfate 2 mg Q30M PRN IV 05/09/25 23:15 Albuterol 2.5 mg Q6HR NEB 05/10/25 00:00 05/14/25 05:48 2.5 MG Acetylcysteine 200 mg Q6HR NEB 05/10/25 00:00 05/14/25 05:48 200 MG Vancomycin HCl 0 ml @ 0 mls/hr UD IV 05/09/25 23:15 Pantoprazole Sodium 40 mg DAILY IV 05/10/25 10:00 05/13/25 10:15 40 MG Morphine Sulfate 1 mg Q6HP PRN IV 05/10/25 05:15 05/13/25 03:05 1 MG Meropenem 50 ml @ 17 mls/hr Q12HR IV 05/10/25 22:00 05/13/25 23:36 17 MLS/HR Aspirin 81 mg DAILY PO 05/11/25 10:00 Dextrose/Sodium Chloride 1,000 ml @ 75 mls/hr [id number] IV 05/11/25 17:00 05/13/25 23:35 75 MLS/HR Mupirocin 1 applic BID EACHNOSTRI 05/11/25 22:00 05/16/25 21:59 05/13/25 10:21 1 APPLIC Hydralazine HCl 10 mg Q6HP PRN IV 05/12/25 06:30 05/13/25 18:46 10 MG Ceftriaxone Sodium 50 ml @ 100 mls/hr DAILY@09 IV 05/13/25 09:00 UNV Fluconazole 100 ml @ 100 mls/hr DAILY@1800 IV 05/13/25 18:00 05/13/25 18:46 100 MLS/HR Amino Acids 0 ml @ 0 mls/hr PER PHARMACY IV 05/13/25 16:45 Amino Acids/ Electrolytes/ Dextrose 1,000 ml @ 41 mls/hr DAILY@2200 IV 05/13/25 22:00 05/13/25 23:34 41 MLS/HR Diagnostic Test (Pha) 1 strip Q6HR 05/13/25 00:00 05/13/25 23:36 1 STRIP Insulin Human Regular FOLLOW SLIDING SCALE Q6HR SC 05/13/25 00:00 Dextrose 50 ml UD IV 05/13/25 00:00 laboratory and microbiology Laboratory Tests 05/13/25 10:00 Test 05/13/25 10:00 Range/Units Serum Glucose 142 H 74-106 mg/dL Assessment/Plan Patient is a 44-year-old gentleman who presented with altered mental status/shortness of breath. He is at baseline poor historian. Information was obtained by reviewing the chart and communicating with staff. It seems that since arrival the patient was found to have severe sepsis and multiorgan dysfunction. He has been on supplemental oxygen. 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 Reportedly on arrival to Emergency room blood pressure was low on later improved. Cardiology is involved for cardiac aspects of care. There is no report of chest pain. Lying flat in bed. No JVD. Mucosa is pink and wet. Scattered rhonchi in the lungs is heard. Cardiac: Regular, tachycardic, no thrill. Systolic murmur 2/6 in apex is heard. Abdomen is soft. There is no gross mass. There is no hepatomegaly. Extremities do not reveal edema. Dorsalis pedis is 2+ bilateral Past medical history reportedly includes old history of CVA with poor functional capacity, CKD, hypertension, hyperlipidemia, diabetes mellitus, repeated history of sepsis, history of urethral stricture and recurrent UTI, history of phimosis anemia and bed-bound at baseline. There was question if the patient has baseline history of diastolic heart failure Echocardiogram of December 2024 revealed ejection fraction of 64%, trace MR/TR and right ventricular systolic pressure of 34 mm Hg. WBC: 26.7 - 20.8 - 29.9 - 29.4 - 28.4 Hemoglobin: 5.9 - 6.8 - 7.8 - 9.0 - 9.5 BNP: 528.66 Creatinine: 5.69 - 5.7 - 4.72 - 4.86 - 4.67 - 4.73 - 4.70 - 4.77 - 4.84 - 4.51 Potassium: 8.0 - 7.6 - 5.8 - 5.8 - 5.0 - 5.0 - 5.0 - 4.9 - 4.4 Sodium: 147 - 146 - 153 - 154 - 157 - 155 - 154 - 152 - 150 AST/ALT: 96/66 - 468/478 - 257/349 Troponin (high sensitive): 81 - 89 - 92 Chest x-ray reported: IMPRESSION: Findings suggest a mild degree of pulmonary edema which is decreased compared to the prior study on 01/11/2025. Pneumonia is considered less likely Repeat chest xry revealed: IMPRESSION: 1. No interval change. Renal ultrasound reported: IMPRESSION: Bilateral medical renal disease. EKG revealed sinus tachycardia Tele shows sinus tachycardia Echocardiogram revealed: Left ventricle: Mild diffuse hypokinesis of left ventricle was seen. LVEF was around 50%. Right ventricle was normal size with mildly reduced systolic function. Both atria were normal size. Aortic valve was trileaflet. There was no aortic insufficiency/stenosis. There was mild mitral/tricuspid regurgitation. There was no pulmonary valve insufficiency. Right ventricular systolic pressure was assessed at 35 mm Hg. There was trace pericardial effusion. Patient is a 44-year-old gentleman who was at baseline bed-bound with old history of CVA who presented with altered mental status and shortness of breath. Presentation is in favor acute respiratory failure secondary to sepsis. Multiorgan failure secondary to sepsis is considered. Minimal increase in troponin is considered to reflect demand ischemia in a patient with questionable history of diastolic heart failure. In December 2024 ejection fraction in echocardiogram was 64% with no specific increase in right ventricular systolic pressure. Acute respiratory failure Sepsis Encephalopathy, metabolic versus toxic LISANDRO on CKD ATN Demand ischemia Hypernatremia Hypokalemia Anemia Cardiac suggestion for management: Manage in tele Fluid resuscitation as per Nephrology Follow-up electrolytes and kidney function tests and correct abnormalities Aspirin: 81 mg daily with old history of CVA is suggested DVT prophylaxis as per primary team Control hypertension Management of sepsis/infection as per primary team Pulmonary follow-up Nephrology follow up Further evaluation and management depends on the above and clinical course A total of 55 minutes was spent reviewing the patient record, examining the patient, making a diagnostic and therapeutic plan, discussing this plan with medical personnel, following up on diagnostic studies and following the patient for clinical stability excluding any and all procedures. At least 50% of this time was spent in direct, [id number] contact. Thank you for allowing me to participate in this patient's care. Further recommendations will depend on patient's clinical course. Please do not hesitate to contact me if you have any questions or concerns. This medical document was created using electronic medical record system with [employer] computerized dictation system. Although this document has been carefully reviewed, there may still be some phonetic and typographical errors. These areas are purely typographical due to the imperfection of the software programs, and do not reflect any compromise in the patient's medical care. Dietary Evaluation Review Comments: 1. TPN per pharmacy to meet Pt's daily needs at 48g Protein 1000kcal, when Tube feeding is not feasible. 2. Nepro@25 ml/hr, providing 49g proteinm 1062 [id number] free water, once NG feeding becomes feasible, Start at 10ml/hr and increase 10ml Q6hr till reach the goal rate. 3. Renal standard CCHO-60 once pt can tolerate PO feedings Expected Outcomes/Goals: gradual wt gain Plan discussed with: Other (nurse) CC Plasma Assessment Blood Product Administration S: [id number] FAN HAMEED MD May 14, 2025 06:43
[2025-05-14 07:15] LABS: Hematocrit 26.9 % (41.0-53.0); Hemoglobin 8.5 g/dL (13.5-17.5); Mean Corpuscular Hemoglobin 28.8 pg (28.0-32.0); Mean Corpuscular Volume 90.7 fL (80.0-100.0); Nucleated Red Blood Cells % 3.7 %
[2025-05-14 07:19] LABS: Anion Gap 18 (5-15); BUN/Creatinine Ratio 25.8 (10.0-20.0); Potassium 3.9 mmol/L (3.5-5.1); Total Protein 5.8 g/dL (5.7-8.2)
[2025-05-14 07:34] LABS: Blood Urea Nitrogen 115 mg/dL (9-23); Carbon Dioxide 15 mmol/L (20-31); Chloride 117 mmol/L (98-107); Glucose 233 mg/dL (74-106); Sodium 150 mmol/L (136-145)
[2025-05-14 07:35] LABS: Alanine Aminotransferase 118 U/L (7-40); Albumin 2.7 g/dL (3.2-4.8); Alkaline Phosphatase 257 U/L (46-116); Bilirubin, Total 0.2 mg/dL (0.2-1.0); Calcium 6.8 mg/dL (8.7-10.4)
[2025-05-14 08:01] LABS: Magnesium 1.2 mg/dL (1.6-2.6)
--- NOTE | 2025-05-14 09:37 | DVH ---
CHEST RADIOGRAPH Indication: pna Technique: Single frontal view of the chest was obtained COMPARISON: XY CHEST XRAY 1 VIEW on DOS: 05/11/25, XY CHEST PORTABLE on DOS: 05/09/25, XY CHEST PORTABL E on DOS: 01/11/25, XY CHEST PORTABLE on DOS: 01/10/25, XY CHEST XRAY 1 VIEW on DOS: 01/09/25 FINDINGS: Lines and Tubes: None Lungs: Multifocal airspace disease Pleura: No effusion. No pneumothorax. Cardiomediastinal contours: Cardiomegaly Bones: Unremarkable IMPRESSION: Increased multifocal airspace disease
--- NOTE | 2025-05-14 09:57 | DVHPN2 ---
Progress Note Date Seen: May 14, 2025 Medical Necessity Reason Pt with a Central, PICC or Fol: No Subjective Patient reports: No new complaints Other Systems: Patient seen and examined by myself today in follow-up, muscle at the bedside Objective vital signs Vital Sign Date Time Temp Pulse Resp B/P (MAP) Pulse Ox O2 Delivery O2 Flow Rate FiO2 05/14/25 08:00 Room Air* 0 21 05/14/25 05:54 91 18 100 05/14/25 05:00 97.7 157/95 (115) 97.7 Total Intake and Output 05/13/25 05/13/25 05/14/25 15:00 23:00 07:00 Intake Total 50 ml 100 ml 0 ml Output Total 700 ml 400 ml Balance 50 ml -600 ml -400 ml medications Current Medications Medications Dose Ordered Sig/Wai Route Start Time Stop Time Status Last Admin Dose Admin Nitroglycerin 0.4 mg Q5MINP PRN SL 05/09/25 23:15 Morphine Sulfate 2 mg Q30M PRN IV 05/09/25 23:15 Albuterol 2.5 mg Q6HR NEB 05/10/25 00:00 05/14/25 05:48 2.5 MG Acetylcysteine 200 mg Q6HR NEB 05/10/25 00:00 05/14/25 05:48 200 MG Vancomycin HCl 0 ml @ 0 mls/hr UD IV 05/09/25 23:15 Pantoprazole Sodium 40 mg DAILY IV 05/10/25 10:00 05/13/25 10:15 40 MG Morphine Sulfate 1 mg Q6HP PRN IV 05/10/25 05:15 05/13/25 03:05 1 MG Meropenem 50 ml @ 17 mls/hr Q12HR IV 05/10/25 22:00 05/13/25 23:36 17 MLS/HR Aspirin 81 mg DAILY PO 05/11/25 10:00 Dextrose/Sodium Chloride 1,000 ml @ 75 mls/hr [id number] IV 05/11/25 17:00 05/13/25 23:35 75 MLS/HR Mupirocin 1 applic BID EACHNOSTRI 05/11/25 22:00 05/16/25 21:59 05/13/25 10:21 1 APPLIC Hydralazine HCl 10 mg Q6HP PRN IV 05/12/25 06:30 05/13/25 18:46 10 MG Ceftriaxone Sodium 50 ml @ 100 mls/hr DAILY@09 IV 05/13/25 09:00 UNV Fluconazole 100 ml @ 100 mls/hr DAILY@1800 IV 05/13/25 18:00 05/13/25 18:46 100 MLS/HR Amino Acids 0 ml @ 0 mls/hr PER PHARMACY IV 05/13/25 16:45 Amino Acids/ Electrolytes/ Dextrose 1,000 ml @ 41 mls/hr DAILY@2200 IV 05/13/25 22:00 05/13/25 23:34 41 MLS/HR Diagnostic Test (Pha) 1 strip Q6HR 05/13/25 00:00 05/14/25 06:52 1 STRIP Insulin Human Regular FOLLOW SLIDING SCALE Q6HR SC 05/13/25 00:00 05/14/25 06:56 8 UNITS Dextrose 50 ml UD IV 05/13/25 00:00 Examination: LUNGS:Normal, CVS:Normal, MSK:Abnormal laboratory and microbiology Laboratory Tests 05/14/25 06:46 Test 05/14/25 06:46 Range/Units Serum Glucose 233 H 74-106 mg/dL Microbiology Date/Time Source Procedure Growth Status 05/11/25 23:45 Voided Urine Urine Culture - Preliminary Resulted 05/10/25 02:49 Nose MRSA Screen - Final Methicillin Resistant S.aureus Complete 05/09/25 19:30 Blood Blood Culture - Preliminary NO GROWTH AFTER 72 HOURS OF INCUBATION. Resulted Problem List/Assessment/Plan Problem List/Assessment/Plan Acute kidney injury likely acute tubular necrosis in the setting of severe sepsis Severe sepsis Metabolic acidosis Encephalopathy Hypernatremia Hyperkalemia Hypocalcemia Hypomagnesemia CVA Chronic Lindsay for greater than one year Multiple admissions in the past one year Previously on hospice before coming here Recommendations Kidney function slightly improving Increased urine output Strict I&Os IVF D5W with two amps sodium bicarb at 100 cc/hour Magnesium sulfate IV piggyback Patient failed swallow eval Discussed in detail with mother who is bedside recommended patient might need dialysis for solute clearance however patient's mother mentioned she does not want dialysis for the patient as he has been sick for the last one year and very weak and patient used to be on hospice before coming here Continue supportive care Plan discussed with: Other (Mother and nurse) My Orders My Orders Orders - CARLA NETTLES MD Procedure Category Date Status Time D5 W Sodium PHA 05/14/25 Transmitted Bicarbonate Drip 10:00 Dietary Evaluation Review Comments: 1. TPN per pharmacy to meet Pt's daily needs at 48g Protein 1000kcal, when Tube feeding is not feasible. 2. Nepro@25 ml/hr, providing 49g proteinm 1062 [id number] free water, once NG feeding becomes feasible, Start at 10ml/hr and increase 10ml Q6hr till reach the goal rate. 3. Renal standard CCHO-60 once pt can tolerate PO feedings Expected Outcomes/Goals: gradual wt gain CC Plasma Assessment Blood Product Administration S: [id number] CARLA NETTLES MD May 14, 2025 09:57
[2025-05-14] MEDS: MAGNESIUM SULFATE 1GM/100ML 100 ML IV SCH (11:25)
--- NOTE | 2025-05-14 14:17 | DVHPNRES ---
Progress Note Date Seen: May 14, 2025 Resident Creating Document: EYAL HI RESIDENT Medical Necessity Reason Pt with a Central, PICC or Fol: No Medical Necessity Reason patient seen and examined. Physically same. Kidney function slightly improving and his Increased urine output Subjective Review of Systems Nonverbal Objective vital signs Vital Sign Date Time Temp Pulse Resp B/P (MAP) Pulse Ox O2 Delivery O2 Flow Rate FiO2 05/14/25 11:33 92 18 100 05/14/25 11:25 Room Air* 0 21 05/14/25 11:16 160/93 05/14/25 09:00 97.7 97.7 Total Intake and Output 05/13/25 05/13/25 05/14/25 14:59 22:59 06:59 Intake Total 50 ml 100 ml 0 ml Output Total 700 ml 400 ml Balance 50 ml -600 ml -400 ml medications Current Medications Medications Dose Ordered Sig/Wai Route Start Time Stop Time Status Last Admin Dose Admin Nitroglycerin 0.4 mg Q5MINP PRN SL 05/09/25 23:15 Morphine Sulfate 2 mg Q30M PRN IV 05/09/25 23:15 Albuterol 2.5 mg Q6HR NEB 05/10/25 00:00 05/14/25 11:25 2.5 MG Acetylcysteine 200 mg Q6HR NEB 05/10/25 00:00 05/14/25 11:25 200 MG Vancomycin HCl 0 ml @ 0 mls/hr UD IV 05/09/25 23:15 Pantoprazole Sodium 40 mg DAILY IV 05/10/25 10:00 05/14/25 11:15 40 MG Morphine Sulfate 1 mg Q6HP PRN IV 05/10/25 05:15 05/13/25 03:05 1 MG Meropenem 50 ml @ 17 mls/hr Q12HR IV 05/10/25 22:00 05/14/25 11:15 17 MLS/HR Aspirin 81 mg DAILY PO 05/11/25 10:00 Mupirocin 1 applic BID EACHNOSTRI 05/11/25 22:00 05/16/25 21:59 05/14/25 11:38 1 APPLIC Hydralazine HCl 10 mg Q6HP PRN IV 05/12/25 06:30 05/14/25 11:16 10 MG Ceftriaxone Sodium 50 ml @ 100 mls/hr DAILY@09 IV 05/13/25 09:00 UNV Fluconazole 100 ml @ 100 mls/hr DAILY@1800 IV 05/13/25 18:00 05/13/25 18:46 100 MLS/HR Amino Acids 0 ml @ 0 mls/hr PER PHARMACY IV 05/13/25 16:45 Amino Acids/ Electrolytes/ Dextrose 1,000 ml @ 41 mls/hr DAILY@2200 IV 05/13/25 22:00 05/13/25 23:34 41 MLS/HR Diagnostic Test (Pha) 1 strip Q6HR 05/13/25 00:00 05/14/25 11:27 1 STRIP Insulin Human Regular FOLLOW SLIDING SCALE Q6HR SC 05/13/25 00:00 05/14/25 06:56 8 UNITS Dextrose 50 ml UD IV 05/13/25 00:00 Sodium Bicarbonate 100 ml/Dextrose 1,100 ml @ 100 mls/hr Q11H IV 05/14/25 10:00 Examination General Appearance: awake, confused. Cachectic HEENT: conjunctival pallor seen, no icterus, no cyanosis, Respiratory: Clear to auscultation, Normal air movement on ROOM AIR Cardiovascular: Regular rate, Normal S1, Normal S2, No murmurs, no chest wall tenderness Abdominal: NO distention, no tenderness, bowel sounds present, no scars noted Extremities: muscle wasting Skin: Dry; No rashes, No breakdown, No significant lesion Neuro: bed-bound Psych/Mental Status: nonverbal laboratory and microbiology Laboratory Tests 05/14/25 06:46 Test 05/14/25 06:46 Range/Units Serum Glucose 233 H 74-106 mg/dL Microbiology Date/Time Source Procedure Growth Status 05/11/25 23:45 Voided Urine Urine Culture - Preliminary Resulted 05/10/25 02:49 Nose MRSA Screen - Final Methicillin Resistant S.aureus Complete 05/09/25 19:30 Blood Blood Culture - Preliminary NO GROWTH AFTER 72 HOURS OF INCUBATION. Resulted Problem List/Assessment/Plan Problem List/Assessment/Plan Assessment/Plan Neuro: Acute metabolic encephalopathy likely due to sepsis, uremia H/o CVA - IV antibiotics,See below - IV fluids Cardiovascular NSTEMI likely type 2 due to demand ischemia - echo from December 2024 shows LVEF 64% Respiratory Acute hypoxemic respiratory failure, POA - CXR: Findings suggest a mild degree of pulmonary edema which is decreased compared to the prior study on 01/11/2025. Pneumonia is considered less likely. - 2L of oxygen - AB- ABG to be obtained, VBG shows metabolic acidosis with a base excess of - 24.9 - 100 mEq of sodium bicarb - No more ABG - stable for discharge Genitourinary LISANDRO on CKD stage 3 likely due VMN vs ATN, renal function improving CKD stage 3 Chronic Lindsay for greater than one year Nephrology on board: recommended dialysis in the next 24 hours if renal function do not improve. however patient's mother mentioned she does not want dialysis for the patient as he has been sick for the last one year and very weak We will recommend conservative management for now Infectious Disease: Severe sepsis likely due to pneumonia, UTI Pneumonia likely due to Gram +/- bacteria, possible aspiration Indwelling Lindsay's catheter long-term, UTI - broad-spectrum IV antibiotics vancomycin and meropenem, fluconazole - aggressive fluid replacement - change Lindsay catheter - Urine culture: yeast, Gram negative rods - blood cultures pending -- duo nebs q.6 hours, acetylcysteine q.6 hours --> Meropenem and vancomycin, add fluconazole Metabolic Hyperkalemia Hypernatremia Hypocalcemia Anion gap metabolic acidosis likely due to uremia - IV fluids; IVF D5W with two amps sodium bicarb at 100 cc/hour - Lasix IV ( not used aggressively because patient was septic low blood pressure) - hyperkalemia treatment protocols given - ABG to be obtained, VBG shows metabolic acidosis with a base excess of -24.9 - 100 mEq of sodium bicarb- Stopped Endocrine Hyperglycemia with a history of diabetes mellitus Probable starvation ketosis Severe protein calorie malnutrition Cachexia - currently patient NPO - mild ISS - D5 half NS IV fluid Hematology: Microcytic normochromic anemia Severe anemia - 1 unit of PRBC transfused 1x - Daily CBC, if less than 7 transfuse another PRBC PUD prophylaxis: Protonix DVT prophylaxis: Currently held because of low hemoglobin, SCD Disposition: Telemetry Plan: Previously on hospice before coming here. To send him back to Hospice. Goals of care discussed for more than 25 minutes, Code status: Full Case discussed with with the patient's primary RN and Dr. Jacobs Plan discussed with: Other (mother) Dietary Evaluation Review Comments: 1. TPN per pharmacy to meet Pt's daily needs at 48g Protein 1000kcal, when Tube feeding is not feasible. 2. Nepro@25 ml/hr, providing 49g proteinm 1062 [id number] free water, once NG feeding becomes feasible, Start at 10ml/hr and increase 10ml Q6hr till reach the goal rate. 3. Renal standard CCHO-60 once pt can tolerate PO feedings Expected Outcomes/Goals: gradual wt gain CC Plasma Assessment Blood Product Administration S: [id number] Date of Service: May 14, 2025 Billing Provider: SYD JACOBS MD Common Visit Codes: NOT BILLABLE EYAL HI RESIDENT May 14, 2025 14:17 SYD JACOBS MD May 18, 2025 13:54
[2025-05-14] MEDS: SODIUM BICARB 50mEq/50ml Vial 100 ML in D5W 5% 1,000 ML IV SCH (15:18)
[2025-05-14] MEDS: CALCIUM GLUC 4.65meq/50ml D5AE 50 ML IV ONE (16:51)
--- NOTE | 2025-05-14 17:03 | DVHPN2 ---
Progress Note Date Seen: May 14, 2025 Medical Necessity Reason Pt with a Central, PICC or Fol: No Subjective Review of Systems: NEURO:Normal (Unable to obtain) Objective vital signs Vital Sign Date Time Temp Pulse Resp B/P (MAP) Pulse Ox O2 Delivery O2 Flow Rate FiO2 05/14/25 13:00 97.8 90 20 147/80 (102) 97 97.8 05/14/25 11:25 Room Air* 0 21 Total Intake and Output 05/13/25 05/13/25 05/14/25 15:00 23:00 07:00 Intake Total 50 ml 100 ml 0 ml Output Total 700 ml 400 ml Balance 50 ml -600 ml -400 ml medications Current Medications Medications Dose Ordered Sig/Wai Route Start Time Stop Time Status Last Admin Dose Admin Nitroglycerin 0.4 mg Q5MINP PRN SL 05/09/25 23:15 Morphine Sulfate 2 mg Q30M PRN IV 05/09/25 23:15 Albuterol 2.5 mg Q6HR NEB 05/10/25 00:00 05/14/25 11:25 2.5 MG Acetylcysteine 200 mg Q6HR NEB 05/10/25 00:00 05/14/25 11:25 200 MG Vancomycin HCl 0 ml @ 0 mls/hr UD IV 05/09/25 23:15 Pantoprazole Sodium 40 mg DAILY IV 05/10/25 10:00 05/14/25 11:15 40 MG Morphine Sulfate 1 mg Q6HP PRN IV 05/10/25 05:15 05/13/25 03:05 1 MG Meropenem 50 ml @ 17 mls/hr Q12HR IV 05/10/25 22:00 05/14/25 11:15 17 MLS/HR Aspirin 81 mg DAILY PO 05/11/25 10:00 Mupirocin 1 applic BID EACHNOSTRI 05/11/25 22:00 05/16/25 21:59 05/14/25 11:38 1 APPLIC Hydralazine HCl 10 mg Q6HP PRN IV 05/12/25 06:30 05/14/25 11:16 10 MG Ceftriaxone Sodium 50 ml @ 100 mls/hr DAILY@09 IV 05/13/25 09:00 UNV Fluconazole 100 ml @ 100 mls/hr DAILY@1800 IV 05/13/25 18:00 05/13/25 18:46 100 MLS/HR Amino Acids 0 ml @ 0 mls/hr PER PHARMACY IV 05/13/25 16:45 Amino Acids/ Electrolytes/ Dextrose 1,000 ml @ 41 mls/hr DAILY@2200 IV 05/13/25 22:00 05/13/25 23:34 41 MLS/HR Diagnostic Test (Pha) 1 strip Q6HR 05/13/25 00:00 05/14/25 11:27 1 STRIP Insulin Human Regular FOLLOW SLIDING SCALE Q6HR SC 05/13/25 00:00 05/14/25 06:56 8 UNITS Dextrose 50 ml UD IV 05/13/25 00:00 Sodium Bicarbonate 100 ml/Dextrose 1,100 ml @ 100 mls/hr Q11H IV 05/14/25 10:00 05/14/25 15:18 100 MLS/HR Mupirocin 1 applic BID TOP 05/14/25 22:00 UNV Examination: GENERAL:Normal, LUNGS:Normal, CVS:Normal, ABDOMEN:Normal, SKIN:Normal, NEURO:Normal laboratory and microbiology Laboratory Tests 05/14/25 06:46 Test 05/14/25 06:46 Range/Units Serum Glucose 233 H 74-106 mg/dL Microbiology Date/Time Source Procedure Growth Status 05/11/25 23:45 Voided Urine Urine Culture - Preliminary Resulted 05/10/25 02:49 Nose MRSA Screen - Final Methicillin Resistant S.aureus Complete 05/09/25 19:30 Blood Blood Culture - Preliminary NO GROWTH AFTER 72 HOURS OF INCUBATION. Resulted Labs and/or images reviewed: Labs reviewed by me, Image(s) reviewed by me Problem List/Assessment/Plan Problem List/Assessment/Plan 1. Sepsis IV Abx 2. Acute on chronic anemia Medications, Monitoring 3. LISANDRO with CKD 3b Nephrology consult 4. Bed bound Monitoring 5. CVA with residual deficits Monitoring 6. NSTEMI II, demand ischemia Cardiology consult, monitor EKG 7. MRSA w/ Nares Medications, Monitoring 8. Hyperkalemia r/t LISANDRO Hyperkalemia Tx 9. Hypoglycemia Medications, Monitoring Assessment/Plan Subjective Patient remains nonverbal at this time. Objective Patient was admitted for sepsis and LISANDRO with CKD superimposed on stage IIIb. Patient was previously on hospice. Chest x-ray shows pneumonia. Patient was found to have sepsis related to pneumonia. Patient has NSTEMI type II most likely related to pneumonia and hypoxemia. Patient is bedbound from history of CVA. Urine culture is negative. Blood culture is negative. COVID and influenza is negative. WBC count is improving to 21.8. Per Nephrology's no mother refused dialysis however renal function had slight improvement BUN is 115 creatinine is 4.46 and GFR is 16. We will continue IV fluids as per Nephrology Plan Continue antibiotics for sepsis and pneumonia with meropenem and vancomycin. Monitor respiratory status and neurostatus. Planning to DC to hospice services when patient is more stable. Plan discussed with: Patient, Other Plan discussed with: Patient My Orders My Orders Orders - ASIYA JACQUES Procedure Category Date Status Time Chest Portable XY 05/14/25 Resulted 07:00 DNR TERESA 05/14/25 In Process 10:07 Apply Z-Guard TERESA 05/14/25 In Process 10:54 * Infectious [place]- CONS 05/14/25 Transmitted K Alec 16:51 Mupirocin 2% Ointment PHA 05/14/25 Logged (Bactroban 2% Oint 22:00 Dietary Evaluation Review Comments: 1. TPN per pharmacy to meet Pt's daily needs at 48g Protein 1000kcal, when Tube feeding is not feasible. 2. Nepro@25 ml/hr, providing 49g proteinm 1062 [id number] free water, once NG feeding becomes feasible, Start at 10ml/hr and increase 10ml Q6hr till reach the goal rate. 3. Renal standard CCHO-60 once pt can tolerate PO feedings Expected Outcomes/Goals: gradual wt gain Date of Service: May 14, 2025 Billing Provider: MARIBEL WHALEN MD Common Visit Codes: [id number] INP/OBS CARE (MOD) CC Plasma Assessment Blood Product Administration S: [id number] ASIYA JACQUES May 14, 2025 17:03
[2025-05-14] MEDS: VANCOMYCIN 500mg/100mL 100 ML IV ONE (18:28)
[2025-05-14] MEDS: MUPIROCIN 2% OINT 15gm or 22gm TOP SCH (21:32)
[2025-05-15] VITALS (19 sets, daily range): BP systolic 141–189; BP diastolic 77–99; PULSE 80–100; RESP 16–20; TEMP 96.4–97.8; O2SAT 94–100
[2025-05-15 05:56] LABS: Anion Gap 18.0 (5-15)
[2025-05-15 05:59] LABS: Calcium 6.5 mg/dL (8.7-10.4); Carbon Dioxide 16.0 mmol/L (20-31); Chloride 113.0 mmol/L (98-107); Potassium 3.2 mmol/L (3.5-5.1); Sodium 147.0 mmol/L (136-145)
[2025-05-15 06:02] LABS: BUN/Creatinine Ratio 30.5 (10.0-20.0); Magnesium 1.6 mg/dL (1.6-2.6)
[2025-05-15 06:09] LABS: Albumin 2.6 g/dL (3.2-4.8); Glucose 140.0 mg/dL (74-106)
[2025-05-15 06:11] LABS: Blood Urea Nitrogen 123.0 mg/dL (9-23)
[2025-05-15 06:58] LABS: Anion Gap 19 (5-15)
[2025-05-15 07:01] LABS: Calcium 6.6 mg/dL (8.7-10.4); Carbon Dioxide 15 mmol/L (20-31); Chloride 113 mmol/L (98-107); Potassium 3.2 mmol/L (3.5-5.1); Sodium 147 mmol/L (136-145)
[2025-05-15 07:04] LABS: BUN/Creatinine Ratio 30.5 (10.0-20.0); Magnesium 1.6 mg/dL (1.6-2.6)
[2025-05-15 07:05] LABS: Glucose 141 mg/dL (74-106)
[2025-05-15 07:07] LABS: Blood Urea Nitrogen 123 mg/dL (9-23)
[2025-05-15 07:34] LABS: Hematocrit 26.3 % (41.0-53.0); Hemoglobin 8.4 g/dL (13.5-17.5); Mean Corpuscular Hemoglobin 28.8 pg (28.0-32.0); Mean Corpuscular Volume 90.1 fL (80.0-100.0); Nucleated Red Blood Cells % 4.8 %
[2025-05-15] MEDS: POTASSIUM EFFERVESENT TAB 25 MEQ PO ONE (09:30)
--- NOTE | 2025-05-15 10:13 | DVHPN2 ---
Progress Note Date Seen: May 15, 2025 Medical Necessity Reason Pt with a Central, PICC or Fol: No Subjective Patient reports: No new complaints Other Systems: Patient seen and examined by myself today in follow-up Objective vital signs Vital Sign Date Time Temp Pulse Resp B/P (MAP) Pulse Ox O2 Delivery O2 Flow Rate FiO2 05/15/25 08:29 97.2 91 16 154/99 (117) 95 97.2 05/15/25 07:33 Room Air 05/15/25 07:33 0 21 Total Intake and Output 05/14/25 05/14/25 05/15/25 15:00 23:00 07:00 Intake Total 250 ml 1452 ml 1319 ml Output Total 1300 ml 550 ml Balance 250 ml 152 ml 769 ml medications Current Medications Medications Dose Ordered Sig/Wai Route Start Time Stop Time Status Last Admin Dose Admin Nitroglycerin 0.4 mg Q5MINP PRN SL 05/09/25 23:15 Morphine Sulfate 2 mg Q30M PRN IV 05/09/25 23:15 Albuterol 2.5 mg Q6HR NEB 05/10/25 00:00 05/15/25 07:31 2.5 MG Acetylcysteine 200 mg Q6HR NEB 05/10/25 00:00 05/15/25 07:32 200 MG Vancomycin HCl 0 ml @ 0 mls/hr UD IV 05/09/25 23:15 Pantoprazole Sodium 40 mg DAILY IV 05/10/25 10:00 05/14/25 11:15 40 MG Morphine Sulfate 1 mg Q6HP PRN IV 05/10/25 05:15 05/13/25 03:05 1 MG Meropenem 50 ml @ 17 mls/hr Q12HR IV 05/10/25 22:00 05/14/25 21:24 17 MLS/HR Aspirin 81 mg DAILY PO 05/11/25 10:00 Mupirocin 1 applic BID EACHNOSTRI 05/11/25 22:00 05/16/25 21:59 05/14/25 21:20 1 APPLIC Hydralazine HCl 10 mg Q6HP PRN IV 05/12/25 06:30 05/15/25 01:21 10 MG Ceftriaxone Sodium 50 ml @ 100 mls/hr DAILY@09 IV 05/13/25 09:00 UNV Fluconazole 100 ml @ 100 mls/hr DAILY@1800 IV 05/13/25 18:00 05/14/25 17:57 100 MLS/HR Amino Acids 0 ml @ 0 mls/hr PER PHARMACY IV 05/13/25 16:45 Amino Acids/ Electrolytes/ Dextrose 1,000 ml @ 41 mls/hr DAILY@2200 IV 05/13/25 22:00 05/14/25 21:12 41 MLS/HR Diagnostic Test (Pha) 1 strip Q6HR 05/13/25 00:00 05/15/25 06:37 1 STRIP Insulin Human Regular FOLLOW SLIDING SCALE Q6HR SC 05/13/25 00:00 05/15/25 02:51 8 UNITS Dextrose 50 ml UD IV 05/13/25 00:00 Sodium Bicarbonate 100 ml/Dextrose 1,100 ml @ 100 mls/hr Q11H IV 05/14/25 10:00 05/14/25 21:28 100 MLS/HR Mupirocin 1 applic BID TOP 05/14/25 22:00 05/14/25 21:32 1 APPLIC Examination: LUNGS:Normal, CVS:Normal, MSK:Abnormal laboratory and microbiology Laboratory Tests 05/15/25 05:22 Test 05/15/25 05:22 Range/Units Serum Glucose 141 H 74-106 mg/dL Microbiology Date/Time Source Procedure Growth Status 05/11/25 23:45 Voided Urine Urine Culture - Preliminary Resulted 05/10/25 02:49 Nose MRSA Screen - Final Methicillin Resistant S.aureus Complete 05/09/25 19:30 Blood Blood Culture - Final NO GROWTH AFTER 5 DAYS OF INCUBATION. Complete Problem List/Assessment/Plan Problem List/Assessment/Plan Acute kidney injury likely acute tubular necrosis in the setting of severe sepsis Severe sepsis Metabolic acidosis Encephalopathy Hypernatremia Hyperkalemia Hypocalcemia Hypomagnesemia CVA Bed-bound Chronic Lindsay for greater than one year Multiple admissions in the past one year Previously on hospice before coming here Recommendations Kidney function slightly improving Increased urine output Strict I&Os IVF D5W with 100 mEq/L sodium bicarb at 100 cc/hour Magnesium sulfate IV piggyback Patient failed swallow eval Discussed in detail with mother who is bedside recommended patient might need dialysis for solute clearance however patient's mother mentioned she does not want dialysis for the patient as he has been sick for the last one year and very weak and patient used to be on hospice before coming here Continue supportive care Plan discussed with: Patient, Other (Nurse) Dietary Evaluation Review Comments: 1. TPN per pharmacy to meet Pt's daily needs at 48g Protein 1000kcal, when Tube feeding is not feasible. 2. Nepro@25 ml/hr, providing 49g proteinm 1062 [id number] free water, once NG feeding becomes feasible, Start at 10ml/hr and increase 10ml Q6hr till reach the goal rate. 3. Renal standard CCHO-60 once pt can tolerate PO feedings Expected Outcomes/Goals: gradual wt gain CC Plasma Assessment Blood Product Administration S: [id number] CARLA NETTLES MD May 15, 2025 10:13
--- NOTE | 2025-05-15 12:35 | DVHPN2 ---
Progress Note - Dictate Date Seen: May 15, 2025 Medical Necessity Reason Pt with a Central, PICC or Fol: No vital signs Vital Sign Date Time Temp Pulse Resp B/P (MAP) Pulse Ox O2 Delivery O2 Flow Rate FiO2 05/15/25 08:29 97.2 91 16 154/99 (117) 95 97.2 05/15/25 07:33 Room Air 05/15/25 07:33 0 21 Total Intake and Output 05/14/25 05/14/25 05/15/25 15:00 23:00 07:00 Intake Total 250 ml 1452 ml 1319 ml Output Total 1300 ml 550 ml Balance 250 ml 152 ml 769 ml medications Current Medications Medications Dose Ordered Sig/Wai Route Start Time Stop Time Status Last Admin Dose Admin Nitroglycerin 0.4 mg Q5MINP PRN SL 05/09/25 23:15 Morphine Sulfate 2 mg Q30M PRN IV 05/09/25 23:15 Albuterol 2.5 mg Q6HR NEB 05/10/25 00:00 05/15/25 07:31 2.5 MG Acetylcysteine 200 mg Q6HR NEB 05/10/25 00:00 05/15/25 07:32 200 MG Vancomycin HCl 0 ml @ 0 mls/hr UD IV 05/09/25 23:15 Pantoprazole Sodium 40 mg DAILY IV 05/10/25 10:00 05/15/25 10:22 40 MG Morphine Sulfate 1 mg Q6HP PRN IV 05/10/25 05:15 05/13/25 03:05 1 MG Meropenem 50 ml @ 17 mls/hr Q12HR IV 05/10/25 22:00 05/15/25 10:40 17 MLS/HR Aspirin 81 mg DAILY PO 05/11/25 10:00 Mupirocin 1 applic BID EACHNOSTRI 05/11/25 22:00 05/16/25 21:59 05/15/25 10:26 1 APPLIC Hydralazine HCl 10 mg Q6HP PRN IV 05/12/25 06:30 05/15/25 01:21 10 MG Ceftriaxone Sodium 50 ml @ 100 mls/hr DAILY@09 IV 05/13/25 09:00 UNV Fluconazole 100 ml @ 100 mls/hr DAILY@1800 IV 05/13/25 18:00 05/14/25 17:57 100 MLS/HR Amino Acids 0 ml @ 0 mls/hr PER PHARMACY IV 05/13/25 16:45 Amino Acids/ Electrolytes/ Dextrose 1,000 ml @ 41 mls/hr DAILY@2200 IV 05/13/25 22:00 05/14/25 21:12 41 MLS/HR Diagnostic Test (Pha) 1 strip Q6HR 05/13/25 00:00 05/15/25 06:37 1 STRIP Insulin Human Regular FOLLOW SLIDING SCALE Q6HR SC 05/13/25 00:00 05/15/25 02:51 8 UNITS Dextrose 50 ml UD IV 05/13/25 00:00 Sodium Bicarbonate 100 ml/Dextrose 1,100 ml @ 100 mls/hr Q11H IV 05/14/25 10:00 05/15/25 10:37 100 MLS/HR Mupirocin 1 applic BID TOP 05/14/25 22:00 05/15/25 10:22 1 APPLIC Magnesium Sulfate/ Dextrose 100 ml @ 100 mls/hr Q1HR IV 05/15/25 11:00 05/15/25 12:59 laboratory and microbiology Laboratory Tests 05/15/25 05:22 Test 05/15/25 05:22 Range/Units Serum Glucose 141 H 74-106 mg/dL Assessment/Plan Assessment/Plan Patient is a 44-year-old gentleman who presented with altered mental status/shortness of breath. He is at baseline poor historian. Information was obtained by reviewing the chart and communicating with staff. It seems that since arrival the patient was found to have severe sepsis and multiorgan dysfunction. He has been on supplemental oxygen. 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 Reportedly on arrival to Emergency room blood pressure was low on later improved. Cardiology is involved for cardiac aspects of care. There is no report of chest pain. Lying flat in bed. No JVD. Mucosa is pink and wet. Scattered rhonchi in the lungs is heard. Cardiac: Regular, tachycardic, no thrill. Systolic murmur 2/6 in apex is heard. Abdomen is soft. There is no gross mass. There is no hepatomegaly. Extremities do not reveal edema. Dorsalis pedis is 2+ bilateral Past medical history reportedly includes old history of CVA with poor functional capacity, CKD, hypertension, hyperlipidemia, diabetes mellitus, repeated history of sepsis, history of urethral stricture and recurrent UTI, history of phimosis anemia and bed-bound at baseline. There was question if the patient has baseline history of diastolic heart failure Echocardiogram of December 2024 revealed ejection fraction of 64%, trace MR/TR and right ventricular systolic pressure of 34 mm Hg. WBC: 26.7 - 20.8 - 29.9 - 29.4 - 28.4 - 18.4 Hemoglobin: 5.9 - 6.8 - 7.8 - 9.0 - 9.5 - 8.4 BNP: 528.66 Creatinine: 5.69 - 5.7 - 4.72 - 4.86 - 4.67 - 4.73 - 4.70 - 4.77 - 4.84 - 4.51 - 4.03 Potassium: 8.0 - 7.6 - 5.8 - 5.8 - 5.0 - 5.0 - 5.0 - 4.9 - 4.4 - 3.2 Sodium: 147 - 146 - 153 - 154 - 157 - 155 - 154 - 152 - 150 - 147 AST/ALT: 96/66 - 468/478 - 257/349 Troponin (high sensitive): 81 - 89 - 92 Chest x-ray reported: IMPRESSION: Findings suggest a mild degree of pulmonary edema which is decreased compared to the prior study on 01/11/2025. Pneumonia is considered less likely Repeat chest xry revealed: IMPRESSION: 1. No interval change. Renal ultrasound reported: IMPRESSION: Bilateral medical renal disease. EKG revealed sinus tachycardia Tele shows sinus tachycardia Echocardiogram revealed: Left ventricle: Mild diffuse hypokinesis of left ventricle was seen. LVEF was around 50%. Right ventricle was normal size with mildly reduced systolic function. Both atria were normal size. Aortic valve was trileaflet. There was no aortic insufficiency/stenosis. There was mild mitral/tricuspid regurgitation. There was no pulmonary valve insufficiency. Right ventricular systolic pressure was assessed at 35 mm Hg. There was trace pericardial effusion. Patient is a 44-year-old gentleman who was at baseline bed-bound with old history of CVA who presented with altered mental status and shortness of breath. Presentation is in favor acute respiratory failure secondary to sepsis. Multiorgan failure secondary to sepsis is considered. Minimal increase in troponin is considered to reflect demand ischemia in a patient with questionable history of diastolic heart failure. In December 2024 ejection fraction in echocardiogram was 64% with no specific increase in right ventricular systolic pressure. Acute respiratory failure Sepsis Encephalopathy, metabolic versus toxic LISANDRO on CKD ATN Demand ischemia Hypernatremia Hypokalemia Anemia Cardiac suggestion for management: Manage in tele Fluid resuscitation as per Nephrology Follow-up electrolytes and kidney function tests and correct abnormalities Aspirin: 81 mg daily with old history of CVA is suggested DVT prophylaxis as per primary team Control hypertension Management of sepsis/infection as per primary team Pulmonary follow-up Nephrology follow up Further evaluation and management depends on the above and clinical course A total of 55 minutes was spent reviewing the patient record, examining the patient, making a diagnostic and therapeutic plan, discussing this plan with medical personnel, following up on diagnostic studies and following the patient for clinical stability excluding any and all procedures. At least 50% of this time was spent in direct, [id number] contact. Thank you for allowing me to participate in this patient's care. Further recommendations will depend on patient's clinical course. Please do not hesitate to contact me if you have any questions or concerns. This medical document was created using electronic medical record system with [employer] computerized dictation system. Although this document has been carefully reviewed, there may still be some phonetic and typographical errors. These areas are purely typographical due to the imperfection of the software programs, and do not reflect any compromise in the patient's medical care. Dietary Evaluation Review Comments: 1. TPN per pharmacy to meet Pt's daily needs at 48g Protein 1000kcal, when Tube feeding is not feasible. 2. Nepro@25 ml/hr, providing 49g proteinm 1062 [id number] free water, once NG feeding becomes feasible, Start at 10ml/hr and increase 10ml Q6hr till reach the goal rate. 3. Renal standard CCHO-60 once pt can tolerate PO feedings Expected Outcomes/Goals: gradual wt gain Plan discussed with: Patient (Patient and Primary RN ) CC Plasma Assessment Blood Product Administration S: [id number] MAYCOL GRIFFITH [employer] TECHNICIAN May 15, 2025 12:35
--- NOTE | 2025-05-15 13:57 | DVHPN2 ---
Progress Note - Dictate Date Seen: May 15, 2025 Medical Necessity Reason Pt with a Central, PICC or Fol: No vital signs Vital Sign Date Time Temp Pulse Resp B/P (MAP) Pulse Ox O2 Delivery O2 Flow Rate FiO2 05/15/25 12:52 90 20 100 05/15/25 12:51 96.8 149/77 (101) 96.8 05/15/25 12:50 Room Air 05/15/25 12:50 0 21 Total Intake and Output 05/14/25 05/14/25 05/15/25 15:00 23:00 07:00 Intake Total 250 ml 1452 ml 1319 ml Output Total 1300 ml 550 ml Balance 250 ml 152 ml 769 ml medications Current Medications Medications Dose Ordered Sig/Wai Route Start Time Stop Time Status Last Admin Dose Admin Nitroglycerin 0.4 mg Q5MINP PRN SL 05/09/25 23:15 Morphine Sulfate 2 mg Q30M PRN IV 05/09/25 23:15 Albuterol 2.5 mg Q6HR NEB 05/10/25 00:00 05/15/25 12:48 2.5 MG Acetylcysteine 200 mg Q6HR NEB 05/10/25 00:00 05/15/25 12:48 200 MG Vancomycin HCl 0 ml @ 0 mls/hr UD IV 05/09/25 23:15 Pantoprazole Sodium 40 mg DAILY IV 05/10/25 10:00 05/15/25 10:22 40 MG Morphine Sulfate 1 mg Q6HP PRN IV 05/10/25 05:15 05/13/25 03:05 1 MG Meropenem 50 ml @ 17 mls/hr Q12HR IV 05/10/25 22:00 05/15/25 10:40 17 MLS/HR Aspirin 81 mg DAILY PO 05/11/25 10:00 Mupirocin 1 applic BID EACHNOSTRI 05/11/25 22:00 05/16/25 21:59 05/15/25 10:26 1 APPLIC Hydralazine HCl 10 mg Q6HP PRN IV 05/12/25 06:30 05/15/25 01:21 10 MG Ceftriaxone Sodium 50 ml @ 100 mls/hr DAILY@09 IV 05/13/25 09:00 UNV Fluconazole 100 ml @ 100 mls/hr DAILY@1800 IV 05/13/25 18:00 05/14/25 17:57 100 MLS/HR Amino Acids 0 ml @ 0 mls/hr PER PHARMACY IV 05/13/25 16:45 Amino Acids/ Electrolytes/ Dextrose 1,000 ml @ 41 mls/hr DAILY@2200 IV 05/13/25 22:00 05/14/25 21:12 41 MLS/HR Diagnostic Test (Pha) 1 strip Q6HR 05/13/25 00:00 05/15/25 06:37 1 STRIP Insulin Human Regular FOLLOW SLIDING SCALE Q6HR SC 05/13/25 00:00 05/15/25 02:51 8 UNITS Dextrose 50 ml UD IV 05/13/25 00:00 Sodium Bicarbonate 100 ml/Dextrose 1,100 ml @ 100 mls/hr Q11H IV 05/14/25 10:00 05/15/25 10:37 100 MLS/HR Mupirocin 1 applic BID TOP 05/14/25 22:00 05/15/25 10:22 1 APPLIC laboratory and microbiology Laboratory Tests 05/15/25 05:22 Test 05/15/25 05:22 Range/Units Serum Glucose 141 H 74-106 mg/dL Assessment/Plan Impression Acute hypoxemic respiratory failure Altered mental status Pneumonia Sepsis UTI Patient seen and examined Events Low oxygen requirements On room air No distress Chest x-ray reviewed Labs reviewed Management Supplemental oxygen as needed Titrate to maintain sats 90% or above Incentive spirometry Continue antibiotics F/u cultures Bronchodilators Monitor renal function F/u nephrology, management deferred Monitor electrolytes Supplement as needed Monitor blood count Transfuse blood products as needed Okay to discharge from pulmonary standpoint DVT prophylaxis Dietary Evaluation Review Comments: 1. TPN per pharmacy to meet Pt's daily needs at 48g Protein 1000kcal, when Tube feeding is not feasible. 2. Nepro@25 ml/hr, providing 49g proteinm 1062 [id number] free water, once NG feeding becomes feasible, Start at 10ml/hr and increase 10ml Q6hr till reach the goal rate. 3. Renal standard CCHO-60 once pt can tolerate PO feedings Expected Outcomes/Goals: gradual wt gain Plan discussed with: Patient CC Plasma Assessment Blood Product Administration S: [id number] SYD JACOBS MD May 15, 2025 13:57
[2025-05-15] MEDS: MAGNESIUM SULFATE 1GM/100ML 100 ML IV SCH (14:03)
--- NOTE | 2025-05-15 14:05 | DVHPN2 ---
Progress Note Date Seen: May 15, 2025 Medical Necessity Reason Pt with a Central, PICC or Fol: No Subjective Review of Systems: Not Done (Unable to obtain) Objective vital signs Vital Sign Date Time Temp Pulse Resp B/P (MAP) Pulse Ox O2 Delivery O2 Flow Rate FiO2 05/15/25 12:52 90 20 100 05/15/25 12:51 96.8 149/77 (101) 96.8 05/15/25 12:50 Room Air 05/15/25 12:50 0 21 Total Intake and Output 05/14/25 05/14/25 05/15/25 15:00 23:00 07:00 Intake Total 250 ml 1452 ml 1319 ml Output Total 1300 ml 550 ml Balance 250 ml 152 ml 769 ml medications Current Medications Medications Dose Ordered Sig/Wai Route Start Time Stop Time Status Last Admin Dose Admin Nitroglycerin 0.4 mg Q5MINP PRN SL 05/09/25 23:15 Morphine Sulfate 2 mg Q30M PRN IV 05/09/25 23:15 Albuterol 2.5 mg Q6HR NEB 05/10/25 00:00 05/15/25 12:48 2.5 MG Acetylcysteine 200 mg Q6HR NEB 05/10/25 00:00 05/15/25 12:48 200 MG Vancomycin HCl 0 ml @ 0 mls/hr UD IV 05/09/25 23:15 Cancel Pantoprazole Sodium 40 mg DAILY IV 05/10/25 10:00 05/15/25 10:22 40 MG Morphine Sulfate 1 mg Q6HP PRN IV 05/10/25 05:15 05/13/25 03:05 1 MG Meropenem 50 ml @ 17 mls/hr Q12HR IV 05/10/25 22:00 05/15/25 10:40 17 MLS/HR Aspirin 81 mg DAILY PO 05/11/25 10:00 Mupirocin 1 applic BID EACHNOSTRI 05/11/25 22:00 05/16/25 21:59 05/15/25 10:26 1 APPLIC Hydralazine HCl 10 mg Q6HP PRN IV 05/12/25 06:30 05/15/25 01:21 10 MG Ceftriaxone Sodium 50 ml @ 100 mls/hr DAILY@09 IV 05/13/25 09:00 UNV Amino Acids 0 ml @ 0 mls/hr PER PHARMACY IV 05/13/25 16:45 Amino Acids/ Electrolytes/ Dextrose 1,000 ml @ 41 mls/hr DAILY@2200 IV 05/13/25 22:00 05/14/25 21:12 41 MLS/HR Diagnostic Test (Pha) 1 strip Q6HR 05/13/25 00:00 05/15/25 06:37 1 STRIP Insulin Human Regular FOLLOW SLIDING SCALE Q6HR SC 05/13/25 00:00 05/15/25 02:51 8 UNITS Dextrose 50 ml UD IV 05/13/25 00:00 Sodium Bicarbonate 100 ml/Dextrose 1,100 ml @ 100 mls/hr Q11H IV 05/14/25 10:00 05/15/25 10:37 100 MLS/HR Mupirocin 1 applic BID TOP 05/14/25 22:00 05/15/25 10:22 1 APPLIC Examination: GENERAL:Normal, LUNGS:Normal, LUNGS:Abnormal (Crackles), CVS:Normal, ABDOMEN:Normal, SKIN:Normal, NEURO:Normal laboratory and microbiology Laboratory Tests 05/15/25 05:22 Test 05/15/25 05:22 Range/Units Serum Glucose 141 H 74-106 mg/dL Microbiology Date/Time Source Procedure Growth Status 05/11/25 23:45 Voided Urine Urine Culture - Final Yeast, not Diana albicans Complete 05/10/25 02:49 Nose MRSA Screen - Final Methicillin Resistant S.aureus Complete 05/09/25 19:30 Blood Blood Culture - Final NO GROWTH AFTER 5 DAYS OF INCUBATION. Complete Labs and/or images reviewed: Labs reviewed by me, Image(s) reviewed by me Problem List/Assessment/Plan Problem List/Assessment/Plan 1. Sepsis IV Abx 2. Acute on chronic anemia Medications, Monitoring 3. LISANDRO with CKD 3b Nephrology consult 4. Bed bound Monitoring 5. CVA with residual deficits Monitoring 6. NSTEMI II, demand ischemia Cardiology consult, monitor EKG 7. MRSA w/ Nares Medications, Monitoring 8. Hyperkalemia r/t LISANDRO Hyperkalemia Tx 9. Hypoglycemia Medications, Monitoring Assessment/Plan Subjective Patient remains nonverbal at this time. Objective Patient was admitted for sepsis and LISANDRO with CKD superimposed on stage IIIb. Patient was previously on hospice. Chest x-ray shows pneumonia. Patient was found to have sepsis related to pneumonia. Patient has NSTEMI type II most likely related to pneumonia and hypoxemia. Patient is bedbound from history of CVA. Urine culture is negative. Blood culture is negative. COVID and influenza is negative. WBC count is improving to 18.9. Per Nephrology's no mother refused dialysis however renal function had slight improvement creatinine is 4.03 and GFR is 18. We will continue IV fluids as per Nephrology. We will stop vancomycin and switch to Zyvox due to LISANDRO. Plan Continue antibiotics for sepsis and pneumonia with meropenem and vancomycin. Monitor respiratory status and neurostatus. Planning to DC to hospice services when patient is more stable. Stop vancomycin, start Zyvox Plan discussed with: Patient, Other Plan discussed with: Patient My Orders My Orders Orders - ASIYA JACQUES Procedure Category Date Status Time Apply Z-Guard TERESA 05/14/25 In Process 10:54 * Infectious Meek- CONS 05/14/25 Transmitted K Alec 16:51 Mupirocin 2% Ointment PHA 05/14/25 In Process (Bactroban 2% Oint 22:00 Linzeolid 600 Mg Ivpb PHA 05/15/25 Transmitted 22:00 Dietary Evaluation Review Comments: 1. TPN per pharmacy to meet Pt's daily needs at 48g Protein 1000kcal, when Tube feeding is not feasible. 2. Nepro@25 ml/hr, providing 49g proteinm 1062 [id number] free water, once NG feeding becomes feasible, Start at 10ml/hr and increase 10ml Q6hr till reach the goal rate. 3. Renal standard CCHO-60 once pt can tolerate PO feedings Expected Outcomes/Goals: gradual wt gain Date of Service: May 15, 2025 Billing Provider: MARIBEL WHALEN MD Common Visit Codes: 30821-[id number] INP/OBS CARE (MOD) CC Plasma Assessment Blood Product Administration S: [id number] ASIYA JACQUES May 15, 2025 14:05
--- NOTE | 2025-05-15 14:06 | DVHINCON2 ---
Date of service: May 15, 2025 Family History: FH: diabetes mellitus FHx: stroke Allergies: Coded Allergies: NO KNOWN ALLERGIES (Unverified , 07/19/23) Home Meds Active Scripts Sodium Bicarbonate (Sodium Bicarbonate) 650 Mg Tab, 650 MG PO TID for 30 Days, #90 TAB Prov:RAÚL STEEL MEDICAL ASSISTANT PER DIEM 01/11/25 Furosemide (Furosemide) 40 Mg Tab, 40 MG PO DAILY for 30 Days, #30 TAB Prov:RAÚL STEEL MEDICAL ASSISTANT PER DIEM 01/11/25 Atorvastatin Calcium (ATORVASTATIN CALCIUM) 20 Mg Tab, 20 MG PO HS for 30 Days, #30 TAB Prov:RAÚL STEEL MEDICAL ASSISTANT PER DIEM 01/11/25 Reported Medications Tamsulosin Hcl (Tamsulosin Hcl) 0.4 Mg Cap, 1 CAP PO DAILY for 30 Days, #30 12/31/24 Lisinopril (Lisinopril) 40 Mg Tab, 1 TAB PO DAILY for 30 Days, #30 12/31/24 Amlodipine Besylate (Amlodipine Besylate) 10 Mg Tab, 1 TAB PO DAILY for 30 Days, #30 12/31/24 Metformin Hydrochloride (Metformin Hcl) 500 Mg Tab, 1 TAB PO DAILY for 30 Days, #30 TAKE 1 TABLET BY MOUTH ONCE DAILY WITH BREAKFAST. 12/31/24 Glipizide (Glipizide Er) 5 Mg Tab, 1 TAB PO DAILY for 30 Days, #30 TAKE 1 TABLET BY MOUTH ONCE DAILY WITH BREAKFAST. 12/31/24 Current Medications Current Medications Medications (Trade) Dose Ordered Sig/Wai Route PRN Reason Start Time Stop Time Status Last Admin Mupirocin (Bactroban 2% Ointment) 1 applic BID TOP 05/14/25 22:00 05/15/25 10:22 Magnesium Sulfate/ Dextrose 100 ml @ 100 mls/hr Q1HR IV 05/15/25 11:00 05/15/25 12:59 DC Linezolid 300 ml @ 150 mls/hr Q12HR IV 05/15/25 22:00 UNV Vital Signs Vital Signs Date Time Temp Pulse Resp B/P (MAP) Pulse Ox O2 Delivery O2 Flow Rate FiO2 05/15/25 12:52 90 20 100 05/15/25 12:51 96.8 149/77 (101) 96.8 05/15/25 12:50 Room Air 05/15/25 12:50 0 21 Labs/Diagnostic Data Labs Test 05/15/25 06:25 05/15/25 05:22 05/14/25 06:46 05/13/25 10:00 Range/Units POC Glucose 121 H 70-106 mg/dl White Blood Count 18.4 H 4.4-10.8 10^3/uL Red Blood Count 2.91 L 4.5-5.90 10^6/uL Hemoglobin 8.4 L 13.5-17.5 g/dL Hematocrit 26.3 L 41.0-53.0 % Mean Corpuscular Volume 90.1 80.0-100.0 fL Mean Corpuscular Hemoglobin 28.8 28.0-32.0 pg Mean Corpuscular Hemoglobin Concent 32.0 32.0-36.0 g/dL Red Cell Distribution Width 18.0 H 11.8-14.3 % Platelet Count 126 L 140-450 10^3/uL Mean Platelet Volume 11.6 H 6.9-10.8 fL Neutrophils (%) (Auto) 85.7 H 37.0-80.0 % Lymphocytes (%) (Auto) 8.1 L 10.0-50.0 % Monocytes (%) (Auto) 4.8 0.0-12.0 % Eosinophils (%) (Auto) 1.1 0.0-7.0 % Basophils (%) (Auto) 0.3 0.0-2.0 % Neutrophils # (Auto) 15.7 H 1.6-8.6 10 ^3/uL Lymphocytes # (Auto) 1.5 0.4-5.4 10 ^3/uL Monocytes # (Auto) 0.9 0-1.3 10 ^3/uL Eosinophils # (Auto) 0.2 0-0.8 10 ^3/uL Basophils # (Auto) 0.1 0-0.2 10 ^3/uL Nucleated Red Blood Cells 4.8 % Sodium Level 147 H 136-145 mmol/L Potassium Level 3.2 L 3.5-5.1 mmol/L Chloride Level 113 H 98-107 mmol/L Carbon Dioxide Level 15 L 20-31 mmol/L Anion Gap 19 H 5-15 Blood Urea Nitrogen 123 *H 9-23 mg/dL Creatinine 4.03 H 0.700-1.30 mg/dL Glomerular Filtration Rate Calc 18 >90 mL/min Estimated GFR () 21 mL/min Estimated GFR (Non- 17 mL/min BUN/Creatinine Ratio 30.5 H 10.0-20.0 Serum Glucose 141 H 74-106 mg/dL Calcium Level 6.6 L 8.7-10.4 mg/dL Phosphorus Level 7.4 H 2.4-5.1 mg/dL Magnesium Level 1.6 1.6-2.6 mg/dL Albumin 2.6 L 3.2-4.8 g/dL Total Bilirubin 0.2 0.2-1.0 mg/dL Aspartate Amino Transferase (AST) 15 <34 U/L Alanine Aminotransferase (ALT) 118 H 7-40 U/L Alkaline Phosphatase 257 H 46-116 U/L Total Protein 5.8 5.7-8.2 g/dL Random Vancomycin Level 12.0 H 5-10 ug/mL Differential Total Cells Counted 100.0 100 Neutrophils % (Manual) 89 H 37.0-80.0 Band Neutrophils % (Manual) 0 Lymphocytes % (Manual) 6 L 10.0-50.0 Monocytes % (Manual) 5 0-12 Eosinophils % (Manual) 0 0-7 Basophils % (Manual) 0 0.0-2.0 Metamyelocytes % (manual) 0 Myelocytes % (Manual) 0 Promyelocytes % (Manual) 0 Blast Cells % (Manual) 0 Reactive Lymphocytes 0 Platelet Estimate Adequate Test 05/12/25 04:08 05/11/25 03:45 05/10/25 18:12 05/10/25 15:39 Range/Units Large Platelets Few Poikilocytosis (manual) Slight Hanna Cells Few Schistocytes Few Blood Gas Specimen Type Arterial Blood Gas Sample Site Left brachial Blood Gas Patient Temperature 37.0 Arterial Blood Date Drawn [id number] Arterial Blood pH 7.390 7.350-7.450 Arterial Blood Partial Pressure CO2 22.6 L 35.0-48.0 mmHg Arterial Blood Partial Pressure O2 74.0 L 83.0-108.0 mmHg Arterial Blood HCO3 13.4 L 21.0-28.0 mmol/L Arterial Blood Oxygen Saturation 93.6 L 94.0-98.0 % Arterial Blood Base Excess -9.9 L -2.0-3.0 mmol/L Arterial Blood Oxyhemoglobin 92.5 L 94.0-98.0 % Arterial Blood Carboxyhemoglobin 0.5 0.5-1.5 % Arterial Blood Methemoglobin 0.7 0.0-1.5 % Alberto Test N/a Blood Gas Total Hemoglobin 11.00 L 13.5-17.5 g/dL Blood Gas Modality Room air FiO2 % 21.0 Lactic Acid Level 0.7 0.4-2.0 mmol/L Test 05/10/25 08:58 05/10/25 04:45 05/10/25 02:49 05/09/25 23:49 Range/Units Blood Gas Critical Value Read Back Yes Blood Gas Notified Whom aren Claros Blood Gas Notified Time [id number] Blood Gas Notified By [employer]ic [facility] Urine Color Colorless Yellow Urine Clarity Ex.turbid Clear Urine pH 6.0 5.0-9.0 Urine Specific [place] 1.012 1.001-1.035 Urine Protein 2+ H Negative Urine Ketones Negative Negative Urine Blood 3+ H Negative /uL Urine Nitrite Negative Negative Urine Bilirubin Negative Negative Urine Urobilinogen Normal Negative mg/dL Urine Leukocyte Esterase 3+ Negative /uL Urine RBC 854 0 - 3 /hpf Urine WBC Clumps Present None Seen /hpf Urine Microscopic WBC 665 H 0-3 /HPF Urine Squamous Epithelial Cells None seen <5 /hpf Urine Bacteria None seen None Seen /hpf Urine Creatinine 15.58 L 30.0-125.0 mg/dL Urine Protein/Creatinine Ratio 28.82 Urine Sodium 108 40-220 mmol/L Urine Glucose 1+ H Normal mg/dL Urine Total Protein 449.0 H 1-14 mg/dL Influenza Type A Antigen Negative Negative Influenza Type B Antigen Negative Negative SARS-CoV-2 Antigen (Rapid) Negative NEGATIVE Venous Blood pH 7.003 *L 7.320-7.430 Venous Blood pCO2 at Patient Temp 16.6 L 38.0-54.0 mmHg Venous Blood pO2 at Patient Temp 49.3 H 23.0-48.0 mmHg Venous Blood HCO3 4.0 L 22.0-29.0 mmol/L Venous Bld O2 Saturation (Measured) 66.0 60.0-85.0 % Venous Blood Base Excess -24.9 L -2.0-3.0 mmol/L Venous Blood Total Hemoglobin 5.5 L 13.5-17.5 g/dL Venous Blood Oxyhemoglobin 65.0 0.0-79.0 % Venous Blood Carboxyhemoglobin 0.4 L 0.5-1.5 % Venous Blood Methemoglobin 1.1 0.0-1.5 % Blood Gas Spontaneous Rate 26 Test 05/09/25 22:33 05/09/25 19:30 Range/Units Troponin I High Sensitivity 92 *H </=54 ng/L B-Type Natriuretic Peptide 528.66 0-100 pg/mL Beta-Hydroxybutyric Acid 0.515 H < 0.4 mmol/L Microbiology Date/Time Source Procedure Growth Status 05/11/25 23:45 Voided Urine Urine Culture - Final Yeast, not Diana albicans Complete 05/10/25 02:49 Nose MRSA Screen - Final Methicillin Resistant S.aureus Complete 05/09/25 19:30 Blood Blood Culture - Final NO GROWTH AFTER 5 DAYS OF INCUBATION. Complete Problems(with codes): (1) Atypical pneumonia (2) Sepsis (3) Urethral stricture (4) DKA, type 1 (5) Hyperkalemia (6) Metabolic encephalopathy (7) Pneumonitis Plan/Recommendation ASSESSMENT AND PLAN: ID Problem List: - Sepsis - Leukocytosis - Diabetes mellitus - CKD stage 3 - Anemia (microcytic) - Congestive heart failure (diastolic dysfunction) - History of cerebral palsy, stroke with residual deficit - Obstructive uropathy, hydronephrosis - Recent pneumonia, now less likely - Fungal urinary tract infection (yeast in urine with Lindsay) - Morbid obesity - Dry fecal ulcer Assessment This is a 44-year-old male with significant comorbidities including cerebral palsy, CKD stage 3, diabetes, history of ischemic stroke with residual deficits, diastolic heart failure, obstructive uropathy, hydronephrosis, and chronic anemia, who presents with altered mental status and evidence of sepsis. At admission: - Altered mental status, minimally verbal, alert and oriented to person only (A&O x1). - Noted shortness of breath at presentation. - Physical exam notable for morbid obesity, coarse rales, no wheezing, A&O x1. - Initial labs: WBC 26.7 (now down to 18.4), hemoglobin 5.9, platelets 287. Alkaline phosphatase 382. Total bilirubin <0.2. Lactic acid 0.7. - Micro: Blood cultures no growth to date, urine positive for yeast, beta hydroxybutyrate 0.505. - BUN/Cr markedly elevated with BUN 123 and creatinine 4.03 (reflecting severe LISANDRO in setting of CKD, slow improvement seen). - Occasional hypoxia to 91%. - Recent temperatures in 97.297.5 F range; pulse 101, respiratory rate 16, BP 131/55 and 155/44, SpO2 100% on room air. - Chest x-ray: Pulmonary edema (mild, improved vs prior), no interval change, pneumonia less likely. - Renal sonogram: hydronephrosis, no new bilateral renal medical disease. - Patient remains NPO. - Treated with IV fluids, vancomycin, Zosyn, then switched to meropenem, vancomycin (now stopped), azithromycin (initially), and fluconazole (for fungal urine). - Received blood transfusion for anemia. - Dry fecal ulcer noted. - Lindsay catheter in place, positive for yeast; recommendation to change Lindsay catheter. - Plan to add clindamycin for anaerobic coverage in setting of chronic, recurrent oral osteomyelitis; can stop vancomycin. - Continue close monitoring of WBC, clinical status, source unclear for leukocytosisconsider possibility of occult infection/abscess. - Head CT recommended to evaluate for abscess related to prior mandibular osteomyelitis. - Outpatient infectious disease follow-up in 4 weeks. Plan: - Continue IV fluids for sepsis as indicated by hemodynamics and renal function - Continue meropenem, add azithromycin for atypical coverage - Stop vancomycin - Consider discontinuing fluconazole if not clinically indicated; recommend changing Lindsay catheter for management of funguria - Continue monitoring for source of persistent leukocytosis and sepsis; obtain head CT - Monitor LISANDRO/CKD, electrolytes, and adjust medications as appropriate - Continue CHF management; monitor for pulmonary edema - Patient remains NPO; address nutritional needs as appropriate - Monitor hematologic indices and transfuse as indicated - Routine wound care for dry fecal ulcer - Follow up infectious disease in 4 weeks - Isolation: standard precautions Assessment and plan was discussed with the patient and care team as written above Plan is subject to change pending incorporation of new incoming information/diagnostics. Updates may be added as addendum at the bottom (OR TOP) of this note Thank you for consult. ID will continue to follow. Please contact Infectious Disease for any questions or concerns. Moise Michael M.D. [facility] Ph: ? Teams text: Electronically signed by: Moise Michael MD, 05/15/2025 History: The patient's chart and medications were reviewed in detail and the patient was seen and examined. History obtained from: Care team/chart review. Mr. Dani Bowling is a 44-year-old male with a history of cerebral palsy, diabetes, prior ischemic stroke with residual deficit, CKD stage 3, obstructive uropathy, diastolic CHF, hypertension, hyperlipidemia, hydronephrosis, and anemia, who presented for evaluation of altered mental status. At baseline, the patient is bedridden and minimally verbal but can answer simple questions with delay. At presentation: Noted shortness of breath, altered mental status, hypoxic episodes, severe anemia, LISANDRO, leukocytosis, and pulmonary edema. Review of Systems: A complete 10 system review of systems was completed and negative except as noted in the HPI or here. ROS: - CONSTITUTIONAL: Altered mental status at baseline. Denies weight loss, fever, chills (not otherwise reported). - HEENT: No acute findings reported. - RESPIRATORY: Shortness of breath at presentation. No current cough. No wheezing. - CV: Denies chest pain. History of CHF. No palpitations reported. - GI: NPO. No report of abdominal pain, nausea, vomiting, or diarrhea. - : Positive for yeast in urine, Lindsay catheter present. No other symptoms discussed. - MSK: No myalgias or joint pain reported. - SKIN: Dry fecal ulcer present. No rash or pruritus reported. - NEUROLOGICAL: Altered mental status. Stroke with residual deficits. No headache or syncope reported. - PSYCHIATRIC: No changes in mood, anxiety, or depression reported. Past Medical History: - Cerebral palsy - Diabetes mellitus - Chronic kidney disease stage 3 - Ischemic stroke with residual deficit - Obstructive uropathy - Diastolic congestive heart failure - Hypertension - Hyperlipidemia - Hydronephrosis - History of mouth/mandibular osteomyelitis - Anemia (microcytic) - Morbid obesity Past Surgical History: History reviewed. No pertinent surgical history provided. Home Medications: Prior to admission medications: - Lisinopril: dose, route, frequency not specified - Furosemide (Lasix): dose, route, frequency not specified - Amlodipine: dose, route, frequency not specified - Atorvastatin: dose, route, frequency not specified - Metformin: dose, route, frequency not specified - Sodium bicarbonate: dose, route, frequency not specified - Tamsulosin: dose, route, frequency not specified Allergies: No known allergies reported. Family History: Not provided in transcript. Social History: Not provided in transcript. Objective: Vital Signs on Arrival: Temp: 97.5 F BP: 131/55 Pulse: 101 Resp: 16 O2 Sat: 100% on room air Most Recent Vital Signs: Temp: 97.2 F BP: 155/44 Resp: 16 SpO2: not specified (room air, occasionally hypoxic to 91%) Admission Weight: Not provided in transcript. BMI: Not provided in transcript. Physical Exam: General: NAD, morbidly obese Neck: Supple. No masses. HEENT: PERRL. Normal lids and conjunctiva. Moist mucous membranes. Oropharynx without lesions, exudates or excessive erythema. Normal appearance of the external aspects of the nose and ears. Heart: Regular rhythm, normal rate. No murmur. No lower extremity edema. Lungs: Normal respiratory effort. Coarse rales. No wheezes. No crackles. Abdomen: Soft. Non-tender. Non-distended. No masses or abdominal hernia. Msk: No digital cyanosis. Normal strength and tone in all 4 limbs Skin: Warm and dry, no rashes. Dry fecal ulcer present. Neuro: Alert. A&O x1. No facial droop or slurred speech. Extra- ocular movements intact. Sensation intact to soft touch in all 4 limbs. Psych: Appropriate mood. Full affect. Oriented to person only. Lines: Lindsay catheter present Other active lines not specified. Diagnostic Studies: Available diagnostic studies were reviewed personally. Significant relevant results and findings are outlined below or addressed in the Assessment and Plan above. Pertinent Imaging: - Chest x-ray: Mild pulmonary edema (improved compared to prior), no interval change, pneumonia less likely. - Renal ultrasound: Bilateral hydronephrosis, no new bilateral renal parenchymal disease. - Head CT: Recommended, pending (to evaluate for possible abscess related to osteomyelitis). Laboratory Results: - WBC 26.7 on admission, down to 18.4 - Hemoglobin 5.9 - Platelets 287 - Alkaline phosphatase 382 - Total bilirubin <0.2 - Lactic acid 0.7 - Beta hydroxybutyrate 0.505 - BUN 123, creatinine 4.03 - Blood cultures no growth to date - Urine: yeast present Isolation Precautions: Standard Other Information: Not provided. END OF NOTE Plan discussed with: Patient MOISE MICHAEL MD May 15, 2025 14:06
[2025-05-15] MEDS: POTASSIUM CHL 20MEQ/100ML 100 ML IV ONE (17:21)
--- NOTE | 2025-05-15 17:45 | ECG ---
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
[2025-05-15] MEDS ORDERED: LINEZOLID 600MG/300ML 300 ML IV SCH (22:00)
[2025-05-16] VITALS (18 sets, daily range): BP systolic 131–174; BP diastolic 88–103; PULSE 87–96; RESP 16–20; TEMP 97.5–98.7; O2SAT 95–100
[2025-05-16 06:43] LABS: Anion Gap 16 (5-15); BUN/Creatinine Ratio 30.7 (10.0-20.0); Carbon Dioxide 21 mmol/L (20-31); Chloride 106 mmol/L (98-107); Glucose 90 mg/dL (74-106); Magnesium 2.0 mg/dL (1.6-2.6); Sodium 143 mmol/L (136-145)
[2025-05-16 06:44] LABS: Alanine Aminotransferase 67 U/L (7-40); Albumin 2.5 g/dL (3.2-4.8); Bilirubin, Total 0.2 mg/dL (0.2-1.0); Calcium 6.4 mg/dL (8.7-10.4); Potassium 3.4 mmol/L (3.5-5.1); Total Protein 5.5 g/dL (5.7-8.2)
[2025-05-16 06:46] LABS: Blood Urea Nitrogen 119 mg/dL (9-23)
[2025-05-16 06:47] LABS: Alkaline Phosphatase 218 U/L (46-116)
[2025-05-16 07:44] LABS: Hematocrit 26.9 % (41.0-53.0); Hemoglobin 8.7 g/dL (13.5-17.5); Mean Corpuscular Hemoglobin 28.6 pg (28.0-32.0); Mean Corpuscular Volume 88.5 fL (80.0-100.0); Nucleated Red Blood Cells % 3.0 %
[2025-05-16] MEDS ORDERED: AZITHROMYCIN 500MG/ 250ML 250 ML IV SCH (10:00)
--- NOTE | 2025-05-16 10:53 | DVHPN2 ---
Progress Note Date Seen: May 16, 2025 Medical Necessity Reason Pt with a Central, PICC or Fol: No Subjective Patient reports: No new complaints Other Systems: Patient seen and examined by myself today in follow-up Objective vital signs Vital Sign Date Time Temp Pulse Resp B/P (MAP) Pulse Ox O2 Delivery O2 Flow Rate FiO2 05/16/25 08:31 97.5 91 20 155/88 (110) 96 97.5 05/16/25 08:09 Room Air* 0 21 Total Intake and Output 05/15/25 05/15/25 05/16/25 15:00 23:00 07:00 Intake Total 1611 ml 0 ml Output Total 550 ml 475 ml Balance 1061 ml -475 ml medications Current Medications Medications Dose Ordered Sig/Wai Route Start Time Stop Time Status Last Admin Dose Admin Nitroglycerin 0.4 mg Q5MINP PRN SL 05/09/25 23:15 Morphine Sulfate 2 mg Q30M PRN IV 05/09/25 23:15 Albuterol 2.5 mg Q6HR NEB 05/10/25 00:00 05/16/25 08:08 2.5 MG Acetylcysteine 200 mg Q6HR NEB 05/10/25 00:00 05/16/25 08:08 200 MG Vancomycin HCl 0 ml @ 0 mls/hr UD IV 05/09/25 23:15 Cancel Pantoprazole Sodium 40 mg DAILY IV 05/10/25 10:00 05/15/25 10:22 40 MG Morphine Sulfate 1 mg Q6HP PRN IV 05/10/25 05:15 05/13/25 03:05 1 MG Meropenem 50 ml @ 17 mls/hr Q12HR IV 05/10/25 22:00 05/15/25 22:21 17 MLS/HR Aspirin 81 mg DAILY PO 05/11/25 10:00 Mupirocin 1 applic BID EACHNOSTRI 05/11/25 22:00 05/16/25 21:59 05/15/25 22:22 1 APPLIC Hydralazine HCl 10 mg Q6HP PRN IV 05/12/25 06:30 05/16/25 00:47 10 MG Ceftriaxone Sodium 50 ml @ 100 mls/hr DAILY@09 IV 05/13/25 09:00 UNV Amino Acids 0 ml @ 0 mls/hr PER PHARMACY IV 05/13/25 16:45 Amino Acids/ Electrolytes/ Dextrose 1,000 ml @ 41 mls/hr DAILY@2200 IV 05/13/25 22:00 05/15/25 22:19 41 MLS/HR Diagnostic Test (Pha) 1 strip Q6HR 05/13/25 00:00 05/16/25 05:40 1 STRIP Insulin Human Regular FOLLOW SLIDING SCALE Q6HR SC 05/13/25 00:00 05/15/25 23:58 2 UNITS Dextrose 50 ml UD IV 05/13/25 00:00 Sodium Bicarbonate 100 ml/Dextrose 1,100 ml @ 100 mls/hr Q11H IV 05/14/25 10:00 05/15/25 22:23 100 MLS/HR Mupirocin 1 applic BID TOP 05/14/25 22:00 05/15/25 22:21 1 APPLIC Linezolid 300 ml @ 150 mls/hr Q12HR IV 05/15/25 22:00 UNV Azithromycin 250 ml @ 125 mls/hr DAILY IV 05/16/25 10:00 UNV Examination: LUNGS:Normal, CVS:Normal, MSK:Abnormal laboratory and microbiology Laboratory Tests 05/16/25 04:54 Test 05/16/25 04:54 Range/Units Serum Glucose 90 74-106 mg/dL Microbiology Date/Time Source Procedure Growth Status 05/11/25 23:45 Voided Urine Urine Culture - Final Yeast, not Diana albicans Complete 05/10/25 02:49 Nose MRSA Screen - Final Methicillin Resistant S.aureus Complete 05/09/25 19:30 Blood Blood Culture - Final NO GROWTH AFTER 5 DAYS OF INCUBATION. Complete Problem List/Assessment/Plan Problem List/Assessment/Plan Acute kidney injury likely acute tubular necrosis in the setting of severe sepsis Severe sepsis Metabolic acidosis Encephalopathy Hypernatremia Hypokalemia Hypocalcemia Hypomagnesemia CVA Bed-bound Chronic Lindsay for greater than one year Multiple admissions in the past one year Previously on hospice before coming here Recommendations Kidney function slightly improving Increased urine output Strict I&Os IVF D5W with 100 mEq/L sodium bicarb at 100 cc/hour Magnesium sulfate IV piggyback KCL replacement Patient failed swallow eval Discussed in detail with mother who is bedside recommended patient might need dialysis for solute clearance however patient's mother mentioned she does not want dialysis for the patient as he has been sick for the last one year and very weak and patient used to be on hospice before coming here Continue supportive care Plan discussed with: Other (Nurse) Dietary Evaluation Review Comments: 1. TPN per pharmacy to meet Pt's daily needs at 48g Protein 1000kcal, when Tube feeding is not feasible. 2. Nepro@25 ml/hr, providing 49g proteinm [id number] free water, once NG feeding becomes feasible, Start at 10ml/hr and increase 10ml Q6hr till reach the goal rate. 3. Renal standard CCHO-60 once pt can tolerate PO feedings Expected Outcomes/Goals: gradual wt gain CC Plasma Assessment Blood Product Administration S: [id number] CARLA NETTLES MD May 16, 2025 10:53
[2025-05-16] MEDS: SODIUM BICARB 50mEq/50ml Vial 100 ML in D5W 5% 1,000 ML IV SCH (11:22)
--- NOTE | 2025-05-16 12:10 | DVH ---
EXAM: XY CHEST XRAY 1 VIEW CLINICAL HISTORY: pna TECHNIQUE: Single AP view of the chest WID: COMPARISON: XY CHEST PORTABLE on DOS: 05/14/25 FINDINGS: Lines and tubes: None Chest: The heart size is slightly obscured due to airspace consolidations. Patchy and confluent airspace opacities bilaterally have increased particularly in the right lung. Pr obable bilateral pleural effusions, greater on the left. No pneumothorax. The osseous structures are grossly intact. IMPRESSION: 1. Increase in patchy and confluent bilateral airspace opacities which could reflect worsening multif ocal pneumonia and/or pulmonary edema. 2. Probable bilateral pleural effusions, greater on the left.
--- NOTE | 2025-05-16 12:35 | DVHPN2 ---
Progress Note Date Seen: May 16, 2025 Medical Necessity Reason Pt with a Central, PICC or Fol: No Subjective Review of Systems: Not Done (unable to obtain) Objective vital signs Vital Sign Date Time Temp Pulse Resp B/P (MAP) Pulse Ox O2 Delivery O2 Flow Rate FiO2 05/16/25 12:26 91 20 100 05/16/25 08:31 97.5 155/88 (110) 97.5 05/16/25 08:09 Room Air* 0 21 Total Intake and Output 05/15/25 05/15/25 05/16/25 15:00 23:00 07:00 Intake Total 1611 ml 0 ml Output Total 550 ml 475 ml Balance 1061 ml -475 ml medications Current Medications Medications Dose Ordered Sig/Wai Route Start Time Stop Time Status Last Admin Dose Admin Nitroglycerin 0.4 mg Q5MINP PRN SL 05/09/25 23:15 Morphine Sulfate 2 mg Q30M PRN IV 05/09/25 23:15 Albuterol 2.5 mg Q6HR NEB 05/10/25 00:00 05/16/25 12:21 2.5 MG Acetylcysteine 200 mg Q6HR NEB 05/10/25 00:00 05/16/25 12:21 200 MG Vancomycin HCl 0 ml @ 0 mls/hr UD IV 05/09/25 23:15 Cancel Pantoprazole Sodium 40 mg DAILY IV 05/10/25 10:00 05/16/25 11:24 40 MG Morphine Sulfate 1 mg Q6HP PRN IV 05/10/25 05:15 05/13/25 03:05 1 MG Meropenem 50 ml @ 17 mls/hr Q12HR IV 05/10/25 22:00 05/16/25 11:12 17 MLS/HR Aspirin 81 mg DAILY PO 05/11/25 10:00 Mupirocin 1 applic BID EACHNOSTRI 05/11/25 22:00 05/16/25 21:59 05/16/25 11:24 1 APPLIC Hydralazine HCl 10 mg Q6HP PRN IV 05/12/25 06:30 05/16/25 00:47 10 MG Ceftriaxone Sodium 50 ml @ 100 mls/hr DAILY@09 IV 05/13/25 09:00 UNV Amino Acids 0 ml @ 0 mls/hr PER PHARMACY IV 05/13/25 16:45 Amino Acids/ Electrolytes/ Dextrose 1,000 ml @ 41 mls/hr DAILY@2200 IV 05/13/25 22:00 05/15/25 22:19 41 MLS/HR Diagnostic Test (Pha) 1 strip Q6HR 05/13/25 00:00 05/16/25 11:59 1 STRIP Insulin Human Regular FOLLOW SLIDING SCALE Q6HR SC 05/13/25 00:00 05/15/25 23:58 2 UNITS Dextrose 50 ml UD IV 05/13/25 00:00 Mupirocin 1 applic BID TOP 05/14/25 22:00 05/16/25 11:24 1 APPLIC Linezolid 300 ml @ 150 mls/hr Q12HR IV 05/15/25 22:00 UNV Azithromycin 250 ml @ 125 mls/hr DAILY IV 05/16/25 10:00 UNV Sodium Bicarbonate 100 ml/Dextrose 1,100 ml @ 100 mls/hr Q11H IV 05/16/25 11:00 05/16/25 11:22 100 MLS/HR Potassium Chloride 100 ml @ 50 mls/hr Q2H IV 05/16/25 11:00 05/16/25 14:59 Examination: GENERAL:Normal, LUNGS:Abnormal (diminished), CVS:Normal, ABDOMEN:Normal, SKIN:Normal, NEURO:Normal laboratory and microbiology Laboratory Tests 05/16/25 04:54 Test 05/16/25 04:54 Range/Units Serum Glucose 90 74-106 mg/dL Microbiology Date/Time Source Procedure Growth Status 05/11/25 23:45 Voided Urine Urine Culture - Final Yeast, not Diana albicans Complete 05/10/25 02:49 Nose MRSA Screen - Final Methicillin Resistant S.aureus Complete 05/09/25 19:30 Blood Blood Culture - Final NO GROWTH AFTER 5 DAYS OF INCUBATION. Complete Labs and/or images reviewed: Labs reviewed by me, Image(s) reviewed by me Problem List/Assessment/Plan Problem List/Assessment/Plan 1. Sepsis IV Abx 2. Acute on chronic anemia Medications, Monitoring 3. LISANDRO with CKD 3b Nephrology consult 4. Bed bound Monitoring 5. CVA with residual deficits Monitoring 6. NSTEMI II, demand ischemia Cardiology consult, monitor EKG 7. MRSA w/ Nares Medications, Monitoring 8. Hyperkalemia r/t LISANDRO Hyperkalemia Tx 9. Hypoglycemia Medications, Monitoring 10. pneumonia gram negative or gram positive Assessment/Plan Subjective Patient remains nonverbal at this time. Objective Patient was admitted for sepsis and LISANDRO with CKD superimposed on stage IIIb. Patient was previously on hospice. Chest x-ray shows worsening Pneumonia. Patient was found to have sepsis related to pneumonia. Patient has NSTEMI type II most likely related to pneumonia and hypoxemia. Patient is bedbound from history of CVA. Urine culture is negative. Blood culture is negative. COVID and influenza is negative. WBC count is improving to 16.0. Per Nephrology's no mother refused dialysis however renal function had slight improvement creatinine is 3.88 and GFR is 19. We will continue IV fluids as per Nephrology. vancomycin was stopped by infectious disease. Plan Continue antibiotics for sepsis and pneumonia with azithromycin per infectious disease. Monitor respiratory status and neurostatus. Planning to DC to hospice services when patient is more stable. IVF per nephrology.keep NPO for now, continue with clinimix. Plan discussed with: Patient, Other Plan discussed with: Patient My Orders My Orders Orders - ASIYA JACQUES Procedure Category Date Status Time Chest Xray 1 View XY 05/16/25 Resulted 09:36 Dietary Evaluation Review Comments: 1. TPN per pharmacy to meet Pt's daily needs at 48g Protein 1000kcal, when Tube feeding is not feasible. 2. Nepro@25 ml/hr, providing 49g proteinm 1062 [id number] free water, once NG feeding becomes feasible, Start at 10ml/hr and increase 10ml Q6hr till reach the goal rate. 3. Renal standard CCHO-60 once pt can tolerate PO feedings Expected Outcomes/Goals: gradual wt gain Date of Service: May 16, 2025 Billing Provider: MARIBEL WHALEN MD Common Visit Codes: [id number] INP/OBS CARE (MOD) CC Plasma Assessment Blood Product Administration S: [id number] ASIYA JACQUES May 16, 2025 12:35
[2025-05-16] MEDS: POTASSIUM CHL 20MEQ/100ML 100 ML IV ONE (14:43)
--- NOTE | 2025-05-16 14:59 | DVHPN2 ---
Progress Note - Dictate Date Seen: May 16, 2025 Medical Necessity Reason Pt with a Central, PICC or Fol: No vital signs Vital Sign Date Time Temp Pulse Resp B/P (MAP) Pulse Ox O2 Delivery O2 Flow Rate FiO2 05/16/25 13:00 98.1 89 18 154/94 (114) 96 98.1 05/16/25 10:05 Room Air* 0 21 Total Intake and Output 05/15/25 05/15/25 05/16/25 15:00 23:00 07:00 Intake Total 1611 ml 0 ml Output Total 550 ml 475 ml Balance 1061 ml -475 ml medications Current Medications Medications Dose Ordered Sig/Wai Route Start Time Stop Time Status Last Admin Dose Admin Nitroglycerin 0.4 mg Q5MINP PRN SL 05/09/25 23:15 Morphine Sulfate 2 mg Q30M PRN IV 05/09/25 23:15 Albuterol 2.5 mg Q6HR NEB 05/10/25 00:00 05/16/25 12:21 2.5 MG Acetylcysteine 200 mg Q6HR NEB 05/10/25 00:00 05/16/25 12:21 200 MG Vancomycin HCl 0 ml @ 0 mls/hr UD IV 05/09/25 23:15 Cancel Pantoprazole Sodium 40 mg DAILY IV 05/10/25 10:00 05/16/25 11:24 40 MG Morphine Sulfate 1 mg Q6HP PRN IV 05/10/25 05:15 05/13/25 03:05 1 MG Meropenem 50 ml @ 17 mls/hr Q12HR IV 05/10/25 22:00 05/16/25 11:12 17 MLS/HR Aspirin 81 mg DAILY PO 05/11/25 10:00 Mupirocin 1 applic BID EACHNOSTRI 05/11/25 22:00 05/16/25 21:59 05/16/25 11:24 1 APPLIC Hydralazine HCl 10 mg Q6HP PRN IV 05/12/25 06:30 05/16/25 00:47 10 MG Ceftriaxone Sodium 50 ml @ 100 mls/hr DAILY@09 IV 05/13/25 09:00 UNV Amino Acids 0 ml @ 0 mls/hr PER PHARMACY IV 05/13/25 16:45 Amino Acids/ Electrolytes/ Dextrose 1,000 ml @ 41 mls/hr DAILY@2200 IV 05/13/25 22:00 05/15/25 22:19 41 MLS/HR Diagnostic Test (Pha) 1 strip Q6HR 05/13/25 00:00 05/16/25 11:59 1 STRIP Insulin Human Regular FOLLOW SLIDING SCALE Q6HR SC 05/13/25 00:00 05/15/25 23:58 2 UNITS Dextrose 50 ml UD IV 05/13/25 00:00 Mupirocin 1 applic BID TOP 05/14/25 22:00 05/16/25 11:24 1 APPLIC Linezolid 300 ml @ 150 mls/hr Q12HR IV 05/15/25 22:00 UNV Azithromycin 250 ml @ 125 mls/hr DAILY IV 05/16/25 10:00 UNV Sodium Bicarbonate 100 ml/Dextrose 1,100 ml @ 100 mls/hr Q11H IV 05/16/25 11:00 05/16/25 11:22 100 MLS/HR Potassium Chloride 100 ml @ 50 mls/hr Q2H IV 05/16/25 11:00 05/16/25 14:59 laboratory and microbiology Laboratory Tests 05/16/25 04:54 Test 05/16/25 04:54 Range/Units Serum Glucose 90 74-106 mg/dL Assessment/Plan Assessment/Plan Patient is a 44-year-old gentleman who presented with altered mental status/shortness of breath. He is at baseline poor historian. Information was obtained by reviewing the chart and communicating with staff. It seems that since arrival the patient was found to have severe sepsis and multiorgan dysfunction. He has been on supplemental oxygen. 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 Reportedly on arrival to Emergency room blood pressure was low on later improved. Cardiology is involved for cardiac aspects of care. There is no report of chest pain. Lying flat in bed. No JVD. Mucosa is pink and wet. Scattered rhonchi in the lungs is heard. Cardiac: Regular, tachycardic, no thrill. Systolic murmur 2/6 in apex is heard. Abdomen is soft. There is no gross mass. There is no hepatomegaly. Extremities do not reveal edema. Dorsalis pedis is 2+ bilateral Past medical history reportedly includes old history of CVA with poor functional capacity, CKD, hypertension, hyperlipidemia, diabetes mellitus, repeated history of sepsis, history of urethral stricture and recurrent UTI, history of phimosis anemia and bed-bound at baseline. There was question if the patient has baseline history of diastolic heart failure Echocardiogram of December 2024 revealed ejection fraction of 64%, trace MR/TR and right ventricular systolic pressure of 34 mm Hg. WBC: 26.7 - 20.8 - 29.9 - 29.4 - 28.4 - 18.4 - 16.0 Hemoglobin: 5.9 - 6.8 - 7.8 - 9.0 - 9.5 - 8.4 - 8.7 BNP: 528.66 Creatinine: 5.69 - 5.7 - 4.72 - 4.86 - 4.67 - 4.73 - 4.70 - 4.77 - 4.84 - 4.51 - 4.03 - 3.88 Potassium: 8.0 - 7.6 - 5.8 - 5.8 - 5.0 - 5.0 - 5.0 - 4.9 - 4.4 - 3.2 - 3.4 Sodium: 147 - 146 - 153 - 154 - 157 - 155 - 154 - 152 - 150 - 147 - 143 AST/ALT: 96/66 - 468/478 - 257/349 - 11/218 Troponin (high sensitive): 81 - 89 - 92 Chest x-ray reported: IMPRESSION: Findings suggest a mild degree of pulmonary edema which is decreased compared to the prior study on 01/11/2025. Pneumonia is considered less likely Repeat chest xry revealed: IMPRESSION: 1. No interval change. Repeat chest xry revealed: IMPRESSION: 1. Increase in patchy and confluent bilateral airspace opacities which could reflect worsening multifocal pneumonia and/or pulmonary edema.2. Probable bilateral pleural effusions, greater on the left. Renal ultrasound reported: IMPRESSION: Bilateral medical renal disease. EKG revealed sinus tachycardia Tele shows sinus tachycardia Echocardiogram revealed: Left ventricle: Mild diffuse hypokinesis of left ventricle was seen. LVEF was around 50%. Right ventricle was normal size with mildly reduced systolic function. Both atria were normal size. Aortic valve was trileaflet. There was no aortic insufficiency/stenosis. There was mild mitral/tricuspid regurgitation. There was no pulmonary valve insufficiency. Right ventricular systolic pressure was assessed at 35 mm Hg. There was trace pericardial effusion. Patient is a 44-year-old gentleman who was at baseline bed-bound with old history of CVA who presented with altered mental status and shortness of breath. Presentation is in favor acute respiratory failure secondary to sepsis. Multiorgan failure secondary to sepsis is considered. Minimal increase in troponin is considered to reflect demand ischemia in a patient with questionable history of diastolic heart failure. In December 2024 ejection fraction in echocardiogram was 64% with no specific increase in right ventricular systolic pressure. Acute respiratory failure Sepsis Encephalopathy, metabolic versus toxic LISANDRO on CKD ATN Demand ischemia Hypernatremia Hypokalemia Anemia Cardiac suggestion for management: Manage in tele Fluid resuscitation as per Nephrology Follow-up electrolytes and kidney function tests and correct abnormalities Aspirin: 81 mg daily with old history of CVA is suggested DVT prophylaxis as per primary team Control hypertension Management of sepsis/infection as per primary team Pulmonary follow-up Nephrology follow up Further evaluation and management depends on the above and clinical course A total of 55 minutes was spent reviewing the patient record, examining the patient, making a diagnostic and therapeutic plan, discussing this plan with medical personnel, following up on diagnostic studies and following the patient for clinical stability excluding any and all procedures. At least 50% of this time was spent in direct, [id number] contact. Thank you for allowing me to participate in this patient's care. Further recommendations will depend on patient's clinical course. Please do not hesitate to contact me if you have any questions or concerns. This medical document was created using electronic medical record system with [employer] computerized dictation system. Although this document has been carefully reviewed, there may still be some phonetic and typographical errors. These areas are purely typographical due to the imperfection of the software programs, and do not reflect any compromise in the patient's medical care. Dietary Evaluation Review Comments: 1. TPN per pharmacy to meet Pt's daily needs at 48g Protein 1000kcal, when Tube feeding is not feasible. 2. Nepro@25 ml/hr, providing 49g proteinm 1062 [id number] free water, once NG feeding becomes feasible, Start at 10ml/hr and increase 10ml Q6hr till reach the goal rate. 3. Renal standard CCHO-60 once pt can tolerate PO feedings Expected Outcomes/Goals: gradual wt gain Plan discussed with: Patient (Patient and primary RN) CC Plasma Assessment Blood Product Administration S: [id number] MAYCOL GRIFFITH ARCHITECTURAL REPRESENTATIVE May 16, 2025 14:59
--- NOTE | 2025-05-16 15:38 | DVHPN2 ---
Progress Note - Dictate Date Seen: May 16, 2025 Medical Necessity Reason Pt with a Central, PICC or Fol: No vital signs Vital Sign Date Time Temp Pulse Resp B/P (MAP) Pulse Ox O2 Delivery O2 Flow Rate FiO2 05/16/25 13:00 98.1 89 18 154/94 (114) 96 98.1 05/16/25 10:05 Room Air* 0 21 Total Intake and Output 05/15/25 05/15/25 05/16/25 15:00 23:00 07:00 Intake Total 1611 ml 0 ml Output Total 550 ml 475 ml Balance 1061 ml -475 ml medications Current Medications Medications Dose Ordered Sig/Wai Route Start Time Stop Time Status Last Admin Dose Admin Nitroglycerin 0.4 mg Q5MINP PRN SL 05/09/25 23:15 Morphine Sulfate 2 mg Q30M PRN IV 05/09/25 23:15 Albuterol 2.5 mg Q6HR NEB 05/10/25 00:00 05/16/25 12:21 2.5 MG Acetylcysteine 200 mg Q6HR NEB 05/10/25 00:00 05/16/25 12:21 200 MG Vancomycin HCl 0 ml @ 0 mls/hr UD IV 05/09/25 23:15 Cancel Pantoprazole Sodium 40 mg DAILY IV 05/10/25 10:00 05/16/25 11:24 40 MG Morphine Sulfate 1 mg Q6HP PRN IV 05/10/25 05:15 05/13/25 03:05 1 MG Meropenem 50 ml @ 17 mls/hr Q12HR IV 05/10/25 22:00 05/16/25 11:12 17 MLS/HR Aspirin 81 mg DAILY PO 05/11/25 10:00 Mupirocin 1 applic BID EACHNOSTRI 05/11/25 22:00 05/16/25 21:59 05/16/25 11:24 1 APPLIC Hydralazine HCl 10 mg Q6HP PRN IV 05/12/25 06:30 05/16/25 00:47 10 MG Ceftriaxone Sodium 50 ml @ 100 mls/hr DAILY@09 IV 05/13/25 09:00 UNV Amino Acids 0 ml @ 0 mls/hr PER PHARMACY IV 05/13/25 16:45 Amino Acids/ Electrolytes/ Dextrose 1,000 ml @ 41 mls/hr DAILY@2200 IV 05/13/25 22:00 05/15/25 22:19 41 MLS/HR Diagnostic Test (Pha) 1 strip Q6HR 05/13/25 00:00 05/16/25 11:59 1 STRIP Insulin Human Regular FOLLOW SLIDING SCALE Q6HR SC 05/13/25 00:00 05/15/25 23:58 2 UNITS Dextrose 50 ml UD IV 05/13/25 00:00 Mupirocin 1 applic BID TOP 05/14/25 22:00 05/16/25 11:24 1 APPLIC Linezolid 300 ml @ 150 mls/hr Q12HR IV 05/15/25 22:00 UNV Azithromycin 250 ml @ 125 mls/hr DAILY IV 05/16/25 10:00 UNV Sodium Bicarbonate 100 ml/Dextrose 1,100 ml @ 100 mls/hr Q11H IV 05/16/25 11:00 05/16/25 11:22 100 MLS/HR Calcium Gluconate/ Sodium Chloride 50 ml @ 100 mls/hr Q30M IV 05/16/25 15:45 05/16/25 16:44 UNV laboratory and microbiology Laboratory Tests 05/16/25 04:54 Test 05/16/25 04:54 Range/Units Serum Glucose 90 74-106 mg/dL Assessment/Plan Impression Acute hypoxemic respiratory failure Altered mental status Pneumonia Sepsis UTI Patient seen and examined Events Low oxygen requirements On room air No acute events Chest x-ray reviewed Labs reviewed Management Supplemental oxygen as needed Titrate to maintain sats 90% or above Incentive spirometry Continue antibiotics F/u cultures Bronchodilators Monitor renal function F/u nephrology, management deferred Monitor electrolytes Supplement as needed Monitor blood count Transfuse blood products as needed Okay to discharge from pulmonary standpoint DVT prophylaxis Dietary Evaluation Review Comments: 1. TPN per pharmacy to meet Pt's daily needs at 48g Protein 1000kcal, when Tube feeding is not feasible. 2. Nepro@25 ml/hr, providing 49g proteinm 1062 [id number] free water, once NG feeding becomes feasible, Start at 10ml/hr and increase 10ml Q6hr till reach the goal rate. 3. Renal standard CCHO-60 once pt can tolerate PO feedings Expected Outcomes/Goals: gradual wt gain Plan discussed with: Patient CC Plasma Assessment Blood Product Administration S: [id number] SYD JACOBS MD May 16, 2025 15:38
[2025-05-16] MEDS: POTASSIUM CHL 20MEQ/100ML 100 ML IV SCH (16:27)
[2025-05-16] MEDS: CALCIUM GLUC 1,000mg/50ml-NS 50 ML IV SCH (17:56)
[2025-05-16] MEDS: DOXYCYCLINE 100MG/100ML 100 ML IV SCH (20:36)
[2025-05-17] VITALS (18 sets, daily range): BP systolic 130–171; BP diastolic 84–109; PULSE 72–96; RESP 16–20; TEMP 97.1–98.9; O2SAT 95–100
[2025-05-17 06:59] LABS: Anion Gap 13 (5-15); BUN/Creatinine Ratio 31.4 (10.0-20.0); Carbon Dioxide 22 mmol/L (20-31); Chloride 105 mmol/L (98-107); Magnesium 1.8 mg/dL (1.6-2.6); Potassium 4.0 mmol/L (3.5-5.1); Sodium 140 mmol/L (136-145)
[2025-05-17 07:07] LABS: Alanine Aminotransferase 42 U/L (7-40); Alkaline Phosphatase 180 U/L (46-116); Bilirubin, Total 0.2 mg/dL (0.2-1.0); Calcium 6.6 mg/dL (8.7-10.4); Glucose 107 mg/dL (74-106); Total Protein 4.8 g/dL (5.7-8.2)
[2025-05-17 07:08] LABS: Albumin 2.1 g/dL (3.2-4.8)
[2025-05-17 07:09] LABS: Blood Urea Nitrogen 116 mg/dL (9-23)
--- NOTE | 2025-05-17 07:58 | DVHPN2 ---
Progress Note - Dictate Date Seen: May 17, 2025 Medical Necessity Reason Pt with a Central, PICC or Fol: No vital signs Vital Sign Date Time Temp Pulse Resp B/P (MAP) Pulse Ox O2 Delivery O2 Flow Rate FiO2 05/17/25 06:51 80 16 100 05/17/25 06:41 Room Air* 0 21 05/17/25 05:00 98.0 146/91 (109) 98.0 Total Intake and Output 05/16/25 05/16/25 05/17/25 15:00 23:00 07:00 Intake Total 450 ml 1550 ml 1287 ml Output Total 300 ml 740 ml Balance 450 ml 1250 ml 547 ml medications Current Medications Medications Dose Ordered Sig/Wai Route Start Time Stop Time Status Last Admin Dose Admin Nitroglycerin 0.4 mg Q5MINP PRN SL 05/09/25 23:15 Morphine Sulfate 2 mg Q30M PRN IV 05/09/25 23:15 Albuterol 2.5 mg Q6HR NEB 05/10/25 00:00 05/17/25 06:41 2.5 MG Acetylcysteine 200 mg Q6HR NEB 05/10/25 00:00 05/17/25 06:42 200 MG Vancomycin HCl 0 ml @ 0 mls/hr UD IV 05/09/25 23:15 Cancel Pantoprazole Sodium 40 mg DAILY IV 05/10/25 10:00 05/16/25 11:24 40 MG Morphine Sulfate 1 mg Q6HP PRN IV 05/10/25 05:15 05/13/25 03:05 1 MG Meropenem 50 ml @ 17 mls/hr Q12HR IV 05/10/25 22:00 05/16/25 22:00 17 MLS/HR Aspirin 81 mg DAILY PO 05/11/25 10:00 Hydralazine HCl 10 mg Q6HP PRN IV 05/12/25 06:30 05/17/25 01:11 10 MG Ceftriaxone Sodium 50 ml @ 100 mls/hr DAILY@09 IV 05/13/25 09:00 UNV Amino Acids 0 ml @ 0 mls/hr PER PHARMACY IV 05/13/25 16:45 Amino Acids/ Electrolytes/ Dextrose 1,000 ml @ 41 mls/hr DAILY@2200 IV 05/13/25 22:00 05/16/25 23:04 41 MLS/HR Diagnostic Test (Pha) 1 strip Q6HR 05/13/25 00:00 05/17/25 06:00 1 STRIP Insulin Human Regular FOLLOW SLIDING SCALE Q6HR SC 05/13/25 00:00 05/17/25 00:21 4 UNITS Dextrose 50 ml UD IV 05/13/25 00:00 Mupirocin 1 applic BID TOP 05/14/25 22:00 05/16/25 23:00 1 APPLIC Linezolid 300 ml @ 150 mls/hr Q12HR IV 05/15/25 22:00 UNV Sodium Bicarbonate 100 ml/Dextrose 1,100 ml @ 100 mls/hr Q11H IV 05/16/25 11:00 05/16/25 11:22 100 MLS/HR Doxycycline Hyclate 100 ml @ 50 mls/hr Q12H IV 05/16/25 17:00 05/23/25 23:59 05/17/25 04:43 50 MLS/HR laboratory and microbiology Laboratory Tests 05/17/25 05:14 05/16/25 04:54 Test 05/17/25 05:14 Range/Units Serum Glucose 107 H 74-106 mg/dL Assessment/Plan Patient is a 44-year-old gentleman who presented with altered mental status/shortness of breath. He is at baseline poor historian. Information was obtained by reviewing the chart and communicating with staff. It seems that since arrival the patient was found to have severe sepsis and multiorgan dysfunction. He has been on supplemental oxygen. 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 Reportedly on arrival to Emergency room blood pressure was low on later improved. Cardiology is involved for cardiac aspects of care. There is no report of chest pain. Lying flat in bed. No JVD. Mucosa is pink and wet. Scattered rhonchi in the lungs is heard. Cardiac: Regular, tachycardic, no thrill. Systolic murmur 2/6 in apex is heard. Abdomen is soft. There is no gross mass. There is no hepatomegaly. Extremities do not reveal edema. Dorsalis pedis is 2+ bilateral Past medical history reportedly includes old history of CVA with poor functional capacity, CKD, hypertension, hyperlipidemia, diabetes mellitus, repeated history of sepsis, history of urethral stricture and recurrent UTI, history of phimosis anemia and bed-bound at baseline. There was question if the patient has baseline history of diastolic heart failure Echocardiogram of December 2024 revealed ejection fraction of 64%, trace MR/TR and right ventricular systolic pressure of 34 mm Hg. WBC: 26.7 - 20.8 - 29.9 - 29.4 - 28.9 - 21.8 - 18.4 - 16.0 Hemoglobin: 5.9 - 6.8 - 7.8 - 9.0 - 9.5 - 8.5 - 8.4 - 8.7 BNP: 528.66 Creatinine: 5.69 - 5.7 - 4.72 - 4.86 - 4.67 - 4.73 - 4.70 - 4.77 - 4.84 - 4.51 - 4.46 - 4.03 - 4.03 - 3.88 - 3.69 Potassium: 8.0 - 7.6 - 5.8 - 5.8 - 5.0 - 5.0 - 5.0 - 4.9 - 4.4 - 3.9 - 3.2 - 3.2 - 3.4 - 4.0 Sodium: 147 - 146 - 153 - 154 - 157 - 155 - 154 - 152 - 150 - 150 - 147 - 147 - 143 - 140 AST/ALT: 96/66 - 468/478 - 257/349 - 15/118 - 11/67 - 10/42 Troponin (high sensitive): 81 - 89 - 92 Chest x-ray reported: IMPRESSION: Findings suggest a mild degree of pulmonary edema which is decreased compared to the prior study on 01/11/2025. Pneumonia is considered less likely Repeat chest xry revealed: IMPRESSION: 1. No interval change. Repeat chest xry revealed: 1. Increase in patchy and confluent bilateral airspace opacities which could reflect worsening multifocal pneumonia and/or pulmonary edema. 2. Probable bilateral pleural effusions, greater on the left. Renal ultrasound reported: IMPRESSION: Bilateral medical renal disease. EKG revealed sinus tachycardia Tele shows sinus tachycardia Echocardiogram revealed: Left ventricle: Mild diffuse hypokinesis of left ventricle was seen. LVEF was around 50%. Right ventricle was normal size with mildly reduced systolic function. Both atria were normal size. Aortic valve was trileaflet. There was no aortic insufficiency/stenosis. There was mild mitral/tricuspid regurgitation. There was no pulmonary valve insufficiency. Right ventricular systolic pressure was assessed at 35 mm Hg. There was trace pericardial effusion. Patient is a 44-year-old gentleman who was at baseline bed-bound with old history of CVA who presented with altered mental status and shortness of breath. Presentation is in favor acute respiratory failure secondary to sepsis. Multiorgan failure secondary to sepsis is considered. Minimal increase in troponin is considered to reflect demand ischemia in a patient with questionable history of diastolic heart failure. In December 2024 ejection fraction in echocardiogram was 64% with no specific increase in right ventricular systolic pressure. Acute respiratory failure Sepsis Encephalopathy, metabolic versus toxic LISANDRO on CKD ATN Demand ischemia Hypernatremia Hypokalemia Anemia Cardiac suggestion for management: Manage in tele Fluid resuscitation as per Nephrology Follow-up electrolytes and kidney function tests and correct abnormalities Aspirin: 81 mg daily with old history of CVA is suggested DVT prophylaxis as per primary team Has failed swallowing evaluation Control hypertension Management of sepsis/infection as per primary team Pulmonary follow-up Nephrology follow up Recognizing co-morbidities, prognosis is poor Further evaluation and management depends on the above and clinical course A total of 55 minutes was spent reviewing the patient record, examining the patient, making a diagnostic and therapeutic plan, discussing this plan with medical personnel, following up on diagnostic studies and following the patient for clinical stability excluding any and all procedures. At least 50% of this time was spent in direct, [id number] contact. Thank you for allowing me to participate in this patient's care. Further recommendations will depend on patient's clinical course. Please do not hesitate to contact me if you have any questions or concerns. This medical document was created using electronic medical record system with [employer] computerized dictation system. Although this document has been carefully reviewed, there may still be some phonetic and typographical errors. These areas are purely typographical due to the imperfection of the software programs, and do not reflect any compromise in the patient's medical care. Dietary Evaluation Review Comments: 1. TPN per pharmacy to meet Pt's daily needs at 48g Protein 1000kcal, when Tube feeding is not feasible. 2. Nepro@25 ml/hr, providing 49g proteinm 1062 [id number] free water, once NG feeding becomes feasible, Start at 10ml/hr and increase 10ml Q6hr till reach the goal rate. 3. Renal standard CCHO-60 once pt can tolerate PO feedings Expected Outcomes/Goals: gradual wt gain Plan discussed with: Other (nurse) CC Plasma Assessment Blood Product Administration S: [id number] FAN HAMEED MD May 17, 2025 07:57
--- NOTE | 2025-05-17 10:29 | DVHPN2 ---
Progress Note Date Seen: May 17, 2025 Medical Necessity Reason Pt with a Central, PICC or Fol: No Subjective Patient reports: No new complaints Other Systems: Patient seen and examined by myself today in follow-up Objective vital signs Vital Sign Date Time Temp Pulse Resp B/P (MAP) Pulse Ox O2 Delivery O2 Flow Rate FiO2 05/17/25 09:37 99 Room Air 0.0 05/17/25 09:36 21 05/17/25 08:44 98.9 92 18 130/84 (99) 98.9 Total Intake and Output 05/16/25 05/16/25 05/17/25 15:00 23:00 07:00 Intake Total 450 ml 1550 ml 1287 ml Output Total 300 ml 740 ml Balance 450 ml 1250 ml 547 ml medications Current Medications Medications Dose Ordered Sig/Wai Route Start Time Stop Time Status Last Admin Dose Admin Nitroglycerin 0.4 mg Q5MINP PRN SL 05/09/25 23:15 Morphine Sulfate 2 mg Q30M PRN IV 05/09/25 23:15 Albuterol 2.5 mg Q6HR NEB 05/10/25 00:00 05/17/25 06:41 2.5 MG Acetylcysteine 200 mg Q6HR NEB 05/10/25 00:00 05/17/25 06:42 200 MG Vancomycin HCl 0 ml @ 0 mls/hr UD IV 05/09/25 23:15 Cancel Pantoprazole Sodium 40 mg DAILY IV 05/10/25 10:00 05/17/25 09:49 40 MG Morphine Sulfate 1 mg Q6HP PRN IV 05/10/25 05:15 05/13/25 03:05 1 MG Meropenem 50 ml @ 17 mls/hr Q12HR IV 05/10/25 22:00 05/17/25 09:49 17 MLS/HR Aspirin 81 mg DAILY PO 05/11/25 10:00 Hydralazine HCl 10 mg Q6HP PRN IV 05/12/25 06:30 05/17/25 01:11 10 MG Ceftriaxone Sodium 50 ml @ 100 mls/hr DAILY@09 IV 05/13/25 09:00 UNV Amino Acids 0 ml @ 0 mls/hr PER PHARMACY IV 05/13/25 16:45 Amino Acids/ Electrolytes/ Dextrose 1,000 ml @ 41 mls/hr DAILY@2200 IV 05/13/25 22:00 05/16/25 23:04 41 MLS/HR Diagnostic Test (Pha) 1 strip Q6HR 05/13/25 00:00 05/17/25 06:00 1 STRIP Insulin Human Regular FOLLOW SLIDING SCALE Q6HR SC 05/13/25 00:00 05/17/25 00:21 4 UNITS Dextrose 50 ml UD IV 05/13/25 00:00 Mupirocin 1 applic BID TOP 05/14/25 22:00 05/17/25 09:41 1 APPLIC Linezolid 300 ml @ 150 mls/hr Q12HR IV 05/15/25 22:00 UNV Sodium Bicarbonate 100 ml/Dextrose 1,100 ml @ 100 mls/hr Q11H IV 05/16/25 11:00 05/17/25 09:32 100 MLS/HR Doxycycline Hyclate 100 ml @ 50 mls/hr Q12H IV 05/16/25 17:00 05/23/25 23:59 05/17/25 04:43 50 MLS/HR Examination: LUNGS:Normal, CVS:Normal, MSK:Abnormal laboratory and microbiology Laboratory Tests 05/17/25 05:14 05/16/25 04:54 Test 05/17/25 05:14 Range/Units Serum Glucose 107 H 74-106 mg/dL Microbiology Date/Time Source Procedure Growth Status 05/11/25 23:45 Voided Urine Urine Culture - Final Yeast, not Diana albicans Complete 05/10/25 02:49 Nose MRSA Screen - Final Methicillin Resistant S.aureus Complete 05/09/25 19:30 Blood Blood Culture - Final NO GROWTH AFTER 5 DAYS OF INCUBATION. Complete Problem List/Assessment/Plan Problem List/Assessment/Plan Acute kidney injury likely acute tubular necrosis in the setting of severe sepsis Severe sepsis Metabolic acidosis Encephalopathy Hypernatremia Hypokalemia Hypocalcemia Hypomagnesemia Hyperphosphatemia CVA Bed-bound Chronic Lindsay for greater than one year Multiple admissions in the past one year Previously on hospice before coming here Recommendations Kidney function slightly improving Increased urine output Strict I&Os IVF D5W with 100 mEq/L sodium bicarb at 100 cc/hour Magnesium sulfate IV piggyback KCL replacement Patient failed swallow eval Discussed in detail with mother who is bedside recommended patient might need dialysis for solute clearance however patient's mother mentioned she does not want dialysis for the patient as he has been sick for the last one year and very weak and patient used to be on hospice before coming here Continue supportive care Plan discussed with: Other (Nurse and mom) My Orders My Orders Orders - CARLA NETTLES MD Procedure Category Date Status Time D5w 5% (Dextrose 5%) PHA 05/16/25 In Process W/Sodium Bicarb 50m 11:00 Dietary Evaluation Review Comments: 1. TPN per pharmacy to meet Pt's daily needs at 48g Protein 1000kcal, when Tube feeding is not feasible. 2. Nepro@25 ml/hr, providing 49g proteinm 1062 [id number] free water, once NG feeding becomes feasible, Start at 10ml/hr and increase 10ml Q6hr till reach the goal rate. 3. Renal standard CCHO-60 once pt can tolerate PO feedings Expected Outcomes/Goals: gradual wt gain CC Plasma Assessment Blood Product Administration S: [id number] CARLA NETTLES MD May 17, 2025 10:29
[2025-05-17] MEDS: CALCIUM GLUC 1,000mg/50ml-NS 50 ML IV ONE (15:54)
--- NOTE | 2025-05-17 15:59 | DVHPN2 ---
Progress Note - Dictate Date Seen: May 17, 2025 Medical Necessity Reason Pt with a Central, PICC or Fol: No vital signs Vital Sign Date Time Temp Pulse Resp B/P (MAP) Pulse Ox O2 Delivery O2 Flow Rate FiO2 05/17/25 12:33 97.3 82 16 135/89 (104) 96 97.3 05/17/25 09:37 Room Air 0.0 05/17/25 09:36 21 Total Intake and Output 05/16/25 05/16/25 05/17/25 15:00 23:00 07:00 Intake Total 450 ml 1550 ml 1287 ml Output Total 300 ml 740 ml Balance 450 ml 1250 ml 547 ml medications Current Medications Medications Dose Ordered Sig/Wai Route Start Time Stop Time Status Last Admin Dose Admin Nitroglycerin 0.4 mg Q5MINP PRN SL 05/09/25 23:15 Morphine Sulfate 2 mg Q30M PRN IV 05/09/25 23:15 Albuterol 2.5 mg Q6HR NEB 05/10/25 00:00 05/17/25 11:18 2.5 MG Acetylcysteine 200 mg Q6HR NEB 05/10/25 00:00 05/17/25 11:18 200 MG Vancomycin HCl 0 ml @ 0 mls/hr UD IV 05/09/25 23:15 Cancel Pantoprazole Sodium 40 mg DAILY IV 05/10/25 10:00 05/17/25 09:49 40 MG Morphine Sulfate 1 mg Q6HP PRN IV 05/10/25 05:15 05/13/25 03:05 1 MG Meropenem 50 ml @ 17 mls/hr Q12HR IV 05/10/25 22:00 05/17/25 09:49 17 MLS/HR Aspirin 81 mg DAILY PO 05/11/25 10:00 Hydralazine HCl 10 mg Q6HP PRN IV 05/12/25 06:30 05/17/25 01:11 10 MG Ceftriaxone Sodium 50 ml @ 100 mls/hr DAILY@09 IV 05/13/25 09:00 UNV Amino Acids 0 ml @ 0 mls/hr PER PHARMACY IV 05/13/25 16:45 Amino Acids/ Electrolytes/ Dextrose 1,000 ml @ 41 mls/hr DAILY@2200 IV 05/13/25 22:00 05/16/25 23:04 41 MLS/HR Diagnostic Test (Pha) 1 strip Q6HR 05/13/25 00:00 05/17/25 12:24 1 STRIP Insulin Human Regular FOLLOW SLIDING SCALE Q6HR SC 05/13/25 00:00 05/17/25 00:21 4 UNITS Dextrose 50 ml UD IV 05/13/25 00:00 Mupirocin 1 applic BID TOP 05/14/25 22:00 05/17/25 09:41 1 APPLIC Linezolid 300 ml @ 150 mls/hr Q12HR IV 05/15/25 22:00 UNV Sodium Bicarbonate 100 ml/Dextrose 1,100 ml @ 100 mls/hr Q11H IV 05/16/25 11:00 05/17/25 09:32 100 MLS/HR Doxycycline Hyclate 100 ml @ 50 mls/hr Q12H IV 05/16/25 17:00 05/23/25 23:59 05/17/25 04:43 50 MLS/HR objective General Appearance: alert, no distress HEENT: EOMI, PERRLA, normal external inspect of ears, no icterus, no nasal drainage Neck: no carotid bruit, no jugular venous distention (JVD), no lymphadenopathy Chest: normal thorax Respiratory: clear to auscultation, normal air movement Cardiovascular: regular rate and rhythm, no diastolic murmur, no jugular venous distention (JVD), no rub, no systolic murmur Abdominal: soft, no hepatomegaly, no mass, no splenomegaly, no tenderness Genitourinary: grossly normal external Musculoskeletal: no joint tenderness, no swelling Extremities: normal pulses, no calf tenderness, no clubbing, no cyanosis, no edema Skin: no bruising, no jaundice, no rash Neurological: alert, No focal deficit laboratory and microbiology Laboratory Tests 05/17/25 05:14 05/16/25 04:54 Test 05/17/25 05:14 Range/Units Serum Glucose 107 H 74-106 mg/dL Problem List 1. Sepsis IV Abx 2. Acute on chronic anemia Medications, Monitoring 3. LISANDRO with CKD 3b Nephrology consult 4. Bed bound Monitoring 5. CVA with residual deficits Monitoring 6. NSTEMI II, demand ischemia Cardiology consult, monitor EKG 7. MRSA w/ Nares Medications, Monitoring 8. Hyperkalemia r/t LISANDRO Hyperkalemia Tx 9. Hypoglycemia Medications, Monitoring Assessment/Plan Subjective Patient's mentation is unchanged. Objective Patient was previously on hospice. Patient in for LISANDRO superimposed on CKD. Not much change. Most likely this is patient's new baseline. Family does not want to pursue hemodialysis. Creatinine is improved. Plan Discharge planning back on hospice. Possible planning for discharge in AM. Dietary Evaluation Review Comments: 1. TPN per pharmacy to meet Pt's daily needs at 48g Protein 1000kcal, when Tube feeding is not feasible. 2. Nepro@25 ml/hr, providing 49g proteinm 1062 [id number] free water, once NG feeding becomes feasible, Start at 10ml/hr and increase 10ml Q6hr till reach the goal rate. 3. Renal standard CCHO-60 once pt can tolerate PO feedings Expected Outcomes/Goals: gradual wt gain Plan discussed with: Patient, Other CC Plasma Assessment Blood Product Administration S: [id number] RAÚL STEEL NP May 17, 2025 15:59
[2025-05-17] MEDS: ENOXAPARIN SOD 30 MG/0.3 ML SYRINGE SC ONE (21:01)
[2025-05-18] VITALS (16 sets, daily range): BP systolic 129–188; BP diastolic 78–104; PULSE 75–88; RESP 14–22; TEMP 97–98.1; O2SAT 95–100
[2025-05-18 06:36] LABS: Anion Gap 13.0 (5-15); Carbon Dioxide 22.0 mmol/L (20-31); Chloride 99.0 mmol/L (98-107); Potassium 3.7 mmol/L (3.5-5.1)
[2025-05-18 06:42] LABS: BUN/Creatinine Ratio 32.4 (10.0-20.0); Glucose 76.0 mg/dL (74-106)
[2025-05-18 06:43] LABS: Magnesium 1.7 mg/dL (1.6-2.6)
[2025-05-18 06:51] LABS: Albumin 2.3 g/dL (3.2-4.8); Calcium 6.8 mg/dL (8.7-10.4); Sodium 134.0 mmol/L (136-145)
[2025-05-18 06:53] LABS: Blood Urea Nitrogen 109.0 mg/dL (9-23)
--- NOTE | 2025-05-18 07:02 | DVHPN2 ---
Progress Note - Dictate Date Seen: May 18, 2025 Medical Necessity Reason Pt with a Central, PICC or Fol: No vital signs Vital Sign Date Time Temp Pulse Resp B/P (MAP) Pulse Ox O2 Delivery O2 Flow Rate FiO2 05/18/25 06:24 75 16 99 05/18/25 06:17 Room Air 0.0 05/18/25 06:17 21 05/18/25 04:57 98.1 137/92 (107) 98.1 Total Intake and Output 05/17/25 05/17/25 05/18/25 15:00 23:00 07:00 Intake Total 50 ml 0 ml 0 ml Output Total 350 ml 450 ml Balance 50 ml -350 ml -450 ml medications Current Medications Medications Dose Ordered Sig/Wai Route Start Time Stop Time Status Last Admin Dose Admin Nitroglycerin 0.4 mg Q5MINP PRN SL 05/09/25 23:15 Morphine Sulfate 2 mg Q30M PRN IV 05/09/25 23:15 Albuterol 2.5 mg Q6HR NEB 05/10/25 00:00 05/18/25 06:15 2.5 MG Acetylcysteine 200 mg Q6HR NEB 05/10/25 00:00 05/18/25 06:16 200 MG Vancomycin HCl 0 ml @ 0 mls/hr UD IV 05/09/25 23:15 Cancel Pantoprazole Sodium 40 mg DAILY IV 05/10/25 10:00 05/17/25 09:49 40 MG Morphine Sulfate 1 mg Q6HP PRN IV 05/10/25 05:15 05/13/25 03:05 1 MG Meropenem 50 ml @ 17 mls/hr Q12HR IV 05/10/25 22:00 05/17/25 21:36 17 MLS/HR Aspirin 81 mg DAILY PO 05/11/25 10:00 Hydralazine HCl 10 mg Q6HP PRN IV 05/12/25 06:30 05/17/25 22:50 10 MG Ceftriaxone Sodium 50 ml @ 100 mls/hr DAILY@09 IV 05/13/25 09:00 UNV Amino Acids 0 ml @ 0 mls/hr PER PHARMACY IV 05/13/25 16:45 Amino Acids/ Electrolytes/ Dextrose 1,000 ml @ 41 mls/hr DAILY@2200 IV 05/13/25 22:00 05/17/25 22:22 41 MLS/HR Diagnostic Test (Pha) 1 strip Q6HR 05/13/25 00:00 05/18/25 00:21 1 STRIP Insulin Human Regular FOLLOW SLIDING SCALE Q6HR SC 05/13/25 00:00 05/17/25 18:03 8 UNITS Dextrose 50 ml UD IV 05/13/25 00:00 Mupirocin 1 applic BID TOP 05/14/25 22:00 05/17/25 21:33 1 APPLIC Linezolid 300 ml @ 150 mls/hr Q12HR IV 05/15/25 22:00 UNV Sodium Bicarbonate 100 ml/Dextrose 1,100 ml @ 100 mls/hr Q11H IV 05/16/25 11:00 05/17/25 20:23 100 MLS/HR Doxycycline Hyclate 100 ml @ 50 mls/hr Q12H IV 05/16/25 17:00 05/23/25 23:59 05/18/25 06:10 50 MLS/HR laboratory and microbiology Laboratory Tests 05/18/25 05:59 05/16/25 04:54 Test 05/18/25 05:59 Range/Units Serum Glucose 76 74-106 mg/dL Assessment/Plan Patient is a 44-year-old gentleman who presented with altered mental status/shortness of breath. He is at baseline poor historian. Information was obtained by reviewing the chart and communicating with staff. It seems that since arrival the patient was found to have severe sepsis and multiorgan dysfunction. He has been on supplemental oxygen. 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 Reportedly on arrival to Emergency room blood pressure was low on later improved. Cardiology is involved for cardiac aspects of care. There is no report of chest pain. Lying flat in bed. No JVD. Mucosa is pink and wet. Scattered rhonchi in the lungs is heard. Cardiac: Regular, tachycardic, no thrill. Systolic murmur 2/6 in apex is heard. Abdomen is soft. There is no gross mass. There is no hepatomegaly. Extremities do not reveal edema. Dorsalis pedis is 2+ bilateral Past medical history reportedly includes old history of CVA with poor functional capacity, CKD, hypertension, hyperlipidemia, diabetes mellitus, repeated history of sepsis, history of urethral stricture and recurrent UTI, history of phimosis anemia and bed-bound at baseline. There was question if the patient has baseline history of diastolic heart failure Echocardiogram of December 2024 revealed ejection fraction of 64%, trace MR/TR and right ventricular systolic pressure of 34 mm Hg. WBC: 26.7 - 20.8 - 29.9 - 29.4 - 28.9 - 21.8 - 18.4 - 16.0 Hemoglobin: 5.9 - 6.8 - 7.8 - 9.0 - 9.5 - 8.5 - 8.4 - 8.7 BNP: 528.66 Creatinine: 5.69 - 5.7 - 4.72 - 4.86 - 4.67 - 4.73 - 4.70 - 4.77 - 4.84 - 4.51 - 4.46 - 4.03 - 4.03 - 3.88 - 3.69 - 3.36 Potassium: 8.0 - 7.6 - 5.8 - 5.8 - 5.0 - 5.0 - 5.0 - 4.9 - 4.4 - 3.9 - 3.2 - 3.2 - 3.4 - 4.0 - 3.7 Sodium: 147 - 146 - 153 - 154 - 157 - 155 - 154 - 152 - 150 - 150 - 147 - 147 - 143 - 140 - 134 AST/ALT: 96/66 - 468/478 - 257/349 - 15/118 - 11/ - 10/42 Troponin (high sensitive): 81 - 89 - 92 Chest x-ray reported: IMPRESSION: Findings suggest a mild degree of pulmonary edema which is decreased compared to the prior study on 01/11/2025. Pneumonia is considered less likely Repeat chest xry revealed: IMPRESSION: 1. No interval change. Repeat chest xry revealed: 1. Increase in patchy and confluent bilateral airspace opacities which could reflect worsening multifocal pneumonia and/or pulmonary edema. 2. Probable bilateral pleural effusions, greater on the left. Renal ultrasound reported: IMPRESSION: Bilateral medical renal disease. EKG revealed sinus tachycardia Tele shows sinus tachycardia Echocardiogram revealed: Left ventricle: Mild diffuse hypokinesis of left ventricle was seen. LVEF was around 50%. Right ventricle was normal size with mildly reduced systolic function. Both atria were normal size. Aortic valve was trileaflet. There was no aortic insufficiency/stenosis. There was mild mitral/tricuspid regurgitation. There was no pulmonary valve insufficiency. Right ventricular systolic pressure was assessed at 35 mm Hg. There was trace pericardial effusion. Patient is a 44-year-old gentleman who was at baseline bed-bound with old history of CVA who presented with altered mental status and shortness of breath. Presentation is in favor acute respiratory failure secondary to sepsis. Multiorgan failure secondary to sepsis is considered. Minimal increase in troponin is considered to reflect demand ischemia in a patient with questionable history of diastolic heart failure. In December 2024 ejection fraction in echocardiogram was 64% with no specific increase in right ventricular systolic pressure. Acute respiratory failure Sepsis Encephalopathy, metabolic versus toxic LISANDRO on CKD ATN Demand ischemia Hypernatremia Hypokalemia Anemia Cardiac suggestion for management: Manage in tele Fluid resuscitation as per Nephrology Follow-up electrolytes and kidney function tests and correct abnormalities Aspirin: 81 mg daily with old history of CVA is suggested DVT prophylaxis as per primary team Has failed swallowing evaluation Control hypertension Management of sepsis/infection as per primary team Pulmonary follow-up Nephrology follow up Recognizing co-morbidities, prognosis is poor Further evaluation and management depends on the above and clinical course A total of 55 minutes was spent reviewing the patient record, examining the patient, making a diagnostic and therapeutic plan, discussing this plan with medical personnel, following up on diagnostic studies and following the patient for clinical stability excluding any and all procedures. At least 50% of this time was spent in direct, [id number] contact. Thank you for allowing me to participate in this patient's care. Further recommendations will depend on patient's clinical course. Please do not hesitate to contact me if you have any questions or concerns. This medical document was created using electronic medical record system with [employer] computerized dictation system. Although this document has been carefully reviewed, there may still be some phonetic and typographical errors. These areas are purely typographical due to the imperfection of the software programs, and do not reflect any compromise in the patient's medical care. Dietary Evaluation Review Comments: 1. TPN per pharmacy to meet Pt's daily needs at 48g Protein 1000kcal, when Tube feeding is not feasible. 2. Nepro@25 ml/hr, providing 49g proteinm 1062 [id number] free water, once NG feeding becomes feasible, Start at 10ml/hr and increase 10ml Q6hr till reach the goal rate. 3. Renal standard CCHO-60 once pt can tolerate PO feedings Expected Outcomes/Goals: gradual wt gain Plan discussed with: Other (nurse) CC Plasma Assessment Blood Product Administration S: [id number] FAN HAMEED MD May 18, 2025 07:02
[2025-05-18] MEDS: SODIUM BICARB 50mEq/50ml Vial 75 ML in SOD CHL 0.45% 1,000 ML IV SCH ×2 (09:15→14:00)
[2025-05-18] MEDS: MAGNESIUM SULFATE 1GM/100ML 100 ML IV SCH (10:46)
--- NOTE | 2025-05-18 11:31 | DVHPN2 ---
Progress Note Date Seen: May 18, 2025 Medical Necessity Reason Pt with a Central, PICC or Fol: No Subjective Patient reports: No new complaints Other Systems: Patient seen and examined by myself today in follow-up Objective vital signs Vital Sign Date Time Temp Pulse Resp B/P (MAP) Pulse Ox O2 Delivery O2 Flow Rate FiO2 05/18/25 10:54 84 129/88 (102) 05/18/25 09:00 98.1 16 96 98.1 05/18/25 06:17 Room Air 0.0 05/18/25 06:17 21 Total Intake and Output 05/17/25 05/17/25 05/18/25 15:00 23:00 07:00 Intake Total 50 ml 0 ml 0 ml Output Total 350 ml 800 ml Balance 50 ml -350 ml -800 ml medications Current Medications Medications Dose Ordered Sig/Wai Route Start Time Stop Time Status Last Admin Dose Admin Nitroglycerin 0.4 mg Q5MINP PRN SL 05/09/25 23:15 Morphine Sulfate 2 mg Q30M PRN IV 05/09/25 23:15 Albuterol 2.5 mg Q6HR NEB 05/10/25 00:00 05/18/25 06:15 2.5 MG Acetylcysteine 200 mg Q6HR NEB 05/10/25 00:00 05/18/25 06:16 200 MG Vancomycin HCl 0 ml @ 0 mls/hr UD IV 05/09/25 23:15 Cancel Pantoprazole Sodium 40 mg DAILY IV 05/10/25 10:00 05/18/25 10:47 40 MG Morphine Sulfate 1 mg Q6HP PRN IV 05/10/25 05:15 05/13/25 03:05 1 MG Meropenem 50 ml @ 17 mls/hr Q12HR IV 05/10/25 22:00 05/18/25 10:47 17 MLS/HR Aspirin 81 mg DAILY PO 05/11/25 10:00 Hydralazine HCl 10 mg Q6HP PRN IV 05/12/25 06:30 05/17/25 22:50 10 MG Ceftriaxone Sodium 50 ml @ 100 mls/hr DAILY@09 IV 05/13/25 09:00 UNV Amino Acids 0 ml @ 0 mls/hr PER PHARMACY IV 05/13/25 16:45 Amino Acids/ Electrolytes/ Dextrose 1,000 ml @ 41 mls/hr DAILY@2200 IV 05/13/25 22:00 05/17/25 22:22 41 MLS/HR Diagnostic Test (Pha) 1 strip Q6HR 05/13/25 00:00 05/18/25 06:00 1 STRIP Insulin Human Regular FOLLOW SLIDING SCALE Q6HR SC 05/13/25 00:00 05/17/25 18:03 8 UNITS Dextrose 50 ml UD IV 05/13/25 00:00 Mupirocin 1 applic BID TOP 05/14/25 22:00 05/18/25 10:00 1 APPLIC Linezolid 300 ml @ 150 mls/hr Q12HR IV 05/15/25 22:00 UNV Doxycycline Hyclate 100 ml @ 50 mls/hr Q12H IV 05/16/25 17:00 05/23/25 23:59 05/18/25 06:10 50 MLS/HR Magnesium Sulfate/ Dextrose 100 ml @ 100 mls/hr Q1HR IV 05/18/25 10:00 05/18/25 11:59 05/18/25 10:46 100 MLS/HR Sodium Bicarbonate 75 ml/ Sodium Chloride 1,075 ml @ 100 mls/hr [id number] IV 05/18/25 09:15 05/18/25 09:15 100 MLS/HR Examination: LUNGS:Normal, CVS:Normal, MSK:Abnormal laboratory and microbiology Laboratory Tests 05/18/25 05:59 05/16/25 04:54 Test 05/18/25 05:59 Range/Units Serum Glucose 76 74-106 mg/dL Microbiology Date/Time Source Procedure Growth Status 05/11/25 23:45 Voided Urine Urine Culture - Final Yeast, not Diana albicans Complete 05/10/25 02:49 Nose MRSA Screen - Final Methicillin Resistant S.aureus Complete 05/09/25 19:30 Blood Blood Culture - Final NO GROWTH AFTER 5 DAYS OF INCUBATION. Complete Problem List/Assessment/Plan Problem List/Assessment/Plan Acute kidney injury likely acute tubular necrosis in the setting of severe sepsis Severe sepsis Metabolic acidosis Encephalopathy Hypernatremia Hypokalemia Hypocalcemia Hypomagnesemia Hyperphosphatemia CVA Bed-bound Chronic Lindsay for greater than one year Multiple admissions in the past one year Previously on hospice before coming here Recommendations Kidney function slightly improving Increased urine output Strict I&Os Change IV fluid to 1/2 NS with sodium biacrb 75 mEq/L at 100 cc/hour Magnesium sulfate IV piggyback KCL replacement Check PTH and 25 hydroxyvitamin Patient failed swallow eval Discussed in detail with mother who is bedside recommended patient might need dialysis for solute clearance however patient's mother mentioned she does not want dialysis for the patient as he has been sick for the last one year and very weak and patient used to be on hospice before coming here Continue supportive care Plan discussed with: Other (Mother, nurse) My Orders My Orders Orders - CARLA NETTLES MD Procedure Category Date Status Time Magnesium Sulfate PHA 05/18/25 In Process 1gm/100ml 10:00 Sod Chl 0.45% PHA 05/18/25 In Process (Sodi... W/Sodium 09:15 Dietary Evaluation Review Comments: 1. TPN per pharmacy to meet Pt's daily needs at 48g Protein 1000kcal, when Tube feeding is not feasible. 2. Nepro@25 ml/hr, providing 49g proteinm 1062 [id number] free water, once NG feeding becomes feasible, Start at 10ml/hr and increase 10ml Q6hr till reach the goal rate. 3. Renal standard CCHO-60 once pt can tolerate PO feedings Expected Outcomes/Goals: gradual wt gain CC Plasma Assessment Blood Product Administration S: [id number] CARLA NETTLES MD May 18, 2025 11:31
--- NOTE | 2025-05-18 13:53 | DVHPN2 ---
Progress Note - Dictate Date Seen: May 18, 2025 Medical Necessity Reason Pt with a Central, PICC or Fol: No vital signs Vital Sign Date Time Temp Pulse Resp B/P (MAP) Pulse Ox O2 Delivery O2 Flow Rate FiO2 05/18/25 13:00 97.6 82 16 129/83 (98) 99 97.6 05/18/25 11:32 Room Air* 0 21 Total Intake and Output 05/17/25 05/17/25 05/18/25 15:00 23:00 07:00 Intake Total 50 ml 0 ml 0 ml Output Total 350 ml 800 ml Balance 50 ml -350 ml -800 ml medications Current Medications Medications Dose Ordered Sig/Wai Route Start Time Stop Time Status Last Admin Dose Admin Nitroglycerin 0.4 mg Q5MINP PRN SL 05/09/25 23:15 Morphine Sulfate 2 mg Q30M PRN IV 05/09/25 23:15 Albuterol 2.5 mg Q6HR NEB 05/10/25 00:00 05/18/25 11:35 2.5 MG Acetylcysteine 200 mg Q6HR NEB 05/10/25 00:00 05/18/25 11:35 200 MG Vancomycin HCl 0 ml @ 0 mls/hr UD IV 05/09/25 23:15 Cancel Pantoprazole Sodium 40 mg DAILY IV 05/10/25 10:00 05/18/25 10:47 40 MG Morphine Sulfate 1 mg Q6HP PRN IV 05/10/25 05:15 05/13/25 03:05 1 MG Meropenem 50 ml @ 17 mls/hr Q12HR IV 05/10/25 22:00 05/18/25 10:47 17 MLS/HR Aspirin 81 mg DAILY PO 05/11/25 10:00 Hydralazine HCl 10 mg Q6HP PRN IV 05/12/25 06:30 05/17/25 22:50 10 MG Ceftriaxone Sodium 50 ml @ 100 mls/hr DAILY@09 IV 05/13/25 09:00 UNV Amino Acids 0 ml @ 0 mls/hr PER PHARMACY IV 05/13/25 16:45 Amino Acids/ Electrolytes/ Dextrose 1,000 ml @ 41 mls/hr DAILY@2200 IV 05/13/25 22:00 05/17/25 22:22 41 MLS/HR Diagnostic Test (Pha) 1 strip Q6HR 05/13/25 00:00 05/18/25 12:14 1 STRIP Insulin Human Regular FOLLOW SLIDING SCALE Q6HR SC 05/13/25 00:00 05/17/25 18:03 8 UNITS Dextrose 50 ml UD IV 05/13/25 00:00 Mupirocin 1 applic BID TOP 05/14/25 22:00 05/18/25 10:00 1 APPLIC Linezolid 300 ml @ 150 mls/hr Q12HR IV 05/15/25 22:00 UNV Doxycycline Hyclate 100 ml @ 50 mls/hr Q12H IV 05/16/25 17:00 05/23/25 23:59 05/18/25 06:10 50 MLS/HR Sodium Bicarbonate 75 ml/ Sodium Chloride 1,075 ml @ 100 mls/hr [id number] IV 05/18/25 09:15 05/18/25 09:15 100 MLS/HR objective General Appearance: alert, no distress HEENT: EOMI, PERRLA, normal external inspect of ears, no icterus, no nasal drainage Neck: no carotid bruit, no jugular venous distention (JVD), no lymphadenopathy Chest: normal thorax Respiratory: clear to auscultation, normal air movement Cardiovascular: regular rate and rhythm, no diastolic murmur, no jugular venous distention (JVD), no rub, no systolic murmur Abdominal: soft, no hepatomegaly, no mass, no splenomegaly, no tenderness Genitourinary: grossly normal external Musculoskeletal: no joint tenderness, no swelling Extremities: normal pulses, no calf tenderness, no clubbing, no cyanosis, no edema Skin: no bruising, no jaundice, no rash Neurological: alert, No focal deficit laboratory and microbiology Laboratory Tests 05/18/25 05:59 05/16/25 04:54 Test 05/18/25 05:59 Range/Units Serum Glucose 76 74-106 mg/dL Problem List 1. Sepsis IV Abx 2. Acute on chronic anemia Medications, Monitoring 3. LISANDRO with CKD 3b Nephrology consult 4. Bed bound Monitoring 5. CVA with residual deficits Monitoring 6. NSTEMI II, demand ischemia Cardiology consult, monitor EKG 7. MRSA w/ Nares Medications, Monitoring 8. Hyperkalemia r/t LISANDRO Hyperkalemia Tx 9. Hypoglycemia Medications, Monitoring Assessment/Plan Subjective: Patient is nonverbal at this time. Objective: Patient was admitted for acute on chronic kidney disease. Patient has minimal urine output. Patient is a DNR. Patient has some mild leukocytosis. Repeat CBC is pending. According to social service assistant, mother does not want patient home until WBC count is more normalized. She does not want hemodialysis. Plan: Repeat labs pending. Discharge plan back to hospice services. Dietary Evaluation Review Comments: 1. TPN per pharmacy to meet Pt's daily needs at 48g Protein 1000kcal, when Tube feeding is not feasible. 2. Nepro@25 ml/hr, providing 49g proteinm 1062 [id number] free water, once NG feeding becomes feasible, Start at 10ml/hr and increase 10ml Q6hr till reach the goal rate. 3. Renal standard CCHO-60 once pt can tolerate PO feedings Expected Outcomes/Goals: gradual wt gain Plan discussed with: Patient, Other CC Plasma Assessment Blood Product Administration S: [id number] RAÚL STEEL NP May 18, 2025 13:53
[2025-05-18 14:05] LABS: Chloride 101 mmol/L (98-107); Hematocrit 27.0 % (41.0-53.0); Hemoglobin 8.9 g/dL (13.5-17.5); Mean Corpuscular Hemoglobin 29.2 pg (28.0-32.0); Mean Corpuscular Volume 88.8 fL (80.0-100.0); Nucleated Red Blood Cells % 0.2 %; Potassium 3.8 mmol/L (3.5-5.1)
[2025-05-18 14:06] LABS: Anion Gap 12 (5-15); Carbon Dioxide 22 mmol/L (20-31)
[2025-05-18 14:11] LABS: BUN/Creatinine Ratio 31.0 (10.0-20.0); Calcium 7.5 mg/dL (8.7-10.4); Glucose 89 mg/dL (74-106); Sodium 135 mmol/L (136-145)
[2025-05-18 14:14] LABS: Blood Urea Nitrogen 102 mg/dL (9-23)
[2025-05-18] MEDS: FUROSEMIDE 40 MG/4 ML VIAL IV ONE (17:04)
[2025-05-18] MEDS: ACETYLCYSTEINE 10 %(100MG/ML) SOL 4ML NEB SCH (19:07)
[2025-05-18] MEDS: ALBUTEROL SULF 2.5 MG/0.5ML(0.5%) NEB SOLN NEB SCH (19:07)
--- NOTE | 2025-05-18 19:25 | DVHPNRES ---
Progress Note Date Seen: May 18, 2025 Resident Creating Document: EYAL HI Medical Necessity Reason Pt with a Central, PICC or Fol: No Medical Necessity Reason Patient seen and examine with the nurse. lying in bed. Sleeping peaceful. No much change from before. Patient was admitted for acute on chronic kidney disease. Patient has minimal urine output. Patient is a DNR. Patient has some mild leukocytosis. According to the nurse, mother now wants Dialysis. Not sure what she really wants will the primary team. Subjective Review of Systems Unable to access. Objective vital signs Vital Sign Date Time Temp Pulse Resp B/P (MAP) Pulse Ox O2 Delivery O2 Flow Rate FiO2 05/18/25 19:14 82 18 100 05/18/25 19:08 Room Air* 0 21 05/18/25 17:04 133/78 05/18/25 16:33 97.5 97.5 Total Intake and Output 05/17/25 05/17/25 05/18/25 15:00 23:00 07:00 Intake Total 50 ml 0 ml 0 ml Output Total 350 ml 800 ml Balance 50 ml -350 ml -800 ml medications Current Medications Medications Dose Ordered Sig/Wai Route Start Time Stop Time Status Last Admin Dose Admin Nitroglycerin 0.4 mg Q5MINP PRN SL 05/09/25 23:15 Morphine Sulfate 2 mg Q30M PRN IV 05/09/25 23:15 Vancomycin HCl 0 ml @ 0 mls/hr UD IV 05/09/25 23:15 Cancel Pantoprazole Sodium 40 mg DAILY IV 05/10/25 10:00 05/18/25 10:47 40 MG Morphine Sulfate 1 mg Q6HP PRN IV 05/10/25 05:15 05/13/25 03:05 1 MG Meropenem 50 ml @ 17 mls/hr Q12HR IV 05/10/25 22:00 05/18/25 10:47 17 MLS/HR Aspirin 81 mg DAILY PO 05/11/25 10:00 Hydralazine HCl 10 mg Q6HP PRN IV 05/12/25 06:30 05/17/25 22:50 10 MG Ceftriaxone Sodium 50 ml @ 100 mls/hr DAILY@09 IV 05/13/25 09:00 UNV Amino Acids 0 ml @ 0 mls/hr PER PHARMACY IV 05/13/25 16:45 Amino Acids/ Electrolytes/ Dextrose 1,000 ml @ 41 mls/hr DAILY@2200 IV 05/13/25 22:00 05/17/25 22:22 41 MLS/HR Diagnostic Test (Pha) 1 strip Q6HR 05/13/25 00:00 05/18/25 16:40 1 STRIP Insulin Human Regular FOLLOW SLIDING SCALE Q6HR SC 05/13/25 00:00 05/17/25 18:03 8 UNITS Dextrose 50 ml UD IV 05/13/25 00:00 Mupirocin 1 applic BID TOP 05/14/25 22:00 05/18/25 10:00 1 APPLIC Linezolid 300 ml @ 150 mls/hr Q12HR IV 05/15/25 22:00 UNV Doxycycline Hyclate 100 ml @ 50 mls/hr Q12H IV 05/16/25 17:00 05/23/25 23:59 05/18/25 17:04 50 MLS/HR Sodium Bicarbonate 75 ml/ Sodium Chloride 1,075 ml @ 50 mls/hr [id number] IV 05/18/25 14:00 Albuterol 2.5 mg Q6HR NEB 05/18/25 14:00 05/18/25 19:07 2.5 MG Acetylcysteine 100 mg Q6HR NEB 05/18/25 14:00 05/18/25 19:07 100 MG Examination General Appearance: awake, confused. Cachectic HEENT: conjunctival pallor seen, no icterus, no cyanosis, Respiratory: Clear to auscultation, Normal air movement on ROOM AIR Cardiovascular: Regular rate, Normal S1, Normal S2, No murmurs, no chest wall tenderness Abdominal: NO distention, no tenderness, bowel sounds present, no scars noted Extremities: muscle wasting Skin: Dry; No rashes, No breakdown, No significant lesion Neuro: bed-bound Psych/Mental Status: nonverbal laboratory and microbiology Laboratory Tests 05/18/25 13:06 Test 05/18/25 13:06 Range/Units Serum Glucose 89 74-106 mg/dL Microbiology Date/Time Source Procedure Growth Status 05/11/25 23:45 Voided Urine Urine Culture - Final Yeast, not Diana albicans Complete 05/10/25 02:49 Nose MRSA Screen - Final Methicillin Resistant S.aureus Complete 05/09/25 19:30 Blood Blood Culture - Final NO GROWTH AFTER 5 DAYS OF INCUBATION. Complete Problem List/Assessment/Plan Problem List/Assessment/Plan Assessment/Plan Neuro: Acute metabolic encephalopathy likely due to sepsis, uremia H/o CVA - IV antibiotics,See below - IV fluids Cardiovascular NSTEMI likely type 2 due to demand ischemia - echo from December 2024 shows LVEF 64% Respiratory Acute hypoxemic respiratory failure, POA - CXR: Findings suggest a mild degree of pulmonary edema which is decreased compared to the prior study on 01/11/2025. Pneumonia is considered less likely. - 2L of oxygen - AB- ABG to be obtained, VBG shows metabolic acidosis with a base excess of - 24.9 - 100 mEq of sodium bicarb - No more ABG - stable for discharge Genitourinary LISANDRO on CKD stage 3 likely due VMN vs ATN, renal function improving CKD stage 3 Chronic Lindsay for greater than one year Nephrology on board: recommended dialysis in the next 24 hours if renal function do not improve. however patient's mother mentioned she does not want dialysis for the patient as he has been sick for the last one year and very weak We will recommend conservative management for now Infectious Disease: Severe sepsis likely due to pneumonia, UTI Pneumonia likely due to Gram +/- bacteria, possible aspiration Indwelling Lindsay's catheter long-term, UTI - broad-spectrum IV antibiotics vancomycin and meropenem, fluconazole - aggressive fluid replacement - change Lindsay catheter - Urine culture: yeast, Gram negative rods - blood cultures pending -- duo nebs q.6 hours, acetylcysteine q.6 hours --> Meropenem and vancomycin, add fluconazole Metabolic Hyperkalemia Hypernatremia Hypocalcemia Anion gap metabolic acidosis likely due to uremia - IV fluids; IVF D5W with two amps sodium bicarb at 100 cc/hour - Lasix IV ( not used aggressively because patient was septic low blood pressure) - hyperkalemia treatment protocols given - ABG to be obtained, VBG shows metabolic acidosis with a base excess of -24.9 - 100 mEq of sodium bicarb- Stopped Endocrine Hyperglycemia with a history of diabetes mellitus Probable starvation ketosis Severe protein calorie malnutrition Cachexia - currently patient NPO - mild ISS - D5 half NS IV fluid Hematology: Microcytic normochromic anemia Severe anemia - 1 unit of PRBC transfused 1x - Daily CBC, if less than 7 transfuse another PRBC PUD prophylaxis: Protonix DVT prophylaxis: Currently held because of low hemoglobin, SCD Plan: Stable for discharge from pulmonology stand point Disposition: Telemetry Plan: Previously on hospice before coming here. To send him back to Hospice. Goals of care discussed for more than 25 minutes, Code status: Full Case discussed with with the patient's primary RN and Dr. Jacobs Plan discussed with: Other (Nurse) Dietary Evaluation Review Comments: 1. TPN per pharmacy to meet Pt's daily needs at 48g Protein 1000kcal, when Tube feeding is not feasible. 2. Nepro@25 ml/hr, providing 49g proteinm 1062 [id number] free water, once NG feeding becomes feasible, Start at 10ml/hr and increase 10ml Q6hr till reach the goal rate. 3. Renal standard CCHO-60 once pt can tolerate PO feedings Expected Outcomes/Goals: gradual wt gain CC Plasma Assessment Blood Product Administration S: [id number] Date of Service: May 18, 2025 Billing Provider: SYD JACOBS MD Common Visit Codes: NOT BILLABLE EYAL HI RESIDENT May 18, 2025 19:25 SYD JACOBS MD May 24, 2025 18:03
[2025-05-19] VITALS (17 sets, daily range): BP systolic 133–182; BP diastolic 80–99; PULSE 71–98; RESP 17–22; TEMP 96.9–98.6; O2SAT 91–100
--- NOTE | 2025-05-19 05:57 | DVHPN2 ---
Progress Note - Dictate Date Seen: May 19, 2025 Medical Necessity Reason Pt with a Central, PICC or Fol: No vital signs Vital Sign Date Time Temp Pulse Resp B/P (MAP) Pulse Ox O2 Delivery O2 Flow Rate FiO2 05/19/25 05:00 97.6 85 22 137/91 (106) 98 97.6 05/19/25 01:20 0.0 21 05/19/25 00:17 Room Air Total Intake and Output 05/18/25 05/18/25 05/19/25 15:00 23:00 07:00 Intake Total 250 ml 946 ml Output Total 375 ml 725 ml Balance 250 ml 571 ml -725 ml medications Current Medications Medications Dose Ordered Sig/Wai Route Start Time Stop Time Status Last Admin Dose Admin Nitroglycerin 0.4 mg Q5MINP PRN SL 05/09/25 23:15 Vancomycin HCl 0 ml @ 0 mls/hr UD IV 05/09/25 23:15 Cancel Pantoprazole Sodium 40 mg DAILY IV 05/10/25 10:00 05/18/25 10:47 40 MG Morphine Sulfate 1 mg Q6HP PRN IV 05/10/25 05:15 05/13/25 03:05 1 MG Meropenem 50 ml @ 17 mls/hr Q12HR IV 05/10/25 22:00 05/18/25 22:34 17 MLS/HR Aspirin 81 mg DAILY PO 05/11/25 10:00 Hydralazine HCl 10 mg Q6HP PRN IV 05/12/25 06:30 05/17/25 22:50 10 MG Ceftriaxone Sodium 50 ml @ 100 mls/hr DAILY@09 IV 05/13/25 09:00 UNV Amino Acids 0 ml @ 0 mls/hr PER PHARMACY IV 05/13/25 16:45 Amino Acids/ Electrolytes/ Dextrose 1,000 ml @ 41 mls/hr DAILY@2200 IV 05/13/25 22:00 05/18/25 22:36 41 MLS/HR Diagnostic Test (Pha) 1 strip Q6HR 05/13/25 00:00 05/19/25 00:00 1 STRIP Insulin Human Regular FOLLOW SLIDING SCALE Q6HR SC 05/13/25 00:00 05/17/25 18:03 8 UNITS Dextrose 50 ml UD IV 05/13/25 00:00 Mupirocin 1 applic BID TOP 05/14/25 22:00 05/18/25 22:34 1 APPLIC Linezolid 300 ml @ 150 mls/hr Q12HR IV 05/15/25 22:00 UNV Doxycycline Hyclate 100 ml @ 50 mls/hr Q12H IV 05/16/25 17:00 05/23/25 23:59 05/19/25 04:40 50 MLS/HR Sodium Bicarbonate 75 ml/ Sodium Chloride 1,075 ml @ 50 mls/hr [id number] IV 05/18/25 14:00 Albuterol 2.5 mg Q6HR NEB 05/18/25 14:00 05/19/25 00:17 2.5 MG Acetylcysteine 100 mg Q6HR NEB 05/18/25 14:00 05/19/25 00:17 100 MG laboratory and microbiology Laboratory Tests 05/18/25 13:06 Test 05/18/25 13:06 Range/Units Serum Glucose 89 74-106 mg/dL Assessment/Plan Patient is a 44-year-old gentleman who presented with altered mental status/shortness of breath. He is at baseline poor historian. Information was obtained by reviewing the chart and communicating with staff. It seems that since arrival the patient was found to have severe sepsis and multiorgan dysfunction. He has been on supplemental oxygen. 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 Reportedly on arrival to Emergency room blood pressure was low on later improved. Cardiology is involved for cardiac aspects of care. There is no report of chest pain. Lying flat in bed. No JVD. Mucosa is pink and wet. Scattered rhonchi in the lungs is heard. Cardiac: Regular, tachycardic, no thrill. Systolic murmur 2/6 in apex is heard. Abdomen is soft. There is no gross mass. There is no hepatomegaly. Extremities do not reveal edema. Dorsalis pedis is 2+ bilateral Past medical history reportedly includes old history of CVA with poor functional capacity, CKD, hypertension, hyperlipidemia, diabetes mellitus, repeated history of sepsis, history of urethral stricture and recurrent UTI, history of phimosis anemia and bed-bound at baseline. There was question if the patient has baseline history of diastolic heart failure Echocardiogram of December 2024 revealed ejection fraction of 64%, trace MR/TR and right ventricular systolic pressure of 34 mm Hg. WBC: 26.7 - 20.8 - 29.9 - 29.4 - 28.9 - 21.8 - 18.4 - 16.0 - 13.0 Hemoglobin: 5.9 - 6.8 - 7.8 - 9.0 - 9.5 - 8.5 - 8.4 - 8.7 - 8.9 BNP: 528.66 - 280.34 Creatinine: 5.69 - 5.7 - 4.72 - 4.86 - 4.67 - 4.73 - 4.70 - 4.77 - 4.84 - 4.51 - 4.46 - 4.03 - 4.03 - 3.88 - 3.69 - 3.36 - 3.29 Potassium: 8.0 - 7.6 - 5.8 - 5.8 - 5.0 - 5.0 - 5.0 - 4.9 - 4.4 - 3.9 - 3.2 - 3.2 - 3.4 - 4.0 - 3.7 - 3.8 Sodium: 147 - 146 - 153 - 154 - 157 - 155 - 154 - 152 - 150 - 150 - 147 - 147 - 143 - 140 - 134 - 135 AST/ALT: 96/66 - 468/478 - 257/349 - 15/118 - 11/67 - 10/42 Troponin (high sensitive): 81 - 89 - 92 Chest x-ray reported: IMPRESSION: Findings suggest a mild degree of pulmonary edema which is decreased compared to the prior study on 01/11/2025. Pneumonia is considered less likely Repeat chest xry revealed: IMPRESSION: 1. No interval change. Repeat chest xry revealed: 1. Increase in patchy and confluent bilateral airspace opacities which could reflect worsening multifocal pneumonia and/or pulmonary edema. 2. Probable bilateral pleural effusions, greater on the left. Renal ultrasound reported: IMPRESSION: Bilateral medical renal disease. EKG revealed sinus tachycardia Tele shows sinus tachycardia Echocardiogram revealed: Left ventricle: Mild diffuse hypokinesis of left ventricle was seen. LVEF was around 50%. Right ventricle was normal size with mildly reduced systolic function. Both atria were normal size. Aortic valve was trileaflet. There was no aortic insufficiency/stenosis. There was mild mitral/tricuspid regurgitation. There was no pulmonary valve insufficiency. Right ventricular systolic pressure was assessed at 35 mm Hg. There was trace pericardial effusion. Patient is a 44-year-old gentleman who was at baseline bed-bound with old history of CVA who presented with altered mental status and shortness of breath. Presentation is in favor acute respiratory failure secondary to sepsis. Multiorgan failure secondary to sepsis is considered. Minimal increase in troponin is considered to reflect demand ischemia in a patient with questionable history of diastolic heart failure. In December 2024 ejection fraction in echocardiogram was 64% with no specific increase in right ventricular systolic pressure. Acute respiratory failure Sepsis Encephalopathy, metabolic versus toxic LISANDRO on CKD ATN Demand ischemia Hypernatremia Hypokalemia Anemia Cardiac suggestion for management: Manage in tele Fluid resuscitation as per Nephrology Follow-up electrolytes and kidney function tests and correct abnormalities Aspirin: 81 mg daily with old history of CVA is suggested DVT prophylaxis as per primary team Has failed swallowing evaluation Control hypertension Management of sepsis/infection as per primary team Pulmonary follow-up Nephrology follow up Recognizing co-morbidities, prognosis is poor Further evaluation and management depends on the above and clinical course A total of 55 minutes was spent reviewing the patient record, examining the patient, making a diagnostic and therapeutic plan, discussing this plan with medical personnel, following up on diagnostic studies and following the patient for clinical stability excluding any and all procedures. At least 50% of this time was spent in direct, [id number] contact. Thank you for allowing me to participate in this patient's care. Further recommendations will depend on patient's clinical course. Please do not hesitate to contact me if you have any questions or concerns. This medical document was created using electronic medical record system with [employer] computerized dictation system. Although this document has been carefully reviewed, there may still be some phonetic and typographical errors. These areas are purely typographical due to the imperfection of the software programs, and do not reflect any compromise in the patient's medical care. Dietary Evaluation Review Comments: 1. TPN per pharmacy to meet Pt's daily needs at 48g Protein 1000kcal, when Tube feeding is not feasible. 2. Nepro@25 ml/hr, providing 49g proteinm 1062 [id number] free water, once NG feeding becomes feasible, Start at 10ml/hr and increase 10ml Q6hr till reach the goal rate. 3. Renal standard CCHO-60 once pt can tolerate PO feedings Expected Outcomes/Goals: gradual wt gain Plan discussed with: Patient, Other (nurse) CC Plasma Assessment Blood Product Administration S: [id number] FAN HAMEED MD May 19, 2025 05:57
[2025-05-19 06:53] LABS: Alanine Aminotransferase 30 U/L (7-40); Alkaline Phosphatase 187 U/L (46-116); Anion Gap 15 (5-15); BUN/Creatinine Ratio 33.2 (10.0-20.0); Calcium 7.1 mg/dL (8.7-10.4); Carbon Dioxide 20 mmol/L (20-31); Chloride 99 mmol/L (98-107); Glucose 143 mg/dL (74-106); Magnesium 2.0 mg/dL (1.6-2.6); Potassium 3.5 mmol/L (3.5-5.1); Sodium 134 mmol/L (136-145)
[2025-05-19 06:54] LABS: Blood Urea Nitrogen 111 mg/dL (9-23)
[2025-05-19 06:55] LABS: Albumin 2.4 g/dL (3.2-4.8); Bilirubin, Total < 0.2 mg/dL (0.2-1.0); Total Protein 5.5 g/dL (5.7-8.2)
--- NOTE | 2025-05-19 12:20 | DVHPN2 ---
Progress Note Date Seen: May 19, 2025 Medical Necessity Reason Pt with a Central, PICC or Fol: No Subjective Patient reports: No new complaints Other Systems: Patient seen and examined by myself today, I discussed my plan of care with the mother at the bedside Objective vital signs Vital Sign Date Time Temp Pulse Resp B/P (MAP) Pulse Ox O2 Delivery O2 Flow Rate FiO2 05/19/25 11:34 85 18 99 05/19/25 11:28 Room Air 0.0 05/19/25 11:28 21 05/19/25 08:58 98.5 142/93 (109) 98.5 Total Intake and Output 05/18/25 05/18/25 05/19/25 15:00 23:00 07:00 Intake Total 250 ml 946 ml 478 ml Output Total 375 ml 725 ml Balance 250 ml 571 ml -247 ml medications Current Medications Medications Dose Ordered Sig/Wai Route Start Time Stop Time Status Last Admin Dose Admin Nitroglycerin 0.4 mg Q5MINP PRN SL 05/09/25 23:15 Vancomycin HCl 0 ml @ 0 mls/hr UD IV 05/09/25 23:15 Cancel Pantoprazole Sodium 40 mg DAILY IV 05/10/25 10:00 05/19/25 09:37 40 MG Meropenem 50 ml @ 17 mls/hr Q12HR IV 05/10/25 22:00 05/19/25 09:38 17 MLS/HR Aspirin 81 mg DAILY PO 05/11/25 10:00 Hydralazine HCl 10 mg Q6HP PRN IV 05/12/25 06:30 05/17/25 22:50 10 MG Ceftriaxone Sodium 50 ml @ 100 mls/hr DAILY@09 IV 05/13/25 09:00 UNV Amino Acids 0 ml @ 0 mls/hr PER PHARMACY IV 05/13/25 16:45 Amino Acids/ Electrolytes/ Dextrose 1,000 ml @ 41 mls/hr DAILY@2200 IV 05/13/25 22:00 05/18/25 22:36 41 MLS/HR Diagnostic Test (Pha) 1 strip Q6HR 05/13/25 00:00 05/19/25 11:40 1 STRIP Insulin Human Regular FOLLOW SLIDING SCALE Q6HR SC 05/13/25 00:00 05/19/25 05:58 4 UNITS Dextrose 50 ml UD IV 05/13/25 00:00 Mupirocin 1 applic BID TOP 05/14/25 22:00 05/19/25 09:38 1 APPLIC Linezolid 300 ml @ 150 mls/hr Q12HR IV 05/15/25 22:00 UNV Doxycycline Hyclate 100 ml @ 50 mls/hr Q12H IV 05/16/25 17:00 05/23/25 23:59 05/19/25 04:40 50 MLS/HR Sodium Bicarbonate 75 ml/ Sodium Chloride 1,075 ml @ 50 mls/hr [id number] IV 05/18/25 14:00 Albuterol 2.5 mg Q6HR NEB 05/18/25 14:00 05/19/25 11:28 2.5 MG Acetylcysteine 100 mg Q6HR NEB 05/18/25 14:00 05/19/25 11:28 100 MG Examination: LUNGS:Normal, CVS:Normal, MSK:Abnormal laboratory and microbiology Laboratory Tests 05/19/25 05:14 05/18/25 13:06 Test 05/19/25 05:14 Range/Units Serum Glucose 143 H 74-106 mg/dL Microbiology Date/Time Source Procedure Growth Status 05/11/25 23:45 Voided Urine Urine Culture - Final Yeast, not Diana albicans Complete 05/10/25 02:49 Nose MRSA Screen - Final Methicillin Resistant S.aureus Complete 05/09/25 19:30 Blood Blood Culture - Final NO GROWTH AFTER 5 DAYS OF INCUBATION. Complete Problem List/Assessment/Plan Problem List/Assessment/Plan Acute kidney injury likely acute tubular necrosis in the setting of severe sepsis Severe sepsis Metabolic acidosis Encephalopathy Hypernatremia Hypokalemia Hypocalcemia Hypomagnesemia Hyperphosphatemia CVA Bed-bound Chronic Lindsay for greater than one year Multiple admissions in the past one year Previously on hospice before coming here Recommendations Kidney function continue to slowly improve Increased urine output Strict I&Os Change IV fluid to 1/2 NS with sodium biacrb 75 mEq/L at 100 cc/hour Magnesium sulfate IV piggyback KCL replacement Check PTH and 25 hydroxyvitamin Patient failed swallow eval Consider gastric tube for feeding No indication for acute hemodialysis at this time Continue supportive care Plan discussed with: Other (Mother, primary nurse) Dietary Evaluation Review Comments: 1. TPN per pharmacy to meet Pt's daily needs at 48g Protein 1000kcal, when Tube feeding is not feasible. 2. Nepro@25 ml/hr, providing 49g proteinm 1062 [id number] free water, once NG feeding becomes feasible, Start at 10ml/hr and increase 10ml Q6hr till reach the goal rate. 3. Renal standard CCHO-60 once pt can tolerate PO feedings Expected Outcomes/Goals: gradual wt gain CC Plasma Assessment Blood Product Administration S: [id number] CARLA NETTLES MD May 19, 2025 12:20
[2025-05-19] MEDS: POTASSIUM CHL 20MEQ/100ML 100 ML IV SCH (12:30)
--- NOTE | 2025-05-19 15:30 | DVHPN2 ---
Progress Note - Dictate Date Seen: May 19, 2025 Medical Necessity Reason Pt with a Central, PICC or Fol: No vital signs Vital Sign Date Time Temp Pulse Resp B/P (MAP) Pulse Ox O2 Delivery O2 Flow Rate FiO2 05/19/25 11:34 85 18 99 05/19/25 11:28 Room Air 0.0 05/19/25 11:28 21 05/19/25 08:58 98.5 142/93 (109) 98.5 Total Intake and Output 05/18/25 05/18/25 05/19/25 15:00 23:00 07:00 Intake Total 250 ml 946 ml 478 ml Output Total 375 ml 725 ml Balance 250 ml 571 ml -247 ml medications Current Medications Medications Dose Ordered Sig/Wai Route Start Time Stop Time Status Last Admin Dose Admin Nitroglycerin 0.4 mg Q5MINP PRN SL 05/09/25 23:15 Vancomycin HCl 0 ml @ 0 mls/hr UD IV 05/09/25 23:15 Cancel Pantoprazole Sodium 40 mg DAILY IV 05/10/25 10:00 05/19/25 09:37 40 MG Meropenem 50 ml @ 17 mls/hr Q12HR IV 05/10/25 22:00 05/19/25 09:38 17 MLS/HR Aspirin 81 mg DAILY PO 05/11/25 10:00 Hydralazine HCl 10 mg Q6HP PRN IV 05/12/25 06:30 05/17/25 22:50 10 MG Ceftriaxone Sodium 50 ml @ 100 mls/hr DAILY@09 IV 05/13/25 09:00 UNV Amino Acids 0 ml @ 0 mls/hr PER PHARMACY IV 05/13/25 16:45 Amino Acids/ Electrolytes/ Dextrose 1,000 ml @ 41 mls/hr DAILY@2200 IV 05/13/25 22:00 05/18/25 22:36 41 MLS/HR Diagnostic Test (Pha) 1 strip Q6HR 05/13/25 00:00 05/19/25 11:40 1 STRIP Insulin Human Regular FOLLOW SLIDING SCALE Q6HR SC 05/13/25 00:00 05/19/25 05:58 4 UNITS Dextrose 50 ml UD IV 05/13/25 00:00 Mupirocin 1 applic BID TOP 05/14/25 22:00 05/19/25 09:38 1 APPLIC Linezolid 300 ml @ 150 mls/hr Q12HR IV 05/15/25 22:00 UNV Doxycycline Hyclate 100 ml @ 50 mls/hr Q12H IV 05/16/25 17:00 05/23/25 23:59 05/19/25 04:40 50 MLS/HR Sodium Bicarbonate 75 ml/ Sodium Chloride 1,075 ml @ 50 mls/hr [id number] IV 05/18/25 14:00 Albuterol 2.5 mg Q6HR NEB 05/18/25 14:00 05/19/25 11:28 2.5 MG Acetylcysteine 100 mg Q6HR NEB 05/18/25 14:00 05/19/25 11:28 100 MG Potassium Chloride 100 ml @ 50 mls/hr Q2H IV 05/19/25 12:30 05/19/25 16:29 05/19/25 12:30 50 MLS/HR objective General Appearance: alert, no distress HEENT: EOMI, PERRLA, normal external inspect of ears, no icterus, no nasal drainage Neck: no carotid bruit, no jugular venous distention (JVD), no lymphadenopathy Chest: normal thorax Respiratory: clear to auscultation, normal air movement Cardiovascular: regular rate and rhythm, no diastolic murmur, no jugular venous distention (JVD), no rub, no systolic murmur Abdominal: soft, no hepatomegaly, no mass, no splenomegaly, no tenderness Genitourinary: grossly normal external Musculoskeletal: no joint tenderness, no swelling Extremities: normal pulses, no calf tenderness, no clubbing, no cyanosis, no edema Skin: no bruising, no jaundice, no rash Neurological: alert, No focal deficit laboratory and microbiology Laboratory Tests 05/19/25 05:14 05/18/25 13:06 Test 05/19/25 05:14 Range/Units Serum Glucose 143 H 74-106 mg/dL Problem List 1. Sepsis IV Abx 2. Acute on chronic anemia Medications, Monitoring 3. LISANDRO with CKD 3b Nephrology consult 4. Bed bound Monitoring 5. CVA with residual deficits Monitoring 6. NSTEMI II, demand ischemia Cardiology consult, monitor EKG 7. MRSA w/ Nares Medications, Monitoring 8. Hyperkalemia r/t LISANDRO Hyperkalemia Tx 9. Hypoglycemia Medications, Monitoring Assessment/Plan Subjective Patient is A&O x 1. Objective I spoke patient. Patient was able to open his eyes and follow commands. He remains lethargic however his mentation is improving. Patient's LISANDRO has also resolved to his baseline. No need for dialysis. I did discuss with mother possible need for G-tube. Plan Continue current treatment. Repeat swallow eval ordered for a.m. G-tube versus possible initiation of diet if patient passes swallow eval. Dietary Evaluation Review Comments: 1. TPN per pharmacy to meet Pt's daily needs at 48g Protein 1000kcal, when Tube feeding is not feasible. 2. Nepro@25 ml/hr, providing 49g proteinm 1062 [id number] free water, once NG feeding becomes feasible, Start at 10ml/hr and increase 10ml Q6hr till reach the goal rate. 3. Renal standard CCHO-60 once pt can tolerate PO feedings Expected Outcomes/Goals: gradual wt gain Plan discussed with: Patient, Other CC Plasma Assessment Blood Product Administration S: [id number] RAÚL STEEL NP May 19, 2025 15:30
--- NOTE | 2025-05-19 16:23 | DVH ---
CHEST RADIOGRAPH Indication: pna Technique: Single AP view of the chest WID: Comparison: XY CHEST XRAY 1 VIEW on DOS: 05/16/25, XY CHEST PORTABLE on DOS: 05/14/25, XY CHEST XRAY 1 VIEW on DOS: 05/11/25, XY CHEST PORTABLE on DOS: 05/09/25, XY CHEST PORTABLE on DOS: 01/11/25, XY CHEST XRAY 1 VIEW on DOS: 05/16/25 FINDINGS: Lines and tubes: None Chest: The heart size is slightly obscured due to airspace consolidations. Patchy and confluent airspace opacities bilaterally have decreased particularly in the right lung. Pr obable bilateral pleural effusions, greater on the left. No pneumothorax. The osseous structures are grossly intact. IMPRESSION: Improving multifocal pneumonia.
[2025-05-19] MEDS: CALCIUM GLUC 1,000mg/50ml-NS 50 ML IV ONE (17:00)
--- NOTE | 2025-05-19 20:28 | DVHPNRES ---
Progress Note Date Seen: May 19, 2025 Resident Creating Document: EYAL HI RESIDENT Medical Necessity Reason Pt with a Central, PICC or Fol: No Medical Necessity Reason Patient seen and examined. Mother present. She now wants her son to received dialysis. But current lab values, there is no need for acute dialysis. Patient is still doing well. on room air. stable for discharge Subjective Review of Systems sleeping. mother present. Objective vital signs Vital Sign Date Time Temp Pulse Resp B/P (MAP) Pulse Ox O2 Delivery O2 Flow Rate FiO2 05/19/25 18:58 73 18 100 05/19/25 18:51 Room Air 0.0 05/19/25 18:51 21 05/19/25 13:00 96.9 133/80 (97) 96.9 Total Intake and Output 05/18/25 05/18/25 05/19/25 15:00 23:00 07:00 Intake Total 250 ml 946 ml 478 ml Output Total 375 ml 725 ml Balance 250 ml 571 ml -247 ml medications Current Medications Medications Dose Ordered Sig/Wai Route Start Time Stop Time Status Last Admin Dose Admin Nitroglycerin 0.4 mg Q5MINP PRN SL 05/09/25 23:15 Vancomycin HCl 0 ml @ 0 mls/hr UD IV 05/09/25 23:15 Cancel Pantoprazole Sodium 40 mg DAILY IV 05/10/25 10:00 05/19/25 09:37 40 MG Meropenem 50 ml @ 17 mls/hr Q12HR IV 05/10/25 22:00 05/19/25 09:38 17 MLS/HR Aspirin 81 mg DAILY PO 05/11/25 10:00 Hydralazine HCl 10 mg Q6HP PRN IV 05/12/25 06:30 05/17/25 22:50 10 MG Ceftriaxone Sodium 50 ml @ 100 mls/hr DAILY@09 IV 05/13/25 09:00 UNV Amino Acids 0 ml @ 0 mls/hr PER PHARMACY IV 05/13/25 16:45 Amino Acids/ Electrolytes/ Dextrose 1,000 ml @ 41 mls/hr DAILY@2200 IV 05/13/25 22:00 05/18/25 22:36 41 MLS/HR Diagnostic Test (Pha) 1 strip Q6HR 05/13/25 00:00 05/19/25 17:11 1 STRIP Insulin Human Regular FOLLOW SLIDING SCALE Q6HR SC 05/13/25 00:00 05/19/25 05:58 4 UNITS Dextrose 50 ml UD IV 05/13/25 00:00 Mupirocin 1 applic BID TOP 05/14/25 22:00 05/19/25 09:38 1 APPLIC Linezolid 300 ml @ 150 mls/hr Q12HR IV 05/15/25 22:00 UNV Doxycycline Hyclate 100 ml @ 50 mls/hr Q12H IV 05/16/25 17:00 05/23/25 23:59 05/19/25 17:11 50 MLS/HR Sodium Bicarbonate 75 ml/ Sodium Chloride 1,075 ml @ 50 mls/hr [id number] IV 05/18/25 14:00 05/19/25 13:00 50 MLS/HR Albuterol 2.5 mg Q6HR NEB 05/18/25 14:00 05/19/25 18:54 2.5 MG Acetylcysteine 100 mg Q6HR NEB 05/18/25 14:00 05/19/25 18:54 100 MG Examination General Appearance: awake, confused. Cachectic HEENT: conjunctival pallor seen, no icterus, no cyanosis, Respiratory: Clear to auscultation, Normal air movement on ROOM AIR Cardiovascular: Regular rate, Normal S1, Normal S2, No murmurs, no chest wall tenderness Abdominal: NO distention, no tenderness, bowel sounds present, no scars noted Extremities: muscle wasting Skin: Dry; No rashes, No breakdown, No significant lesion Neuro: bed-bound Psych/Mental Status: nonverbal laboratory and microbiology Laboratory Tests 05/19/25 05:14 05/18/25 13:06 Test 05/19/25 05:14 Range/Units Serum Glucose 143 H 74-106 mg/dL Microbiology Date/Time Source Procedure Growth Status 05/11/25 23:45 Voided Urine Urine Culture - Final Yeast, not Diana albicans Complete 05/10/25 02:49 Nose MRSA Screen - Final Methicillin Resistant S.aureus Complete 05/09/25 19:30 Blood Blood Culture - Final NO GROWTH AFTER 5 DAYS OF INCUBATION. Complete Problem List/Assessment/Plan Problem List/Assessment/Plan Assessment/Plan Neuro: Acute metabolic encephalopathy likely due to sepsis, uremia H/o CVA - IV antibiotics,See below - IV fluids Cardiovascular NSTEMI likely type 2 due to demand ischemia - echo from December 2024 shows LVEF 64% Respiratory Acute hypoxemic respiratory failure, POA - CXR: Findings suggest a mild degree of pulmonary edema which is decreased compared to the prior study on 01/11/2025. Pneumonia is considered less likely. - 2L of oxygen - AB- ABG to be obtained, VBG shows metabolic acidosis with a base excess of - 24.9 - 100 mEq of sodium bicarb - No more ABG - stable for discharge Genitourinary LISANDRO on CKD stage 3 likely due VMN vs ATN, renal function improving CKD stage 3 Chronic Lindsay for greater than one year Nephrology on board: recommended dialysis in the next 24 hours if renal function do not improve. however patient's mother mentioned she does not want dialysis for the patient as he has been sick for the last one year and very weak We will recommend conservative management for now Infectious Disease: Severe sepsis likely due to pneumonia, UTI Pneumonia likely due to Gram +/- bacteria, possible aspiration Indwelling Lindsay's catheter long-term, UTI - broad-spectrum IV antibiotics vancomycin and meropenem, fluconazole - aggressive fluid replacement - change Lindsay catheter - Urine culture: yeast, Gram negative rods - blood cultures pending -- duo nebs q.6 hours, acetylcysteine q.6 hours --> Meropenem and vancomycin, add fluconazole Metabolic Hyperkalemia Hypernatremia Hypocalcemia Anion gap metabolic acidosis likely due to uremia - IV fluids; IVF D5W with two amps sodium bicarb at 100 cc/hour - Lasix IV ( not used aggressively because patient was septic low blood pressure) - hyperkalemia treatment protocols given - ABG to be obtained, VBG shows metabolic acidosis with a base excess of -24.9 - 100 mEq of sodium bicarb- Stopped Endocrine Hyperglycemia with a history of diabetes mellitus Probable starvation ketosis Severe protein calorie malnutrition Cachexia - currently patient NPO - mild ISS - D5 half NS IV fluid Hematology: Microcytic normochromic anemia Severe anemia - 1 unit of PRBC transfused 1x - Daily CBC, if less than 7 transfuse another PRBC PUD prophylaxis: Protonix DVT prophylaxis: Currently held because of low hemoglobin, SCD Plan: Stable for discharge from pulmonology stand point Disposition: Telemetry Plan: Previously on hospice before coming here. To send him back to Hospice. Goals of care discussed for more than 25 minutes, Code status: Full Case discussed with with the patient's primary RN and Dr. Jacobs Plan discussed with: Other (mother and nurse) Dietary Evaluation Review Comments: 1. TPN per pharmacy to meet Pt's daily needs at 48g Protein 1000kcal, when Tube feeding is not feasible. 2. Nepro@25 ml/hr, providing 49g proteinm 1062 [id number] free water, once NG feeding becomes feasible, Start at 10ml/hr and increase 10ml Q6hr till reach the goal rate. 3. Renal standard CCHO-60 once pt can tolerate PO feedings Expected Outcomes/Goals: gradual wt gain CC Plasma Assessment Blood Product Administration S: [id number] Date of Service: May 19, 2025 Billing Provider: SYD JACOBS MD Common Visit Codes: NOT BILLABLE EYAL HI RESIDENT May 19, 2025 20:28 SYD JACOBS MD May 24, 2025 18:12
[2025-05-20] VITALS (17 sets, daily range): BP systolic 121–175; BP diastolic 70–95; PULSE 70–81; RESP 16–22; TEMP 96.3–97.6; O2SAT 96–100
--- NOTE | 2025-05-20 06:39 | DVHPN2 ---
Progress Note - Dictate Date Seen: May 20, 2025 Medical Necessity Reason Pt with a Central, PICC or Fol: No vital signs Vital Sign Date Time Temp Pulse Resp B/P (MAP) Pulse Ox O2 Delivery O2 Flow Rate FiO2 05/20/25 04:59 97.5 80 18 121/78 (92) 97 97.5 05/20/25 00:19 Room Air 0.0 05/20/25 00:19 21 Total Intake and Output 05/19/25 05/19/25 05/20/25 15:00 23:00 07:00 Intake Total 50 ml 200 ml 50 ml Output Total 600 ml 800 ml Balance 50 ml -400 ml -750 ml medications Current Medications Medications Dose Ordered Sig/Wai Route Start Time Stop Time Status Last Admin Dose Admin Nitroglycerin 0.4 mg Q5MINP PRN SL 05/09/25 23:15 Vancomycin HCl 0 ml @ 0 mls/hr UD IV 05/09/25 23:15 Cancel Pantoprazole Sodium 40 mg DAILY IV 05/10/25 10:00 05/19/25 09:37 40 MG Meropenem 50 ml @ 17 mls/hr Q12HR IV 05/10/25 22:00 05/19/25 21:14 17 MLS/HR Aspirin 81 mg DAILY PO 05/11/25 10:00 Hydralazine HCl 10 mg Q6HP PRN IV 05/12/25 06:30 05/20/25 01:19 10 MG Ceftriaxone Sodium 50 ml @ 100 mls/hr DAILY@09 IV 05/13/25 09:00 UNV Amino Acids 0 ml @ 0 mls/hr PER PHARMACY IV 05/13/25 16:45 Amino Acids/ Electrolytes/ Dextrose 1,000 ml @ 41 mls/hr DAILY@2200 IV 05/13/25 22:00 05/19/25 21:15 41 MLS/HR Diagnostic Test (Pha) 1 strip Q6HR 05/13/25 00:00 05/20/25 05:35 1 STRIP Insulin Human Regular FOLLOW SLIDING SCALE Q6HR SC 05/13/25 00:00 05/19/25 05:58 4 UNITS Dextrose 50 ml UD IV 05/13/25 00:00 Mupirocin 1 applic BID TOP 05/14/25 22:00 05/19/25 21:12 1 APPLIC Linezolid 300 ml @ 150 mls/hr Q12HR IV 05/15/25 22:00 UNV Doxycycline Hyclate 100 ml @ 50 mls/hr Q12H IV 05/16/25 17:00 05/23/25 23:59 05/20/25 05:17 50 MLS/HR Sodium Bicarbonate 75 ml/ Sodium Chloride 1,075 ml @ 50 mls/hr [id number] IV 05/18/25 14:00 05/19/25 13:00 50 MLS/HR Albuterol 2.5 mg Q6HR NEB 05/18/25 14:00 05/20/25 00:19 2.5 MG Acetylcysteine 100 mg Q6HR NEB 05/18/25 14:00 05/20/25 00:19 100 MG laboratory and microbiology Laboratory Tests 05/18/25 13:06 Test 05/20/25 05:10 Range/Units Serum Glucose Pending Assessment/Plan Patient is a 44-year-old gentleman who presented with altered mental status/shortness of breath. He is at baseline poor historian. Information was obtained by reviewing the chart and communicating with staff. It seems that since arrival the patient was found to have severe sepsis and multiorgan dysfunction. He has been on supplemental oxygen. 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 Reportedly on arrival to Emergency room blood pressure was low on later improved. Cardiology is involved for cardiac aspects of care. There is no report of chest pain. Lying flat in bed. No JVD. Mucosa is pink and wet. Scattered rhonchi in the lungs is heard. Cardiac: Regular, tachycardic, no thrill. Systolic murmur 2/6 in apex is heard. Abdomen is soft. There is no gross mass. There is no hepatomegaly. Extremities do not reveal edema. Dorsalis pedis is 2+ bilateral Past medical history reportedly includes old history of CVA with poor functional capacity, CKD, hypertension, hyperlipidemia, diabetes mellitus, repeated history of sepsis, history of urethral stricture and recurrent UTI, history of phimosis anemia and bed-bound at baseline. There was question if the patient has baseline history of diastolic heart failure Echocardiogram of December 2024 revealed ejection fraction of 64%, trace MR/TR and right ventricular systolic pressure of 34 mm Hg. WBC: 26.7 - 20.8 - 29.9 - 29.4 - 28.9 - 21.8 - 18.4 - 16.0 - 13.0 Hemoglobin: 5.9 - 6.8 - 7.8 - 9.0 - 9.5 - 8.5 - 8.4 - 8.7 - 8.9 BNP: 528.66 - 280.34 Creatinine: 5.69 - 5.7 - 4.72 - 4.86 - 4.67 - 4.73 - 4.70 - 4.77 - 4.84 - 4.51 - 4.46 - 4.03 - 4.03 - 3.88 - 3.69 - 3.36 - 3.29 - 3.34 today's pending Potassium: 8.0 - 7.6 - 5.8 - 5.8 - 5.0 - 5.0 - 5.0 - 4.9 - 4.4 - 3.9 - 3.2 - 3.2 - 3.4 - 4.0 - 3.7 - 3.8 - 3.5 today's pending Sodium: 147 - 146 - 153 - 154 - 157 - 155 - 154 - 152 - 150 - 150 - 147 - 147 - 143 - 140 - 134 - 135 - 134 today's pending AST/ALT: 96/66 - 468/478 - 257/349 - 15/118 - 11/67 - 10/42 - 30 today's pending Troponin (high sensitive): 81 - 89 - 92 Chest x-ray reported: IMPRESSION: Findings suggest a mild degree of pulmonary edema which is decreased compared to the prior study on 01/11/2025. Pneumonia is considered less likely Repeat chest xry revealed: IMPRESSION: 1. No interval change. Repeat chest xry revealed: 1. Increase in patchy and confluent bilateral airspace opacities which could reflect worsening multifocal pneumonia and/or pulmonary edema. 2. Probable bilateral pleural effusions, greater on the left. Repeat chest xry revealed: IMPRESSION: Improving multifocal pneumonia. Renal ultrasound reported: IMPRESSION: Bilateral medical renal disease. EKG revealed sinus tachycardia Tele shows sinus tachycardia Echocardiogram revealed: Left ventricle: Mild diffuse hypokinesis of left ventricle was seen. LVEF was around 50%. Right ventricle was normal size with mildly reduced systolic function. Both atria were normal size. Aortic valve was trileaflet. There was no aortic insufficiency/stenosis. There was mild mitral/tricuspid regurgitation. There was no pulmonary valve insufficiency. Right ventricular systolic pressure was assessed at 35 mm Hg. There was trace pericardial effusion. Patient is a 44-year-old gentleman who was at baseline bed-bound with old history of CVA who presented with altered mental status and shortness of breath. Presentation is in favor acute respiratory failure secondary to sepsis. Multiorgan failure secondary to sepsis is considered. Minimal increase in troponin is considered to reflect demand ischemia in a patient with questionable history of diastolic heart failure. In December 2024 ejection fraction in echocardiogram was 64% with no specific increase in right ventricular systolic pressure. Acute respiratory failure Sepsis Encephalopathy, metabolic versus toxic LISANDRO on CKD ATN Demand ischemia Hypernatremia Hypokalemia Anemia Cardiac suggestion for management: Manage in tele Fluid resuscitation as per Nephrology Follow-up electrolytes and kidney function tests and correct abnormalities Aspirin: 81 mg daily with old history of CVA is suggested DVT prophylaxis as per primary team Has failed swallowing evaluation Control hypertension Management of sepsis/infection as per primary team Pulmonary follow-up Nephrology follow up Recognizing co-morbidities, prognosis is poor Further evaluation and management depends on the above and clinical course A total of 55 minutes was spent reviewing the patient record, examining the patient, making a diagnostic and therapeutic plan, discussing this plan with medical personnel, following up on diagnostic studies and following the patient for clinical stability excluding any and all procedures. At least 50% of this time was spent in direct, [id number] contact. Thank you for allowing me to participate in this patient's care. Further recommendations will depend on patient's clinical course. Please do not hesitate to contact me if you have any questions or concerns. This medical document was created using electronic medical record system with [employer] computerized dictation system. Although this document has been carefully reviewed, there may still be some phonetic and typographical errors. These areas are purely typographical due to the imperfection of the software programs, and do not reflect any compromise in the patient's medical care. Dietary Evaluation Review Comments: 1. TPN per pharmacy to meet Pt's daily needs at 48g Protein 1000kcal, when Tube feeding is not feasible. 2. Nepro@25 ml/hr, providing 49g proteinm 1062 [id number] free water, once NG feeding becomes feasible, Start at 10ml/hr and increase 10ml Q6hr till reach the goal rate. 3. Renal standard CCHO-60 once pt can tolerate PO feedings Expected Outcomes/Goals: gradual wt gain Plan discussed with: Other (nurse) CC Plasma Assessment Blood Product Administration S: [id number] FAN HAMEED MD May 20, 2025 06:39
[2025-05-20 06:46] LABS: Alanine Aminotransferase 24 U/L (7-40); Anion Gap 13 (5-15); BUN/Creatinine Ratio 34.8 (10.0-20.0); Carbon Dioxide 21 mmol/L (20-31); Chloride 101 mmol/L (98-107); Glucose 83 mg/dL (74-106); Magnesium 1.9 mg/dL (1.6-2.6)
[2025-05-20 06:47] LABS: Albumin 2.2 g/dL (3.2-4.8); Alkaline Phosphatase 168 U/L (46-116); Bilirubin, Total < 0.2 mg/dL (0.2-1.0); Calcium 7.0 mg/dL (8.7-10.4); Potassium 3.5 mmol/L (3.5-5.1); Sodium 135 mmol/L (136-145); Total Protein 5.0 g/dL (5.7-8.2)
[2025-05-20 06:49] LABS: Blood Urea Nitrogen 112 mg/dL (9-23)
--- NOTE | 2025-05-20 11:25 | DVHPN2 ---
Progress Note Date Seen: May 20, 2025 Medical Necessity Reason Pt with a Central, PICC or Fol: No Subjective Patient reports: No new complaints Review of Systems: MSK:Abnormal, NEURO:Abnormal Other Systems: Patient seen and examined by myself today in follow-up, mother Objective vital signs Vital Sign Date Time Temp Pulse Resp B/P (MAP) Pulse Ox O2 Delivery O2 Flow Rate FiO2 05/20/25 09:00 97.0 78 16 125/70 (88) 98 97.0 05/20/25 07:30 Room Air 05/20/25 07:30 0 21 Total Intake and Output 05/19/25 05/19/25 05/20/25 15:00 23:00 07:00 Intake Total 50 ml 200 ml 721.5 ml Output Total 600 ml 800 ml Balance 50 ml -400 ml -78.5 ml medications Current Medications Medications Dose Ordered Sig/Wai Route Start Time Stop Time Status Last Admin Dose Admin Nitroglycerin 0.4 mg Q5MINP PRN SL 05/09/25 23:15 Vancomycin HCl 0 ml @ 0 mls/hr UD IV 05/09/25 23:15 Cancel Pantoprazole Sodium 40 mg DAILY IV 05/10/25 10:00 05/20/25 10:05 40 MG Meropenem 50 ml @ 17 mls/hr Q12HR IV 05/10/25 22:00 05/20/25 10:16 17 MLS/HR Aspirin 81 mg DAILY PO 05/11/25 10:00 Hydralazine HCl 10 mg Q6HP PRN IV 05/12/25 06:30 05/20/25 01:19 10 MG Ceftriaxone Sodium 50 ml @ 100 mls/hr DAILY@09 IV 05/13/25 09:00 UNV Amino Acids 0 ml @ 0 mls/hr PER PHARMACY IV 05/13/25 16:45 Amino Acids/ Electrolytes/ Dextrose 1,000 ml @ 41 mls/hr DAILY@2200 IV 05/13/25 22:00 05/19/25 21:15 41 MLS/HR Diagnostic Test (Pha) 1 strip Q6HR 05/13/25 00:00 05/20/25 05:35 1 STRIP Insulin Human Regular FOLLOW SLIDING SCALE Q6HR SC 05/13/25 00:00 05/19/25 05:58 4 UNITS Dextrose 50 ml UD IV 05/13/25 00:00 Mupirocin 1 applic BID TOP 05/14/25 22:00 05/20/25 10:06 1 APPLIC Linezolid 300 ml @ 150 mls/hr Q12HR IV 05/15/25 22:00 UNV Doxycycline Hyclate 100 ml @ 50 mls/hr Q12H IV 05/16/25 17:00 05/23/25 23:59 05/20/25 05:17 50 MLS/HR Sodium Bicarbonate 75 ml/ Sodium Chloride 1,075 ml @ 50 mls/hr [id number] IV 05/18/25 14:00 05/19/25 13:00 50 MLS/HR Albuterol 2.5 mg Q6HR NEB 05/18/25 14:00 05/20/25 07:30 2.5 MG Acetylcysteine 100 mg Q6HR NEB 05/18/25 14:00 05/20/25 07:30 100 MG Examination: LUNGS:Normal (At the bedside), CVS:Normal, MSK:Abnormal laboratory and microbiology Laboratory Tests 05/20/25 05:10 05/18/25 13:06 Test 05/20/25 05:10 Range/Units Serum Glucose 83 74-106 mg/dL Microbiology Date/Time Source Procedure Growth Status 05/11/25 23:45 Voided Urine Urine Culture - Final Yeast, not Diana albicans Complete 05/10/25 02:49 Nose MRSA Screen - Final Methicillin Resistant S.aureus Complete 05/09/25 19:30 Blood Blood Culture - Final NO GROWTH AFTER 5 DAYS OF INCUBATION. Complete Problem List/Assessment/Plan Problem List/Assessment/Plan Acute kidney injury likely acute tubular necrosis in the setting of severe sepsis Severe sepsis Metabolic acidosis Encephalopathy Hypernatremia Hypokalemia Hypocalcemia Hypomagnesemia Hyperphosphatemia CVA Bed-bound Chronic Lindsay for greater than one year Multiple admissions in the past one year Previously on hospice before coming here Recommendations Kidney function continue to slowly improve Increased urine output Strict I&Os Change IV fluid to 1/2 NS with sodium biacrb 75 mEq/L at 100 cc/hour Magnesium sulfate IV piggyback KCL replacement Check PTH and 25 hydroxyvitamin Patient failed swallow eval Consider gastric tube for feeding No indication for acute hemodialysis at this time Continue supportive care Plan discussed with: Other (Nurse, mother) Dietary Evaluation Review Comments: 1. TPN per pharmacy to meet Pt's daily needs at 48g Protein 1000kcal, when Tube feeding is not feasible. 2. Nepro@25 ml/hr, providing 49g proteinm 1062 [id number] free water, once NG feeding becomes feasible, Start at 10ml/hr and increase 10ml Q6hr till reach the goal rate. 3. Renal standard CCHO-60 once pt can tolerate PO feedings Expected Outcomes/Goals: gradual wt gain CC Plasma Assessment Blood Product Administration S: [id number] CARLA NETTLES MD May 20, 2025 11:25
--- NOTE | 2025-05-20 13:44 | DVHINCON2 ---
GI Consult Consult Note GI consult note Date of Consultation: 05/20/2025 Chief Complaint: G-tube placement Referring Physician:Jai WELSH H&P: 44-year-old male presented to ER with shortness of breath Patient has history of stroke with residual deficits, cerebral palsy, bed-bound, history mostly from mother at bedside RN and the chart Patient is on Clinimix at this time Per mother patient was able to tolerate certain solid foods, but would puree fo ods like chicken Past Medical History: CVA with poor functional capacity, CKD, hypertension, hyperlipidemia, diabetes mellitus, repeated history of sepsis, history of urethral stricture and recurrent UTI, history of phimosis anemia and bed-bound at baseline Past Surgical History: Denies per chart Social History: NO smoking, drinking ETOH and use of illegal drugs. Family History: Noncontributory Review of Systems: As above Physical exam: General: NAD, patient is resting Chest: lung perez clear to auscultation Heart: RRR, no murmur Abdomen: non-distended, no tenderness to palpation, +BS Labs: Labs Test 05/20/25 12:32 05/20/25 05:10 05/18/25 13:06 05/18/25 05:59 Range/Units POC Glucose 104 70-106 mg/dl Sodium Level 135 L 136-145 mmol/L Potassium Level 3.5 3.5-5.1 mmol/L Chloride Level 101 98-107 mmol/L Carbon Dioxide Level 21 20-31 mmol/L Anion Gap 13 5-15 Blood Urea Nitrogen 112 *H 9-23 mg/dL Creatinine 3.22 H 0.700-1.30 mg/dL Glomerular Filtration Rate Calc 23 >90 mL/min BUN/Creatinine Ratio 34.8 H 10.0-20.0 Serum Glucose 83 74-106 mg/dL Calcium Level 7.0 L 8.7-10.4 mg/dL Phosphorus Level 6.4 H 2.4-5.1 mg/dL Magnesium Level 1.9 1.6-2.6 mg/dL Total Bilirubin < 0.2 L 0.2-1.0 mg/dL Aspartate Amino Transferase (AST) 11 <34 U/L Alanine Aminotransferase (ALT) 24 7-40 U/L Alkaline Phosphatase 168 H 46-116 U/L Total Protein 5.0 L 5.7-8.2 g/dL Albumin 2.2 L 3.2-4.8 g/dL White Blood Count 13.0 H 4.4-10.8 10^3/uL Red Blood Count 3.04 L 4.5-5.90 10^6/uL Hemoglobin 8.9 L 13.5-17.5 g/dL Hematocrit 27.0 L 41.0-53.0 % Mean Corpuscular Volume 88.8 80.0-100.0 fL Mean Corpuscular Hemoglobin 29.2 28.0-32.0 pg Mean Corpuscular Hemoglobin Concent 32.9 32.0-36.0 g/dL Red Cell Distribution Width 17.1 H 11.8-14.3 % Platelet Count 130 L 140-450 10^3/uL Mean Platelet Volume 11.7 H 6.9-10.8 fL Neutrophils (%) (Auto) 79.7 37.0-80.0 % Lymphocytes (%) (Auto) 10.7 10.0-50.0 % Monocytes (%) (Auto) 6.3 0.0-12.0 % Eosinophils (%) (Auto) 2.7 0.0-7.0 % Basophils (%) (Auto) 0.6 0.0-2.0 % Neutrophils # (Auto) 10.4 H 1.6-8.6 10 ^3/uL Lymphocytes # (Auto) 1.4 0.4-5.4 10 ^3/uL Monocytes # (Auto) 0.8 0-1.3 10 ^3/uL Eosinophils # (Auto) 0.3 0-0.8 10 ^3/uL Basophils # (Auto) 0.1 0-0.2 10 ^3/uL Nucleated Red Blood Cells 0.2 % B-Type Natriuretic Peptide 280.34 0-100 pg/mL Vitamin D 25-Hydroxy 17.1 L 30.0-100 ng/mL Parathyroid Hormone (Intact) 201.1 H 18.4-80.1 pg/mL Estimated GFR () 26 mL/min Estimated GFR (Non- 21 mL/min Test 05/14/25 06:46 05/13/25 10:00 05/12/25 04:08 05/11/25 03:45 Range/Units Random Vancomycin Level 12.0 H 5-10 ug/mL Differential Total Cells Counted 100.0 100 Neutrophils % (Manual) 89 H 37.0-80.0 Band Neutrophils % (Manual) 0 Lymphocytes % (Manual) 6 L 10.0-50.0 Monocytes % (Manual) 5 0-12 Eosinophils % (Manual) 0 0-7 Basophils % (Manual) 0 0.0-2.0 Metamyelocytes % (manual) 0 Myelocytes % (Manual) 0 Promyelocytes % (Manual) 0 Blast Cells % (Manual) 0 Reactive Lymphocytes 0 Platelet Estimate Adequate Large Platelets Few Poikilocytosis (manual) Slight [place] Cells Few Schistocytes Few Test 05/10/25 18:12 05/10/25 15:39 05/10/25 08:58 05/10/25 04:45 Range/Units Blood Gas Specimen Type Arterial Blood Gas Sample Site Left brachial Blood Gas Patient Temperature 37.0 Arterial Blood Date Drawn [id number] Arterial Blood pH 7.390 7.350-7.450 Arterial Blood Partial Pressure CO2 22.6 L 35.0-48.0 mmHg Arterial Blood Partial Pressure O2 74.0 L 83.0-108.0 mmHg Arterial Blood HCO3 13.4 L 21.0-28.0 mmol/L Arterial Blood Oxygen Saturation 93.6 L 94.0-98.0 % Arterial Blood Base Excess -9.9 L -2.0-3.0 mmol/L Arterial Blood Oxyhemoglobin 92.5 L 94.0-98.0 % Arterial Blood Carboxyhemoglobin 0.5 0.5-1.5 % Arterial Blood Methemoglobin 0.7 0.0-1.5 % Alberto Test N/a Blood Gas Total Hemoglobin 11.00 L 13.5-17.5 g/dL Blood Gas Modality Room air FiO2 % 21.0 Lactic Acid Level 0.7 0.4-2.0 mmol/L Blood Gas Critical Value Read Back Yes Blood Gas Notified Whom aren Claros Blood Gas Notified Time [id number] Blood Gas Notified By Nyla baptiste Urine Color Colorless Yellow Urine Clarity Ex.turbid Clear Urine pH 6.0 5.0-9.0 Urine Specific [place] 1.012 1.001-1.035 Urine Protein 2+ H Negative Urine Ketones Negative Negative Urine Blood 3+ H Negative /uL Urine Nitrite Negative Negative Urine Bilirubin Negative Negative Urine Urobilinogen Normal Negative mg/dL Urine Leukocyte Esterase 3+ Negative /uL Urine RBC 854 0 - 3 /hpf Urine WBC Clumps Present None Seen /hpf Urine Microscopic WBC 665 H 0-3 /HPF Urine Squamous Epithelial Cells None seen <5 /hpf Urine Bacteria None seen None Seen /hpf Urine Creatinine 15.58 L 30.0-125.0 mg/dL Urine Protein/Creatinine Ratio 28.82 Urine Sodium 108 40-220 mmol/L Urine Glucose 1+ H Normal mg/dL Urine Total Protein 449.0 H 1-14 mg/dL Test 05/10/25 02:49 05/09/25 23:49 05/09/25 22:33 05/09/25 19:30 Range/Units Influenza Type A Antigen Negative Negative Influenza Type B Antigen Negative Negative SARS-CoV-2 Antigen (Rapid) Negative NEGATIVE Venous Blood pH 7.003 *L 7.320-7.430 Venous Blood pCO2 at Patient Temp 16.6 L 38.0-54.0 mmHg Venous Blood pO2 at Patient Temp 49.3 H 23.0-48.0 mmHg Venous Blood HCO3 4.0 L 22.0-29.0 mmol/L Venous Bld O2 Saturation (Measured) 66.0 60.0-85.0 % Venous Blood Base Excess -24.9 L -2.0-3.0 mmol/L Venous Blood Total Hemoglobin 5.5 L 13.5-17.5 g/dL Venous Blood Oxyhemoglobin 65.0 0.0-79.0 % Venous Blood Carboxyhemoglobin 0.4 L 0.5-1.5 % Venous Blood Methemoglobin 1.1 0.0-1.5 % Blood Gas Spontaneous Rate 26 Troponin I High Sensitivity 92 *H </=54 ng/L Beta-Hydroxybutyric Acid 0.515 H < 0.4 mmol/L Microbiology Date/Time Source Procedure Growth Status 05/11/25 23:45 Voided Urine Urine Culture - Final Yeast, not Diana albicans Complete 05/10/25 02:49 Nose MRSA Screen - Final Methicillin Resistant S.aureus Complete 05/09/25 19:30 Blood Blood Culture - Final NO GROWTH AFTER 5 DAYS OF INCUBATION. Complete Imaging: Assessment: Sepsis History of CVA UTI with yeast and Gram-negative rods Plan: Discussed with Dr. Lambert ortiz pending Continue Clinimix Continue treatment for sepsis Cardiac clearance requested, for possible EGD with PEG if required Plan discussed with mother at bedside and RN Thank you for this consult Date of Service: May 20, 2025 Billing Provider: SOLITARIO GARCIA Common Visit Codes: CONSULT ONLY Consultation Codes: [id number] CONSULT <60MIN SOLITARIO GARCIA May 20, 2025 13:44
--- NOTE | 2025-05-20 16:37 | DVHPN2 ---
Progress Note - Dictate Date Seen: May 20, 2025 Medical Necessity Reason Pt with a Central, PICC or Fol: No vital signs Vital Sign Date Time Temp Pulse Resp B/P (MAP) Pulse Ox O2 Delivery O2 Flow Rate FiO2 05/20/25 13:17 96.3 70 22 145/91 (109) 99 96.3 05/20/25 12:35 Room Air* 0 21 Total Intake and Output 05/19/25 05/19/25 05/20/25 14:59 22:59 06:59 Intake Total 50 ml 200 ml 721.5 ml Output Total 600 ml 800 ml Balance 50 ml -400 ml -78.5 ml medications Current Medications Medications Dose Ordered Sig/Wai Route Start Time Stop Time Status Last Admin Dose Admin Nitroglycerin 0.4 mg Q5MINP PRN SL 05/09/25 23:15 Vancomycin HCl 0 ml @ 0 mls/hr UD IV 05/09/25 23:15 Cancel Pantoprazole Sodium 40 mg DAILY IV 05/10/25 10:00 05/20/25 10:05 40 MG Meropenem 50 ml @ 17 mls/hr Q12HR IV 05/10/25 22:00 05/20/25 10:16 17 MLS/HR Aspirin 81 mg DAILY PO 05/11/25 10:00 Hydralazine HCl 10 mg Q6HP PRN IV 05/12/25 06:30 05/20/25 01:19 10 MG Ceftriaxone Sodium 50 ml @ 100 mls/hr DAILY@09 IV 05/13/25 09:00 UNV Amino Acids 0 ml @ 0 mls/hr PER PHARMACY IV 05/13/25 16:45 Amino Acids/ Electrolytes/ Dextrose 1,000 ml @ 41 mls/hr DAILY@2200 IV 05/13/25 22:00 05/19/25 21:15 41 MLS/HR Diagnostic Test (Pha) 1 strip Q6HR 05/13/25 00:00 05/20/25 12:00 1 STRIP Insulin Human Regular FOLLOW SLIDING SCALE Q6HR SC 05/13/25 00:00 05/19/25 05:58 4 UNITS Dextrose 50 ml UD IV 05/13/25 00:00 Mupirocin 1 applic BID TOP 05/14/25 22:00 05/20/25 10:06 1 APPLIC Linezolid 300 ml @ 150 mls/hr Q12HR IV 05/15/25 22:00 UNV Doxycycline Hyclate 100 ml @ 50 mls/hr Q12H IV 05/16/25 17:00 05/23/25 23:59 05/20/25 05:17 50 MLS/HR Sodium Bicarbonate 75 ml/ Sodium Chloride 1,075 ml @ 50 mls/hr [id number] IV 05/18/25 14:00 05/19/25 13:00 50 MLS/HR Albuterol 2.5 mg Q6HR NEB 05/18/25 14:00 05/20/25 12:35 2.5 MG Acetylcysteine 100 mg Q6HR NEB 05/18/25 14:00 05/20/25 12:35 100 MG objective General Appearance: alert, no distress HEENT: EOMI, PERRLA, normal external inspect of ears, no icterus, no nasal drainage Neck: no carotid bruit, no jugular venous distention (JVD), no lymphadenopathy Chest: normal thorax Respiratory: clear to auscultation, normal air movement Cardiovascular: regular rate and rhythm, no diastolic murmur, no jugular venous distention (JVD), no rub, no systolic murmur Abdominal: soft, no hepatomegaly, no mass, no splenomegaly, no tenderness Genitourinary: grossly normal external Musculoskeletal: no joint tenderness, no swelling Extremities: normal pulses, no calf tenderness, no clubbing, no cyanosis, no edema Skin: no bruising, no jaundice, no rash Neurological: alert, No focal deficit laboratory and microbiology Laboratory Tests 05/20/25 05:10 05/18/25 13:06 Test 05/20/25 05:10 Range/Units Serum Glucose 83 74-106 mg/dL Problem List 1. Sepsis IV Abx 2. Acute on chronic anemia Medications, Monitoring 3. LISANDRO with CKD 3b Nephrology consult 4. Bed bound Monitoring 5. CVA with residual deficits Monitoring 6. NSTEMI II, demand ischemia Cardiology consult, monitor EKG 7. MRSA w/ Nares Medications, Monitoring 8. Hyperkalemia r/t LISANDRO Hyperkalemia Tx 9. Hypoglycemia Medications, Monitoring Assessment/Plan Subjective: Patient is more lethargic today. Objective I spoke with patient's mother as she was exiting the hospital. According to Cait's son has been more interactive however he has gotten more tired towards the end of the day. Patient is still pending a swallow eval. Mother will consider PEG tube placement if he fails his swallow eval. Plan Continue Clinimix for nutritional support at this time. Pending swallow eval. If patient passes a swallow eval mom will DC home with hospice. Continue antibiotics for sepsis due to pneumonia. Start chest physiotherapy and Mucomyst. Continue Med-Neb treatments. Monitor daily labs. Labs ordered for a.m. Dietary Evaluation Review Comments: 1. TPN per pharmacy to meet Pt's daily needs at 48g Protein 1000kcal, when Tube feeding is not feasible. 2. Nepro@25 ml/hr, providing 49g proteinm 1062 [id number] free water, once NG feeding becomes feasible, Start at 10ml/hr and increase 10ml Q6hr till reach the goal rate. 3. Renal standard CCHO-60 once pt can tolerate PO feedings Expected Outcomes/Goals: gradual wt gain Plan discussed with: Patient, Other CC Plasma Assessment Blood Product Administration S: [id number] RAÚL STEEL NP May 20, 2025 16:37
--- NOTE | 2025-05-20 19:36 | DVHPNRES ---
Progress Note Date Seen: May 20, 2025 Resident Creating Document: EYAL PROCTOR MD Medical Necessity Reason Pt with a Central, PICC or Fol: No Medical Necessity Reason patient seen and examined. Mother spoken to. Patient open his eyes and follow commands. He remains lethargic however his mentation is improving. LISANDRO is resolved. back to baseline thus there is no need for dialysis. Patient, has not eaten for couple of days. Primary team will consult GI for G-tube. Subjective Review of Systems unable to assess Objective vital signs Vital Sign Date Time Temp Pulse Resp B/P (MAP) Pulse Ox O2 Delivery O2 Flow Rate FiO2 05/20/25 16:54 97.3 74 18 137/90 (106) 96 97.3 05/20/25 12:35 Room Air* 0 21 Total Intake and Output 05/19/25 05/19/25 05/20/25 15:00 23:00 07:00 Intake Total 50 ml 200 ml 721.5 ml Output Total 600 ml 800 ml Balance 50 ml -400 ml -78.5 ml medications Current Medications Medications Dose Ordered Sig/Wai Route Start Time Stop Time Status Last Admin Dose Admin Nitroglycerin 0.4 mg Q5MINP PRN SL 05/09/25 23:15 Vancomycin HCl 0 ml @ 0 mls/hr UD IV 05/09/25 23:15 Cancel Pantoprazole Sodium 40 mg DAILY IV 05/10/25 10:00 05/20/25 10:05 40 MG Meropenem 50 ml @ 17 mls/hr Q12HR IV 05/10/25 22:00 05/20/25 10:16 17 MLS/HR Aspirin 81 mg DAILY PO 05/11/25 10:00 Hydralazine HCl 10 mg Q6HP PRN IV 05/12/25 06:30 05/20/25 01:19 10 MG Ceftriaxone Sodium 50 ml @ 100 mls/hr DAILY@09 IV 05/13/25 09:00 UNV Amino Acids 0 ml @ 0 mls/hr PER PHARMACY IV 05/13/25 16:45 Amino Acids/ Electrolytes/ Dextrose 1,000 ml @ 41 mls/hr DAILY@2200 IV 05/13/25 22:00 05/19/25 21:15 41 MLS/HR Diagnostic Test (Pha) 1 strip Q6HR 05/13/25 00:00 05/20/25 17:09 1 STRIP Insulin Human Regular FOLLOW SLIDING SCALE Q6HR SC 05/13/25 00:00 05/19/25 05:58 4 UNITS Dextrose 50 ml UD IV 05/13/25 00:00 Mupirocin 1 applic BID TOP 05/14/25 22:00 05/20/25 10:06 1 APPLIC Linezolid 300 ml @ 150 mls/hr Q12HR IV 05/15/25 22:00 UNV Doxycycline Hyclate 100 ml @ 50 mls/hr Q12H IV 05/16/25 17:00 05/23/25 23:59 05/20/25 17:09 50 MLS/HR Sodium Bicarbonate 75 ml/ Sodium Chloride 1,075 ml @ 50 mls/hr [id number] IV 05/18/25 14:00 05/19/25 13:00 50 MLS/HR Albuterol 2.5 mg Q6HR NEB 05/18/25 14:00 05/20/25 12:35 2.5 MG Acetylcysteine 100 mg Q6HR NEB 05/18/25 14:00 05/20/25 12:35 100 MG Examination General Appearance: awake, confused improving, Cachectic HEENT: conjunctival pallor seen, no icterus, no cyanosis, Respiratory: Clear to auscultation, Normal air movement on ROOM AIR Cardiovascular: Regular rate, Normal S1, Normal S2, No murmurs, no chest wall tenderness Abdominal: NO distention, no tenderness, bowel sounds present, no scars noted Extremities: muscle wasting Skin: Dry; No rashes, No breakdown, No significant lesion Neuro: bed-bound Psych/Mental Status: nonverbal laboratory and microbiology Laboratory Tests 05/20/25 05:10 05/18/25 13:06 Test 05/20/25 05:10 Range/Units Serum Glucose 83 74-106 mg/dL Microbiology Date/Time Source Procedure Growth Status 05/11/25 23:45 Voided Urine Urine Culture - Final Yeast, not Diana albicans Complete 05/10/25 02:49 Nose MRSA Screen - Final Methicillin Resistant S.aureus Complete 05/09/25 19:30 Blood Blood Culture - Final NO GROWTH AFTER 5 DAYS OF INCUBATION. Complete Problem List/Assessment/Plan Problem List/Assessment/Plan Assessment/Plan Neuro: Acute metabolic encephalopathy likely due to sepsis, uremia H/o CVA - IV antibiotics,See below - IV fluids Cardiovascular NSTEMI likely type 2 due to demand ischemia - echo from December 2024 shows LVEF 64% Respiratory Acute hypoxemic respiratory failure, POA - CXR: Findings suggest a mild degree of pulmonary edema which is decreased compared to the prior study on 01/11/2025. Pneumonia is considered less likely. - 2L of oxygen - ABG, VBG shows metabolic acidosis with a base excess of -24.9 - 100 mEq of sodium bicarb - stable for discharge Genitourinary LISANDRO on CKD stage 3 likely due VMN vs ATN, renal function improving CKD stage 3 Chronic Lindsay for greater than one year Nephrology on board: recommended dialysis in the next 24 hours if renal function do not improve. however patient's mother mentioned she does not want dialysis for the patient as he has been sick for the last one year and very weak We will recommend conservative management for now Infectious Disease: Severe sepsis likely due to pneumonia, UTI Pneumonia likely due to Gram +/- bacteria, possible aspiration Indwelling Lindsay's catheter long-term, UTI - broad-spectrum IV antibiotics vancomycin and meropenem, fluconazole - aggressive fluid replacement - change Lindsay catheter - Urine culture: yeast, Gram negative rods - blood cultures im -- duo nebs q.6 hours, acetylcysteine q.6 hours --> Meropenem; and Doxycycline 05/16/2025 Metabolic Hyperkalemia Hypernatremia Hypocalcemia Anion gap metabolic acidosis likely due to uremia - IV fluids; IVF D5W with two amps sodium bicarb at 100 cc/hour - Lasix IV ( not used aggressively because patient was septic low blood pressure) - hyperkalemia treatment protocols given - ABG to be obtained, VBG shows metabolic acidosis with a base excess of -24.9 - 100 mEq of sodium bicarb- Stopped Endocrine Hyperglycemia with a history of diabetes mellitus Probable starvation ketosis Severe protein calorie malnutrition Cachexia - currently patient NPO - mild ISS - D5 half NS IV fluid Hematology: Microcytic normochromic anemia Severe anemia - 1 unit of PRBC transfused 1x - Daily CBC, if less than 7 transfuse another PRBC PUD prophylaxis: Protonix DVT prophylaxis: Currently held because of low hemoglobin, SCD Plan: Stable for discharge from pulmonology stand point per primary team, the recommended G- TUBE Disposition: Telemetry Plan: Previously on hospice before coming here. To send him back to Hospice. Goals of care discussed for more than 25 minutes, Code status:DNR Case discussed with with the patient's primary RN and Dr. Reynoso Plan discussed with: Other (MOTHER) Dietary Evaluation Review Comments: 1. TPN per pharmacy to meet Pt's daily needs at 48g Protein 1000kcal, when Tube feeding is not feasible. 2. Nepro@25 ml/hr, providing 49g proteinm 1062 [id number] free water, once NG feeding becomes feasible, Start at 10ml/hr and increase 10ml Q6hr till reach the goal rate. 3. Renal standard CCHO-60 once pt can tolerate PO feedings Expected Outcomes/Goals: gradual wt gain CC Plasma Assessment Blood Product Administration S: [id number] EYAL HI RESIDENT May 20, 2025 19:35
[2025-05-21] VITALS (18 sets, daily range): BP systolic 107–159; BP diastolic 69–96; PULSE 78–95; RESP 16–20; TEMP 96.9–98.1; O2SAT 95–100
--- NOTE | 2025-05-21 07:53 | DVHPN2 ---
Progress Note - Dictate Date Seen: May 21, 2025 Medical Necessity Reason Pt with a Central, PICC or Fol: No vital signs Vital Sign Date Time Temp Pulse Resp B/P (MAP) Pulse Ox O2 Delivery O2 Flow Rate FiO2 05/21/25 04:57 98.1 87 17 107/69 (82) 97 98.1 05/21/25 00:57 Room Air 05/21/25 00:57 0 21 Total Intake and Output 05/20/25 05/20/25 05/21/25 15:00 23:00 07:00 Output Total 450 ml Balance -450 ml medications Current Medications Medications Dose Ordered Sig/Wai Route Start Time Stop Time Status Last Admin Dose Admin Nitroglycerin 0.4 mg Q5MINP PRN SL 05/09/25 23:15 Vancomycin HCl 0 ml @ 0 mls/hr UD IV 05/09/25 23:15 Cancel Pantoprazole Sodium 40 mg DAILY IV 05/10/25 10:00 05/20/25 10:05 40 MG Meropenem 50 ml @ 17 mls/hr Q12HR IV 05/10/25 22:00 05/20/25 21:42 17 MLS/HR Aspirin 81 mg DAILY PO 05/11/25 10:00 Hydralazine HCl 10 mg Q6HP PRN IV 05/12/25 06:30 05/20/25 22:11 10 MG Ceftriaxone Sodium 50 ml @ 100 mls/hr DAILY@09 IV 05/13/25 09:00 UNV Amino Acids 0 ml @ 0 mls/hr PER PHARMACY IV 05/13/25 16:45 Amino Acids/ Electrolytes/ Dextrose 1,000 ml @ 41 mls/hr DAILY@2200 IV 05/13/25 22:00 05/20/25 21:43 41 MLS/HR Diagnostic Test (Pha) 1 strip Q6HR 05/13/25 00:00 05/21/25 05:45 1 STRIP Insulin Human Regular FOLLOW SLIDING SCALE Q6HR SC 05/13/25 00:00 05/20/25 23:15 2 UNITS Dextrose 50 ml UD IV 05/13/25 00:00 Mupirocin 1 applic BID TOP 05/14/25 22:00 05/20/25 21:44 1 APPLIC Linezolid 300 ml @ 150 mls/hr Q12HR IV 05/15/25 22:00 UNV Doxycycline Hyclate 100 ml @ 50 mls/hr Q12H IV 05/16/25 17:00 05/23/25 23:59 05/21/25 04:44 50 MLS/HR Sodium Bicarbonate 75 ml/ Sodium Chloride 1,075 ml @ 50 mls/hr [id number] IV 05/18/25 14:00 05/21/25 05:44 50 MLS/HR Albuterol 2.5 mg Q6HR NEB 05/18/25 14:00 05/21/25 07:44 2.5 MG Acetylcysteine 100 mg Q6HR NEB 05/18/25 14:00 05/21/25 07:44 100 MG laboratory and microbiology Test 05/21/25 07:33 Range/Units Serum Glucose Pending Assessment/Plan Patient is a 44-year-old gentleman who presented with altered mental status/shortness of breath. He is at baseline poor historian. Information was obtained by reviewing the chart and communicating with staff. It seems that since arrival the patient was found to have severe sepsis and multiorgan dysfunction. He has been on supplemental oxygen. 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 Reportedly on arrival to Emergency room blood pressure was low on later improved. Cardiology is involved for cardiac aspects of care. There is no report of chest pain. Lying flat in bed. No JVD. Mucosa is pink and wet. Scattered rhonchi in the lungs is heard. Cardiac: Regular, tachycardic, no thrill. Systolic murmur 2/6 in apex is heard. Abdomen is soft. There is no gross mass. There is no hepatomegaly. Extremities do not reveal edema. Dorsalis pedis is 2+ bilateral Past medical history reportedly includes old history of CVA with poor functional capacity, CKD, hypertension, hyperlipidemia, diabetes mellitus, repeated history of sepsis, history of urethral stricture and recurrent UTI, history of phimosis anemia and bed-bound at baseline. There was question if the patient has baseline history of diastolic heart failure Echocardiogram of December 2024 revealed ejection fraction of 64%, trace MR/TR and right ventricular systolic pressure of 34 mm Hg. WBC: 26.7 - 20.8 - 29.9 - 29.4 - 28.9 - 21.8 - 18.4 - 16.0 - 13.0 - 7.6 Hemoglobin: 5.9 - 6.8 - 7.8 - 9.0 - 9.5 - 8.5 - 8.4 - 8.7 - 8.9 - 7.8 BNP: 528.66 - 280.34 Creatinine: 5.69 - 5.7 - 4.72 - 4.86 - 4.67 - 4.73 - 4.70 - 4.77 - 4.84 - 4.51 - 4.46 - 4.03 - 4.03 - 3.88 - 3.69 - 3.36 - 3.29 - 3.34 - 3.22 - 3.25 Potassium: 8.0 - 7.6 - 5.8 - 5.8 - 5.0 - 5.0 - 5.0 - 4.9 - 4.4 - 3.9 - 3.2 - 3.2 - 3.4 - 4.0 - 3.7 - 3.8 - 3.5 - 3.5 - 3.5 Sodium: 147 - 146 - 153 - 154 - 157 - 155 - 154 - 152 - 150 - 150 - 147 - 147 - 143 - 140 - 134 - 135 - 134 - 135 - 134 AST/ALT: 96/66 - 468/478 - 257/349 - 15/118 - 11/67 - 10/42 - 13/30 - / - 09/05 Troponin (high sensitive): 81 - 89 - 92 Chest x-ray reported: IMPRESSION: Findings suggest a mild degree of pulmonary ed alex which is decreased compared to the prior study on 01/11/2025. Pneumonia is considered less likely Repeat chest xry revealed: IMPRESSION: 1. No interval change. Repeat chest xry revealed: 1. Increase in patchy and confluent bilateral airspace opacities which could reflect worsening multifocal pneumonia and/or pulmonary edema. 2. Probable bilateral pleural effusions, greater on the left. Repeat chest xry revealed: IMPRESSION: Improving multifocal pneumonia. Renal ultrasound reported: IMPRESSION: Bilateral medical renal disease. EKG revealed sinus tachycardia Tele shows sinus tachycardia Echocardiogram revealed: Left ventricle: Mild diffuse hypokinesis of left ventricle was seen. LVEF was around 50%. Right ventricle was normal size with mildly reduced systolic function. Both atria were normal size. Aortic valve was trileaflet. There was no aortic insufficiency/stenosis. There was mild mitral/tricuspid regurgitation. There was no pulmonary valve insufficiency. Right ventricular systolic pressure was assessed at 35 mm Hg. There was trace pericardial effusion. Patient is a 44-year-old gentleman who was at baseline bed-bound with old history of CVA who presented with altered mental status and shortness of breath. Presentation is in favor acute respiratory failure secondary to sepsis. Multiorgan failure secondary to sepsis is considered. Minimal increase in troponin is considered to reflect demand ischemia in a patient with questionable history of diastolic heart failure. In December 2024 ejection fraction in echocardiogram was 64% with no specific increase in right ventricular systolic pressure. Acute respiratory failure Sepsis Encephalopathy, metabolic versus toxic LISANDRO on CKD ATN Demand ischemia Hypernatremia Hypokalemia Anemia Cardiac suggestion for management: Manage in tele Fluid resuscitation as per Nephrology Follow-up electrolytes and kidney function tests and correct abnormalities Aspirin: 81 mg daily with old history of CVA is suggested DVT prophylaxis as per primary team Has failed swallowing evaluation Cardiac ramirez, patient is moderate risk patient for low to moderate risk EGD/PEG placement. Cardiac ramirez, you can proceed with the EGD/PEG placement under appropriate intra and post operative hemodynamic monitoring. Avoid Hypotension. Management of sepsis/infection as per primary team Pulmonary follow-up Nephrology follow up Recognizing co-morbidities, prognosis is gaurded. Further evaluation and management depends on the above and clinical course A total of 55 minutes was spent reviewing the patient record, examining the patient, making a diagnostic and therapeutic plan, discussing this plan with medical personnel, following up on diagnostic studies and following the patient for clinical stability excluding any and all procedures. At least 50% of this time was spent in direct, [id number] contact. Thank you for allowing me to participate in this patient's care. Further recommendations will depend on patient's clinical course. Please do not hesitate to contact me if you have any questions or concerns. This medical document was created using electronic medical record system with [facility] computerized dictation system. Although this document has been carefully reviewed, there may still be some phonetic and typographical errors. These areas are purely typographical due to the imperfection of the software programs, and do not reflect any compromise in the patient's medical care. Dietary Evaluation Review Comments: 1. TPN per pharmacy to meet Pt's daily needs at 48g Protein 1000kcal, when Tube feeding is not feasible. 2. Nepro@25 ml/hr, providing 49g proteinm 1062 [id number] free water, once NG feeding becomes feasible, Start at 10ml/hr and increase 10ml Q6hr till reach the goal rate. 3. Renal standard CCHO-60 once pt can tolerate PO feedings Expected Outcomes/Goals: gradual wt gain Plan discussed with: Other (nurse) CC Plasma Assessment Blood Product Administration S: [id number] FAN HAMEED MD May 21, 2025 07:53
[2025-05-21 08:02] LABS: Hematocrit 23.5 % (41.0-53.0); Hemoglobin 7.8 g/dL (13.5-17.5); Nucleated Red Blood Cells % 0.1 %
[2025-05-21 08:04] LABS: Mean Corpuscular Hemoglobin 29.2 pg (28.0-32.0); Mean Corpuscular Volume 87.7 fL (80.0-100.0)
--- NOTE | 2025-05-21 08:04 | DVHPN2 ---
Progress Note - Dictate Date Seen: May 21, 2025 Medical Necessity Reason Pt with a Central, PICC or Fol: No vital signs Vital Sign Date Time Temp Pulse Resp B/P (MAP) Pulse Ox O2 Delivery O2 Flow Rate FiO2 05/21/25 07:44 97 Room Air* 0 21 05/21/25 07:44 83 18 05/21/25 04:57 98.1 107/69 (82) 98.1 Total Intake and Output 05/20/25 05/20/25 05/21/25 15:00 23:00 07:00 Output Total 450 ml Balance -450 ml medications Current Medications Medications Dose Ordered Sig/Wai Route Start Time Stop Time Status Last Admin Dose Admin Nitroglycerin 0.4 mg Q5MINP PRN SL 05/09/25 23:15 Vancomycin HCl 0 ml @ 0 mls/hr UD IV 05/09/25 23:15 Cancel Pantoprazole Sodium 40 mg DAILY IV 05/10/25 10:00 05/20/25 10:05 40 MG Meropenem 50 ml @ 17 mls/hr Q12HR IV 05/10/25 22:00 05/20/25 21:42 17 MLS/HR Aspirin 81 mg DAILY PO 05/11/25 10:00 Hydralazine HCl 10 mg Q6HP PRN IV 05/12/25 06:30 05/20/25 22:11 10 MG Ceftriaxone Sodium 50 ml @ 100 mls/hr DAILY@09 IV 05/13/25 09:00 UNV Amino Acids 0 ml @ 0 mls/hr PER PHARMACY IV 05/13/25 16:45 Amino Acids/ Electrolytes/ Dextrose 1,000 ml @ 41 mls/hr DAILY@2200 IV 05/13/25 22:00 05/20/25 21:43 41 MLS/HR Diagnostic Test (Pha) 1 strip Q6HR 05/13/25 00:00 05/21/25 05:45 1 STRIP Insulin Human Regular FOLLOW SLIDING SCALE Q6HR SC 05/13/25 00:00 05/20/25 23:15 2 UNITS Dextrose 50 ml UD IV 05/13/25 00:00 Mupirocin 1 applic BID TOP 05/14/25 22:00 05/20/25 21:44 1 APPLIC Linezolid 300 ml @ 150 mls/hr Q12HR IV 05/15/25 22:00 UNV Doxycycline Hyclate 100 ml @ 50 mls/hr Q12H IV 05/16/25 17:00 05/23/25 23:59 05/21/25 04:44 50 MLS/HR Sodium Bicarbonate 75 ml/ Sodium Chloride 1,075 ml @ 50 mls/hr [id number] IV 05/18/25 14:00 05/21/25 05:44 50 MLS/HR Albuterol 2.5 mg Q6HR NEB 05/18/25 14:00 05/21/25 07:44 2.5 MG Acetylcysteine 100 mg Q6HR NEB 05/18/25 14:00 05/21/25 07:44 100 MG objective General Appearance: alert, no distress HEENT: EOMI, PERRLA, normal external inspect of ears, no icterus, no nasal drainage Neck: no carotid bruit, no jugular venous distention (JVD), no lymphadenopathy Chest: normal thorax Respiratory: clear to auscultation, normal air movement Cardiovascular: regular rate and rhythm, no diastolic murmur, no jugular venous distention (JVD), no rub, no systolic murmur Abdominal: soft, no hepatomegaly, no mass, no splenomegaly, no tenderness Genitourinary: grossly normal external Musculoskeletal: no joint tenderness, no swelling Extremities: normal pulses, no calf tenderness, no clubbing, no cyanosis, no e kali Skin: no bruising, no jaundice, no rash Neurological: alert, No focal deficit laboratory and microbiology Test 05/21/25 07:33 Range/Units Serum Glucose Pending Problem List 1. Sepsis IV Abx 2. Acute on chronic anemia Medications, Monitoring 3. LISANDRO with CKD 3b Nephrology consult 4. Bed bound Monitoring 5. CVA with residual deficits Monitoring 6. NSTEMI II, demand ischemia Cardiology consult, monitor EKG 7. MRSA w/ Nares Medications, Monitoring 8. Hyperkalemia r/t LISANDRO Hyperkalemia Tx 9. Hypoglycemia Medications, Monitoring Assessment/Plan Subjective: Patient is lethargic, however mother states patient did wake up this morning and was combative. Objective: Patient was admitted for a metabolic encephalopathy. Patient has a history of CVA and is bedbound. Patient has an LISANDRO superimposed on CKD. Now at baseline GI has been consulted for possible PEG tube. Patient is pending repeat swallow eval now that he is more awake. Plan: Continue current treatment. Patient chest X-ray shows worsening pneumonia. Start chest physiotherapy. Continue antibiotics. DC IV fluids. Start Lasix. Dietary Evaluation Review Comments: 1. TPN per pharmacy to meet Pt's daily needs at 48g Protein 1000kcal, when Tube feeding is not feasible. 2. Nepro@25 ml/hr, providing 49g proteinm 1062 [id number] free water, once NG feeding becomes feasible, Start at 10ml/hr and increase 10ml Q6hr till reach the goal rate. 3. Renal standard CCHO-60 once pt can tolerate PO feedings Expected Outcomes/Goals: gradual wt gain Plan discussed with: Patient, Other CC Plasma Assessment Blood Product Administration S: [id number] RAÚL STEEL NP May 21, 2025 08:03
[2025-05-21 08:18] LABS: Alanine Aminotransferase 12 U/L (7-40); Anion Gap 11 (5-15); BUN/Creatinine Ratio 35.7 (10.0-20.0); Carbon Dioxide 21 mmol/L (20-31); Chloride 102 mmol/L (98-107); Magnesium 1.8 mg/dL (1.6-2.6); Potassium 3.5 mmol/L (3.5-5.1)
[2025-05-21 08:19] LABS: Albumin 2.3 g/dL (3.2-4.8); Alkaline Phosphatase 197 U/L (46-116); Calcium 7.8 mg/dL (8.7-10.4); Glucose 52 mg/dL (74-106); Sodium 134 mmol/L (136-145); Total Protein 5.4 g/dL (5.7-8.2)
[2025-05-21 08:21] LABS: Bilirubin, Total < 0.2 mg/dL (0.2-1.0); Blood Urea Nitrogen 116 mg/dL (9-23)
--- NOTE | 2025-05-21 09:41 | DVH ---
CHEST RADIOGRAPH Indication: F/U PNA Technique: Single frontal view of the chest was obtained COMPARISON: 05/19/2025 FINDINGS: The cardiac silhouette is enlarged. The lungs demonstrate bilateral patchy airspace opacities. The pu lmonary vasculature is prominent. Moderate left and small right pleural effusions. There is no pneumo thorax. IMPRESSION: Cardiomegaly with pulmonary vascular congestion and bilateral patchy airspace opacities, significantl y worsened. Moderate left and small right pleural effusions.
--- NOTE | 2025-05-21 11:43 | DVH ---
CT STROKE CTH Indication: Stroke EXAM DATE: 05/21/2025 11:05 AM COMPARISON: None TECHNIQUE: CT of the head without intravenous contrast. RADIATION DOSE: CTDIvol: 54.45 mGy, DLP: 1509.39 mGy*cm FINDINGS: There is no intracranial hemorrhage. There is no extra-axial fluid, mass, mass effect or midline shif t. The ventricles are midline and normal in size. Basilar cisterns are patent. There are advanced per iventricular and subcortical white matter chronic microvascular ischemic changes. Old bilateral basal ganglia lacunar infarcts. Old bilateral subinsular infarcts. Old left centrum semiovale infarction. Moderate global cerebral volume loss. Large right mastoid effusion. Mucosal thickening of the ethmoids, left maxillary sinus.. Imaged port ion of the orbits are unremarkable. IMPRESSION: No intracranial hemorrhage or mass effect. Advanced chronic microvascular ischemic changes with old infarcts as described. Large right mastoid effusion.
[2025-05-21] MEDS: FUROSEMIDE 40 MG/4 ML VIAL IV SCH (11:59)
--- NOTE | 2025-05-21 18:44 | DVHPN2 ---
Progress Note Date Seen: May 21, 2025 Medical Necessity Reason Pt with a Central, PICC or Fol: No Subjective Patient reports: No new complaints (mom bedside) Review of Systems: Deferred Objective vital signs Vital Sign Date Time Temp Pulse Resp B/P (MAP) Pulse Ox O2 Delivery O2 Flow Rate FiO2 05/21/25 18:30 85 18 100 05/21/25 17:50 159/96 05/21/25 17:00 97.7 97.7 05/21/25 12:43 Room Air 0.0 05/21/25 12:43 21 Total Intake and Output 05/20/25 05/20/25 05/21/25 15:00 23:00 07:00 Output Total 450 ml Balance -450 ml medications Current Medications Medications Dose Ordered Sig/Wai Route Start Time Stop Time Status Last Admin Dose Admin Nitroglycerin 0.4 mg Q5MINP PRN SL 05/09/25 23:15 Vancomycin HCl 0 ml @ 0 mls/hr UD IV 05/09/25 23:15 Cancel Pantoprazole Sodium 40 mg DAILY IV 05/10/25 10:00 05/21/25 10:32 40 MG Aspirin 81 mg DAILY PO 05/11/25 10:00 Hydralazine HCl 10 mg Q6HP PRN IV 05/12/25 06:30 05/20/25 22:11 10 MG Ceftriaxone Sodium 50 ml @ 100 mls/hr DAILY@09 IV 05/13/25 09:00 UNV Amino Acids 0 ml @ 0 mls/hr PER PHARMACY IV 05/13/25 16:45 Amino Acids/ Electrolytes/ Dextrose 1,000 ml @ 41 mls/hr DAILY@2200 IV 05/13/25 22:00 05/20/25 21:43 41 MLS/HR Diagnostic Test (Pha) 1 strip Q6HR 05/13/25 00:00 05/21/25 17:34 1 STRIP Insulin Human Regular FOLLOW SLIDING SCALE Q6HR SC 05/13/25 00:00 05/20/25 23:15 2 UNITS Dextrose 50 ml UD IV 05/13/25 00:00 Mupirocin 1 applic BID TOP 05/14/25 22:00 05/21/25 10:00 1 APPLIC Linezolid 300 ml @ 150 mls/hr Q12HR IV 05/15/25 22:00 UNV Albuterol 2.5 mg Q6HR NEB 05/18/25 14:00 05/21/25 18:26 2.5 MG Acetylcysteine 100 mg Q6HR NEB 05/18/25 14:00 05/21/25 18:25 100 MG Furosemide 40 mg BIDD IV 05/21/25 10:45 05/21/25 17:50 40 MG Examination: GENERAL:Abnormal, MSK:Abnormal, NEURO:Normal laboratory and microbiology Laboratory Tests 05/21/25 07:33 Test 05/21/25 07:33 Range/Units Serum Glucose 52 L 74-106 mg/dL Microbiology Date/Time Source Procedure Growth Status 05/11/25 23:45 Voided Urine Urine Culture - Final Yeast, not Diana albicans Complete 05/10/25 02:49 Nose MRSA Screen - Final Methicillin Resistant S.aureus Complete 05/09/25 19:30 Blood Blood Culture - Final NO GROWTH AFTER 5 DAYS OF INCUBATION. Complete Problem List/Assessment/Plan Problem List/Assessment/Plan Acute kidney injury likely acute tubular necrosis in the setting of severe sepsis Severe sepsis Metabolic acidosis Encephalopathy Hypernatremia Hyperkalemia Hypocalcemia Chronic Lindsay for greater than one year Multiple admissions in the past one year Previously on hospice before coming here Recommendations on lasix iv bid ivf held stable renal function d/w mom Plan discussed with: Patient, Other Dietary Evaluation Review Comments: 1. TPN per pharmacy to meet Pt's daily needs at 48g Protein 1000kcal, when Tube feeding is not feasible. 2. Nepro@25 ml/hr, providing 49g proteinm 1062 [id number] free water, once NG feeding becomes feasible, Start at 10ml/hr and increase 10ml Q6hr till reach the goal rate. 3. Renal standard CCHO-60 once pt can tolerate PO feedings Expected Outcomes/Goals: gradual wt gain CC Plasma Assessment Blood Product Administration S: [id number] ROSE BROWNLEE MD May 21, 2025 18:44
--- NOTE | 2025-05-21 19:30 | DVHPN2 ---
Progress Note - Dictate Date Seen: May 21, 2025 Medical Necessity Reason Pt with a Central, PICC or Fol: No Subjective 44-year-old gentleman who was at baseline bed-bound with old history of CVA who presented with altered mental status and shortness of breath. Multiorgan failure secondary to sepsis is considered. Minimal increase in troponin is considered to reflect demand ischemia in a patient with questionable history of diastolic heart failure; EF 64% Patient failed 2nd swallow evaluation vital signs Vital Sign Date Time Temp Pulse Resp B/P (MAP) Pulse Ox O2 Delivery O2 Flow Rate FiO2 05/21/25 18:35 83 18 100 05/21/25 17:50 159/96 05/21/25 17:00 97.7 97.7 05/21/25 12:43 Room Air 0.0 05/21/25 12:43 21 Total Intake and Output 05/20/25 05/20/25 05/21/25 15:00 23:00 07:00 Output Total 450 ml Balance -450 ml medications Current Medications Medications Dose Ordered Sig/Wai Route Start Time Stop Time Status Last Admin Dose Admin Nitroglycerin 0.4 mg Q5MINP PRN SL 05/09/25 23:15 Vancomycin HCl 0 ml @ 0 mls/hr UD IV 05/09/25 23:15 Cancel Pantoprazole Sodium 40 mg DAILY IV 05/10/25 10:00 05/21/25 10:32 40 MG Aspirin 81 mg DAILY PO 05/11/25 10:00 Hydralazine HCl 10 mg Q6HP PRN IV 05/12/25 06:30 05/20/25 22:11 10 MG Ceftriaxone Sodium 50 ml @ 100 mls/hr DAILY@09 IV 05/13/25 09:00 UNV Amino Acids 0 ml @ 0 mls/hr PER PHARMACY IV 05/13/25 16:45 Amino Acids/ Electrolytes/ Dextrose 1,000 ml @ 41 mls/hr DAILY@2200 IV 05/13/25 22:00 05/20/25 21:43 41 MLS/HR Diagnostic Test (Pha) 1 strip Q6HR 05/13/25 00:00 05/21/25 17:34 1 STRIP Insulin Human Regular FOLLOW SLIDING SCALE Q6HR SC 05/13/25 00:00 05/20/25 23:15 2 UNITS Dextrose 50 ml UD IV 05/13/25 00:00 Mupirocin 1 applic BID TOP 05/14/25 22:00 05/21/25 10:00 1 APPLIC Linezolid 300 ml @ 150 mls/hr Q12HR IV 05/15/25 22:00 UNV Albuterol 2.5 mg Q6HR NEB 05/18/25 14:00 05/21/25 18:26 2.5 MG Acetylcysteine 100 mg Q6HR NEB 05/18/25 14:00 05/21/25 18:25 100 MG Furosemide 40 mg BIDD IV 05/21/25 10:45 05/21/25 17:50 40 MG objective General: NAD, patient is resting Chest: lung perez clear to auscultation Heart: RRR, no murmur Abdomen: non-distended, no tenderness to palpation, +BS laboratory and microbiology Laboratory Tests 05/21/25 07:33 Test 05/21/25 07:33 Range/Units Serum Glucose 52 L 74-106 mg/dL Problems(with codes): (1) Atypical pneumonia (2) Sepsis (3) Metabolic encephalopathy (4) UTI (urinary tract infection) (5) Acute renal failure (6) Acute prerenal azotemia Prognosis Plan Patient failed swallow evaluation again today and he is still NPO Patient will likely need a PEG tube placement by next week if he is not able to swallow Hold blood thinners and monitor labs Dietary Evaluation Review Comments: 1. TPN per pharmacy to meet Pt's daily needs at 48g Protein 1000kcal, when Tube feeding is not feasible. 2. Nepro@25 ml/hr, providing 49g proteinm 1062 [id number] free water, once NG feeding becomes feasible, Start at 10ml/hr and increase 10ml Q6hr till reach the goal rate. 3. Renal standard CCHO-60 once pt can tolerate PO feedings Expected Outcomes/Goals: gradual wt gain Plan discussed with: Other (Nurse) CC Plasma Assessment Blood Product Administration S: [id number] CHANTE PALMER MD May 21, 2025 19:30
--- NOTE | 2025-05-21 19:43 | DVHPNRES ---
Progress Note Date Seen: May 21, 2025 Resident Creating Document: EYAL HI Medical Necessity Reason Pt with a Central, PICC or Fol: No Medical Necessity Reason Patient seen. Stable. Currently pending PEG by GI. Subjective Review of Systems Unable to assess Objective vital signs Vital Sign Date Time Temp Pulse Resp B/P (MAP) Pulse Ox O2 Delivery O2 Flow Rate FiO2 05/21/25 18:35 83 18 100 05/21/25 17:50 159/96 05/21/25 17:00 97.7 97.7 05/21/25 12:43 Room Air 0.0 05/21/25 12:43 21 Total Intake and Output 05/20/25 05/20/25 05/21/25 15:00 23:00 07:00 Output Total 450 ml Balance -450 ml medications Current Medications Medications Dose Ordered Sig/Wai Route Start Time Stop Time Status Last Admin Dose Admin Nitroglycerin 0.4 mg Q5MINP PRN SL 05/09/25 23:15 Vancomycin HCl 0 ml @ 0 mls/hr UD IV 05/09/25 23:15 Cancel Pantoprazole Sodium 40 mg DAILY IV 05/10/25 10:00 05/21/25 10:32 40 MG Aspirin 81 mg DAILY PO 05/11/25 10:00 Hydralazine HCl 10 mg Q6HP PRN IV 05/12/25 06:30 05/20/25 22:11 10 MG Ceftriaxone Sodium 50 ml @ 100 mls/hr DAILY@09 IV 05/13/25 09:00 UNV Amino Acids 0 ml @ 0 mls/hr PER PHARMACY IV 05/13/25 16:45 Amino Acids/ Electrolytes/ Dextrose 1,000 ml @ 41 mls/hr DAILY@2200 IV 05/13/25 22:00 05/20/25 21:43 41 MLS/HR Diagnostic Test (Pha) 1 strip Q6HR 05/13/25 00:00 05/21/25 17:34 1 STRIP Insulin Human Regular FOLLOW SLIDING SCALE Q6HR SC 05/13/25 00:00 05/20/25 23:15 2 UNITS Dextrose 50 ml UD IV 05/13/25 00:00 Mupirocin 1 applic BID TOP 05/14/25 22:00 05/21/25 10:00 1 APPLIC Linezolid 300 ml @ 150 mls/hr Q12HR IV 05/15/25 22:00 UNV Albuterol 2.5 mg Q6HR NEB 05/18/25 14:00 05/21/25 18:26 2.5 MG Acetylcysteine 100 mg Q6HR NEB 05/18/25 14:00 05/21/25 18:25 100 MG Furosemide 40 mg BIDD IV 05/21/25 10:45 05/21/25 17:50 40 MG Examination General Appearance: awake, confused improving, Cachectic HEENT: conjunctival pallor seen, no icterus, no cyanosis, Respiratory: Clear to auscultation, Normal air movement on ROOM AIR Cardiovascular: Regular rate, Normal S1, Normal S2, No murmurs, no chest wall tenderness Abdominal: NO distention, no tenderness, bowel sounds present, no scars noted; for PEG next week by GI Extremities: muscle wasting Skin: Dry; No rashes, No breakdown, No significant lesion Neuro: bed-bound Psych/Mental Status: nonverbal laboratory and microbiology Laboratory Tests 05/21/25 07:33 Test 05/21/25 07:33 Range/Units Serum Glucose 52 L 74-106 mg/dL Microbiology Date/Time Source Procedure Growth Status 05/11/25 23:45 Voided Urine Urine Culture - Final Yeast, not Diana albicans Complete 05/10/25 02:49 Nose MRSA Screen - Final Methicillin Resistant S.aureus Complete 05/09/25 19:30 Blood Blood Culture - Final NO GROWTH AFTER 5 DAYS OF INCUBATION. Complete Problem List/Assessment/Plan Problem List/Assessment/Plan Assessment/Plan Neuro: Acute metabolic encephalopathy likely due to sepsis, uremia H/o CVA - IV antibiotics,See below - IV fluids Cardiovascular NSTEMI likely type 2 due to demand ischemia - echo from December 2024 shows LVEF 64% Respiratory Acute hypoxemic respiratory failure, POA - CXR: Findings suggest a mild degree of pulmonary edema which is decreased compared to the prior study on 01/11/2025. Pneumonia is considered less likely. - 2L of oxygen - ABG, VBG shows metabolic acidosis with a base excess of -24.9 - 100 mEq of sodium bicarb - stable for discharge Genitourinary LISANDRO on CKD stage 3 likely due VMN vs ATN, renal function improving CKD stage 3 Chronic Lindsay for greater than one year Nephrology on board: recommended dialysis in the next 24 hours if renal function do not improve. however patient's mother mentioned she does not want dialysis for the patient as he has been sick for the last one year and very weak We will recommend conservative management for now Infectious Disease: Severe sepsis likely due to pneumonia, UTI Pneumonia likely due to Gram +/- bacteria, possible aspiration Indwelling Lindsay's catheter long-term, UTI - broad-spectrum IV antibiotics vancomycin and meropenem, fluconazole - aggressive fluid replacement - change Lindsay catheter - Urine culture: yeast, Gram negative rods - blood cultures im -- duo nebs q.6 hours, acetylcysteine q.6 hours --> Meropenem; and Doxycycline 05/16/2025 Metabolic Hyperkalemia Hypernatremia Hypocalcemia Anion gap metabolic acidosis likely due to uremia - IV fluids; IVF D5W with two amps sodium bicarb at 100 cc/hour - Lasix IV ( not used aggressively because patient was septic low blood pressure) - hyperkalemia treatment protocols given - ABG to be obtained, VBG shows metabolic acidosis with a base excess of -24.9 - 100 mEq of sodium bicarb- Stopped Endocrine Hyperglycemia with a history of diabetes mellitus Probable starvation ketosis Severe protein calorie malnutrition Cachexia - currently patient NPO - mild ISS - D5 half NS IV fluid Hematology: Microcytic normochromic anemia Severe anemia - 1 unit of PRBC transfused 1x - Daily CBC, if less than 7 transfuse another PRBC PUD prophylaxis: Protonix DVT prophylaxis: Currently held because of low hemoglobin, SCD Plan: Stable for discharge from pulmonology stand point per primary team, the recommended G- TUBE Pulmonary will sign off. Discharge planning per primary team. Thank you for allowing me to be part of his care. Disposition: Telemetry Plan: Previously on hospice before coming here. To send him back to Hospice. Goals of care discussed for more than 25 minutes, Code status:DNR Case discussed with with the patient's primary RN and Dr. Reynoso Plan discussed with: Other (mother) Dietary Evaluation Review Comments: 1. TPN per pharmacy to meet Pt's daily needs at 48g Protein 1000kcal, when Tube feeding is not feasible. 2. Nepro@25 ml/hr, providing 49g proteinm 1062 [id number] free water, once NG feeding becomes feasible, Start at 10ml/hr and increase 10ml Q6hr till reach the goal rate. 3. Renal standard CCHO-60 once pt can tolerate PO feedings Expected Outcomes/Goals: gradual wt gain CC Plasma Assessment Blood Product Administration S: [id number] EYAL HI RESIDENT May 21, 2025 19:43
[2025-05-22] VITALS (18 sets, daily range): BP systolic 116–171; BP diastolic 70–89; PULSE 71–100; RESP 16–21; TEMP 97.1–98.5; O2SAT 95–100
[2025-05-22 08:05] LABS: Alanine Aminotransferase 10 U/L (7-40); Anion Gap 15 (5-15); BUN/Creatinine Ratio 35.2 (10.0-20.0); Chloride 101 mmol/L (98-107); Glucose 106 mg/dL (74-106); Magnesium 1.8 mg/dL (1.6-2.6)
[2025-05-22 08:19] LABS: Carbon Dioxide 18 mmol/L (20-31); Potassium 3.5 mmol/L (3.5-5.1); Sodium 134 mmol/L (136-145)
[2025-05-22 08:21] LABS: Albumin 2.4 g/dL (3.2-4.8); Alkaline Phosphatase 194 U/L (46-116); Bilirubin, Total 0.2 mg/dL (0.2-1.0); Blood Urea Nitrogen 117 mg/dL (9-23); Calcium 8.0 mg/dL (8.7-10.4); Total Protein 5.6 g/dL (5.7-8.2)
--- NOTE | 2025-05-22 10:11 | DVHPN2 ---
Progress Note - Dictate Date Seen: May 22, 2025 Medical Necessity Reason Pt with a Central, PICC or Fol: No vital signs Vital Sign Date Time Temp Pulse Resp B/P (MAP) Pulse Ox O2 Delivery O2 Flow Rate FiO2 05/22/25 09:00 97.5 88 21 143/86 (105) 95 97.5 05/22/25 08:00 Room Air* 0 21 Total Intake and Output 05/21/25 05/21/25 05/22/25 15:00 23:00 07:00 Intake Total 820 ml Balance 820 ml medications Current Medications Medications Dose Ordered Sig/Wai Route Start Time Stop Time Status Last Admin Dose Admin Nitroglycerin 0.4 mg Q5MINP PRN SL 05/09/25 23:15 Vancomycin HCl 0 ml @ 0 mls/hr UD IV 05/09/25 23:15 Cancel Pantoprazole Sodium 40 mg DAILY IV 05/10/25 10:00 05/21/25 10:32 40 MG Aspirin 81 mg DAILY PO 05/11/25 10:00 Hydralazine HCl 10 mg Q6HP PRN IV 05/12/25 06:30 05/20/25 22:11 10 MG Ceftriaxone Sodium 50 ml @ 100 mls/hr DAILY@09 IV 05/13/25 09:00 UNV Amino Acids 0 ml @ 0 mls/hr PER PHARMACY IV 05/13/25 16:45 Amino Acids/ Electrolytes/ Dextrose 1,000 ml @ 41 mls/hr DAILY@2200 IV 05/13/25 22:00 05/21/25 21:24 41 MLS/HR Diagnostic Test (Pha) 1 strip Q6HR 05/13/25 00:00 05/22/25 05:56 1 STRIP Insulin Human Regular FOLLOW SLIDING SCALE Q6HR SC 05/13/25 00:00 05/20/25 23:15 2 UNITS Dextrose 50 ml UD IV 05/13/25 00:00 Mupirocin 1 applic BID TOP 05/14/25 22:00 05/21/25 21:24 1 APPLIC Linezolid 300 ml @ 150 mls/hr Q12HR IV 05/15/25 22:00 UNV Albuterol 2.5 mg Q6HR NEB 05/18/25 14:00 05/22/25 06:36 2.5 MG Acetylcysteine 100 mg Q6HR NEB 05/18/25 14:00 05/22/25 06:36 100 MG Furosemide 40 mg BIDD IV 05/21/25 10:45 05/22/25 05:51 40 MG laboratory and microbiology Laboratory Tests 05/22/25 06:48 05/21/25 07:33 Test 05/22/25 06:48 Range/Units Serum Glucose 106 74-106 mg/dL Assessment/Plan Patient is a 44-year-old gentleman who presented with altered mental status/shortness of breath. He is at baseline poor historian. Information was obtained by reviewing the chart and communicating with staff. It seems that since arrival the patient was found to have severe sepsis and multiorgan dysfunction. He has been on supplemental oxygen. 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 Reportedly on arrival to Emergency room blood pressure was low on later improved. Cardiology is involved for cardiac aspects of care. There is no report of chest pain. Lying flat in bed. No JVD. Mucosa is pink and wet. Scattered rhonchi in the lungs is heard. Cardiac: Regular, tachycardic, no thrill. Systolic murmur 2/6 in apex is heard. Abdomen is soft. There is no gross mass. There is no hepatomegaly. Extremities do not reveal edema. Dorsalis pedis is 2+ bilateral Past medical history reportedly includes old history of CVA with poor functional capacity, CKD, hypertension, hyperlipidemia, diabetes mellitus, repeated history of sepsis, history of urethral stricture and recurrent UTI, history of phimosis anemia and bed-bound at baseline. There was question if the patient has baseline history of diastolic heart failure Echocardiogram of December 2024 revealed ejection fraction of 64%, trace MR/TR and right ventricular systolic pressure of 34 mm Hg. WBC: 26.7 - 20.8 - 29.9 - 29.4 - 28.9 - 21.8 - 18.4 - 16.0 - 13.0 - 7.6 Hemoglobin: 5.9 - 6.8 - 7.8 - 9.0 - 9.5 - 8.5 - 8.4 - 8.7 - 8.9 - 7.8 BNP: 528.66 - 280.34 Creatinine: 5.69 - 5.7 - 4.72 - 4.86 - 4.67 - 4.73 - 4.70 - 4.77 - 4.84 - 4.51 - 4.46 - 4.03 - 4.03 - 3.88 - 3.69 - 3.36 - 3.29 - 3.34 - 3.22 - 3.25 - 3.32 Potassium: 8.0 - 7.6 - 5.8 - 5.8 - 5.0 - 5.0 - 5.0 - 4.9 - 4.4 - 3.9 - 3.2 - 3.2 - 3.4 - 4.0 - 3.7 - 3.8 - 3.5 - 3.5 - 3.5 - 3.5 Sodium: 147 - 146 - 153 - 154 - 157 - 155 - 154 - 152 - 150 - 150 - 147 - 147 - 143 - 140 - 134 - 135 - 134 - 135 - 134 - 134 AST/ALT: 96/66 - 468/478 - 257/349 - 15/118 - 11/67 - 10/42 - 13/30 - 11/24 - 10/12 - 08/04 Troponin (high sensitive): 81 - 89 - 92 Chest x-ray reported: IMPRESSION: Findings suggest a mild degree of pulmonary edema which is decreased compared to the prior study on 01/11/2025. Pneumonia is considered less likely Repeat chest xry revealed: IMPRESSION: 1. No interval change. Repeat chest xry revealed: 1. Increase in patchy and confluent bilateral airspace opacities which could reflect worsening multifocal pneumonia and/or pulmonary edema. 2. Probable bilateral pleural effusions, greater on the left. Repeat chest xry revealed: IMPRESSION: Improving multifocal pneumonia. Repeat chest xry revealed: IMPRESSION: Cardiomegaly with pulmonary vascular congestion and bilateral patchy airspace opacities, significantly worsened. Moderate left and small right pleural effusions. CT of Head revealed: IMPRESSION: No intracranial hemorrhage or mass effect. Advanced chronic microvascular ischemic changes with old infarcts as described. Large right mastoid effusion. Renal ultrasound reported: IMPRESSION: Bilateral medical renal disease. EKG revealed sinus tachycardia Tele shows sinus tachycardia Echocardiogram revealed: Left ventricle: Mild diffuse hypokinesis of left ventricle was seen. LVEF was around 50%. Right ventricle was normal size with mildly reduced systolic function. Both atria were normal size. Aortic valve was trileaflet. There was no aortic insufficiency/stenosis. There was mild mitral/tricuspid regurgitation. There was no pulmonary valve insufficiency. Right ventricular systolic pressure was assessed at 35 mm Hg. There was trace pericardial effusion. Patient is a 44-year-old gentleman who was at baseline bed-bound with old history of CVA who presented with altered mental status and shortness of breath. Presentation is in favor acute respiratory failure secondary to sepsis. Multiorgan failure secondary to sepsis is considered. Minimal increase in troponin is considered to reflect demand ischemia in a patient with questionable history of diastolic heart failure. In December 2024 ejection fraction in echocardiogram was 64% with no specific increase in right ventricular systolic pressure. Acute respiratory failure Sepsis Encephalopathy, metabolic versus toxic LISANDRO on CKD ATN Demand ischemia Hypernatremia Hypokalemia Anemia Cardiac suggestion for management: Manage in tele Fluid resuscitation as per Nephrology Follow-up electrolytes and kidney function tests and correct abnormalities Aspirin: 81 mg daily with old history of CVA is suggested DVT prophylaxis as per primary team Has failed swallowing evaluation Cardiac ramirez, patient is moderate risk patient for low to moderate risk EGD/PEG placement. Cardiac ramirez, you can proceed with the EGD/PEG placement under appropriate intra and post operative hemodynamic monitoring. Avoid Hypotension. Management of sepsis/infection as per primary team Pulmonary follow-up Nephrology follow up Recognizing co-morbidities, prognosis is gaurded. Further evaluation and management depends on the above and clinical course A total of 55 minutes was spent reviewing the patient record, examining the patient, making a diagnostic and therapeutic plan, discussing this plan with medical personnel, following up on diagnostic studies and following the patient for clinical stability excluding any and all procedures. At least 50% of this time was spent in direct, [id number] contact. Thank you for allowing me to participate in this patient's care. Further recommendations will depend on patient's clinical course. Please do not hesitate to contact me if you have any questions or concerns. This medical document was created using electronic medical record system with [employer] dictation system. Although this document has been carefully reviewed, there may still be some phonetic and typographical errors. These areas are purely typographical due to the imperfection of the software programs, and do not reflect any compromise in the patient's medical care. Dietary Evaluation Review Comments: 1. TPN per pharmacy to meet Pt's daily needs at 48g Protein 1000kcal, when Tube feeding is not feasible. 2. Nepro@25 ml/hr, providing 49g proteinm 1062 [id number] free water, once NG feeding becomes feasible, Start at 10ml/hr and increase 10ml Q6hr till reach the goal rate. 3. Renal standard CCHO-60 once pt can tolerate PO feedings Expected Outcomes/Goals: gradual wt gain Plan discussed with: Other CC Plasma Assessment Blood Product Administration S: [id number] FAN HAMEED MD May 22, 2025 10:11
--- NOTE | 2025-05-22 11:52 | DVHPN2 ---
Progress Note - Dictate Date Seen: May 22, 2025 Medical Necessity Reason Pt with a Central, PICC or Fol: No vital signs Vital Sign Date Time Temp Pulse Resp B/P (MAP) Pulse Ox O2 Delivery O2 Flow Rate FiO2 05/22/25 11:49 81 18 100 05/22/25 11:44 Room Air 0.0 05/22/25 11:44 21 05/22/25 09:00 97.5 143/86 (105) 97.5 Total Intake and Output 05/21/25 05/21/25 05/22/25 15:00 23:00 07:00 Intake Total 820 ml Balance 820 ml medications Current Medications Medications Dose Ordered Sig/Wai Route Start Time Stop Time Status Last Admin Dose Admin Nitroglycerin 0.4 mg Q5MINP PRN SL 05/09/25 23:15 Vancomycin HCl 0 ml @ 0 mls/hr UD IV 05/09/25 23:15 Cancel Pantoprazole Sodium 40 mg DAILY IV 05/10/25 10:00 05/22/25 10:05 40 MG Aspirin 81 mg DAILY PO 05/11/25 10:00 Hydralazine HCl 10 mg Q6HP PRN IV 05/12/25 06:30 05/20/25 22:11 10 MG Ceftriaxone Sodium 50 ml @ 100 mls/hr DAILY@09 IV 05/13/25 09:00 UNV Amino Acids 0 ml @ 0 mls/hr PER PHARMACY IV 05/13/25 16:45 Amino Acids/ Electrolytes/ Dextrose 1,000 ml @ 41 mls/hr DAILY@2200 IV 05/13/25 22:00 05/21/25 21:24 41 MLS/HR Diagnostic Test (Pha) 1 strip Q6HR 05/13/25 00:00 05/22/25 05:56 1 STRIP Insulin Human Regular FOLLOW SLIDING SCALE Q6HR SC 05/13/25 00:00 05/20/25 23:15 2 UNITS Dextrose 50 ml UD IV 05/13/25 00:00 Mupirocin 1 applic BID TOP 05/14/25 22:00 05/22/25 10:05 1 APPLIC Linezolid 300 ml @ 150 mls/hr Q12HR IV 05/15/25 22:00 UNV Albuterol 2.5 mg Q6HR NEB 05/18/25 14:00 05/22/25 11:43 2.5 MG Acetylcysteine 100 mg Q6HR NEB 05/18/25 14:00 05/22/25 11:43 100 MG Furosemide 40 mg BIDD IV 05/21/25 10:45 05/22/25 05:51 40 MG objective General Appearance: alert, no distress HEENT: EOMI, PERRLA, normal external inspect of ears, no icterus, no nasal drainage Neck: no carotid bruit, no jugular venous distention (JVD), no lymphadenopathy Chest: normal thorax Respiratory: clear to auscultation, normal air movement Cardiovascular: regular rate and rhythm, no diastolic murmur, no jugular venous distention (JVD), no rub, no systolic murmur Abdominal: soft, no hepatomegaly, no mass, no splenomegaly, no tenderness Genitourinary: grossly normal external Musculoskeletal: no joint tenderness, no swelling Extremities: normal pulses, no calf tenderness, no clubbing, no cyanosis, no edema Skin: no bruising, no jaundice, no rash Neurological: alert, No focal deficit laboratory and microbiology Laboratory Tests 05/22/25 06:48 05/21/25 07:33 Test 05/22/25 06:48 Range/Units Serum Glucose 106 74-106 mg/dL Problem List 1. Sepsis IV Abx 2. Acute on chronic anemia Medications, Monitoring 3. LISANDRO with CKD 3b Nephrology consult 4. Bed bound Monitoring 5. CVA with residual deficits Monitoring 6. NSTEMI II, demand ischemia Cardiology consult, monitor EKG 7. MRSA w/ Nares Medications, Monitoring 8. Hyperkalemia r/t LISANDRO Hyperkalemia Tx 9. Hypoglycemia Medications, Monitoring Assessment/Plan Subjective: Patient is lethargic today. Objective: Patient was admitted for metabolic encephalopathy related to acute kidney injury superimposed on CKD. Patient was previously on hospice. Patient was found to have sepsis with pneumonia. Patient has anemia of chronic disease. Hemoglobin is 7.8. Repeat head CT is negative for CVA. Patient has a history of previous CVA and is bedbound. Chest x-ray on 05/21/2025 shows a moderate left pleural effusion and small right pleural effusion. IV fluids have been discontinued. Patient was started on diuretics and Med-Neb treatments and chest physiotherapy. Patient's renal function is now at his baseline. Patient has a history of anemia of chronic disease. Plan: Continue current treatment. Monitor daily labs. Continue Med-Neb treatments. Chest physiotherapy. Repeat chest x-ray ordered for a.m. Patient is pending a swallow eval. Dietary Evaluation Review Comments: 1. TPN per pharmacy to meet Pt's daily needs at 48g Protein 1000kcal, when Tube feeding is not feasible. 2. Nepro@25 ml/hr, providing 49g proteinm 1062 [id number] free water, once NG feeding becomes feasible, Start at 10ml/hr and increase 10ml Q6hr till reach the goal rate. 3. Renal standard CCHO-60 once pt can tolerate PO feedings Expected Outcomes/Goals: gradual wt gain Plan discussed with: Patient, Other CC Plasma Assessment Blood Product Administration S: [id number] RAÚL STEEL NP May 22, 2025 11:52
--- NOTE | 2025-05-22 18:55 | DVHPN2 ---
Progress Note Date Seen: May 22, 2025 Medical Necessity Reason Pt with a Central, PICC or Fol: Yes The following are medically ne: Lindsay Catheter Subjective Patient reports: No new complaints Review of Systems: Deferred Objective vital signs Vital Sign Date Time Temp Pulse Resp B/P (MAP) Pulse Ox O2 Delivery O2 Flow Rate FiO2 05/22/25 18:39 88 05/22/25 18:24 98 Room Air* 0 21 21 05/22/25 18:24 16 05/22/25 17:03 97.1 169/84 (112) 97.1 Total Intake and Output 05/21/25 05/21/25 05/22/25 15:00 23:00 07:00 Intake Total 492 ml Balance 492 ml medications Current Medications Medications Dose Ordered Sig/Wai Route Start Time Stop Time Status Last Admin Dose Admin Nitroglycerin 0.4 mg Q5MINP PRN SL 05/09/25 23:15 Vancomycin HCl 0 ml @ 0 mls/hr UD IV 05/09/25 23:15 Cancel Pantoprazole Sodium 40 mg DAILY IV 05/10/25 10:00 05/22/25 10:05 40 MG Aspirin 81 mg DAILY PO 05/11/25 10:00 Hydralazine HCl 10 mg Q6HP PRN IV 05/12/25 06:30 05/20/25 22:11 10 MG Ceftriaxone Sodium 50 ml @ 100 mls/hr DAILY@09 IV 05/13/25 09:00 UNV Amino Acids 0 ml @ 0 mls/hr PER PHARMACY IV 05/13/25 16:45 Amino Acids/ Electrolytes/ Dextrose 1,000 ml @ 41 mls/hr DAILY@2200 IV 05/13/25 22:00 05/21/25 21:24 41 MLS/HR Diagnostic Test (Pha) 1 strip Q6HR 05/13/25 00:00 05/22/25 17:13 1 STRIP Insulin Human Regular FOLLOW SLIDING SCALE Q6HR SC 05/13/25 00:00 05/20/25 23:15 2 UNITS Dextrose 50 ml UD IV 05/13/25 00:00 Mupirocin 1 applic BID TOP 05/14/25 22:00 05/22/25 10:05 1 APPLIC Linezolid 300 ml @ 150 mls/hr Q12HR IV 05/15/25 22:00 UNV Albuterol 2.5 mg Q6HR NEB 05/18/25 14:00 05/22/25 18:23 2.5 MG Acetylcysteine 100 mg Q6HR NEB 05/18/25 14:00 05/22/25 18:23 100 MG Furosemide 40 mg DAILY IV 05/23/25 10:00 Examination: GENERAL:Abnormal, LUNGS:Abnormal, MSK:Abnormal, NEURO:Abnormal laboratory and microbiology Laboratory Tests 05/22/25 06:48 05/21/25 07:33 Test 05/22/25 06:48 Range/Units Serum Glucose 106 74-106 mg/dL Microbiology Date/Time Source Procedure Growth Status 05/11/25 23:45 Voided Urine Urine Culture - Final Yeast, not Diana albicans Complete 05/10/25 02:49 Nose MRSA Screen - Final Methicillin Resistant S.aureus Complete 05/09/25 19:30 Blood Blood Culture - Final NO GROWTH AFTER 5 DAYS OF INCUBATION. Complete Problem List/Assessment/Plan Problem List/Assessment/Plan Acute kidney injury likely acute tubular necrosis in the setting of severe sepsis Severe sepsis Metabolic acidosis Encephalopathy Hypernatremia Hyperkalemia Hypocalcemia Chronic Lindsay for greater than one year Multiple admissions in the past one year Previously on hospice before coming here Recommendations on lasix iv bid ivf held stable renal function d/w mom bedside Plan discussed with: Other Dietary Evaluation Review Comments: 1. TPN per pharmacy to meet Pt's daily needs at 48g Protein 1000kcal, when Tube feeding is not feasible. 2. Nepro@25 ml/hr, providing 49g proteinm 1062 [id number] free water, once NG feeding becomes feasible, Start at 10ml/hr and increase 10ml Q6hr till reach the goal rate. 3. Renal standard CCHO-60 once pt can tolerate PO feedings Expected Outcomes/Goals: gradual wt gain CC Plasma Assessment Blood Product Administration S: [id number] ROSE BROWNLEE MD May 22, 2025 18:55
--- NOTE | 2025-05-22 22:43 | DVHPN2 ---
Progress Note - Dictate Date Seen: May 22, 2025 Medical Necessity Reason Pt with a Central, PICC or Fol: Yes The following are medically ne: Smith Catheter Reason for smith catheter: Strict I&O Subjective Patient seen and examined at bedside. Breathing comfortably on room air. Overnight events reviewed. vital signs Vital Sign Date Time Temp Pulse Resp B/P (MAP) Pulse Ox O2 Delivery O2 Flow Rate FiO2 05/22/25 21:00 97.7 78 18 128/70 (89) 99 97.7 05/22/25 20:00 Room Air* 0 21 Total Intake and Output 05/21/25 05/21/25 05/22/25 15:00 23:00 07:00 Intake Total 492 ml Balance 492 ml medications Current Medications Medications Dose Ordered Sig/Wai Route Start Time Stop Time Status Last Admin Dose Admin Nitroglycerin 0.4 mg Q5MINP PRN SL 05/09/25 23:15 Vancomycin HCl 0 ml @ 0 mls/hr UD IV 05/09/25 23:15 Cancel Pantoprazole Sodium 40 mg DAILY IV 05/10/25 10:00 05/22/25 10:05 40 MG Aspirin 81 mg DAILY PO 05/11/25 10:00 Hydralazine HCl 10 mg Q6HP PRN IV 05/12/25 06:30 05/20/25 22:11 10 MG Ceftriaxone Sodium 50 ml @ 100 mls/hr DAILY@09 IV 05/13/25 09:00 UNV Amino Acids 0 ml @ 0 mls/hr PER PHARMACY IV 05/13/25 16:45 Amino Acids/ Electrolytes/ Dextrose 1,000 ml @ 41 mls/hr DAILY@2200 IV 05/13/25 22:00 05/22/25 21:20 41 MLS/HR Diagnostic Test (Pha) 1 strip Q6HR 05/13/25 00:00 05/22/25 17:13 1 STRIP Insulin Human Regular FOLLOW SLIDING SCALE Q6HR SC 05/13/25 00:00 05/20/25 23:15 2 UNITS Dextrose 50 ml UD IV 05/13/25 00:00 Mupirocin 1 applic BID TOP 05/14/25 22:00 05/22/25 21:24 1 APPLIC Linezolid 300 ml @ 150 mls/hr Q12HR IV 05/15/25 22:00 UNV Albuterol 2.5 mg Q6HR NEB 05/18/25 14:00 05/22/25 18:23 2.5 MG Acetylcysteine 100 mg Q6HR NEB 05/18/25 14:00 05/22/25 18:23 100 MG Furosemide 40 mg DAILY IV 05/23/25 10:00 objective Gen.: Patient lying in bed in no apparent distress. Breathing on room air. Head: Normocephalic, atraumatic. Eyes: EOMI/PERRLA. Ears: Normal hearing. Normal anatomy. Neck/trachea: Trachea midline, supple. Nose: Normal external anatomy. Mouth: Moist mucous membranes. Chest: Decreased air entry bilaterally. No wheezing or rhonchi. Cardiovascular: Positive S1, positive S2. Regular rate and rhythm. Abdomen: Positive bowel sounds in all 4 quadrants. Soft, non-tender, non- distended. : Deferred. Rectal: Deferred. Skin: Warm, dry. Intact. Extremities: 2+ radial pulses bilaterally. No lower extremity edema. Neuro: Awake, alert, oriented x3. No gross motor or sensory deficits. Cranial nerves II through XII intact. Gait not assessed. laboratory and microbiology Laboratory Tests 05/22/25 06:48 05/21/25 07:33 Test 05/22/25 06:48 Range/Units Serum Glucose 106 74-106 mg/dL Assessment/Plan Impression: Acute hypoxemic respiratory failure Altered mental status Pneumonia Sepsis Urinary tract infection Events: Low oxygen requirements On room air No acute events CXR on 05/21 revealed cardiomegaly with pulmonary vascular congestion and bilateral patchy airspace opacities, significantly worsened. Moderate left and small right pleural effusions. Continue bronchodilators/Mucomyst Accu-Cheks, ISS. Clinimix for nutritional support Diurese with Lasix Monitor renal function Monitor electrolytes. Supplement as necessary. Monitor ins and outs. Maintain euvolemia. Protonix for GI ppx Labs and imaging reviewed Rest of plan as noted below. Plan: Supplemental oxygen as needed Titrate to maintain sats above 92% Incentive spirometry Continue antibiotics F/u cultures Bronchodilators Accu-Cheks, ISS. Clinimix for nutritional support Monitor renal function Diurese to euvolemia Monitor electrolytes Supplement as needed Follow up Nephrology recs Monitor blood count Transfuse blood products as needed DVT prophylaxis Prognosis: Guarded given patient's multiple co-morbidities. Rest of plan per hospitalist and other consultants. Thank you, ANITHA Vergara, for allowing me to participate in this patient's care. Further recommendations will depend on the patient's clinical course. Please do not hesitate to contact me if you have any questions or concerns. This medical document was created using an electronic medical record system with [employer] dictation system. Although these documentations are being carefully reviewed, there may still be some phonetic and typographical changes. The errors are purely typographical, due to imperfection on the software program, and do not reflect any compromise in the patient's medical care. Dietary Evaluation Review Comments: 1. TPN per pharmacy to meet Pt's daily needs at 48g Protein 1000kcal, when Tube feeding is not feasible. 2. Nepro@25 ml/hr, providing 49g proteinm 1062 [id number] free water, once NG feeding becomes feasible, Start at 10ml/hr and increase 10ml Q6hr till reach the goal rate. 3. Renal standard CCHO-60 once pt can tolerate PO feedings Expected Outcomes/Goals: gradual wt gain Plan discussed with: Patient, Other (CARMEN Verma) CC Plasma Assessment Blood Product Administration S: [id number] EDGARDO CULLEN MD May 22, 2025 22:43
[2025-05-23] VITALS (15 sets, daily range): BP systolic 137–169; BP diastolic 67–91; PULSE 73–87; RESP 14–20; TEMP 97.1–98.3; O2SAT 94–100
[2025-05-23 06:31] LABS: Mean Corpuscular Hemoglobin 29.5 pg (28.0-32.0)
[2025-05-23 06:34] LABS: Hematocrit 21.6 % (41.0-53.0); Hemoglobin 7.2 g/dL (13.5-17.5); Mean Corpuscular Volume 88.4 fL (80.0-100.0); Nucleated Red Blood Cells % 0.3 %
[2025-05-23 06:52] LABS: Alanine Aminotransferase 10 U/L (7-40); Anion Gap 12 (5-15); BUN/Creatinine Ratio 35.1 (10.0-20.0); Chloride 104 mmol/L (98-107); Magnesium 1.8 mg/dL (1.6-2.6)
[2025-05-23 06:55] LABS: Carbon Dioxide 18 mmol/L (20-31); Glucose 132 mg/dL (74-106); Potassium 3.3 mmol/L (3.5-5.1); Sodium 134 mmol/L (136-145)
[2025-05-23 07:16] LABS: Albumin 2.2 g/dL (3.2-4.8); Alkaline Phosphatase 164 U/L (46-116); Bilirubin, Total < 0.2 mg/dL (0.2-1.0); Blood Urea Nitrogen 115 mg/dL (9-23); Calcium 7.9 mg/dL (8.7-10.4); Total Protein 5.0 g/dL (5.7-8.2)
--- NOTE | 2025-05-23 07:43 | DVHPN2 ---
Progress Note - Dictate Date Seen: May 23, 2025 Medical Necessity Reason Pt with a Central, PICC or Fol: Yes The following are medically ne: Smith Catheter Reason for smith catheter: Strict I&O vital signs Vital Sign Date Time Temp Pulse Resp B/P (MAP) Pulse Ox O2 Delivery O2 Flow Rate FiO2 05/23/25 05:37 74 16 99 05/23/25 05:30 Room Air* 0 21 21 05/23/25 05:00 97.3 137/77 (97) 97.3 medications Current Medications Medications Dose Ordered Sig/Wai Route Start Time Stop Time Status Last Admin Dose Admin Nitroglycerin 0.4 mg Q5MINP PRN SL 05/09/25 23:15 Vancomycin HCl 0 ml @ 0 mls/hr UD IV 05/09/25 23:15 Cancel Pantoprazole Sodium 40 mg DAILY IV 05/10/25 10:00 05/22/25 10:05 40 MG Aspirin 81 mg DAILY PO 05/11/25 10:00 Hydralazine HCl 10 mg Q6HP PRN IV 05/12/25 06:30 05/20/25 22:11 10 MG Ceftriaxone Sodium 50 ml @ 100 mls/hr DAILY@09 IV 05/13/25 09:00 UNV Amino Acids 0 ml @ 0 mls/hr PER PHARMACY IV 05/13/25 16:45 Amino Acids/ Electrolytes/ Dextrose 1,000 ml @ 41 mls/hr DAILY@2200 IV 05/13/25 22:00 05/22/25 21:20 41 MLS/HR Diagnostic Test (Pha) 1 strip Q6HR 05/13/25 00:00 05/23/25 05:49 1 STRIP Insulin Human Regular FOLLOW SLIDING SCALE Q6HR SC 05/13/25 00:00 05/20/25 23:15 2 UNITS Dextrose 50 ml UD IV 05/13/25 00:00 Mupirocin 1 applic BID TOP 05/14/25 22:00 05/22/25 21:24 1 APPLIC Linezolid 300 ml @ 150 mls/hr Q12HR IV 05/15/25 22:00 UNV Albuterol 2.5 mg Q6HR NEB 05/18/25 14:00 05/23/25 05:30 2.5 MG Acetylcysteine 100 mg Q6HR NEB 05/18/25 14:00 05/23/25 05:30 100 MG Furosemide 40 mg DAILY IV 05/23/25 10:00 laboratory and microbiology Laboratory Tests 05/23/25 05:59 Test 05/23/25 05:59 Range/Units Serum Glucose 132 H 74-106 mg/dL Assessment/Plan Patient is a 44-year-old gentleman who presented with altered mental status/shortness of breath. He is at baseline poor historian. Information was obtained by reviewing the chart and communicating with staff. It seems that since arrival the patient was found to have severe sepsis and multiorgan dysfunction. He has been on supplemental oxygen. 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 Reportedly on arrival to Emergency room blood pressure was low on later improved. Cardiology is involved for cardiac aspects of care. There is no report of chest pain. Lying flat in bed. No JVD. Mucosa is pink and wet. Scattered rhonchi in the lungs is heard. Cardiac: Regular, tachycardic, no thrill. Systolic murmur 2/6 in apex is heard. Abdomen is soft. There is no gross mass. There is no hepatomegaly. Extremities do not reveal edema. Dorsalis pedis is 2+ bilateral Past medical history reportedly includes old history of CVA with poor functional capacity, CKD, hypertension, hyperlipidemia, diabetes mellitus, repeated history of sepsis, history of urethral stricture and recurrent UTI, history of phimosis anemia and bed-bound at baseline. There was question if the patient has baseline history of diastolic heart failure Echocardiogram of December 2024 revealed ejection fraction of 64%, trace MR/TR and right ventricular systolic pressure of 34 mm Hg. WBC: 26.7 - 20.8 - 29.9 - 29.4 - 28.9 - 21.8 - 18.4 - 16.0 - 13.0 - 7.6 - 6.6 Hemoglobin: 5.9 - 6.8 - 7.8 - 9.0 - 9.5 - 8.5 - 8.4 - 8.7 - 8.9 - 7.8 - 7.2 BNP: 528.66 - 280.34 Creatinine: 5.69 - 5.7 - 4.72 - 4.86 - 4.67 - 4.73 - 4.70 - 4.77 - 4.84 - 4.51 - 4.46 - 4.03 - 4.03 - 3.88 - 3.69 - 3.36 - 3.29 - 3.34 - 3.22 - 3.25 - 3.32 - 3.28 Potassium: 8.0 - 7.6 - 5.8 - 5.8 - 5.0 - 5.0 - 5.0 - 4.9 - 4.4 - 3.9 - 3.2 - 3.2 - 3.4 - 4.0 - 3.7 - 3.8 - 3.5 - 3.5 - 3.5 - 3.5 - 3.3 Sodium: 147 - 146 - 153 - 154 - 157 - 155 - 154 - 152 - 150 - 150 - 147 - 147 - 143 - 140 - 134 - 135 - 134 - 135 - 134 - 134 - 134 AST/ALT: 96/66 - 468/478 - 257/349 - 15/118 - 11/67 - 10/42 - 13/30 - 11/24 - 10/12 - 9/10 - <8/10 Troponin (high sensitive): 81 - 89 - 92 Chest x-ray reported: IMPRESSION: Findings suggest a mild degree of pulmonary edema which is decreased compared to the prior study on 01/11/2025. Pneumonia is considered less likely Repeat chest xry revealed: IMPRESSION: 1. No interval change. Repeat chest xry revealed: 1. Increase in patchy and confluent bilateral airspace opacities which could reflect worsening multifocal pneumonia and/or pulmonary edema. 2. Probable bilateral pleural effusions, greater on the left. Repeat chest xry revealed: IMPRESSION: Improving multifocal pneumonia. Repeat chest xry revealed: IMPRESSION: Cardiomegaly with pulmonary vascular congestion and bilateral patchy airspace opacities, significantly worsened. Moderate left and small right pleural effusions. CT of Head revealed: IMPRESSION: No intracranial hemorrhage or mass effect. Advanced chronic microvascular ischemic changes with old infarcts as described. Large right mastoid effusion. Renal ultrasound reported: IMPRESSION: Bilateral medical renal disease. EKG revealed sinus tachycardia Tele shows sinus tachycardia Echocardiogram revealed: Left ventricle: Mild diffuse hypokinesis of left ventricle was seen. LVEF was around 50%. Right ventricle was normal size with mildly reduced systolic function. Both atria were normal size. Aortic valve was trileaflet. There was no aortic insufficiency/stenosis. There was mild mitral/tricuspid regurgitation. There was no pulmonary valve insufficiency. Right ventricular systolic pressure was assessed at 35 mm Hg. There was trace pericardial effusion. Patient is a 44-year-old gentleman who was at baseline bed-bound with old history of CVA who presented with altered mental status and shortness of breath. Presentation is in favor acute respiratory failure secondary to sepsis. Multiorgan failure secondary to sepsis is considered. Minimal increase in troponin is considered to reflect demand ischemia in a patient with questionable history of diastolic heart failure. In December 2024 ejection fraction in echocardiogram was 64% with no specific increase in right ventricular systolic pressure. Acute respiratory failure Sepsis Encephalopathy, metabolic versus toxic LISANDRO on CKD ATN Demand ischemia Hypernatremia Hypokalemia Anemia Cardiac suggestion for management: Manage in tele Fluid resuscitation as per Nephrology Follow-up electrolytes and kidney function tests and correct abnormalities Aspirin: 81 mg daily with old history of CVA is suggested DVT prophylaxis as per primary team Has failed swallowing evaluation Cardiac ramirez, patient is moderate risk patient for low to moderate risk EGD/PEG placement. Cardiac ramirez, you can proceed with the EGD/PEG placement under appropriate intra and post operative hemodynamic monitoring. Avoid Hypotension. Management of sepsis/infection as per primary team Pulmonary follow-up Nephrology follow up Recognizing co-morbidities, prognosis is gaurded. Further evaluation and management depends on the above and clinical course A total of 55 minutes was spent reviewing the patient record, examining the patient, making a diagnostic and therapeutic plan, discussing this plan with medical personnel, following up on diagnostic studies and following the patient for clinical stability excluding any and all procedures. At least 50% of this time was spent in direct, [id number] contact. Thank you for allowing me to participate in this patient's care. Further recommendations will depend on patient's clinical course. Please do not hesitate to contact me if you have any questions or concerns. This medical document was created using electronic medical record system with [employer] computerized dictation system. Although this document has been carefully reviewed, there may still be some phonetic and typographical errors. These areas are purely typographical due to the imperfection of the software programs, and do not reflect any compromise in the patient's medical care. Dietary Evaluation Review Comments: 1. TPN per pharmacy to meet Pt's daily needs at 48g Protein 1000kcal, when Tube feeding is not feasible. 2. Nepro@25 ml/hr, providing 49g proteinm 1062 [id number] free water, once NG feeding becomes feasible, Start at 10ml/hr and increase 10ml Q6hr till reach the goal rate. 3. Renal standard CCHO-60 once pt can tolerate PO feedings Expected Outcomes/Goals: gradual wt gain Plan discussed with: Other (nurse) CC Plasma Assessment Blood Product Administration S: [id number] FAN HAMEED MD May 23, 2025 07:43
--- NOTE | 2025-05-23 09:02 | DVH ---
AP portable chest Comparison: 05/21/2025 CLINICAL INDICATION: f/u FINDINGS: Heart size is enlarged. Pulmonary vascular markings increased throughout the right lung. In creased density in the left lower lung zone obscuring the left hemidiaphragm IMPRESSION: 1. Continuing signs of pulmonary edema. Can not left lower lobe retrocardiac consolidation/ pneumonia with effusion
[2025-05-23] MEDS: FUROSEMIDE 40 MG/4 ML VIAL IV SCH ×2 (10:31→20:39)
--- NOTE | 2025-05-23 11:27 | DVHPN2 ---
Progress Note Date Seen: May 23, 2025 Medical Necessity Reason Pt with a Central, PICC or Fol: Yes The following are medically ne: Smith Catheter Reason for smith catheter: Strict I&O Subjective Patient reports: Other (Poor historian) Review of Systems: Deferred Objective vital signs Vital Sign Date Time Temp Pulse Resp B/P (MAP) Pulse Ox O2 Delivery O2 Flow Rate FiO2 05/23/25 10:31 148/100 05/23/25 10:00 95 Room Air 0.0 05/23/25 10:00 21 05/23/25 09:00 98.3 79 20 98.3 medications Current Medications Medications Dose Ordered Sig/Wai Route Start Time Stop Time Status Last Admin Dose Admin Nitroglycerin 0.4 mg Q5MINP PRN SL 05/09/25 23:15 Vancomycin HCl 0 ml @ 0 mls/hr UD IV 05/09/25 23:15 Cancel Pantoprazole Sodium 40 mg DAILY IV 05/10/25 10:00 05/23/25 10:30 40 MG Aspirin 81 mg DAILY PO 05/11/25 10:00 Hydralazine HCl 10 mg Q6HP PRN IV 05/12/25 06:30 05/20/25 22:11 10 MG Ceftriaxone Sodium 50 ml @ 100 mls/hr DAILY@09 IV 05/13/25 09:00 UNV Amino Acids 0 ml @ 0 mls/hr PER PHARMACY IV 05/13/25 16:45 Amino Acids/ Electrolytes/ Dextrose 1,000 ml @ 41 mls/hr DAILY@2200 IV 05/13/25 22:00 05/22/25 21:20 41 MLS/HR Diagnostic Test (Pha) 1 strip Q6HR 05/13/25 00:00 05/23/25 05:49 1 STRIP Insulin Human Regular FOLLOW SLIDING SCALE Q6HR SC 05/13/25 00:00 05/20/25 23:15 2 UNITS Dextrose 50 ml UD IV 05/13/25 00:00 Mupirocin 1 applic BID TOP 05/14/25 22:00 05/23/25 10:00 1 APPLIC Linezolid 300 ml @ 150 mls/hr Q12HR IV 05/15/25 22:00 UNV Albuterol 2.5 mg Q6HR NEB 05/18/25 14:00 05/23/25 05:30 2.5 MG Acetylcysteine 100 mg Q6HR NEB 05/18/25 14:00 05/23/25 05:30 100 MG Furosemide 40 mg DAILY IV 05/23/25 10:00 05/23/25 10:31 40 MG Examination: GENERAL:Abnormal, MSK:Abnormal, NEURO:Abnormal laboratory and microbiology Laboratory Tests 05/23/25 05:59 Test 05/23/25 05:59 Range/Units Serum Glucose 132 H 74-106 mg/dL Microbiology Date/Time Source Procedure Growth Status 05/11/25 23:45 Voided Urine Urine Culture - Final Yeast, not Diana albicans Complete 05/10/25 02:49 Nose MRSA Screen - Final Methicillin Resistant S.aureus Complete 05/09/25 19:30 Blood Blood Culture - Final NO GROWTH AFTER 5 DAYS OF INCUBATION. Complete Problem List/Assessment/Plan Problem List/Assessment/Plan Acute kidney injury likely acute tubular necrosis in the setting of severe sepsis Severe sepsis/pneumonia Metabolic acidosis Encephalopathy Hypernatremia Hyperkalemia Hypocalcemia Chronic Smith for greater than one year Multiple admissions in the past one year Previously on hospice before coming here Recommendations Continue lasix iv bid K replace Chest x-ray pulmonary vascular stable renal function d/w mom bedside Plan discussed with: Other My Orders My Orders Orders - ROSE BROWNLEE MD Procedure Category Date Status Time Furosemide Injection PHA 05/23/25 Verified (Lasix Injection) 22:00 Dietary Evaluation Review Comments: 1. TPN per pharmacy to meet Pt's daily needs at 48g Protein 1000kcal, when Tube feeding is not feasible. 2. Nepro@25 ml/hr, providing 49g proteinm 1062 [id number] free water, once NG feeding becomes feasible, Start at 10ml/hr and increase 10ml Q6hr till reach the goal rate. 3. Renal standard CCHO-60 once pt can tolerate PO feedings Expected Outcomes/Goals: gradual wt gain CC Plasma Assessment Blood Product Administration S: [id number] ROSE BROWNLEE MD May 23, 2025 11:27
--- NOTE | 2025-05-23 15:08 | DVHPN2 ---
Progress Note - Dictate Date Seen: May 23, 2025 Medical Necessity Reason Pt with a Central, PICC or Fol: Yes The following are medically ne: Smith Catheter Reason for smith catheter: Strict I&O vital signs Vital Sign Date Time Temp Pulse Resp B/P (MAP) Pulse Ox O2 Delivery O2 Flow Rate FiO2 05/23/25 13:11 97.1 74 17 169/83 (111) 100 97.1 05/23/25 11:28 Room Air 0.0 05/23/25 11:28 21 21 medications Current Medications Medications Dose Ordered Sig/Wai Route Start Time Stop Time Status Last Admin Dose Admin Nitroglycerin 0.4 mg Q5MINP PRN SL 05/09/25 23:15 Vancomycin HCl 0 ml @ 0 mls/hr UD IV 05/09/25 23:15 Cancel Pantoprazole Sodium 40 mg DAILY IV 05/10/25 10:00 05/23/25 10:30 40 MG Aspirin 81 mg DAILY PO 05/11/25 10:00 Hydralazine HCl 10 mg Q6HP PRN IV 05/12/25 06:30 05/20/25 22:11 10 MG Ceftriaxone Sodium 50 ml @ 100 mls/hr DAILY@09 IV 05/13/25 09:00 UNV Amino Acids 0 ml @ 0 mls/hr PER PHARMACY IV 05/13/25 16:45 Amino Acids/ Electrolytes/ Dextrose 1,000 ml @ 41 mls/hr DAILY@2200 IV 05/13/25 22:00 05/22/25 21:20 41 MLS/HR Diagnostic Test (Pha) 1 strip Q6HR 05/13/25 00:00 05/23/25 11:52 1 STRIP Insulin Human Regular FOLLOW SLIDING SCALE Q6HR SC 05/13/25 00:00 05/23/25 11:54 2 UNITS Dextrose 50 ml UD IV 05/13/25 00:00 Mupirocin 1 applic BID TOP 05/14/25 22:00 05/23/25 10:00 1 APPLIC Linezolid 300 ml @ 150 mls/hr Q12HR IV 05/15/25 22:00 UNV Albuterol 2.5 mg Q6HR NEB 05/18/25 14:00 05/23/25 11:28 2.5 MG Acetylcysteine 100 mg Q6HR NEB 05/18/25 14:00 05/23/25 11:28 100 MG Furosemide 40 mg BID IV 05/23/25 22:00 Potassium Chloride 100 ml @ 50 mls/hr Q2H IV 05/23/25 15:00 05/23/25 18:59 objective General Appearance: alert, no distress HEENT: EOMI, PERRLA, normal external inspect of ears, no icterus, no nasal drainage Neck: no carotid bruit, no jugular venous distention (JVD), no lymphadenopathy Chest: normal thorax Respiratory: clear to auscultation, normal air movement Cardiovascular: regular rate and rhythm, no diastolic murmur, no jugular venous distention (JVD), no rub, no systolic murmur Abdominal: soft, no hepatomegaly, no mass, no splenomegaly, no tenderness Genitourinary: grossly normal external Musculoskeletal: no joint tenderness, no swelling Extremities: normal pulses, no calf tenderness, no clubbing, no cyanosis, no edema Skin: no bruising, no jaundice, no rash Neurological: alert, No focal deficit laboratory and microbiology Laboratory Tests 05/23/25 05:59 Test 05/23/25 05:59 Range/Units Serum Glucose 132 H 74-106 mg/dL Problem List 1. Sepsis IV Abx 2. Acute on chronic anemia Medications, Monitoring 3. LISANDRO with CKD 3b Nephrology consult 4. Bed bound Monitoring 5. CVA with residual deficits Monitoring 6. NSTEMI II, demand ischemia Cardiology consult, monitor EKG 7. MRSA w/ Nares Medications, Monitoring 8. Hyperkalemia r/t LISANDRO Hyperkalemia Tx 9. Hypoglycemia Medications, Monitoring Assessment/Plan Subjective: Patient continues to have a metabolic encephalopathy. Objective: Patient had a full bath from his nurse today. Patient has positive MRSA to his nares. Patient's chest X Rays unresolved pneumonia. Creatinine is stable. Potassium is 3.3. Plan: Replace electrolytes. Start vancomycin for persistent pneumonia. Patients positive for MRSA of the nares. Continue med neb treatments and chest physiotherapy as tolerated. Dietary Evaluation Review Comments: 1. TPN per pharmacy to meet Pt's daily needs at 48g Protein 1000kcal, when Tube feeding is not feasible. 2. Nepro@25 ml/hr, providing 49g proteinm 1062 [id number] free water, once NG feeding becomes feasible, Start at 10ml/hr and increase 10ml Q6hr till reach the goal rate. 3. Renal standard CCHO-60 once pt can tolerate PO feedings Expected Outcomes/Goals: gradual wt gain Plan discussed with: Patient, Other CC Plasma Assessment Blood Product Administration S: [id number] RAÚL STEEL NP May 23, 2025 15:08
[2025-05-23] MEDS: CALCIUM GLUC 1,000mg/50ml-NS 50 ML IV ONE (15:10)
--- NOTE | 2025-05-23 15:10 | DVHPN2 ---
Progress Note - Dictate Medical Necessity Reason Pt with a Central, PICC or Fol: Yes The following are medically ne: Smith Catheter Reason for smith catheter: Strict I&O vital signs Vital Sign Date Time Temp Pulse Resp B/P (MAP) Pulse Ox O2 Delivery O2 Flow Rate FiO2 05/23/25 13:11 97.1 74 17 169/83 (111) 100 97.1 05/23/25 11:28 Room Air 0.0 05/23/25 11:28 21 21 medications Current Medications Medications Dose Ordered Sig/Wai Route Start Time Stop Time Status Last Admin Dose Admin Nitroglycerin 0.4 mg Q5MINP PRN SL 05/09/25 23:15 Vancomycin HCl 0 ml @ 0 mls/hr UD IV 05/09/25 23:15 Cancel Pantoprazole Sodium 40 mg DAILY IV 05/10/25 10:00 05/23/25 10:30 40 MG Aspirin 81 mg DAILY PO 05/11/25 10:00 Hydralazine HCl 10 mg Q6HP PRN IV 05/12/25 06:30 05/20/25 22:11 10 MG Ceftriaxone Sodium 50 ml @ 100 mls/hr DAILY@09 IV 05/13/25 09:00 UNV Amino Acids 0 ml @ 0 mls/hr PER PHARMACY IV 05/13/25 16:45 Amino Acids/ Electrolytes/ Dextrose 1,000 ml @ 41 mls/hr DAILY@2200 IV 05/13/25 22:00 05/22/25 21:20 41 MLS/HR Diagnostic Test (Pha) 1 strip Q6HR 05/13/25 00:00 05/23/25 11:52 1 STRIP Insulin Human Regular FOLLOW SLIDING SCALE Q6HR SC 05/13/25 00:00 05/23/25 11:54 2 UNITS Dextrose 50 ml UD IV 05/13/25 00:00 Mupirocin 1 applic BID TOP 05/14/25 22:00 05/23/25 10:00 1 APPLIC Linezolid 300 ml @ 150 mls/hr Q12HR IV 05/15/25 22:00 UNV Albuterol 2.5 mg Q6HR NEB 05/18/25 14:00 05/23/25 11:28 2.5 MG Acetylcysteine 100 mg Q6HR NEB 05/18/25 14:00 05/23/25 11:28 100 MG Furosemide 40 mg BID IV 05/23/25 22:00 Potassium Chloride 100 ml @ 50 mls/hr Q2H IV 05/23/25 15:00 05/23/25 18:59 objective General Appearance: alert, no distress HEENT: EOMI, PERRLA, normal external inspect of ears, no icterus, no nasal drainage Neck: no carotid bruit, no jugular venous distention (JVD), no lymphadenopathy Chest: normal thorax Respiratory: clear to auscultation, normal air movement Cardiovascular: regular rate and rhythm, no diastolic murmur, no jugular venous distention (JVD), no rub, no systolic murmur Abdominal: soft, no hepatomegaly, no mass, no splenomegaly, no tenderness Genitourinary: grossly normal external Musculoskeletal: no joint tenderness, no swelling Extremities: normal pulses, no calf tenderness, no clubbing, no cyanosis, no edema Skin: no bruising, no jaundice, no rash Neurological: alert, No focal deficit laboratory and microbiology Laboratory Tests 05/23/25 05:59 Test 05/23/25 05:59 Range/Units Serum Glucose 132 H 74-106 mg/dL Problem List 1. Sepsis IV Abx 2. Acute on chronic anemia Medications, Monitoring 3. LISANDRO with CKD 3b Nephrology consult 4. Bed bound Monitoring 5. CVA with residual deficits Monitoring 6. NSTEMI II, demand ischemia Cardiology consult, monitor EKG 7. MRSA w/ Nares Medications, Monitoring 8. Hyperkalemia r/t LISANDRO Hyperkalemia Tx 9. Hypoglycemia Medications, Monitoring Assessment/Plan Subjective: Patient is lethargic today. Objective: Patient was admitted for metabolic encephalopathy related to acute kidney injury superimposed on CKD. Patient was previously on hospice. Patient was found to have sepsis with pneumonia. Patient has anemia of chronic disease. Hemoglobin is 7.8. Repeat head CT is negative for CVA. Patient has a history of previous CVA and is bedbound. Chest x-ray on 05/21/2025 shows a moderate left pleural effusion and small right pleural effusion. IV fluids have been discontinued. Patient was started on diuretics and Med-Neb treatments and chest physiotherapy. Patient's renal function is now at his baseline. Patient has a history of anemia of chronic disease. Plan: Continue current treatment. Monitor daily labs. Continue Med-Neb treatments. Chest physiotherapy. Repeat chest x-ray ordered for a.m. Patient is pending a swallow eval. Dietary Evaluation Review Comments: 1. TPN per pharmacy to meet Pt's daily needs at 48g Protein 1000kcal, when Tube feeding is not feasible. 2. Nepro@25 ml/hr, providing 49g proteinm 1062 [id number] free water, once NG feeding becomes feasible, Start at 10ml/hr and increase 10ml Q6hr till reach the goal rate. 3. Renal standard CCHO-60 once pt can tolerate PO feedings Expected Outcomes/Goals: gradual wt gain CC Plasma Assessment Blood Product Administration S: [id number] RAÚL STEEL NP May 23, 2025 15:10
[2025-05-23] MEDS ORDERED: VANCOMYCIN PER PHARMACY 0 MG IV SCH (15:15)
[2025-05-23] MEDS ORDERED: VANCOMYCIN 1GM/200ML PM 200 ML IV ONE (16:00)
[2025-05-23] MEDS: VANCOMYCIN 1GM/250ML KIT 250 ML IV ONE (16:00)
[2025-05-23] MEDS: methylPREDNISolone SOD SUCC 40 MG/ML VL IV SCH (16:42)
[2025-05-23] MEDS: POTASSIUM CHL 20MEQ/100ML 100 ML IV SCH (16:43)
[2025-05-23] MEDS: VANCOMYCIN 1GM/200ML PM 200 ML IV ONE (21:36)
--- NOTE | 2025-05-23 23:04 | DVHPN2 ---
Progress Note - Dictate Date Seen: May 23, 2025 Medical Necessity Reason Pt with a Central, PICC or Fol: Yes The following are medically ne: Smith Catheter Reason for smith catheter: Strict I&O Subjective 44-year-old gentleman who was at baseline bed-bound with old history of CVA who presented with altered mental status and shortness of breath. Multiorgan failure secondary to sepsis is considered. Minimal increase in troponin is considered to reflect demand ischemia in a patient with questionable history of diastolic heart failure; EF 64% Patient failed 2nd swallow evaluation No new complaints vital signs Vital Sign Date Time Temp Pulse Resp B/P (MAP) Pulse Ox O2 Delivery O2 Flow Rate FiO2 05/23/25 21:05 178/113 05/23/25 21:00 97.7 80 17 98 97.7 05/23/25 18:10 Room Air 0.0 05/23/25 18:10 21 21 medications Current Medications Medications Dose Ordered Sig/Wai Route Start Time Stop Time Status Last Admin Dose Admin Nitroglycerin 0.4 mg Q5MINP PRN SL 05/09/25 23:15 Vancomycin HCl 0 ml @ 0 mls/hr UD IV 05/09/25 23:15 Cancel Pantoprazole Sodium 40 mg DAILY IV 05/10/25 10:00 05/23/25 10:30 40 MG Aspirin 81 mg DAILY PO 05/11/25 10:00 Hydralazine HCl 10 mg Q6HP PRN IV 05/12/25 06:30 05/23/25 21:05 10 MG Ceftriaxone Sodium 50 ml @ 100 mls/hr DAILY@09 IV 05/13/25 09:00 UNV Amino Acids 0 ml @ 0 mls/hr PER PHARMACY IV 05/13/25 16:45 Amino Acids/ Electrolytes/ Dextrose 1,000 ml @ 41 mls/hr DAILY@2200 IV 05/13/25 22:00 05/23/25 20:27 41 MLS/HR Diagnostic Test (Pha) 1 strip Q6HR 05/13/25 00:00 05/23/25 17:07 1 STRIP Insulin Human Regular FOLLOW SLIDING SCALE Q6HR SC 05/13/25 00:00 05/23/25 11:54 2 UNITS Dextrose 50 ml UD IV 05/13/25 00:00 Mupirocin 1 applic BID TOP 05/14/25 22:00 05/23/25 21:12 1 APPLIC Linezolid 300 ml @ 150 mls/hr Q12HR IV 05/15/25 22:00 UNV Albuterol 2.5 mg Q6HR NEB 05/18/25 14:00 05/23/25 18:13 2.5 MG Acetylcysteine 100 mg Q6HR NEB 05/18/25 14:00 05/23/25 18:13 100 MG Furosemide 40 mg BID IV 05/23/25 22:00 05/23/25 20:39 40 MG Methylprednisolone Sodium Succinate 40 mg DAILY IV 05/23/25 15:15 05/23/25 16:42 40 MG Vancomycin HCl 0 ml @ 0 mls/hr UD IV 05/23/25 15:15 objective General: NAD, patient is resting Chest: lung perez clear to auscultation Heart: RRR, no murmur Abdomen: non-distended, no tenderness to palpation, +BS laboratory and microbiology Laboratory Tests 05/23/25 05:59 Test 05/23/25 05:59 Range/Units Serum Glucose 132 H 74-106 mg/dL Problems(with codes): (1) Acute prerenal azotemia (2) Sepsis (3) Symptomatic anemia (4) Metabolic encephalopathy Prognosis Plan Cardiology follow up appreciated Patient has been cleared for EGD with PEG tube placement NPO after midnight I had tentatively plan to do an endoscopy on 05/24/2025 if consent is obtained Dietary Evaluation Review Comments: 1. TPN per pharmacy to meet Pt's daily needs at 48g Protein 1000kcal, when Tube feeding is not feasible. 2. Nepro@25 ml/hr, providing 49g proteinm 1062 [id number] free water, once NG feeding becomes feasible, Start at 10ml/hr and increase 10ml Q6hr till reach the goal rate. 3. Renal standard CCHO-60 once pt can tolerate PO feedings Expected Outcomes/Goals: gradual wt gain Plan discussed with: Other (None) CC Plasma Assessment Blood Product Administration S: [id number] CHANTE PALMER MD May 23, 2025 23:04
--- NOTE | 2025-05-23 23:17 | DVHPN2 ---
Progress Note - Dictate Date Seen: May 23, 2025 Medical Necessity Reason Pt with a Central, PICC or Fol: Yes The following are medically ne: Smith Catheter Reason for smith catheter: Strict I&O Subjective Patient seen and examined at bedside. Breathing comfortably on room air. Overnight events reviewed. vital signs Vital Sign Date Time Temp Pulse Resp B/P (MAP) Pulse Ox O2 Delivery O2 Flow Rate FiO2 05/23/25 21:05 178/113 05/23/25 21:00 97.7 80 17 98 97.7 05/23/25 18:10 Room Air 0.0 05/23/25 18:10 21 21 medications Current Medications Medications Dose Ordered Sig/Wai Route Start Time Stop Time Status Last Admin Dose Admin Nitroglycerin 0.4 mg Q5MINP PRN SL 05/09/25 23:15 Vancomycin HCl 0 ml @ 0 mls/hr UD IV 05/09/25 23:15 Cancel Pantoprazole Sodium 40 mg DAILY IV 05/10/25 10:00 05/23/25 10:30 40 MG Hydralazine HCl 10 mg Q6HP PRN IV 05/12/25 06:30 05/23/25 21:05 10 MG Ceftriaxone Sodium 50 ml @ 100 mls/hr DAILY@09 IV 05/13/25 09:00 UNV Amino Acids 0 ml @ 0 mls/hr PER PHARMACY IV 05/13/25 16:45 Amino Acids/ Electrolytes/ Dextrose 1,000 ml @ 41 mls/hr DAILY@2200 IV 05/13/25 22:00 05/23/25 20:27 41 MLS/HR Diagnostic Test (Pha) 1 strip Q6HR 05/13/25 00:00 05/23/25 17:07 1 STRIP Insulin Human Regular FOLLOW SLIDING SCALE Q6HR SC 05/13/25 00:00 05/23/25 11:54 2 UNITS Dextrose 50 ml UD IV 05/13/25 00:00 Mupirocin 1 applic BID TOP 05/14/25 22:00 05/23/25 21:12 1 APPLIC Linezolid 300 ml @ 150 mls/hr Q12HR IV 05/15/25 22:00 UNV Albuterol 2.5 mg Q6HR NEB 05/18/25 14:00 05/23/25 18:13 2.5 MG Acetylcysteine 100 mg Q6HR NEB 05/18/25 14:00 05/23/25 18:13 100 MG Furosemide 40 mg BID IV 05/23/25 22:00 05/23/25 20:39 40 MG Methylprednisolone Sodium Succinate 40 mg DAILY IV 05/23/25 15:15 05/23/25 16:42 40 MG Vancomycin HCl 0 ml @ 0 mls/hr UD IV 05/23/25 15:15 objective Gen.: Patient lying in bed in no apparent distress. Breathing on room air. Head: Normocephalic, atraumatic. Eyes: EOMI/PERRLA. Ears: Normal hearing. Normal anatomy. Neck/trachea: Trachea midline, supple. Nose: Normal external anatomy. Mouth: Moist mucous membranes. Chest: Decreased air entry bilaterally. No wheezing or rhonchi. Cardiovascular: Positive S1, positive S2. Regular rate and rhythm. Abdomen: Positive bowel sounds in all 4 quadrants. Soft, non-tender, non- distended. : Deferred. Rectal: Deferred. Skin: Warm, dry. Intact. Extremities: 2+ radial pulses bilaterally. No lower extremity edema. Neuro: Awake, alert, oriented x3. No gross motor or sensory deficits. Cranial nerves II through XII intact. Gait not assessed. laboratory and microbiology Laboratory Tests 05/23/25 05:59 Test 05/23/25 05:59 Range/Units Serum Glucose 132 H 74-106 mg/dL Assessment/Plan Impression: Acute hypoxemic respiratory failure Altered mental status Pneumonia Sepsis Urinary tract infection Events: Remains on room air Supplemental oxygen PRN No acute events CXR reviewed, demonstrates continuing signs of pulmonary edema. Cannot r/o left lower lobe retrocardiac consolidation/pneumonia with effusion. Continue bronchodilators/Mucomyst Continue antibiotics Accu-Cheks, ISS. Clinimix for nutritional support Diurese with Lasix Monitor renal function Monitor electrolytes. Supplement as necessary. Monitor ins and outs. Maintain euvolemia. Protonix for GI ppx Labs and imaging reviewed Rest of plan as noted below. Plan: Supplemental oxygen as needed Titrate to maintain sats above 92% Incentive spirometry Continue antibiotics F/u cultures Bronchodilators Accu-Cheks, ISS. Clinimix for nutritional support Monitor renal function Diurese to euvolemia Monitor electrolytes Supplement as needed Follow up Nephrology recs Monitor blood count Transfuse blood products as needed DVT prophylaxis Prognosis: Guarded given patient's multiple co-morbidities. Rest of plan per hospitalist and other consultants. Thank you, ANITHA Vergara, for allowing me to participate in this patient's care. Further recommendations will depend on the patient's clinical course. Please do not hesitate to contact me if you have any questions or concerns. This medical document was created using an electronic medical record system with [employer] dictation system. Although these documentations are being carefully reviewed, there may still be some phonetic and typographical changes. The errors are purely typographical, due to imperfection on the software program, and do not reflect any compromise in the patient's medical care. Dietary Evaluation Review Comments: 1. TPN per pharmacy to meet Pt's daily needs at 48g Protein 1000kcal, when Tube feeding is not feasible. 2. Nepro@25 ml/hr, providing 49g proteinm 1062 [id number] free water, once NG feeding becomes feasible, Start at 10ml/hr and increase 10ml Q6hr till reach the goal rate. 3. Renal standard CCHO-60 once pt can tolerate PO feedings Expected Outcomes/Goals: gradual wt gain Plan discussed with: Patient, Other (CARMEN Verma) CC Plasma Assessment Blood Product Administration S: [id number] EDGARDO CULLEN MD May 23, 2025 23:17
[2025-05-24] VITALS (18 sets, daily range): BP systolic 114–158; BP diastolic 63–86; PULSE 73–99; RESP 9–18; TEMP 97.3–98.1; O2SAT 93–100
[2025-05-24] MEDS: ceFAZolin 1GM/50ML 50 ML IV ONE (00:03)
[2025-05-24 06:04] LABS: Hemoglobin 7.4 g/dL (13.5-17.5)
[2025-05-24 06:06] LABS: Hematocrit 22.0 % (41.0-53.0); Mean Corpuscular Hemoglobin 29.4 pg (28.0-32.0); Mean Corpuscular Volume 87.7 fL (80.0-100.0)
[2025-05-24 06:22] LABS: Alanine Aminotransferase 18 U/L (7-40); Anion Gap 14 (5-15); BUN/Creatinine Ratio 39.3 (10.0-20.0); Chloride 104 mmol/L (98-107); Magnesium 1.7 mg/dL (1.6-2.6); Potassium 3.7 mmol/L (3.5-5.1)
[2025-05-24 06:23] LABS: INR 1.14 (0.9-1.15); Partial Thromboplastin Time 39.8 SEC (24.5-34.5); Prothrombin Time 11.9 sec (9.3-11.8)
[2025-05-24 06:36] LABS: Albumin 2.4 g/dL (3.2-4.8); Alkaline Phosphatase 248 U/L (46-116); Bilirubin, Total < 0.2 mg/dL (0.2-1.0); Calcium 7.8 mg/dL (8.7-10.4); Carbon Dioxide 18 mmol/L (20-31); Glucose 121 mg/dL (74-106); Sodium 136 mmol/L (136-145); Total Protein 5.6 g/dL (5.7-8.2)
[2025-05-24 06:39] LABS: Blood Urea Nitrogen 129 mg/dL (9-23)
[2025-05-24 06:50] LABS: Nucleated Red Blood Cells % 1.0 %; Total Cells Counted 100.0 (100)
--- NOTE | 2025-05-24 07:47 | DVHPN2 ---
Progress Note - Dictate Date Seen: May 24, 2025 Medical Necessity Reason Pt with a Central, PICC or Fol: Yes The following are medically ne: Smith Catheter Reason for smith catheter: Strict I&O vital signs Vital Sign Date Time Temp Pulse Resp B/P (MAP) Pulse Ox O2 Delivery O2 Flow Rate FiO2 05/24/25 07:40 87 18 97 05/24/25 07:34 Room Air* 0 21 05/24/25 05:00 98.0 158/79 (105) 98.0 medications Current Medications Medications Dose Ordered Sig/Wai Route Start Time Stop Time Status Last Admin Dose Admin Nitroglycerin 0.4 mg Q5MINP PRN SL 05/09/25 23:15 Vancomycin HCl 0 ml @ 0 mls/hr UD IV 05/09/25 23:15 Cancel Pantoprazole Sodium 40 mg DAILY IV 05/10/25 10:00 05/23/25 10:30 40 MG Hydralazine HCl 10 mg Q6HP PRN IV 05/12/25 06:30 05/23/25 21:05 10 MG Ceftriaxone Sodium 50 ml @ 100 mls/hr DAILY@09 IV 05/13/25 09:00 UNV Amino Acids 0 ml @ 0 mls/hr PER PHARMACY IV 05/13/25 16:45 Amino Acids/ Electrolytes/ Dextrose 1,000 ml @ 41 mls/hr DAILY@2200 IV 05/13/25 22:00 05/23/25 20:27 41 MLS/HR Diagnostic Test (Pha) 1 strip Q6HR 05/13/25 00:00 05/24/25 06:19 1 STRIP Insulin Human Regular FOLLOW SLIDING SCALE Q6HR SC 05/13/25 00:00 05/24/25 06:19 2 UNITS Dextrose 50 ml UD IV 05/13/25 00:00 Mupirocin 1 applic BID TOP 05/14/25 22:00 05/23/25 21:12 1 APPLIC Linezolid 300 ml @ 150 mls/hr Q12HR IV 05/15/25 22:00 UNV Albuterol 2.5 mg Q6HR NEB 05/18/25 14:00 05/24/25 07:34 2.5 MG Acetylcysteine 100 mg Q6HR NEB 05/18/25 14:00 05/24/25 07:34 100 MG Furosemide 40 mg BID IV 05/23/25 22:00 05/23/25 20:39 40 MG Methylprednisolone Sodium Succinate 40 mg DAILY IV 05/23/25 15:15 05/23/25 16:42 40 MG Vancomycin HCl 0 ml @ 0 mls/hr UD IV 05/23/25 15:15 laboratory and microbiology Laboratory Tests 05/24/25 05:03 Test 05/24/25 05:03 Range/Units Serum Glucose 121 H 74-106 mg/dL Assessment/Plan Patient is a 44-year-old gentleman who presented with altered mental status/shortness of breath. He is at baseline poor historian. Information was obtained by reviewing the chart and communicating with staff. It seems that since arrival the patient was found to have severe sepsis and multiorgan dysfunction. He has been on supplemental oxygen. 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 Reportedly on arrival to Emergency room blood pressure was low on later improved. Cardiology is involved for cardiac aspects of care. There is no report of chest pain. Lying flat in bed. No JVD. Mucosa is pink and wet. Scattered rhonchi in the lungs is heard. Cardiac: Regular, tachycardic, no thrill. Systolic murmur 2/6 in apex is heard. Abdomen is soft. There is no gross mass. There is no hepatomegaly. Extremities do not reveal edema. Dorsalis pedis is 2+ bilateral Past medical history reportedly includes old history of CVA with poor functional capacity, CKD, hypertension, hyperlipidemia, diabetes mellitus, repeated history of sepsis, history of urethral stricture and recurrent UTI, history of phimosis anemia and bed-bound at baseline. There was question if the patient has baseline history of diastolic heart failure Echocardiogram of December 2024 revealed ejection fraction of 64%, trace MR/TR and right ventricular systolic pressure of 34 mm Hg. WBC: 26.7 - 20.8 - 29.9 - 29.4 - 28.9 - 21.8 - 18.4 - 16.0 - 13.0 - 7.6 - 6.6 - 6.4 Hemoglobin: 5.9 - 6.8 - 7.8 - 9.0 - 9.5 - 8.5 - 8.4 - 8.7 - 8.9 - 7.8 - 7.2 - 7.4 BNP: 528.66 - 280.34 Creatinine: 5.69 - 5.7 - 4.72 - 4.86 - 4.67 - 4.73 - 4.70 - 4.77 - 4.84 - 4.51 - 4.46 - 4.03 - 4.03 - 3.88 - 3.69 - 3.36 - 3.29 - 3.34 - 3.22 - 3.25 - 3.32 - 3.28 - 3.28 Potassium: 8.0 - 7.6 - 5.8 - 5.8 - 5.0 - 5.0 - 5.0 - 4.9 - 4.4 - 3.9 - 3.2 - 3.2 - 3.4 - 4.0 - 3.7 - 3.8 - 3.5 - 3.5 - 3.5 - 3.5 - 3.3 - 3.7 Sodium: 147 - 146 - 153 - 154 - 157 - 155 - 154 - 152 - 150 - 150 - 147 - 147 - 143 - 140 - 134 - 135 - 134 - 135 - 134 - 134 - 134 - 136 AST/ALT: 96/66 - 468/478 - 257/349 - 15/118 - 11/67 - 10/42 - 13/30 - 11/24 - / - 08/04 - <8/ - 11/11 Troponin (high sensitive): 81 - 89 - 92 Chest x-ray reported: IMPRESSION: Findings suggest a mild degree of pulmonary edema which is decreased compared to the prior study on 01/11/2025. Pneumonia is considered less likely Repeat chest xry revealed: IMPRESSION: 1. No interval change. Repeat chest xry revealed: 1. Increase in patchy and confluent bilateral airspace opacities which could reflect worsening multifocal pneumonia and/or pulmonary edema. 2. Probable bilateral pleural effusions, greater on the left. Repeat chest xry revealed: IMPRESSION: Improving multifocal pneumonia. Repeat chest xry revealed: IMPRESSION: Cardiomegaly with pulmonary vascular congestion and bilateral patchy airspace opacities, significantly worsened. Moderate left and small right pleural effusions. Repeat chest xry revealed: IMPRESSION: 1. Continuing signs of pulmonary edema. Can not left lower lobe retrocardiac consolidation/ pneumonia with effusion CT of Head revealed: IMPRESSION: No intracranial hemorrhage or mass effect. Advanced chronic microvascular ischemic changes with old infarcts as described. Large right mastoid effusion. Renal ultrasound reported: IMPRESSION: Bilateral medical renal disease. EKG revealed sinus tachycardia Tele shows sinus tachycardia Echocardiogram revealed: Left ventricle: Mild diffuse hypokinesis of left ventricle was seen. LVEF was around 50%. Right ventricle was normal size with mildly reduced systolic function. Both atria were normal size. Aortic valve was trileaflet. There was no aortic insufficiency/stenosis. There was mild mitral/tricuspid regurgitation. There was no pulmonary valve insufficiency. Right ventricular systolic pressure was assessed at 35 mm Hg. There was trace pericardial effusion. Patient is a 44-year-old gentleman who was at baseline bed-bound with old history of CVA who presented with altered mental status and shortness of breath. Presentation is in favor acute respiratory failure secondary to sepsis. Multiorgan failure secondary to sepsis is considered. Minimal increase in troponin is considered to reflect demand ischemia in a patient with questionable history of diastolic heart failure. In December 2024 ejection fraction in echocardiogram was 64% with no specific increase in right ventricular systolic pressure. Acute respiratory failure Sepsis Encephalopathy, metabolic versus toxic LISANDRO on CKD ATN Demand ischemia Hypernatremia Hypokalemia Anemia Cardiac suggestion for management: Manage in tele Fluid resuscitation as per Nephrology Follow-up electrolytes and kidney function tests and correct abnormalities Aspirin: 81 mg daily with old history of CVA is suggested DVT prophylaxis as per primary team Has failed swallowing evaluation Cardiac ramirez, patient is moderate risk patient for low to moderate risk EGD/PEG placement. Cardiac ramirez, you can proceed with the EGD/PEG placement under appropriate intra and post operative hemodynamic monitoring. Avoid Hypotension. Management of sepsis/infection as per primary team Pulmonary follow-up Nephrology follow up Recognizing co-morbidities, prognosis is gaurded. Further evaluation and management depends on the above and clinical course A total of 55 minutes was spent reviewing the patient record, examining the patient, making a diagnostic and therapeutic plan, discussing this plan with medical personnel, following up on diagnostic studies and following the patient for clinical stability excluding any and all procedures. At least 50% of this time was spent in direct, [id number] contact. Thank you for allowing me to participate in this patient's care. Further recommendations will depend on patient's clinical course. Please do not hesitate to contact me if you have any questions or concerns. This medical document was created using electronic medical record system with [email or web address] dictation system. Although this document has been carefully reviewed, there may still be some phonetic and typographical errors. These areas are purely typographical due to the imperfection of the software programs, and do not reflect any compromise in the patient's medical care. Dietary Evaluation Review Comments: 1. TPN per pharmacy to meet Pt's daily needs at 48g Protein 1000kcal, when Tube feeding is not feasible. 2. Nepro@25 ml/hr, providing 49g proteinm 1062 [id number] free water, once NG feeding becomes feasible, Start at 10ml/hr and increase 10ml Q6hr till reach the goal rate. 3. Renal standard CCHO-60 once pt can tolerate PO feedings Expected Outcomes/Goals: gradual wt gain Plan discussed with: Other (nurse) CC Plasma Assessment Blood Product Administration S: [id number] FAN HAMEED MD May 24, 2025 07:46
[2025-05-24] MEDS: VANCOMYCIN 1GM/200ML PM 200 ML IV ONE (10:00)
--- NOTE | 2025-05-24 10:22 | DVHPN2 ---
Progress Note - Dictate Date Seen: May 24, 2025 Medical Necessity Reason Pt with a Central, PICC or Fol: Yes The following are medically ne: Smith Catheter Reason for smith catheter: Strict I&O vital signs Vital Sign Date Time Temp Pulse Resp B/P (MAP) Pulse Ox O2 Delivery O2 Flow Rate FiO2 05/24/25 09:59 96 Room Air 0.0 05/24/25 09:59 21 05/24/25 09:59 146/83 05/24/25 09:00 98.1 78 15 98.1 medications Current Medications Medications Dose Ordered Sig/Wai Route Start Time Stop Time Status Last Admin Dose Admin Nitroglycerin 0.4 mg Q5MINP PRN SL 05/09/25 23:15 Vancomycin HCl 0 ml @ 0 mls/hr UD IV 05/09/25 23:15 Cancel Pantoprazole Sodium 40 mg DAILY IV 05/10/25 10:00 05/24/25 10:00 40 MG Hydralazine HCl 10 mg Q6HP PRN IV 05/12/25 06:30 05/23/25 21:05 10 MG Ceftriaxone Sodium 50 ml @ 100 mls/hr DAILY@09 IV 05/13/25 09:00 UNV Amino Acids 0 ml @ 0 mls/hr PER PHARMACY IV 05/13/25 16:45 Amino Acids/ Electrolytes/ Dextrose 1,000 ml @ 41 mls/hr DAILY@2200 IV 05/13/25 22:00 05/23/25 20:27 41 MLS/HR Diagnostic Test (Pha) 1 strip Q6HR 05/13/25 00:00 05/24/25 06:19 1 STRIP Insulin Human Regular FOLLOW SLIDING SCALE Q6HR SC 05/13/25 00:00 05/24/25 06:19 2 UNITS Dextrose 50 ml UD IV 05/13/25 00:00 Mupirocin 1 applic BID TOP 05/14/25 22:00 05/24/25 10:00 1 APPLIC Linezolid 300 ml @ 150 mls/hr Q12HR IV 05/15/25 22:00 UNV Albuterol 2.5 mg Q6HR NEB 05/18/25 14:00 05/24/25 07:34 2.5 MG Acetylcysteine 100 mg Q6HR NEB 05/18/25 14:00 05/24/25 07:34 100 MG Furosemide 40 mg BID IV 05/23/25 22:00 05/24/25 09:59 40 MG Methylprednisolone Sodium Succinate 40 mg DAILY IV 05/23/25 15:15 05/24/25 10:00 40 MG Vancomycin HCl 0 ml @ 0 mls/hr UD IV 05/23/25 15:15 objective General Appearance: alert, no distress HEENT: EOMI, PERRLA, normal external inspect of ears, no icterus, no nasal drainage Neck: no carotid bruit, no jugular venous distention (JVD), no lymphadenopathy Chest: normal thorax Respiratory: clear to auscultation, normal air movement Cardiovascular: regular rate and rhythm, no diastolic murmur, no jugular venous distention (JVD), no rub, no systolic murmur Abdominal: soft, no hepatomegaly, no mass, no splenomegaly, no tenderness Genitourinary: grossly normal external Musculoskeletal: no joint tenderness, no swelling Extremities: normal pulses, no calf tenderness, no clubbing, no cyanosis, no edema Skin: no bruising, no jaundice, no rash Neurological: alert, No focal deficit laboratory and microbiology Laboratory Tests 05/24/25 05:03 Test 05/24/25 05:03 Range/Units Serum Glucose 121 H 74-106 mg/dL Problem List 1. Sepsis IV Abx 2. Acute on chronic anemia Medications, Monitoring 3. LISANDRO with CKD 3b Nephrology consult 4. Bed bound Monitoring 5. CVA with residual deficits Monitoring 6. NSTEMI II, demand ischemia Cardiology consult, monitor EKG 7. MRSA w/ Nares Medications, Monitoring 8. Hyperkalemia r/t LISANDRO Hyperkalemia Tx 9. Hypoglycemia Medications, Monitoring Assessment/Plan Subjective Patient mentation has no change. Objective CT of the head is negative for CVA. Patient has persistent septic metabolic encephalopathy. Patient has pneumonia. Patient was started on Med-Neb treatments with chest physiotherapy. Patient is status post PEG tube placement today. Patient has failed several swallow eval's. Plan GI to clear patient to start tube feedings. Will keep patient in the hospital to monitor for tolerance to tube feedings. DC planning home with home health. G-tube feeds once cleared by GI. Dietary Evaluation Review Comments: 1. TPN per pharmacy to meet Pt's daily needs at 48g Protein 1000kcal, when Tube feeding is not feasible. 2. Nepro@25 ml/hr, providing 49g proteinm 1062 [id number] free water, once NG feeding becomes feasible, Start at 10ml/hr and increase 10ml Q6hr till reach the goal rate. 3. Renal standard CCHO-60 once pt can tolerate PO feedings Expected Outcomes/Goals: gradual wt gain Plan discussed with: Patient, Other CC Plasma Assessment Blood Product Administration S: [id number] RAÚL STEEL NP May 24, 2025 10:22
--- NOTE | 2025-05-24 14:24 | DVHINCON2 ---
Date of service: May 24, 2025 Family History: FH: diabetes mellitus FHx: stroke Allergies: Coded Allergies: NO KNOWN ALLERGIES (Unverified , 07/19/23) Home Meds Active Scripts Sodium Bicarbonate (Sodium Bicarbonate) 650 Mg Tab, 650 MG PO TID for 30 Days, #90 TAB Prov:RAÚL STEEL BELT FIXER 01/11/25 Furosemide (Furosemide) 40 Mg Tab, 40 MG PO DAILY for 30 Days, #30 TAB Prov:RAÚL STEEL BELT FIXER 01/11/25 Atorvastatin Calcium (ATORVASTATIN CALCIUM) 20 Mg Tab, 20 MG PO HS for 30 Days, #30 TAB Prov:RAÚL STEEL BELT FIXER 01/11/25 Reported Medications Tamsulosin Hcl (Tamsulosin Hcl) 0.4 Mg Cap, 1 CAP PO DAILY for 30 Days, #30 12/31/24 Lisinopril (Lisinopril) 40 Mg Tab, 1 TAB PO DAILY for 30 Days, #30 12/31/24 Amlodipine Besylate (Amlodipine Besylate) 10 Mg Tab, 1 TAB PO DAILY for 30 Days, #30 12/31/24 Metformin Hydrochloride (Metformin Hcl) 500 Mg Tab, 1 TAB PO DAILY for 30 Days, #30 TAKE 1 TABLET BY MOUTH ONCE DAILY WITH BREAKFAST. 12/31/24 Glipizide (Glipizide Er) 5 Mg Tab, 1 TAB PO DAILY for 30 Days, #30 TAKE 1 TABLET BY MOUTH ONCE DAILY WITH BREAKFAST. 12/31/24 Current Medications Current Medications Medications (Trade) Dose Ordered Sig/Wai Route PRN Reason Start Time Stop Time Status Last Admin Furosemide (Lasix Injection) 40 mg BID IV 05/23/25 22:00 05/24/25 09:59 Potassium Chloride 100 ml @ 50 mls/hr Q2H IV 05/23/25 15:00 05/23/25 18:59 DC 05/23/25 20:40 Methylprednisolone Sodium Succinate (Solu Medrol) 40 mg DAILY IV 05/23/25 15:15 05/24/25 10:00 Vancomycin HCl 0 ml @ 0 mls/hr UD IV 05/23/25 15:15 Vital Signs Vital Signs Date Time Temp Pulse Resp B/P (MAP) Pulse Ox O2 Delivery O2 Flow Rate FiO2 05/24/25 12:00 79 16 100 05/24/25 11:54 Room Air* 0 21 05/24/25 09:59 146/83 05/24/25 09:00 98.1 98.1 Labs/Diagnostic Data Labs Test 05/24/25 05:03 05/24/25 05:02 05/23/25 05:59 05/18/25 13:06 Range/Units White Blood Count 6.4 4.4-10.8 10^3/uL Red Blood Count 2.50 L 4.5-5.90 10^6/uL Hemoglobin 7.4 L 13.5-17.5 g/dL Hematocrit 22.0 L 41.0-53.0 % Mean Corpuscular Volume 87.7 80.0-100.0 fL Mean Corpuscular Hemoglobin 29.4 28.0-32.0 pg Mean Corpuscular Hemoglobin Concent 33.6 32.0-36.0 g/dL Red Cell Distribution Width 16.4 H 11.8-14.3 % Platelet Count 192 140-450 10^3/uL Mean Platelet Volume 11.7 H 6.9-10.8 fL Neutrophils (%) (Auto) 37.0-80.0 % Lymphocytes (%) (Auto) 10.0-50.0 % Monocytes (%) (Auto) 0.0-12.0 % Basophils (%) (Auto) 0.0-2.0 % Neutrophils # (Auto) 1.6-8.6 10 ^3/uL Lymphocytes # (Auto) 0.4-5.4 10 ^3/uL Monocytes # (Auto) 0-1.3 10 ^3/uL Differential Total Cells Counted 100.0 100 Neutrophils % (Manual) 99 H 37.0-80.0 Band Neutrophils % (Manual) 0 Lymphocytes % (Manual) 1 L 10.0-50.0 Monocytes % (Manual) 0 0-12 Eosinophils % (Manual) 0 0-7 Basophils % (Manual) 0 0.0-2.0 Metamyelocytes % (manual) 0 Myelocytes % (Manual) 0 Promyelocytes % (Manual) 0 Blast Cells % (Manual) 0 Nucleated Red Blood Cells 1.0 % Reactive Lymphocytes 0 Platelet Estimate Adequate Prothrombin Time 11.9 H 9.3-11.8 sec Prothrombin Time INR 1.14 0.9-1.15 Activated Partial Thromboplast Time 39.8 H 24.5-34.5 SEC Sodium Level 136 136-145 mmol/L Potassium Level 3.7 3.5-5.1 mmol/L Chloride Level 104 98-107 mmol/L Carbon Dioxide Level 18 L 20-31 mmol/L Anion Gap 14 5-15 Blood Urea Nitrogen 129 #*H 9-23 mg/dL Creatinine 3.28 H 0.700-1.30 mg/dL Glomerular Filtration Rate Calc 23 >90 mL/min BUN/Creatinine Ratio 39.3 H 10.0-20.0 Serum Glucose 121 H 74-106 mg/dL Calcium Level 7.8 L 8.7-10.4 mg/dL Phosphorus Level 6.5 H 2.4-5.1 mg/dL Magnesium Level 1.7 1.6-2.6 mg/dL Total Bilirubin < 0.2 L 0.2-1.0 mg/dL Aspartate Amino Transferase (AST) 12 <34 U/L Alanine Aminotransferase (ALT) 18 7-40 U/L Alkaline Phosphatase 248 H 46-116 U/L Total Protein 5.6 L 5.7-8.2 g/dL Albumin 2.4 L 3.2-4.8 g/dL Random Vancomycin Level 27.5 H 5-10 ug/mL POC Glucose 134 H 70-106 mg/dl Eosinophils (%) (Auto) 3.8 0.0-7.0 % Eosinophils # (Auto) 0.3 0-0.8 10 ^3/uL Basophils # (Auto) 0.1 0-0.2 10 ^3/uL B-Type Natriuretic Peptide 280.34 0-100 pg/mL Vitamin D 25-Hydroxy 17.1 L 30.0-100 ng/mL Parathyroid Hormone (Intact) 201.1 H 18.4-80.1 pg/mL Test 05/18/25 05:59 05/12/25 04:08 05/11/25 03:45 05/10/25 18:12 Range/Units Estimated GFR () 26 mL/min Estimated GFR (Non- 21 mL/min Large Platelets Few Poikilocytosis (manual) Slight Jennifer Cells Few Schistocytes Few Blood Gas Specimen Type Arterial Blood Gas Sample Site Left brachial Blood Gas Patient Temperature 37.0 Arterial Blood Date Drawn [id number] Arterial Blood pH 7.390 7.350-7.450 Arterial Blood Partial Pressure CO2 22.6 L 35.0-48.0 mmHg Arterial Blood Partial Pressure O2 74.0 L 83.0-108.0 mmHg Arterial Blood HCO3 13.4 L 21.0-28.0 mmol/L Arterial Blood Oxygen Saturation 93.6 L 94.0-98.0 % Arterial Blood Base Excess -9.9 L -2.0-3.0 mmol/L Arterial Blood Oxyhemoglobin 92.5 L 94.0-98.0 % Arterial Blood Carboxyhemoglobin 0.5 0.5-1.5 % Arterial Blood Methemoglobin 0.7 0.0-1.5 % Alberto Test N/a Blood Gas Total Hemoglobin 11.00 L 13.5-17.5 g/dL Blood Gas Modality Room air FiO2 % 21.0 Test 05/10/25 15:39 05/10/25 08:58 05/10/25 04:45 05/10/25 02:49 Range/Units Lactic Acid Level 0.7 0.4-2.0 mmol/L Blood Gas Critical Value Read Back Yes Blood Gas Notified Whom Braid Folder. aren castaneda Blood Gas Notified Time [id number] Blood Gas Notified By Nyla baptiste Urine Color Colorless Yellow Urine Clarity Ex.turbid Clear Urine pH 6.0 5.0-9.0 Urine Specific [place] 1.012 1.001-1.035 Urine Protein 2+ H Negative Urine Ketones Negative Negative Urine Blood 3+ H Negative /uL Urine Nitrite Negative Negative Urine Bilirubin Negative Negative Urine Urobilinogen Normal Negative mg/dL Urine Leukocyte Esterase 3+ Negative /uL Urine RBC 854 0 - 3 /hpf Urine WBC Clumps Present None Seen /hpf Urine Microscopic WBC 665 H 0-3 /HPF Urine Squamous Epithelial Cells None seen <5 /hpf Urine Bacteria None seen None Seen /hpf Urine Creatinine 15.58 L 30.0-125.0 mg/dL Urine Protein/Creatinine Ratio 28.82 Urine Sodium 108 40-220 mmol/L Urine Glucose 1+ H Normal mg/dL Urine Total Protein 449.0 H 1-14 mg/dL Influenza Type A Antigen Negative Negative Influenza Type B Antigen Negative Negative SARS-CoV-2 Antigen (Rapid) Negative NEGATIVE Test 05/09/25 23:49 05/09/25 22:33 05/09/25 19:30 Range/Units Venous Blood pH 7.003 *L 7.320-7.430 Venous Blood pCO2 at Patient Temp 16.6 L 38.0-54.0 mmHg Venous Blood pO2 at Patient Temp 49.3 H 23.0-48.0 mmHg Venous Blood HCO3 4.0 L 22.0-29.0 mmol/L Venous Bld O2 Saturation (Measured) 66.0 60.0-85.0 % Venous Blood Base Excess -24.9 L -2.0-3.0 mmol/L Venous Blood Total Hemoglobin 5.5 L 13.5-17.5 g/dL Venous Blood Oxyhemoglobin 65.0 0.0-79.0 % Venous Blood Carboxyhemoglobin 0.4 L 0.5-1.5 % Venous Blood Methemoglobin 1.1 0.0-1.5 % Blood Gas Spontaneous Rate 26 Troponin I High Sensitivity 92 *H </=54 ng/L Beta-Hydroxybutyric Acid 0.515 H < 0.4 mmol/L Microbiology Date/Time Source Procedure Growth Status 05/11/25 23:45 Voided Urine Urine Culture - Final Yeast, not Diana albicans Complete 05/10/25 02:49 Nose MRSA Screen - Final Methicillin Resistant S.aureus Complete 05/09/25 19:30 Blood Blood Culture - Final NO GROWTH AFTER 5 DAYS OF INCUBATION. Complete Assessment [id number] AFEBRILE VSS DEHYDRATION PLACEMENT PEG EGD BY DR Dorcas PALMER EBL LESS THAN 1 CC NO DRAINS NO COMPLICATIONS Plan discussed with: Other OTILIA PALMER MD May 24, 2025 14:24
[2025-05-24] MEDS: ACCU-CHEK COMFORT CURVE STRIP VI ONE (14:30)
--- NOTE | 2025-05-24 14:46 | DVHOP ---
DATE OF SURGERY: 05/24/2025 PREOPERATIVE DIAGNOSIS: Dehydration and malnutrition. POSTOPERATIVE DIAGNOSIS: Dehydration and malnutrition. PROCEDURE: PEG placement in conjunction with Dr. Benjamin Verdin's endoscopy. She will be dictating her part. DESCRIPTION OF PROCEDURE: The patient was prepped and draped in the usual sterile fashion in the supine position and the upper abdomen area exposed. The endoscopy was carried out and a suitable spot was selected in the upper abdomen after the light was seen shining through. Lidocaine was infiltrated in the vicinity and a small incision was applied and then an Angiocath needle was advanced through the incision into the anterior wall of the stomach and visualized by the endoscope. The needle was withdrawn. The trocar was left in place and then the guidewire was advanced through the trocar and grasped by the endoscope and pulled out of the mouth. The PEG tube was engaged with the guidewire, pulled back into the mouth, and the cuff was then located well within the anterior wall of the stomach and the remaining connection was established. A dressing was applied. The patient tolerated the procedure well. Repeat endoscopy was carried out by Dr. Benjamin Verdin and she will be dictating her part. MD GUNNER Dyer/ADAN TID: [id number] RECEIPT: [id number] cc: RAÚL Betancourt
--- NOTE | 2025-05-24 14:48 | DVHINCON2 ---
DATE OF CONSULTATION: 05/24/2025 HISTORY OF PRESENT ILLNESS: The patient is 44 years old, unable to give history. I was asked to see him in regards to placement of a PEG in conjunction with Dr. Benjamin Verdin's endoscopy. He has a history of stroke, residual deficits, CKD, diabetes, urethral stricture, recurrent UTIs, previous admissions for sepsis and acute kidney injury. He was brought by the EMS with shortness of breath, difficulty breathing. PAST MEDICAL HISTORY: History of stroke with residual deficits, CKD, diabetes, urethral stricture, recurrent UTIs, and with ongoing sepsis and now currently dehydrated with lack of nutrition. PHYSICAL EXAMINATION: VITAL SIGNS: Afebrile. Stable signs. HEENT: With no evidence of pallor, cyanosis, or jaundice. NECK: Supple and nontender with no thyromegaly or lymphadenopathy. CHEST AND LUNGS: Clear. HEART: Within normal limits. ABDOMEN: Soft. EXTREMITIES: Unremarkable. NEUROLOGIC: Not assessed. CLINICAL IMPRESSION: Dehydration and malnutrition. PLAN: Consider placement of PEG in conjunction with Dr. Benjamin Verdin's endoscopy. Jeovanny Verdin MD RG/JOSE TID: [id number] RECEIPT: [id number] cc: Sil Betancourt
--- NOTE | 2025-05-24 15:54 | DVHOP2 ---
Operative Report DATE OF OPERATION: 05/24/25 PROCEDURE: Upper Endoscopy with PEG tube placement. PREOPERATIVE INDICATION: The patient is a 44 -year-old male undergoing endoscopy for failure to thrive failed swallow evaluations history of multiple strokes and underlying cerebral palsy POSTOPERATIVE DIAGNOSES: 1. Upper endoscopy was essentially normal 2. A PEG tube was placed through the anterior abdominal wall into the distal body of the stomach as per standard protocol and the placement was confirmed by repeat endoscopy PROCEDURE PERFORMED BY: Chante Verdin GI NURSE: Darleen SCOPE: Olympus videoendoscope. ASA CLASS: 3 PREOPERATIVE MEDICATIONS: Mac Dr. Nicolas borjas PROCEDURE IN DETAIL: After obtaining an informed consent, the patient was placed on left lateral decubitus position. The patient was then sedated with the above medications. A bite block was placed between his teeth. The endoscope was then passed through the oropharynx, into the esophagus, and through the stomach and pylorus up to the second and third part of the duodenum. The endoscope was then withdrawn. The upper endoscopy with a essentially a normal examination no significant GERD or gastritis The light from the endoscope could clearly be visualized through the anterior abdominal wall. A percutaneous gastrostomy tube was placed through the anterior abdominal wall by Dr Layo Verdin into the distal body of the stomach using endoscopic guidance and assistance as per standard protocol. A repeat endoscopy was performed to confirm the adequate placement. Phalange marking was at 2 cm . The patient tolerated the procedure well without difficulty. COMPLICATIONS : None SPECIMENS: None DISPOSITION: Transfer back to the floor Stable PLAN: 1. Do not use G-tube today 2. See postop PEG tube care instructions 3. Start G-tube feedings tomorrow after monitoring for residuals 4. Discharge planning as per hospitalist CHANTE VERDIN MD May 24, 2025 15:54
--- NOTE | 2025-05-24 23:55 | DVHPN2 ---
Progress Note - Dictate Date Seen: May 24, 2025 Medical Necessity Reason Pt with a Central, PICC or Fol: Yes The following are medically ne: Smith Catheter Reason for smith catheter: Strict I&O Subjective Patient seen and examined at bedside. Breathing comfortably on room air. Overnight events reviewed. vital signs Vital Sign Date Time Temp Pulse Resp B/P (MAP) Pulse Ox O2 Delivery O2 Flow Rate FiO2 05/24/25 21:50 149/89 05/24/25 20:12 75 16 100 05/24/25 20:05 Room Air 05/24/25 20:05 0 21 05/24/25 16:47 97.7 97.7 medications Current Medications Medications Dose Ordered Sig/Wia Route Start Time Stop Time Status Last Admin Dose Admin Nitroglycerin 0.4 mg Q5MINP PRN SL 05/09/25 23:15 Vancomycin HCl 0 ml @ 0 mls/hr UD IV 05/09/25 23:15 Cancel Pantoprazole Sodium 40 mg DAILY IV 05/10/25 10:00 05/24/25 10:00 40 MG Hydralazine HCl 10 mg Q6HP PRN IV 05/12/25 06:30 05/23/25 21:05 10 MG Ceftriaxone Sodium 50 ml @ 100 mls/hr DAILY@09 IV 05/13/25 09:00 UNV Amino Acids 0 ml @ 0 mls/hr PER PHARMACY IV 05/13/25 16:45 Amino Acids/ Electrolytes/ Dextrose 1,000 ml @ 41 mls/hr DAILY@2200 IV 05/13/25 22:00 05/24/25 21:50 41 MLS/HR Diagnostic Test (Pha) 1 strip Q6HR 05/13/25 00:00 05/24/25 17:30 1 STRIP Insulin Human Regular FOLLOW SLIDING SCALE Q6HR SC 05/13/25 00:00 05/24/25 06:19 2 UNITS Dextrose 50 ml UD IV 05/13/25 00:00 Mupirocin 1 applic BID TOP 05/14/25 22:00 05/24/25 21:51 1 APPLIC Linezolid 300 ml @ 150 mls/hr Q12HR IV 05/15/25 22:00 UNV Albuterol 2.5 mg Q6HR NEB 05/18/25 14:00 05/24/25 20:05 2.5 MG Acetylcysteine 100 mg Q6HR NEB 05/18/25 14:00 05/24/25 20:05 100 MG Furosemide 40 mg BID IV 05/23/25 22:00 05/24/25 21:50 40 MG Methylprednisolone Sodium Succinate 40 mg DAILY IV 05/23/25 15:15 05/24/25 10:00 40 MG Vancomycin HCl 0 ml @ 0 mls/hr UD IV 05/23/25 15:15 Enteral Nutritional Formula 240 ml Q6HR PO 05/25/25 06:00 objective Gen.: Patient lying in bed in no apparent distress. Breathing on room air. Head: Normocephalic, atraumatic. Eyes: EOMI/PERRLA. Ears: Normal hearing. Normal anatomy. Neck/trachea: Trachea midline, supple. Nose: Normal external anatomy. Mouth: Moist mucous membranes. Chest: Decreased air entry bilaterally. No wheezing or rhonchi. Cardiovascular: Positive S1, positive S2. Regular rate and rhythm. Abdomen: Positive bowel sounds in all 4 quadrants. Soft, non-tender, non- distended. : Deferred. Rectal: Deferred. Skin: Warm, dry. Intact. Extremities: 2+ radial pulses bilaterally. No lower extremity edema. Neuro: Awake, alert, oriented x3. No gross motor or sensory deficits. Cranial nerves II through XII intact. Gait not assessed. laboratory and microbiology Laboratory Tests 05/24/25 05:03 Test 05/24/25 05:03 Range/Units Serum Glucose 121 H 74-106 mg/dL Assessment/Plan Impression: Acute hypoxemic respiratory failure Altered mental status Pneumonia Sepsis Urinary tract infection Events: Remains on room air Supplemental oxygen PRN Status post PEG. Continue bronchodilators/Mucomyst Continue antibiotics Accu-Cheks, ISS. Clinimix for nutritional support Diurese with Lasix Monitor renal function Monitor electrolytes. Supplement as necessary. Monitor ins and outs. Maintain euvolemia. Protonix for GI ppx CXR on 05/23 demonstrates continuing signs of pulmonary edema. Cannot r/o left lower lobe retrocardiac consolidation/pneumonia with effusion. Labs and imaging reviewed Rest of plan as noted below. Plan: Supplemental oxygen as needed Titrate to maintain sats above 92% Incentive spirometry Continue antibiotics F/u cultures Bronchodilators Accu-Cheks, ISS. Clinimix for nutritional support Monitor renal function Diurese to euvolemia Monitor electrolytes Supplement as needed Follow up Nephrology recs Monitor blood count Transfuse blood products as needed DVT prophylaxis Prognosis: Guarded given patient's multiple co-morbidities. Rest of plan per hospitalist and other consultants. Thank you, ANITHA Vergara, for allowing me to participate in this patient's care. Further recommendations will depend on the patient's clinical course. Please do not hesitate to contact me if you have any questions or concerns. This medical document was created using an electronic medical record system with [employer] dictation system. Although these documentations are being carefully reviewed, there may still be some phonetic and typographical changes. The errors are purely typographical, due to imperfection on the software program, and do not reflect any compromise in the patient's medical care. Dietary Evaluation Review Comments: 1. TPN per pharmacy to meet Pt's daily needs at 48g Protein 1000kcal, when Tube feeding is not feasible. 2. Nepro@25 ml/hr, providing 49g proteinm 1062 [id number] free water, once NG feeding becomes feasible, Start at 10ml/hr and increase 10ml Q6hr till reach the goal rate. 3. Renal standard CCHO-60 once pt can tolerate PO feedings Expected Outcomes/Goals: gradual wt gain Plan discussed with: Patient, Other (CARMEN Bustamante) CC Plasma Assessment Blood Product Administration S: [id number] EDGARDO CULLEN MD May 24, 2025 23:55
[2025-05-25] VITALS (19 sets, daily range): BP systolic 133–152; BP diastolic 74–96; PULSE 68–95; RESP 14–18; TEMP 97–98.3; O2SAT 93–100
[2025-05-25] MEDS: ENSURE CLEAR Apple 8oz Carton PO SCH (05:45)
[2025-05-25 06:08] LABS: Hematocrit 23.2 % (41.0-53.0); Hemoglobin 7.6 g/dL (13.5-17.5); Mean Corpuscular Hemoglobin 29.0 pg (28.0-32.0); Mean Corpuscular Volume 88.1 fL (80.0-100.0); Nucleated Red Blood Cells % 0.4 %
[2025-05-25 06:32] LABS: Alanine Aminotransferase 16 U/L (7-40); Anion Gap 15 (5-15); BUN/Creatinine Ratio 39.6 (10.0-20.0); Chloride 104 mmol/L (98-107); Magnesium 1.8 mg/dL (1.6-2.6); Potassium 3.6 mmol/L (3.5-5.1); Total Protein 5.8 g/dL (5.7-8.2)
[2025-05-25 07:04] LABS: Albumin 2.5 g/dL (3.2-4.8); Alkaline Phosphatase 217 U/L (46-116); Bilirubin, Total 0.2 mg/dL (0.2-1.0); Calcium 8.0 mg/dL (8.7-10.4); Carbon Dioxide 16 mmol/L (20-31); Glucose 118 mg/dL (74-106); Sodium 135 mmol/L (136-145)
[2025-05-25 07:06] LABS: Blood Urea Nitrogen 133 mg/dL (9-23)
[2025-05-25 07:27] LABS: Triglycerides 54 mg/dL (< 150)
--- NOTE | 2025-05-25 12:15 | DVHPN2 ---
Progress Note - Dictate Date Seen: May 25, 2025 Medical Necessity Reason Pt with a Central, PICC or Fol: Yes The following are medically ne: Smith Catheter Reason for smith catheter: Strict I&O vital signs Vital Sign Date Time Temp Pulse Resp B/P (MAP) Pulse Ox O2 Delivery O2 Flow Rate FiO2 05/25/25 11:23 94 16 100 05/25/25 11:18 Room Air* 0 21 05/25/25 09:16 152/84 05/25/25 09:00 98.2 98.2 Total Intake and Output 05/24/25 05/24/25 05/25/25 15:00 23:00 07:00 Intake Total 10 ml 0 ml 0 ml Output Total 150 ml 500 ml Balance 10 ml -150 ml -500 ml medications Current Medications Medications Dose Ordered Sig/Wai Route Start Time Stop Time Status Last Admin Dose Admin Nitroglycerin 0.4 mg Q5MINP PRN SL 05/09/25 23:15 Vancomycin HCl 0 ml @ 0 mls/hr UD IV 05/09/25 23:15 Cancel Pantoprazole Sodium 40 mg DAILY IV 05/10/25 10:00 05/25/25 09:16 40 MG Hydralazine HCl 10 mg Q6HP PRN IV 05/12/25 06:30 05/23/25 21:05 10 MG Ceftriaxone Sodium 50 ml @ 100 mls/hr DAILY@09 IV 05/13/25 09:00 UNV Amino Acids 0 ml @ 0 mls/hr PER PHARMACY IV 05/13/25 16:45 Amino Acids/ Electrolytes/ Dextrose 1,000 ml @ 41 mls/hr DAILY@2200 IV 05/13/25 22:00 05/24/25 21:50 41 MLS/HR Diagnostic Test (Pha) 1 strip Q6HR 05/13/25 00:00 05/25/25 11:51 1 STRIP Insulin Human Regular FOLLOW SLIDING SCALE Q6HR SC 05/13/25 00:00 05/25/25 00:16 2 UNITS Dextrose 50 ml UD IV 05/13/25 00:00 Mupirocin 1 applic BID TOP 05/14/25 22:00 05/25/25 09:16 1 APPLIC Linezolid 300 ml @ 150 mls/hr Q12HR IV 05/15/25 22:00 UNV Albuterol 2.5 mg Q6HR NEB 05/18/25 14:00 05/25/25 11:18 2.5 MG Vancomycin HCl 0 ml @ 0 mls/hr UD IV 05/23/25 15:15 Enteral Nutritional Formula 240 ml Q6HR PO 05/25/25 06:00 Furosemide 40 mg DAILY IV 05/26/25 10:00 UNV Lactated Ringer's 1,000 ml @ 75 mls/hr [id number] IV 05/25/25 12:15 UNV Calcium Acetate 667 mg TIDWMEALS GT 05/25/25 18:00 UNV objective General Appearance: alert, no distress HEENT: EOMI, PERRLA, normal external inspect of ears, no icterus, no nasal drainage Neck: no carotid bruit, no jugular venous distention (JVD), no lymphadenopathy Chest: normal thorax Respiratory: clear to auscultation, normal air movement Cardiovascular: regular rate and rhythm, no diastolic murmur, no jugular venous distention (JVD), no rub, no systolic murmur Abdominal: soft, no hepatomegaly, no mass, no splenomegaly, no tenderness Genitourinary: grossly normal external Musculoskeletal: no joint tenderness, no swelling Extremities: normal pulses, no calf tenderness, no clubbing, no cyanosis, no edema Skin: no bruising, no jaundice, no rash Neurological: alert, No focal deficit laboratory and microbiology Laboratory Tests 05/25/25 05:36 Test 05/25/25 05:36 Range/Units Serum Glucose 118 H 74-106 mg/dL Problem List 1. Sepsis IV Abx 2. Acute on chronic anemia Medications, Monitoring 3. LISANDRO with CKD 3b Nephrology consult 4. Bed bound Monitoring 5. CVA with residual deficits Monitoring 6. NSTEMI II, demand ischemia Cardiology consult, monitor EKG 7. MRSA w/ Nares Medications, Monitoring 8. Hyperkalemia r/t LISANDRO Hyperkalemia Tx 9. Hypoglycemia Medications, Monitoring Assessment/Plan Subjective Patient remain lethargic. Objective Patient has persistent metabolic encephalopathy related to LISANDRO superimposed on CKD. Patient is s/p PEG tube placement due to failed swallow eval. Patient was started on IV hydration with lactated ringers today by nephrology. Solumedrol is discontinued along with Mucomyst and chest physiotherapy. Patient is no longer coughing and he does not sound congested. Plan Started tube feeding if cleared by GI. Dietary consult for tube feeding recommendations. Continue gentle IV hydration. Dietary Evaluation Review Comments: 1. TPN per pharmacy to meet Pt's daily needs at 48g Protein 1000kcal, when Tube feeding is not feasible. 2. Nepro@25 ml/hr, providing 49g proteinm 1062 [id number] free water, once NG feeding becomes feasible, Start at 10ml/hr and increase 10ml Q6hr till reach the goal rate. 3. Renal standard CCHO-60 once pt can tolerate PO feedings Expected Outcomes/Goals: gradual wt gain Plan discussed with: Patient, Other CC Plasma Assessment Blood Product Administration S: [id number] RAÚL STEEL NP May 25, 2025 12:15
--- NOTE | 2025-05-25 12:19 | DVHPN2 ---
Progress Note Date Seen: May 25, 2025 Medical Necessity Reason Pt with a Central, PICC or Fol: Yes The following are medically ne: Smith Catheter Reason for smith catheter: Strict I&O Subjective Patient reports: Feels worse Review of Systems: NEURO:Abnormal Objective vital signs Vital Sign Date Time Temp Pulse Resp B/P (MAP) Pulse Ox O2 Delivery O2 Flow Rate FiO2 05/25/25 11:23 94 16 100 05/25/25 11:18 Room Air* 0 21 05/25/25 09:16 152/84 05/25/25 09:00 98.2 98.2 Total Intake and Output 05/24/25 05/24/25 05/25/25 15:00 23:00 07:00 Intake Total 10 ml 0 ml 0 ml Output Total 150 ml 500 ml Balance 10 ml -150 ml -500 ml medications Current Medications Medications Dose Ordered Sig/Wai Route Start Time Stop Time Status Last Admin Dose Admin Nitroglycerin 0.4 mg Q5MINP PRN SL 05/09/25 23:15 Vancomycin HCl 0 ml @ 0 mls/hr UD IV 05/09/25 23:15 Cancel Pantoprazole Sodium 40 mg DAILY IV 05/10/25 10:00 05/25/25 09:16 40 MG Hydralazine HCl 10 mg Q6HP PRN IV 05/12/25 06:30 05/23/25 21:05 10 MG Ceftriaxone Sodium 50 ml @ 100 mls/hr DAILY@09 IV 05/13/25 09:00 UNV Amino Acids 0 ml @ 0 mls/hr PER PHARMACY IV 05/13/25 16:45 Amino Acids/ Electrolytes/ Dextrose 1,000 ml @ 41 mls/hr DAILY@2200 IV 05/13/25 22:00 05/24/25 21:50 41 MLS/HR Diagnostic Test (Pha) 1 strip Q6HR 05/13/25 00:00 05/25/25 11:51 1 STRIP Insulin Human Regular FOLLOW SLIDING SCALE Q6HR SC 05/13/25 00:00 05/25/25 00:16 2 UNITS Dextrose 50 ml UD IV 05/13/25 00:00 Mupirocin 1 applic BID TOP 05/14/25 22:00 05/25/25 09:16 1 APPLIC Linezolid 300 ml @ 150 mls/hr Q12HR IV 05/15/25 22:00 UNV Albuterol 2.5 mg Q6HR NEB 05/18/25 14:00 05/25/25 11:18 2.5 MG Vancomycin HCl 0 ml @ 0 mls/hr UD IV 05/23/25 15:15 Enteral Nutritional Formula 240 ml Q6HR PO 05/25/25 06:00 Furosemide 40 mg DAILY IV 05/26/25 10:00 UNV Lactated Ringer's 1,000 ml @ 75 mls/hr [id number] IV 05/25/25 12:15 UNV Calcium Acetate 667 mg TIDWMEALS GT 05/25/25 18:00 UNV Examination: GENERAL:Abnormal, LUNGS:Abnormal, NEURO:Abnormal laboratory and microbiology Laboratory Tests 05/25/25 05:36 Test 05/25/25 05:36 Range/Units Serum Glucose 118 H 74-106 mg/dL Microbiology Date/Time Source Procedure Growth Status 05/11/25 23:45 Voided Urine Urine Culture - Final Yeast, not Diana albicans Complete 05/10/25 02:49 Nose MRSA Screen - Final Methicillin Resistant S.aureus Complete 05/09/25 19:30 Blood Blood Culture - Final NO GROWTH AFTER 5 DAYS OF INCUBATION. Complete Problem List/Assessment/Plan Problem List/Assessment/Plan Acute kidney injury likely acute tubular necrosis in the setting of severe sepsis Severe sepsis/pneumonia Metabolic acidosis Encephalopathy Chronic Smith for greater than one year Failure to thrive anemia Clinically appears hypovolemic Will rec IVF for next 24hrs phos binder tube feeds obtain anemia panel start vitamin D once tube feeds start azotemia likely due to steroids and high protein IV PPN + catabolism neuro w/u per pcp given change from baseline- currently nonverbal and confused Plan discussed with: Other (mother) My Orders My Orders Orders - CHRISTINE MOORE MD Procedure Category Date Status Time Furosemide Injection PHA 05/26/25 Logged (Lasix Injection) 10:00 Lactated Ringer's PHA 05/25/25 Logged 12:15 Calcium Acetate PHA 05/25/25 Transmitted Capsule (Phoslo 18:00 Ferritin LAB 05/25/25 Verified 12:14 Iron Panel LAB 05/25/25 Verified 12:14 Dietary Evaluation Review Comments: 1. TPN per pharmacy to meet Pt's daily needs at 48g Protein 1000kcal, when Tube feeding is not feasible. 2. Nepro@25 ml/hr, providing 49g proteinm 1062 [id number] free water, once NG feeding becomes feasible, Start at 10ml/hr and increase 10ml Q6hr till reach the goal rate. 3. Renal standard CCHO-60 once pt can tolerate PO feedings Expected Outcomes/Goals: gradual wt gain Total Time (mins): 55 CC Plasma Assessment Blood Product Administration S: [id number] CHRISTINE MOORE MD May 25, 2025 12:19
[2025-05-25 12:28] LABS: Iron 113.0 ug/dL (65-175)
[2025-05-25 12:32] LABS: Total Iron Binding Capacity 151.0 ug/dL (250-425)
--- NOTE | 2025-05-25 14:14 | DVHPN2 ---
Progress Note - Dictate Date Seen: May 25, 2025 Medical Necessity Reason Pt with a Central, PICC or Fol: Yes The following are medically ne: Smith Catheter Reason for smith catheter: Strict I&O Subjective 44-year-old gentleman who was at baseline bed-bound with old history of CVA who presented with altered mental status and shortness of breath. Multiorgan failure secondary to sepsis is considered. Minimal increase in troponin is considered to reflect demand ischemia in a patient with questionable history of diastolic heart failure; EF 64% Postop day 1. S/P PEG tube placement Peg tube site appears to be normal Patient is just lying in bed comfortably in no acute distress vital signs Vital Sign Date Time Temp Pulse Resp B/P (MAP) Pulse Ox O2 Delivery O2 Flow Rate FiO2 05/25/25 13:00 98.2 92 17 151/83 (105) 93 98.2 05/25/25 11:18 Room Air* 0 21 Total Intake and Output 05/24/25 05/24/25 05/25/25 15:00 23:00 07:00 Intake Total 10 ml 0 ml 0 ml Output Total 150 ml 500 ml Balance 10 ml -150 ml -500 ml medications Current Medications Medications Dose Ordered Sig/Wai Route Start Time Stop Time Status Last Admin Dose Admin Nitroglycerin 0.4 mg Q5MINP PRN SL 05/09/25 23:15 Vancomycin HCl 0 ml @ 0 mls/hr UD IV 05/09/25 23:15 Cancel Pantoprazole Sodium 40 mg DAILY IV 05/10/25 10:00 05/25/25 09:16 40 MG Hydralazine HCl 10 mg Q6HP PRN IV 05/12/25 06:30 05/23/25 21:05 10 MG Ceftriaxone Sodium 50 ml @ 100 mls/hr DAILY@09 IV 05/13/25 09:00 UNV Amino Acids 0 ml @ 0 mls/hr PER PHARMACY IV 05/13/25 16:45 Amino Acids/ Electrolytes/ Dextrose 1,000 ml @ 41 mls/hr DAILY@2200 IV 05/13/25 22:00 05/24/25 21:50 41 MLS/HR Diagnostic Test (Pha) 1 strip Q6HR 05/13/25 00:00 05/25/25 11:51 1 STRIP Insulin Human Regular FOLLOW SLIDING SCALE Q6HR SC 05/13/25 00:00 05/25/25 12:40 2 UNITS Dextrose 50 ml UD IV 05/13/25 00:00 Mupirocin 1 applic BID TOP 05/14/25 22:00 05/25/25 09:16 1 APPLIC Linezolid 300 ml @ 150 mls/hr Q12HR IV 05/15/25 22:00 UNV Albuterol 2.5 mg Q6HR NEB 05/18/25 14:00 05/25/25 11:18 2.5 MG Vancomycin HCl 0 ml @ 0 mls/hr UD IV 05/23/25 15:15 Enteral Nutritional Formula 240 ml Q6HR PO 05/25/25 06:00 Furosemide 40 mg DAILY IV 05/26/25 10:00 UNV Lactated Ringer's 1,000 ml @ 75 mls/hr [id number] IV 05/25/25 12:15 UNV Calcium Acetate 667 mg TIDWMEALS GT 05/25/25 18:00 UNV objective General: NAD, patient is resting Chest: lung perez clear to auscultation Heart: RRR, no murmur Abdomen: non-distended, no tenderness to palpation, +BS G-tube site appears clean and dressing is dry laboratory and microbiology Laboratory Tests 05/25/25 05:36 Test 05/25/25 05:36 Range/Units Serum Glucose 118 H 74-106 mg/dL Problems(with codes): (1) Acute prerenal azotemia (2) UTI (urinary tract infection) (3) Metabolic encephalopathy Prognosis Plan Patient can be started on enteral tube feedings as ordered Continue to monitor labs Discharge planning can be initiated pending medical stabilization I will be out of town for the rest of the week, if any further GI intervention is required please contact GI doctor on-call Dietary Evaluation Review Comments: 1. TPN per pharmacy to meet Pt's daily needs at 48g Protein 1000kcal, when Tube feeding is not feasible. 2. Nepro@25 ml/hr, providing 49g proteinm 1062 [id number] free water, once NG feeding becomes feasible, Start at 10ml/hr and increase 10ml Q6hr till reach the goal rate. 3. Renal standard CCHO-60 once pt can tolerate PO feedings Expected Outcomes/Goals: gradual wt gain Plan discussed with: Other (None) CC Plasma Assessment Blood Product Administration S: [id number] CHANTE PALMER MD May 25, 2025 14:14
--- NOTE | 2025-05-25 17:00 | DVHPN2 ---
Progress Note - Dictate Date Seen: May 25, 2025 Medical Necessity Reason Pt with a Central, PICC or Fol: Yes The following are medically ne: Smith Catheter Reason for smith catheter: Strict I&O vital signs Vital Sign Date Time Temp Pulse Resp B/P (MAP) Pulse Ox O2 Delivery O2 Flow Rate FiO2 05/25/25 13:00 98.2 92 17 151/83 (105) 93 98.2 05/25/25 11:18 Room Air* 0 21 Total Intake and Output 05/24/25 05/24/25 05/25/25 15:00 23:00 07:00 Intake Total 10 ml 0 ml 0 ml Output Total 150 ml 500 ml Balance 10 ml -150 ml -500 ml medications Current Medications Medications Dose Ordered Sig/Wai Route Start Time Stop Time Status Last Admin Dose Admin Nitroglycerin 0.4 mg Q5MINP PRN SL 05/09/25 23:15 Vancomycin HCl 0 ml @ 0 mls/hr UD IV 05/09/25 23:15 Cancel Pantoprazole Sodium 40 mg DAILY IV 05/10/25 10:00 05/25/25 09:16 40 MG Hydralazine HCl 10 mg Q6HP PRN IV 05/12/25 06:30 05/23/25 21:05 10 MG Ceftriaxone Sodium 50 ml @ 100 mls/hr DAILY@09 IV 05/13/25 09:00 UNV Amino Acids 0 ml @ 0 mls/hr PER PHARMACY IV 05/13/25 16:45 Amino Acids/ Electrolytes/ Dextrose 1,000 ml @ 41 mls/hr DAILY@2200 IV 05/13/25 22:00 05/24/25 21:50 41 MLS/HR Diagnostic Test (Pha) 1 strip Q6HR 05/13/25 00:00 05/25/25 11:51 1 STRIP Insulin Human Regular FOLLOW SLIDING SCALE Q6HR SC 05/13/25 00:00 05/25/25 12:40 2 UNITS Dextrose 50 ml UD IV 05/13/25 00:00 Mupirocin 1 applic BID TOP 05/14/25 22:00 05/25/25 09:16 1 APPLIC Linezolid 300 ml @ 150 mls/hr Q12HR IV 05/15/25 22:00 UNV Albuterol 2.5 mg Q6HR NEB 05/18/25 14:00 05/25/25 11:18 2.5 MG Vancomycin HCl 0 ml @ 0 mls/hr UD IV 05/23/25 15:15 Enteral Nutritional Formula 240 ml Q6HR PO 05/25/25 06:00 Furosemide 40 mg DAILY IV 05/26/25 10:00 Lactated Ringer's 1,000 ml @ 75 mls/hr [id number] IV 05/25/25 12:15 Calcium Acetate 667 mg TIDWMEALS GT 05/25/25 18:00 Epoetin Venu-epbx 6,000 unit TUTHSA [place] 05/25/25 16:15 UNV laboratory and microbiology Laboratory Tests 05/25/25 05:36 Test 05/25/25 05:36 Range/Units Serum Glucose 118 H 74-106 mg/dL Assessment/Plan Patient is a 44-year-old gentleman who presented with altered mental status/shortness of breath. He is at baseline poor historian. Information was obtained by reviewing the chart and communicating with staff. It seems that since arrival the patient was found to have severe sepsis and multiorgan dysfunction. He has been on supplemental oxygen. 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 Reportedly on arrival to Emergency room blood pressure was low on later improved. Cardiology is involved for cardiac aspects of care. There is no report of chest pain. Lying flat in bed. No JVD. Mucosa is pink and wet. Scattered rhonchi in the lungs is heard. Cardiac: Regular, tachycardic, no thrill. Systolic murmur 2/6 in apex is heard. Abdomen is soft. There is no gross mass. There is no hepatomegaly. Extremities do not reveal edema. Dorsalis pedis is 2+ bilateral Past medical history reportedly includes old history of CVA with poor functional capacity, CKD, hypertension, hyperlipidemia, diabetes mellitus, repeated history of sepsis, history of urethral stricture and recurrent UTI, history of phimosis anemia and bed-bound at baseline. There was question if the patient has baseline history of diastolic heart failure Echocardiogram of December 2024 revealed ejection fraction of 64%, trace MR/TR and right ventricular systolic pressure of 34 mm Hg. WBC: 26.7 - 20.8 - 29.9 - 29.4 - 28.9 - 21.8 - 18.4 - 16.0 - 13.0 - 7.6 - 6.6 - 6.4 - 7.6 Hemoglobin: 5.9 - 6.8 - 7.8 - 9.0 - 9.5 - 8.5 - 8.4 - 8.7 - 8.9 - 7.8 - 7.2 - 7.4 - 7.6 BNP: 528.66 - 280.34 Creatinine: 5.69 - 5.7 - 4.72 - 4.86 - 4.67 - 4.73 - 4.70 - 4.77 - 4.84 - 4.51 - 4.46 - 4.03 - 4.03 - 3.88 - 3.69 - 3.36 - 3.29 - 3.34 - 3.22 - 3.25 - 3.32 - 3.28 - 3.28 - 3.36 Potassium: 8.0 - 7.6 - 5.8 - 5.8 - 5.0 - 5.0 - 5.0 - 4.9 - 4.4 - 3.9 - 3.2 - 3.2 - 3.4 - 4.0 - 3.7 - 3.8 - 3.5 - 3.5 - 3.5 - 3.5 - 3.3 - 3.7 - 3.6 Sodium: 147 - 146 - 153 - 154 - 157 - 155 - 154 - 152 - 150 - 150 - 147 - 147 - 143 - 140 - 134 - 135 - 134 - 135 - 134 - 134 - 134 - 136 - 135 AST/ALT: 96/66 - 468/478 - 257/349 - 15/118 - 11/67 - 10/ - 13/ - 10/18 - 09/05 - 08/04 - <07/04 - 11/11 - Troponin (high sensitive): 81 - 89 - 92 Chest x-ray reported: IMPRESSION: Findings suggest a mild degree of pulmonary edema which is decreased compared to the prior study on 01/11/2025. Pneumonia is considered less likely Repeat chest xry revealed: IMPRESSION: 1. No interval change. Repeat chest xry revealed: 1. Increase in patchy and confluent bilateral airspace opacities which could reflect worsening multifocal pneumonia and/or pulmonary edema. 2. Probable bilateral pleural effusions, greater on the left. Repeat chest xry revealed: IMPRESSION: Improving multifocal pneumonia. Repeat chest xry revealed: IMPRESSION: Cardiomegaly with pulmonary vascular congestion and bilateral patchy airspace opacities, significantly worsened. Moderate left and small right pleural effusions. Repeat chest xry revealed: IMPRESSION: 1. Continuing signs of pulmonary edema. Can not left lower lobe retrocardiac consolidation/ pneumonia with effusion CT of Head revealed: IMPRESSION: No intracranial hemorrhage or mass effect. Advanced chronic microvascular ischemic changes with old infarcts as described. Large right mastoid effusion. Renal ultrasound reported: IMPRESSION: Bilateral medical renal disease. EKG revealed sinus tachycardia Tele shows sinus tachycardia Echocardiogram revealed: Left ventricle: Mild diffuse hypokinesis of left ventricle was seen. LVEF was around 50%. Right ventricle was normal size with mildly reduced systolic function. Both atria were normal size. Aortic valve was trileaflet. There was no aortic insufficiency/stenosis. There was mild mitral/tricuspid regurgitation. There was no pulmonary valve insufficiency. Right ventricular systolic pressure was assessed at 35 mm Hg. There was trace pericardial effusion. Patient is a 44-year-old gentleman who was at baseline bed-bound with old history of CVA who presented with altered mental status and shortness of breath. Presentation is in favor acute respiratory failure secondary to sepsis. Multiorgan failure secondary to sepsis is considered. Minimal increase in troponin is considered to reflect demand ischemia in a patient with questionable history of diastolic heart failure. In December 2024 ejection fraction in echocardiogram was 64% with no specific increase in right ventricular systolic pressure. Acute respiratory failure Sepsis Encephalopathy, metabolic versus toxic LISANDRO on CKD ATN Demand ischemia Hypernatremia Hypokalemia Anemia s/p PEG placement Cardiac suggestion for management: Manage in tele Fluid resuscitation as per Nephrology Follow-up electrolytes and kidney function tests and correct abnormalities Aspirin: 81 mg daily with old history of CVA is suggested DVT prophylaxis as per primary team Has failed swallowing evaluation s/p PEG placement Cardiac ramirez, patient is moderate risk patient for low to moderate risk EGD/PEG placement. Cardiac ramirez, you can proceed with the EGD/PEG placement under appropriate intra and post operative hemodynamic monitoring. Avoid Hypotension. s/p PEG placement Management of sepsis/infection as per primary team Pulmonary follow-up Nephrology follow up Recognizing co-morbidities, prognosis is gaurded. Further evaluation and management depends on the above and clinical course A total of 55 minutes was spent reviewing the patient record, examining the patient, making a diagnostic and therapeutic plan, discussing this plan with medical personnel, following up on diagnostic studies and following the patient for clinical stability excluding any and all procedures. At least 50% of this time was spent in direct, [id number] contact. Thank you for allowing me to participate in this patient's care. Further recommendations will depend on patient's clinical course. Please do not hesitate to contact me if you have any questions or concerns. This medical document was created using electronic medical record system with [employer] computerized dictation system. Although this document has been carefully reviewed, there may still be some phonetic and typographical errors. These areas are purely typographical due to the imperfection of the software programs, and do not reflect any compromise in the patient's medical care. Dietary Evaluation Review Comments: 1. TPN per pharmacy to meet Pt's daily needs at 48g Protein 1000kcal, when Tube feeding is not feasible. 2. Nepro@25 ml/hr, providing 49g proteinm 1062 [id number] free water, once NG feeding becomes feasible, Start at 10ml/hr and increase 10ml Q6hr till reach the goal rate. 3. Renal standard CCHO-60 once pt can tolerate PO feedings Expected Outcomes/Goals: gradual wt gain Plan discussed with: Other (nurse) CC Plasma Assessment Blood Product Administration S: [id number] FAN HAMEED MD May 25, 2025 17:00
[2025-05-25 17:33] LABS: Chloride 106 mmol/L (98-107); Potassium 3.6 mmol/L (3.5-5.1)
[2025-05-25 17:34] LABS: Anion Gap 13 (5-15)
[2025-05-25 17:36] LABS: Calcium 8.3 mg/dL (8.7-10.4); Carbon Dioxide 17 mmol/L (20-31); Sodium 136 mmol/L (136-145)
[2025-05-25 17:39] LABS: BUN/Creatinine Ratio 43.2 (10.0-20.0)
[2025-05-25 17:41] LABS: Glucose 115 mg/dL (74-106)
[2025-05-25 17:44] LABS: Blood Urea Nitrogen 149 mg/dL (9-23)
[2025-05-25] MEDS: CALCIUM ACETATE 667 MG CAP GT SCH (18:00)
[2025-05-25] MEDS: LACTATED RINGER'S 1,000 ML IV SCH (18:26)
[2025-05-25] MEDS: EPOETIN ALFA-EPBX 10,000 UNIT/1ML VIAL SC SCH (18:27)
--- NOTE | 2025-05-25 23:53 | DVHPN2 ---
Progress Note - Dictate Date Seen: May 25, 2025 Medical Necessity Reason Pt with a Central, PICC or Fol: Yes The following are medically ne: Smith Catheter Reason for smith catheter: Strict I&O Subjective Patient seen and examined at bedside. Breathing comfortably on room air. Overnight events reviewed. vital signs Vital Sign Date Time Temp Pulse Resp B/P (MAP) Pulse Ox O2 Delivery O2 Flow Rate FiO2 05/25/25 21:00 97.0 89 18 151/96 (114) 96 97.0 05/25/25 19:10 Room Air 0.0 05/25/25 19:10 21 Total Intake and Output 05/24/25 05/24/25 05/25/25 15:00 23:00 07:00 Intake Total 10 ml 0 ml 0 ml Output Total 150 ml 500 ml Balance 10 ml -150 ml -500 ml medications Current Medications Medications Dose Ordered Sig/Wai Route Start Time Stop Time Status Last Admin Dose Admin Nitroglycerin 0.4 mg Q5MINP PRN SL 05/09/25 23:15 Vancomycin HCl 0 ml @ 0 mls/hr UD IV 05/09/25 23:15 Cancel Pantoprazole Sodium 40 mg DAILY IV 05/10/25 10:00 05/25/25 09:16 40 MG Hydralazine HCl 10 mg Q6HP PRN IV 05/12/25 06:30 05/23/25 21:05 10 MG Ceftriaxone Sodium 50 ml @ 100 mls/hr DAILY@09 IV 05/13/25 09:00 UNV Amino Acids 0 ml @ 0 mls/hr PER PHARMACY IV 05/13/25 16:45 Amino Acids/ Electrolytes/ Dextrose 1,000 ml @ 41 mls/hr DAILY@2200 IV 05/13/25 22:00 05/25/25 21:59 41 MLS/HR Diagnostic Test (Pha) 1 strip Q6HR 05/13/25 00:00 05/25/25 18:18 1 STRIP Insulin Human Regular FOLLOW SLIDING SCALE Q6HR SC 05/13/25 00:00 05/25/25 12:40 2 UNITS Dextrose 50 ml UD IV 05/13/25 00:00 Mupirocin 1 applic BID TOP 05/14/25 22:00 05/25/25 22:09 1 APPLIC Linezolid 300 ml @ 150 mls/hr Q12HR IV 05/15/25 22:00 UNV Albuterol 2.5 mg Q6HR NEB 05/18/25 14:00 05/25/25 19:07 2.5 MG Vancomycin HCl 0 ml @ 0 mls/hr UD IV 05/23/25 15:15 Enteral Nutritional Formula 240 ml Q6HR PO 05/25/25 06:00 Furosemide 40 mg DAILY IV 05/26/25 10:00 Lactated Ringer's 1,000 ml @ 75 mls/hr [id number] IV 05/25/25 12:15 05/25/25 18:26 75 MLS/HR Calcium Acetate 667 mg TIDWMEALS GT 05/25/25 18:00 Epoetin Venu-epbx 6,000 unit TUTHSA [place] 05/25/25 16:15 05/25/25 18:27 6,000 UNIT objective Gen.: Patient lying in bed in no apparent distress. Breathing on room air. Head: Normocephalic, atraumatic. Eyes: EOMI/PERRLA. Ears: Normal hearing. Normal anatomy. Neck/trachea: Trachea midline, supple. Nose: Normal external anatomy. Mouth: Moist mucous membranes. Chest: Decreased air entry bilaterally. No wheezing or rhonchi. Cardiovascular: Positive S1, positive S2. Regular rate and rhythm. Abdomen: Positive bowel sounds in all 4 quadrants. Soft, non-tender, non- distended. : Deferred. Rectal: Deferred. Skin: Warm, dry. Intact. Extremities: 2+ radial pulses bilaterally. No lower extremity edema. Neuro: Awake, alert, oriented x3. No gross motor or sensory deficits. Cranial nerves II through XII intact. Gait not assessed. laboratory and microbiology Laboratory Tests 05/25/25 17:16 05/25/25 05:36 Test 05/25/25 17:16 Range/Units Serum Glucose 115 H 74-106 mg/dL Assessment/Plan Impression: Acute hypoxemic respiratory failure Altered mental status Pneumonia Sepsis Urinary tract infection Events: Remains on room air Supplemental oxygen PRN Status post PEG. Clinimix for nutritional support IV fluids with LR at 75 ml/hr. Continue bronchodilators/Mucomyst Accu-Cheks, ISS. Diurese with Lasix Monitor renal function Monitor electrolytes. Supplement as necessary. Monitor ins and outs. Maintain euvolemia. Protonix for GI ppx CXR on 05/23 demonstrates continuing signs of pulmonary edema. Cannot r/o left lower lobe retrocardiac consolidation/pneumonia with effusion. Labs and imaging reviewed Rest of plan as noted below. Plan: Supplemental oxygen as needed Titrate to maintain sats above 92% Incentive spirometry Bronchodilators Antibiotics F/u cultures Accu-Cheks, ISS. S/p PEG Clinimix for nutritional support Monitor renal function Diurese to euvolemia Monitor electrolytes Supplement as needed Follow up Nephrology recs Monitor blood count Transfuse blood products as needed DVT prophylaxis Prognosis: Guarded given patient's multiple co-morbidities. Rest of plan per hospitalist and other consultants. Thank you, ANITHA Vergara, for allowing me to participate in this patient's care. Further recommendations will depend on the patient's clinical course. Please do not hesitate to contact me if you have any questions or concerns. This medical document was created using an electronic medical record system with [employer] dictation system. Although these documentations are being carefully reviewed, there may still be some phonetic and typographical changes. The errors are purely typographical, due to imperfection on the software program, and do not reflect any compromise in the patient's medical care. Dietary Evaluation Review Comments: 1. TPN per pharmacy to meet Pt's daily needs at 48g Protein 1000kcal, when Tube feeding is not feasible. 2. Nepro@25 ml/hr, providing 49g proteinm 1062 [id number] free water, once NG feeding becomes feasible, Start at 10ml/hr and increase 10ml Q6hr till reach the goal rate. 3. Renal standard CCHO-60 once pt can tolerate PO feedings Expected Outcomes/Goals: gradual wt gain Plan discussed with: Patient, Other (CARMEN Mancia) CC Plasma Assessment Blood Product Administration S: [id number] EDGARDO CULLEN MD May 25, 2025 23:53
[2025-05-26] VITALS (16 sets, daily range): BP systolic 135–166; BP diastolic 89–102; PULSE 75–86; RESP 16–18; TEMP 96.6–97.9; O2SAT 94–100
--- NOTE | 2025-05-26 06:45 | DVHPN2 ---
Progress Note - Dictate Date Seen: May 26, 2025 Medical Necessity Reason Pt with a Central, PICC or Fol: Yes The following are medically ne: Smith Catheter Reason for smith catheter: Strict I&O vital signs Vital Sign Date Time Temp Pulse Resp B/P (MAP) Pulse Ox O2 Delivery O2 Flow Rate FiO2 05/26/25 05:00 97.9 86 18 135/96 (109) 94 97.9 05/25/25 20:00 Room Air* 0 21 Total Intake and Output 05/25/25 05/25/25 05/26/25 15:00 23:00 07:00 Intake Total 0 ml Output Total 800 ml Balance -800 ml medications Current Medications Medications Dose Ordered Sig/Wai Route Start Time Stop Time Status Last Admin Dose Admin Nitroglycerin 0.4 mg Q5MINP PRN SL 05/09/25 23:15 Vancomycin HCl 0 ml @ 0 mls/hr UD IV 05/09/25 23:15 Cancel Pantoprazole Sodium 40 mg DAILY IV 05/10/25 10:00 05/25/25 09:16 40 MG Hydralazine HCl 10 mg Q6HP PRN IV 05/12/25 06:30 05/23/25 21:05 10 MG Ceftriaxone Sodium 50 ml @ 100 mls/hr DAILY@09 IV 05/13/25 09:00 UNV Amino Acids 0 ml @ 0 mls/hr PER PHARMACY IV 05/13/25 16:45 Amino Acids/ Electrolytes/ Dextrose 1,000 ml @ 41 mls/hr DAILY@2200 IV 05/13/25 22:00 05/25/25 21:59 41 MLS/HR Diagnostic Test (Pha) 1 strip Q6HR 05/13/25 00:00 05/26/25 06:14 1 STRIP Insulin Human Regular FOLLOW SLIDING SCALE Q6HR SC 05/13/25 00:00 05/26/25 00:19 4 UNITS Dextrose 50 ml UD IV 05/13/25 00:00 Linezolid 300 ml @ 150 mls/hr Q12HR IV 05/15/25 22:00 UNV Albuterol 2.5 mg Q6HR NEB 05/18/25 14:00 05/26/25 06:41 2.5 MG Vancomycin HCl 0 ml @ 0 mls/hr UD IV 05/23/25 15:15 Enteral Nutritional Formula 240 ml Q6HR PO 7/1/25 06:00 Furosemide 40 mg DAILY IV 05/26/25 10:00 Lactated Ringer's 1,000 ml @ 75 mls/hr [id number] IV 05/25/25 12:15 05/25/25 18:26 75 MLS/HR Calcium Acetate 667 mg TIDWMEALS GT 05/25/25 18:00 Epoetin Venu-epbx 6,000 unit TUTHSA [place] 05/25/25 16:15 05/25/25 18:27 6,000 UNIT laboratory and microbiology Test 05/26/25 06:14 Range/Units Serum Glucose Pending Assessment/Plan Patient is a 44-year-old gentleman who presented with altered mental status/shortness of breath. He is at baseline poor historian. Information was obtained by reviewing the chart and communicating with staff. It seems that since arrival the patient was found to have severe sepsis and multiorgan dysfunction. He has been on supplemental oxygen. 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 Reportedly on arrival to Emergency room blood pressure was low on later improved. Cardiology is involved for cardiac aspects of care. There is no report of chest pain. Lying flat in bed. No JVD. Mucosa is pink and wet. Scattered rhonchi in the lungs is heard. Cardiac: Regular, tachycardic, no thrill. Systolic murmur 2/6 in apex is heard. Abdomen is soft. There is no gross mass. There is no hepatomegaly. Extremities do not reveal edema. Dorsalis pedis is 2+ bilateral Past medical history reportedly includes old history of CVA with poor functional capacity, CKD, hypertension, hyperlipidemia, diabetes mellitus, repeated history of sepsis, history of urethral stricture and recurrent UTI, history of phimosis anemia and bed-bound at baseline. There was question if the patient has baseline history of diastolic heart failure Echocardiogram of December 2024 revealed ejection fraction of 64%, trace MR/TR and right ventricular systolic pressure of 34 mm Hg. WBC: 26.7 - 20.8 - 29.9 - 29.4 - 28.9 - 21.8 - 18.4 - 16.0 - 13.0 - 7.6 - 6.6 - 6.4 - 7.6 9.5 Hemoglobin: 5.9 - 6.8 - 7.8 - 9.0 - 9.5 - 8.5 - 8.4 - 8.7 - 8.9 - 7.8 - 7.2 - 7.4 - 7.6 - 7.5 BNP: 528.66 - 280.34 Creatinine: 5.69 - 5.7 - 4.72 - 4.86 - 4.67 - 4.73 - 4.70 - 4.77 - 4.84 - 4.51 - 4.46 - 4.03 - 4.03 - 3.88 - 3.69 - 3.36 - 3.29 - 3.34 - 3.22 - 3.25 - 3.32 - 3 .28 - 3.28 - 3.36 - 3.45 today's pending Potassium: 8.0 - 7.6 - 5.8 - 5.8 - 5.0 - 5.0 - 5.0 - 4.9 - 4.4 - 3.9 - 3.2 - 3.2 - 3.4 - 4.0 - 3.7 - 3.8 - 3.5 - 3.5 - 3.5 - 3.5 - 3.3 - 3.7 - 3.6 - 3.6 today's pending Sodium: 147 - 146 - 153 - 154 - 157 - 155 - 154 - 152 - 150 - 150 - 147 - 147 - 143 - 140 - 134 - 135 - 134 - 135 - 134 - 134 - 134 - 136 - 135 - 136 today's pending AST/ALT: 96/66 - 468/478 - 257/349 - 15/118 - 11/67 - 10/42 - 13/30 - / - 09/05 - 08/04 - <8/ - / - today's pending Troponin (high sensitive): 81 - 89 - 92 Chest x-ray reported: IMPRESSION: Findings suggest a mild degree of pulmonary edema which is decreased compared to the prior study on 01/11/2025. Pneumonia is considered less likely Repeat chest xry revealed: IMPRESSION: 1. No interval change. Repeat chest xry revealed: 1. Increase in patchy and confluent bilateral airspace opacities which could reflect worsening multifocal pneumonia and/or pulmonary edema. 2. Probable bilateral pleural effusions, greater on the left. Repeat chest xry revealed: IMPRESSION: Improving multifocal pneumonia. Repeat chest xry revealed: IMPRESSION: Cardiomegaly with pulmonary vascular congestion and bilateral patchy airspace opacities, significantly worsened. Moderate left and small right pleural effusions. Repeat chest xry revealed: IMPRESSION: 1. Continuing signs of pulmonary edema. Can not left lower lobe retrocardiac consolidation/ pneumonia with effusion CT of Head revealed: IMPRESSION: No intracranial hemorrhage or mass effect. Advanced chronic microvascular ischemic changes with old infarcts as described. Large right mastoid effusion. Renal ultrasound reported: IMPRESSION: Bilateral medical renal disease. EKG revealed sinus tachycardia Tele shows sinus tachycardia Echocardiogram revealed: Left ventricle: Mild diffuse hypokinesis of left ventricle was seen. LVEF was around 50%. Right ventricle was normal size with mildly reduced systolic function. Both atria were normal size. Aortic valve was trileaflet. There was no aortic insufficiency/stenosis. There was mild mitral/tricuspid regurgitation. There was no pulmonary valve insufficiency. Right ventricular systolic pressure was assessed at 35 mm Hg. There was trace pericardial effusion. Patient is a 44-year-old gentleman who was at baseline bed-bound with old history of CVA who presented with altered mental status and shortness of breath. Presentation is in favor acute respiratory failure secondary to sepsis. Multiorgan failure secondary to sepsis is considered. Minimal increase in troponin is considered to reflect demand ischemia in a patient with questionable history of diastolic heart failure. In December 2024 ejection fraction in echoc ardiogram was 64% with no specific increase in right ventricular systolic pressure. Acute respiratory failure Sepsis Encephalopathy, metabolic versus toxic LISANDRO on CKD ATN Demand ischemia Hypernatremia Hypokalemia Anemia s/p PEG placement Cardiac suggestion for management: Manage in tele Fluid resuscitation as per Nephrology Follow-up electrolytes and kidney function tests and correct abnormalities Aspirin: 81 mg daily with old history of CVA is suggested DVT prophylaxis as per primary team Has failed swallowing evaluation s/p PEG placement Cardiac ramirez, patient is moderate risk patient for low to moderate risk EGD/PEG placement. Cardiac ramirez, you can proceed with the EGD/PEG placement under appropriate intra and post operative hemodynamic monitoring. Avoid Hypotension. s/p PEG placement Management of sepsis/infection as per primary team Pulmonary follow-up Nephrology follow up Recognizing co-morbidities, prognosis is gaurded. Further evaluation and management depends on the above and clinical course A total of 55 minutes was spent reviewing the patient record, examining the patient, making a diagnostic and therapeutic plan, discussing this plan with medical personnel, following up on diagnostic studies and following the patient for clinical stability excluding any and all procedures. At least 50% of this time was spent in direct, [id number] contact. Thank you for allowing me to participate in this patient's care. Further recommendations will depend on patient's clinical course. Please do not hesitate to contact me if you have any questions or concerns. This medical document was created using electronic medical record system with [employer] computerized dictation system. Although this document has been carefully reviewed, there may still be some phonetic and typographical errors. These areas are purely typographical due to the imperfection of the software programs, and do not reflect any compromise in the patient's medical care. Dietary Evaluation Review Comments: 1. TPN per pharmacy to meet Pt's daily needs at 48g Protein 1000kcal, when Tube feeding is not feasible. 2. Nepro@25 ml/hr, providing 49g proteinm 1062 [id number] free water, once NG feeding becomes feasible, Start at 10ml/hr and increase 10ml Q6hr till reach the goal rate. 3. Renal standard CCHO-60 once pt can tolerate PO feedings Expected Outcomes/Goals: gradual wt gain Plan discussed with: Other (nurse) CC Plasma Assessment Blood Product Administration S: [id number] FAN HAMEED MD May 26, 2025 06:45
[2025-05-26 06:51] LABS: Hematocrit 23.0 % (41.0-53.0); Hemoglobin 7.5 g/dL (13.5-17.5); Mean Corpuscular Hemoglobin 29.6 pg (28.0-32.0); Mean Corpuscular Volume 90.6 fL (80.0-100.0); Nucleated Red Blood Cells % 0.2 %
[2025-05-26 07:09] LABS: Alanine Aminotransferase 17 U/L (7-40); Anion Gap 14 (5-15); Chloride 106 mmol/L (98-107); Potassium 3.5 mmol/L (3.5-5.1); Sodium 136 mmol/L (136-145)
[2025-05-26 07:16] LABS: Albumin 2.3 g/dL (3.2-4.8); Alkaline Phosphatase 203 U/L (46-116); Bilirubin, Total 0.2 mg/dL (0.2-1.0); Calcium 7.9 mg/dL (8.7-10.4); Carbon Dioxide 16 mmol/L (20-31); Glucose 106 mg/dL (74-106); Magnesium 1.6 mg/dL (1.6-2.6); Total Protein 5.4 g/dL (5.7-8.2)
[2025-05-26 07:18] LABS: BUN/Creatinine Ratio 42.1 (10.0-20.0)
[2025-05-26 07:21] LABS: Blood Urea Nitrogen 142 mg/dL (9-23)
[2025-05-26] MEDS: FUROSEMIDE 40 MG/4 ML VIAL IV SCH (10:00)
--- NOTE | 2025-05-26 12:45 | DVHPN2 ---
Progress Note - Dictate Date Seen: May 26, 2025 Medical Necessity Reason Pt with a Central, PICC or Fol: Yes The following are medically ne: Smith Catheter Reason for smith catheter: Strict I&O vital signs Vital Sign Date Time Temp Pulse Resp B/P (MAP) Pulse Ox O2 Delivery O2 Flow Rate FiO2 05/26/25 12:18 82 18 96 05/26/25 11:57 97.8 146/89 (108) 97.8 05/26/25 10:00 Room Air 0.0 05/26/25 10:00 21 Total Intake and Output 05/25/25 05/25/25 05/26/25 15:00 23:00 07:00 Intake Total 0 ml Output Total 800 ml Balance -800 ml medications Current Medications Medications Dose Ordered Sig/Wai Route Start Time Stop Time Status Last Admin Dose Admin Nitroglycerin 0.4 mg Q5MINP PRN SL 05/09/25 23:15 Vancomycin HCl 0 ml @ 0 mls/hr UD IV 05/09/25 23:15 Cancel Pantoprazole Sodium 40 mg DAILY IV 05/10/25 10:00 05/26/25 10:53 40 MG Hydralazine HCl 10 mg Q6HP PRN IV 05/12/25 06:30 05/23/25 21:05 10 MG Ceftriaxone Sodium 50 ml @ 100 mls/hr DAILY@09 IV 05/13/25 09:00 UNV Amino Acids 0 ml @ 0 mls/hr PER PHARMACY IV 05/13/25 16:45 Amino Acids/ Electrolytes/ Dextrose 1,000 ml @ 41 mls/hr DAILY@2200 IV 05/13/25 22:00 05/25/25 21:59 41 MLS/HR Diagnostic Test (Pha) 1 strip Q6HR 05/13/25 00:00 05/26/25 12:23 1 STRIP Insulin Human Regular FOLLOW SLIDING SCALE Q6HR SC 05/13/25 00:00 05/26/25 00:19 4 UNITS Dextrose 50 ml UD IV 05/13/25 00:00 Linezolid 300 ml @ 150 mls/hr Q12HR IV 05/15/25 22:00 UNV Albuterol 2.5 mg Q6HR NEB 05/18/25 14:00 05/26/25 12:18 2.5 MG Vancomycin HCl 0 ml @ 0 mls/hr UD IV 05/23/25 15:15 Enteral Nutritional Formula 240 ml Q6HR PO 05/25/25 06:00 Furosemide 40 mg DAILY IV 05/26/25 10:00 05/26/25 10:00 40 MG Lactated Ringer's 1,000 ml @ 75 mls/hr [id number] IV 05/25/25 12:15 05/25/25 18:26 75 MLS/HR Calcium Acetate 667 mg TIDWMEALS GT 05/25/25 18:00 05/26/25 11:05 667 MG Epoetin Venu-epbx 6,000 unit TUTHSA SC 05/25/25 16:15 05/25/25 18:27 6,000 UNIT objective General Appearance: alert, no distress HEENT: EOMI, PERRLA, normal external inspect of ears, no icterus, no nasal drainage Neck: no carotid bruit, no jugular venous distention (JVD), no lymphadenopathy Chest: normal thorax Respiratory: clear to auscultation, normal air movement Cardiovascular: regular rate and rhythm, no diastolic murmur, no jugular venous distention (JVD), no rub, no systolic murmur Abdominal: soft, no hepatomegaly, no mass, no splenomegaly, no tenderness Genitourinary: grossly normal external Musculoskeletal: no joint tenderness, no swelling Extremities: normal pulses, no calf tenderness, no clubbing, no cyanosis, no edema Skin: no bruising, no jaundice, no rash Neurological: alert, No focal deficit laboratory and microbiology Laboratory Tests 05/26/25 06:14 Test 05/26/25 06:14 Range/Units Serum Glucose 106 74-106 mg/dL Problem List 1. Sepsis IV Abx 2. Acute on chronic anemia Medications, Monitoring 3. LISANDRO with CKD 3b Nephrology consult 4. Bed bound Monitoring 5. CVA with residual deficits Monitoring 6. NSTEMI II, demand ischemia Cardiology consult, monitor EKG 7. MRSA w/ Nares Medications, Monitoring 8. Hyperkalemia r/t LISANDRO Hyperkalemia Tx 9. Hypoglycemia Medications, Monitoring Assessment/Plan Subjective Patient is more awake and alert. Objective Patient's mentation is more at baseline. Patient can answer questions and follow commands. Patient was able to lift up his hand and stick out his tongue. Patient however could not swallow. Patient is status post PEG tube. Plan Resume hospice. Patient to do tube feeding on hospice. Start tube feedings today per dietary recommendations. DC planning 1 to 2 days. Dietary Evaluation Review Comments: 1. TPN per pharmacy to meet Pt's daily needs at 48g Protein 1000kcal, when Tube feeding is not feasible. 2. Nepro@25 ml/hr, providing 49g proteinm 1062 [id number] free water, once NG feeding becomes feasible, Start at 10ml/hr and increase 10ml Q6hr till reach the goal rate. 3. Renal standard CCHO-60 once pt can tolerate PO feedings Expected Outcomes/Goals: gradual wt gain Plan discussed with: Patient, Other CC Plasma Assessment Blood Product Administration S: [id number] RAÚL STEEL NP May 26, 2025 12:45
--- NOTE | 2025-05-26 14:05 | DVHPN2 ---
Progress Note Date Seen: May 26, 2025 Medical Necessity Reason Pt with a Central, PICC or Fol: Yes The following are medically ne: Smith Catheter Reason for smith catheter: Strict I&O Subjective Review of Systems: Deferred Objective vital signs Vital Sign Date Time Temp Pulse Resp B/P (MAP) Pulse Ox O2 Delivery O2 Flow Rate FiO2 05/26/25 12:18 82 18 96 05/26/25 11:57 97.8 146/89 (108) 97.8 05/26/25 10:00 Room Air 0.0 05/26/25 10:00 21 Total Intake and Output 05/25/25 05/25/25 05/26/25 15:00 23:00 07:00 Intake Total 0 ml Output Total 800 ml Balance -800 ml medications Current Medications Medications Dose Ordered Sig/Wai Route Start Time Stop Time Status Last Admin Dose Admin Nitroglycerin 0.4 mg Q5MINP PRN SL 05/09/25 23:15 Vancomycin HCl 0 ml @ 0 mls/hr UD IV 05/09/25 23:15 Cancel Pantoprazole Sodium 40 mg DAILY IV 05/10/25 10:00 05/26/25 10:53 40 MG Hydralazine HCl 10 mg Q6HP PRN IV 05/12/25 06:30 05/23/25 21:05 10 MG Ceftriaxone Sodium 50 ml @ 100 mls/hr DAILY@09 IV 05/13/25 09:00 UNV Amino Acids 0 ml @ 0 mls/hr PER PHARMACY IV 05/13/25 16:45 Amino Acids/ Electrolytes/ Dextrose 1,000 ml @ 41 mls/hr DAILY@2200 IV 05/13/25 22:00 05/25/25 21:59 41 MLS/HR Diagnostic Test (Pha) 1 strip Q6HR 05/13/25 00:00 05/26/25 12:23 1 STRIP Insulin Human Regular FOLLOW SLIDING SCALE Q6HR SC 05/13/25 00:00 05/26/25 00:19 4 UNITS Dextrose 50 ml UD IV 05/13/25 00:00 Linezolid 300 ml @ 150 mls/hr Q12HR IV 05/15/25 22:00 UNV Albuterol 2.5 mg Q6HR NEB 05/18/25 14:00 05/26/25 12:18 2.5 MG Vancomycin HCl 0 ml @ 0 mls/hr UD IV 05/23/25 15:15 Furosemide 40 mg DAILY IV 05/26/25 10:00 05/26/25 10:00 40 MG Lactated Ringer's 1,000 ml @ 75 mls/hr [id number] IV 05/25/25 12:15 05/25/25 18:26 75 MLS/HR Calcium Acetate 667 mg TIDWMEALS GT 05/25/25 18:00 05/26/25 11:05 667 MG Epoetin Venu-epbx 6,000 unit TUTHSA SC 05/25/25 16:15 05/25/25 18:27 6,000 UNIT Enteral Nutritional Formula 1,000 ml 25ML/HR GT 05/26/25 12:45 Examination: GENERAL:Abnormal, CVS:Normal, ABDOMEN:Abnormal laboratory and microbiology Laboratory Tests 05/26/25 06:14 Test 05/26/25 06:14 Range/Units Serum Glucose 106 74-106 mg/dL Microbiology Date/Time Source Procedure Growth Status 05/11/25 23:45 Voided Urine Urine Culture - Final Yeast, not Diana albicans Complete 05/10/25 02:49 Nose MRSA Screen - Final Methicillin Resistant S.aureus Complete 05/09/25 19:30 Blood Blood Culture - Final NO GROWTH AFTER 5 DAYS OF INCUBATION. Complete Problem List/Assessment/Plan Problem List/Assessment/Plan Acute kidney injury likely acute tubular necrosis in the setting of severe sepsis Severe sepsis/pneumonia Metabolic acidosis Encephalopathy Chronic Smith for greater than one year Failure to thrive anemia stop fluid once tolerating tube feeds phos binder tube feeds obtain anemia panel start vitamin D once tube feeds start azotemia likely due to steroids and high protein IV PPN + catabolism neuro w/u per pcp given change from baseline- currently nonverbal and confused given small body size may require dialysis for metabolic clearence to improve mentation Plan discussed with: Patient My Orders My Orders Orders - CHRISTINE MOORE MD Procedure Category Date Status Time Epoetin Venu-Epbx PHA 05/25/25 In Process (Retacrit) 16:15 Dietary Evaluation Review Comments: 1. TPN per pharmacy to meet Pt's daily needs at 48g Protein 1000kcal, when Tube feeding is not feasible. 2. Nepro@25 ml/hr, providing 49g proteinm 1062 [id number] free water, once NG feeding becomes feasible, Start at 10ml/hr and increase 10ml Q6hr till reach the goal rate. 3. Renal standard CCHO-60 once pt can tolerate PO feedings Expected Outcomes/Goals: gradual wt gain Total Time (mins): 50 CC Plasma Assessment Blood Product Administration S: [id number] CHRISTINE MOORE MD May 26, 2025 14:05
[2025-05-26] MEDS ORDERED: VANCOMYCIN 500mg/100mL 100 ML IV ONE ×2 (15:00)
[2025-05-26] MEDS: VANCOMYCIN 500mg/100mL 100 ML IV ONE (15:31)
[2025-05-26] MEDS: MAGNESIUM SULFATE 1GM/100ML 100 ML IV ONE (16:12)
--- NOTE | 2025-05-26 23:54 | DVHPN2 ---
Progress Note - Dictate Date Seen: May 26, 2025 Medical Necessity Reason Pt with a Central, PICC or Fol: Yes The following are medically ne: Smith Catheter Reason for smith catheter: Strict I&O Subjective Patient seen and examined at bedside. Breathing comfortably on room air. Overnight events reviewed. vital signs Vital Sign Date Time Temp Pulse Resp B/P (MAP) Pulse Ox O2 Delivery O2 Flow Rate FiO2 05/26/25 21:02 96.6 83 16 154/94 (114) 96 96.6 05/26/25 20:00 Room Air* 0 21 Total Intake and Output 05/25/25 05/25/25 05/26/25 15:00 23:00 07:00 Intake Total 0 ml Output Total 800 ml Balance -800 ml medications Current Medications Medications Dose Ordered Sig/Wai Route Start Time Stop Time Status Last Admin Dose Admin Nitroglycerin 0.4 mg Q5MINP PRN SL 05/09/25 23:15 Vancomycin HCl 0 ml @ 0 mls/hr UD IV 05/09/25 23:15 Cancel Pantoprazole Sodium 40 mg DAILY IV 05/10/25 10:00 05/26/25 10:53 40 MG Hydralazine HCl 10 mg Q6HP PRN IV 05/12/25 06:30 05/23/25 21:05 10 MG Ceftriaxone Sodium 50 ml @ 100 mls/hr DAILY@09 IV 05/13/25 09:00 UNV Amino Acids 0 ml @ 0 mls/hr PER PHARMACY IV 05/13/25 16:45 Amino Acids/ Electrolytes/ Dextrose 1,000 ml @ 41 mls/hr DAILY@2200 IV 05/13/25 22:00 05/26/25 21:43 41 MLS/HR Diagnostic Test (Pha) 1 strip Q6HR 05/13/25 00:00 05/26/25 17:48 1 STRIP Insulin Human Regular FOLLOW SLIDING SCALE Q6HR SC 05/13/25 00:00 05/26/25 00:19 4 UNITS Dextrose 50 ml UD IV 05/13/25 00:00 Linezolid 300 ml @ 150 mls/hr Q12HR IV 05/15/25 22:00 UNV Albuterol 2.5 mg Q6HR NEB 05/18/25 14:00 05/26/25 18:45 2.5 MG Vancomycin HCl 0 ml @ 0 mls/hr UD IV 05/23/25 15:15 Furosemide 40 mg DAILY IV 05/26/25 10:00 05/26/25 10:00 40 MG Lactated Ringer's 1,000 ml @ 75 mls/hr [id number] IV 05/25/25 12:15 05/26/25 14:58 75 MLS/HR Calcium Acetate 667 mg TIDWMEALS GT 05/25/25 18:00 05/26/25 17:46 667 MG Epoetin Venu-epbx 6,000 unit TUTHSA SC 05/25/25 16:15 05/25/25 18:27 6,000 UNIT Enteral Nutritional Formula 1,000 ml 25ML/HR GT 05/26/25 12:45 objective Gen.: Patient lying in bed in no apparent distress. Breathing on room air. Head: Normocephalic, atraumatic. Eyes: EOMI/PERRLA. Ears: Normal hearing. Normal anatomy. Neck/trachea: Trachea midline, supple. Nose: Normal external anatomy. Mouth: Moist mucous membranes. Chest: Decreased air entry bilaterally. No wheezing or rhonchi. Cardiovascular: Positive S1, positive S2. Regular rate and rhythm. Abdomen: Positive bowel sounds in all 4 quadrants. Soft, non-tender, non- distended. : Deferred. Rectal: Deferred. Skin: Warm, dry. Intact. Extremities: 2+ radial pulses bilaterally. No lower extremity edema. Neuro: Awake, alert, oriented x3. No gross motor or sensory deficits. Cranial nerves II through XII intact. Gait not assessed. laboratory and microbiology Laboratory Tests 05/26/25 06:14 Test 05/26/25 06:14 Range/Units Serum Glucose 106 74-106 mg/dL Assessment/Plan Impression: Acute hypoxemic respiratory failure Altered mental status Pneumonia Sepsis Urinary tract infection Events: Remains on room air Supplemental oxygen PRN Status post PEG. Clinimix per pharmacy for nutritional support IV fluids with LR at 75 ml/hr. Continue bronchodilators/Mucomyst Continue antibiotics Accu-Cheks, ISS. Diurese with Lasix daily Monitor renal function Monitor electrolytes. Supplement as necessary. Monitor ins and outs. Magnesium supplementation Maintain euvolemia. Protonix for GI ppx CXR on 05/23 demonstrates continuing signs of pulmonary edema. Cannot r/o left lower lobe retrocardiac consolidation/pneumonia with effusion. Labs and imaging reviewed Rest of plan as noted below. Plan: Supplemental oxygen as needed Titrate to maintain sats above 92% Incentive spirometry Bronchodilators Antibiotics F/u cultures Accu-Cheks, ISS. S/p PEG Clinimix for nutritional support Monitor renal function Diurese to euvolemia Monitor electrolytes Supplement as needed Follow up Nephrology recs Monitor blood count Transfuse blood products as needed DVT prophylaxis Prognosis: Guarded given patient's multiple co-morbidities. Rest of plan per hospitalist and other consultants. Thank you, LUMBER MARKER Jai, for allowing me to participate in this patient's care. Further recommendations will depend on the patient's clinical course. Please do not hesitate to contact me if you have any questions or concerns. This medical document was created using an electronic medical record system with [email or web address] dictation system. Although these documentations are being carefully reviewed, there may still be some phonetic and typographical changes. The errors are purely typographical, due to imperfection on the software program, and do not reflect any compromise in the patient's medical care. Dietary Evaluation Review Comments: 1. TPN per pharmacy to meet Pt's daily needs at 48g Protein 1000kcal, when Tube feeding is not feasible. 2. Nepro@25 ml/hr, providing 49g proteinm 1062 [id number] free water, once NG feeding becomes feasible, Start at 10ml/hr and increase 10ml Q6hr till reach the goal rate. 3. Renal standard CCHO-60 once pt can tolerate PO feedings Expected Outcomes/Goals: gradual wt gain Plan discussed with: Patient, Other (CARMEN Verma) CC Plasma Assessment Blood Product Administration S: [id number] EDGARDO CULLEN MD May 26, 2025 23:54
[2025-05-27] VITALS (17 sets, daily range): BP systolic 130–160; BP diastolic 81–94; PULSE 66–92; RESP 12–19; TEMP 84.4–96.6; O2SAT 97–100
[2025-05-27 07:02] LABS: Anion Gap 14.0 (5-15); Chloride 106.0 mmol/L (98-107)
[2025-05-27 07:08] LABS: BUN/Creatinine Ratio 38.2 (10.0-20.0); Glucose 97.0 mg/dL (74-106); Magnesium 1.8 mg/dL (1.6-2.6)
[2025-05-27 07:09] LABS: Albumin 2.3 g/dL (3.2-4.8); Carbon Dioxide 15.0 mmol/L (20-31); Potassium 3.2 mmol/L (3.5-5.1); Sodium 135.0 mmol/L (136-145)
[2025-05-27 07:10] LABS: Calcium 8.5 mg/dL (8.7-10.4)
[2025-05-27 07:18] LABS: Blood Urea Nitrogen 121.0 mg/dL (9-23)
--- NOTE | 2025-05-27 08:07 | DVHPN2 ---
Progress Note - Dictate Date Seen: May 27, 2025 Medical Necessity Reason Pt with a Central, PICC or Fol: Yes The following are medically ne: Smith Catheter Reason for smith catheter: Strict I&O vital signs Vital Sign Date Time Temp Pulse Resp B/P (MAP) Pulse Ox O2 Delivery O2 Flow Rate FiO2 05/27/25 07:35 76 16 100 05/27/25 07:29 Room Air* 0 21 05/27/25 05:07 96.6 155/90 (111) 96.6 Total Intake and Output 05/26/25 05/26/25 05/27/25 15:00 23:00 07:00 Intake Total 1000 ml Balance 1000 ml medications Current Medications Medications Dose Ordered Sig/Wai Route Start Time Stop Time Status Last Admin Dose Admin Nitroglycerin 0.4 mg Q5MINP PRN SL 05/09/25 23:15 Vancomycin HCl 0 ml @ 0 mls/hr UD IV 05/09/25 23:15 Cancel Pantoprazole Sodium 40 mg DAILY IV 05/10/25 10:00 05/26/25 10:53 40 MG Hydralazine HCl 10 mg Q6HP PRN IV 05/12/25 06:30 05/27/25 00:24 10 MG Ceftriaxone Sodium 50 ml @ 100 mls/hr DAILY@09 IV 05/13/25 09:00 UNV Amino Acids 0 ml @ 0 mls/hr PER PHARMACY IV 05/13/25 16:45 Amino Acids/ Electrolytes/ Dextrose 1,000 ml @ 41 mls/hr DAILY@2200 IV 05/13/25 22:00 05/26/25 21:43 41 MLS/HR Diagnostic Test (Pha) 1 strip Q6HR 05/13/25 00:00 05/27/25 06:18 1 STRIP Insulin Human Regular FOLLOW SLIDING SCALE Q6HR SC 05/13/25 00:00 05/27/25 00:31 2 UNITS Dextrose 50 ml UD IV 05/13/25 00:00 Linezolid 300 ml @ 150 mls/hr Q12HR IV 05/15/25 22:00 UNV Albuterol 2.5 mg Q6HR NEB 05/18/25 14:00 05/27/25 07:29 2.5 MG Vancomycin HCl 0 ml @ 0 mls/hr UD IV 05/23/25 15:15 Furosemide 40 mg DAILY IV 05/26/25 10:00 05/26/25 10:00 40 MG Lactated Ringer's 1,000 ml @ 75 mls/hr [id number] IV 05/25/25 12:15 05/27/25 03:47 75 MLS/HR Calcium Acetate 667 mg TIDWMEALS GT 05/25/25 18:00 05/26/25 17:46 667 MG Epoetin Venu-epbx 6,000 unit TUTHSA SC 05/25/25 16:15 05/25/25 18:27 6,000 UNIT Enteral Nutritional Formula 1,000 ml 25ML/HR GT 05/26/25 12:45 laboratory and microbiology Laboratory Tests 05/27/25 05:09 05/26/25 06:14 Test 05/27/25 05:09 Range/Units Serum Glucose 97 74-106 mg/dL Assessment/Plan Patient is a 44-year-old gentleman who presented with altered mental status/shortness of breath. He is at baseline poor historian. Information was obtained by reviewing the chart and communicating with staff. It seems that since arrival the patient was found to have severe sepsis and multiorgan dysfunction. He has been on supplemental oxygen. 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 Reportedly on arrival to Emergency room blood pressure was low on later improved. Cardiology is involved for cardiac aspects of care. There is no report of chest pain. Lying flat in bed. No JVD. Mucosa is pink and wet. Scattered rhonchi in the lungs is heard. Cardiac: Regular, tachycardic, no thrill. Systolic murmur 2/6 in apex is heard. Abdomen is soft. There is no gross mass. There is no hepatomegaly. Extremities do not reveal edema. Dorsalis pedis is 2+ bilateral Past medical history reportedly includes old history of CVA with poor functional capacity, CKD, hypertension, hyperlipidemia, diabetes mellitus, repeated history of sepsis, history of urethral stricture and recurrent UTI, history of phimosis anemia and bed-bound at baseline. There was question if the patient has baseline history of diastolic heart failure Echocardiogram of December 2024 revealed ejection fraction of 64%, trace MR/TR and right ventricular systolic pressure of 34 mm Hg. WBC: 26.7 - 20.8 - 29.9 - 29.4 - 28.9 - 21.8 - 18.4 - 16.0 - 13.0 - 7.6 - 6.6 - 6.4 - 7.6 - 9.5 Hemoglobin: 5.9 - 6.8 - 7.8 - 9.0 - 9.5 - 8.5 - 8.4 - 8.7 - 8.9 - 7.8 - 7.2 - 7.4 - 7.6 - 7.5 BNP: 528.66 - 280.34 Creatinine: 5.69 - 5.7 - 4.72 - 4.86 - 4.67 - 4.73 - 4.70 - 4.77 - 4.84 - 4.51 - 4.46 - 4.03 - 4.03 - 3.88 - 3.69 - 3.36 - 3.29 - 3.34 - 3.22 - 3.25 - 3.32 - 3.28 - 3.28 - 3.36 - 3.45 -3.37 - 3.17 Potassium: 8.0 - 7.6 - 5.8 - 5.8 - 5.0 - 5.0 - 5.0 - 4.9 - 4.4 - 3.9 - 3.2 - 3.2 - 3.4 - 4.0 - 3.7 - 3.8 - 3.5 - 3.5 - 3.5 - 3.5 - 3.3 - 3.7 - 3.6 - 3.6 - 3.5 - 3.2 Sodium: 147 - 146 - 153 - 154 - 157 - 155 - 154 - 152 - 150 - 150 - 147 - 147 - 143 - 140 - 134 - 135 - 134 - 135 - 134 - 134 - 134 - 136 - 135 - 136 - 136 -135 AST/ALT: 96/66 - 468/478 - 257/349 - 15/118 - 11/67 - 10/42 - 13/30 - 10/18 - 09/05 - 08/04 - <07/04 - / - / - Troponin (high sensitive): 81 - 89 - 92 Chest x-ray reported: IMPRESSION: Findings suggest a mild degree of pulmonary edema which is decreased compared to the prior study on 01/11/2025. Pneumonia is considered less likely Repeat chest xry revealed: IMPRESSION: 1. No interval change. Repeat chest xry revealed: 1. Increase in patchy and confluent bilateral airspace opacities which could reflect worsening multifocal pneumonia and/or pulmonary edema. 2. Probable bilateral pleural effusions, greater on the left. Repeat chest xry revealed: IMPRESSION: Improving multifocal pneumonia. Repeat chest xry revealed: IMPRESSION: Cardiomegaly with pulmonary vascular congestion and bilateral patchy airspace opacities, significantly worsened. Moderate left and small right pleural effusions. Repeat chest xry revealed: IMPRESSION: 1. Continuing signs of pulmonary edema. Can not left lower lobe retrocardiac consolidation/ pneumonia with effusion CT of Head revealed: IMPRESSION: No intracranial hemorrhage or mass effect. Advanced chronic microvascular ischemic changes with old infarcts as described. Large right mastoid effusion. Renal ultrasound reported: IMPRESSION: Bilateral medical renal disease. EKG revealed sinus tachycardia Tele shows sinus tachycardia Echocardiogram revealed: Left ventricle: Mild diffuse hypokinesis of left ventricle was seen. LVEF was around 50%. Right ventricle was normal size with mildly reduced systolic function. Both atria were normal size. Aortic valve was trileaflet. There was no aortic insufficiency/stenosis. There was mild mitral/tricuspid regurgitation. There was no pulmonary valve insufficiency. Right ventricular systolic pressure was assessed at 35 mm Hg. There was trace pericardial effusion. Patient is a 44-year-old gentleman who was at baseline bed-bound with old history of CVA who presented with altered mental status and shortness of breath. Presentation is in favor acute respiratory failure secondary to sepsis. Multiorgan failure secondary to sepsis is considered. Minimal increase in troponin is considered to reflect demand ischemia in a patient with questionable history of diastolic heart failure. In December 2024 ejection fraction in echocardiogram was 64% with no specific increase in right ventricular systolic pressure. Acute respiratory failure Sepsis Encephalopathy, metabolic versus toxic LISANDRO on CKD ATN Demand ischemia Hypernatremia Hypokalemia Anemia s/p PEG placement Cardiac suggestion for management: Manage in tele Fluid resuscitation as per Nephrology Follow-up electrolytes and kidney function tests and correct abnormalities Aspirin: 81 mg daily with old history of CVA is suggested DVT prophylaxis as per primary team Has failed swallowing evaluation s/p PEG placement Cardiac ramirez, patient is moderate risk patient for low to moderate risk EGD/PEG placement. Cardiac ramirez, you can proceed with the EGD/PEG placement under appropriate intra and post operative hemodynamic monitoring. Avoid Hypotension. s/p PEG placement Management of sepsis/infection as per primary team Pulmonary follow-up Nephrology follow up Recognizing co-morbidities, prognosis is gaurded. Further evaluation and management depends on the above and clinical course A total of 55 minutes was spent reviewing the patient record, examining the patient, making a diagnostic and therapeutic plan, discussing this plan with medical personnel, following up on diagnostic studies and following the patient for clinical stability excluding any and all procedures. At least 50% of this time was spent in direct, [id number] contact. Thank you for allowing me to participate in this patient's care. Further recommendations will depend on patient's clinical course. Please do not hesitate to contact me if you have any questions or concerns. This medical document was created using electronic medical record system with [employer] dictation system. Although this document has been carefully reviewed, there may still be some phonetic and typographical errors. These areas are purely typographical due to the imperfection of the software programs, and do not reflect any compromise in the patient's medical care. Dietary Evaluation Review Comments: 1. TPN per pharmacy to meet Pt's daily needs at 48g Protein 1000kcal, when Tube feeding is not feasible. 2. Nepro@25 ml/hr, providing 49g proteinm 1062 [id number] free water, once NG feeding becomes feasible, Start at 10ml/hr and increase 10ml Q6hr till reach the goal rate. 3. Renal standard CCHO-60 once pt can tolerate PO feedings Expected Outcomes/Goals: gradual wt gain Plan discussed with: Patient, Other (nurse) CC Plasma Assessment Blood Product Administration S: [id number] FAN HAMEED MD May 27, 2025 08:07
--- NOTE | 2025-05-27 13:54 | DVHPN2 ---
Progress Note Date Seen: May 27, 2025 Medical Necessity Reason Pt with a Central, PICC or Fol: Yes The following are medically ne: Smith Catheter Reason for smith catheter: Strict I&O Subjective Patient reports: No new complaints Objective vital signs Vital Sign Date Time Temp Pulse Resp B/P (MAP) Pulse Ox O2 Delivery O2 Flow Rate FiO2 05/27/25 12:12 66 16 98 05/27/25 12:06 Room Air* 0 21 05/27/25 09:25 134/90 05/27/25 09:00 84.4 84.4 Total Intake and Output 05/26/25 05/26/25 05/27/25 15:00 23:00 07:00 Intake Total 1000 ml Balance 1000 ml medications Current Medications Medications Dose Ordered Sig/Wai Route Start Time Stop Time Status Last Admin Dose Admin Nitroglycerin 0.4 mg Q5MINP PRN SL 05/09/25 23:15 Vancomycin HCl 0 ml @ 0 mls/hr UD IV 05/09/25 23:15 Cancel Pantoprazole Sodium 40 mg DAILY IV 05/10/25 10:00 05/27/25 09:25 40 MG Hydralazine HCl 10 mg Q6HP PRN IV 05/12/25 06:30 05/27/25 00:24 10 MG Ceftriaxone Sodium 50 ml @ 100 mls/hr DAILY@09 IV 05/13/25 09:00 UNV Amino Acids 0 ml @ 0 mls/hr PER PHARMACY IV 05/13/25 16:45 Amino Acids/ Electrolytes/ Dextrose 1,000 ml @ 41 mls/hr DAILY@2200 IV 05/13/25 22:00 05/26/25 21:43 41 MLS/HR Diagnostic Test (Pha) 1 strip Q6HR 05/13/25 00:00 05/27/25 11:21 1 STRIP Insulin Human Regular FOLLOW SLIDING SCALE Q6HR SC 05/13/25 00:00 05/27/25 00:31 2 UNITS Dextrose 50 ml UD IV 05/13/25 00:00 Linezolid 300 ml @ 150 mls/hr Q12HR IV 05/15/25 22:00 UNV Albuterol 2.5 mg Q6HR NEB 05/18/25 14:00 05/27/25 12:06 2.5 MG Vancomycin HCl 0 ml @ 0 mls/hr UD IV 05/23/25 15:15 Furosemide 40 mg DAILY IV 05/26/25 10:00 05/27/25 09:25 40 MG Lactated Ringer's 1,000 ml @ 75 mls/hr [id number] IV 05/25/25 12:15 05/27/25 03:47 75 MLS/HR Calcium Acetate 667 mg TIDWMEALS GT 05/25/25 18:00 05/27/25 09:25 667 MG Epoetin Venu-epbx 6,000 unit TUTHSA SC 05/25/25 16:15 05/27/25 10:23 6,000 UNIT Enteral Nutritional Formula 1,000 ml 25ML/HR GT 05/26/25 12:45 Examination: GENERAL:Abnormal, LUNGS:Abnormal, CVS:Normal laboratory and microbiology Laboratory Tests 05/27/25 05:09 05/26/25 06:14 Test 05/27/25 05:09 Range/Units Serum Glucose 97 74-106 mg/dL Microbiology Date/Time Source Procedure Growth Status 05/11/25 23:45 Voided Urine Urine Culture - Final Yeast, not Diana albicans Complete 05/10/25 02:49 Nose MRSA Screen - Final Methicillin Resistant S.aureus Complete 05/09/25 19:30 Blood Blood Culture - Final NO GROWTH AFTER 5 DAYS OF INCUBATION. Complete Problem List/Assessment/Plan Problem List/Assessment/Plan Acute kidney injury likely acute tubular necrosis in the setting of severe sepsis Severe sepsis/pneumonia Metabolic acidosis Encephalopathy Chronic Smith for greater than one year Failure to thrive anemia Continue IV fluids Monitor patient's respiratory status to prevent overload Transition to oral feeds when able tube feeds Calcium acetate phosphorus today is 5.0 recommend checking tomorrow and stopping if phosphorus level less than 4.5 start vitamin D once tube feeds start azotemia likely due to steroids and high protein IV PPN + catabolism, given small body size avoid high protein feeds neuro w/u per pcp given change from baseline- currently nonverbal and confused given small body size may require dialysis for metabolic clearence to improve mentation , BUN lower today will continue to monitor Plan discussed with: Patient Dietary Evaluation Review Comments: 1. TPN per pharmacy to meet Pt's daily needs at 48g Protein 1000kcal, when Tube feeding is not feasible. 2. Nepro@25 ml/hr, providing 49g proteinm 1062 [id number] free water, once NG feeding becomes feasible, Start at 10ml/hr and increase 10ml Q6hr till reach the goal rate. 3. Renal standard CCHO-60 once pt can tolerate PO feedings Expected Outcomes/Goals: gradual wt gain CC Plasma Assessment Blood Product Administration S: [id number] CHRISTINE MOORE MD May 27, 2025 13:54
[2025-05-27] MEDS: POTASSIUM CHL 20MEQ/100ML 100 ML IV ONE (14:07)
[2025-05-27] MEDS: Nepro With Carb Steady 1 Liter Bottle GT SCH (17:52)
--- NOTE | 2025-05-27 19:12 | DVHPN2 ---
Progress Note - Dictate Date Seen: May 27, 2025 Medical Necessity Reason Pt with a Central, PICC or Fol: Yes The following are medically ne: Smith Catheter Reason for smith catheter: Strict I&O vital signs Vital Sign Date Time Temp Pulse Resp B/P (MAP) Pulse Ox O2 Delivery O2 Flow Rate FiO2 05/27/25 16:34 96.6 74 19 141/89 (106) 99 96.6 05/27/25 12:06 Room Air* 0 21 Total Intake and Output 05/26/25 05/26/25 05/27/25 15:00 23:00 07:00 Intake Total 1000 ml Balance 1000 ml medications Current Medications Medications Dose Ordered Sig/Wai Route Start Time Stop Time Status Last Admin Dose Admin Nitroglycerin 0.4 mg Q5MINP PRN SL 05/09/25 23:15 Vancomycin HCl 0 ml @ 0 mls/hr UD IV 05/09/25 23:15 Cancel Pantoprazole Sodium 40 mg DAILY IV 05/10/25 10:00 05/27/25 09:25 40 MG Hydralazine HCl 10 mg Q6HP PRN IV 05/12/25 06:30 05/27/25 00:24 10 MG Ceftriaxone Sodium 50 ml @ 100 mls/hr DAILY@09 IV 05/13/25 09:00 UNV Diagnostic Test (Pha) 1 strip Q6HR 05/13/25 00:00 05/27/25 18:01 1 STRIP Insulin Human Regular FOLLOW SLIDING SCALE Q6HR SC 05/13/25 00:00 05/27/25 18:17 2 UNITS Dextrose 50 ml UD IV 05/13/25 00:00 Linezolid 300 ml @ 150 mls/hr Q12HR IV 05/15/25 22:00 UNV Albuterol 2.5 mg Q6HR NEB 05/18/25 14:00 05/27/25 18:03 2.5 MG Vancomycin HCl 0 ml @ 0 mls/hr UD IV 05/23/25 15:15 Furosemide 40 mg DAILY IV 05/26/25 10:00 05/27/25 09:25 40 MG Lactated Ringer's 1,000 ml @ 75 mls/hr [id number] IV 05/25/25 12:15 05/27/25 17:42 75 MLS/HR Calcium Acetate 667 mg TIDWMEALS GT 05/25/25 18:00 05/27/25 18:01 667 MG Epoetin Venu-epbx 6,000 unit TUTHSA SC 05/25/25 16:15 05/27/25 10:23 6,000 UNIT Enteral Nutritional Formula 1,000 ml 25ML/HR GT 05/26/25 12:45 05/27/25 17:52 1,000 ML objective General Appearance: alert, no distress HEENT: EOMI, PERRLA, normal external inspect of ears, no icterus, no nasal drainage Neck: no carotid bruit, no jugular venous distention (JVD), no lymphadenopathy Chest: normal thorax Respiratory: clear to auscultation, normal air movement Cardiovascular: regular rate and rhythm, no diastolic murmur, no jugular venous distention (JVD), no rub, no systolic murmur Abdominal: soft, no hepatomegaly, no mass, no splenomegaly, no tenderness Genitourinary: grossly normal external Musculoskeletal: no joint tenderness, no swelling Extremities: normal pulses, no calf tenderness, no clubbing, no cyanosis, no edema Skin: no bruising, no jaundice, no rash Neurological: alert, No focal deficit laboratory and microbiology Laboratory Tests 05/27/25 05:09 05/26/25 06:14 Test 05/27/25 05:09 Range/Units Serum Glucose 97 74-106 mg/dL Problem List 1. Sepsis IV Abx 2. Acute on chronic anemia Medications, Monitoring 3. LISANDRO with CKD 3b Nephrology consult 4. Bed bound Monitoring 5. CVA with residual deficits Monitoring 6. NSTEMI II, demand ischemia Cardiology consult, monitor EKG 7. MRSA w/ Nares Medications, Monitoring 8. Hyperkalemia r/t LISANDRO Hyperkalemia Tx 9. Hypoglycemia Medications, Monitoring Assessment/Plan Subjective Patient is more awake and alert. Objective I spoke with the mom in regards to plan of care. Hospice company is able to take tube feeding. Patient is s/p PEG tube placement. Clinimix has been ongoing and tube feeding for some reason has not been initiated Plan Please start tube feeding. DC Clinimix at the initiation of tube feeding. DC planning home with hospice. Dietary Evaluation Review Comments: 1. TPN per pharmacy to meet Pt's daily needs at 48g Protein 1000kcal, when Tube feeding is not feasible. 2. Nepro@25 ml/hr, providing 49g proteinm 1062 [id number] free water, once NG feeding becomes feasible, Start at 10ml/hr and increase 10ml Q6hr till reach the goal rate. 3. Renal standard CCHO-60 once pt can tolerate PO feedings Expected Outcomes/Goals: gradual wt gain Plan discussed with: Patient, Other CC Plasma Assessment Blood Product Administration S: [id number] RAÚL STEEL NP May 27, 2025 19:12
--- NOTE | 2025-05-27 21:57 | DVHPN2 ---
Progress Note - Dictate Date Seen: May 27, 2025 Medical Necessity Reason Pt with a Central, PICC or Fol: Yes The following are medically ne: Smith Catheter Reason for smith catheter: Strict I&O Subjective Patient seen and examined at bedside. Breathing comfortably on room air. Overnight events reviewed. vital signs Vital Sign Date Time Temp Pulse Resp B/P (MAP) Pulse Ox O2 Delivery O2 Flow Rate FiO2 05/27/25 21:00 96.1 81 18 152/85 (107) 99 96.1 05/27/25 20:00 Room Air* 0 21 Total Intake and Output 05/26/25 05/26/25 05/27/25 15:00 23:00 07:00 Intake Total 1000 ml Balance 1000 ml medications Current Medications Medications Dose Ordered Sig/Wai Route Start Time Stop Time Status Last Admin Dose Admin Nitroglycerin 0.4 mg Q5MINP PRN SL 05/09/25 23:15 Vancomycin HCl 0 ml @ 0 mls/hr UD IV 05/09/25 23:15 Cancel Pantoprazole Sodium 40 mg DAILY IV 05/10/25 10:00 05/27/25 09:25 40 MG Hydralazine HCl 10 mg Q6HP PRN IV 05/12/25 06:30 05/27/25 00:24 10 MG Ceftriaxone Sodium 50 ml @ 100 mls/hr DAILY@09 IV 05/13/25 09:00 UNV Diagnostic Test (Pha) 1 strip Q6HR 05/13/25 00:00 05/27/25 18:01 1 STRIP Insulin Human Regular FOLLOW SLIDING SCALE Q6HR SC 05/13/25 00:00 05/27/25 18:17 2 UNITS Dextrose 50 ml UD IV 05/13/25 00:00 Linezolid 300 ml @ 150 mls/hr Q12HR IV 05/15/25 22:00 UNV Albuterol 2.5 mg Q6HR NEB 05/18/25 14:00 05/27/25 18:03 2.5 MG Vancomycin HCl 0 ml @ 0 mls/hr UD IV 05/23/25 15:15 Furosemide 40 mg DAILY IV 05/26/25 10:00 05/27/25 09:25 40 MG Lactated Ringer's 1,000 ml @ 75 mls/hr [id number] IV 05/25/25 12:15 05/27/25 17:42 75 MLS/HR Calcium Acetate 667 mg TIDWMEALS GT 05/25/25 18:00 05/27/25 18:01 667 MG Epoetin Venu-epbx 6,000 unit TUTHSA SC 05/25/25 16:15 05/27/25 10:23 6,000 UNIT Enteral Nutritional Formula 1,000 ml 25ML/HR GT 05/26/25 12:45 05/27/25 17:52 1,000 ML objective Gen.: Patient lying in bed in no apparent distress. Breathing on room air. Head: Normocephalic, atraumatic. Eyes: EOMI/PERRLA. Ears: Normal hearing. Normal anatomy. Neck/trachea: Trachea midline, supple. Nose: Normal external anatomy. Mouth: Moist mucous membranes. Chest: Decreased air entry bilaterally. No wheezing or rhonchi. Cardiovascular: Positive S1, positive S2. Regular rate and rhythm. Abdomen: Positive bowel sounds in all 4 quadrants. Soft, non-tender, non- distended. : Deferred. Rectal: Deferred. Skin: Warm, dry. Intact. Extremities: 2+ radial pulses bilaterally. No lower extremity edema. Neuro: Awake, alert, oriented x3. No gross motor or sensory deficits. Cranial nerves II through XII intact. Gait not assessed. laboratory and microbiology Laboratory Tests 05/27/25 05:09 05/26/25 06:14 Test 05/27/25 05:09 Range/Units Serum Glucose 97 74-106 mg/dL Assessment/Plan Impression: Acute hypoxemic respiratory failure Altered mental status Pneumonia Sepsis Urinary tract infection Events: Remains on room air Supplemental oxygen PRN Status post PEG. Clinimix per pharmacy for nutritional support IV fluids with LR at 75 ml/hr. Continue bronchodilators/Mucomyst Continue antibiotics Accu-Cheks, ISS. Diurese with Lasix daily Monitor renal function Monitor electrolytes. Supplement as necessary. Monitor ins and outs. Potassium supplementation Maintain euvolemia. Protonix for GI ppx CXR on 05/23 demonstrates continuing signs of pulmonary edema. Cannot r/o left lower lobe retrocardiac consolidation/pneumonia with effusion. Labs and imaging reviewed Rest of plan as noted below. Plan: Supplemental oxygen as needed Titrate to maintain sats above 92% Incentive spirometry Bronchodilators Antibiotics F/u cultures Accu-Cheks, ISS. S/p PEG Clinimix for nutritional support Monitor renal function Diurese to euvolemia Monitor electrolytes Supplement as needed Follow up Nephrology recs Monitor blood count Transfuse blood products as needed DVT prophylaxis Prognosis: Guarded given patient's multiple co-morbidities. Rest of plan per hospitalist and other consultants. Thank you, ANITHA Vergara, for allowing me to participate in this patient's care. Further recommendations will depend on the patient's clinical course. Please do not hesitate to contact me if you have any questions or concerns. This medical document was created using an electronic medical record system with [employer] dictation system. Although these documentations are being carefully reviewed, there may still be some phonetic and typographical changes. The errors are purely typographical, due to imperfection on the software program, and do not reflect any compromise in the patient's medical care. Dietary Evaluation Review Comments: 1. TPN per pharmacy to meet Pt's daily needs at 48g Protein 1000kcal, when Tube feeding is not feasible. 2. Nepro@25 ml/hr, providing 49g proteinm 1062 [id number] free water, once NG feeding becomes feasible, Start at 10ml/hr and increase 10ml Q6hr till reach the goal rate. 3. Renal standard CCHO-60 once pt can tolerate PO feedings Expected Outcomes/Goals: gradual wt gain Plan discussed with: Patient, Other (CARMEN Joseph) CC Plasma Assessment Blood Product Administration S: [id number] EDGARDO CULLEN MD May 27, 2025 21:57
[2025-05-28] VITALS (16 sets, daily range): BP systolic 100–152; BP diastolic 68–85; PULSE 67–94; RESP 14–20; TEMP 96.3–97.7; O2SAT 98–100
[2025-05-28 05:43] LABS: Hemoglobin 7.7 g/dL (13.5-17.5); Nucleated Red Blood Cells % 0.1 %
[2025-05-28 05:46] LABS: Hematocrit 22.7 % (41.0-53.0); Mean Corpuscular Hemoglobin 29.7 pg (28.0-32.0); Mean Corpuscular Volume 87.4 fL (80.0-100.0)
--- NOTE | 2025-05-28 09:42 | DVHPN2 ---
Progress Note - Dictate Date Seen: May 28, 2025 Medical Necessity Reason Pt with a Central, PICC or Fol: Yes The following are medically ne: Smith Catheter Reason for smith catheter: Strict I&O vital signs Vital Sign Date Time Temp Pulse Resp B/P (MAP) Pulse Ox O2 Delivery O2 Flow Rate FiO2 05/28/25 05:56 85 20 100 05/28/25 05:50 Room Air 0.0 05/28/25 05:50 21 05/28/25 05:50 97.7 129/78 (95) 97.7 Total Intake and Output 05/27/25 05/27/25 05/28/25 15:00 23:00 07:00 Intake Total 0 ml Output Total 600 ml Balance -600 ml medications Current Medications Medications Dose Ordered Sig/Wai Route Start Time Stop Time Status Last Admin Dose Admin Nitroglycerin 0.4 mg Q5MINP PRN SL 05/09/25 23:15 Vancomycin HCl 0 ml @ 0 mls/hr UD IV 05/09/25 23:15 Cancel Pantoprazole Sodium 40 mg DAILY IV 05/10/25 10:00 05/27/25 09:25 40 MG Hydralazine HCl 10 mg Q6HP PRN IV 05/12/25 06:30 05/27/25 23:00 10 MG Ceftriaxone Sodium 50 ml @ 100 mls/hr DAILY@09 IV 05/13/25 09:00 UNV Diagnostic Test (Pha) 1 strip Q6HR 05/13/25 00:00 05/28/25 06:07 1 STRIP Insulin Human Regular FOLLOW SLIDING SCALE Q6HR SC 05/13/25 00:00 05/27/25 18:17 2 UNITS Dextrose 50 ml UD IV 05/13/25 00:00 Linezolid 300 ml @ 150 mls/hr Q12HR IV 05/15/25 22:00 UNV Albuterol 2.5 mg Q6HR NEB 05/18/25 14:00 05/28/25 05:50 2.5 MG Vancomycin HCl 0 ml @ 0 mls/hr UD IV 05/23/25 15:15 Furosemide 40 mg DAILY IV 05/26/25 10:00 05/27/25 09:25 40 MG Lactated Ringer's 1,000 ml @ 75 mls/hr [id number] IV 05/25/25 12:15 05/27/25 17:42 75 MLS/HR Calcium Acetate 667 mg TIDWMEALS GT 05/25/25 18:00 05/27/25 18:01 667 MG Epoetin Venu-epbx 6,000 unit TUTHSA SC 05/25/25 16:15 05/27/25 10:23 6,000 UNIT Enteral Nutritional Formula 1,000 ml 25ML/HR GT 05/26/25 12:45 05/27/25 17:52 1,000 ML laboratory and microbiology Laboratory Tests 05/28/25 05:03 05/27/25 05:09 Test 05/27/25 05:09 Range/Units Serum Glucose 97 74-106 mg/dL Assessment/Plan Patient is a 44-year-old gentleman who presented with altered mental status/shortness of breath. He is at baseline poor historian. Information was obtained by reviewing the chart and communicating with staff. It seems that since arrival the patient was found to have severe sepsis and multiorgan dysfunction. He has been on supplemental oxygen. 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 Reportedly on arrival to Emergency room blood pressure was low on later improved. Cardiology is involved for cardiac aspects of care. There is no report of chest pain. Lying flat in bed. No JVD. Mucosa is pink and wet. Scattered rhonchi in the lungs is heard. Cardiac: Regular, tachycardic, no thrill. Systolic murmur 2/6 in apex is heard. Abdomen is soft. There is no gross mass. There is no hepatomegaly. Extremities do not reveal edema. Dorsalis pedis is 2+ bilateral Past medical history reportedly includes old history of CVA with poor functional capacity, CKD, hypertension, hyperlipidemia, diabetes mellitus, repeated history of sepsis, history of urethral stricture and recurrent UTI, history of phimosis anemia and bed-bound at baseline. There was question if the patient has baseline history of diastolic heart failure Echocardiogram of December 2024 revealed ejection fraction of 64%, trace MR/TR and right ventricular systolic pressure of 34 mm Hg. WBC: 26.7 - 20.8 - 29.9 - 29.4 - 28.9 - 21.8 - 18.4 - 16.0 - 13.0 - 7.6 - 6.6 - 6.4 - 7.6 - 9.5 - 9.9 Hemoglobin: 5.9 - 6.8 - 7.8 - 9.0 - 9.5 - 8.5 - 8.4 - 8.7 - 8.9 - 7.8 - 7.2 - 7.4 - 7.6 - 7.5 - 7.7 BNP: 528.66 - 280.34 Creatinine: 5.69 - 5.7 - 4.72 - 4.86 - 4.67 - 4.73 - 4.70 - 4.77 - 4.84 - 4.51 - 4.46 - 4.03 - 4.03 - 3.88 - 3.69 - 3.36 - 3.29 - 3.34 - 3.22 - 3.25 - 3.32 - 3.28 - 3.28 - 3.36 - 3.45 -3.37 - 3.17 - 3.06 Potassium: 8.0 - 7.6 - 5.8 - 5.8 - 5.0 - 5.0 - 5.0 - 4.9 - 4.4 - 3.9 - 3.2 - 3.2 - 3.4 - 4.0 - 3.7 - 3.8 - 3.5 - 3.5 - 3.5 - 3.5 - 3.3 - 3.7 - 3.6 - 3.6 - 3.5 - 3.2 Sodium: 147 - 146 - 153 - 154 - 157 - 155 - 154 - 152 - 150 - 150 - 147 - 147 - 143 - 140 - 134 - 135 - 134 - 135 - 134 - 134 - 134 - 136 - 135 - 136 - 136 -135 AST/ALT: 96/66 - 468/478 - 257/349 - 15/118 - 11/67 - 10/42 - 13/30 - / - 09/05 - 08/04 - <8/10 - 12/18 - / - Troponin (high sensitive): 81 - 89 - 92 Chest x-ray reported: IMPRESSION: Findings suggest a mild degree of pulmonary edema which is decreased compared to the prior study on 01/11/2025. Pneumonia is considered less likely Repeat chest xry revealed: IMPRESSION: 1. No interval change. Repeat chest xry revealed: 1. Increase in patchy and confluent bilateral airspace opacities which could reflect worsening multifocal pneumonia and/or pulmonary edema. 2. Probable bilateral pleural effusions, greater on the left. Repeat chest xry revealed: IMPRESSION: Improving multifocal pneumonia. Repeat chest xry revealed: IMPRESSION: Cardiomegaly with pulmonary vascular congestion and bilateral patchy airspace opacities, significantly worsened. Moderate left and small right pleural effusions. Repeat chest xry revealed: IMPRESSION: 1. Continuing signs of pulmonary edema. Can not left lower lobe retrocardiac consolidation/ pneumonia with effusion CT of Head revealed: IMPRESSION: No intracranial hemorrhage or mass effect. Advanced chronic microvascular ischemic changes with old infarcts as described. Large right mastoid effusion. Renal ultrasound reported: IMPRESSION: Bilateral medical renal disease. EKG revealed sinus tachycardia Tele shows sinus tachycardia Echocardiogram revealed: Left ventricle: Mild diffuse hypokinesis of left ventricle was seen. LVEF was around 50%. Right ventricle was normal size with mildly reduced systolic function. Both atria were normal size. Aortic valve was trileaflet. There was no aortic insufficiency/stenosis. There was mild mitral/tricuspid regurgitation. There was no pulmonary valve insufficiency. Right ventricular systolic pressure was assessed at 35 mm Hg. There was trace pericardial effusion. Patient is a 44-year-old gentleman who was at baseline bed-bound with old history of CVA who presented with altered mental status and shortness of breath. Presentation is in favor acute respiratory failure secondary to sepsis. Multiorgan failure secondary to sepsis is considered. Minimal increase in troponin is considered to reflect demand ischemia in a patient with questionable history of diastolic heart failure. In December 2024 ejection fraction in echocardiogram was 64% with no specific increase in right ventricular systolic pressure. Acute respiratory failure Sepsis Encephalopathy, metabolic versus toxic LISANDRO on CKD ATN Demand ischemia Hypernatremia Hypokalemia Anemia s/p PEG placement Cardiac suggestion for management: Managed in tele Fluid resuscitation as per Nephrology Follow-up electrolytes and kidney function tests and correct abnormalities Aspirin: 81 mg daily with old history of CVA is suggested DVT prophylaxis as per primary team Has failed swallowing evaluation s/p PEG placement Cardiac ramirez, patient is moderate risk patient for low to moderate risk EGD/PEG placement. Cardiac ramirez, you can proceed with the EGD/PEG placement under appropriate intra and post operative hemodynamic monitoring. Avoid Hypotension. s/p PEG placement Management of sepsis/infection as per primary team Pulmonary follow-up Nephrology follow up Recognizing co-morbidities, prognosis is gaurded. Cardiac ramirez, stable and can be followed as outpatient Further evaluation and management depends on the above and clinical course A total of 55 minutes was spent reviewing the patient record, examining the patient, making a diagnostic and therapeutic plan, discussing this plan with medical personnel, following up on diagnostic studies and following the patient for clinical stability excluding any and all procedures. At least 50% of this time was spent in direct, [id number] contact. Thank you for allowing me to participate in this patient's care. Further recommendations will depend on patient's clinical course. Please do not hesitate to contact me if you have any questions or concerns. This medical document was created using electronic medical record system with [employer] dictation system. Although this document has been carefully reviewed, there may still be some phonetic and typographical errors. These areas are purely typographical due to the imperfection of the software programs, and do not reflect any compromise in the patient's medical care. Dietary Evaluation Review Comments: 1. TPN per pharmacy to meet Pt's daily needs at 48g Protein 1000kcal, when Tube feeding is not feasible. 2. Nepro@25 ml/hr, providing 49g proteinm 1062 [id number] free water, once NG feeding becomes feasible, Start at 10ml/hr and increase 10ml Q6hr till reach the goal rate. 3. Renal standard CCHO-60 once pt can tolerate PO feedings Expected Outcomes/Goals: gradual wt gain Plan discussed with: Other (nurse) CC Plasma Assessment Blood Product Administration S: [id number] FAN HAMEED MD May 28, 2025 09:42
[2025-05-28] MEDS: LACTULOSE 20Gm/30ML SOLN PEG SCH (12:15)
--- NOTE | 2025-05-28 13:10 | DVHPN2 ---
Progress Note - Dictate Date Seen: May 28, 2025 Medical Necessity Reason Pt with a Central, PICC or Fol: Yes The following are medically ne: Smith Catheter Reason for smith catheter: Strict I&O Subjective Patient lethargic, moving spontaneously. vital signs Vital Sign Date Time Temp Pulse Resp B/P (MAP) Pulse Ox O2 Delivery O2 Flow Rate FiO2 05/28/25 10:12 131/89 05/28/25 10:05 98 Room Air* 0 21 05/28/25 09:00 75 19 05/28/25 05:50 97.7 97.7 Total Intake and Output 05/27/25 05/27/25 05/28/25 15:00 23:00 07:00 Intake Total 0 ml Output Total 600 ml Balance -600 ml medications Current Medications Medications Dose Ordered Sig/Wai Route Start Time Stop Time Status Last Admin Dose Admin Nitroglycerin 0.4 mg Q5MINP PRN SL 05/09/25 23:15 Vancomycin HCl 0 ml @ 0 mls/hr UD IV 05/09/25 23:15 Cancel Pantoprazole Sodium 40 mg DAILY IV 05/10/25 10:00 05/28/25 10:14 40 MG Hydralazine HCl 10 mg Q6HP PRN IV 05/12/25 06:30 05/27/25 23:00 10 MG Ceftriaxone Sodium 50 ml @ 100 mls/hr DAILY@09 IV 05/13/25 09:00 UNV Diagnostic Test (Pha) 1 strip Q6HR 05/13/25 00:00 05/28/25 12:14 1 STRIP Insulin Human Regular FOLLOW SLIDING SCALE Q6HR SC 05/13/25 00:00 05/27/25 18:17 2 UNITS Dextrose 50 ml UD IV 05/13/25 00:00 Linezolid 300 ml @ 150 mls/hr Q12HR IV 05/15/25 22:00 UNV Albuterol 2.5 mg Q6HR NEB 05/18/25 14:00 05/28/25 05:50 2.5 MG Vancomycin HCl 0 ml @ 0 mls/hr UD IV 05/23/25 15:15 Furosemide 40 mg DAILY IV 05/26/25 10:00 05/28/25 10:12 40 MG Lactated Ringer's 1,000 ml @ 75 mls/hr [id number] IV 05/25/25 12:15 05/27/25 17:42 75 MLS/HR Calcium Acetate 667 mg TIDWMEALS GT 05/25/25 18:00 05/28/25 12:16 667 MG Epoetin Venu-epbx 6,000 unit TUTHSA SC 05/25/25 16:15 05/27/25 10:23 6,000 UNIT Enteral Nutritional Formula 1,000 ml 25ML/HR GT 05/26/25 12:45 05/27/25 17:52 1,000 ML Lactulose 30 ml Q6HR PEG 05/28/25 12:00 05/28/25 12:15 30 ML objective Gen: Cachectic lungs: Occasional coarse breath sounds cvs: no rub ext: + trace edema laboratory and microbiology Laboratory Tests 05/28/25 05:03 05/27/25 05:09 Test 05/27/25 05:09 Range/Units Serum Glucose 97 74-106 mg/dL Assessment/Plan Problem List/Assessment/Plan Acute kidney injury likely acute tubular necrosis in the setting of severe sepsis Severe sepsis/pneumonia Metabolic acidosis Encephalopathy Chronic Smith for greater than one year Failure to thrive anemia - we will continue to monitor clinical response to conservative management/IV fluids - overall poor prognosis due to significant comorbid conditions - will check FENA Dietary Evaluation Review Comments: 1. TPN per pharmacy to meet Pt's daily needs at 48g Protein 1000kcal, when Tube feeding is not feasible. 2. Nepro@25 ml/hr, providing 49g proteinm 1062 [id number] free water, once NG feeding becomes feasible, Start at 10ml/hr and increase 10ml Q6hr till reach the goal rate. 3. Renal standard CCHO-60 once pt can tolerate PO feedings Expected Outcomes/Goals: gradual wt gain Plan discussed with: Other CC Plasma Assessment Blood Product Administration S: [id number] ZORAIDA BARDALES MD May 28, 2025 13:10
--- NOTE | 2025-05-28 13:14 | DVHPN2 ---
Progress Note Date Seen: May 28, 2025 Medical Necessity Reason Pt with a Central, PICC or Fol: Yes The following are medically ne: Smith Catheter Reason for smith catheter: Strict I&O Subjective Review of Systems: Not Done (unable to obtain) Objective vital signs Vital Sign Date Time Temp Pulse Resp B/P (MAP) Pulse Ox O2 Delivery O2 Flow Rate FiO2 05/28/25 10:12 131/89 05/28/25 10:05 98 Room Air* 0 21 05/28/25 09:00 75 19 05/28/25 05:50 97.7 97.7 Total Intake and Output 05/27/25 05/27/25 05/28/25 15:00 23:00 07:00 Intake Total 0 ml Output Total 600 ml Balance -600 ml medications Current Medications Medications Dose Ordered Sig/Wai Route Start Time Stop Time Status Last Admin Dose Admin Nitroglycerin 0.4 mg Q5MINP PRN SL 05/09/25 23:15 Vancomycin HCl 0 ml @ 0 mls/hr UD IV 05/09/25 23:15 Cancel Pantoprazole Sodium 40 mg DAILY IV 05/10/25 10:00 05/28/25 10:14 40 MG Hydralazine HCl 10 mg Q6HP PRN IV 05/12/25 06:30 05/27/25 23:00 10 MG Ceftriaxone Sodium 50 ml @ 100 mls/hr DAILY@09 IV 05/13/25 09:00 UNV Diagnostic Test (Pha) 1 strip Q6HR 05/13/25 00:00 05/28/25 12:14 1 STRIP Insulin Human Regular FOLLOW SLIDING SCALE Q6HR SC 05/13/25 00:00 05/27/25 18:17 2 UNITS Dextrose 50 ml UD IV 05/13/25 00:00 Linezolid 300 ml @ 150 mls/hr Q12HR IV 05/15/25 22:00 UNV Albuterol 2.5 mg Q6HR NEB 05/18/25 14:00 05/28/25 05:50 2.5 MG Vancomycin HCl 0 ml @ 0 mls/hr UD IV 05/23/25 15:15 Furosemide 40 mg DAILY IV 05/26/25 10:00 05/28/25 10:12 40 MG Lactated Ringer's 1,000 ml @ 75 mls/hr [id number] IV 05/25/25 12:15 05/27/25 17:42 75 MLS/HR Calcium Acetate 667 mg TIDWMEALS GT 05/25/25 18:00 05/28/25 12:16 667 MG Epoetin Venu-epbx 6,000 unit TUTHSA SC 05/25/25 16:15 05/27/25 10:23 6,000 UNIT Enteral Nutritional Formula 1,000 ml 25ML/HR GT 05/26/25 12:45 05/27/25 17:52 1,000 ML Lactulose 30 ml Q6HR PEG 05/28/25 12:00 05/28/25 12:15 30 ML Examination: GENERAL:Normal, LUNGS:Normal, CVS:Normal, ABDOMEN:Normal, SKIN:Normal laboratory and microbiology Laboratory Tests 05/28/25 05:03 05/27/25 05:09 Test 05/27/25 05:09 Range/Units Serum Glucose 97 74-106 mg/dL Microbiology Date/Time Source Procedure Growth Status 05/11/25 23:45 Voided Urine Urine Culture - Final Yeast, not Diana albicans Complete 05/10/25 02:49 Nose MRSA Screen - Final Methicillin Resistant S.aureus Complete 05/09/25 19:30 Blood Blood Culture - Final NO GROWTH AFTER 5 DAYS OF INCUBATION. Complete Labs and/or images reviewed: Image(s) reviewed by me Problem List/Assessment/Plan Problem List/Assessment/Plan 1. Sepsis IV Abx 2. Acute on chronic anemia Medications, Monitoring 3. LISANDRO with CKD 3b Nephrology consult 4. Bed bound Monitoring 5. CVA with residual deficits Monitoring 6. NSTEMI II, demand ischemia Cardiology consult, monitor EKG 7. MRSA w/ Nares Medications, Monitoring 8. Hyperkalemia r/t LISANDRO Hyperkalemia Tx 9. Hypoglycemia Medications, Monitoring Assessment/Plan Subjective Patient is more awake and alert. Objective I spoke with the mom in regards to plan of care. Hospice company is able to take tube feeding. Patient is s/p PEG tube placement. Tube feedings were supposed to be started several days ago and were not started until last night. As of yet patient is tolerating tube feedings however he has not had a bowel movement. We will discharge once patient has a bowel movement. Plan Continue with tube feedings, we will discharge once patient has a bowel movement. DC Clinimix at the initiation of tube feeding. DC planning home with hospice. Plan discussed with: Other (mother at bedside) My Orders My Orders Orders - ASIYA JACQUES Procedure Category Date Status Time Lactulose Oral PHA 05/28/25 In Process 12:00 Dietary Evaluation Review Comments: 1. TPN per pharmacy to meet Pt's daily needs at 48g Protein 1000kcal, when Tube feeding is not feasible. 2. Nepro@25 ml/hr, providing 49g proteinm 1062 [id number] free water, once NG feeding becomes feasible, Start at 10ml/hr and increase 10ml Q6hr till reach the goal rate. 3. Renal standard CCHO-60 once pt can tolerate PO feedings Expected Outcomes/Goals: gradual wt gain Date of Service: May 28, 2025 Billing Provider: MARIBEL WHALEN MD Common Visit Codes: 52436-[id number] INP/OBS CARE (MOD) CC Plasma Assessment Blood Product Administration S: [id number] ASIYA JACQUES May 28, 2025 13:14
--- NOTE | 2025-05-28 14:22 | DVH ---
Exam: XY KUB ABDOMEN SINGLE VIEW Indication: r.o ilues Comparison: None Technique: 2 radiographic views of the abdomen. Findings: Gastrostomy tube in satisfactory position Nonspecific bowel-gas pattern. There is no definite evidence for pneumoperitoneum. No abnormal calcifications noted. Impression: Nonspecific bowel-gas pattern.
--- NOTE | 2025-05-28 15:40 | DVHPN2 ---
Consult Progress Note Objective vital signs Vital Sign Date Time Temp Pulse Resp B/P (MAP) Pulse Ox O2 Delivery O2 Flow Rate FiO2 05/28/25 13:00 96.9 74 17 127/80 (96) 100 96.9 05/28/25 10:05 Room Air* 0 21 Total Intake and Output 05/27/25 05/27/25 05/28/25 15:00 23:00 07:00 Intake Total 0 ml Output Total 600 ml Balance -600 ml medications Current Medications Medications Dose Ordered Sig/Wai Route Start Time Stop Time Status Last Admin Dose Admin Nitroglycerin 0.4 mg Q5MINP PRN SL 05/09/25 23:15 Vancomycin HCl 0 ml @ 0 mls/hr UD IV 05/09/25 23:15 Cancel Pantoprazole Sodium 40 mg DAILY IV 05/10/25 10:00 05/28/25 10:14 40 MG Hydralazine HCl 10 mg Q6HP PRN IV 05/12/25 06:30 05/27/25 23:00 10 MG Ceftriaxone Sodium 50 ml @ 100 mls/hr DAILY@09 IV 05/13/25 09:00 UNV Diagnostic Test (Pha) 1 strip Q6HR 05/13/25 00:00 05/28/25 12:14 1 STRIP Insulin Human Regular FOLLOW SLIDING SCALE Q6HR SC 05/13/25 00:00 05/27/25 18:17 2 UNITS Dextrose 50 ml UD IV 05/13/25 00:00 Linezolid 300 ml @ 150 mls/hr Q12HR IV 05/15/25 22:00 UNV Albuterol 2.5 mg Q6HR NEB 05/18/25 14:00 05/28/25 05:50 2.5 MG Vancomycin HCl 0 ml @ 0 mls/hr UD IV 05/23/25 15:15 Furosemide 40 mg DAILY IV 05/26/25 10:00 05/28/25 10:12 40 MG Lactated Ringer's 1,000 ml @ 75 mls/hr [id number] IV 05/25/25 12:15 05/27/25 17:42 75 MLS/HR Calcium Acetate 667 mg TIDWMEALS GT 05/25/25 18:00 05/28/25 12:16 667 MG Epoetin Venu-epbx 6,000 unit TUTHSA SC 05/25/25 16:15 05/27/25 10:23 6,000 UNIT Enteral Nutritional Formula 1,000 ml 25ML/HR GT 05/26/25 12:45 05/27/25 17:52 1,000 ML Lactulose 30 ml Q6HR PEG 05/28/25 12:00 05/28/25 12:15 30 ML laboratory and microbiology Laboratory Tests 05/28/25 05:03 05/27/25 05:09 Test 05/27/25 05:09 Range/Units Serum Glucose 97 74-106 mg/dL Dietary Evaluation Review Comments: 1. TPN per pharmacy to meet Pt's daily needs at 48g Protein 1000kcal, when Tube feeding is not feasible. 2. Nepro@25 ml/hr, providing 49g proteinm 1062 [id number] free water, once NG feeding becomes feasible, Start at 10ml/hr and increase 10ml Q6hr till reach the goal rate. 3. Renal standard CCHO-60 once pt can tolerate PO feedings Expected Outcomes/Goals: gradual wt gain CC Plasma Assessment Blood Product Administration S: [id number] MOISE FRANKEL MD May 28, 2025 15:40
--- NOTE | 2025-05-28 23:34 | DVHPN2 ---
Progress Note - Dictate Date Seen: May 28, 2025 Medical Necessity Reason Pt with a Central, PICC or Fol: Yes The following are medically ne: Smith Catheter Reason for smith catheter: Strict I&O Subjective Patient seen and examined at bedside. Breathing comfortably on room air. Overnight events reviewed. vital signs Vital Sign Date Time Temp Pulse Resp B/P (MAP) Pulse Ox O2 Delivery O2 Flow Rate FiO2 05/28/25 21:00 97.6 73 17 120/72 (88) 100 97.6 05/28/25 18:41 Room Air* 0 21 Total Intake and Output 05/27/25 05/27/25 05/28/25 15:00 23:00 07:00 Intake Total 0 ml Output Total 600 ml Balance -600 ml medications Current Medications Medications Dose Ordered Sig/Wai Route Start Time Stop Time Status Last Admin Dose Admin Nitroglycerin 0.4 mg Q5MINP PRN SL 05/09/25 23:15 Vancomycin HCl 0 ml @ 0 mls/hr UD IV 05/09/25 23:15 Cancel Pantoprazole Sodium 40 mg DAILY IV 05/10/25 10:00 05/28/25 10:14 40 MG Hydralazine HCl 10 mg Q6HP PRN IV 05/12/25 06:30 05/27/25 23:00 10 MG Ceftriaxone Sodium 50 ml @ 100 mls/hr DAILY@09 IV 05/13/25 09:00 UNV Diagnostic Test (Pha) 1 strip Q6HR 05/13/25 00:00 05/28/25 17:37 1 STRIP Insulin Human Regular FOLLOW SLIDING SCALE Q6HR SC 05/13/25 00:00 05/27/25 18:17 2 UNITS Dextrose 50 ml UD IV 05/13/25 00:00 Linezolid 300 ml @ 150 mls/hr Q12HR IV 05/15/25 22:00 UNV Albuterol 2.5 mg Q6HR NEB 05/18/25 14:00 05/28/25 18:41 2.5 MG Furosemide 40 mg DAILY IV 05/26/25 10:00 05/28/25 10:12 40 MG Lactated Ringer's 1,000 ml @ 75 mls/hr [id number] IV 05/25/25 12:15 05/28/25 20:34 75 MLS/HR Calcium Acetate 667 mg TIDWMEALS GT 05/25/25 18:00 05/28/25 17:37 667 MG Epoetin Venu-epbx 6,000 unit TUTHSA SC 05/25/25 16:15 05/27/25 10:23 6,000 UNIT Enteral Nutritional Formula 1,000 ml 25ML/HR GT 05/26/25 12:45 05/27/25 17:52 1,000 ML Lactulose 30 ml Q6HR PEG 05/28/25 12:00 05/28/25 12:15 30 ML objective Gen.: Patient lying in bed in no apparent distress. Breathing on room air. Head: Normocephalic, atraumatic. Eyes: EOMI/PERRLA. Ears: Normal hearing. Normal anatomy. Neck/trachea: Trachea midline, supple. Nose: Normal external anatomy. Mouth: Moist mucous membranes. Chest: Decreased air entry bilaterally. No wheezing or rhonchi. Cardiovascular: Positive S1, positive S2. Regular rate and rhythm. Abdomen: Positive bowel sounds in all 4 quadrants. Soft, non-tender, non- distended. : Deferred. Rectal: Deferred. Skin: Warm, dry. Intact. Extremities: 2+ radial pulses bilaterally. No lower extremity edema. Neuro: Awake, alert, oriented x3. No gross motor or sensory deficits. Cranial nerves II through XII intact. Gait not assessed. laboratory and microbiology Laboratory Tests 05/28/25 05:03 05/27/25 05:09 Test 05/27/25 05:09 Range/Units Serum Glucose 97 74-106 mg/dL Assessment/Plan Impression: Acute hypoxemic respiratory failure Altered mental status Pneumonia Sepsis Urinary tract infection Events: Remains on room air Supplemental oxygen PRN Patient had a BM today Chest/abd x-ray revealed nonspecific bowel gas pattern; no e/o pneumoperitoneum GI recs appreciated Status post PEG. Clinimix per pharmacy for nutritional support IV fluids with LR at 75 ml/hr. Continue bronchodilators Continue antibiotics Diurese with Lasix daily Monitor renal function Monitor electrolytes. Supplement as necessary. Monitor ins and outs. Potassium, magnesium supplementation Goal K of 4.0, mag of 2.0 Maintain euvolemia. Calcium at goal when corrected for hypoalbuminemia Monitor hemoglobin - currently 7.7 g/dl Transfuse if less than 7.0 g/dL. Protonix for GI ppx Wound care Disposition per hospitalist. Labs and imaging reviewed Rest of plan as noted below. Plan: Supplemental oxygen as needed Titrate to maintain sats above 92% Incentive spirometry Bronchodilators Antibiotics F/u cultures Accu-Cheks, ISS. S/p PEG Clinimix for nutritional support Monitor renal function Diurese to euvolemia Monitor electrolytes Supplement as needed Follow up Nephrology recs Monitor blood count Transfuse blood products as needed DVT prophylaxis Prognosis: Guarded given patient's multiple co-morbidities. Rest of plan per hospitalist and other consultants. Thank you, [employer]CH[employer] Jai, for allowing me to participate in this patient's care. Further recommendations will depend on the patient's clinical course. Please do not hesitate to contact me if you have any questions or concerns. This medical document was created using an electronic medical record system with [employer] dictation system. Although these documentations are being carefully reviewed, there may still be some phonetic and typographical changes. The errors are purely typographical, due to imperfection on the software program, and do not reflect any compromise in the patient's medical care. Dietary Evaluation Review Comments: 1. TPN per pharmacy to meet Pt's daily needs at 48g Protein 1000kcal, when Tube feeding is not feasible. 2. Nepro@25 ml/hr, providing 49g proteinm 1062 [id number] free water, once NG feeding becomes feasible, Start at 10ml/hr and increase 10ml Q6hr till reach the goal rate. 3. Renal standard CCHO-60 once pt can tolerate PO feedings Expected Outcomes/Goals: gradual wt gain Plan discussed with: Patient, Other (CARMEN Toscano) CC Plasma Assessment Blood Product Administration S: [id number] EDGARDO CULLEN MD May 28, 2025 23:34
[2025-05-29] VITALS (13 sets, daily range): BP systolic 118–143; BP diastolic 75–89; PULSE 76–86; RESP 12–18; TEMP 36.8; O2SAT 97–100
[2025-05-29 06:46] LABS: Anion Gap 14 (5-15); BUN/Creatinine Ratio 39.3 (10.0-20.0); Glucose 82 mg/dL (74-106); Sodium 140 mmol/L (136-145)
[2025-05-29 07:14] LABS: Alanine Aminotransferase 84 U/L (7-40); Albumin 2.3 g/dL (3.2-4.8); Alkaline Phosphatase 977 U/L (46-116); Bilirubin, Direct < 0.1 mg/dL (<0.3); Bilirubin, Total < 0.2 mg/dL (0.2-1.0); Calcium 8.4 mg/dL (8.7-10.4); Carbon Dioxide 17 mmol/L (20-31); Chloride 109 mmol/L (98-107); Potassium 3.1 mmol/L (3.5-5.1); Total Protein 4.9 g/dL (5.7-8.2)
[2025-05-29 07:17] LABS: Blood Urea Nitrogen 126 mg/dL (9-23)
[2025-05-29] MEDS: POTASSIUM EFFERVESENT TAB 25 MEQ PO ONE (10:27)
[2025-05-29] MEDS: LACTATED RINGER'S 1,000 ML IV SCH (10:28)
--- NOTE | 2025-05-29 10:49 | DVHPN2 ---
Progress Note - Dictate Date Seen: May 29, 2025 Medical Necessity Reason Pt with a Central, PICC or Fol: Yes The following are medically ne: Smith Catheter Reason for smith catheter: Strict I&O Subjective No significant events overnight, patient remained somewhat lethargic this morning. vital signs Vital Sign Date Time Temp Pulse Resp B/P (MAP) Pulse Ox O2 Delivery O2 Flow Rate FiO2 05/29/25 09:00 98.3 85 18 129/82 (98) 99 98.3 05/29/25 08:10 Room Air* 0 21 medications Current Medications Medications Dose Ordered Sig/Wai Route Start Time Stop Time Status Last Admin Dose Admin Nitroglycerin 0.4 mg Q5MINP PRN SL 05/09/25 23:15 Vancomycin HCl 0 ml @ 0 mls/hr UD IV 05/09/25 23:15 Cancel Pantoprazole Sodium 40 mg DAILY IV 05/10/25 10:00 05/29/25 10:28 40 MG Hydralazine HCl 10 mg Q6HP PRN IV 05/12/25 06:30 05/27/25 23:00 10 MG Ceftriaxone Sodium 50 ml @ 100 mls/hr DAILY@09 IV 05/13/25 09:00 UNV Diagnostic Test (Pha) 1 strip Q6HR 05/13/25 00:00 05/29/25 06:05 1 STRIP Insulin Human Regular FOLLOW SLIDING SCALE Q6HR SC 05/13/25 00:00 05/29/25 00:56 2 UNITS Dextrose 50 ml UD IV 05/13/25 00:00 Linezolid 300 ml @ 150 mls/hr Q12HR IV 05/15/25 22:00 UNV Albuterol 2.5 mg Q6HR NEB 05/18/25 14:00 05/29/25 07:30 2.5 MG Calcium Acetate 667 mg TIDWMEALS GT 05/25/25 18:00 05/29/25 10:27 667 MG Epoetin Venu-epbx 6,000 unit TUTHSA SC 05/25/25 16:15 05/29/25 10:31 6,000 UNIT Enteral Nutritional Formula 1,000 ml 25ML/HR GT 05/26/25 12:45 05/27/25 17:52 1,000 ML Lactulose 30 ml Q6HR PEG 05/28/25 12:00 05/28/25 12:15 30 ML Lactated Ringer's 1,000 ml @ 100 mls/hr Q10H IV 05/29/25 09:00 05/29/25 10:28 100 MLS/HR objective Gen: Cachectic lungs: Occasional coarse breath sounds cvs: no rub ext: + trace edema laboratory and microbiology Laboratory Tests 05/29/25 05:19 05/28/25 05:03 Test 05/29/25 05:19 Range/Units Serum Glucose 82 74-106 mg/dL Assessment/Plan Problem List/Assessment/Plan Acute kidney injury likely acute tubular necrosis in the setting of severe sepsis Severe sepsis/pneumonia Metabolic acidosis Encephalopathy Chronic Smith for greater than one year Failure to thrive anemia - supplemental potassium as needed - we will continue with maintenance IV fluids - currently without urgent indication for dialysis. Dietary Evaluation Review Comments: 1. TPN per pharmacy to meet Pt's daily needs at 48g Protein 1000kcal, when Tube feeding is not feasible. 2. Nepro@25 ml/hr, providing 49g proteinm 1062 [id number] free water, once NG feeding becomes feasible, Start at 10ml/hr and increase 10ml Q6hr till reach the goal rate. 3. Renal standard CCHO-60 once pt can tolerate PO feedings Expected Outcomes/Goals: gradual wt gain Plan discussed with: Other CC Plasma Assessment Blood Product Administration S: [id number] ZORAIDA BARDALES MD May 29, 2025 10:48
--- NOTE | 2025-05-29 12:53 | DVHDS2 ---
Discharge Summary Date of Admission May 09, 2025 at 23:01 Date of Discharge: May 17, 2025 Admitting Diagnosis Sepsis Labs/Diagnostic Data: Laboratory Results Test 05/29/25 11:15 05/29/25 05:19 05/28/25 05:03 05/27/25 05:09 POC Glucose 109 mg/dl (70-106) Sodium Level 140 mmol/L (136-145) Potassium Level 3.1 mmol/L (3.5-5.1) Chloride Level 109 mmol/L (98-107) Carbon Dioxide Level 17 mmol/L (20-31) Anion Gap 14 (5-15) Blood Urea Nitrogen 126 mg/dL (9-23) Creatinine 3.21 mg/dL (0.700-1.30) Glomerular Filtration Rate Calc 23 mL/min (>90) BUN/Creatinine Ratio 39.3 (10.0-20.0) Serum Glucose 82 mg/dL (74-106) Calcium Level 8.4 mg/dL (8.7-10.4) Total Bilirubin < 0.2 mg/dL (0.2-1.0) Direct Bilirubin < 0.1 mg/dL (<0.3) Aspartate Amino Transferase (AST) 88 U/L (13-40) Alanine Aminotransferase (ALT) 84 U/L (7-40) Alkaline Phosphatase 977 U/L (46-116) Total Protein 4.9 g/dL (5.7-8.2) Albumin 2.3 g/dL (3.2-4.8) White Blood Count 9.9 10^3/uL (4.4-10.8) Red Blood Count 2.60 10^6/uL (4.5-5.90) Hemoglobin 7.7 g/dL (13.5-17.5) Hematocrit 22.7 % (41.0-53.0) Mean Corpuscular Volume 87.4 fL (80.0-100.0) Mean Corpuscular Hemoglobin 29.7 pg (28.0-32.0) Mean Corpuscular Hemoglobin Concent 33.9 g/dL (32.0-36.0) Red Cell Distribution Width 16.2 % (11.8-14.3) Platelet Count 147 10^3/uL (140-450) Mean Platelet Volume 11.9 fL (6.9-10.8) Neutrophils (%) (Auto) 77.2 % (37.0-80.0) Lymphocytes (%) (Auto) 10.3 % (10.0-50.0) Monocytes (%) (Auto) 12.0 % (0.0-12.0) Eosinophils (%) (Auto) 0.1 % (0.0-7.0) Basophils (%) (Auto) 0.4 % (0.0-2.0) Neutrophils # (Auto) 7.7 10 ^3/uL (1.6-8.6) Lymphocytes # (Auto) 1.0 10 ^3/uL (0.4-5.4) Monocytes # (Auto) 1.2 10 ^3/uL (0-1.3) Eosinophils # (Auto) 0 10 ^3/uL (0-0.8) Basophils # (Auto) 0 10 ^3/uL (0-0.2) Nucleated Red Blood Cells 0.1 % Random Vancomycin Level 20.4 ug/mL (5-10) Estimated GFR () 28 mL/min Estimated GFR (Non- 23 mL/min Phosphorus Level 5.0 mg/dL (2.4-5.1) Magnesium Level 1.8 mg/dL (1.6-2.6) Test 05/25/25 05:36 05/24/25 05:03 05/18/25 13:06 05/12/25 04:08 Iron Level 113 ug/dL (65-175) Total Iron Binding Capacity 151 ug/dL (250-425) Percent Iron Saturation 74.8 % (20-55) Ferritin 1130.0 ng/mL (22-322) Triglycerides Level 54 mg/dL (< 150) Differential Total Cells Counted 100.0 (100) Neutrophils % (Manual) 99 (37.0-80.0) Band Neutrophils % (Manual) 0 Lymphocytes % (Manual) 1 (10.0-50.0) Monocytes % (Manual) 0 (0-12) Eosinophils % (Manual) 0 (0-7) Basophils % (Manual) 0 (0.0-2.0) Metamyelocytes % (manual) 0 Myelocytes % (Manual) 0 Promyelocytes % (Manual) 0 Blast Cells % (Manual) 0 Reactive Lymphocytes 0 Platelet Estimate Adequate Prothrombin Time 11.9 sec (9.3-11.8) Prothrombin Time INR 1.14 (0.9-1.15) Activated Partial Thromboplast Time 39.8 SEC (24.5-34.5) B-Type Natriuretic Peptide 280.34 pg/mL (0-100) Vitamin D 25-Hydroxy 17.1 ng/mL (30.0-100) Parathyroid Hormone (Intact) 201.1 pg/mL (18.4-80.1) Large Platelets Few Test 05/11/25 03:45 05/10/25 18:12 05/10/25 15:39 05/10/25 08:58 Poikilocytosis (manual) Slight [place] Cells Few Schistocytes Few Blood Gas Specimen Type Arterial Blood Gas Sample Site Left brachial Blood Gas Patient Temperature 37.0 Arterial Blood Date Drawn [id number] Arterial Blood pH 7.390 (7.350-7.450) Arterial Blood Partial Pressure CO2 22.6 mmHg (35.0-48.0) Arterial Blood Partial Pressure O2 74.0 mmHg (83.0-108.0) Arterial Blood HCO3 13.4 mmol/L (21.0-28.0) Arterial Blood Oxygen Saturation 93.6 % (94.0-98.0) Arterial Blood Base Excess -9.9 mmol/L (-2.0-3.0) Arterial Blood Oxyhemoglobin 92.5 % (94.0-98.0) Arterial Blood Carboxyhemoglobin 0.5 % (0.5-1.5) Arterial Blood Methemoglobin 0.7 % (0.0-1.5) Alberto Test N/a Blood Gas Total Hemoglobin 11.00 g/dL (13.5-17.5) Blood Gas Modality Room air FiO2 % 21.0 Lactic Acid Level 0.7 mmol/L (0.4-2.0) Blood Gas Critical Value Read Back Yes Blood Gas Notified Whom aren Claros Blood Gas Notified Time [id number] Blood Gas Notified By Key Cutter [facility] Test 05/10/25 04:45 05/10/25 02:49 05/09/25 23:49 05/09/25 22:33 Urine Color Colorless (Yellow) Urine Clarity Ex.turbid (Clear) Urine pH 6.0 (5.0-9.0) Urine Specific [place] 1.012 (1.001-1.035) Urine Protein 2+ (Negative) Urine Ketones Negative (Negative) Urine Blood 3+ /uL (Negative) Urine Nitrite Negative (Negative) Urine Bilirubin Negative (Negative) Urine Urobilinogen Normal mg/dL (Negative) Urine Leukocyte Esterase 3+ /uL (Negative) Urine RBC 854 /hpf (0 - 3) Urine WBC Clumps Present /hpf (None Seen) Urine Microscopic WBC 665 /HPF (0-3) Urine Squamous Epithelial Cells None seen /hpf (<5) Urine Bacteria None seen /hpf (None Seen) Urine Creatinine 15.58 mg/dL (30.0-125.0) Urine Protein/Creatinine Ratio 28.82 Urine Sodium 108 mmol/L (40-220) Urine Glucose 1+ mg/dL (Normal) Urine Total Protein 449.0 mg/dL (1-14) Influenza Type A Antigen Negative (Negative) Influenza Type B Antigen Negative (Negative) SARS-CoV-2 Antigen (Rapid) Negative (NEGATIVE) Venous Blood pH 7.003 (7.320-7.430) Venous Blood pCO2 at Patient Temp 16.6 mmHg (38.0-54.0) Venous Blood pO2 at Patient Temp 49.3 mmHg (23.0-48.0) Venous Blood HCO3 4.0 mmol/L (22.0-29.0) Venous Bld O2 Saturation (Measured) 66.0 % (60.0-85.0) Venous Blood Base Excess -24.9 mmol/L (-2.0-3.0) Venous Blood Total Hemoglobin 5.5 g/dL (13.5-17.5) Venous Blood Oxyhemoglobin 65.0 % (0.0-79.0) Venous Blood Carboxyhemoglobin 0.4 % (0.5-1.5) Venous Blood Methemoglobin 1.1 % (0.0-1.5) Blood Gas Spontaneous Rate 26 Troponin I High Sensitivity 92 ng/L (</=54) Test 05/09/25 19:30 Beta-Hydroxybutyric Acid 0.515 mmol/L (< 0.4) Other Laboratory Tests 05/29/25 05:19 05/28/25 05:03 Brief Hx & Hospital Course: Patient was admitted on 05/09 four sepsis due to acute cystitis and pneumonia. Patient received full course of and IV antibiotics during hospital stay. Patient was seen by infectious disease and was given antibiotics as recommended by Infectious Disease. Patient had acute kidney injury superimposed on CKD. Nephrology discuss possible dialysis with mother however mother refused. Renal function did improve. Patient is still catatonic and not eating patient had G- tube placed by Gastroenterology. Patient was started on tube feedings and was able to tolerate tube feedings, patient did have bowel movement prior to discharge. Patient was placed back on hospice per mother's request. Patient also had non-STEMI type 2 likely from demand ischemia. Patient also had acute hypoxic respiratory failure likely due to pneumonia. Patient is follow up with hospice physician within one week of discharge. Mother was in agreement with discharge plan. Lindsay catheter was replaced prior to discharge. Condition at Discharge: Fair Final Diagnosis/Problems List 1. Sepsis from acute cystitis with hematuria 2. Acute on chronic anemia 3. LISANDRO with CKD 3b 4. Bed bound 5. CVA with residual deficits 6. NSTEMI II, demand ischemia 7. MRSA w/ Nares Medications, Monitoring 8. Hyperkalemia r/t LISANDRO 9. Hypoglycemia 10. Pneumonia likely Gram-negative or Gram-positive 11. Acute hypoxic respiratory failure likely related to pneumonia Discharge Disposition: Hospice - Home Discharge Instruct/Medications Diet: Regular, Consistent carbohydrate Activity: No Restrictions, As Tolerated Follow Up/Referral: hospice Scheduled Amlodipine Besylate (Amlodipine Besylate), 1 TAB PO DAILY, (Reported) Atorvastatin Calcium (Atorvastatin Calcium), 20 MG PO HS Furosemide (Furosemide), 40 MG PO DAILY Glipizide (Glipizide Er), 1 TAB PO DAILY, (Reported) Lisinopril (Lisinopril), 1 TAB PO DAILY, (Reported) Sodium Bicarbonate (Sodium Bicarbonate), 650 MG PO TID Tamsulosin Hcl (Tamsulosin Hcl), 1 CAP PO DAILY, (Reported) Discharge Statement: "Patient was advised to return to the ER or call 911 if any headaches, dizziness, shortness of breath, chest pain, abdominal pain, bleeding, fevers, or worsening of medical condition. Patient was counseled about treatment plan, medications, possible side effects, patientverbalized understanding. All questions were answered to the best of my ability. This discharge took greater then 30 minutes in planning, reviewing documentation, counseling the patient, and discussing with other team members." ASSESSMENT ASSESSMENT Assessment 1. Sepsis from acute cystitis with hematuria 2. Acute on chronic anemia 3. LISANDRO with CKD 3b 4. Bed bound 5. CVA with residual deficits 6. NSTEMI II, demand ischemia 7. MRSA w/ Nares Medications, Monitoring 8. Hyperkalemia r/t LISANDRO 9. 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
--- NOTE | 2025-05-29 22:23 | DVHPN2 ---
Progress Note - Dictate Date Seen: May 29, 2025 Medical Necessity Reason Pt with a Central, PICC or Fol: Yes The following are medically ne: Smith Catheter Reason for smith catheter: Strict I&O Subjective Patient seen and examined at bedside. Breathing comfortably on room air. Overnight events reviewed. vital signs Vital Sign Date Time Temp Pulse Resp B/P (MAP) Pulse Ox O2 Delivery O2 Flow Rate FiO2 05/29/25 13:00 98.5 84 18 118/79 (92) 97 98.5 05/29/25 11:46 Room Air 0.0 05/29/25 11:46 21 medications Current Medications Medications Dose Ordered Sig/Wai Route Start Time Stop Time Status Last Admin Dose Admin Vancomycin HCl 0 ml @ 0 mls/hr UD IV 05/09/25 23:15 Cancel Ceftriaxone Sodium 50 ml @ 100 mls/hr DAILY@09 IV 05/13/25 09:00 UNV Linezolid 300 ml @ 150 mls/hr Q12HR IV 05/15/25 22:00 UNV objective Gen.: Patient lying in bed in no apparent distress. Breathing on room air. Head: Normocephalic, atraumatic. Eyes: EOMI/PERRLA. Ears: Normal hearing. Normal anatomy. Neck/trachea: Trachea midline, supple. Nose: Normal external anatomy. Mouth: Moist mucous membranes. Chest: Decreased air entry bilaterally. No wheezing or rhonchi. Cardiovascular: Positive S1, positive S2. Regular rate and rhythm. Abdomen: Positive bowel sounds in all 4 quadrants. Soft, non-tender, non- distended. : Deferred. Rectal: Deferred. Skin: Warm, dry. Intact. Extremities: 2+ radial pulses bilaterally. No lower extremity edema. Neuro: Awake, alert, oriented x3. No gross motor or sensory deficits. Cranial nerves II through XII intact. Gait not assessed. laboratory and microbiology Laboratory Tests 05/29/25 05:19 05/28/25 05:03 Test 05/29/25 05:19 Range/Units Serum Glucose 82 74-106 mg/dL Assessment/Plan Impression: Acute hypoxemic respiratory failure Altered mental status Pneumonia Sepsis Urinary tract infection Events: Remains on room air Supplemental oxygen PRN Status post PEG. Clinimix per pharmacy for nutritional support Continue bronchodilators q.6 hours Continue antibiotics Monitor renal function - elevated BUN and creatinine Monitor electrolytes. Supplement as necessary. Monitor ins and outs. Potassium is low, supplement Goal K of 4.0, mag of 2.0 Maintain euvolemia. Calcium at goal when corrected for hypoalbuminemia IV fluids with LR at 100 ml/hr. Monitor hemoglobin - currently 7.7 g/dl Transfuse if less than 7.0 g/dL. Protonix for GI ppx Wound care Disposition per hospitalist. Chest/abd x-ray revealed nonspecific bowel gas pattern; no e/o pneumoperitoneum GI recs appreciated Labs and imaging reviewed Rest of plan as noted below. Plan: Supplemental oxygen as needed Titrate to maintain sats above 92% Incentive spirometry Bronchodilators Antibiotics F/u cultures Accu-Cheks, ISS PRN. S/p PEG Clinimix for nutritional support Monitor renal function Diurese to euvolemia Monitor electrolytes Supplement as needed Follow up Nephrology recs Monitor blood count Transfuse blood products as needed DVT prophylaxis Prognosis: Guarded given patient's multiple co-morbidities. Rest of plan per hospitalist and other consultants. Thank you, ANITHA Vergara, for allowing me to participate in this patient's care. Further recommendations will depend on the patient's clinical course. Please do not hesitate to contact me if you have any questions or concerns. This medical document was created using an electronic medical record system with [employer] dictation system. Although these documentations are being carefully reviewed, there may still be some phonetic and typographical changes. The errors are purely typographical, due to imperfection on the software program, and do not reflect any compromise in the patient's medical care. Dietary Evaluation Review Comments: 1. TPN per pharmacy to meet Pt's daily needs at 48g Protein 1000kcal, when Tube feeding is not feasible. 2. Nepro@25 ml/hr, providing 49g proteinm 1062 [id number] free water, once NG feeding becomes feasible, Start at 10ml/hr and increase 10ml Q6hr till reach the goal rate. 3. Renal standard CCHO-60 once pt can tolerate PO feedings Expected Outcomes/Goals: gradual wt gain Plan discussed with: Patient, Other (CARMEN Tapia) CC Plasma Assessment Blood Product Administration S: [id number] EDGARDO CULLEN MD May 29, 2025 22:23
== END 2025-05-29 15:35 | disposition hospice, home (50) | DRG 720 ==
LOC: ER 19:08 → EDBD 19:08 → OVERFLOW 23:01 → CENTRAL 05-13 04:50 → TELE-CENTR 05-13 06:01
PROVIDERS: ADMIT Nurse Practitioner; ATTEND Nurse Practitioner
PROC: 30233N1 Transfusion of Nonautologous Red Blood Cells into Peripheral Vein, Percutaneous Approach (ICD-10-PCS; principal; 2025-05-10)
PROC: 05H933Z Insertion of Infusion Device into Right Brachial Vein, Percutaneous Approach (ICD-10-PCS; 2025-05-10)
PROC: B54MZZA Ultrasonography of Right Upper Extremity Veins, Guidance (ICD-10-PCS; 2025-05-10)
PROC: 0DH63UZ Insertion of Feeding Device into Stomach, Percutaneous Approach (ICD-10-PCS; 2025-05-24)
PROC: 0DH63UZ Insertion of Feeding Device into Stomach, Percutaneous Approach (ICD-10-PCS; 2025-05-24)
DX: A41.50 Gram-negative sepsis, unspecified (principal); N17.0 Acute kidney failure with tubular necrosis; J96.01 Acute respiratory failure with hypoxia; G93.41 Metabolic encephalopathy; E10.10 Type 1 diabetes mellitus with ketoacidosis without coma; J15.69 Pneumonia due to other Gram-negative bacteria; I13.0 Hypertensive heart and chronic kidney disease with heart failure and stage 1 through stage 4 chronic kidney disease, or unspecified chronic kidney disease; I69.354 Hemiplegia and hemiparesis following cerebral infarction affecting left non-dominant side; I50.32 Chronic diastolic (congestive) heart failure; R65.20 Severe sepsis without septic shock; I21.A1 Myocardial infarction type 2; Z20.822 Contact with and (suspected) exposure to COVID-19; E87.0 Hyperosmolality and hypernatremia; E10.649 Type 1 diabetes mellitus with hypoglycemia without coma; J15.9 Unspecified bacterial pneumonia; E88.09 Other disorders of plasma-protein metabolism, not elsewhere classified; E83.51 Hypocalcemia; R62.7 Adult failure to thrive; E83.39 Other disorders of phosphorus metabolism; E10.22 Type 1 diabetes mellitus with diabetic chronic kidney disease; I07.1 Rheumatic tricuspid insufficiency; N18.32 Chronic kidney disease, stage 3b; D50.9 Iron deficiency anemia, unspecified; E66.01 Morbid (severe) obesity due to excess calories; I69.320 Aphasia following cerebral infarction; G80.9 Cerebral palsy, unspecified; N30.01 Acute cystitis with hematuria; Z68.1 Body mass index [BMI] 19.9 or less, adult; E83.42 Hypomagnesemia; E87.5 Hyperkalemia; E87.6 Hypokalemia; E86.0 Dehydration; B37.49 Other urogenital candidiasis; E78.5 Hyperlipidemia, unspecified; L98.498 Non-pressure chronic ulcer of skin of other sites with other specified severity; Z74.01 Bed confinement status; Z83.3 Family history of diabetes mellitus; Z82.3 Family history of stroke; Z79.899 Other long term (current) drug therapy; Z79.84 Long term (current) use of oral hypoglycemic drugs; Z51.5 Encounter for palliative care
CPT/HCPCS: 36415; 36600; 70450; 71045; 74018; 76775; 80048; 80053; 80069; 80076; 80202; 81001; 82010; 82306; 82565; 82570; 82728; 82805; 82962; 83540; 83550; 83605; 83735; 83880; 83970; 84100; 84156; 84300; 84478; 84484; 85007; 85025; 85027; 85610; 85730; 86850; 86900; 86901; 86922; 87040; 87081; 87086; 87088; 87186; 87426; 87804; 92610; 93005; 93306; 94640; 94668; 96365; 96372; 99291; G0378; J0610; J1450; J1815; J2185; J2470; J2543; J3480

== ENCOUNTER 2025-06-17 02:18 | Inpatient (IN) | payer OTHER ==
[~2025-06-17] VITALS: Ht 152.4 cm; Wt 56.5 kg
[~2025-06-17 02:18] MED LIST changes: -METF-370 PO
--- NOTE | 2025-06-17 02:32 | ED.PDOC ---
History of Present Illness HPI Comments 44 year old male presents to the ED with a chief complaint of g-tube dislodgement onset today. Per EMS, family went to check on patient, noticed leakage around g-tube area, saw tube was dislodged. Patient was discharged from [facility] on 05/29/25, with diagnosis of acute cystitis and Pneumonia, had g-tube placed prior to being discharged. Patient is a poor historian. PMHx CVA, CKF, UTI, DM. No other associated symptoms, modifiers, recent injuries or sick contacts present at this time. Chief Complaint: Tube Replacement Time Seen by MD: 02:25 Primary Care Provider: EBONIE Rodriguez Notes: Medications, Allergies Allergies: Coded Allergies: NO KNOWN ALLERGIES (Unverified , 07/19/23) Home Meds Active Scripts Sodium Bicarbonate (Sodium Bicarbonate) 650 Mg Tab, 650 MG PO TID for 30 Days, #90 TAB Prov:[employer] 01/11/25 Furosemide (Furosemide) 40 Mg Tab, 40 MG PO DAILY for 30 Days, #30 TAB Prov:[employer]BER 01/11/25 Atorvastatin Calcium (ATORVASTATIN CALCIUM) 20 Mg Tab, 20 MG PO HS for 30 Days, #30 TAB Prov:[employer] MEMBER 01/11/25 Reported Medications Tamsulosin Hcl (Tamsulosin Hcl) 0.4 Mg Cap, 1 CAP PO DAILY for 30 Days, #30 12/31/24 Lisinopril (Lisinopril) 40 Mg Tab, 1 TAB PO DAILY for 30 Days, #30 12/31/24 Amlodipine Besylate (Amlodipine Besylate) 10 Mg Tab, 1 TAB PO DAILY for 30 Days, #30 12/31/24 Glipizide (Glipizide Er) 5 Mg Tab, 1 TAB PO DAILY for 30 Days, #30 TAKE 1 TABLET BY MOUTH ONCE DAILY WITH BREAKFAST. 12/31/24 Information Source: Emergency Med Personnel Mode of Arrival: EMS Severity: Moderate Timing: Hours Duration: Since onset Prehospital treatment: None Past Medical History PAST MEDICAL HISTORY: CKF, CVA, DM, UTI'S Surgical History: Denies all surgeries Family History Family History: Reviewed,noncontributory to illness Social History Smoker: Non-Smoker Alcohol: Denies ETOH Use Drugs: Denies Drug Use Lives In: Home, Assisted Care Constitutional: reports: others (dislodged g-tube); denies: chills, diaphoresis, fatigue, fever, malaise, sweats, weakness EENTM: denies: blurred vision, double vision, ear bleeding, ear discharge, ear drainage, ear pain, ear ringing, eye pain, eye redness, hearing loss, mouth pain, mouth swelling, nasal discharge, nose bleeding, nose congestion, nose pain, photophobia, tearing, throat pain, throat swelling, voice changes, others Respiratory: denies: cough, hemoptysis, orthopnea, SOB at rest, shortness of breath, SOB with excertion, stridor, wheezing, others Cardiovascular: denies: chest pain, dizzy spells, diaphoresis, Dyspnea on exertion, edema, irregular heart beat, left arm pain, lightheadedness, palpitations, PND, syncope, others Gastrointestinal: denies: abdomen distended, abdominal pain, blood streaked bowels, constipated, diarrhea, dysphagia, difficulty swallowing, hematemesis, melena, nausea, poor appetite, poor fluid intake, rectal bleeding, rectal pain, vomiting, others Genitourinary: denies: burning, dysuria, flank pain, frequency, hematuria, incontinence, penile discharge, penile sore, pain, testicle pain, testicle swelling, urgency, others Neurological: denies: dizziness, fainting, headache, left sided numbness, left sided weakness, numbness, paresthesia, pre-existing deficit, right sided numbness, right sided weakness, seizure, speech problems, tingling, tremors, weakness, others Musculoskeletal: denies: back pain, gout, joint pain, joint swelling, muscle pain, muscle stiffness, neck pain, others Integumetry: denies: bruises, change in color, change in hair/nails, dryness, laceration, lesions, lumps, rash, wounds, others Allergic/Immunocompromised: denies: Difficulty Healing, Frequent Infections, Hives, Itching, others Hematologic/Lymphatic: denies: anemia, blood clots, easy bleeding, easy bruising, swollen glands, others Endocrine: denies: excessive hunger, excessive sweating, excessive thirst, excessive urination, flushing, intolerance to cold, intolerance to heat, unexplained weight gain, unexplained weight loss, others Psychiatric: denies: anxiety, bipolar disorder, depression, hopeless, panic disorder, schizophrenia, sleepless, suicidal, others All Other Systems: Reviewed and Negative Physical Exam General Appearance: Other (chronically ill appearing) HEENT: Normal ENT Inspection, Pharynx Normal, TMs Normal Neck: Full Range of Motion, Non-Tender, Normal, Normal Inspection Respiratory: Chest Non-Tender, Lungs Clear, No Accessory Muscle Use, No Respiratory Distress, Normal Breath Sounds Cardiovascular: No Edema, No JVD, No Murmur, No Gallop, Normal Peripheral Pulses, Regular Rate/Rhythm Breast Exam: Deferred Gastrointestinal: No Organomegaly, Non Tender, No Pulsatile Mass, Normal Bowel Sounds, Soft Genitalia: Deferred Pelvic: Deferred Rectal: Deferred Extremities: No calf tenderness, Normal capillary refill, Normal inspection, Normal range of motion, Non-tender, No pedal edema Musculoskeletal : Apperance: Normal 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 Was a procedure done?: No Differential Dx Considerations may include: G-tube removal X-Ray, Labs, Meds, VS Vital Signs Date Time Temp Pulse Resp B/P (MAP) Pulse Ox O2 Delivery O2 Flow Rate FiO2 06/17/25 02:27 98.8 95 18 170/88 (115) 100 98.8 Lab Test 06/17/25 03:18 Range/Units White Blood Count Pending Red Blood Count Pending Hemoglobin Pending Hematocrit Pending Mean Corpuscular Volume Pending Mean Corpuscular Hemoglobin Pending Mean Corpuscular Hemoglobin Concent Pending Red Cell Distribution Width Pending Platelet Count Pending Mean Platelet Volume Pending Neutrophils (%) (Auto) Pending Lymphocytes (%) (Auto) Pending Monocytes (%) (Auto) Pending Basophils (%) (Auto) Pending Neutrophils # (Auto) Pending Lymphocytes # (Auto) Pending Monocytes # (Auto) Pending Sodium Level Pending Potassium Level Pending Chloride Level Pending Carbon Dioxide Level Pending Anion Gap Pending Blood Urea Nitrogen Pending Creatinine Pending Glomerular Filtration Rate Calc Pending BUN/Creatinine Ratio Pending Serum Glucose Pending Calcium Level Pending [facility] [id number] [place] [id number] Ph: [phone] DIAGNOSTIC IMAGING Diagnostic Imaging Report : [id number] Signed PATIENT: SARAH BETH VARGAS ACCT: [id number] UNIT: [id number] : 1980 LOC: ER ROOM / BED: / AGE / SEX: 44 / M ADM STATUS: REG ER SERVICE 1 ORDERING PHYSICIAN: KOREY OSPINA MD PROCEDURE(s): CXRP - CHEST PORTABLE REASON: g tube pulled out ORDER NUMBER(s): [id number], ACCESSION NUMBER(s): [id number] CHEST RADIOGRAPH Indication: g tube pulled out Technique: Single frontal view of the chest was obtained COMPARISON: XY CHEST XRAY 1 VIEW on DOS: 05/23/25, XY CHEST PORTABLE on DOS: 05/21/25, XY CHEST PORTABLE on DOS: 05/19/25, XY CHEST XRAY 1 VIEW on DOS: 05/16/25, XY CHEST PORTABLE on DOS: 05/14/25 FINDINGS: Lines and Tubes: None Lungs: Diffuse increased prominence of the pulmonary vasculature and interstitium. Partially loculated left pleural effusion. No pneumothorax. Cardiomediastinal contours: Cardiomegaly. Bones: Unremarkable IMPRESSION: 1. Diffuse increased prominence of the pulmonary vasculature and interstitium and partially loculated left pleural effusion. 2. Cardiomegaly. ATED BY: RAY WEBB MD DICTATED DATE/TIME: 06/17/25312 SIGNED BY: RAY WEBB MD SIGNED DATE/TIME: 06/17/25312 CC: Time of 1ST Reevaluation: 02:55 Reevaluation 1ST: Unchanged Patient Education/Counseling: Diagnosis, Treatment, Prognosis Family Education/Counseling: No Family Present SEPSIS Sepsis Screen Physician Orders Basic Metabolic Panel (06/17/25 02:22) Complete Blood Count (06/17/25 02:22) Chest Portable (06/17/25 02:22) Vital Signs Date Time Temp Pulse Resp B/P (MAP) Pulse Ox O2 Delivery O2 Flow Rate FiO2 06/17/25 02:27 98.8 95 18 170/88 (115) 100 98.8 Laboratory Tests Test 06/17/25 03:18 White Blood Count Pending Departure 1 Departure Time of Disposition: 03:35 (Patient with a recent G-tube placement that came out tonight. We will admit patient for further workup and expert consultation) Impression: Primary Impression: Encounter for gastrojejunal tube placement Disposition: ADMITTED INPATIENT Admit to: Med Surg Condition: Serious Critical Care Note Critical Care Time?: No Stability Stability form required: No I personally scribed for KOREY OSPINA MD ([email or web address]) on 06/17/25 at 02:32. Electronically submitted by Dana Syed ([email or web address]). I personally scribed for KOREY OSPINA MD ([email or web address]) on 06/17/25 at 03:17. Electronically submitted by Dana Syed ([email or web address]). KOREY OSPINA MD Jun 17, 2025 02:32
--- NOTE | 2025-06-17 03:16 | DVH ---
CHEST RADIOGRAPH Indication: g tube pulled out Technique: Single frontal view of the chest was obtained COMPARISON: XY CHEST XRAY 1 VIEW on DOS: 05/23/25, XY CHEST PORTABLE on DOS: 05/21/25, XY CHEST PORTABL E on DOS: 05/19/25, XY CHEST XRAY 1 VIEW on DOS: 05/16/25, XY CHEST PORTABLE on DOS: 05/14/25 FINDINGS: Lines and Tubes: None Lungs: Diffuse increased prominence of the pulmonary vasculature and interstitium. Partially loculate d left pleural effusion. No pneumothorax. Cardiomediastinal contours: Cardiomegaly. Bones: Unremarkable IMPRESSION: 1. Diffuse increased prominence of the pulmonary vasculature and interstitium and partially loculated left pleural effusion. 2. Cardiomegaly.
[2025-06-17 03:40] VITALS: PULSE 94; RESP 10; O2SAT 98
[2025-06-17 03:58] LABS: Hematocrit 25.3 % (41.0-53.0); Hemoglobin 7.5 g/dL (13.5-17.5); Mean Corpuscular Hemoglobin 27.6 pg (28.0-32.0); Mean Corpuscular Volume 93.6 fL (80.0-100.0); Nucleated Red Blood Cells % 0.2 %
[2025-06-17 04:09] LABS: Potassium 4.7 mmol/L (3.5-5.1)
[2025-06-17 04:10] LABS: Anion Gap 15 (5-15); Carbon Dioxide 18 mmol/L (20-31); Chloride 113 mmol/L (98-107); Sodium 146 mmol/L (136-145)
[2025-06-17 04:23] LABS: BUN/Creatinine Ratio 35.5 (10.0-20.0)
[2025-06-17 04:27] LABS: Calcium 7.4 mg/dL (8.7-10.4)
[2025-06-17 04:29] LABS: Blood Urea Nitrogen 164 mg/dL (9-23); Glucose 419 mg/dL (74-106)
[2025-06-17] MEDS ORDERED: DEXTROSE (50%) 50ML SYRG IV PRN ×2 (07:45→12:45)
[2025-06-17] MEDS ORDERED: NITROGLYCERIN 0.4 MG SL TAB SL PRN (07:45)
[2025-06-17] MEDS ORDERED: ACETAMINOPHEN 325 MG TAB PO PRN (07:45)
[2025-06-17] MEDS ORDERED: MORPHINE SULFATE INJ 2 MG/ml SYRG IV PRN ×2 (07:45)
[2025-06-17] MEDS: ACCU-CHEK COMFORT CURVE STRIP VI SCH ×2 (09:00→13:44)
[2025-06-17] MEDS: InsuLIN REG 1unit/0.01ml Soln (100units/ml) SC SCH ×2 (09:00→13:43)
[2025-06-17] MEDS: hydrALAZINE HCL 20 MG/ML VL IV SCH (09:02)
[2025-06-17] MEDS: cefTRIAXone 1GM/50ML D5W 50 ML IV SCH (09:05)
[2025-06-17] MEDS: SODIUM CHLORIDE 0.9% 1,000 ML IV SCH (09:05)
[2025-06-17] MEDS ORDERED: ENOXAPARIN SOD 40 MG/0.4 ML SYRINGE SC SCH (10:00)
[2025-06-17] MEDS ORDERED: FUROSEMIDE 40 MG TAB PO SCH (10:00)
[2025-06-17 10:08] VITALS: PULSE 91; RESP 14; O2SAT 99
[2025-06-17] MEDS: TAMSULOSIN HYDROCHLORIDE 0.4 MG CAP PO SCH (10:26)
[2025-06-17] MEDS: CARVEDILOL 3.125 MG TAB PO SCH (10:26)
[2025-06-17 11:52] LABS: Urine Budding Yeast LOADED /hpf (None Seen); Urine Protein, UAD 2+ (Negative); Urine WBC Clumps PRESENT /hpf (None Seen)
[2025-06-17 12:09] VITALS: BP 137/86; PULSE 84; RESP 19; TEMP 98.4; O2SAT 100
--- NOTE | 2025-06-17 14:57 | DVHHP2 ---
History of Present Illness History of Present Illness 44-year-old male with a history of CVA, CKD, diabetes, and multiple UTIs with chronic Lindsay use presents to emergency room for dislodged G-tube. Patient was recently discharged on 05/29/2025 after be having G-tube placed. Unable to obtain review of systems due to patient being nonverbal. Review of Systems Review of Systems Unable to obtain Allergies: Coded Allergies: NO KNOWN ALLERGIES (Unverified , 07/19/23) Medications Current Medications Medications Dose Ordered Sig/Wai Route Start Time Stop Time Status Last Admin Dose Admin Enoxaparin Sodium 40 mg DAILY SC 06/17/25 10:00 UNV Acetaminophen 650 mg Q6HP PRN PO 06/17/25 07:45 Morphine Sulfate 2 mg Q4HPRN PRN IV 06/17/25 07:45 Nitroglycerin 0.4 mg Q5MINP PRN SL 06/17/25 07:45 Morphine Sulfate 2 mg Q30M PRN IV 06/17/25 07:45 Atorvastatin Calcium 20 mg HS PO 06/17/25 22:00 Furosemide 40 mg DAILY PO 06/17/25 10:00 Cancel Tamsulosin HCl 0.4 mg DAILY PO 06/17/25 10:00 06/17/25 10:26 0.4 MG Ceftriaxone Sodium 50 ml @ 100 mls/hr DAILY@09 IV 06/17/25 09:00 06/17/25 09:05 100 MLS/HR Carvedilol 6.25 mg Q12HR PO 06/17/25 10:00 06/17/25 10:26 6.25 MG Hydralazine HCl 10 mg Q6HR IV 06/17/25 12:00 06/17/25 09:02 10 MG Nifedipine 30 mg DAILY PO 06/17/25 10:00 06/17/25 10:26 30 MG Diagnostic Test (Pha) 1 strip ACHS 06/17/25 12:45 06/17/25 13:44 1 STRIP Insulin Human Regular ACHS SC 06/17/25 12:45 Dextrose 50 ml UD PRN IV 06/17/25 12:45 Dextrose/Sodium Chloride 1,000 ml @ 75 mls/hr [id number] IV 06/17/25 14:45 Exam Vital Signs Vital Signs Date Time Temp Pulse Resp B/P (MAP) Pulse Ox O2 Delivery O2 Flow Rate FiO2 7/24/25 12:09 98.4 84 19 137/86 (103) 100 98.4 06/17/25 10:08 Room Air* 0 21 General Appearance: Other (At baseline) Respiratory: Clear to auscultation, Normal air movement Cardiovascular: Regular rate, Normal S1, Normal S2, No murmurs Abdominal: Normal bowel sounds, Soft, No tenderness, No hepatospenomegaly Labs/Xrays Labs Test 06/17/25 13:38 06/17/25 10:58 06/17/25 03:29 06/17/25 03:18 Range/Units POC Glucose 202 H 70-106 mg/dl Urine Color Dark yellow Yellow Urine Clarity Ex.turbid Clear Urine pH 6.5 5.0-9.0 Urine Specific [place] 1.016 1.001-1.035 Urine Protein 2+ H Negative Urine Ketones Negative Negative Urine Blood 3+ H Negative /uL Urine Nitrite Negative Negative Urine Bilirubin Negative Negative Urine Urobilinogen Normal Negative mg/dL Urine Leukocyte Esterase 3+ Negative /uL Urine RBC 22 0 - 3 /hpf Urine WBC Clumps Present None Seen /hpf Urine Microscopic WBC 1038 H 0-3 /HPF Urine Squamous Epithelial Cells None seen <5 /hpf Urine Bacteria None seen None Seen /hpf Urine Yeast (Budding) Loaded None Seen /hpf Urine Glucose 3+ H Normal mg/dL White Blood Count 23.2 H 4.4-10.8 10^3/uL Red Blood Count 2.70 L 4.5-5.90 10^6/uL Hemoglobin 7.5 L 13.5-17.5 g/dL Hematocrit 25.3 L 41.0-53.0 % Mean Corpuscular Volume 93.6 80.0-100.0 fL Mean Corpuscular Hemoglobin 27.6 L 28.0-32.0 pg Mean Corpuscular Hemoglobin Concent 29.4 L 32.0-36.0 g/dL Red Cell Distribution Width 18.4 H 11.8-14.3 % Platelet Count 155 140-450 10^3/uL Mean Platelet Volume 13.3 H 6.9-10.8 fL Neutrophils (%) (Auto) 95.5 H 37.0-80.0 % Lymphocytes (%) (Auto) 1.6 L 10.0-50.0 % Monocytes (%) (Auto) 2.9 0.0-12.0 % Eosinophils (%) (Auto) 0.0 0.0-7.0 % Basophils (%) (Auto) 0.0 0.0-2.0 % Neutrophils # (Auto) 22.1 H 1.6-8.6 10 ^3/uL Lymphocytes # (Auto) 0.4 0.4-5.4 10 ^3/uL Monocytes # (Auto) 0.7 0-1.3 10 ^3/uL Eosinophils # (Auto) 0 0-0.8 10 ^3/uL Basophils # (Auto) 0 0-0.2 10 ^3/uL Nucleated Red Blood Cells 0.2 % Sodium Level 146 H 136-145 mmol/L Potassium Level 4.7 3.5-5.1 mmol/L Chloride Level 113 H 98-107 mmol/L Carbon Dioxide Level 18 L 20-31 mmol/L Anion Gap 15 5-15 Blood Urea Nitrogen 164 *H 9-23 mg/dL Creatinine 4.62 H 0.700-1.30 mg/dL Glomerular Filtration Rate Calc 15 >90 mL/min BUN/Creatinine Ratio 35.5 H 10.0-20.0 Serum Glucose 419 *H 74-106 mg/dL Calcium Level 7.4 L 8.7-10.4 mg/dL SEPSIS Sepsis Screen Date sepsis recognized/suspect: Jun 17, 2025 Time Sepsis recognized/suspect: 729 Recent Procedure: No On Antibiotic Therapy: No Respiratory Rate >20: No Heart Rate >90: No Temp<36 C (96.8 F) or >38.3 C: No SBP <90 or MAP <65 mmHG: No New Acute Mental Status Change: No Is the patient on CPAP, BIPAP,: No Physician Orders Admit (06/17/25 07:32) Allergies (06/17/25 07:32) Code Status (06/17/25 07:32) Npo (Nothing By Mouth) Diet (06/17/25 Breakfast) Condition: Unstable (06/17/25 07:32) Acetaminophen Tablet (Tylenol Tablet) (06/17/25 07:45) Morphine Sulfate Injection (06/17/25 07:45) Nitroglycerin Sublingual (Ntrostat Subli (06/17/25 07:45) Morphine Sulfate Injection (06/17/25 07:45) Stat Ekg For Chest Pain (06/17/25 07:32) Notify Md Of Changes From Base (06/17/25 07:32) Senior Technical Specialist For 24 Hours (06/17/25 07:32) Emergency Dysrhythmia Protocol (06/17/25 07:32) Rhythm Strips Once Every Shift (06/17/25 07:32) Oxygen By Nasal Cannula (06/17/25 07:32) *Consult Dr. Kirsten Verdin (06/17/25 07:32) Atorvastatin (Lipitor) (06/17/25 22:00) Tamsulosin Hydrochloride (Flomax) (06/17/25 10:00) Urine Bacterial Culture (06/17/25 07:36) Ceftriaxone 1gm/50ml D5w (Rocephin) (06/17/25 09:00) *Dr. Lizett Mooney (06/17/25 07:38) Carvedilol Tablet (Coreg Tablet) (06/17/25 10:00) Hydralazine Injection (Apresoline Inject (06/17/25 12:00) Nifedipine Er (Procardia Xl (Time-Releas (06/17/25 10:00) Mrsa Screen (06/17/25 10:35) Glucose Blood (Accu-Chek Comfort Curve T (06/17/25 12:45) Insulin R (Human) (Insulin R) (06/17/25 12:45) Dextrose 50% Syringe (06/17/25 12:45) D5w/Sod Chl 0.45% (D5w 1/2ns) (06/17/25 14:45) Iron Panel (06/17/25 14:46) Vital Signs Date Time Temp Pulse Resp B/P (MAP) Pulse Ox O2 Delivery O2 Flow Rate FiO2 06/17/25 12:09 98.4 84 19 137/86 (103) 100 98.4 06/17/25 11:15 91 166/97 06/17/25 10:26 156/88 06/17/25 10:26 92 156/88 06/17/25 10:08 91 14 99 Room Air* 0 21 06/17/25 10:08 96.0 91 14 183/98 (126) 99 96.0 06/17/25 09:02 190/115 06/17/25 07:50 183/98 7/24/25 07:14 97.0 97.0 Laboratory Tests Test 06/17/25 03:18 White Blood Count 23.2 10^3/uL (4.4-10.8) H Medications Medications Dose Ordered Sig/Wai Route Start Time Stop Time Status Last Admin Dose Admin Amlodipine Besylate 5 mg ONCE ONCE PO 06/17/25 07:45 06/17/25 07:46 DC 06/17/25 07:50 5 MG Carvedilol 6.25 mg Q12HR PO 06/17/25 10:00 06/17/25 10:26 6.25 MG Ceftriaxone Sodium 50 ml @ 100 mls/hr DAILY@09 IV 06/17/25 09:00 06/17/25 09:05 100 MLS/HR Diagnostic Test (Pha) 1 strip ACHS 06/17/25 12:45 06/17/25 13:44 1 STRIP Diagnostic Test (Pha) 1 strip IQ4HR 06/17/25 08:00 06/17/25 12:34 DC 06/17/25 09:00 1 STRIP Hydralazine HCl 10 mg Q6HR IV 06/17/25 12:00 06/17/25 09:02 10 MG Insulin Human Regular IQ4HR SC 06/17/25 08:00 06/17/25 12:34 DC 06/17/25 09:00 15 UNITS Nifedipine 30 mg DAILY PO 06/17/25 10:00 06/17/25 10:26 30 MG Sodium Chloride 1,000 ml @ 100 mls/hr Q10H IV 06/17/25 07:45 06/17/25 14:44 DC 06/17/25 09:05 100 MLS/HR Tamsulosin HCl 0.4 mg DAILY PO 06/17/25 10:00 06/17/25 10:26 0.4 MG Assessment/Plan Assessment/Plan 1. Dislodged G-tube GI consult for replacement, IV fluids 2. Sepsis due to acute cystitis IV antibiotics, IV fluids, monitor blood cultures 3. Type 2 diabetes with hyperglycemia Insulin sliding scale 4. Anemia of chronic disease IV iron 5. Pleural effusion Monitor 6. History of CVA Monitor 7. Hypertensive urgency Antihypertensives 8. LISANDRO with ATN on CKD 3B IV fluids, nephrology consult 9. Hypernatremia Monitor CMP 10. sever protein deficiency Plan discussed with: Patient My Orders Orders - ASIYA JACQUES WIDE PIECE GOODS INSPECTOR Procedure Category Date Status Time Admit ADMIT 06/17/25 Transmitted 07:32 Allergies TERESA 06/17/25 In Process 07:32 Code Status CODE 06/17/25 Transmitted 07:32 Npo (Nothing By DIET 06/17/25 Transmitted Mouth) Diet Breakfast Condition: Unstable TERESA 06/17/25 In Process 07:32 Acetaminophen Tablet PHA 06/17/25 In Process (Tylenol Tablet) 07:45 Morphine Sulfate PHA 06/17/25 In Process Injection 07:45 Nitroglycerin PHA 06/17/25 In Process Sublingual (Ntrostat 07:45 Morphine Sulfate PHA 06/17/25 In Process Injection 07:45 Stat Ekg For Chest TERESA 06/17/25 In Process Pain 07:32 Notify Of Changes TERESA 06/17/25 In Process From Base 07:32 Senior Technical Specialist For TERESA 06/17/25 In Process 24 Hours 07:32 Emergency Dysrhythmia TERESA 06/17/25 In Process Protocol 07:32 Rhythm Strips Once TERESA 06/17/25 In Process Every Shift 07:32 Oxygen By Nasal RT 06/17/25 Transmitted Cannula 07:32 *Consult Dr. Curtis CONS 06/17/25 Transmitted [place] 07:32 Atorvastatin (Lipitor) PHA 06/17/25 In Process 22:00 Tamsulosin PHA 06/17/25 In Process Hydrochloride (Flomax) 10:00 Urine Bacterial JENNIFER 06/17/25 In Process Culture 07:36 Ceftriaxone 1gm/50ml PHA 06/17/25 In Process D5w (Rocephin) 09:00 *Dr. Lizett Orellana CONS 06/17/25 Transmitted [place] 07:38 Carvedilol Tablet PHA 06/17/25 In Process (Coreg Tablet) 10:00 Hydralazine Injection PHA 06/17/25 In Process (Apresoline Inject 12:00 Nifedipine Er PHA 06/17/25 In Process (Procardia Xl 10:00 Mrsa Screen JENNIFER 06/17/25 In Process 10:35 Glucose Blood PHA 06/17/25 In Process (Accu-Chek Comfort 12:45 Insulin R (Human) PHA 06/17/25 In Process (Insulin R) 12:45 Dextrose 50% Syringe PHA 06/17/25 In Process 12:45 D5w/Sod Chl 0.45% PHA 06/17/25 In Process (D5w 1/2ns) 14:45 Iron Panel LAB 06/17/25 In Process 14:46 Date of Service: Jun 17, 2025 Billing Provider: MARIBEL WHALEN MD Common Visit Codes: [id number] INP/OBS CARE (MOD) ASIYA JACQUES W[employer] PIECE GOODS INSPECTOR Jun 17, 2025 14:57
[2025-06-17 15:21] LABS: Iron 20.0 ug/dL (65-175); Total Iron Binding Capacity 139.0 ug/dL (250-425)
--- NOTE | 2025-06-17 15:27 | DVHINCON2 ---
Date of service: Jun 17, 2025 Family History: FH: diabetes mellitus FHx: stroke Allergies: Coded Allergies: NO KNOWN ALLERGIES (Unverified , 07/19/23) Home Meds Active Scripts Sodium Bicarbonate (Sodium Bicarbonate) 650 Mg Tab, 650 MG PO TID for 30 Days, #90 TAB Prov:RAÚL [employer]EL [employer] CLEANER 01/11/25 Furosemide (Furosemide) 40 Mg Tab, 40 MG PO DAILY for 30 Days, #30 TAB Prov:RAÚL [employer]EL [employer]UR[employer] CLEANER 01/11/25 Atorvastatin Calcium (ATORVASTATIN CALCIUM) 20 Mg Tab, 20 MG PO HS for 30 Days, #30 TAB Prov:RAÚL [employer] CLE[employer]ER 01/11/25 Reported Medications Tamsulosin Hcl (Tamsulosin Hcl) 0.4 Mg Cap, 1 CAP PO DAILY for 30 Days, #30 12/31/24 Lisinopril (Lisinopril) 40 Mg Tab, 1 TAB PO DAILY for 30 Days, #30 12/31/24 Amlodipine Besylate (Amlodipine Besylate) 10 Mg Tab, 1 TAB PO DAILY for 30 Days, #30 12/31/24 Glipizide (Glipizide Er) 5 Mg Tab, 1 TAB PO DAILY for 30 Days, #30 TAKE 1 TABLET BY MOUTH ONCE DAILY WITH BREAKFAST. 12/31/24 Current Medications Current Medications Medications (Trade) Dose Ordered Sig/Wai Route PRN Reason Start Time Stop Time Status Last Admin Enoxaparin Sodium (Lovenox) 40 mg DAILY SC 06/17/25 10:00 UNV Acetaminophen (Tylenol Tablet) 650 mg Q6HP PRN PO PAIN SCALE 1-3 OR TEMP>100.4 06/17/25 07:45 Morphine Sulfate 2 mg Q4HPRN PRN IV SEVERE PAIN (7-10 PAIN SCALE) 06/17/25 07:45 Nitroglycerin (Ntrostat Sublingual) 0.4 mg Q5MINP PRN SL FOR CHEST PAIN 06/17/25 07:45 Morphine Sulfate 2 mg Q30M PRN IV FOR CHEST PAIN 06/17/25 07:45 Atorvastatin Calcium (Lipitor) 20 mg HS PO 06/17/25 22:00 Furosemide (Lasix Tablet) 40 mg DAILY PO 06/17/25 10:00 Cancel Tamsulosin HCl (Flomax) 0.4 mg DAILY PO 06/17/25 10:00 06/17/25 10:26 Diagnostic Test (Pha) (Accu-Chek Comfort Curve T) 1 strip IQ4HR 06/17/25 08:00 06/17/25 12:34 DC 06/17/25 09:00 Insulin Human Regular (InsuLIN R) IQ4HR SC 06/17/25 08:00 06/17/25 12:34 DC 06/17/25 09:00 Dextrose 50 ml UD PRN IV Blood Sugar LESS THAN 60 06/17/25 07:45 06/17/25 12:34 DC Sodium Chloride 1,000 ml @ 100 mls/hr Q10H IV 06/17/25 07:45 06/17/25 14:44 DC 06/17/25 09:05 Ceftriaxone Sodium 50 ml @ 100 mls/hr DAILY@09 IV 06/17/25 09:00 06/17/25 09:05 Carvedilol (Coreg Tablet) 6.25 mg Q12HR PO 06/17/25 10:00 06/17/25 10:26 Hydralazine HCl (Apresoline Injection) 10 mg Q6HR IV 06/17/25 12:00 06/17/25 09:02 Nifedipine (Procardia Xl (Time-Release)) 30 mg DAILY PO 06/17/25 10:00 06/17/25 10:26 Diagnostic Test (Pha) (Accu-Chek Comfort Curve T) 1 strip ACHS 06/17/25 12:45 06/17/25 13:44 Insulin Human Regular (InsuLIN R) ACHS SC 06/17/25 12:45 Dextrose 50 ml UD PRN IV Blood Sugar LESS THAN 60 06/17/25 12:45 Dextrose/Sodium Chloride 1,000 ml @ 75 mls/hr [id number] IV 06/17/25 14:45 Vital Signs Vital Signs Date Time Temp Pulse Resp B/P (MAP) Pulse Ox O2 Delivery O2 Flow Rate FiO2 06/17/25 12:09 98.4 84 19 137/86 (103) 100 98.4 06/17/25 10:08 Room Air* 0 21 Labs/Diagnostic Data Labs Test 06/17/25 13:38 06/17/25 10:58 06/17/25 03:29 06/17/25 03:18 Range/Units POC Glucose 202 H 70-106 mg/dl Urine Color Dark yellow Yellow Urine Clarity Ex.turbid Clear Urine pH 6.5 5.0-9.0 Urine Specific [place] 1.016 1.001-1.035 Urine Protein 2+ H Negative Urine Ketones Negative Negative Urine Blood 3+ H Negative /uL Urine Nitrite Negative Negative Urine Bilirubin Negative Negative Urine Urobilinogen Normal Negative mg/dL Urine Leukocyte Esterase 3+ Negative /uL Urine RBC 22 0 - 3 /hpf Urine WBC Clumps Present None Seen /hpf Urine Microscopic WBC 1038 H 0-3 /HPF Urine Squamous Epithelial Cells None seen <5 /hpf Urine Bacteria None seen None Seen /hpf Urine Yeast (Budding) Loaded None Seen /hpf Urine Glucose 3+ H Normal mg/dL White Blood Count 23.2 H 4.4-10.8 10^3/uL Red Blood Count 2.70 L 4.5-5.90 10^6/uL Hemoglobin 7.5 L 13.5-17.5 g/dL Hematocrit 25.3 L 41.0-53.0 % Mean Corpuscular Volume 93.6 80.0-100.0 fL Mean Corpuscular Hemoglobin 27.6 L 28.0-32.0 pg Mean Corpuscular Hemoglobin Concent 29.4 L 32.0-36.0 g/dL Red Cell Distribution Width 18.4 H 11.8-14.3 % Platelet Count 155 140-450 10^3/uL Mean Platelet Volume 13.3 H 6.9-10.8 fL Neutrophils (%) (Auto) 95.5 H 37.0-80.0 % Lymphocytes (%) (Auto) 1.6 L 10.0-50.0 % Monocytes (%) (Auto) 2.9 0.0-12.0 % Eosinophils (%) (Auto) 0.0 0.0-7.0 % Basophils (%) (Auto) 0.0 0.0-2.0 % Neutrophils # (Auto) 22.1 H 1.6-8.6 10 ^3/uL Lymphocytes # (Auto) 0.4 0.4-5.4 10 ^3/uL Monocytes # (Auto) 0.7 0-1.3 10 ^3/uL Eosinophils # (Auto) 0 0-0.8 10 ^3/uL Basophils # (Auto) 0 0-0.2 10 ^3/uL Nucleated Red Blood Cells 0.2 % Sodium Level 146 H 136-145 mmol/L Potassium Level 4.7 3.5-5.1 mmol/L Chloride Level 113 H 98-107 mmol/L Carbon Dioxide Level 18 L 20-31 mmol/L Anion Gap 15 5-15 Blood Urea Nitrogen 164 *H 9-23 mg/dL Creatinine 4.62 H 0.700-1.30 mg/dL Glomerular Filtration Rate Calc 15 >90 mL/min BUN/Creatinine Ratio 35.5 H 10.0-20.0 Serum Glucose 419 *H 74-106 mg/dL Calcium Level 7.4 L 8.7-10.4 mg/dL Assessment [id number] AFEBRILE VSS DISPLACED G TUBE CONSIDER PLACEMENT OF G TUBE AT BEDSIDE NURSE AT BEDSIDE Plan discussed with: Other OTILIA PALMER MD Jun 17, 2025 15:27
--- NOTE | 2025-06-17 15:29 | DVHPN2 ---
Progress Note Date Seen: Jun 17, 2025 Medical Necessity Reason Pt with a Central, PICC or Fol: No Objective vital signs Vital Sign Date Time Temp Pulse Resp B/P (MAP) Pulse Ox O2 Delivery O2 Flow Rate FiO2 06/17/25 12:09 98.4 84 19 137/86 (103) 100 98.4 06/17/25 10:08 Room Air* 0 21 medications Current Medications Medications Dose Ordered Sig/Wai Route Start Time Stop Time Status Last Admin Dose Admin Enoxaparin Sodium 40 mg DAILY SC 06/17/25 10:00 UNV Acetaminophen 650 mg Q6HP PRN PO 06/17/25 07:45 Morphine Sulfate 2 mg Q4HPRN PRN IV 06/17/25 07:45 Nitroglycerin 0.4 mg Q5MINP PRN SL 06/17/25 07:45 Morphine Sulfate 2 mg Q30M PRN IV 06/17/25 07:45 Atorvastatin Calcium 20 mg HS PO 06/17/25 22:00 Furosemide 40 mg DAILY PO 06/17/25 10:00 Cancel Tamsulosin HCl 0.4 mg DAILY PO 06/17/25 10:00 06/17/25 10:26 Ceftriaxone Sodium 50 ml @ 100 mls/hr DAILY@09 IV 06/17/25 09:00 06/17/25 09:05 Carvedilol 6.25 mg Q12HR PO 06/17/25 10:00 06/17/25 10:26 Hydralazine HCl 10 mg Q6HR IV 06/17/25 12:00 06/17/25 09:02 Nifedipine 30 mg DAILY PO 06/17/25 10:00 06/17/25 10:26 Diagnostic Test (Pha) 1 strip ACHS 06/17/25 12:45 06/17/25 13:44 Insulin Human Regular ACHS SC 06/17/25 12:45 Dextrose 50 ml UD PRN IV 06/17/25 12:45 Dextrose/Sodium Chloride 1,000 ml @ 75 mls/hr [id number] IV 06/17/25 14:45 laboratory and microbiology Laboratory Tests 06/17/25 03:18 Test 06/17/25 03:18 Range/Units Serum Glucose 419 *H 74-106 mg/dL Problem List/Assessment/Plan Problem List/Assessment/Plan AFEBRILE VSS G TUBE PLACEMENT DONE AT BEDSIDE USING STERLE PRECAUTIONS NO COMPLICATIONS NURSE AT BEDSIDE GASTROGRAFIN UGI FOR TUBE PLACEMENT Plan discussed with: Other My Orders My Orders Orders - OTILIA PALMER MD Procedure Category Date Status Time Ugi With Gastrografin XY 06/17/25 Transmitted 15:25 OTILIA PALMER MD Jun 17, 2025 15:29
[2025-06-17] MEDS: D5W/SOD CHL 0.45% 1,000 ML IV SCH (15:32)
--- NOTE | 2025-06-17 15:45 | DVHINCON2 ---
DATE OF CONSULTATION: 06/17/2025 HISTORY OF PRESENT ILLNESS: A 44-year-old with a history of CVA, CKD, diabetes, multiple UTIs, coming in with a dislodged G-tube. I was asked to see this patient, unable to give history. Most of the information obtained from the chart and the nursing staff. PHYSICAL EXAMINATION: VITAL SIGNS: Afebrile. Stable signs. HEENT: No evidence of pallor, cyanosis, or jaundice. NECK: Supple and nontender, with no thyromegaly or lymphadenopathy. CHEST AND LUNGS: Clear. HEART: Within normal limits. ABDOMEN: Soft with a displaced G-tube and the opening visualized in the left upper abdomen. NEUROLOGIC: Not assessed. EXTREMITIES: Unremarkable. CLINICAL IMPRESSION: Dehydration, malnutrition with a displaced G-tube. PLAN: Plan will be to consider placement of the G-tube at bedside. Benefits and risks have been indicated and the nursing staff is at the bedside for the assistance and placement of the tube. MD GUNNER Dyer/BELINDA TID: [id number] RECEIPT: [id number] cc: Fahad Villa
[2025-06-17] MEDS: GASTROGRAFIN 30 ML SOL ONE (16:24)
[2025-06-17 16:41] VITALS: BP 135/87; PULSE 78; RESP 17; TEMP 97.9; O2SAT 100
--- NOTE | 2025-06-17 17:04 | DVH ---
Indication: g tube placement Technique: XY KUB ABDOMEN SINGLE VIEWXY Comparison: None FINDINGS/IMPRESSION: Limited examination with the mid and lower abdomen only visualized. Gastrostomy tube not adequately characterized. Recommend repeat radiographs with visualization of the entire abdomen. Old right iliac/ acetabular fracture deformity. [id number] bilateral sacroiliac degenerative vickey int disease.
[2025-06-17 21:00] VITALS: BP 129/81; PULSE 74; RESP 18; TEMP 98.1; O2SAT 99
[2025-06-17] MEDS: ATORVASTATIN 20 MG TAB PO SCH (22:00)
[2025-06-18] VITALS (7 sets, daily range): BP systolic 95–131; BP diastolic 63–84; PULSE 63–84; RESP 14–20; TEMP 96.5–98.2; O2SAT 92–99
[2025-06-18 07:12] LABS: Hemoglobin 7.3 g/dL (13.5-17.5); Nucleated Red Blood Cells % 0.2 %
[2025-06-18 07:15] LABS: Hematocrit 22.6 % (41.0-53.0); Mean Corpuscular Hemoglobin 28.2 pg (28.0-32.0); Mean Corpuscular Volume 87.9 fL (80.0-100.0)
[2025-06-18 07:29] LABS: Alanine Aminotransferase 11 U/L (7-40); Anion Gap 14 (5-15); Carbon Dioxide 21 mmol/L (20-31); Potassium 4.1 mmol/L (3.5-5.1)
[2025-06-18 07:31] LABS: Chloride 116 mmol/L (98-107); Sodium 151 mmol/L (136-145)
[2025-06-18 07:32] LABS: Albumin 2.5 g/dL (3.2-4.8); Alkaline Phosphatase 248 U/L (46-116); Bilirubin, Total < 0.2 mg/dL (0.2-1.0); Calcium 7.7 mg/dL (8.7-10.4); Glucose 165 mg/dL (74-106); Total Protein 5.2 g/dL (5.7-8.2)
[2025-06-18 07:39] LABS: BUN/Creatinine Ratio 38.4 (10.0-20.0)
[2025-06-18 07:43] LABS: Blood Urea Nitrogen 164 mg/dL (9-23)
--- NOTE | 2025-06-18 08:04 | DVHPN2 ---
Progress Note Date Seen: Jun 18, 2025 Medical Necessity Reason Pt with a Central, PICC or Fol: No Subjective Review of Systems: Not Done (Unable to obtain) Objective vital signs Vital Sign Date Time Temp Pulse Resp B/P (MAP) Pulse Ox O2 Delivery O2 Flow Rate FiO2 06/18/25 05:28 128/79 06/18/25 05:00 98.2 72 18 92 98.2 06/17/25 20:00 Room Air* 0 21 Total Intake and Output 06/17/25 06/17/25 06/18/25 15:00 23:00 07:00 Intake Total 200 ml 225 ml 775 ml Output Total 800 ml 450 ml Balance 200 ml -575 ml 325 ml medications Current Medications Medications Dose Ordered Sig/Wai Route Start Time Stop Time Status Last Admin Dose Admin Enoxaparin Sodium 40 mg DAILY SC 06/17/25 10:00 UNV Acetaminophen 650 mg Q6HP PRN PO 06/17/25 07:45 Morphine Sulfate 2 mg Q4HPRN PRN IV 06/17/25 07:45 Nitroglycerin 0.4 mg Q5MINP PRN SL 06/17/25 07:45 Morphine Sulfate 2 mg Q30M PRN IV 06/17/25 07:45 Atorvastatin Calcium 20 mg HS PO 06/17/25 22:00 Furosemide 40 mg DAILY PO 06/17/25 10:00 Cancel Tamsulosin HCl 0.4 mg DAILY PO 06/17/25 10:00 06/17/25 10:26 0.4 MG Ceftriaxone Sodium 50 ml @ 100 mls/hr DAILY@09 IV 06/17/25 09:00 06/17/25 09:05 100 MLS/HR Carvedilol 6.25 mg Q12HR PO 06/17/25 10:00 06/17/25 10:26 6.25 MG Hydralazine HCl 10 mg Q6HR IV 06/17/25 12:00 06/17/25 09:02 10 MG Nifedipine 30 mg DAILY PO 06/17/25 10:00 06/17/25 10:26 30 MG Diagnostic Test (Pha) 1 strip ACHS 06/17/25 12:45 06/18/25 05:30 1 STRIP Insulin Human Regular ACHS SC 06/17/25 12:45 Dextrose 50 ml UD PRN IV 06/17/25 12:45 Dextrose/Sodium Chloride 1,000 ml @ 75 mls/hr [id number] IV 06/17/25 14:45 06/18/25 04:43 75 MLS/HR Iron Sucrose 110 ml @ 110 mls/hr DAILY@1200 IV 06/18/25 12:00 06/22/25 12:59 Examination: GENERAL:Normal, LUNGS:Abnormal (Diminished), CVS:Normal, ABDOMEN:Normal, SKIN:Normal, NEURO:Normal laboratory and microbiology Laboratory Tests 06/18/25 06:33 Test 06/18/25 06:33 Range/Units Serum Glucose 165 #H 74-106 mg/dL Problem List/Assessment/Plan Problem List/Assessment/Plan 1. Dislodged G-tube GI consult for replacement, IV fluids 2. Sepsis due to acute cystitis IV antibiotics, IV fluids, monitor blood cultures 3. Type 2 diabetes with hyperglycemia Insulin sliding scale 4. Anemia of chronic disease IV iron 5. Pleural effusion Monitor 6. History of CVA Monitor 7. Hypertensive urgency Antihypertensives 8. LISANDRO with ATN on CKD 3B IV fluids, nephrology consult 9. Hypernatremia Monitor CMP 10. sever protein malnutrition dietary consult Subjective: At baseline Objective: Patient was initially admitted for dislodged G-tube. G-tube was replaced by Dr. Layo Verdin. Dietary recommendations for G-tube feedings have been obtain, we will start G-tube feedings. Patient was subsequently found to be septic due to acute cystitis. Patient was placed on IV Rocephin, awaiting urine culture. Patient was subsequently found to have LISANDRO with ATN and hypernatremia. Patient is currently on D5W at 70. Ordered free water and Nephrology consult. Patient was here not too long ago and became severely deconditioned was not eating or drinking and required to have G-tube placement. Patient is more alert at the time of exam. We will order swallow eval. If patient is tolerating oral intake per swallow eval. We will place back on diabetic diet. Plan: Obtain swallow eval, start G-tube feedings, continue D5W at 70, pending nephrology consult, continue Rocephin, insulin sliding scale, pending urine culture Plan discussed with: Patient My Orders My Orders Orders - ASIYA JACQUES Procedure Category Date Status Time [facility] 06/17/25 In Process (Procardia Xl 10:00 Mrsa Screen JENNIFER 06/17/25 In Process 10:35 Glucose Blood PHA 06/17/25 In Process (Accu-Chek Comfort 12:45 Insulin R (Human) PHA 06/17/25 In Process (Insulin R) 12:45 Dextrose 50% Syringe PHA 06/17/25 In Process 12:45 D5w/Sod Chl 0.45% PHA 06/17/25 In Process (D5w 1/2ns) 14:45 Blood Culture JENNIFER 06/17/25 In Process 14:55 Iron Sucrose Complex PHA 06/18/25 In Process (Venofer) 12:00 * Dietary Consult CONS 06/17/25 Transmitted 17:53 D5w 5% PHA 06/18/25 Transmitted 08:15 Date of Service: Jun 18, 2025 Billing Provider: MARIBEL WHALEN MD Common Visit Codes: [id number] INP/OBS CARE (MOD) ASIYA JACQUES FIRE PREVENTION CAPTAIN Jun 18, 2025 08:04
[2025-06-18] MEDS: D5W 5% 1,000 ML IV SCH (09:32)
[2025-06-18] MEDS: IRON SUCROSE COMPLEX 110 ML IV SCH (12:27)
--- NOTE | 2025-06-18 21:30 | DVHPN2 ---
Progress Note - Dictate Date Seen: Jun 18, 2025 Medical Necessity Reason Pt with a Central, PICC or Fol: No Subjective No new complaints, patient is resting comfortably at bedside A 16 Pashto gastrostomy tube was placed through the previous gastrostomy opening yesterday by Dr. Layo Verdin Patient's postprocedure x-ray yesterday appears to have been done without Gastrografin so placement of the tube could not be confirmed vital signs Vital Sign Date Time Temp Pulse Resp B/P (MAP) Pulse Ox O2 Delivery O2 Flow Rate FiO2 06/18/25 20:43 63 14 95/63 (74) 99 06/18/25 17:00 96.5 96.5 06/18/25 08:00 Room Air* 0 21 Total Intake and Output 06/17/25 06/17/25 06/18/25 15:00 23:00 07:00 Intake Total 200 ml 225 ml 775 ml Output Total 800 ml 450 ml Balance 200 ml -575 ml 325 ml medications Current Medications Medications Dose Ordered Sig/Wai Route Start Time Stop Time Status Last Admin Dose Admin Enoxaparin Sodium 40 mg DAILY SC 06/17/25 10:00 UNV Acetaminophen 650 mg Q6HP PRN PO 06/17/25 07:45 Morphine Sulfate 2 mg Q4HPRN PRN IV 06/17/25 07:45 Nitroglycerin 0.4 mg Q5MINP PRN SL 06/17/25 07:45 Morphine Sulfate 2 mg Q30M PRN IV 06/17/25 07:45 Atorvastatin Calcium 20 mg HS PO 06/17/25 22:00 Furosemide 40 mg DAILY PO 06/17/25 10:00 Cancel Tamsulosin HCl 0.4 mg DAILY PO 06/17/25 10:00 06/17/25 10:26 0.4 MG Ceftriaxone Sodium 50 ml @ 100 mls/hr DAILY@09 IV 06/17/25 09:00 06/18/25 09:35 100 MLS/HR Carvedilol 6.25 mg Q12HR PO 06/17/25 10:00 06/18/25 09:40 6.25 MG Hydralazine HCl 10 mg Q6HR IV 06/17/25 12:00 06/17/25 09:02 10 MG Diagnostic Test (Pha) 1 strip ACHS 06/17/25 12:45 06/18/25 17:14 1 STRIP Insulin Human Regular ACHS SC 06/17/25 12:45 06/18/25 11:41 4 UNITS Dextrose 50 ml UD PRN IV 06/17/25 12:45 Iron Sucrose 110 ml @ 110 mls/hr DAILY@1200 IV 06/18/25 12:00 06/22/25 12:59 06/18/25 12:27 110 MLS/HR Dextrose 1,000 ml @ 75 mls/hr [id number] IV 06/18/25 08:15 06/18/25 09:32 75 MLS/HR Amlodipine Besylate 10 mg DAILY GT 06/18/25 10:00 06/18/25 09:50 10 MG Mupirocin 1 applic BID EACHNOSTRI 06/18/25 22:00 06/23/25 21:59 objective GENERAL:Normal, LUNGS:Abnormal (Diminished), CVS:Normal, ABDOMEN:Normal, SKIN:Normal, NEURO:Normal laboratory and microbiology Laboratory Tests 06/18/25 06:33 Test 06/18/25 06:33 Range/Units Serum Glucose 165 #H 74-106 mg/dL Problems(with codes): (1) Encounter for gastrojejunal tube placement (2) UTI (urinary tract infection) (3) Acute prerenal azotemia Prognosis Plan Repeat KUB today with 80 mL of Gastrografin to check placement of the G-tube If the G-tube is in place start enteral tube feedings via the G-tube at 30 mL/hour Local G-tube care discussed with the nurse by cleaning with dilute hydrogen peroxide twice a day and applying dry dressing Continue IV antibiotics, IV fluid hydration and monitor labs Dietary Evaluation Review Comments: 1. TPN per pharmacy to meet pt's needs @ 100%. 2. When GT available, TF Nepro @25ml/hr (49g Protein 1062 kcal 436ml water) plus Dextrose 5% for an addition 200 kcal 3. continue iron supplementation 4. Reassess in 3-5 days Expected Outcomes/Goals: imprvoed nutrition status, avoid uremic symptoms, gradual wt gains. Plan discussed with: Patient, Other (Nurse) CHANTE VERDIN MD Jun 18, 2025 21:30
[2025-06-19] VITALS (9 sets, daily range): BP systolic 91–137; BP diastolic 61–84; PULSE 61–71; RESP 14–18; TEMP 96–98; O2SAT 90–100
--- NOTE | 2025-06-19 00:06 | DVH ---
Exam: XY KUB ABDOMEN SINGLE VIEW Indication: check placement of GT Comparison: XY KUB ABDOMEN SINGLE VIEW on DOS: 06/17/25, XY KUB ABDOMEN SINGLE VIEW on DOS: 05/28/25 Technique: 2 radiographic views of the abdomen. Findings: Visualized portions of the lung bases are clear. Percutaneous gastrostomy in satisfactory position with contrast confirmation of the gastric lumen. Nonobstructive bowel gas pattern noted. There is no definite evidence for pneumoperitoneum. No abnormal calcifications noted. Impression: 1. Confirmed appropriate placement of percutaneous gastrostomy with contrast opacification of the gas tric lumen.
[2025-06-19] MEDS: GASTROGRAFIN 30 ML SOL ONE (00:56)
[2025-06-19] MEDS: MUPIROCIN 2% OINT 15gm or 22gm FOR MRSA NARES EACHNOSTRI SCH (01:07)
[2025-06-19] MEDS: Ensure Enlive Vanilla 8oz Bottle PO SCH (07:00)
[2025-06-19 13:39] LABS: Chloride 113 mmol/L (98-107); Potassium 4.1 mmol/L (3.5-5.1); Sodium 144 mmol/L (136-145)
[2025-06-19 13:51] LABS: Anion Gap 14 (5-15); Calcium 6.5 mg/dL (8.7-10.4); Carbon Dioxide 17 mmol/L (20-31)
[2025-06-19 13:56] LABS: BUN/Creatinine Ratio 38.3 (10.0-20.0)
[2025-06-19 13:57] LABS: Glucose 152 mg/dL (74-106)
[2025-06-19 13:59] LABS: Blood Urea Nitrogen 147 mg/dL (9-23)
--- NOTE | 2025-06-19 14:17 | DVHPN2 ---
Progress Note Date Seen: Jun 19, 2025 Medical Necessity Reason Pt with a Central, PICC or Fol: No Subjective Review of Systems: Not Done (unable to obtain) Objective vital signs Vital Sign Date Time Temp Pulse Resp B/P (MAP) Pulse Ox O2 Delivery O2 Flow Rate FiO2 06/19/25 12:52 110/98 06/19/25 12:35 96.0 62 16 90 96.0 06/19/25 08:10 Room Air* 0 21 Total Intake and Output 06/18/25 06/18/25 06/19/25 15:00 23:00 07:00 Intake Total 160 ml 1415 ml 150 ml Output Total 340 ml Balance 160 ml 1075 ml 150 ml medications Current Medications Medications Dose Ordered Sig/Wai Route Start Time Stop Time Status Last Admin Dose Admin Enoxaparin Sodium 40 mg DAILY SC 06/17/25 10:00 UNV Acetaminophen 650 mg Q6HP PRN PO 06/17/25 07:45 Morphine Sulfate 2 mg Q4HPRN PRN IV 06/17/25 07:45 Nitroglycerin 0.4 mg Q5MINP PRN SL 06/17/25 07:45 Morphine Sulfate 2 mg Q30M PRN IV 06/17/25 07:45 Atorvastatin Calcium 20 mg HS PO 06/17/25 22:00 06/19/25 01:07 20 MG Furosemide 40 mg DAILY PO 06/17/25 10:00 Cancel Tamsulosin HCl 0.4 mg DAILY PO 06/17/25 10:00 06/19/25 09:21 0.4 MG Ceftriaxone Sodium 50 ml @ 100 mls/hr DAILY@09 IV 06/17/25 09:00 06/19/25 09:23 100 MLS/HR Carvedilol 6.25 mg Q12HR PO 06/17/25 10:00 06/19/25 09:21 6.25 MG Hydralazine HCl 10 mg Q6HR IV 06/17/25 12:00 06/19/25 12:52 10 MG Diagnostic Test (Pha) 1 strip ACHS 06/17/25 12:45 06/19/25 11:30 1 STRIP Insulin Human Regular ACHS SC 06/17/25 12:45 06/18/25 11:41 4 UNITS Dextrose 50 ml UD PRN IV 06/17/25 12:45 Iron Sucrose 110 ml @ 110 mls/hr DAILY@1200 IV 06/18/25 12:00 06/22/25 12:59 06/19/25 12:53 110 MLS/HR Dextrose 1,000 ml @ 75 mls/hr [id number] IV 06/18/25 08:15 06/18/25 09:32 75 MLS/HR Amlodipine Besylate 10 mg DAILY GT 06/18/25 10:00 06/19/25 09:22 10 MG Mupirocin 1 applic BID EACHNOSTRI 06/18/25 22:00 06/23/25 21:59 06/19/25 09:22 1 APPLIC Enteral Nutritional Formula 30 ml Q1HR PO 06/19/25 06:00 06/19/25 13:14 30 ML Examination: GENERAL:Normal, LUNGS:Abnormal (diminished), ABDOMEN:Normal, SKIN:Normal, NEURO:Normal laboratory and microbiology Laboratory Tests 06/19/25 13:20 Test 06/19/25 13:20 Range/Units Serum Glucose 152 H 74-106 mg/dL Microbiology Date/Time Source Procedure Growth Status 06/17/25 15:20 Blood Blood Culture - Preliminary NO GROWTH AFTER 24 HOURS OF INCUBATION. Resulted 06/17/25 10:58 Nose MRSA Screen - Final Methicillin Resistant S.aureus Complete Labs and/or images reviewed: Labs reviewed by me, Image(s) reviewed by me Problem List/Assessment/Plan Problem List/Assessment/Plan 1. Dislodged G-tube GI consult for replacement, IV fluids 2. Sepsis due to acute cystitis IV antibiotics, IV fluids, monitor blood cultures 3. Type 2 diabetes with hyperglycemia Insulin sliding scale 4. Anemia of chronic disease IV iron 5. Pleural effusion Monitor 6. History of CVA Monitor 7. Hypertensive urgency Antihypertensives 8. LISANDRO with ATN on CKD 3B IV fluids, nephrology consult 9. Hypernatremia Monitor CMP 10. sever protein malnutrition dietary consult Subjective: At baseline Objective: Patient was initially admitted for dislodged G-tube. G-tube was replaced by Dr. Layo Verdin. Tube feedings have been started today, patient appears to be tolerating at this time. Patient was subsequently found to be septic due to acute cystitis. Patient was placed on IV Rocephin, awaiting urine culture. Patient was subsequently found to have LISANDRO with ATN and hypernatremia. LISANDRO is improving GFR is 10 CR 3.84 and BUN 147. hypernatremia also improving at 144. Will change fluids to 1/2 NS at 70 . Ordered free water and Nephrology consult. Patient was here not too long ago and became severely deconditioned was not eating or drinking and required to have G-tube placement. Patient is more alert at the time of exam. still pending swallow evaluation. If patient is tolerating oral intake per swallow eval. We will place back on diabetic diet. Mother Cait was called and updated on POC. Plan: Obtain swallow eval, continue with G-tube feedings, change fluids to half NS at 70, pending nephrology consult, continue Rocephin, insulin sliding scale, pending urine culture Plan discussed with: Other (mother) My Orders My Orders Orders - ASIYA JACQUES Procedure Category Date Status Time Tube Feeding NOURISH 06/18/25 Transmitted 15:05 Complete Blood Count LAB 06/19/25 Logged 05:00 Apply Z-Guard TERESA 06/18/25 In Process 12:45 Communication Order ORDERS 06/18/25 Transmitted 18:29 Communication Order ORDERS 06/19/25 Transmitted 07:14 Communication Order ORDERS 06/19/25 Transmitted 07:16 Chest Portable XY 06/19/25 Logged 13:17 Dietary Evaluation Review Comments: 1. TPN per pharmacy to meet pt's needs @ 100%. 2. When GT available, TF Nepro @25ml/hr (49g Protein 1062 kcal 436ml water) plus Dextrose 5% for an addition 200 kcal 3. continue iron supplementation 4. Reassess in 3-5 days Expected Outcomes/Goals: imprvoed nutrition status, avoid uremic symptoms, gradual wt gains. Date of Service: Jun 19, 2025 Billing Provider: MARIBEL WHALEN MD Common Visit Codes: [id number] INP/OBS CARE (MOD) ASIYA JACQUES Jun 19, 2025 14:17
[2025-06-19] MEDS: SOD CHL 0.45% 1,000 ML IV SCH (14:30)
--- NOTE | 2025-06-19 14:43 | DVH ---
AP portable chest Comparison: 06/17/2025 CLINICAL INDICATION: PNA FINDINGS: Heart size is enlarged. There is a band of atelectasis in the left upper lobe. Mild pulmona ry vascular congestion is present. Small left pleural effusion IMPRESSION: 1. Compared to previous day's exam slight improvement in congestive changes. There is a band of atelect asis in the left upper lobe and there is probably residual subpulmonic left pleural effusion
[2025-06-19 15:03] LABS: Magnesium 2.0 mg/dL (1.6-2.6)
[2025-06-19 19:16] LABS: Mean Corpuscular Volume 89.7 fL (80.0-100.0)
[2025-06-19 19:17] LABS: Hematocrit 20.3 % (41.0-53.0); Mean Corpuscular Hemoglobin 28.2 pg (28.0-32.0); Nucleated Red Blood Cells % 0.2 %
[2025-06-19 19:25] LABS: Hemoglobin 6.4 g/dL (13.5-17.5)
[2025-06-20] VITALS (14 sets, daily range): BP systolic 94–112; BP diastolic 66–81; PULSE 66–74; RESP 16–18; TEMP 96.4–97.9; O2SAT 96–99
[2025-06-20 13:27] LABS: Hematocrit 25.9 % (41.0-53.0); Hemoglobin 8.2 g/dL (13.5-17.5); Mean Corpuscular Hemoglobin 28.4 pg (28.0-32.0); Mean Corpuscular Volume 89.7 fL (80.0-100.0); Nucleated Red Blood Cells % 0.2 %
--- NOTE | 2025-06-20 13:42 | DVHPN2 ---
Progress Note Date Seen: Jun 20, 2025 Medical Necessity Reason Pt with a Central, PICC or Fol: No Subjective Review of Systems: Not Done (unable to obtain) Objective vital signs Vital Sign Date Time Temp Pulse Resp B/P (MAP) Pulse Ox O2 Delivery O2 Flow Rate FiO2 06/20/25 12:51 112/67 06/20/25 09:21 69 06/20/25 09:00 96.5 18 96 96.5 06/20/25 08:10 Room Air* 0 21 Total Intake and Output 06/19/25 06/19/25 06/20/25 15:00 23:00 07:00 Intake Total 50 ml 1300 ml Output Total 100 ml 250 ml Balance 50 ml -100 ml 1050 ml medications Current Medications Medications Dose Ordered Sig/Wai Route Start Time Stop Time Status Last Admin Dose Admin Enoxaparin Sodium 40 mg DAILY SC 06/17/25 10:00 UNV Acetaminophen 650 mg Q6HP PRN PO 06/17/25 07:45 Morphine Sulfate 2 mg Q4HPRN PRN IV 06/17/25 07:45 Nitroglycerin 0.4 mg Q5MINP PRN SL 06/17/25 07:45 Morphine Sulfate 2 mg Q30M PRN IV 06/17/25 07:45 Atorvastatin Calcium 20 mg HS PO 06/17/25 22:00 06/19/25 21:56 20 MG Furosemide 40 mg DAILY PO 06/17/25 10:00 Cancel Tamsulosin HCl 0.4 mg DAILY PO 06/17/25 10:00 06/20/25 09:19 0.4 MG Ceftriaxone Sodium 50 ml @ 100 mls/hr DAILY@09 IV 06/17/25 09:00 06/20/25 09:20 100 MLS/HR Carvedilol 6.25 mg Q12HR PO 06/17/25 10:00 06/19/25 09:21 6.25 MG Hydralazine HCl 10 mg Q6HR IV 06/17/25 12:00 06/20/25 12:51 10 MG Diagnostic Test (Pha) 1 strip ACHS 06/17/25 12:45 06/20/25 11:30 1 STRIP Insulin Human Regular ACHS SC 06/17/25 12:45 06/20/25 12:40 2 UNITS Dextrose 50 ml UD PRN IV 06/17/25 12:45 Iron Sucrose 110 ml @ 110 mls/hr DAILY@1200 IV 06/18/25 12:00 06/22/25 12:59 06/20/25 12:51 110 MLS/HR Amlodipine Besylate 10 mg DAILY GT 06/18/25 10:00 06/19/25 09:22 10 MG Mupirocin 1 applic BID EACHNOSTRI 06/18/25 22:00 06/23/25 21:59 06/20/25 09:20 1 APPLIC Sodium Chloride 1,000 ml @ 100 mls/hr Q10H IV 06/20/25 13:30 Bumetanide 2.5 mg BIDD IV 06/20/25 18:00 Sodium Bicarbonate 650 mg BID PO 06/20/25 22:00 Examination: GENERAL:Normal, LUNGS:Normal, CVS:Normal, ABDOMEN:Normal, SKIN:Normal, NEURO:Normal laboratory and microbiology Laboratory Tests 06/20/25 13:00 Test 06/20/25 13:00 Range/Units Serum Glucose Pending Microbiology Date/Time Source Procedure Growth Status 06/17/25 15:20 Blood Blood Culture - Preliminary NO GROWTH AFTER 48 HOURS OF INCUBATION. Resulted 06/17/25 10:58 Nose MRSA Screen - Final Methicillin Resistant S.aureus Complete Labs and/or images reviewed: Labs reviewed by me, Image(s) reviewed by me Problem List/Assessment/Plan Problem List/Assessment/Plan 1. Dislodged G-tube GI consult for replacement, IV fluids 2. Sepsis due to acute cystitis IV antibiotics, IV fluids, monitor blood cultures 3. Type 2 diabetes with hyperglycemia Insulin sliding scale 4. Anemia of chronic disease IV iron 5. Pleural effusion Monitor 6. History of CVA Monitor 7. Hypertensive urgency Antihypertensives 8. LISANDRO with ATN on CKD 3B IV fluids, nephrology consult 9. Hypernatremia Monitor CMP 10. sever protein malnutrition dietary consult 11. acute on chronic iron deficiency anemia transfuse for hgb below 7 12 quadriplegia Subjective: At baseline Objective: Patient was initially admitted for dislodged G-tube. G-tube was replaced by Dr. Layo Verdin. Tube feedings have been started today, patient appears to be tolerating at this time. Patient was subsequently found to be septic due to acute cystitis. Patient was placed on IV Rocephin, awaiting urine culture. Patient was subsequently found to have LISANDRO with ATN and hypernatremia. LISANDRO is improving GFR is 19 CR 3.86 and BUN 137, nephrology saw patient and adjusted IV fluids.Hypernatremia has resolved, will continue to monitor . Will continue with free water. Patients hgb yesterday was 6.2 recived 1 unit of PRBC and hgb is now 8.2, no signs of bedding likely from acute on chronic iron deficiency anemia, patient is also getting IV iron. Patient was here not too long ago and became severely deconditioned was not eating or drinking and required to have G-tube placement. Patient is more alert at the time of exam. still pending swallow evaluation. If patient is tolerating oral intake per swallow eval. We will place back on diabetic diet. Plan: Obtain swallow eval, continue with G-tube feedings, continue with IVF per nephrology,nephrology consult appreciated, continue Rocephin, insulin sliding scale, pending urine culture Plan discussed with: Patient My Orders My Orders Orders - ASIYA JACQUES Procedure Category Date Status Time Basic Metabolic Panel LAB 06/20/25 In Process 05:00 Dietary Evaluation Review Comments: 1. TPN per pharmacy to meet pt's needs @ 100%. 2. When GT available, TF Nepro @25ml/hr (49g Protein 1062 kcal 436ml water) plus Dextrose 5% for an addition 200 kcal 3. continue iron supplementation 4. Reassess in 3-5 days Expected Outcomes/Goals: imprvoed nutrition status, avoid uremic symptoms, gradual wt gains. Date of Service: Jun 20, 2025 Billing Provider: MARIBEL WHALEN MD Common Visit Codes: [id number] INP/OBS CARE (MOD) ASIYA JACQUES Jun 20, 2025 13:42
[2025-06-20 13:43] LABS: Potassium 3.9 mmol/L (3.5-5.1); Sodium 141 mmol/L (136-145)
[2025-06-20 13:46] LABS: Anion Gap 15 (5-15); Calcium 6.9 mg/dL (8.7-10.4); Carbon Dioxide 16 mmol/L (20-31); Chloride 110 mmol/L (98-107)
[2025-06-20 13:50] LABS: BUN/Creatinine Ratio 35.5 (10.0-20.0)
[2025-06-20 13:57] LABS: Glucose 114 mg/dL (74-106)
[2025-06-20 13:58] LABS: Blood Urea Nitrogen 137 mg/dL (9-23)
[2025-06-20] MEDS: SOD CHL 0.45% 1,000 ML IV SCH (14:19)
--- NOTE | 2025-06-20 14:38 | DVHINCON2 ---
DATE OF CONSULTATION: 06/20/2025 CONSULTING PHYSICIAN: Dr. Faustin. REASON FOR CONSULTATION: Renal failure. HISTORY OF PRESENT ILLNESS: The patient is a 44-year-old gentleman who appears to be chronically ill, bedbound, who has a history of stroke with neurologic sequelae. He is quadriplegic. Currently lives in a custodial. His gastric tube got dislodged and he could not get feedings or hydration for an unknown period of time. He also has an indwelling Lindsay catheter. He came back to the hospital because he was having mental status changes and could not have further nutrition delivered through the tube. On arrival, he was found to be in renal failure with a creatinine of 4. ____. Unfortunately, in this patient, we cannot do review of systems because even though he is alert, he is nonverbal and he does not even follow simple commands. PAST MEDICAL HISTORY: Limited and based on my review of the available electronic health records. He has a history of chronic kidney disease. I do not know what his baseline patient's creatinine is. He has history of stroke with quadriplegia. He has history of neurogenic bladder, history of diabetes, recurrent urinary tract infections and cachexia. SOCIAL HISTORY: Negative for drug use, use of tobacco. He resides in a long-term care facility. FAMILY HISTORY: Not available. MEDICATIONS AT HOSPITAL: Includes enoxaparin, acetaminophen, nitroglycerin, morphine, atorvastatin, furosemide, tamsulosin, ceftriaxone, carvedilol, hydralazine, nifedipine and insulin. PHYSICAL EXAMINATION: VITAL SIGNS: Blood pressure is 99/66, heart rate 70, respirations 16, temperature 96.5. GENERAL: The patient is an adult gentleman who appears to be chronically emaciated, bedbound, quadriplegic. HEENT: Shows a pale mucosa and conjunctivae. There is mild uterus. There is no jugular venous distention. Oral mucosa is very dry. LUNGS: Clear to auscultation. CARDIOVASCULAR: Regular rate. There is 2/6 systolic murmur. ABDOMEN: Soft, excavated. Bowel sounds are diminished in intensity and frequency. No organomegaly or ascites. EXTREMITIES: Show no clubbing, cyanosis. There is no ankle edema. NEUROLOGIC: There is generalized muscular atrophy and quadriplegia. LABORATORY FINDINGS: WBC initially was 23,000, it is coming down. Today is 15,000. Hemoglobin is 7.3, platelet count 114. Sodium 146, potassium 4.7, bicarbonate 18, BUN 164, creatinine on admission was 4.6. Most recent creatinine is 3.8. ASSESSMENT AND PLAN: * Acute kidney injury, likely related to dehydration. * Underlying chronic kidney disease. * Hypernatremia. * Metabolic acidosis. * Cachexia. * Obstructive uropathy, neurogenic bladder. * Encephalopathy and uremia. * Severe anemia. * Quadriplegia. * Malfunction of feeding tube. The plan is to aggressively replace intravenous fluids with isotonic saline initially and subsequently with half-normal saline with dextrose water. We should start him on oral bicarbonate. Keep the Lindsay catheter. Keep two doses of loop diuretic in the next 24 hours to maintain urine output above oliguric range. Replace electrolytes if needed. Dietary senior counsel. Increase protein intake. At this point, I do not see any urgent need for renal replacement therapy. Hopefully, his renal failure will continue to improve. We will follow him closely. Thank you for the consultation. MD KESHA Urban/KRIS/SAURABH TID: [id number] RECEIPT: [id number]
[2025-06-20] MEDS: BUMETANIDE 2.5mg/10ml (0.25 mg/ml) INJ IV SCH (17:50)
[2025-06-20] MEDS: SODIUM BICARBONATE 650 MG TAB PO SCH (22:40)
[2025-06-21] VITALS (14 sets, daily range): BP systolic 96–129; BP diastolic 51–93; PULSE 0–85; RESP 16–22; TEMP 97.2–98.7; O2SAT 93–98
[2025-06-21 07:30] LABS: Mean Corpuscular Hemoglobin 28.6 pg (28.0-32.0)
[2025-06-21 07:32] LABS: Hematocrit 20.6 % (41.0-53.0); Mean Corpuscular Volume 90.1 fL (80.0-100.0); Nucleated Red Blood Cells % 0.3 %
[2025-06-21 07:37] LABS: Hemoglobin 6.5 g/dL (13.5-17.5)
[2025-06-21 07:38] LABS: Chloride 106 mmol/L (98-107); Potassium 3.5 mmol/L (3.5-5.1)
[2025-06-21 07:39] LABS: Anion Gap 14 (5-15)
[2025-06-21 07:44] LABS: BUN/Creatinine Ratio 37.0 (10.0-20.0)
[2025-06-21 07:45] LABS: Magnesium 1.8 mg/dL (1.6-2.6)
[2025-06-21 07:48] LABS: Calcium 6.5 mg/dL (8.7-10.4); Carbon Dioxide 16 mmol/L (20-31); Glucose 119 mg/dL (74-106); Sodium 136 mmol/L (136-145)
[2025-06-21 07:49] LABS: Blood Urea Nitrogen 134 mg/dL (9-23)
[2025-06-21 07:53] LABS: Anisocytosis Slight; Tear Drop Cells FEW
--- NOTE | 2025-06-21 13:38 | DVHPN2 ---
Progress Note - Dictate Date Seen: Jun 21, 2025 Medical Necessity Reason Pt with a Central, PICC or Fol: No Subjective Patient is seen at bedside. Blood transfusion in progress. vital signs Vital Sign Date Time Temp Pulse Resp B/P (MAP) Pulse Ox O2 Delivery O2 Flow Rate FiO2 06/21/25 12:32 98.1 77 20 115/85 (95) 97 98.1 06/21/25 08:17 Room Air* 0 21 Total Intake and Output 06/20/25 06/20/25 06/21/25 15:00 23:00 07:00 Intake Total 50 ml 0 ml 1000 ml Output Total 100 ml 750 ml Balance 50 ml -100 ml 250 ml medications Current Medications Medications Dose Ordered Sig/Wai Route Start Time Stop Time Status Last Admin Dose Admin Enoxaparin Sodium 40 mg DAILY SC 06/17/25 10:00 UNV Acetaminophen 650 mg Q6HP PRN PO 06/17/25 07:45 Morphine Sulfate 2 mg Q4HPRN PRN IV 06/17/25 07:45 Nitroglycerin 0.4 mg Q5MINP PRN SL 06/17/25 07:45 Morphine Sulfate 2 mg Q30M PRN IV 06/17/25 07:45 Atorvastatin Calcium 20 mg HS PO 06/17/25 22:00 06/20/25 22:40 20 MG Furosemide 40 mg DAILY PO 06/17/25 10:00 Cancel Tamsulosin HCl 0.4 mg DAILY PO 06/17/25 10:00 06/21/25 11:46 0.4 MG Ceftriaxone Sodium 50 ml @ 100 mls/hr DAILY@09 IV 06/17/25 09:00 06/21/25 08:47 100 MLS/HR Carvedilol 6.25 mg Q12HR PO 06/17/25 10:00 06/19/25 09:21 6.25 MG Hydralazine HCl 10 mg Q6HR IV 06/17/25 12:00 06/20/25 12:51 10 MG Diagnostic Test (Pha) 1 strip ACHS 06/17/25 12:45 06/21/25 11:46 1 STRIP Insulin Human Regular ACHS SC 06/17/25 12:45 06/21/25 12:09 3 UNITS Dextrose 50 ml UD PRN IV 06/17/25 12:45 Iron Sucrose 110 ml @ 110 mls/hr DAILY@1200 IV 06/18/25 12:00 06/22/25 12:59 06/21/25 13:29 110 MLS/HR Amlodipine Besylate 10 mg DAILY GT 06/18/25 10:00 06/19/25 09:22 10 MG Mupirocin 1 applic BID EACHNOSTRI 06/18/25 22:00 06/23/25 21:59 06/21/25 09:53 1 APPLIC Sodium Chloride 1,000 ml @ 100 mls/hr Q10H IV 06/20/25 13:30 06/21/25 09:53 100 MLS/HR Bumetanide 2.5 mg BIDD IV 06/20/25 18:00 06/21/25 06:18 2.5 MG Sodium Bicarbonate 650 mg BID PO 06/20/25 22:00 06/21/25 11:45 650 MG Enteral Nutritional Formula 1,000 ml 25ML/HR GT 06/21/25 08:45 objective Patient is arousable HEENT: Normocephalic Lungs: Bilateral diffuse rhonchi CVS: S1, S2 regular rate rhythm Abdomen: Soft Extremities: No edema BETTING CLERKS: Quadriplegic as per history laboratory and microbiology Laboratory Tests 06/21/25 06:54 Test 06/21/25 06:54 Range/Units Serum Glucose 119 H 74-106 mg/dL Problem List * Acute kidney injury with a disproportionate increase in BUN probably s econdary to GI bleed * Underlying chronic kidney disease4 * Hypernatremia. * Metabolic acidosis. * Cachexia. * Obstructive uropathy, neurogenic bladder. Patient has a indwelling Lindsay catheter * Encephalopathy and uremia. * Severe anemia. * Quadriplegia. * Malfunction of feeding tube. Assessment/Plan GFR has shown improvement. Discontinue IV fluids. Patient being transfused. Bumex 2 mg IV x1 after transfusion. Patient's baseline creatinine is around 3.2. Has been with a history his mother had refused dialysis and had wanted him to be on hospice. Prognosis guarded Dietary Evaluation Review Comments: 1. TPN per pharmacy to meet pt's needs @ 100%. 2. When GT available, TF Nepro @25ml/hr (49g Protein 1062 kcal 436ml water) plus Dextrose 5% for an addition 200 kcal 3. continue iron supplementation 4. Reassess in 3-5 days Expected Outcomes/Goals: imprvoed nutrition status, avoid uremic symptoms, gradual wt gains. Plan discussed with: Other CC Plasma Assessment Blood Product Administration S: [id number] RAÚL YOST MD Jun 21, 2025 13:38
[2025-06-21] MEDS: BUMETANIDE 2.5mg/10ml (0.25 mg/ml) INJ IV ONE (14:47)
[2025-06-21] MEDS: PANTOPRAZOLE 40 MG/10 ML VIAL INJ IV SCH (15:32)
--- NOTE | 2025-06-21 17:08 | DVHPN2 ---
Progress Note Date Seen: Jun 21, 2025 Resident Creating Document: DOMINGUEZ AGUILERA RESIDENT Has the PT tested + for MRSA If YES, has PT been informed?: No Medical Necessity Reason Pt with a Central, PICC or Fol: Yes The following are medically ne: Smith Catheter Reason for smith catheter: Bladder Retention/Obstruc Subjective Review of Systems No new complaints, patient is resting comfortably at bedside A 16 S[place] gastrostomy tube was placed through the previous gastrostomy opening yesterday by Dr. Layo Verdin Patient's postprocedure x-ray yesterday appears to have been done without Gastrografin so placement of the tube could not be confirmed 06/21/25 44-year-old male with multiple comorbidities, PEG tube dependency, recent upper endoscopy (last week), and ongoing antibiotic therapy for infection. Today, Hgb dropped to 6.5 g/dL (Hct 20.6%). Two units of PRBC transfused with good tolerance. No hematemesis, melena, or hematochezia reported. No active bleeding noted. PEG tube feeds ongoing; placement confirmed radiographically. Mild drainage noted around the PEG site with flushes flowing appropriately. Local wound care continues. Stool occult ordered. Patient remains afebrile, denies abdominal pain, nausea, vomiting, or GI bleeding symptoms. ROS * GI: No abdominal pain, nausea, vomiting, hematemesis, melena, or hematochezia. Mild PEG site drainage. * Constitutional: No fever, chills, or weight loss. * Other systems reviewed and negative. Objective vital signs Vital Sign Date Time Temp Pulse Resp B/P (MAP) Pulse Ox O2 Delivery O2 Flow Rate FiO2 06/21/25 16:35 98.7 83 22 117/93 (101) 96 98.7 06/21/25 08:17 Room Air* 0 21 Total Intake and Output 06/20/25 06/20/25 06/21/25 15:00 23:00 07:00 Intake Total 50 ml 0 ml 1000 ml Output Total 100 ml 750 ml Balance 50 ml -100 ml 250 ml medications Current Medications Medications Dose Ordered Sig/Wai Route Start Time Stop Time Status Last Admin Dose Admin Enoxaparin Sodium 40 mg DAILY SC 06/17/25 10:00 UNV Acetaminophen 650 mg Q6HP PRN PO 06/17/25 07:45 Morphine Sulfate 2 mg Q4HPRN PRN IV 06/17/25 07:45 Nitroglycerin 0.4 mg Q5MINP PRN SL 06/17/25 07:45 Morphine Sulfate 2 mg Q30M PRN IV 06/17/25 07:45 Atorvastatin Calcium 20 mg HS PO 06/17/25 22:00 06/20/25 22:40 20 MG Furosemide 40 mg DAILY PO 06/17/25 10:00 Cancel Tamsulosin HCl 0.4 mg DAILY PO 06/17/25 10:00 06/21/25 11:46 0.4 MG Ceftriaxone Sodium 50 ml @ 100 mls/hr DAILY@09 IV 06/17/25 09:00 06/21/25 08:47 100 MLS/HR Carvedilol 6.25 mg Q12HR PO 06/17/25 10:00 06/19/25 09:21 6.25 MG Hydralazine HCl 10 mg Q6HR IV 06/17/25 12:00 06/20/25 12:51 10 MG Diagnostic Test (Pha) 1 strip ACHS 06/17/25 12:45 06/21/25 11:46 1 STRIP Insulin Human Regular ACHS SC 06/17/25 12:45 06/21/25 12:09 3 UNITS Dextrose 50 ml UD PRN IV 06/17/25 12:45 Iron Sucrose 110 ml @ 110 mls/hr DAILY@1200 IV 06/18/25 12:00 06/22/25 12:59 06/21/25 13:29 110 MLS/HR Amlodipine Besylate 10 mg DAILY GT 06/18/25 10:00 06/19/25 09:22 10 MG Mupirocin 1 applic BID EACHNOSTRI 06/18/25 22:00 06/23/25 21:59 06/21/25 09:53 1 APPLIC Bumetanide 2.5 mg BIDD IV 06/20/25 18:00 06/21/25 06:18 2.5 MG Sodium Bicarbonate 650 mg BID PO 06/20/25 22:00 06/21/25 11:45 650 MG Enteral Nutritional Formula 1,000 ml 25ML/HR GT 06/21/25 08:45 Pantoprazole Sodium 40 mg BID IV 06/21/25 15:15 06/21/25 15:32 40 MG Albuterol 2.5 mg Q4HPRN PRN NEB 06/21/25 16:45 UNV Examination * General: Alert, pale, no acute distress. * Abdomen: Soft, non-tender, no organomegaly, PEG tube in place with mild vickey- stomal drainage, no erythema or induration. No guarding or rebound. Bowel sounds present. * Stool: Not tested today; stool occult ordered. * Other systems: Unremarkable. laboratory and microbiology Laboratory Tests 06/21/25 06:54 Test 06/21/25 06:54 Range/Units Serum Glucose 119 H 74-106 mg/dL Microbiology Date/Time Source Procedure Growth Status 06/17/25 15:20 Blood Blood Culture - Preliminary NO GROWTH AFTER 72 HOURS OF INCUBATION. Resulted 06/17/25 10:58 Nose MRSA Screen - Final Methicillin Resistant S.aureus Complete Problem List/Assessment/Plan Problems(with codes): (1) Acute on chronic anemia (2) UTI (urinary tract infection) (3) Encounter for gastrojejunal tube placement (4) Acute prerenal azotemia Problem List/Assessment/Plan 1. Encounter for gastrojejunal tube placement (2) UTI (urinary tract infection) (3) Acute prerenal azotemia 4.Severe Acute on Chronic Anemia Hgb 6.5, transfused 2 PRBC units, no active GI bleed, stool occult pending. 5. PEG Tube with Mild Peristomal Drainage and Local Infection Risk Placement confirmed by imaging, wound culture pending. 6.Upper GI Bleeding ruled out (recent EGD last week, no current signs of bleed, patient on PPI therapy). 7. Malnutrition (PEG dependent) receiving enteral nutrition, continue support. System-Cool GI Plan Gastrointestinal System: * Anemia: * Monitor CBC with H&H q12h post-transfusion. * Continue PPI (Pantoprazole 40 mg IV BID). * Stool occult to assess for ongoing GI bleed. * If anemia persists consider repeat EGD/colonoscopy. * PEG Tube Site Infection: * Continue IV ceftriaxone, adjust per culture results. * Local care with hydrogen peroxide and dry dressing. * Wound culture ordered; tailor antibiotics to sensitivities. * Nutrition: * Continue Nepro feeds @ 25 mL/hr via PEG as tolerated. * Monitor electrolytes, especially calcium, and replete as needed. * Dietitian follow-up for caloric optimization. Dietary Evaluation Review Comments: 1. TPN per pharmacy to meet pt's needs @ 100%. 2. When GT available, TF Nepro @25ml/hr (49g Protein 1062 kcal 436ml water) plus Dextrose 5% for an addition 200 kcal 3. continue iron supplementation 4. Reassess in 3-5 days Expected Outcomes/Goals: imprvoed nutrition status, avoid uremic symptoms, gradual wt gains. Plan discussed with: Patient, Other (Nurse) Plan discussed with: Patient My Orders My Orders Orders - DOMINGUEZ AGUILERA RESIDENT Procedure Category Date Status Time Wound Culture W/ Gs JENNIFER 06/21/25 In Process 16:21 Wound Dressing: TERESA 06/21/25 In Process 16:13 Hemoglobin & LAB 06/21/25 Logged Hematocrit 22:00 Hemoglobin & LAB 06/22/25 Verified Hematocrit 10:00 Hemoglobin & LAB 06/22/25 Verified Hematocrit 22:00 Hemoglobin & LAB 06/23/25 Verified Hematocrit 10:00 Hemoglobin & LAB 06/23/25 Verified Hematocrit 22:00 Stool Occult Blood LAB 06/21/25 Logged 16:18 Dietary Evaluation Review Comments: 1. TPN per pharmacy to meet pt's needs @ 100%. 2. When GT available, TF Nepro @25ml/hr (49g Protein 1062 kcal 436ml water) plus Dextrose 5% for an addition 200 kcal 3. continue iron supplementation 4. Reassess in 3-5 days Expected Outcomes/Goals: imprvoed nutrition status, avoid uremic symptoms, gradual wt gains. CC Plasma Assessment Blood Product Administration S: [id number] DOMINGUEZ AGUILERA RESIDENT Jun 21, 2025 17:08
--- NOTE | 2025-06-21 17:38 | DVH ---
CHEST RADIOGRAPH REASON FOR EXAM: Shortness of breath COMPARISON: XY CHEST PORTABLE on DOS: 06/19/25, XY CHEST PORTABLE on DOS: 06/17/25, XY CHEST XRAY 1 VIE W on DOS: 05/23/25, XY CHEST PORTABLE on DOS: 05/21/25, XY CHEST PORTABLE on DOS: 05/19/25 TECHNIQUE: One view of the chest is provided FINDINGS: Evaluation is degraded by patient positioning. The cardiomediastinal silhouette appears st able in size. There is increased scattered airspace opacity bilaterally, possibly worsened by low ins piratory volume on the current study. There is no large pleural effusion. There is no pneumothorax. N o acute fracture is identified. IMPRESSION: Increased scattered airspace opacity bilaterally. This may be secondary to the decreased inspiratory volume on the current study.
--- NOTE | 2025-06-21 21:35 | DVHPN2 ---
Progress Note - Dictate Date Seen: Jun 21, 2025 Has the PT tested + for MRSA If YES, has PT been informed?: No Medical Necessity Reason Pt with a Central, PICC or Fol: Yes The following are medically ne: Smith Catheter Reason for smith catheter: Bladder Retention/Obstruc vital signs Vital Sign Date Time Temp Pulse Resp B/P (MAP) Pulse Ox O2 Delivery O2 Flow Rate FiO2 06/21/25 21:00 97.2 70 18 114/79 (91) 97 97.2 06/21/25 19:41 Nasal Cannula 2.0 06/21/25 19:41 28 Total Intake and Output 06/20/25 06/20/25 06/21/25 15:00 23:00 07:00 Intake Total 50 ml 0 ml 1000 ml Output Total 100 ml 750 ml Balance 50 ml -100 ml 250 ml medications Current Medications Medications Dose Ordered Sig/Wai Route Start Time Stop Time Status Last Admin Dose Admin Enoxaparin Sodium 40 mg DAILY SC 06/17/25 10:00 UNV Acetaminophen 650 mg Q6HP PRN PO 06/17/25 07:45 Morphine Sulfate 2 mg Q4HPRN PRN IV 06/17/25 07:45 Nitroglycerin 0.4 mg Q5MINP PRN SL 06/17/25 07:45 Morphine Sulfate 2 mg Q30M PRN IV 06/17/25 07:45 Atorvastatin Calcium 20 mg HS PO 06/17/25 22:00 06/20/25 22:40 20 MG Furosemide 40 mg DAILY PO 06/17/25 10:00 Cancel Tamsulosin HCl 0.4 mg DAILY PO 06/17/25 10:00 06/21/25 11:46 0.4 MG Ceftriaxone Sodium 50 ml @ 100 mls/hr DAILY@09 IV 06/17/25 09:00 06/21/25 08:47 100 MLS/HR Carvedilol 6.25 mg Q12HR PO 06/17/25 10:00 06/19/25 09:21 6.25 MG Hydralazine HCl 10 mg Q6HR IV 06/17/25 12:00 06/20/25 12:51 10 MG Diagnostic Test (Pha) 1 strip ACHS 06/17/25 12:45 06/21/25 17:17 1 STRIP Insulin Human Regular ACHS SC 06/17/25 12:45 06/21/25 12:09 3 UNITS Dextrose 50 ml UD PRN IV 06/17/25 12:45 Iron Sucrose 110 ml @ 110 mls/hr DAILY@1200 IV 06/18/25 12:00 06/22/25 12:59 06/21/25 13:29 110 MLS/HR Amlodipine Besylate 10 mg DAILY GT 06/18/25 10:00 06/19/25 09:22 10 MG Mupirocin 1 applic BID EACHNOSTRI 06/18/25 22:00 06/23/25 21:59 06/21/25 09:53 1 APPLIC Bumetanide 2.5 mg BIDD IV 06/20/25 18:00 06/21/25 06:18 2.5 MG Sodium Bicarbonate 650 mg BID PO 06/20/25 22:00 06/21/25 11:45 650 MG Enteral Nutritional Formula 1,000 ml 25ML/HR GT 06/21/25 08:45 Pantoprazole Sodium 40 mg BID IV 06/21/25 15:15 06/21/25 15:32 40 MG Albuterol 2.5 mg Q4HPRN PRN NEB 06/21/25 16:45 objective General Appearance: alert, no distress HEENT: EOMI, PERRLA, normal external inspect of ears, no icterus, no nasal drainage Neck: no carotid bruit, no jugular venous distention (JVD), no lymphadenopathy Chest: normal thorax Respiratory: clear to auscultation, normal air movement Cardiovascular: regular rate and rhythm, no diastolic murmur, no jugular venous distention (JVD), no rub, no systolic murmur Abdominal: soft, no hepatomegaly, no mass, no splenomegaly, no tenderness Genitourinary: grossly normal external Musculoskeletal: no joint tenderness, no swelling Extremities: normal pulses, no calf tenderness, no clubbing, no cyanosis, no edema Skin: no bruising, no jaundice, no rash Neurological: alert, No focal deficit laboratory and microbiology Laboratory Tests 06/21/25 06:54 Test 06/21/25 06:54 Range/Units Serum Glucose 119 H 74-106 mg/dL Problem List 1. Dislodged G-tube GI consult for replacement, IV fluids, monitor 2. Sepsis due to acute cystitis IV antibiotics, IV fluids, monitor blood cultures, monitor 3. Type 2 diabetes with hyperglycemia Insulin sliding scale, monitor 4. Anemia of chronic disease IV iron, monitor 5. Pleural effusion Monitor 6. History of CVA Monitor 7. Hypertensive urgency Antihypertensives, monitor 8. LISANDRO with ATN on CKD 3B IV fluids, nephrology consult, monitor 9. Hypernatremia Monitor CMP, monitor 10. sever protein deficiency Monitor Assessment/Plan Subjective Patient's mentation is at his baseline. Objective Patient has a history of a CVA. Patient is able to speak several words at a time. Patient has a resolving LISANDRO. Patient has fluid overload today. Patient was given one dose of Bumex. Patient also was septic with a UTI. Patient has a chronic Smith catheter. UTI is related to chronic Smith catheter. Patient was given a recephen. Urine culture is still pending. Patient did pass his swallow eval today and he was started on a pureed diet. Patient has acute on chronic anemia. Hemoglobin is 8.2 status post one unit transfusion. Plan Obtain chest X-ray. Start breathing treatment. Give PRN diuretics. Monitor daily CBC for anemia. Continue antibiotics for sepsis with UTI. Dietary Evaluation Review Comments: 1. TPN per pharmacy to meet pt's needs @ 100%. 2. When GT available, TF Nepro @25ml/hr (49g Protein 1062 kcal 436ml water) plus Dextrose 5% for an addition 200 kcal 3. continue iron supplementation 4. Reassess in 3-5 days Expected Outcomes/Goals: imprvoed nutrition status, avoid uremic symptoms, gradual wt gains. Plan discussed with: Patient, Other CC Plasma Assessment Blood Product Administration S: [id number] RAÚL STEEL NP Jun 21, 2025 21:35
[2025-06-21 22:16] LABS: Hematocrit 33.2 % (41.0-53.0); Hemoglobin 10.4 g/dL (13.5-17.5)
[2025-06-22] VITALS (14 sets, daily range): BP systolic 109–120; BP diastolic 70–86; PULSE 70–80; RESP 14–20; TEMP 96.5–98.1; O2SAT 95–100
[2025-06-22 10:43] LABS: Hematocrit 28.5 % (41.0-53.0); Hemoglobin 9.3 g/dL (13.5-17.5)
--- NOTE | 2025-06-22 12:02 | DVHPN2 ---
Progress Note - Dictate Date Seen: Jun 22, 2025 Has the PT tested + for MRSA If YES, has PT been informed?: No Medical Necessity Reason Pt with a Central, PICC or Fol: Yes The following are medically ne: Smith Catheter Reason for smith catheter: Bladder Retention/Obstruc vital signs Vital Sign Date Time Temp Pulse Resp B/P (MAP) Pulse Ox O2 Delivery O2 Flow Rate FiO2 06/22/25 10:00 111/73 06/22/25 10:00 74 06/22/25 09:00 98.1 20 100 98.1 06/22/25 07:30 Nasal Cannula 1.0 06/22/25 07:30 24 Total Intake and Output 06/21/25 06/21/25 06/22/25 15:00 23:00 07:00 Intake Total 950 ml 0 ml 0 ml Output Total 200 ml 200 ml Balance 950 ml -200 ml -200 ml medications Current Medications Medications Dose Ordered Sig/Wai Route Start Time Stop Time Status Last Admin Dose Admin Enoxaparin Sodium 40 mg DAILY SC 06/17/25 10:00 UNV Acetaminophen 650 mg Q6HP PRN PO 06/17/25 07:45 Morphine Sulfate 2 mg Q4HPRN PRN IV 06/17/25 07:45 Nitroglycerin 0.4 mg Q5MINP PRN SL 06/17/25 07:45 Morphine Sulfate 2 mg Q30M PRN IV 06/17/25 07:45 Atorvastatin Calcium 20 mg HS PO 06/17/25 22:00 06/21/25 22:26 20 MG Furosemide 40 mg DAILY PO 06/17/25 10:00 Cancel Tamsulosin HCl 0.4 mg DAILY PO 06/17/25 10:00 06/22/25 11:13 0.4 MG Ceftriaxone Sodium 50 ml @ 100 mls/hr DAILY@09 IV 06/17/25 09:00 06/22/25 11:10 100 MLS/HR Carvedilol 6.25 mg Q12HR PO 06/17/25 10:00 06/19/25 09:21 6.25 MG Hydralazine HCl 10 mg Q6HR IV 06/17/25 12:00 06/20/25 12:51 10 MG Diagnostic Test (Pha) 1 strip ACHS 06/17/25 12:45 06/22/25 11:54 1 STRIP Insulin Human Regular ACHS SC 06/17/25 12:45 06/22/25 11:54 2 UNITS Dextrose 50 ml UD PRN IV 06/17/25 12:45 Iron Sucrose 110 ml @ 110 mls/hr DAILY@1200 IV 06/18/25 12:00 06/22/25 12:59 06/21/25 13:29 110 MLS/HR Amlodipine Besylate 10 mg DAILY GT 06/18/25 10:00 06/19/25 09:22 10 MG Mupirocin 1 applic BID EACHNOSTRI 06/18/25 22:00 06/23/25 21:59 06/22/25 11:42 1 APPLIC Bumetanide 2.5 mg BIDD IV 06/20/25 18:00 06/22/25 06:04 2.5 MG Sodium Bicarbonate 650 mg BID PO 06/20/25 22:00 06/22/25 11:07 650 MG Enteral Nutritional Formula 1,000 ml 25ML/HR GT 06/21/25 08:45 Pantoprazole Sodium 40 mg BID IV 06/21/25 15:15 06/22/25 11:07 40 MG Albuterol 2.5 mg Q4HPRN PRN NEB 06/21/25 16:45 objective General Appearance: alert, no distress HEENT: EOMI, PERRLA, normal external inspect of ears, no icterus, no nasal drainage Neck: no carotid bruit, no jugular venous distention (JVD), no lymphadenopathy Chest: normal thorax Respiratory: clear to auscultation, normal air movement Cardiovascular: regular rate and rhythm, no diastolic murmur, no jugular venous distention (JVD), no rub, no systolic murmur Abdominal: soft, no hepatomegaly, no mass, no splenomegaly, no tenderness Genitourinary: grossly normal external Musculoskeletal: no joint tenderness, no swelling Extremities: normal pulses, no calf tenderness, no clubbing, no cyanosis, no edema Skin: no bruising, no jaundice, no rash Neurological: alert, No focal deficit laboratory and microbiology Laboratory Tests 06/22/25 10:17 06/21/25 06:54 Test 06/21/25 06:54 Range/Units Serum Glucose 119 H 74-106 mg/dL Problem List 1. Dislodged G-tube GI consult for replacement, IV fluids, monitor 2. Sepsis due to acute cystitis IV antibiotics, IV fluids, monitor blood cultures, monitor 3. Type 2 diabetes with hyperglycemia Insulin sliding scale, monitor 4. Anemia of chronic disease IV iron, monitor 5. Pleural effusion Monitor 6. History of CVA Monitor 7. Hypertensive urgency Antihypertensives, monitor 8. LISANDRO with ATN on CKD 3B IV fluids, nephrology consult, monitor 9. Hypernatremia Monitor CMP, monitor 10. sever protein deficiency Monitor Assessment/Plan Subjective Patient mentation appears to be at her baseline. Objective Patient has a resolving LISANDRO. Bumex was given yesterday. Patient's lungs sound more clear. Hemoglobin is 9.3. Patient was admitted for severe acute on chronic anemia. Patient received blood. Patient was septic with a UTI related to chronic Smith catheter. Patient was admitted for dislodged G-tube. Plan Continue current tube feeding. Patient is tolerating well. Patient passed swallow eval. Continue pured diet as tolerated. Aspiration precautions. Continue antibiotics. Repeat BMP is pending. front services agent consult. Renew hospice. Discharge planning Dietary Evaluation Review Comments: 1. TPN per pharmacy to meet pt's needs @ 100%. 2. When GT available, TF Nepro @25ml/hr (49g Protein 1062 kcal 436ml water) plus Dextrose 5% for an addition 200 kcal 3. continue iron supplementation 4. Reassess in 3-5 days Expected Outcomes/Goals: imprvoed nutrition status, avoid uremic symptoms, gradual wt gains. Plan discussed with: Patient, Other CC Plasma Assessment Blood Product Administration S: [id number] RAÚL STEEL NP Jun 22, 2025 12:02
[2025-06-22] MEDS: ALBUTEROL SULF 2.5 MG/0.5ML(0.5%) NEB SOLN NEB PRN (12:37)
--- NOTE | 2025-06-22 13:37 | DVHPN2 ---
Progress Note Date Seen: Jun 22, 2025 Resident Creating Document: DOMINGUEZ AGUILERA RESIDENT Has the PT tested + for MRSA If YES, has PT been informed?: No Medical Necessity Reason Pt with a Central, PICC or Fol: Yes The following are medically ne: Smith Catheter Reason for smith catheter: Bladder Retention/Obstruc Subjective Review of Systems 06/22/25 The patient is a 44-year-old male with multiple comorbidities including PEG tube dependency, anemia, and chronic infection risks. He was examined at bedside today. The PEG tube site shows mild persistent purulent drainage but has improved compared to yesterday. Dressing remains dry and intact; site is being cleaned with hydrogen peroxide and dry dressings applied. Flushes are patent, feeds continue. The patient had a loose bowel movement this morning without visible blood. He denies abdominal pain, hematemesis, or melena. No nausea or vomiting. Hemoglobin has slightly decreased from 10.4 g/dL (yesterday) to 9.3 g/dL today, hematocrit 28.5%. No overt GI bleeding noted. WBC remains elevated (17.4 yesterday), raising concern for ongoing infection. Wound culture from the PEG site shows yeast growth; further pathogen identification pending. MRSA detected from nasal screen. The patient is also septic from a UTI related to chronic Smith catheter (urine culture pending). He is receiving IV ceftriaxone. Brief Summary of Todays Progress * PEG site drainage improved; wound culture shows moderate yeast. * Enteral feeding via PEG continues with good tolerance. * H&H decreased but stable; no overt GI bleed. * Sepsis from UTI managed with ceftriaxone; urine culture pending. * Fluid overload treated with Bumetanide. * Anemia acute on chronic, transfused earlier, monitoring H&H. * Diet: patient passed swallow evaluation, started on pureed diet. ROS * GI: Loose stools (non-bloody), no hematemesis, no melena, no abdominal pain, no distension. * Constitutional: Afebrile, reports mild fatigue. * Other systems: Non-contributory for GI perspective. Objective vital signs Vital Sign Date Time Temp Pulse Resp B/P (MAP) Pulse Ox O2 Delivery O2 Flow Rate FiO2 06/22/25 12:52 97.8 80 20 117/76 (90) 98 97.8 06/22/25 12:37 Nasal Cannula* 1 24 Total Intake and Output 06/21/25 06/21/25 06/22/25 15:00 23:00 07:00 Intake Total 950 ml 0 ml 0 ml Output Total 200 ml 200 ml Balance 950 ml -200 ml -200 ml medications Current Medications Medications Dose Ordered Sig/Wai Route Start Time Stop Time Status Last Admin Dose Admin Enoxaparin Sodium 40 mg DAILY SC 06/17/25 10:00 UNV Acetaminophen 650 mg Q6HP PRN PO 06/17/25 07:45 Morphine Sulfate 2 mg Q4HPRN PRN IV 06/17/25 07:45 Nitroglycerin 0.4 mg Q5MINP PRN SL 06/17/25 07:45 Morphine Sulfate 2 mg Q30M PRN IV 06/17/25 07:45 Atorvastatin Calcium 20 mg HS PO 06/17/25 22:00 06/21/25 22:26 20 MG Furosemide 40 mg DAILY PO 06/17/25 10:00 Cancel Tamsulosin HCl 0.4 mg DAILY PO 06/17/25 10:00 06/22/25 11:13 0.4 MG Ceftriaxone Sodium 50 ml @ 100 mls/hr DAILY@09 IV 06/17/25 09:00 06/22/25 11:10 100 MLS/HR Carvedilol 6.25 mg Q12HR PO 06/17/25 10:00 06/19/25 09:21 6.25 MG Hydralazine HCl 10 mg Q6HR IV 06/17/25 12:00 06/20/25 12:51 10 MG Diagnostic Test (Pha) 1 strip ACHS 06/17/25 12:45 06/22/25 11:54 1 STRIP Insulin Human Regular ACHS SC 06/17/25 12:45 06/22/25 11:54 2 UNITS Dextrose 50 ml UD PRN IV 06/17/25 12:45 Amlodipine Besylate 10 mg DAILY GT 06/18/25 10:00 06/19/25 09:22 10 MG Mupirocin 1 applic BID EACHNOSTRI 06/18/25 22:00 06/23/25 21:59 06/22/25 11:42 1 APPLIC Bumetanide 2.5 mg BIDD IV 06/20/25 18:00 06/22/25 06:04 2.5 MG Sodium Bicarbonate 650 mg BID PO 06/20/25 22:00 06/22/25 11:07 650 MG Enteral Nutritional Formula 1,000 ml 25ML/HR GT 06/21/25 08:45 Pantoprazole Sodium 40 mg BID IV 06/21/25 15:15 06/22/25 11:07 40 MG Albuterol 2.5 mg Q4HPRN PRN NEB 06/21/25 16:45 06/22/25 12:37 2.5 MG Examination hysical Examination (GI Focused) * General: Alert, not in distress. * Abdomen: Soft, non-tender, no organomegaly. * PEG Tube Site: Tube in place, mild purulent drainage, no erythema or fluctuance, dressing clean and dry. * Bowel Sounds: Normoactive. * Stool: Loose, non-bloody. * Other: No jaundice, no ascites. laboratory and microbiology Laboratory Tests 06/22/25 10:17 06/21/25 06:54 Test 06/21/25 06:54 Range/Units Serum Glucose 119 H 74-106 mg/dL Microbiology Date/Time Source Procedure Growth Status 06/21/25 16:15 Abdomen Gram Stain - Final Resulted 06/21/25 16:15 Abdomen Wound Culture - Preliminary Resulted 06/17/25 15:20 Blood Blood Culture - Preliminary NO GROWTH AFTER 72 HOURS OF INCUBATION. Resulted Problem List/Assessment/Plan Problems(with codes): (1) UTI (urinary tract infection) (2) Acute prerenal azotemia (3) Acute on chronic anemia (4) Encounter for gastrojejunal tube placement (5) Acute renal failure Problem List/Assessment/Plan 1. Encounter for gastrojejunal tube placement (2) UTI (urinary tract infection) (3) Acute prerenal azotemia 4.Severe Acute on Chronic Anemia Hgb 6.5, transfused 2 PRBC units, no active GI bleed, stool occult pending. 5. PEG Tube with Mild Peristomal Drainage and Local Infection Risk Placement confirmed by imaging, wound culture pending. 6.Upper GI Bleeding ruled out (recent EGD last week, no current signs of bleed, patient on PPI therapy). 7. Malnutrition (PEG dependent) receiving enteral nutrition, continue support. System-Cool GI Plan Gastrointestinal System: Severe Acute on Chronic Anemia Hgb 6.5, transfused 2 PRBC units, no active GI bleed, stool occult pending. 1. PEG Tube with Mild Peristomal Drainage and Local Infection Risk Placement confirmed by imaging, wound culture pending. 2. Upper GI Bleeding ruled out (recent EGD last week, no current signs of bleed, patient on PPI therapy). 3. Malnutrition (PEG dependent) receiving enteral nutrition, continue support. System-Cool GI Plan Gastrointestinal System: * Anemia: * Monitor CBC with H&H q12h post-transfusion. * Continue PPI (Pantoprazole 40 mg IV BID). * Stool occult to assess for ongoing GI bleed. * If anemia persists ? consider repeat EGD/colonoscopy. * PEG Tube Site Infection: * Continue IV ceftriaxone, adjust per culture results. * Continue local wound care: hydrogen peroxide cleansing BID, dry dressing. * Initiate topical antifungal (e.g., nystatin ointment) pending full wound culture. * If infection worsens, consider systemic antifungal therapy. * Monitor site daily for erythema, induration, or worsening drainage. * * Nutrition: * Monitor electrolytes, especially calcium, and replete as needed. * Continue Nepro at 25 mL/hr via PEG, titrate as tolerated. * Maintain pureed diet orally to supplement caloric intake. * Dietitian follow-up for optimization. * Monitor weight, albumin, prealbumin, and electrolytes. Dietary Evaluation Review Comments: 1. TPN per pharmacy to meet pt's needs @ 100%. 2. When GT available, TF Nepro @25ml/hr (49g Protein 1062 kcal 436ml water) plus Dextrose 5% for an addition 200 kcal 3. continue iron supplementation 4. Reassess in 3-5 days Expected Outcomes/Goals: imprvoed nutrition status, avoid uremic symptoms, gradual wt gains. Plan discussed with: Patient, Other (Nurse) Plan discussed with: Patient My Orders My Orders Orders - DOMINGUEZ AGUILERA RESIDENT Procedure Category Date Status Time Wound Culture W/ Gs JENNIFER 06/21/25 In Process 16:21 Wound Dressing: TERESA 06/21/25 In Process 16:13 Hemoglobin & LAB 06/22/25 Logged Hematocrit 22:00 Hemoglobin & LAB 06/23/25 Verified Hematocrit 10:00 Hemoglobin & LAB 06/23/25 Verified Hematocrit 22:00 Stool Occult Blood LAB 06/21/25 Logged 16:18 Dietary Evaluation Review Comments: 1. TPN per pharmacy to meet pt's needs @ 100%. 2. When GT available, TF Nepro @25ml/hr (49g Protein 1062 kcal 436ml water) plus Dextrose 5% for an addition 200 kcal 3. continue iron supplementation 4. Reassess in 3-5 days Expected Outcomes/Goals: imprvoed nutrition status, avoid uremic symptoms, gradual wt gains. CC Plasma Assessment Blood Product Administration S: [id number] DOMINGUEZ AGUILERA RESIDENT Jun 22, 2025 13:37
--- NOTE | 2025-06-22 16:22 | DVHPN2 ---
Progress Note - Dictate Date Seen: Jun 22, 2025 Has the PT tested + for MRSA If YES, has PT been informed?: No Medical Necessity Reason Pt with a Central, PICC or Fol: Yes The following are medically ne: Smith Catheter Reason for smith catheter: Bladder Retention/Obstruc Subjective Patient is seen at bedside. vital signs Vital Sign Date Time Temp Pulse Resp B/P (MAP) Pulse Ox O2 Delivery O2 Flow Rate FiO2 06/22/25 12:52 97.8 80 20 117/76 (90) 98 97.8 06/22/25 12:37 Nasal Cannula* 1 24 Total Intake and Output 06/21/25 06/21/25 06/22/25 15:00 23:00 07:00 Intake Total 950 ml 0 ml 0 ml Output Total 200 ml 200 ml Balance 950 ml -200 ml -200 ml medications Current Medications Medications Dose Ordered Sig/Wai Route Start Time Stop Time Status Last Admin Dose Admin Enoxaparin Sodium 40 mg DAILY SC 06/17/25 10:00 UNV Acetaminophen 650 mg Q6HP PRN PO 06/17/25 07:45 Morphine Sulfate 2 mg Q4HPRN PRN IV 06/17/25 07:45 Nitroglycerin 0.4 mg Q5MINP PRN SL 06/17/25 07:45 Morphine Sulfate 2 mg Q30M PRN IV 06/17/25 07:45 Atorvastatin Calcium 20 mg HS PO 06/17/25 22:00 06/21/25 22:26 20 MG Furosemide 40 mg DAILY PO 06/17/25 10:00 Cancel Tamsulosin HCl 0.4 mg DAILY PO 06/17/25 10:00 06/22/25 11:13 0.4 MG Ceftriaxone Sodium 50 ml @ 100 mls/hr DAILY@09 IV 06/17/25 09:00 06/22/25 11:10 100 MLS/HR Carvedilol 6.25 mg Q12HR PO 06/17/25 10:00 06/19/25 09:21 6.25 MG Hydralazine HCl 10 mg Q6HR IV 06/17/25 12:00 06/20/25 12:51 10 MG Diagnostic Test (Pha) 1 strip ACHS 06/17/25 12:45 06/22/25 11:54 1 STRIP Insulin Human Regular ACHS SC 06/17/25 12:45 06/22/25 11:54 2 UNITS Dextrose 50 ml UD PRN IV 06/17/25 12:45 Amlodipine Besylate 10 mg DAILY GT 06/18/25 10:00 06/19/25 09:22 10 MG Mupirocin 1 applic BID EACHNOSTRI 06/18/25 22:00 06/23/25 21:59 06/22/25 11:42 1 APPLIC Bumetanide 2.5 mg BIDD IV 06/20/25 18:00 06/22/25 06:04 2.5 MG Sodium Bicarbonate 650 mg BID PO 06/20/25 22:00 06/22/25 11:07 650 MG Enteral Nutritional Formula 1,000 ml 25ML/HR GT 06/21/25 08:45 Pantoprazole Sodium 40 mg BID IV 06/21/25 15:15 06/22/25 11:07 40 MG Albuterol 2.5 mg Q4HPRN PRN NEB 06/21/25 16:45 06/22/25 12:37 2.5 MG objective Patient is arousable HEENT: Normocephalic Lungs:good air entry bilaterally CVS: S1, S2 regular rate rhythm Abdomen: Soft Extremities: No edema 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 * Metabolic acidosis. * Cachexia. * Obstructive uropathy, neurogenic bladder. Patient has a indwelling Smith catheter * Encephalopathy and uremia. * Severe anemia. * Quadriplegia. * Malfunction of feeding tube. Assessment/Plan No labs for today Discontinued IV fluids. continue diuresis Patient's baseline creatinine is around 3.2. Increase sodium bicarbonate to 650 mg tid As per history his mother had refused dialysis and had wanted him to be on hospice. Prognosis guarded Dietary Evaluation Review Comments: 1. TPN per pharmacy to meet pt's needs @ 100%. 2. When GT available, TF Nepro @25ml/hr (49g Protein 1062 kcal 436ml water) plus Dextrose 5% for an addition 200 kcal 3. continue iron supplementation 4. Reassess in 3-5 days Expected Outcomes/Goals: imprvoed nutrition status, avoid uremic symptoms, gradual wt gains. Plan discussed with: Other CC Plasma Assessment Blood Product Administration S: 1202 RAÚL YOST MD Jun 22, 2025 16:22
[2025-06-22] MEDS: Nepro With Carb Steady 1 Liter Bottle GT SCH (16:44)
[2025-06-22] MEDS: SODIUM BICARBONATE 650 MG TAB PO SCH (21:58)
[2025-06-22 22:34] LABS: Hematocrit 25.3 % (41.0-53.0); Hemoglobin 8.3 g/dL (13.5-17.5)
[2025-06-23] VITALS (19 sets, daily range): BP systolic 103–134; BP diastolic 61–93; PULSE 70–90; RESP 16–22; TEMP 96.4–97.3; O2SAT 92–100
[2025-06-23 08:32] LABS: Chloride 105 mmol/L (98-107); Potassium 3.7 mmol/L (3.5-5.1); Sodium 136 mmol/L (136-145)
[2025-06-23 08:39] LABS: BUN/Creatinine Ratio 38.4 (10.0-20.0)
[2025-06-23 08:45] LABS: Anion Gap 15 (5-15); Carbon Dioxide 16 mmol/L (20-31); Glucose 72 mg/dL (74-106)
[2025-06-23 08:46] LABS: Blood Urea Nitrogen 141 mg/dL (9-23); Calcium 6.4 mg/dL (8.7-10.4)
--- NOTE | 2025-06-23 09:58 | DVHHP2 ---
Patient Family History: FH: diabetes mellitus FHx: stroke Allergies: Coded Allergies: NO KNOWN ALLERGIES (Unverified , 07/19/23) Home Meds Active Scripts Sodium Bicarbonate (Sodium Bicarbonate) 650 Mg Tab, 650 MG PO TID for 30 Days, #90 TAB Prov:[facility] 01/11/25 Furosemide (Furosemide) 40 Mg Tab, 40 MG PO DAILY for 30 Days, #30 TAB Prov:[facility] 01/11/25 Atorvastatin Calcium (ATORVASTATIN CALCIUM) 20 Mg Tab, 20 MG PO HS for 30 Days, #30 TAB Prov:[facility] 01/11/25 Reported Medications Tamsulosin Hcl (Tamsulosin Hcl) 0.4 Mg Cap, 1 CAP PO DAILY for 30 Days, #30 12/31/24 Lisinopril (Lisinopril) 40 Mg Tab, 1 TAB PO DAILY for 30 Days, #30 12/31/24 Amlodipine Besylate (Amlodipine Besylate) 10 Mg Tab, 1 TAB PO DAILY for 30 Days, #30 12/31/24 Glipizide (Glipizide Er) 5 Mg Tab, 1 TAB PO DAILY for 30 Days, #30 TAKE 1 TABLET BY MOUTH ONCE DAILY WITH BREAKFAST. 12/31/24 Current Medications Current Medications Medications (Trade) Dose Ordered Sig/Wai Route PRN Reason Start Time Stop Time Status Last Admin Sodium Bicarbonate 650 mg TID PO 06/22/25 22:00 06/23/25 05:59 Albuterol (Ventolin Medneb) 2.5 mg Q4HR NEB 06/23/25 10:00 UNV Fluconazole 100 ml @ 100 mls/hr DAILY IV 06/23/25 10:00 UNV Ipratropium [place] (Atrovent Medneb) 0.5 mg Q4HR NEB 06/23/25 10:00 UNV Vital Signs Vital Signs Date Time Temp Pulse Resp B/P (MAP) Pulse Ox O2 Delivery O2 Flow Rate FiO2 06/23/25 07:04 76 18 97 06/23/25 06:58 Nasal Cannula 1.0 06/23/25 06:58 24 06/23/25 06:01 104/72 06/23/25 05:00 96.4 96.4 SEPSIS Sepsis Screen Date sepsis recognized/suspect: Jun 17, 2025 Time Sepsis recognized/suspect: 729 Recent Procedure: No On Antibiotic Therapy: No Respiratory Rate >20: No Heart Rate >90: No Temp<36 C (96.8 F) or >38.3 C: No SBP <90 or MAP <65 mmHG: No New Acute Mental Status Change: No Is the patient on CPAP, BIPAP,: No Physician Orders Chest Portable (06/17/25 02:22) Admit (06/17/25 07:32) Allergies (06/17/25 07:32) Code Status (06/17/25 07:32) Condition: Unstable (06/17/25 07:32) Acetaminophen Tablet (Tylenol Tablet) (06/17/25 07:45) Morphine Sulfate Injection (06/17/25 07:45) Nitroglycerin Sublingual (Ntrostat Subli (06/17/25 07:45) Morphine Sulfate Injection (06/17/25 07:45) Stat Ekg For Chest Pain (06/17/25 07:32) Notify Md Of Changes From Base (06/17/25 07:32) Network Professional For 24 Hours (06/17/25 07:32) Emergency Dysrhythmia Protocol (06/17/25 07:32) Rhythm Strips Once Every Shift (06/17/25 07:32) Oxygen By Nasal Cannula (06/17/25 07:32) *Consult Dr. Kirsten Verdin (06/17/25 07:32) Tamsulosin Hydrochloride (Flomax) (06/17/25 10:00) Urine Bacterial Culture (06/17/25 07:36) *Dr. Lizett Saunders -Da [place] (06/17/25 07:38) Carvedilol Tablet (Coreg Tablet) (06/17/25 10:00) Hydralazine Injection (Apresoline Inject (06/17/25 12:00) Glucose Blood (Accu-Chek Comfort Curve T (06/17/25 12:45) Insulin R (Human) (Insulin R) (06/17/25 12:45) Dextrose 50% Syringe (06/17/25 12:45) Kub Abdomen Single View (06/17/25 15:25) * Dietary Consult (06/17/25 17:53) Amlodipine Tablet (Norvasc Tablet) (06/18/25 10:00) * Wound Consult (06/18/25 ) Free Water (06/18/25 13:03) Mupirocin 2% Oint Mrsa Nares (Bactroban (06/18/25 22:00) * Swallow Request (06/18/25 13:45) Tube Feeding (06/18/25 15:05) Apply Z-Guard BID (06/18/25 12:45) Communication Order (06/18/25 18:29) Kub Abdomen Single View (06/18/25 21:22) In Am After Procedure: (06/18/25 21:22) Check Gastric Residual (06/18/25 21:22) Communication Order (06/19/25 07:14) Communication Order (06/19/25 07:16) Chest Portable (06/19/25 13:17) Bumetanide Injection (Bumex Injection) (06/20/25 18:00) Obtain Consent For: (06/21/25 07:40) Insert Midline (06/21/25 07:55) Nutritional Supplements (Nepro With Carb (06/21/25 08:45) Pantoprazole (Protonix) (06/21/25 15:15) Wound Culture W/ Gs (06/21/25 16:21) Wound Dressing: BID (06/21/25 16:13) Hemoglobin & Hematocrit (06/23/25 10:00) Hemoglobin & Hematocrit (06/23/25 22:00) Chest Portable (06/21/25 16:35) Cardiac Diet-2gna,Lofat,Lochol (06/21/25 Dinner) Basic Metabolic Panel (06/24/25 05:00) Basic Metabolic Panel (06/25/25 05:00) Basic Metabolic Panel (06/26/25 05:00) Basic Metabolic Panel (06/27/25 05:00) Sodium Bicarb Tab (06/22/25 22:00) Albuterol Medneb (Ventolin Medneb) (06/23/25 10:00) Fluconazole 200mg/100ml (Diflucan 200mg/ (06/23/25 10:00) Chest Xray 1 View (06/23/25 09:52) Ipratropium Medneb (Atrovent Medneb) (06/23/25 10:00) Chest Percussion Tx Initi (06/23/25 09:52) Calcium Gluc 1,000mg/50ml-Ns (06/23/25 10:00) Vital Signs Date Time Temp Pulse Resp B/P (MAP) Pulse Ox O2 Delivery O2 Flow Rate FiO2 06/23/25 07:04 76 18 97 06/23/25 06:58 95 Nasal Cannula 1.0 06/23/25 06:58 95 Nasal Cannula* 1 06/23/25 06:58 78 16 95 06/23/25 06:01 104/72 06/23/25 06:00 104/72 06/23/25 05:00 96.4 75 17 104/72 (83) 92 96.4 06/23/25 01:00 96.9 71 17 134/81 (98) 95 96.9 06/23/25 00:00 124/60 06/22/25 21:58 76 110/74 06/22/25 21:00 96.5 76 17 110/74 (86) 95 96.5 06/22/25 20:56 96 Nasal Cannula 2.0 06/22/25 20:56 96 Nasal Cannula* 2 06/22/25 20:00 76 17 95 Nasal Cannula* 2 06/22/25 17:48 109/78 06/22/25 17:39 109/78 06/22/25 16:39 98.1 79 18 109/78 (88) 97 98.1 06/22/25 12:52 97.8 80 20 117/76 (90) 98 97.8 06/22/25 12:43 77 14 100 06/22/25 12:37 100 Nasal Cannula* 1 06/22/25 12:37 100 Nasal Cannula 1.0 06/22/25 12:37 77 16 100 06/22/25 12:00 117/76 06/22/25 10:00 111/73 06/22/25 10:00 74 111/73 06/22/25 10:00 100 Nasal Cannula 2.0 06/22/25 10:00 Nasal Cannula* 2 06/22/25 09:00 98.1 72 20 117/74 (88) 100 98.1 06/22/25 08:00 72 20 100 Room Air* 0 06/22/25 07:30 100 Nasal Cannula 1.0 06/22/25 07:30 100 Nasal Cannula* 1 06/22/25 06:04 120/80 06/22/25 06:00 120/80 06/22/25 05:00 97.6 72 18 120/80 (93) 97 97.6 06/22/25 01:45 97.2 70 18 113/86 97 2.0 28 97.2 06/22/25 01:00 97.9 70 18 119/70 (86) 96 97.9 06/21/25 23:57 113/86 06/21/25 22:00 70 114/79 06/21/25 21:00 97.2 70 18 114/79 (91) 97 97.2 06/21/25 20:00 70 18 97 Nasal Cannula* 2 06/21/25 19:41 97 Nasal Cannula 2.0 06/21/25 19:41 97 Nasal Cannula* 2 06/21/25 16:35 98.7 83 22 117/93 (101) 96 98.7 06/21/25 15:16 98.6 85 22 122/89 98.6 06/21/25 14:47 129/75 06/21/25 14:17 98.7 85 18 129/79 98.7 06/21/25 14:16 98.7 85 18 129/79 98.7 06/21/25 12:32 98.1 77 20 115/85 (95) 97 98.1 06/21/25 12:17 98.3 85 18 114/75 98.3 06/21/25 11:55 98.7 75 18 115/78 98.7 06/21/25 11:46 115/85 06/21/25 09:54 96/69 06/21/25 09:54 74 96/69 06/21/25 09:00 97.9 74 20 96/69 (78) 98 97.9 06/21/25 08:17 74 18 96 Room Air* 0 21 Laboratory Tests Test 06/17/25 03:18 06/18/25 06:33 06/19/25 17:14 06/20/25 13:00 White Blood Count 23.2 10^3/uL (4.4-10.8) H 19.1 10^3/uL (4.4-10.8) H 15.4 10^3/uL (4.4-10.8) H 17.5 10^3/uL (4.4-10.8) H Test 06/21/25 06:54 White Blood Count 17.4 10^3/uL (4.4-10.8) H Results Labs Test 06/23/25 07:11 06/23/25 06:09 06/22/25 22:26 06/22/25 13:50 Range/Units Sodium Level 136 136-145 mmol/L Potassium Level 3.7 3.5-5.1 mmol/L Chloride Level 105 98-107 mmol/L Carbon Dioxide Level 16 L 20-31 mmol/L Anion Gap 15 5-15 Blood Urea Nitrogen 141 *H 9-23 mg/dL Creatinine 3.67 H 0.700-1.30 mg/dL Glomerular Filtration Rate Calc 20 >90 mL/min BUN/Creatinine Ratio 38.4 H 10.0-20.0 Serum Glucose 72 L 74-106 mg/dL Calcium Level 6.4 L 8.7-10.4 mg/dL POC Glucose 64 L 70-106 mg/dl Hemoglobin 8.3 L 13.5-17.5 g/dL Hematocrit 25.3 #L 41.0-53.0 % Stool Occult Blood Negative Negative Stool Occult Blood Sample #3 Negative Test 06/21/25 06:54 06/19/25 13:20 06/18/25 06:33 06/17/25 10:58 Range/Units White Blood Count 17.4 H 4.4-10.8 10^3/uL Red Blood Count 2.28 L 4.5-5.90 10^6/uL Mean Corpuscular Volume 90.1 80.0-100.0 fL Mean Corpuscular Hemoglobin 28.6 28.0-32.0 pg Mean Corpuscular Hemoglobin Concent 31.8 L 32.0-36.0 g/dL Red Cell Distribution Width 17.5 H 11.8-14.3 % Platelet Count 118 L 140-450 10^3/uL Mean Platelet Volume 12.6 H 6.9-10.8 fL Neutrophils (%) (Auto) 88.5 H 37.0-80.0 % Lymphocytes (%) (Auto) 8.3 L 10.0-50.0 % Monocytes (%) (Auto) 2.4 0.0-12.0 % Eosinophils (%) (Auto) 0.5 0.0-7.0 % Basophils (%) (Auto) 0.3 0.0-2.0 % Neutrophils # (Auto) 15.4 H 1.6-8.6 10 ^3/uL Lymphocytes # (Auto) 1.4 0.4-5.4 10 ^3/uL Monocytes # (Auto) 0.4 0-1.3 10 ^3/uL Eosinophils # (Auto) 0.1 0-0.8 10 ^3/uL Basophils # (Auto) 0 0-0.2 10 ^3/uL Nucleated Red Blood Cells 0.3 % Platelet Estimate Decreased Hypochromasia (manual) Slight Poikilocytosis (manual) Moderate Anisocytosis (manual) Slight Tear Drop Cells Few Jennifer Cells Moderate Magnesium Level 1.8 1.6-2.6 mg/dL B-Type Natriuretic Peptide 100.13 0-100 pg/mL Phosphorus Level 6.2 H 2.4-5.1 mg/dL Total Bilirubin < 0.2 L 0.2-1.0 mg/dL Aspartate Amino Transferase (AST) < 8 L 13-40 U/L Alanine Aminotransferase (ALT) 11 7-40 U/L Alkaline Phosphatase 248 H 46-116 U/L Total Protein 5.2 L 5.7-8.2 g/dL Albumin 2.5 L 3.2-4.8 g/dL Urine Color Dark yellow Yellow Urine Clarity Ex.turbid Clear Urine pH 6.5 5.0-9.0 Urine Specific [place] 1.016 1.001-1.035 Urine Protein 2+ H Negative Urine Ketones Negative Negative Urine Blood 3+ H Negative /uL Urine Nitrite Negative Negative Urine Bilirubin Negative Negative Urine Urobilinogen Normal Negative mg/dL Urine Leukocyte Esterase 3+ Negative /uL Urine RBC 22 0 - 3 /hpf Urine WBC Clumps Present None Seen /hpf Urine Microscopic WBC 1038 H 0-3 /HPF Urine Squamous Epithelial Cells None seen <5 /hpf Urine Bacteria None seen None Seen /hpf Urine Yeast (Budding) Loaded None Seen /hpf Urine Glucose 3+ H Normal mg/dL Test 06/17/25 03:29 Range/Units Iron Level 20 L 65-175 ug/dL Total Iron Binding Capacity 139 L 250-425 ug/dL Percent Iron Saturation 14.4 L 20-55 % Microbiology Date/Time Source Procedure Growth Status 06/21/25 16:15 Abdomen Gram Stain - Final Resulted 06/21/25 16:15 Abdomen Wound Culture - Preliminary Resulted 06/17/25 15:20 Blood Blood Culture - Final NO GROWTH AFTER 5 DAYS OF INCUBATION. Complete RAÚL STEEL NP Jun 23, 2025 09:58
--- NOTE | 2025-06-23 10:01 | DVHPN2 ---
Progress Note - Dictate Date Seen: Jun 23, 2025 Has the PT tested + for MRSA If YES, has PT been informed?: No Medical Necessity Reason Pt with a Central, PICC or Fol: Yes The following are medically ne: Smith Catheter Reason for smith catheter: Bladder Retention/Obstruc vital signs Vital Sign Date Time Temp Pulse Resp B/P (MAP) Pulse Ox O2 Delivery O2 Flow Rate FiO2 06/23/25 07:04 76 18 97 06/23/25 06:58 Nasal Cannula 1.0 06/23/25 06:58 24 06/23/25 06:01 104/72 06/23/25 05:00 96.4 96.4 Total Intake and Output 06/22/25 06/22/25 06/23/25 15:00 23:00 07:00 Intake Total 160 ml 600 ml 0 ml Output Total 225 ml 300 ml Balance 160 ml 375 ml -300 ml medications Current Medications Medications Dose Ordered Sig/Wai Route Start Time Stop Time Status Last Admin Dose Admin Enoxaparin Sodium 40 mg DAILY SC 06/17/25 10:00 UNV Acetaminophen 650 mg Q6HP PRN PO 06/17/25 07:45 Morphine Sulfate 2 mg Q4HPRN PRN IV 06/17/25 07:45 Nitroglycerin 0.4 mg Q5MINP PRN SL 06/17/25 07:45 Morphine Sulfate 2 mg Q30M PRN IV 06/17/25 07:45 Furosemide 40 mg DAILY PO 06/17/25 10:00 Cancel Tamsulosin HCl 0.4 mg DAILY PO 06/17/25 10:00 06/22/25 11:13 Ceftriaxone Sodium 50 ml @ 100 mls/hr DAILY@09 IV 06/17/25 09:00 06/22/25 11:10 Carvedilol 6.25 mg Q12HR PO 06/17/25 10:00 06/19/25 09:21 Hydralazine HCl 10 mg Q6HR IV 06/17/25 12:00 06/20/25 12:51 Diagnostic Test (Pha) 1 strip ACHS 06/17/25 12:45 06/23/25 07:01 Insulin Human Regular ACHS SC 06/17/25 12:45 06/22/25 17:37 Dextrose 50 ml UD PRN IV 06/17/25 12:45 Amlodipine Besylate 10 mg DAILY GT 06/18/25 10:00 06/19/25 09:22 Mupirocin 1 applic BID EACHNOSTRI 06/18/25 22:00 06/23/25 21:59 06/22/25 21:58 Bumetanide 2.5 mg BIDD IV 06/20/25 18:00 06/23/25 06:01 Enteral Nutritional Formula 1,000 ml 25ML/HR GT 06/21/25 08:45 06/22/25 16:44 Pantoprazole Sodium 40 mg BID IV 06/21/25 15:15 06/22/25 21:57 Sodium Bicarbonate 650 mg TID PO 06/22/25 22:00 06/23/25 05:59 Albuterol 2.5 mg Q4HR NEB 06/23/25 10:00 UNV Fluconazole 100 ml @ 100 mls/hr DAILY IV 06/23/25 10:00 UNV Ipratropium [place] 0.5 mg Q4HR NEB 06/23/25 10:00 UNV objective General Appearance: alert, no distress HEENT: EOMI, PERRLA, normal external inspect of ears, no icterus, no nasal drainage Neck: no carotid bruit, no jugular venous distention (JVD), no lymphadenopathy Chest: normal thorax Respiratory: clear to auscultation, normal air movement Cardiovascular: regular rate and rhythm, no diastolic murmur, no jugular venous distention (JVD), no rub, no systolic murmur Abdominal: soft, no hepatomegaly, no mass, no splenomegaly, no tenderness Genitourinary: grossly normal external Musculoskeletal: no joint tenderness, no swelling Extremities: normal pulses, no calf tenderness, no clubbing, no cyanosis, no edema Skin: no bruising, no jaundice, no rash Neurological: alert, No focal deficit laboratory and microbiology Laboratory Tests 06/23/25 07:11 06/22/25 22:26 06/21/25 06:54 Test 06/23/25 07:11 Range/Units Serum Glucose 72 L 74-106 mg/dL Problem List 1. Dislodged G-tube GI consult for replacement, IV fluids, monitor 2. Sepsis due to acute cystitis IV antibiotics, IV fluids, monitor blood cultures, monitor 3. Type 2 diabetes with hyperglycemia Insulin sliding scale, monitor 4. Anemia of chronic disease IV iron, monitor 5. Pleural effusion Monitor 6. History of CVA Monitor 7. Hypertensive urgency Antihypertensives, monitor 8. LISANDRO with ATN on CKD 3B IV fluids, nephrology consult, monitor 9. Hypernatremia Monitor CMP, monitor 10. sever protein deficiency Monitor Assessment/Plan Subjective: Patient's mentation is at baseline. Objective: Patient was admitted for sepsis and septic shock. Patient had LISANDRO superimposed on CKD. Patient was found to have sepsis from a UTI with a chronic Smith catheter. Patient's mentation is now at baseline. He did pass a swallow eval. Wound culture came back with yeast around G-tube. Patient had some secretions and has difficulty expectorating his secretions. Plan: Start breathing treatments. Add chest physiotherapy. Continue diuretics. Monitor renal function. Aspiration precautions. Monitor daily labs. Dietary Evaluation Review Comments: 1. TPN per pharmacy to meet pt's needs @ 100%. 2. When GT available, TF Nepro @25ml/hr (49g Protein 1062 kcal 436ml water) plus Dextrose 5% for an addition 200 kcal 3. continue iron supplementation 4. Reassess in 3-5 days Expected Outcomes/Goals: imprvoed nutrition status, avoid uremic symptoms, gradual wt gains. Plan discussed with: Patient, Other CC Plasma Assessment Blood Product Administration S: [id number] RAÚL STEEL NP Jun 23, 2025 10:01
[2025-06-23] MEDS: IPRATROPIUM BROM 0.5 MG/2.5ML INH SOL NEB SCH (10:07)
[2025-06-23] MEDS: ALBUTEROL SULF 2.5 MG/0.5ML(0.5%) NEB SOLN NEB SCH (10:08)
[2025-06-23] MEDS: FLUCONAZOLE 200MG/100ML 100 ML IV SCH (10:17)
[2025-06-23 10:32] LABS: Hematocrit 28.2 % (41.0-53.0); Hemoglobin 9.1 g/dL (13.5-17.5)
[2025-06-23] MEDS: CALCIUM GLUC 1,000mg/50ml-NS 50 ML IV SCH (11:34)
--- NOTE | 2025-06-23 12:04 | DVH ---
CHEST RADIOGRAPH Indication: sob Technique: Single frontal view of the chest was obtained Comparison: XY CHEST PORTABLE on DOS: 06/21/25, XY CHEST PORTABLE on DOS: 06/19/25, XY CHEST PORTABLE o n DOS: 06/17/25, XY CHEST XRAY 1 VIEW on DOS: 05/23/25, XY CHEST PORTABLE on DOS: 05/21/25 FINDINGS: Evaluation is degraded by patient positioning. The cardiomediastinal silhouette appears stable in siz e. There is increased scattered airspace opacity bilaterally, possibly worsened by low inspiratory vo lume on the current study. There is no large pleural effusion. There is no pneumothorax. No acute fra cture is identified. IMPRESSION: Increased scattered airspace opacity bilaterally. This may be secondary to the decreased inspiratory volume on the current study.
--- NOTE | 2025-06-23 14:24 | DVHPN2 ---
Progress Note - Dictate Date Seen: Jun 23, 2025 Has the PT tested + for MRSA If YES, has PT been informed?: No Medical Necessity Reason Pt with a Central, PICC or Fol: Yes The following are medically ne: Smith Catheter Reason for smith catheter: Bladder Retention/Obstruc Subjective no acute issues overnight vital signs Vital Sign Date Time Temp Pulse Resp B/P (MAP) Pulse Ox O2 Delivery O2 Flow Rate FiO2 06/23/25 14:12 80 16 99 06/23/25 14:06 Nasal Cannula 1.0 06/23/25 14:06 24 06/23/25 13:05 118/78 (91) 06/23/25 05:00 96.4 96.4 Total Intake and Output 06/22/25 06/22/25 06/23/25 15:00 23:00 07:00 Intake Total 160 ml 600 ml 0 ml Output Total 225 ml 300 ml Balance 160 ml 375 ml -300 ml medications Current Medications Medications Dose Ordered Sig/Wai Route Start Time Stop Time Status Last Admin Dose Admin Enoxaparin Sodium 40 mg DAILY SC 06/17/25 10:00 UNV Acetaminophen 650 mg Q6HP PRN PO 06/17/25 07:45 Morphine Sulfate 2 mg Q4HPRN PRN IV 06/17/25 07:45 Nitroglycerin 0.4 mg Q5MINP PRN SL 06/17/25 07:45 Morphine Sulfate 2 mg Q30M PRN IV 06/17/25 07:45 Furosemide 40 mg DAILY PO 06/17/25 10:00 Cancel Tamsulosin HCl 0.4 mg DAILY PO 06/17/25 10:00 06/23/25 10:10 0.4 MG Carvedilol 6.25 mg Q12HR PO 06/17/25 10:00 06/19/25 09:21 6.25 MG Hydralazine HCl 10 mg Q6HR IV 06/17/25 12:00 06/20/25 12:51 10 MG Diagnostic Test (Pha) 1 strip ACHS 06/17/25 12:45 06/23/25 07:01 1 STRIP Insulin Human Regular ACHS SC 06/17/25 12:45 06/22/25 17:37 2 UNITS Dextrose 50 ml UD PRN IV 06/17/25 12:45 Amlodipine Besylate 10 mg DAILY GT 06/18/25 10:00 06/19/25 09:22 10 MG Mupirocin 1 applic BID EACHNOSTRI 06/18/25 22:00 06/23/25 21:59 06/23/25 10:10 1 APPLIC Bumetanide 2.5 mg BIDD IV 06/20/25 18:00 06/23/25 06:01 2.5 MG Enteral Nutritional Formula 1,000 ml 25ML/HR GT 06/21/25 08:45 06/22/25 16:44 1,000 ML Pantoprazole Sodium 40 mg BID IV 06/21/25 15:15 06/23/25 10:10 40 MG Sodium Bicarbonate 650 mg TID PO 06/22/25 22:00 06/23/25 05:59 650 MG Albuterol 2.5 mg Q4HR NEB 06/23/25 10:00 06/23/25 14:06 2.5 MG Fluconazole 100 ml @ 100 mls/hr DAILY IV 06/23/25 10:00 06/23/25 10:17 100 MLS/HR Ipratropium [place] 0.5 mg Q4HR NEB 06/23/25 10:00 06/23/25 14:06 0.5 MG objective Patient is arousable HEENT: Normocephalic Lungs:good air entry bilaterally CVS: S1, S2 regular rate rhythm Abdomen: Soft Extremities: No edema 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 * Cachexia. * Obstructive uropathy, neurogenic bladder. Patient has a indwelling Smith catheter * Encephalopathy and uremia. * Severe anemia. * Quadriplegia. * Malfunction of feeding tube. Assessment/Plan GFR is stable with worsening BUN probably related to GI bleed /catabolic state continue diuresis Patient's baseline creatinine is around 3.2. Increase sodium bicarbonate to 650 mg tid consider hospice /supportive care Prognosis guarded Dietary Evaluation Review Comments: 1. TPN per pharmacy to meet pt's needs @ 100%. 2. When GT available, TF Nepro @25ml/hr (49g Protein 1062 kcal 436ml water) plus Dextrose 5% for an addition 200 kcal 3. continue iron supplementation 4. Reassess in 3-5 days Expected Outcomes/Goals: imprvoed nutrition status, avoid uremic symptoms, gradual wt gains. Plan discussed with: Other CC Plasma Assessment Blood Product Administration S: [id number] RAÚL YOST MD Jun 23, 2025 14:24
--- NOTE | 2025-06-23 14:54 | DVHPN2 ---
Progress Note Date Seen: Jun 23, 2025 Resident Creating Document: DOMINGUEZ AGUILERA RESIDENT Has the PT tested + for MRSA If YES, has PT been informed?: Yes Medical Necessity Reason Pt with a Central, PICC or Fol: Yes The following are medically ne: Smith Catheter Reason for smith catheter: Bladder Retention/Obstruc Subjective Review of Systems 44-year-old male with multiple comorbidities and PEG tube dependence was examined at bedside today. PEG site shows only mild redness, improved from yesterday. Site is being cleaned with hydrogen peroxide and covered with dry dressings. Tube is patent; flushes and feeds are infusing without issues. Patient is tolerating enteral feeds well. He successfully passed his swallow evaluation and is now also on a pureed oral diet, which he is tolerating. Bowel movements continue, loose but non-bloody. No abdominal pain, nausea, hematemesis, or melena reported. Antibiotic regimen was changed today: Ceftriaxone discontinued and fluconazole initiated (planned for 3 days) per culture sensitivities. director of physiotherapy services have been consulted for hospice care evaluation and discharge planning. Brief Summary of Todays Progress * PEG site infection improving; drainage decreased. * Feeds: Enteral via PEG (Nepro) ongoing, plus pureed diet tolerated. * Antibiotics: Transitioned from Rocephin to fluconazole daily * Infection control: MRSA colonization noted; contact precautions in place. * Social work involved for hospice and discharge planning. ROS * GI: No abdominal pain, no melena, no hematemesis, loose stool without blood. * Nutrition: Tolerating both PEG feeds and pureed diet. * Other systems: Unremarkable for GI perspective. Objective vital signs Vital Sign Date Time Temp Pulse Resp B/P (MAP) Pulse Ox O2 Delivery O2 Flow Rate FiO2 06/23/25 14:12 80 16 99 06/23/25 14:06 Nasal Cannula 1.0 06/23/25 14:06 24 06/23/25 13:05 118/78 (91) 06/23/25 05:00 96.4 96.4 Total Intake and Output 06/22/25 06/22/25 06/23/25 15:00 23:00 07:00 Intake Total 160 ml 600 ml 0 ml Output Total 225 ml 300 ml Balance 160 ml 375 ml -300 ml medications Current Medications Medications Dose Ordered Sig/Wai Route Start Time Stop Time Status Last Admin Dose Admin Enoxaparin Sodium 40 mg DAILY SC 06/17/25 10:00 UNV Acetaminophen 650 mg Q6HP PRN PO 06/17/25 07:45 Morphine Sulfate 2 mg Q4HPRN PRN IV 06/17/25 07:45 Nitroglycerin 0.4 mg Q5MINP PRN SL 06/17/25 07:45 Morphine Sulfate 2 mg Q30M PRN IV 06/17/25 07:45 Furosemide 40 mg DAILY PO 06/17/25 10:00 Cancel Tamsulosin HCl 0.4 mg DAILY PO 06/17/25 10:00 06/23/25 10:10 0.4 MG Carvedilol 6.25 mg Q12HR PO 06/17/25 10:00 06/19/25 09:21 6.25 MG Hydralazine HCl 10 mg Q6HR IV 06/17/25 12:00 06/20/25 12:51 10 MG Diagnostic Test (Pha) 1 strip ACHS 06/17/25 12:45 06/23/25 07:01 1 STRIP Insulin Human Regular ACHS SC 06/17/25 12:45 06/22/25 17:37 2 UNITS Dextrose 50 ml UD PRN IV 06/17/25 12:45 Amlodipine Besylate 10 mg DAILY GT 06/18/25 10:00 06/19/25 09:22 10 MG Mupirocin 1 applic BID EACHNOSTRI 06/18/25 22:00 06/23/25 21:59 06/23/25 10:10 1 APPLIC Bumetanide 2.5 mg BIDD IV 06/20/25 18:00 06/23/25 06:01 2.5 MG Enteral Nutritional Formula 1,000 ml 25ML/HR GT 06/21/25 08:45 06/22/25 16:44 1,000 ML Pantoprazole Sodium 40 mg BID IV 06/21/25 15:15 06/23/25 10:10 40 MG Sodium Bicarbonate 650 mg TID PO 06/22/25 22:00 06/23/25 05:59 650 MG Albuterol 2.5 mg Q4HR NEB 06/23/25 10:00 06/23/25 14:06 2.5 MG Fluconazole 100 ml @ 100 mls/hr DAILY IV 06/23/25 10:00 06/23/25 10:17 100 MLS/HR Ipratropium [place] 0.5 mg Q4HR NEB 06/23/25 10:00 06/23/25 14:06 0.5 MG Examination * General: Alert, no acute distress. * Abdomen: Soft, non-tender, nondistended. * PEG Site: Tube in place, no induration, or fluctuance. Dressing clean and dry. * Bowel Sounds: Normoactive. * Stool: Loose, non-bloody. * Other: No jaundice, no ascites. laboratory and microbiology Laboratory Tests 06/23/25 09:56 06/23/25 07:11 06/21/25 06:54 Test 06/23/25 07:11 Range/Units Serum Glucose 72 L 74-106 mg/dL Microbiology Date/Time Source Procedure Growth Status 06/21/25 16:15 Abdomen Gram Stain - Final Resulted 06/21/25 16:15 Abdomen Wound Culture - Preliminary Resulted 06/17/25 15:20 Blood Blood Culture - Final NO GROWTH AFTER 5 DAYS OF INCUBATION. Complete Problem List/Assessment/Plan Problem List/Assessment/Plan Assessment 1. PEG Tube Site Local Infection minimal drainage, improving with ongoing wound care and antibiotics. 2. Acute on Chronic Anemia stable Hgb (9.3), no evidence of active GI bleeding. 3. Severe Protein-Calorie Malnutrition receiving PEG feeds and pureed oral diet. 4. Rule Out Occult GI Bleed stool occult negative; no overt GI bleed. 5. MRSA Colonization precautions in place. System-Cool GI Plan Treatment Plan 1. PEG Tube Site Care * Continue local wound care: clean with hydrogen peroxide BID and apply dry dressings. * Continue monitoring for signs of cellulitis or abscess. * Wound culture follow-up for final sensitivities. * Continue Fluconazole for coverage per current plan. 2. Nutrition * Continue Nepro via PEG at current rate (25 mL/hr), monitor tolerance and residuals. * Advance pureed oral diet as tolerated, encourage intake. * Cdl A Driver to continue oversight for calorie/protein adequacy. 3. GI Bleed Prophylaxis / Anemia Monitoring * Continue Pantoprazole 40 mg IV BID. * Monitor CBC with H&H daily; transfuse PRBC only if Hgb <7 or symptomatic. * Stool occult negative 4. Infection Control * Continue MRSA precautions. * Social service consultation ongoing for hospice care and discharge planning. Dietary Evaluation Review Comments: 1. TPN per pharmacy to meet pt's needs @ 100%. 2. When GT available, TF Nepro @25ml/hr (49g Protein 1062 kcal 436ml water) plus Dextrose 5% for an addition 200 kcal 3. continue iron supplementation 4. Reassess in 3-5 days Expected Outcomes/Goals: imprvoed nutrition status, avoid uremic symptoms, gradual wt gains. Plan discussed with: Patient, Other (Nurse) Plan discussed with: Patient Dietary Evaluation Review Comments: 1. TPN per pharmacy to meet pt's needs @ 100%. 2. When GT available, TF Nepro @25ml/hr (49g Protein 1062 kcal 436ml water) plus Dextrose 5% for an addition 200 kcal 3. continue iron supplementation 4. Reassess in 3-5 days Expected Outcomes/Goals: imprvoed nutrition status, avoid uremic symptoms, gradual wt gains. CC Plasma Assessment Blood Product Administration S: [id number] DOMINGUEZ AGUILERA RESIDENT Jun 23, 2025 14:54
[2025-06-23] MEDS: SODIUM BICARBONATE 650 MG TAB GT SCH (21:22)
[2025-06-23 22:15] LABS: Hematocrit 24.5 % (41.0-53.0); Hemoglobin 7.9 g/dL (13.5-17.5)
[2025-06-24] VITALS (19 sets, daily range): BP systolic 107–119; BP diastolic 56–76; PULSE 69–86; RESP 16–26; TEMP 97.3–98.1; O2SAT 90–100
[2025-06-24 06:07] LABS: Anion Gap 16 (5-15); Chloride 105 mmol/L (98-107); Potassium 3.6 mmol/L (3.5-5.1)
[2025-06-24 06:13] LABS: Glucose 81 mg/dL (74-106)
[2025-06-24 06:20] LABS: Carbon Dioxide 14 mmol/L (20-31); Sodium 135 mmol/L (136-145)
[2025-06-24 06:22] LABS: Calcium 6.0 mg/dL (8.7-10.4)
[2025-06-24 06:23] LABS: BUN/Creatinine Ratio 41.4 (10.0-20.0); Blood Urea Nitrogen 145 mg/dL (9-23)
--- NOTE | 2025-06-24 09:03 | DVHPN2 ---
Progress Note - Dictate Date Seen: Jun 24, 2025 Has the PT tested + for MRSA If YES, has PT been informed?: Yes Medical Necessity Reason Pt with a Central, PICC or Fol: Yes The following are medically ne: Smith Catheter Reason for smith catheter: Bladder Retention/Obstruc Subjective no acute issues overnight vital signs Vital Sign Date Time Temp Pulse Resp B/P (MAP) Pulse Ox O2 Delivery O2 Flow Rate FiO2 06/24/25 07:07 70 20 98 06/24/25 07:01 Room Air 0.0 06/24/25 07:01 21 06/24/25 05:48 115/66 06/24/25 05:00 97.4 97.4 Total Intake and Output 06/23/25 06/23/25 06/24/25 15:00 23:00 07:00 Intake Total 200 ml 325 ml 0 ml Output Total 200 ml 275 ml Balance 200 ml 125 ml -275 ml medications Current Medications Medications Dose Ordered Sig/Wai Route Start Time Stop Time Status Last Admin Dose Admin Enoxaparin Sodium 40 mg DAILY SC 06/17/25 10:00 UNV Acetaminophen 650 mg Q6HP PRN PO 06/17/25 07:45 Morphine Sulfate 2 mg Q4HPRN PRN IV 06/17/25 07:45 Nitroglycerin 0.4 mg Q5MINP PRN SL 06/17/25 07:45 Morphine Sulfate 2 mg Q30M PRN IV 06/17/25 07:45 Furosemide 40 mg DAILY PO 06/17/25 10:00 Cancel Tamsulosin HCl 0.4 mg DAILY PO 06/17/25 10:00 06/23/25 10:10 0.4 MG Carvedilol 6.25 mg Q12HR PO 06/17/25 10:00 06/23/25 21:28 6.25 MG Hydralazine HCl 10 mg Q6HR IV 06/17/25 12:00 06/20/25 12:51 10 MG Diagnostic Test (Pha) 1 strip ACHS 06/17/25 12:45 06/24/25 05:48 1 STRIP Insulin Human Regular ACHS SC 06/17/25 12:45 06/23/25 17:06 3 UNITS Dextrose 50 ml UD PRN IV 06/17/25 12:45 Amlodipine Besylate 10 mg DAILY GT 06/18/25 10:00 06/19/25 09:22 10 MG Bumetanide 2.5 mg BIDD IV 06/20/25 18:00 06/24/25 05:48 2.5 MG Enteral Nutritional Formula 1,000 ml 25ML/HR GT 06/21/25 08:45 06/23/25 21:28 1,000 ML Pantoprazole Sodium 40 mg BID IV 06/21/25 15:15 06/23/25 21:21 40 MG Albuterol 2.5 mg Q4HR [facility] 06/23/25 10:00 06/24/25 07:01 2.5 MG Fluconazole 100 ml @ 100 mls/hr DAILY IV 06/23/25 10:00 06/23/25 10:17 100 MLS/HR Ipratropium [place] 0.5 mg Q4HR [facility] 06/23/25 10:00 06/24/25 07:01 0.5 MG Sodium Bicarbonate 650 mg TID GT 06/23/25 22:00 06/24/25 05:48 650 MG objective Patient resting HEENT: Normocephalic Lungs:good air entry bilaterally CVS: S1, S2 regular rate rhythm Abdomen: Soft Extremities: No edema 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 * Cachexia. * Obstructive uropathy, neurogenic bladder. Patient has a indwelling Smith catheter * Encephalopathy and uremia. * Severe anemia. * Quadriplegia. * Malfunction of feeding tube. Assessment/Plan GFR is stable with worsening BUN probably related to GI bleed /catabolic state decrease Bumex 1 mg IV BID Patient's baseline creatinine is around 3.2. Increase sodium bicarbonate to 1300 MG BID consider hospice /supportive care Prognosis guarded Dietary Evaluation Review Comments: 1. TPN per pharmacy to meet pt's needs @ 100%. 2. When GT available, TF Nepro @25ml/hr (49g Protein 1062 kcal 436ml water) plus Dextrose 5% for an addition 200 kcal 3. continue iron supplementation 4. Reassess in 3-5 days Expected Outcomes/Goals: imprvoed nutrition status, avoid uremic symptoms, gradual wt gains. Plan discussed with: Other CC Plasma Assessment Blood Product Administration S: [id number] RAÚL YOST MD Jun 24, 2025 09:03
[2025-06-24] MEDS: SODIUM BICARBONATE 650 MG TAB GT SCH (10:00)
--- NOTE | 2025-06-24 11:26 | DVHPN2 ---
Progress Note Date Seen: Jun 24, 2025 Resident Creating Document: DOMINGUEZ AGUILERA RESIDENT Has the PT tested + for MRSA If YES, has PT been informed?: Yes Medical Necessity Reason Pt with a Central, PICC or Fol: Yes The following are medically ne: Smith Catheter Reason for smith catheter: Bladder Retention/Obstruc Subjective Review of Systems 06/24/25 44-year-old male with PEG tube dependence, severe protein-calorie malnutrition, ESRD, chronic anemia, and recent PEG site infection was evaluated at bedside today. * Patient is hemodynamically stable, breathing comfortably on room air. * Reports five bowel movements today, loose, non-bloody. * PEG site: Feeds and flushes are going in without issues. * Oral intake: continues to tolerate pureed diet in addition to enteral feeds. * Antibiotics: currently on fluconazole * Urine output low at 0.35 mL/kg/hr (catheterized). * Renal function: BUN markedly elevated at 145, likely related to ESRD and catabolic state. * Anemia: Hgb dropped to 7.9 g/dL (from 9.1 yesterday), Hct 24.5%. No evidence of active GI bleeding externally or near PEG/IV sites. * Primary team considering hospice/supportive care given guarded prognosis. * GI team planning possible EGD tomorrow if hemoglobin continues to trend downward. Brief Summary of Todays Progress * GI symptoms stable, no overt GI bleeding. * PEG feeds tolerated; site improving with wound care. * Enteral + pureed oral nutrition continued. * Anemia worsening (Hgb 7.9) likely multifactorial (ESRD, chronic disease, possible occult GI loss). * Labs: BUN 145 (elevated), Cr 3.5. * Plan: monitor CBC/CMP, continue antibiotics, evaluate for EGD if anemia worsens. * Prognosis guarded; hospice consult ongoing. Review of Systems * GI: No abdominal pain, nausea, hematemesis, or melena. Loose stools, non- bloody. * Nutrition: Feeds tolerated. * Other systems: Stable, no new GI-related complaints. Objective vital signs Vital Sign Date Time Temp Pulse Resp B/P (MAP) Pulse Ox O2 Delivery O2 Flow Rate FiO2 06/24/25 10:50 82 20 100 06/24/25 10:44 Room Air* 0 21 06/24/25 10:07 117/75 06/24/25 09:00 97.6 97.6 Total Intake and Output 06/23/25 06/23/25 06/24/25 15:00 23:00 07:00 Intake Total 200 ml 325 ml 0 ml Output Total 200 ml 275 ml Balance 200 ml 125 ml -275 ml medications Current Medications Medications Dose Ordered Sig/Wai Route Start Time Stop Time Status Last Admin Dose Admin Enoxaparin Sodium 40 mg DAILY SC 06/17/25 10:00 UNV Acetaminophen 650 mg Q6HP PRN PO 06/17/25 07:45 Morphine Sulfate 2 mg Q4HPRN PRN IV 06/17/25 07:45 Nitroglycerin 0.4 mg Q5MINP PRN SL 06/17/25 07:45 Morphine Sulfate 2 mg Q30M PRN IV 06/17/25 07:45 Furosemide 40 mg DAILY PO 06/17/25 10:00 Cancel Tamsulosin HCl 0.4 mg DAILY PO 06/17/25 10:00 06/24/25 10:06 0.4 MG Carvedilol 6.25 mg Q12HR PO 06/17/25 10:00 06/24/25 10:07 6.25 MG Hydralazine HCl 10 mg Q6HR IV 06/17/25 12:00 06/20/25 12:51 10 MG Diagnostic Test (Pha) 1 strip ACHS 06/17/25 12:45 06/24/25 05:48 1 STRIP Insulin Human Regular ACHS SC 06/17/25 12:45 06/23/25 17:06 3 UNITS Dextrose 50 ml UD PRN IV 06/17/25 12:45 Amlodipine Besylate 10 mg DAILY GT 06/18/25 10:00 06/24/25 10:07 10 MG Enteral Nutritional Formula 1,000 ml 25ML/HR GT 06/21/25 08:45 06/23/25 21:28 1,000 ML Pantoprazole Sodium 40 mg BID IV 06/21/25 15:15 06/24/25 10:08 40 MG Albuterol 2.5 mg Q4HR NEB 06/23/25 10:00 06/24/25 10:44 2.5 MG Fluconazole 100 ml @ 100 mls/hr DAILY IV 06/23/25 10:00 06/24/25 10:14 100 MLS/HR Ipratropium [place] 0.5 mg Q4HR NEB 06/23/25 10:00 06/24/25 10:44 0.5 MG Bumetanide 1 mg BIDD IV 06/24/25 18:00 Sodium Bicarbonate 1,300 mg BID GT 06/24/25 10:00 Examination * General: Alert, no acute distress. * Abdomen: Soft, non-tender, nondistended. * PEG Site: Tube patent, mild drainage improving, no erythema or induration. * Bowel Sounds: Normoactive. * Stool: Loose, non-bloody. * Other: No jaundice, no ascites. laboratory and microbiology Laboratory Tests 06/24/25 05:28 Test 06/24/25 05:28 Range/Units Serum Glucose 81 74-106 mg/dL Microbiology Date/Time Source Procedure Growth Status 06/21/25 16:15 Abdomen Gram Stain - Final Resulted 06/21/25 16:15 Abdomen Wound Culture - Preliminary Resulted 06/17/25 15:20 Blood Blood Culture - Final NO GROWTH AFTER 5 DAYS OF INCUBATION. Complete Problem List/Assessment/Plan Problem List/Assessment/Plan Assessment 1. PEG Tube Site Infection improving, drainage minimal, continuing wound care. 2. Acute on Chronic Anemia worsening Hgb 7.9; multifactorial from ESRD 3. Severe Protein-Calorie Malnutrition ongoing PEG and oral feeds. 4. Rule Out Occult GI Bleed H&H trending down, EGD planned if anemia persists. 5. ESRD with Uremia and Catabolic State contributing to anemia and high BUN. Treatment Plan GI System Cool 1. PEG Tube Care * Continue BID hydrogen peroxide cleansing and dry dressing. * Monitor for increased drainage or cellulitis. * Continue Dicloxacillin for 3-day course. 2. Nutrition * Maintain Nepro feeds via PEG at current rate (25 mL/hr); continue flushing per protocol. * Continue pureed oral diet as tolerated. * Dietitian to adjust caloric/protein intake. 3. Anemia / GI Bleed Evaluation * Monitor CBC with H&H every 12 hours. * Transfuse PRBC if Hgb <7 g/dL or symptomatic. * Plan for EGD tomorrow if hemoglobin continues to fall to evaluate for upper GI source. * Continue IV Pantoprazole 40 mg BID for ulcer prophylaxis. 4. ESRD with Uremia * Primary team managing renal issues; monitor BUN/Cr closely. * Avoid nephrotoxic medications. #Primary team considering hospice care. Will monitor the patient closely. Case discussed in detail with the attending physician, including the clinical presentation, diagnostic workup, and comprehensive management plan. Plan discussed with: Patient, Other My Orders My Orders Orders - DOMINGUEZ AGUILERA RESIDENT Procedure Category Date Status Time Apply Barrier Cream TERESA 06/24/25 In Process 09:52 Dietary Evaluation Review Recommendations by RD: Dietary education by RD Comments: 1. TPN per pharmacy to meet pt's needs @ 100%. 2. When GT available, TF Nepro @25ml/hr (49g Protein 1062 kcal 436ml water) plus Dextrose 5% for an addition 200 kcal 3. continue iron supplementation 4. Reassess in 3-5 days Expected Outcomes/Goals: imprvoed nutrition status, avoid uremic symptoms, gradual wt gains. CC Plasma Assessment Blood Product Administration S: [id number] DOMINGUEZ AGUILERA RESIDENT Jun 24, 2025 11:26
[2025-06-24 11:38] LABS: Hematocrit 22.8 % (41.0-53.0); Mean Corpuscular Hemoglobin 28.4 pg (28.0-32.0); Mean Corpuscular Volume 87.3 fL (80.0-100.0); Nucleated Red Blood Cells % 1.2 %
[2025-06-24 11:40] LABS: Hemoglobin 7.4 g/dL (13.5-17.5)
[2025-06-24 11:49] LABS: Chloride 104 mmol/L (98-107)
[2025-06-24 11:50] LABS: Anion Gap 15 (5-15)
[2025-06-24 11:54] LABS: Calcium 6.8 mg/dL (8.7-10.4); Carbon Dioxide 15 mmol/L (20-31); Potassium 3.4 mmol/L (3.5-5.1); Sodium 134 mmol/L (136-145)
[2025-06-24 11:55] LABS: BUN/Creatinine Ratio 37.5 (10.0-20.0); Glucose 97 mg/dL (74-106)
[2025-06-24 11:57] LABS: Blood Urea Nitrogen 137 mg/dL (9-23)
--- NOTE | 2025-06-24 12:16 | DVHPN2 ---
Progress Note - Dictate Date Seen: Jun 24, 2025 Has the PT tested + for MRSA If YES, has PT been informed?: Yes Medical Necessity Reason Pt with a Central, PICC or Fol: Yes The following are medically ne: Smith Catheter Reason for smith catheter: Bladder Retention/Obstruc vital signs Vital Sign Date Time Temp Pulse Resp B/P (MAP) Pulse Ox O2 Delivery O2 Flow Rate FiO2 06/24/25 10:50 82 20 100 06/24/25 10:44 Room Air* 0 21 06/24/25 10:07 117/75 06/24/25 09:00 97.6 97.6 Total Intake and Output 06/23/25 06/23/25 06/24/25 15:00 23:00 07:00 Intake Total 200 ml 325 ml 0 ml Output Total 200 ml 275 ml Balance 200 ml 125 ml -275 ml medications Current Medications Medications Dose Ordered Sig/Wai Route Start Time Stop Time Status Last Admin Dose Admin Enoxaparin Sodium 40 mg DAILY SC 06/17/25 10:00 UNV Acetaminophen 650 mg Q6HP PRN PO 06/17/25 07:45 Morphine Sulfate 2 mg Q4HPRN PRN IV 06/17/25 07:45 Nitroglycerin 0.4 mg Q5MINP PRN SL 06/17/25 07:45 Morphine Sulfate 2 mg Q30M PRN IV 06/17/25 07:45 Furosemide 40 mg DAILY PO 06/17/25 10:00 Cancel Tamsulosin HCl 0.4 mg DAILY PO 06/17/25 10:00 06/24/25 10:06 0.4 MG Carvedilol 6.25 mg Q12HR PO 06/17/25 10:00 06/24/25 10:07 6.25 MG Hydralazine HCl 10 mg Q6HR IV 06/17/25 12:00 06/20/25 12:51 10 MG Diagnostic Test (Pha) 1 strip ACHS 06/17/25 12:45 06/24/25 05:48 1 STRIP Insulin Human Regular ACHS SC 06/17/25 12:45 06/23/25 17:06 3 UNITS Dextrose 50 ml UD PRN IV 06/17/25 12:45 Amlodipine Besylate 10 mg DAILY GT 06/18/25 10:00 06/24/25 10:07 10 MG Enteral Nutritional Formula 1,000 ml 25ML/HR GT 06/21/25 08:45 06/23/25 21:28 1,000 ML Pantoprazole Sodium 40 mg BID IV 06/21/25 15:15 06/24/25 10:08 40 MG Albuterol 2.5 mg Q4HR NEB 06/23/25 10:00 06/24/25 10:44 2.5 MG Fluconazole 100 ml @ 100 mls/hr DAILY IV 06/23/25 10:00 06/24/25 10:14 100 MLS/HR Ipratropium [place] 0.5 mg Q4HR NEB 06/23/25 10:00 06/24/25 10:44 0.5 MG Bumetanide 1 mg BIDD IV 06/24/25 18:00 Sodium Bicarbonate 1,300 mg BID GT 06/24/25 10:00 objective General Appearance: alert, no distress HEENT: EOMI, PERRLA, normal external inspect of ears, no icterus, no nasal drainage Neck: no carotid bruit, no jugular venous distention (JVD), no lymphadenopathy Chest: normal thorax Respiratory: clear to auscultation, normal air movement Cardiovascular: regular rate and rhythm, no diastolic murmur, no jugular venous distention (JVD), no rub, no systolic murmur Abdominal: soft, no hepatomegaly, no mass, no splenomegaly, no tenderness Genitourinary: grossly normal external Musculoskeletal: no joint tenderness, no swelling Extremities: normal pulses, no calf tenderness, no clubbing, no cyanosis, no edema Skin: no bruising, no jaundice, no rash Neurological: alert, No focal deficit laboratory and microbiology Laboratory Tests 06/24/25 11:18 Test 06/24/25 11:18 Range/Units Serum Glucose 97 74-106 mg/dL Problem List 1. Dislodged G-tube GI consult for replacement, IV fluids, monitor 2. Sepsis due to acute cystitis IV antibiotics, IV fluids, monitor blood cultures, monitor 3. Type 2 diabetes with hyperglycemia Insulin sliding scale, monitor 4. Anemia of chronic disease IV iron, monitor 5. Pleural effusion Monitor 6. History of CVA Monitor 7. Hypertensive urgency Antihypertensives, monitor 8. LISANDRO with ATN on CKD 3B IV fluids, nephrology consult, monitor 9. Hypernatremia Monitor CMP, monitor 10. sever protein deficiency Monitor Assessment/Plan Subjective: Patient's mentation is at baseline. Objective: I spoke with patient's mother and patient's father at bedside. 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 Patient's chest x-ray showed worsening opacities. Patient was transitioned to vancomycin and doxycycline via NG tube. Patient was septic related to UTI. Patient had a chronic Smith catheter. Plan: Continue chest physiotherapy and Med-Neb treatment. Antibiotics with vancomycin and doxycycline. Patient's LISANDRO has resolved. Urine function is now at baseline. Discussed plan of care at length with patient's mother. I also discussed that patient's condition most likely will continue to deteriorate in the future. Patient is very weak lungs it is more prone to pneumonia. Mother wishes to still be a DNR at this time and to continue hospice services outpatient. Did consult social work coordinator to start the process of discharge planning for Saturday. Dietary Evaluation Review Recommendations by RD: Dietary education by RD Comments: 1. TPN per pharmacy to meet pt's needs @ 100%. 2. When GT available, TF Nepro @25ml/hr (49g Protein 1062 kcal 436ml water) plus Dextrose 5% for an addition 200 kcal 3. continue iron supplementation 4. Reassess in 3-5 days Expected Outcomes/Goals: imprvoed nutrition status, avoid uremic symptoms, gradual wt gains. Plan discussed with: Patient, Other CC Plasma Assessment Blood Product Administration S: [id number] RAÚL STEEL NP Jun 24, 2025 12:16
[2025-06-24] MEDS ORDERED: VANCOMYCIN PER PHARMACY 0 MG IV SCH (12:30)
[2025-06-24] MEDS: CALCIUM GLUC 1,000mg/50ml-NS 50 ML IV SCH (12:45)
[2025-06-24] MEDS: DOXYCYCLINE 100 MG TAB/CAP GT SCH (15:45)
[2025-06-24] MEDS: FERROUS SULFATE 325mg EC TAB PO SCH (15:45)
[2025-06-24] MEDS: VANCOMYCIN 1GM/200ML PM 200 ML IV ONE (16:30)
[2025-06-24] MEDS: BUMETANIDE 2.5mg/10ml (0.25 mg/ml) INJ IV SCH (18:00)
[2025-06-25] VITALS (22 sets, daily range): BP systolic 100–108; BP diastolic 52–78; PULSE 55–81; RESP 15–21; TEMP 97.2–98.1; O2SAT 90–100
[2025-06-25 06:25] LABS: Anion Gap 15 (5-15); Chloride 104 mmol/L (98-107)
[2025-06-25 06:27] LABS: Calcium 6.4 mg/dL (8.7-10.4); Carbon Dioxide 16 mmol/L (20-31); Potassium 2.9 mmol/L (3.5-5.1); Sodium 135 mmol/L (136-145)
[2025-06-25 06:31] LABS: BUN/Creatinine Ratio 38.1 (10.0-20.0)
[2025-06-25 06:34] LABS: Glucose 110 mg/dL (74-106)
[2025-06-25 06:36] LABS: Blood Urea Nitrogen 147 mg/dL (9-23)
[2025-06-25] MEDS: POTASSIUM CHL 20MEQ/100ML 100 ML IV SCH (06:45)
[2025-06-25 09:50] LABS: Alanine Aminotransferase 23 U/L (7-40); Albumin 2.1 g/dL (3.2-4.8); Alkaline Phosphatase 321 U/L (46-116); Bilirubin, Direct < 0.1 mg/dL (<0.3); Bilirubin, Total < 0.2 mg/dL (0.2-1.0); Total Protein 4.5 g/dL (5.7-8.2)
[2025-06-25] MEDS: POTASSIUM EFFERVESENT TAB 25 MEQ GT ONE (10:14)
--- NOTE | 2025-06-25 10:19 | DVH ---
CHEST RADIOGRAPH Indication: f/u Technique: Single frontal view of the chest was obtained Comparison: XY CHEST XRAY 1 VIEW on DOS: 06/23/25, XY CHEST PORTABLE on DOS: 06/21/25, XY CHEST PORTABL E on DOS: 06/19/25, XY CHEST PORTABLE on DOS: 06/17/25, XY CHEST XRAY 1 VIEW on DOS: 05/23/25, XY CHEST XRAY 1 VIEW on DOS: 06/23/25 FINDINGS: Evaluation is degraded by patient positioning. The cardiomediastinal silhouette appears stable in siz e. There is increased scattered airspace opacity bilaterally, possibly worsened by low inspiratory vo lume on the current study. There is no large pleural effusion. There is no pneumothorax. No acute fra cture is identified. IMPRESSION: Increased scattered airspace opacity bilaterally. This may be secondary to the decreased inspiratory volume on the current study.
[2025-06-25] MEDS ORDERED: VANCOMYCIN 1GM/200ML PM 200 ML IV ONE (13:00)
--- NOTE | 2025-06-25 15:37 | DVHPN2 ---
Progress Note Date Seen: Jun 25, 2025 Resident Creating Document: DOMINGUEZ AGUILERA RESIDENT Has the PT tested + for MRSA If YES, has PT been informed?: Yes Medical Necessity Reason Pt with a Central, PICC or Fol: Yes The following are medically ne: Smith Catheter Reason for smith catheter: Bladder Retention/Obstruc Subjective Review of Systems 44-year-old male with PEG tube dependence, ESRD, severe protein-calorie malnutrition, anemia, and recent PEG site infection was seen at bedside today. The patients G-tube is functioning well, feeds are infusing without issues, and medications are being administered through the tube. Mild purulent drainage persists at the G-tube insertion site but continues to improve with wound care. The patient is hemodynamically stable, tolerating enteral nutrition. No nausea, vomiting, hematemesis, or melena reported. Loose bowel movements continue, non- bloody. The patients mother has requested DNR status and wishes to proceed with outpatient hospice services after discharge. Discharge planning is in progress for Saturday. The patients antibiotics were transitioned to IV Vancomycin for coverage of MRSA colonization and possible wound involvement. Sepsis secondary to UTI persists; chronic Smith catheter remains in place. Chest X-ray shows worsening pulmonary opacities. LISANDRO has resolved; renal function is back to baseline. Today, H&H bloodwork has been ordered to monitor anemia. Brief Summary of Todays Progress * PEG site: mild drainage, improving. * Feeds: Nepro via PEG at 25 mL/hr; oral pureed diet continued and tolerated. * Antibiotics: Transitioned to Vancomycin IV. * Labs: H&H ordered today; last Hgb 7.9. * Sepsis: ongoing, secondary to chronic Smith-related UTI, managed with antibiotics. * Renal: LISANDRO resolved; creatinine at baseline (~3.2). * Palliative care: Patient is now DNR; hospice arranged for outpatient transition. Objective vital signs Vital Sign Date Time Temp Pulse Resp B/P (MAP) Pulse Ox O2 Delivery O2 Flow Rate FiO2 06/25/25 13:53 97.3 71 20 108/70 (83) 94 97.3 06/25/25 13:29 Room Air* 0 21 Total Intake and Output 06/24/25 06/24/25 06/25/25 15:00 23:00 07:00 Intake Total 100 ml 0 ml 50 ml Output Total 300 ml 450 ml Balance 100 ml -300 ml -400 ml medications Current Medications Medications Dose Ordered Sig/Wai Route Start Time Stop Time Status Last Admin Dose Admin Enoxaparin Sodium 40 mg DAILY SC 06/17/25 10:00 UNV Acetaminophen 650 mg Q6HP PRN PO 06/17/25 07:45 Morphine Sulfate 2 mg Q4HPRN PRN IV 06/17/25 07:45 Nitroglycerin 0.4 mg Q5MINP PRN SL 06/17/25 07:45 Morphine Sulfate 2 mg Q30M PRN IV 06/17/25 07:45 Furosemide 40 mg DAILY PO 06/17/25 10:00 Cancel Tamsulosin HCl 0.4 mg DAILY PO 06/17/25 10:00 06/25/25 10:17 0.4 MG Carvedilol 6.25 mg Q12HR PO 06/17/25 10:00 06/25/25 10:25 6.25 MG Hydralazine HCl 10 mg Q6HR IV 06/17/25 12:00 06/20/25 12:51 10 MG Diagnostic Test (Pha) 1 strip ACHS 06/17/25 12:45 06/25/25 11:54 1 STRIP Insulin Human Regular ACHS SC 06/17/25 12:45 06/23/25 17:06 3 UNITS Dextrose 50 ml UD PRN IV 06/17/25 12:45 Amlodipine Besylate 10 mg DAILY GT 06/18/25 10:00 06/25/25 10:25 10 MG Enteral Nutritional Formula 1,000 ml 25ML/HR GT 06/21/25 08:45 06/23/25 21:28 1,000 ML Pantoprazole Sodium 40 mg BID IV 06/21/25 15:15 06/25/25 10:29 40 MG Albuterol 2.5 mg Q4HR NEB 06/23/25 10:00 06/25/25 13:29 2.5 MG Fluconazole 100 ml @ 100 mls/hr DAILY IV 06/23/25 10:00 06/25/25 10:10 100 MLS/HR Ipratropium [place] 0.5 mg Q4HR NEB 06/23/25 10:00 06/25/25 13:29 0.5 MG Bumetanide 1 mg BIDD IV 06/24/25 18:00 06/25/25 05:57 1 MG Sodium Bicarbonate 1,300 mg BID GT 06/24/25 10:00 06/25/25 10:34 1,300 MG Ferrous Sulfate 325 mg TIDWM PO 06/24/25 12:15 06/25/25 12:00 325 MG Doxycycline Monohydrate 100 mg Q12HR GT 06/24/25 12:30 06/25/25 10:15 100 MG Examination * General: Alert, appears fatigued but in no distress. * Abdomen: Soft, non-tender, no organomegaly. * PEG Site: Tube in place, mild purulent drainage with improving local infection; no erythema or cellulitis. * Bowel Sounds: Normoactive. * Stool: Loose, non-bloody. * Other: No jaundice, no ascites. laboratory and microbiology Laboratory Tests 06/25/25 04:52 06/24/25 11:18 Test 06/25/25 04:52 Range/Units Serum Glucose 110 H 74-106 mg/dL Microbiology Date/Time Source Procedure Growth Status 06/21/25 16:15 Abdomen Gram Stain - Final Complete 06/21/25 16:15 Wound Culture - Final Enterococcus faecium Yeast, not Diana albicans Presumptive Diana tropicalis Complete 06/17/25 15:20 Blood Blood Culture - Final NO GROWTH AFTER 5 DAYS OF INCUBATION. Complete Problem List/Assessment/Plan Problem List/Assessment/Plan Assessment 1. PEG Tube Site infection mild drainage, improving; on vancomycin for MRSA coverage. 2. Acute on Chronic Anemia Hgb pending today; previously 7.9 g/dL; no overt GI bleed. 3. Severe Protein-Calorie Malnutrition on PEG and pureed oral feeds. 4. Rule Out Occult GI Bleed stool occult pending; consider endoscopic evaluation only if clinically indicated due to patients hospice status. 5. Sepsis from Chronic Smith Catheter UTI ongoing; antibiotic management continued. 6. MRSA Colonization infection control precautions maintained. Treatment Plan GI System Cool 1. PEG Tube Care * Continue local wound care with hydrogen peroxide BID and dry dressing. * Monitor for any signs of abscess or cellulitis. * Continue Vancomycin IV for MRSA coverage until infection resolves. 2. Nutrition * Continue Nepro feeds via PEG @ 25 mL/hr, monitor tolerance. * Continue pureed diet orally as tolerated. * Maintain nutrition support until hospice transition. 3. Anemia and GI Bleed Prophylaxis * Monitor H&H daily; transfuse PRBC only if Hgb <7 g/dL or symptomatic. * Continue Pantoprazole 40 mg IV BID. * EGD planned only if hemoglobin further declines and aligns with patient/family goals of care. 4. Infection Control * Maintain contact precautions for MRSA. * Continue monitoring PEG site culture results and adjust therapy as needed. Thank you for the consult and allowing to take part in providing care for this patient. Signing off from GI stand point. #Primary team considering hospice care. Will monitor the patient closely. Case discussed in detail with the attending physician, including the clinical presentation, diagnostic workup, and comprehensive management plan. Plan discussed with: Other (RN) Dietary Evaluation Review Recommendations by RD: Dietary education by RD Comments: 1. TPN per pharmacy to meet pt's needs @ 100%. 2. When GT available, TF Nepro @25ml/hr (49g Protein 1062 kcal 436ml water) plus Dextrose 5% for an addition 200 kcal 3. continue iron supplementation 4. Reassess in 3-5 days Expected Outcomes/Goals: imprvoed nutrition status, avoid uremic symptoms, gradual wt gains. CC Plasma Assessment Blood Product Administration S: [id number] DOMINGUEZ AGUILERA RESIDENT Jun 25, 2025 15:37
--- NOTE | 2025-06-25 17:22 | DVHPN2 ---
Progress Note Date Seen: Jun 25, 2025 Has the PT tested + for MRSA If YES, has PT been informed?: Yes Medical Necessity Reason Pt with a Central, PICC or Fol: Yes The following are medically ne: Smith Catheter Reason for smith catheter: Bladder Retention/Obstruc Subjective Review of Systems: Not Done (unable to obtain ) Objective vital signs Vital Sign Date Time Temp Pulse Resp B/P (MAP) Pulse Ox O2 Delivery O2 Flow Rate FiO2 06/25/25 16:55 97.2 55 21 108/52 (70) 94 97.2 06/25/25 13:29 Room Air* 0 21 Total Intake and Output 06/24/25 06/24/25 06/25/25 15:00 23:00 07:00 Intake Total 100 ml 0 ml 50 ml Output Total 300 ml 450 ml Balance 100 ml -300 ml -400 ml medications Current Medications Medications Dose Ordered Sig/Wai Route Start Time Stop Time Status Last Admin Dose Admin Enoxaparin Sodium 40 mg DAILY SC 06/17/25 10:00 UNV Acetaminophen 650 mg Q6HP PRN PO 06/17/25 07:45 Morphine Sulfate 2 mg Q4HPRN PRN IV 06/17/25 07:45 Nitroglycerin 0.4 mg Q5MINP PRN SL 06/17/25 07:45 Morphine Sulfate 2 mg Q30M PRN IV 06/17/25 07:45 Furosemide 40 mg DAILY PO 06/17/25 10:00 Cancel Tamsulosin HCl 0.4 mg DAILY PO 06/17/25 10:00 06/25/25 10:17 0.4 MG Carvedilol 6.25 mg Q12HR PO 06/17/25 10:00 06/25/25 10:25 6.25 MG Hydralazine HCl 10 mg Q6HR IV 06/17/25 12:00 06/20/25 12:51 10 MG Diagnostic Test (Pha) 1 strip ACHS 06/17/25 12:45 06/25/25 11:54 1 STRIP Insulin Human Regular ACHS SC 06/17/25 12:45 06/23/25 17:06 3 UNITS Dextrose 50 ml UD PRN IV 06/17/25 12:45 Amlodipine Besylate 10 mg DAILY GT 06/18/25 10:00 06/25/25 10:25 10 MG Enteral Nutritional Formula 1,000 ml 25ML/HR GT 06/21/25 08:45 06/23/25 21:28 1,000 ML Pantoprazole Sodium 40 mg BID IV 06/21/25 15:15 06/25/25 10:29 40 MG Albuterol 2.5 mg Q4HR [facility] [place] 06/23/25 10:00 06/25/25 13:29 2.5 MG Fluconazole 100 ml @ 100 mls/hr DAILY IV 06/23/25 10:00 06/25/25 10:10 100 MLS/HR Ipratropium [place] 0.5 mg Q4HR [facility] [place] 06/23/25 10:00 06/25/25 13:29 0.5 MG Bumetanide 1 mg BIDD IV 06/24/25 18:00 06/25/25 05:57 1 MG Sodium Bicarbonate 1,300 mg BID 06/24/25 10:00 06/25/25 10:34 1,300 MG Ferrous Sulfate 325 mg TIDWM PO 06/24/25 12:15 06/25/25 12:00 325 MG Doxycycline Monohydrate 100 mg Q12HR GT 06/24/25 12:30 06/25/25 10:15 100 MG Albumin Human 100 ml @ 100 mls/hr Q8H IV 06/25/25 16:00 06/26/25 08:59 Levofloxacin 100 ml @ 100 mls/hr Q48H IV 06/27/25 16:45 Examination: GENERAL:Abnormal, LUNGS:Normal, CVS:Normal, ABDOMEN:Normal, SKIN:Normal laboratory and microbiology Laboratory Tests 06/25/25 04:52 06/24/25 11:18 Test 06/25/25 04:52 Range/Units Serum Glucose 110 H 74-106 mg/dL Microbiology Date/Time Source Procedure Growth Status 06/21/25 16:15 Abdomen Gram Stain - Final Complete 06/21/25 16:15 Wound Culture - Final Enterococcus faecium Yeast, not Diana albicans Presumptive Diana tropicalis Complete 06/17/25 15:20 Blood Blood Culture - Final NO GROWTH AFTER 5 DAYS OF INCUBATION. Complete Labs and/or images reviewed: Labs reviewed by me, Image(s) reviewed by me Problem List/Assessment/Plan Problem List/Assessment/Plan 1. Dislodged G-tube GI consult for replacement, IV fluids, monitor 2. Sepsis due to acute cystitis IV antibiotics, IV fluids, monitor blood cultures, monitor 3. Type 2 diabetes with hyperglycemia Insulin sliding scale, monitor 4. Anemia of chronic disease IV iron, monitor 5. Pleural effusion Monitor 6. History of CVA Monitor 7. Hypertensive urgency Antihypertensives, monitor 8. LISANDRO with ATN on CKD 3B IV fluids, nephrology consult, monitor 9. Hypernatremia Monitor CMP, monitor 10. sever protein deficiency Monitor Assessment/Plan Subjective: Patient's mentation is at baseline. Objective: Case was discussed with patient's mother and father they would like patient discharged home on hospice when he is ready. 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 Patient's chest x-ray showed worsening opacities. Patient now transitioned to IV Levaquin. Patient was septic related to UTI. Patient had a chronic Smith catheter. Patient became hypotensive, started IV albumin. Potassium is 2.9, replaced Plan: Continue chest physiotherapy and Med-Neb treatment. Start IV Levaquin Patient's LISANDRO has resolved. Urine function is now at baseline. Discussed plan of care at length with patient's mother. Mother wishes to still be a DNR at this time and to continue hospice services outpatient. Monitor chest x-ray, monitor electrolytes Plan discussed with: Other (mother) My Orders My Orders Orders - ASIYA JACQUES Procedure Category Date Status Time Albumin 25% (Albutein) PHA 06/25/25 In Process 16:00 Levofloxacin 250mg PHA 06/27/25 In Process (Levaquin 250mg) 16:45 Dietary Evaluation Review Recommendations by RD: Dietary education by RD Comments: 1. TPN per pharmacy to meet pt's needs @ 100%. 2. When GT available, TF Nepro @25ml/hr (49g Protein 1062 kcal 436ml water) plus Dextrose 5% for an addition 200 kcal 3. continue iron supplementation 4. Reassess in 3-5 days Expected Outcomes/Goals: imprvoed nutrition status, avoid uremic symptoms, gradual wt gains. Date of Service: Jun 25, 2025 Billing Provider: MARIBEL WHALEN MD Common Visit Codes: [id number] INP/OBS CARE (MOD) CC Plasma Assessment Blood Product Administration S: [id number] ASIYA JACQUES Jun 25, 2025 17:22
[2025-06-25] MEDS: ALBUMIN 25% 100 ML IV SCH (18:30)
--- NOTE | 2025-06-25 21:09 | DVHPN2 ---
Progress Note - Dictate Date Seen: Jun 25, 2025 Has the PT tested + for MRSA If YES, has PT been informed?: Yes Medical Necessity Reason Pt with a Central, PICC or Fol: Yes The following are medically ne: Smith Catheter Reason for smith catheter: Bladder Retention/Obstruc Subjective no change in condition vital signs Vital Sign Date Time Temp Pulse Resp B/P (MAP) Pulse Ox O2 Delivery O2 Flow Rate FiO2 06/25/25 20:30 61 17 95 Nasal Cannula* 2 28 06/25/25 17:44 105/64 06/25/25 16:55 97.2 97.2 Total Intake and Output 06/24/25 06/24/25 06/25/25 15:00 23:00 07:00 Intake Total 100 ml 0 ml 50 ml Output Total 300 ml 450 ml Balance 100 ml -300 ml -400 ml medications Current Medications Medications Dose Ordered Sig/Wai Route Start Time Stop Time Status Last Admin Dose Admin Enoxaparin Sodium 40 mg DAILY SC 06/17/25 10:00 UNV Acetaminophen 650 mg Q6HP PRN PO 06/17/25 07:45 Morphine Sulfate 2 mg Q4HPRN PRN IV 06/17/25 07:45 Nitroglycerin 0.4 mg Q5MINP PRN SL 06/17/25 07:45 Morphine Sulfate 2 mg Q30M PRN IV 06/17/25 07:45 Furosemide 40 mg DAILY PO 06/17/25 10:00 Cancel Tamsulosin HCl 0.4 mg DAILY PO 06/17/25 10:00 06/25/25 10:17 0.4 MG Carvedilol 6.25 mg Q12HR PO 06/17/25 10:00 06/25/25 10:25 6.25 MG Hydralazine HCl 10 mg Q6HR IV 06/17/25 12:00 06/20/25 12:51 10 MG Diagnostic Test (Pha) 1 strip ACHS 06/17/25 12:45 06/25/25 17:00 1 STRIP Insulin Human Regular ACHS SC 06/17/25 12:45 06/23/25 17:06 3 UNITS Dextrose 50 ml UD PRN IV 06/17/25 12:45 Amlodipine Besylate 10 mg DAILY GT 06/18/25 10:00 06/25/25 10:25 10 MG Enteral Nutritional Formula 1,000 ml 25ML/HR GT 06/21/25 08:45 06/23/25 21:28 1,000 ML Pantoprazole Sodium 40 mg BID IV 06/21/25 15:15 06/25/25 10:29 40 MG Albuterol 2.[address] [facility] 06/23/25 10:00 06/25/25 18:19 2.5 MG Fluconazole 100 ml @ 100 mls/hr DAILY IV 06/23/25 10:00 06/25/25 10:10 100 MLS/HR Ipratropium [place] 0.5 mg Q[address] [facility] 06/23/25 10:00 06/25/25 18:19 0.5 MG Bumetanide 1 mg BIDD IV 06/24/25 18:00 06/25/25 05:57 1 MG Sodium Bicarbonate 1,300 mg BID 06/24/25 10:00 06/25/25 10:34 1,300 MG Ferrous Sulfate 325 mg TIDWM PO 06/24/25 12:15 06/25/25 18:00 325 MG Doxycycline Monohydrate 100 mg Q12HR GT 06/24/25 12:30 06/25/25 10:15 100 MG Albumin Human 100 ml @ 100 mls/hr Q8H IV 06/25/25 16:00 06/26/25 08:59 06/25/25 18:30 100 MLS/HR Levofloxacin 100 ml @ 100 mls/hr Q48H IV 06/27/25 16:45 objective lethargic HEENT: Normocephalic Lungs:good air entry bilaterally CVS: S1, S2 regular rate rhythm Abdomen: Soft Extremities: No edema REGISTERED NURSE CARDIAC: Quadriplegic as per history laboratory and microbiology Laboratory Tests 06/25/25 04:52 06/24/25 11:18 Test 06/25/25 04:52 Range/Units Serum Glucose 110 H 74-106 mg/dL Problem List * Acute kidney injury with a disproportionate increase in BUN probably s econdary to GI bleed/catabolic state * Underlying chronic kidney disease 4 * Hypernatremia,resolved * Metabolic acidosis. * Cachexia. * Obstructive uropathy, neurogenic bladder. Patient has a indwelling Smith catheter * Encephalopathy and uremia. * Severe anemia. * Quadriplegia. * Malfunction of feeding tube. Assessment/Plan worsening gfr Bumex 1 mg IV BID Patient's baseline creatinine is around 3.2. Increased sodium bicarbonate to 1300 MG BID consider hospice /supportive care Prognosis guarded Dietary Evaluation Review Recommendations by RD: Dietary education by RD Comments: 1. TPN per pharmacy to meet pt's needs @ 100%. 2. When GT available, TF Nepro @25ml/hr (49g Protein 1062 kcal 436ml water) plus Dextrose 5% for an addition 200 kcal 3. continue iron supplementation 4. Reassess in 3-5 days Expected Outcomes/Goals: imprvoed nutrition status, avoid uremic symptoms, gradual wt gains. Plan discussed with: Other CC Plasma Assessment Blood Product Administration S: [id number] RAÚL YOST MD Jun 25, 2025 21:09
[2025-06-26] VITALS (17 sets, daily range): BP systolic 58–158; BP diastolic 30–93; PULSE 32–64; RESP 14–32; TEMP 92.7–97.3; O2SAT 68–96
[2025-06-26 07:41] LABS: Hematocrit 23.2 % (41.0-53.0); Hemoglobin 7.6 g/dL (13.5-17.5); Mean Corpuscular Hemoglobin 29.1 pg (28.0-32.0); Mean Corpuscular Volume 89.1 fL (80.0-100.0)
[2025-06-26 07:44] LABS: Chloride 106 mmol/L (98-107); Potassium 4.6 mmol/L (3.5-5.1)
[2025-06-26 07:45] LABS: Anion Gap 14 (5-15)
[2025-06-26 07:49] LABS: Calcium 6.5 mg/dL (8.7-10.4); Carbon Dioxide 15 mmol/L (20-31); Sodium 135 mmol/L (136-145)
[2025-06-26 07:51] LABS: BUN/Creatinine Ratio 34.4 (10.0-20.0); Glucose 77 mg/dL (74-106)
[2025-06-26 07:55] LABS: Blood Urea Nitrogen 134 mg/dL (9-23)
[2025-06-26 08:15] LABS: Total Cells Counted 100.0 (100)
--- NOTE | 2025-06-26 08:27 | DVH ---
CHEST RADIOGRAPH Indication: pna Technique: Single frontal view of the chest was obtained COMPARISON: XY CHEST XRAY 1 VIEW on DOS: 06/25/25, XY CHEST XRAY 1 VIEW on DOS: 06/23/25, XY CHEST MORGAN BLE on DOS: 06/21/25, XY CHEST PORTABLE on DOS: 06/19/25, XY CHEST PORTABLE on DOS: 06/17/25 FINDINGS: Lines and Tubes: None Lungs: Increased severe multifocal airspace disease Pleura: No effusion. No pneumothorax. Cardiomediastinal contours: Cardiomegaly Bones: Unremarkable IMPRESSION: Increased severe multifocal airspace disease.
[2025-06-26] MEDS: ALBUMIN 25% 100 ML IV ONE (10:00)
[2025-06-26] MEDS: ACETYLCYSTEINE 10 %(100MG/ML) SOL 4ML NEB SCH (10:20)
--- NOTE | 2025-06-26 11:21 | DVH ---
Upper Extremity Venous Duplex Clinical History: r,o DVT Comparison: US BILAT LOWER DVT on DOS: 12/30/24 Technique: Duplex doppler evaluation of the venous system of the right lower neck and upper extremity including color doppler and spectral/pulsed waveform analysis was performed. Findings: The internal jugular vein demonstrates appropriate compressibility and waveform variability. The subclavian vein is patent on color Doppler evaluation without intraluminal thrombus and demonstra mellisa waveform variability. The visualized portion of the brachiocephalic vein is patent on color Doppler evaluation without intr aluminal thrombus and demonstrates waveform variability. The axillary vein demonstrates appropriate compressibility and waveform variability. The brachial veins demonstrate appropriate compressibility and patency on Doppler evaluation. The basilic vein demonstrates appropriate compressibility and patency on Doppler evaluation. The cephalic vein demonstrates appropriate compressibility and patency on Doppler evaluation. Impression: 1. No venous thrombus identified in the right upper extremity vessels evaluated above. 2. If clinical concern/symptoms persist or worsen, short-interval follow-up study is suggested.
--- NOTE | 2025-06-26 12:10 | DVHPN2 ---
Progress Note - Dictate Date Seen: Jun 26, 2025 Has the PT tested + for MRSA If YES, has PT been informed?: Yes Medical Necessity Reason Pt with a Central, PICC or Fol: Yes The following are medically ne: Smith Catheter Reason for smith catheter: Bladder Retention/Obstruc Subjective Obtunded Family at bedside vital signs Vital Sign Date Time Temp Pulse Resp B/P (MAP) Pulse Ox O2 Delivery O2 Flow Rate FiO2 06/26/25 10:30 91 Non-Rebreather 15.0 06/26/25 10:30 N/A 06/26/25 10:30 63 28 06/26/25 10:00 116/94 06/26/25 09:00 96.7 96.7 Total Intake and Output 06/25/25 06/25/25 06/26/25 15:00 23:00 07:00 Intake Total 300 ml 10 ml 550 ml Output Total 250 ml 100 ml Balance 300 ml -240 ml 450 ml medications Current Medications Medications Dose Ordered Sig/Wai Route Start Time Stop Time Status Last Admin Dose Admin Enoxaparin Sodium 40 mg DAILY SC 06/17/25 10:00 UNV Acetaminophen 650 mg Q6HP PRN PO 06/17/25 07:45 Nitroglycerin 0.4 mg Q5MINP PRN SL 06/17/25 07:45 Furosemide 40 mg DAILY PO 06/17/25 10:00 Cancel Tamsulosin HCl 0.4 mg DAILY PO 06/17/25 10:00 06/26/25 10:01 0.4 MG Carvedilol 6.25 mg Q12HR PO 06/17/25 10:00 06/25/25 10:25 6.25 MG Hydralazine HCl 10 mg Q6HR IV 06/17/25 12:00 06/20/25 12:51 10 MG Diagnostic Test (Pha) 1 strip ACHS 06/17/25 12:45 06/26/25 06:27 1 STRIP Insulin Human Regular ACHS SC 06/17/25 12:45 06/25/25 23:00 2 UNITS Dextrose 50 ml UD PRN IV 06/17/25 12:45 Amlodipine Besylate 10 mg DAILY GT 06/18/25 10:00 06/25/25 10:25 10 MG Enteral Nutritional Formula 1,000 ml 25ML/HR GT 06/21/25 08:45 06/23/25 21:28 1,000 ML Pantoprazole Sodium 40 mg BID IV 06/21/25 15:15 06/26/25 10:01 40 MG Albuterol 2.5 mg Q4HR NEB 06/23/25 10:00 06/26/25 10:20 2.5 MG Fluconazole 100 ml @ 100 mls/hr DAILY IV 06/23/25 10:00 06/26/25 10:01 100 MLS/HR Ipratropium [place] 0.5 mg Q4HR NEB 06/23/25 10:00 06/26/25 10:20 0.5 MG Bumetanide 1 mg BIDD IV 06/24/25 18:00 06/25/25 05:57 1 MG Sodium Bicarbonate 1,300 mg BID GT 06/24/25 10:00 06/26/25 10:01 1,300 MG Ferrous Sulfate 325 mg TIDWM PO 06/24/25 12:15 06/25/25 18:00 325 MG Doxycycline Monohydrate 100 mg Q12HR GT 06/24/25 12:30 06/26/25 10:01 100 MG Levofloxacin 100 ml @ 100 mls/hr Q48H IV 06/27/25 16:45 Acetylcysteine 100 mg Q4HR NEB 06/26/25 10:00 06/26/25 10:20 100 MG Cefepime HCl 50 ml @ 12.5 mls/hr DAILY IV 06/26/25 10:00 objective Obtunded HEENT: Normocephalic Lungs:good air entry bilaterally CVS: S1, S2 regular rate rhythm Abdomen: Soft Extremities: Edema present [employer]: Quadriplegic as per history laboratory and microbiology Laboratory Tests 06/26/25 05:55 06/26/25 05:50 Test 06/26/25 05:50 Range/Units Serum Glucose 77 74-106 mg/dL Problem List * Acute kidney injury with a disproportionate increase in BUN probably s econdary to GI bleed/catabolic state * Underlying chronic kidney disease 4 * Hypernatremia,resolved * Metabolic acidosis. * Cachexia. * Obstructive uropathy, neurogenic bladder. Patient has a indwelling Smith catheter * Encephalopathy and uremia. * Severe anemia. * Quadriplegia. * Malfunction of feeding tube. Assessment/Plan Continue with supportive measures. Overall prognosis of the patient is poor Hospice evaluation Dietary Evaluation Review Recommendations by RD: Dietary education by RD Comments: 1. TPN per pharmacy to meet pt's needs @ 100%. 2. When GT available, TF Nepro @25ml/hr (49g Protein 1062 kcal 436ml water) plus Dextrose 5% for an addition 200 kcal 3. continue iron supplementation 4. Reassess in 3-5 days Expected Outcomes/Goals: imprvoed nutrition status, avoid uremic symptoms, gradual wt gains. Plan discussed with: Other CC Plasma Assessment Blood Product Administration S: [id number] RAÚL YOST MD Jun 26, 2025 12:10
--- NOTE | 2025-06-26 12:33 | DVHPN2 ---
Progress Note - Dictate Date Seen: Jun 26, 2025 Has the PT tested + for MRSA If YES, has PT been informed?: Yes Medical Necessity Reason Pt with a Central, PICC or Fol: Yes The following are medically ne: Smith Catheter Reason for smith catheter: Bladder Retention/Obstruc Subjective Obtunded, bladder retention, Smith catheter Patient is tolerating gastrostomy tube feedings Gastrostomy tube site appears equipment or machinery cleaner vital signs Vital Sign Date Time Temp Pulse Resp B/P (MAP) Pulse Ox O2 Delivery O2 Flow Rate FiO2 06/26/25 10:30 91 Non-Rebreather 15.0 06/26/25 10:30 N/A 06/26/25 10:30 63 28 06/26/25 10:00 116/94 06/26/25 09:00 96.7 96.7 Total Intake and Output 06/25/25 06/25/25 06/26/25 15:00 23:00 07:00 Intake Total 300 ml 10 ml 550 ml Output Total 250 ml 100 ml Balance 300 ml -240 ml 450 ml medications Current Medications Medications Dose Ordered Sig/Wai Route Start Time Stop Time Status Last Admin Dose Admin Enoxaparin Sodium 40 mg DAILY SC 06/17/25 10:00 UNV Acetaminophen 650 mg Q6HP PRN PO 06/17/25 07:45 Nitroglycerin 0.4 mg Q5MINP PRN SL 06/17/25 07:45 Furosemide 40 mg DAILY PO 06/17/25 10:00 Cancel Tamsulosin HCl 0.4 mg DAILY PO 06/17/25 10:00 06/26/25 10:01 0.4 MG Carvedilol 6.25 mg Q12HR PO 06/17/25 10:00 06/25/25 10:25 6.25 MG Hydralazine HCl 10 mg Q6HR IV 06/17/25 12:00 06/20/25 12:51 10 MG Diagnostic Test (Pha) 1 strip ACHS 06/17/25 12:45 06/26/25 06:27 1 STRIP Insulin Human Regular ACHS SC 06/17/25 12:45 06/25/25 23:00 2 UNITS Dextrose 50 ml UD PRN IV 06/17/25 12:45 Amlodipine Besylate 10 mg DAILY GT 06/18/25 10:00 06/25/25 10:25 10 MG Enteral Nutritional Formula 1,000 ml 25ML/HR GT 06/21/25 08:45 06/23/25 21:28 1,000 ML Pantoprazole Sodium 40 mg BID IV 06/21/25 15:15 06/26/25 10:01 40 MG Albuterol 2.5 mg Q4HR NEB 06/23/25 10:00 06/26/25 10:20 2.5 MG Fluconazole 100 ml @ 100 mls/hr DAILY IV 06/23/25 10:00 06/26/25 10:01 100 MLS/HR Ipratropium [place] 0.5 mg Q4HR NEB 06/23/25 10:00 06/26/25 10:20 0.5 MG Bumetanide 1 mg BIDD IV 06/24/25 18:00 06/25/25 05:57 1 MG Sodium Bicarbonate 1,300 mg BID GT 06/24/25 10:00 06/26/25 10:01 1,300 MG Ferrous Sulfate 325 mg TIDWM PO 06/24/25 12:15 06/25/25 18:00 325 MG Doxycycline Monohydrate 100 mg Q12HR GT 06/24/25 12:30 06/26/25 10:01 100 MG Levofloxacin 100 ml @ 100 mls/hr Q48H IV 06/27/25 16:45 Acetylcysteine 100 mg Q4HR NEB 06/26/25 10:00 06/26/25 10:20 100 MG Cefepime HCl 50 ml @ 12.5 mls/hr DAILY IV 06/26/25 10:00 objective GENERAL:Normal, LUNGS:Abnormal (Diminished), CVS:Normal, ABDOMEN:Normal, SKIN:Normal, NEURO:Normal laboratory and microbiology Laboratory Tests 06/26/25 05:55 06/26/25 05:50 Test 06/26/25 05:50 Range/Units Serum Glucose 77 74-106 mg/dL Problems(with codes): (1) Acute renal failure (2) Acute on chronic anemia (3) UTI (urinary tract infection) (4) Encounter for gastrojejunal tube placement Prognosis Plan Continue G-tube feedings Prognosis is very poor Patient may be a good candidate for hospice evaluation Dietary Evaluation Review Recommendations by RD: Dietary education by RD Comments: 1. TPN per pharmacy to meet pt's needs @ 100%. 2. When GT available, EMIR [place] @25ml/hr (49g Protein 1062 kcal 436ml water) plus Dextrose 5% for an addition 200 kcal 3. continue iron supplementation 4. Reassess in 3-5 days Expected Outcomes/Goals: imprvoed nutrition status, avoid uremic symptoms, gradual wt gains. Plan discussed with: Other (Dr Ugalde) CC Plasma Assessment Blood Product Administration S: 1202 CHANTE PALMER MD Jun 26, 2025 12:33
[2025-06-26] MEDS: CEFEPIME 2GM/50ML NS 50 ML IV SCH (12:47)
--- NOTE | 2025-06-26 14:44 | DVHPN2 ---
Progress Note Date Seen: Jun 26, 2025 Has the PT tested + for MRSA If YES, has PT been informed?: Yes Medical Necessity Reason Pt with a Central, PICC or Fol: Yes The following are medically ne: Smith Catheter Reason for smith catheter: Bladder Retention/Obstruc Subjective Review of Systems: Not Done (Unable to obtain) Objective vital signs Vital Sign Date Time Temp Pulse Resp B/P (MAP) Pulse Ox O2 Delivery O2 Flow Rate FiO2 06/26/25 14:19 48 24 87 06/26/25 13:00 96.5 158/93 (114) 96.5 06/26/25 10:30 Non-Rebreather 15.0 06/26/25 10:30 N/A Total Intake and Output 06/25/25 06/25/25 06/26/25 15:00 23:00 07:00 Intake Total 300 ml 10 ml 550 ml Output Total 250 ml 100 ml Balance 300 ml -240 ml 450 ml medications Current Medications Medications Dose Ordered Sig/Wai Route Start Time Stop Time Status Last Admin Dose Admin Enoxaparin Sodium 40 mg DAILY SC 06/17/25 10:00 UNV Acetaminophen 650 mg Q6HP PRN PO 06/17/25 07:45 Nitroglycerin 0.4 mg Q5MINP PRN SL 06/17/25 07:45 Furosemide 40 mg DAILY PO 06/17/25 10:00 Cancel Tamsulosin HCl 0.4 mg DAILY PO 06/17/25 10:00 06/26/25 10:01 0.4 MG Carvedilol 6.25 mg Q12HR PO 06/17/25 10:00 06/25/25 10:25 6.25 MG Hydralazine HCl 10 mg Q6HR IV 06/17/25 12:00 06/26/25 12:00 10 MG Diagnostic Test (Pha) 1 strip ACHS 06/17/25 12:45 06/26/25 12:54 1 STRIP Insulin Human Regular ACHS SC 06/17/25 12:45 06/26/25 13:13 2 UNITS Dextrose 50 ml UD PRN IV 06/17/25 12:45 Amlodipine Besylate 10 mg DAILY GT 06/18/25 10:00 06/25/25 10:25 10 MG Enteral Nutritional Formula 1,000 ml 25ML/HR GT 06/21/25 08:45 06/23/25 21:28 1,000 ML Pantoprazole Sodium 40 mg BID IV 06/21/25 15:15 06/26/25 10:01 40 MG Albuterol 2.5 mg Q4HR NEB 06/23/25 10:00 06/26/25 10:20 2.5 MG Fluconazole 100 ml @ 100 mls/hr DAILY IV 06/23/25 10:00 06/26/25 10:01 100 MLS/HR Ipratropium [place] 0.5 mg Q4HR NEB 06/23/25 10:00 06/26/25 14:10 0.5 MG Bumetanide 1 mg BIDD IV 06/24/25 18:00 06/25/25 05:57 1 MG Sodium Bicarbonate 1,300 mg BID GT 06/24/25 10:00 06/26/25 10:01 1,300 MG Ferrous Sulfate 325 mg TIDWM PO 06/24/25 12:15 06/25/25 18:00 325 MG Doxycycline Monohydrate 100 mg Q12HR GT 06/24/25 12:30 06/26/25 10:01 100 MG Levofloxacin 100 ml @ 100 mls/hr Q48H IV 06/27/25 16:45 Acetylcysteine 100 mg Q4HR NEB 06/26/25 10:00 06/26/25 14:10 100 MG Cefepime HCl 50 ml @ 12.5 mls/hr DAILY IV 06/26/25 10:00 06/26/25 12:47 12.5 MLS/HR Examination: GENERAL:Abnormal, LUNGS:Abnormal (Diminished rhonchi), CVS:Normal, ABDOMEN:Normal (G-tube in place), SKIN:Normal, NEURO:Abnormal (Altered) laboratory and microbiology Laboratory Tests 06/26/25 05:55 06/26/25 05:50 Test 06/26/25 05:50 Range/Units Serum Glucose 77 74-106 mg/dL Microbiology Date/Time Source Procedure Growth Status 06/21/25 16:15 Abdomen Gram Stain - Final Complete 06/21/25 16:15 Wound Culture - Final Enterococcus faecium Yeast, not Diana albicans Presumptive Diana tropicalis Complete 06/17/25 15:20 Blood Blood Culture - Final NO GROWTH AFTER 5 DAYS OF INCUBATION. Complete Labs and/or images reviewed: Labs reviewed by me, Image(s) reviewed by me Problem List/Assessment/Plan Problem List/Assessment/Plan 1. Dislodged G-tube GI consult for replacement, IV fluids, monitor 2. Sepsis due to acute cystitis IV antibiotics, IV fluids, monitor blood cultures, monitor 3. Type 2 diabetes with hyperglycemia Insulin sliding scale, monitor 4. Anemia of chronic disease IV iron, monitor 5. Pleural effusion Monitor 6. History of CVA Monitor 7. Hypertensive urgency Antihypertensives, monitor 8. LISANDRO with ATN on CKD 3B IV fluids, nephrology consult, monitor 9. Hypernatremia Monitor CMP, monitor 10. sever protein deficiency Monitor Assessment/Plan Subjective: Patient's mentation is at baseline. Objective: Discussed case with mother would like patient to be stabilized prior to being discharged on hospice. Confirmed code status with patient's mother (Cait) will like to keep patient a DNR and DNI. 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 Patient's chest x-ray showed worsening opacities. Chest x-ray shows worsening of pneumonia, place patient on cefazolin and Levaquin. Patient appears tachypneic and in respiratory distress. Patient was also found to have right upper extremity swelling and bruising, was negative for DVT. Plan: Continue chest physiotherapy and Med-Neb treatment. Continue Levaquin and we will add cefazolin. Continue to monitor renal function. Discussed plan of care at length with patient's mother. Mother wishes to still be a DNR at this time and to continue hospice services outpatient. Monitor chest x-ray, monitor electrolytes Plan discussed with: Other (mother) My Orders My Orders Orders - ASIYA JACQUES [employer] Procedure Category Date Status Time Levofloxacin 250mg PHA 06/27/25 In Process (Levaquin 250mg) 16:45 Chest Portable XY 06/26/25 Resulted 07:07 Acetylcysteine PHA 06/26/25 In Process Inhalation 10% 10:00 Cefepime 2gm/50ml Ns PHA 06/26/25 In Process (Maxipime 2gm/50ml) 10:00 Rt Upper Dvt US 06/26/25 Resulted 09:44 Respiratory Culture JENNIFER 06/26/25 Logged W/ Gs 11:04 Insert Midline ORDERS 06/26/25 Transmitted 11:31 Dietary Evaluation Review Recommendations by RD: Dietary education by RD Comments: 1. TPN per pharmacy to meet pt's needs @ 100%. 2. When GT available, TF Nepro @25ml/hr (49g Protein 1062 kcal 436ml water) plus Dextrose 5% for an addition 200 kcal 3. continue iron supplementation 4. Reassess in 3-5 days Expected Outcomes/Goals: imprvoed nutrition status, avoid uremic symptoms, gradual wt gains. Date of Service: Jun 26, 2025 Billing Provider: MARIBEL WHALEN MD Common Visit Codes: 75645-ACUVINH INP/OBS CARE (MOD) CC Plasma Assessment Blood Product Administration S: [id number] ASIYA JACQUES Jun 26, 2025 14:44
[2025-06-26] MEDS: FERROUS SULFATE 300 MG/5 ML ORAL LIQ GT SCH (21:44)
--- NOTE | 2025-06-27 06:55 | DVHDS2 ---
Discharge Summary Date of Admission Jun 17, 2025 at 07:32 Date of Discharge: Jun 26, 2025 Labs/Diagnostic Data: Laboratory Results Test 06/26/25 17:22 06/26/25 05:55 06/26/25 05:50 06/25/25 04:52 POC Glucose 96 mg/dl (70-106) White Blood Count 16.5 10^3/uL (4.4-10.8) Red Blood Count 2.60 10^6/uL (4.5-5.90) Hemoglobin 7.6 g/dL (13.5-17.5) Hematocrit 23.2 % (41.0-53.0) Mean Corpuscular Volume 89.1 fL (80.0-100.0) Mean Corpuscular Hemoglobin 29.1 pg (28.0-32.0) Mean Corpuscular Hemoglobin Concent 32.6 g/dL (32.0-36.0) Red Cell Distribution Width 18.2 % (11.8-14.3) Platelet Count 95 10^3/uL (140-450) Mean Platelet Volume 13.2 fL (6.9-10.8) Neutrophils (%) (Auto) % (37.0-80.0) Lymphocytes (%) (Auto) % (10.0-50.0) Monocytes (%) (Auto) % (0.0-12.0) Basophils (%) (Auto) % (0.0-2.0) Neutrophils # (Auto) 10 ^3/uL (1.6-8.6) Lymphocytes # (Auto) 10 ^3/uL (0.4-5.4) Monocytes # (Auto) 10 ^3/uL (0-1.3) Differential Total Cells Counted 100.0 (100) Neutrophils % (Manual) 87 (37.0-80.0) Band Neutrophils % (Manual) 7 Lymphocytes % (Manual) 6 (10.0-50.0) Monocytes % (Manual) 0 (0-12) Eosinophils % (Manual) 0 (0-7) Basophils % (Manual) 0 (0.0-2.0) Metamyelocytes % (manual) 0 Myelocytes % (Manual) 0 Promyelocytes % (Manual) 0 Blast Cells % (Manual) 0 Reactive Lymphocytes 0 Platelet Estimate Decreased [place] Cells Few Sodium Level 135 mmol/L (136-145) Potassium Level 4.6 mmol/L (3.5-5.1) Chloride Level 106 mmol/L (98-107) Carbon Dioxide Level 15 mmol/L (20-31) Anion Gap 14 (5-15) Blood Urea Nitrogen 134 mg/dL (9-23) Creatinine 3.90 mg/dL (0.700-1.30) Glomerular Filtration Rate Calc 19 mL/min (>90) BUN/Creatinine Ratio 34.4 (10.0-20.0) Serum Glucose 77 mg/dL (74-106) Calcium Level 6.5 mg/dL (8.7-10.4) Random Vancomycin Level < 3.0 ug/mL (5-10) Total Bilirubin < 0.2 mg/dL (0.2-1.0) Direct Bilirubin < 0.1 mg/dL (<0.3) Aspartate Amino Transferase (AST) 29 U/L (13-40) Alanine Aminotransferase (ALT) 23 U/L (7-40) Alkaline Phosphatase 321 U/L (46-116) Total Protein 4.5 g/dL (5.7-8.2) Albumin 2.1 g/dL (3.2-4.8) Test 06/24/25 11:18 06/22/25 13:50 06/21/25 06:54 06/19/25 13:20 Eosinophils (%) (Auto) 0.7 % (0.0-7.0) Eosinophils # (Auto) 0.1 10 ^3/uL (0-0.8) Basophils # (Auto) 0.1 10 ^3/uL (0-0.2) Nucleated Red Blood Cells 1.2 % Stool Occult Blood Negative (Negative) Stool Occult Blood Sample #3 (Negative) Hypochromasia (manual) Slight Poikilocytosis (manual) Moderate Anisocytosis (manual) Slight Tear Drop Cells Few Magnesium Level 1.8 mg/dL (1.6-2.6) B-Type Natriuretic Peptide 100.13 pg/mL (0-100) Phosphorus Level 6.2 mg/dL (2.4-5.1) Test 06/17/25 10:58 06/17/25 03:29 Urine Color Dark yellow (Yellow) Urine Clarity Ex.turbid (Clear) Urine pH 6.5 (5.0-9.0) Urine Specific [place]co 1.016 (1.001-1.035) Urine Protein 2+ (Negative) Urine Ketones Negative (Negative) Urine Blood 3+ /uL (Negative) Urine Nitrite Negative (Negative) Urine Bilirubin Negative (Negative) Urine Urobilinogen Normal mg/dL (Negative) Urine Leukocyte Esterase 3+ /uL (Negative) Urine RBC 22 /hpf (0 - 3) Urine WBC Clumps Present /hpf (None Seen) Urine Microscopic WBC 1038 /HPF (0-3) Urine Squamous Epithelial Cells None seen /hpf (<5) Urine Bacteria None seen /hpf (None Seen) Urine Yeast (Budding) Loaded /hpf (None Seen) Urine Glucose 3+ mg/dL (Normal) Iron Level 20 ug/dL (65-175) Total Iron Binding Capacity 139 ug/dL (250-425) Percent Iron Saturation 14.4 % (20-55) Other Laboratory Tests 06/26/25 05:55 06/26/25 05:50 Brief Hx & Hospital Course: Patient was initially admitted for dislodged G-tube. G-tube was replaced NG tube feedings were resumed. However patient was subsequently found to have LISANDRO with ATN. Patient received IV fluids per Nephrology. Patient was subsequently found to have pneumonia and was placed on IV antibiotics. Patient also had acute on chronic anemia was given packed red blood cell transfusion. Patient was unable to improve and ended up expiring on 06/26/2025 at 22:07. I discussed case with mother she wished to keep patient DNR and DNI. No resuscitation attempts were made as per family's request. Condition at Discharge: Undetermined Final Diagnosis/Problems List 1. Dislodged G-tube 2. Sepsis due to acute cystitis 3. Type 2 diabetes with hyperglycemia 4. Anemia of chronic disease 5. Pleural effusion 6. History of CVA 7. Hypertensive urgency 8. LISANDRO with ATN on CKD 3B 9. Hypernatremia 10. sever protein deficiency 11. PNA likley gram negative or gram positive Discharge Disposition: at Hospital Discharge Instruct/Medications Scheduled Amlodipine Besylate (Amlodipine Besylate), 1 TAB PO DAILY, (Reported) Atorvastatin Calcium (Atorvastatin Calcium), 20 MG PO HS Furosemide (Furosemide), 40 MG PO DAILY Glipizide (Glipizide Er), 1 TAB PO DAILY, (Reported) Lisinopril (Lisinopril), 1 TAB PO DAILY, (Reported) Sodium Bicarbonate (Sodium Bicarbonate), 650 MG PO TID Tamsulosin Hcl (Tamsulosin Hcl), 1 CAP PO DAILY, (Reported) Discharge Statement: "Patient was advised to return to the ER or call 911 if any headaches, dizziness, shortness of breath, chest pain, abdominal pain, bleeding, fevers, or worsening of medical condition. Patient was counseled about treatment plan, medications, possible side effects, patientverbalized understanding. All questions were answered to the best of my ability. This discharge took greater then 30 minutes in planning, reviewing documentation, counseling the patient, and discussing with other team members." ASSESSMENT ASSESSMENT Assessment ASIYA JACQUES [facility] Jun 27, 2025 06:55
== END 2025-06-26 22:07 | DRG 252 ==
LOC: EDSEX 02:18 → EDBD 02:18 → ER 02:18 → OVERFLOW 07:32 → CENTRAL 11:55 → WEST WING 06-25 22:17
PROVIDERS: ADMIT Nurse Practitioner; ATTEND Nurse Practitioner Family
PROC: 30233N1 Transfusion of Nonautologous Red Blood Cells into Peripheral Vein, Percutaneous Approach (ICD-10-PCS; principal; 2025-06-20)
PROC: 0DH63UZ Insertion of Feeding Device into Stomach, Percutaneous Approach (ICD-10-PCS; 2025-06-21)
DX: K94.23 Gastrostomy malfunction (principal); N17.0 Acute kidney failure with tubular necrosis; A41.9 Sepsis, unspecified organism; G82.50 Quadriplegia, unspecified; G93.40 Encephalopathy, unspecified; E43 Unspecified severe protein-calorie malnutrition; R64 Cachexia; T83.511A Infection and inflammatory reaction due to indwelling urethral catheter, initial encounter; E87.20 Acidosis, unspecified; E87.0 Hyperosmolality and hypernatremia; D63.1 Anemia in chronic kidney disease; Z66 Do not resuscitate; E86.0 Dehydration; J90 Pleural effusion, not elsewhere classified; E11.65 Type 2 diabetes mellitus with hyperglycemia; N30.00 Acute cystitis without hematuria; I16.0 Hypertensive urgency; N13.9 Obstructive and reflux uropathy, unspecified; N31.9 Neuromuscular dysfunction of bladder, unspecified; E11.22 Type 2 diabetes mellitus with diabetic chronic kidney disease; K94.22 Gastrostomy infection; Z68.1 Body mass index [BMI] 19.9 or less, adult; Z86.73 Personal history of transient ischemic attack (TIA), and cerebral infarction without residual deficits; Z79.899 Other long term (current) drug therapy; Z83.3 Family history of diabetes mellitus; Z82.3 Family history of stroke; Y84.8 Other medical procedures as the cause of abnormal reaction of the patient, or of later complication, without mention of misadventure at the time of the procedure; Y92.89 Other specified places as the place of occurrence of the external cause; J15.69 Pneumonia due to other Gram-negative bacteria; J15.9 Unspecified bacterial pneumonia; I12.9 Hypertensive chronic kidney disease with stage 1 through stage 4 chronic kidney disease, or unspecified chronic kidney disease; N18.32 Chronic kidney disease, stage 3b
CPT/HCPCS: 36415; 71045; 74018; 80048; 80053; 80076; 80202; 81001; 82270; 82962; 83540; 83550; 83735; 83880; 84100; 85007; 85014; 85018; 85025; 85027; 86850; 86900; 86901; 86920; 87040; 87077; 87081; 87086; 87186; 87205; 92610; 93971; 94640; 94667; 94668; 96365; G0378; J0692; J1450; J1756; J1815; J1956; J2470; J3480; P9047